=== PATIENT | female | born 1945 | race African-American/Black ===

== ENCOUNTER → 2016-07-17 | Outpatient (CLI) | payer OTHER, MEDICAID ==
[2016-07-13 08:08] VITALS: BP 121/73
[~2016-07-17] MED LIST: ACET500T55 PO; ALBU2.5V5 NEB; AMLO10TA2 PO; AMLO5TAB2 PO; ASPI-482 PO; ASPI81TA9 PO; CIPR250T30 PO; CLON0.1T PO; CLOP75TA PO; DONE10TA7 PO; DOXY100C2 PO; FAMO20TA5 PO; GLIM2TAB2 PO; HYDR-2869 PO; HYDR-971 PO; HYDR12.53 PO; HYDR12.58 PO; HYDR50TA6 PO; INSU100I13 SQ; INSU100I17 SQ; INSU100I27 SQ; LEVO250T25 PO; LINA5TAB PO; LOSA100T6 PO; METF500T4 PO; METO100T11 PO; METO50TA2 PO; POTA20PA PO; PREG50CA PO; PROAIR HFA8.5 GM IH; SPIR25TA PO
--- NOTE | 2016-07-17 08:13 | RAD ---
EXAM: Right lower extremity arterial Doppler with ultrasound ankle brachial index. HISTORY: Bilateral extremity nonhealing wound. COMPARISON: None. FINDINGS: Grayscale and Doppler analysis of the right lower extremity arterial system was performed. Ultrasound ankle brachial indices were also calculated. There are triphasic waveforms through the popliteal artery. They become monophasic within the trifurcation vessels proximally. The anterior tibial, posterior tibial and peroneal arteries are patent proximally. There is monophasic flow within the dorsalis previous and distal posterior tibial artery. There are no elevated peak systolic velocities suggestive of focal stenosis. The right brachial pressure was 154 mmHg. The right posterior tibial and dorsalis previous arteries were noncompressible and ankle brachial indices could not be calculated. IMPRESSION: 1. Findings consistent with severe flow limiting stenosis in the region of the proximal right trifurcation. The dorsalis pedis and distal posterior tibial arteries are patent. 2. The distal posterior tibial and dorsalis previous arteries were noncompressible and ankle brachial indices could not be calculated.
== END | disposition home or self-care (01) ==
LOC: US 06:43
PROVIDERS: ATTEND Preventive Medicine Undersea and Hyperbaric Medicine
DX: L97.919 Non-pressure chronic ulcer of unspecified part of right lower leg with unspecified severity (principal); M79.604 Pain in right leg
CPT/HCPCS: 93922; 93926

== ENCOUNTER 2016-07-21 08:10 | Outpatient (CLI) | payer OTHER, MEDICAID ==
[~2016-07-21] VITALS: Ht 175.3 cm; Wt 95.3 kg
[2016-07-21] VITALS (12 sets, daily range): BP systolic 124–178; BP diastolic 55–77
[2016-07-21 08:53] LABS: HEMATOCRIT 39.7 % (36.0-47.0); HEMOGLOBIN 13.2 g/dL (12.0-15.5); RED BLOOD COUNT 4.39 x10^6/uL (3.50-5.40); RED CELL DISTRIBUTION WIDTH 13.2 % (11.5-14.5); WHITE BLOOD COUNT 8.7 x10^3/uL (4.0-11.0)
[2016-07-21] MEDS ORDERED: IV NORMAL SALINE 1000ML BAG 1,000 ML IV SCH (09:00)
[2016-07-21] MEDS ORDERED: CARV12.52 PO (09:03)
[2016-07-21] MEDS ORDERED: HYDR25TA9 PO (09:03)
[2016-07-21] MEDS ORDERED: ATOR40TA59 PO (09:03)
[2016-07-21] MEDS ORDERED: IPRA3AMP NEB (09:03)
[2016-07-21] MEDS ORDERED: INSU100I13 SQ (09:03)
[2016-07-21] MEDS ORDERED: POTA10TA10 PO (09:03)
[2016-07-21] MEDS ORDERED: DICL100G7 TP (09:03)
[2016-07-21] MEDS ORDERED: SPIR25TA3 PO (09:03)
[2016-07-21] MEDS ORDERED: LIDO700A27 TP (09:03)
[2016-07-21] MEDS ORDERED: GABA-585 PO (09:03)
[2016-07-21] MEDS ORDERED: BUDE10.2 IH (09:03)
[2016-07-21] MEDS ORDERED: FLUT9.9S NS (09:03)
[2016-07-21] MEDS ORDERED: PROVENTIL HFA6.7 GM IH (09:03)
[2016-07-21 09:10] LABS: CALCIUM 10.1 mg/dL (8.5-10.1); CREATININE 1.3 mg/dL (0.6-1.0); GFR 48.7; POTASSIUM 3.6 mmol/L (3.5-5.1)
[2016-07-21 09:15] LABS: INR 1.1 (0.8-1.1); PROTHROMBIN TIME PATIENT 13.5 SEC (11.7-14.0)
[2016-07-21] MEDS ORDERED: IODIXANOL 320 MG/ML 100 ML VIAL. ONE (09:40)
[2016-07-21] MEDS ORDERED: LIDOCAINE 2% 20 ML VIAL. ONE (09:40)
[2016-07-21] MEDS ORDERED: FENTANYL PF 250 MCG/5 ML VIAL. ONE (09:44)
[2016-07-21] MEDS ORDERED: MIDAZOLAM HCL/PF 5 MG/5 ML VIAL ONE (09:44)
[2016-07-21] MEDS ORDERED: IODIXANOL 320 MG/ML 100 ML VIAL. IART ONE (09:45)
[2016-07-21] MEDS ORDERED: LIDOCAINE 2% 20 ML VIAL. IJ ONE (09:45)
[2016-07-21] MEDS ORDERED: MIDAZOLAM HCL/PF 5 MG/5 ML VIAL IV ONE (09:45)
[2016-07-21] MEDS ORDERED: FENTANYL PF 250 MCG/5 ML VIAL. IV ONE (09:45)
--- NOTE | 2016-07-21 10:07 | PDOC ---
MODERATE SEDATION ASSESSMENT RISKS/ALTERNATIVES Risks/Alternatives Risks and alternatives of this type of sedation and procedure discussed with: RISK/ALTERNATIVES: Patient H & P ON CHART H & P H & P on chart and reviewed for co-morbid conditions and appropriate labs. H&P ON CHART: Yes STATUS PREG STATUS ASSESSED: N/A MEDS/ALLERGIES REVIEWED Meds/Allergies Reviewed Medications and Allergies including time and route of recently administered narcotics and sedatives. MEDS/ALLERGIES REVIEWED: Yes ASA RATING ASA RATING: II AIRWAY ASSESSMENT Airway Assessment Airway patency, oral function limitations, presence of caps, crowns, dentures, partials, and ability to extend neck assessed. AIRWAY ASSESSMENT: Yes MALLAMPATI SCORE MALLAMPATI SCORE: II PRE-SEDATION ASSESSMENT PRE-SEDATION ASSESSMENT: Yes MILTON CASTANEDA MD Jul 21, 2016 10:07
[2016-07-21] MEDS ORDERED: IV 1/2 NORMAL SALINE 1,000 ML IV SCH (10:42)
[2016-07-21] MEDS ORDERED: ACETAMINOPHEN 325 MG TABLET. PO PRN (10:45)
--- NOTE | 2016-07-21 11:19 | CARD ---
APPROVED REPORT Patient StatusOUT-PATIENT Syrup Blender: Yelitza Chen RT (R) Procedure(s) performed: Aortogram with bilateral lower extremity runoff INDICATION FOR PROCEDURE The indication(s) include : Peripheral vascular disease, claudication and nonhealing ulcer right lowe r extremity. PROCEDURE NARRATIVE After explaining the risks, benefits and alternative options, informed consent the patient. Patient w as brought to the cardiac [facility] and her left groin was prepped and draped in the usual fashion. 20 mL of 2% lidocaine was infiltrated into the skin and subcutaneous tissues for local anesthesia. Katja rial access was obtained in the left common femoral artery and a 5 Welsh sheath was inserted. 5 Fren ch pigtail catheter was used to perform aortogram with bilateral lower extremity runoff. Following fi ndings were noted. FINDINGS 1. No significant stenosis involving the distal descending aorta, bilateral common and external laura c arteries. 2. No significant stenosis involving bilateral common femoral arteries. 3. 30% stenosis involving the distal segment of the right superficial femoral artery. 30% stenosis i nvolving the mid to distal segment of the left superficial femoral artery. 4. No significant stenosis involving bilateral popliteal arteries. 5. The right anterior tibial artery showed 100% chronic occlusion, posterior tibial artery showed 10 0% chronic total occlusion. The right peroneal artery showed 100% occlusion proximally with reconsti tution in the proximal to mid segment via collaterals. The distal segment of the peroneal arery showe d 100% occlusion with reconstitution of the dorsalis pedis via collaterals. 6. The left anterior tibial artery showed 100% chronic occlusion, posterior tibial artery showed 100 % chronic occlusion. The left peroneal artery showed 100% occlusion proximally with reconstitution o f proximal to mid segment via collaterals. Conclusion Severe below the knee peripheral vascular disease as described above Recommendations Vascular surgery consultation for possible surgical revascularization
== END 2016-07-21 14:30 | disposition home or self-care (01) ==
LOC: CCL 08:10
PROVIDERS: ATTEND Internal Medicine Cardiovascular Disease
DX: I73.9 Peripheral vascular disease, unspecified (principal); I10 Essential (primary) hypertension; M19.90 Unspecified osteoarthritis, unspecified site; E11.9 Type 2 diabetes mellitus without complications; Z90.710 Acquired absence of both cervix and uterus; Z87.39 Personal history of other diseases of the musculoskeletal system and connective tissue; Z86.73 Personal history of transient ischemic attack (TIA), and cerebral infarction without residual deficits; Z79.01 Long term (current) use of anticoagulants
CPT/HCPCS: 36200; 36415; 75630; 80048; 85027; 85610; 85730; C1769; C1771; C1892; J2250; J3010; J7030; Q9967

== ENCOUNTER → 2016-08-03 | Outpatient (CLI) | payer OTHER, MEDICAID ==
[2016-07-21 14:30] VITALS: BP 142/55
[~2016-08-03] MED LIST changes: +ATOR40TA59 PO; +BUDE10.2 IH; +CARV12.52 PO; +CEPH500C PO; +DICL100G7 TP; +FLUT9.9S NS; +GABA-585 PO; +HYDR25TA9 PO; +IPRA3AMP NEB; +LIDO700A27 TP; +POTA10TA10 PO; +PROVENTIL HFA6.7 GM IH; +SPIR25TA3 PO
== END | disposition home or self-care (01) ==
LOC: PMGWOUND 08:20
PROVIDERS: ATTEND Emergency Medicine Undersea and Hyperbaric Medicine
DX: I70.232 Atherosclerosis of native arteries of right leg with ulceration of calf (principal); E11.622 Type 2 diabetes mellitus with other skin ulcer; L97.911 Non-pressure chronic ulcer of unspecified part of right lower leg limited to breakdown of skin; I10 Essential (primary) hypertension; E11.40 Type 2 diabetes mellitus with diabetic neuropathy, unspecified; J42 Unspecified chronic bronchitis; M19.90 Unspecified osteoarthritis, unspecified site; E11.51 Type 2 diabetes mellitus with diabetic peripheral angiopathy without gangrene; Z86.73 Personal history of transient ischemic attack (TIA), and cerebral infarction without residual deficits
CPT/HCPCS: 99214

== ENCOUNTER 2016-08-04 11:06 | Inpatient (IN) | payer OTHER, MEDICAID ==
[~2016-08-04] VITALS: Ht 175.3 cm; Wt 94.8 kg
[~2016-08-04 11:06] MED LIST changes: +BUPIVACAINE 0.25% 50 ML VIAL. ONE; +CEFAZOLIN SODIUM 1 GM in IV NORMAL SALINE 500ML BAG 500 ML IRR ONE; -CEPH500C PO; +FENTANYL PF 100 MCG/2 ML VIAL. IV PRN; +GELATIN SPONGE SIZE 100. ONE; +HEPARIN S0DIUM 5,000 UNIT in IV NORMAL SALINE 500ML BAG 500 ML IRR ONE; +IOHEXOL 300 MG/ML 100ML VIAL. ONE; +IV RINGERS,LACTATED 1000ML 1,000 ML IV SCH; +LIDOCAINE 1% 1 ML SYRINGE. ID PRN; +LIDOCAINE 1% PF 48 ML, SODIUM BICARBONATE VIAL 12 MEQ in TOTAL VOLUME SYRINGE 60 ML ID ONE; +MORPHINE SULFATE 2 MG/ML DISP.SYRIN. IV PRN; +PAPAVERINE 60 MG/2 ML VIAL FOR OR ONLY. ONE; +PROCHLORPERAZINE 10 MG/2 ML VIAL. IV PRN; +SURGICEL FIBRILLAR 1X2 EACH. ONE; +THROMBIN 20,000 UNIT SPRAY.SYRN KIT TP ONE
[2016-08-04] MEDS ORDERED: LIDOCAINE 1% PF 48 ML, SODIUM BICARBONATE VIAL 12 MEQ in TOTAL VOLUME SYRINGE 60 ML ID ONE (11:15)
[2016-08-04] MEDS ORDERED: CEFAZOLIN 2GM PREMIX 50 ML IV ONE (11:15)
[2016-08-04] MEDS ORDERED: CEPH500C PO (11:42)
[2016-08-04 11:53] LABS: BASO # 0.1 x10^3/uL (0.0-0.2); BASO % 1 % (0-3); EOS % 3 % (0-3); HEMOGLOBIN 12.2 g/dL (12.0-15.5); LYMPH % 24 % (24-48); MEAN CORPUSCULAR HEMOGLOBIN 30 pg (25-35); MEAN CORPUSCULAR HGB CONC 32 g/dL (31-37); MEAN CORPUSCULAR VOLUME 93 fL (79-100); MONO % 7 % (0-9); NEUT % 65 % (31-73); PLATELET COUNT 238 x10^3/uL (140-400); RED CELL DISTRIBUTION WIDTH 13.5 % (11.5-14.5); WHITE BLOOD COUNT 8.6 x10^3/uL (4.0-11.0)
[2016-08-04 12:06] LABS: CALCIUM 9.9 mg/dL (8.5-10.1); CREATININE 1.3 mg/dL (0.6-1.0); GFR 48.7; POTASSIUM 3.6 mmol/L (3.5-5.1)
[2016-08-04 12:10] LABS: INR 1.1 (0.8-1.1); PROTHROMBIN TIME PATIENT 13.2 SEC (11.7-14.0)
[2016-08-04] MEDS ORDERED: DEXAMETHASONE SOD PHOS 20 MG/5 ML VIAL. ONE (12:56)
[2016-08-04] MEDS ORDERED: ONDANSETRON PF 4 MG/2 ML VIAL. ONE (12:56)
[2016-08-04] MEDS ORDERED: FENTANYL PF 100 MCG/2 ML VIAL. ONE ×3 (12:56→17:26)
[2016-08-04] MEDS ORDERED: PROPOFOL 20 ML IV ONE (12:56)
[2016-08-04] MEDS ORDERED: LIDOCAINE 2% 100 MG/5 ML DISP.SYRIN. ONE (12:56)
[2016-08-04] MEDS ORDERED: ROCURONIUM 50 MG/5 ML VIAL. ONE (12:56)
[2016-08-04] MEDS: IV NORMAL SALINE 1000ML BAG 1,000 ML IV SCH ×2 (13:54→23:54)
[2016-08-04] MEDS ORDERED: ONDANSETRON PF 4 MG/2 ML VIAL. IV PRN (14:00)
[2016-08-04] MEDS ORDERED: 0.9 % SODIUM CHLORIDE 10 ML DISP.SYRIN. IV PRN (14:00)
[2016-08-04] MEDS ORDERED: DIPHENHYDRAMINE HCL 25 MG CAPSULE PO PRN (14:00)
[2016-08-04] MEDS ORDERED: ZOLPIDEM 5 MG TABLET. PO PRN (14:00)
[2016-08-04] MEDS ORDERED: CALCIUM CARBONATE 500 MG TAB.CHEW PO PRN (14:00)
[2016-08-04] MEDS ORDERED: MAG HYDROX/ALUMINUM HYD/SIMETH 30 ML ORAL.SUSP PO PRN (14:00)
[2016-08-04] MEDS ORDERED: NALOXONE 0.4 MG/ML VIAL. IV PRN (14:00)
[2016-08-04] MEDS ORDERED: MORPHINE SULFATE 2 MG/ML DISP.SYRIN. IV PRN (14:00)
[2016-08-04] MEDS ORDERED: DIPHENHYDRAMINE 50 MG/ML VIAL IV PRN (14:00)
[2016-08-04] MEDS ORDERED: MIDAZOLAM HCL 2 MG/2 ML VIAL. ONE (14:02)
[2016-08-04] MEDS ORDERED: HEPARIN for IV BOLUS 10,000 UNIT/10 ML VIAL. ONE (14:27)
[2016-08-04] MEDS ORDERED: SEVOFLURANE > 120 MINUTES. IH ONE (17:07)
[2016-08-04] MEDS ORDERED: LABETALOL 20 MG/4 ML DISP.SYRIN. ONE (17:23)
[2016-08-04] MEDS ORDERED: hydrALAZINE 20 MG/ML VIAL. ONE (17:28)
--- NOTE | 2016-08-04 17:52 | PDOC ---
VASCULAR BRIEF OPERATIVE NOTE Date: Aug 04, 2016 Pre-Op Diagnosis ischemic ulcer right leg Post-Op Diagnosis same Procedure Performed right popliteal to peroneal artery bypass graft with ipsilateral saphenous vein , right leg debridement(excisional)_ Surgeon Israel Blood Loss 100ml DEISI CLEVELAND MD Aug 04, 2016 17:52
[2016-08-04] MEDS: FENTANYL PF 100 MCG/2 ML VIAL. IV PRN ×3 (18:30→19:56)
[2016-08-04 18:40] VITALS: BP 154/78
[2016-08-04] MEDS: CEFAZOLIN 2GM PREMIX 50 ML IV SCH (19:57)
[2016-08-04 20:00] VITALS: BP 147/78
[2016-08-04] MEDS: HYDROMORPHONE 2 MG/ML VIAL. IV PRN (21:16)
[2016-08-04 23:00] VITALS: BP 132/72
[2016-08-04] MEDS: OXYCODONE IR 5 MG TABLET. PO PRN (23:02)
[2016-08-04] MEDS: BENZOCAINE/MENTHOL LOZENGE. PO PRN (23:02)
[2016-08-05] MEDS: CEFAZOLIN 2GM PREMIX 50 ML IV SCH ×2 (02:09→08:36)
[2016-08-05] MEDS: HYDROCODONE/APAP 5/325MG TABLET. PO PRN ×4 (02:10→21:54)
[2016-08-05] MEDS: HYDROMORPHONE 2 MG/ML VIAL. IV PRN (02:11)
[2016-08-05 03:00] VITALS: BP 137/68
[2016-08-05 04:05] LABS: BASO % 0 % (0-3); EOS % 0 % (0-3); HEMATOCRIT 34.5 % (36.0-47.0); LYMPH % 8 % (24-48); MEAN CORPUSCULAR HEMOGLOBIN 30 pg (25-35); MEAN CORPUSCULAR HGB CONC 32 g/dL (31-37); MEAN CORPUSCULAR VOLUME 93 fL (79-100); MONO % 4 % (0-9); NEUT % 87 % (31-73); PLATELET COUNT 241 x10^3/uL (140-400); RED CELL DISTRIBUTION WIDTH 13.4 % (11.5-14.5); WHITE BLOOD COUNT 12.6 x10^3/uL (4.0-11.0)
[2016-08-05 04:15] LABS: CALCIUM 9.1 mg/dL (8.5-10.1); CREATININE 1.6 mg/dL (0.6-1.0); GFR 38.3
[2016-08-05] MEDS: BENZOCAINE/MENTHOL LOZENGE. PO PRN ×2 (05:47→13:39)
[2016-08-05] MEDS: OXYCODONE IR 5 MG TABLET. PO PRN ×4 (05:47→20:14)
[2016-08-05 07:00] VITALS: BP 159/66
[2016-08-05] MEDS ORDERED: ASPIRIN ENTERIC COATED 325 MG TABLET.DR. PO SCH (08:00)
[2016-08-05] MEDS: ENOXAPARIN 40 MG/0.4 ML SYRINGE. SQ SCH (08:36)
--- NOTE | 2016-08-05 09:27 | RAD ---
Indication postop. Incorrect count. Possible foreign body. AP and lateral views targeted to the right knee were obtained. Surgical clips are noted. Skin bertha are additionally noted. There is air in the soft tissues compatible with recent operative intervention. A definite unexpected radiopaque foreign body is not seen.
[2016-08-05 11:00] VITALS: BP 130/55
[2016-08-05 13:20] LABS: PLT ESTIMATE ADEQUATE (ADEQUATE)
[2016-08-05 14:26] LABS: BASO % 0 % (0-3); EOS % 0 % (0-3); HEMATOCRIT 33.7 % (36.0-47.0); HEMOGLOBIN 10.6 g/dL (12.0-15.5); LYMPH # 2.1 x10^3/uL (1.0-4.8); LYMPH % 15 % (24-48); MEAN CORPUSCULAR HEMOGLOBIN 30 pg (25-35); MEAN CORPUSCULAR HGB CONC 31 g/dL (31-37); MEAN CORPUSCULAR VOLUME 94 fL (79-100); MONO % 10 % (0-9); NEUT % 74 % (31-73); PLATELET COUNT 220 x10^3/uL (140-400); RED BLOOD COUNT 3.58 x10^6/uL (3.50-5.40); RED CELL DISTRIBUTION WIDTH 13.5 % (11.5-14.5); WHITE BLOOD COUNT 13.8 x10^3/uL (4.0-11.0)
[2016-08-05 15:00] VITALS: BP 144/70
[2016-08-05] MEDS ORDERED: INSULIN DETEMIR 300 UNITS/3 ML INSULN.PEN. SQ SCH (17:30)
[2016-08-05] MEDS ORDERED: DEXTROSE 50% 25 GM / 50ML DISP.SYRIN. IV PRN (17:30)
[2016-08-05] MEDS ORDERED: ALBUTEROL SULFATE 2.5 MG/3 ML NEBU. NEB PRN (17:45)
[2016-08-05] MEDS: INSULIN ASPART 300 UNITS/3 ML INSULN.PEN SQ SCH (17:49)
[2016-08-05] MEDS: SPIRONOLACTONE 25 MG TABLET PO SCH (17:54)
[2016-08-05] MEDS: LOSARTAN POTASSIUM 50 MG TABLET. PO SCH (17:55)
[2016-08-05] MEDS: AMLODIPINE BESYLATE 10 MG TABLET PO SCH (17:55)
[2016-08-05] MEDS: HYDROCHLOROTHIAZIDE 25 MG TABLET PO SCH (17:55)
[2016-08-05] MEDS ORDERED: ASPIRIN ENTERIC COATED 81 MG TABLET.DR. PO SCH (18:00)
[2016-08-05 19:00] VITALS: BP 124/55
--- NOTE | 2016-08-05 19:18 | PDOC ---
Provider Note Provider Note POD#1c/ incisional pain Dressing dry foot warm LAB H/H Cr1.6 CHO 282 IMP doing well PLAN can transfer from tele replace MG Increase activity DEISI CLEVELAND MD Aug 05, 2016 19:18
[2016-08-05] MEDS ORDERED: MAGNESIUM SULFATE IV ONE (19:30)
[2016-08-05] MEDS: BUDESONIDE 0.5 MG/2 ML NEBU. NEB SCH (19:30)
[2016-08-05] MEDS ORDERED: SODIUM CHLORIDE 0.9% IV ONE (19:30)
[2016-08-05] MEDS: ALBUTEROL SULFATE 2.5 MG/3 ML NEBU. NEB SCH (19:30)
[2016-08-05] MEDS: GABAPENTIN 100 MG CAPSULE. PO SCH (20:12)
[2016-08-05] MEDS: DONEPEZIL HCL 10 MG TABLET. PO SCH (20:14)
[2016-08-05] MEDS: ATORVASTATIN CALCIUM 40 MG TABLET. PO SCH (20:14)
[2016-08-05 23:00] VITALS: BP 153/58
[2016-08-06 02:56] VITALS: BP 145/64
[2016-08-06] MEDS: OXYCODONE IR 5 MG TABLET. PO PRN ×3 (05:21→18:57)
[2016-08-06 07:00] VITALS: BP 116/50
[2016-08-06] MEDS: ENOXAPARIN 40 MG/0.4 ML SYRINGE. SQ SCH (07:32)
[2016-08-06] MEDS: CARVEDILOL 12.5 MG TABLET PO SCH ×2 (07:33→16:37)
[2016-08-06] MEDS: HYDROCODONE/APAP 5/325MG TABLET. PO PRN ×4 (07:33→23:01)
[2016-08-06] MEDS: ASPIRIN ENTERIC COATED 81 MG TABLET.DR. PO SCH (07:34)
[2016-08-06] MEDS: INSULIN ASPART 300 UNITS/3 ML INSULN.PEN SQ SCH ×3 (07:36→17:54)
[2016-08-06] MEDS ORDERED: POTASSIUM CHLORIDE 10 MEQ TABLET.ER. PO SCH (08:00)
[2016-08-06] MEDS: ALBUTEROL SULFATE 2.5 MG/3 ML NEBU. NEB SCH ×4 (08:20→20:42)
[2016-08-06] MEDS: BUDESONIDE 0.5 MG/2 ML NEBU. NEB SCH ×2 (08:20→20:42)
[2016-08-06] MEDS: GABAPENTIN 100 MG CAPSULE. PO SCH ×3 (09:13→21:15)
[2016-08-06] MEDS: HYDROCHLOROTHIAZIDE 25 MG TABLET PO SCH (09:13)
[2016-08-06] MEDS: SPIRONOLACTONE 25 MG TABLET PO SCH (09:13)
[2016-08-06] MEDS: AMLODIPINE BESYLATE 10 MG TABLET PO SCH (09:15)
--- NOTE | 2016-08-06 10:13 | PDOC ---
Provider Note Provider Note VASCULAR, POD#2 still c/o incisional pain Dressings dry foot warm biphasic Doppler DP right Blood sugars still elevated but improved IMP doing well TAMAR to floor DEISI CLEVELAND MD Aug 06, 2016 10:13
[2016-08-06] MEDS ORDERED: INSULIN DETEMIR 300 UNITS/3 ML INSULN.PEN. SQ ONE (10:30)
--- NOTE | 2016-08-06 10:35 | PDOC ---
Provider Note Provider Note [id number] ANDREY GASCA MD Aug 06, 2016 10:35
[2016-08-06] MEDS: LOSARTAN POTASSIUM 50 MG TABLET. PO SCH (10:50)
[2016-08-06 11:00] VITALS: BP 136/54
[2016-08-06 15:00] VITALS: BP 146/59
--- NOTE | 2016-08-06 18:34 | CONS ---
DATE OF CONSULTATION: 08/06/2016 CHIEF COMPLAINT: Diabetes. HISTORY OF PRESENT ILLNESS: A 71-year-old black female patient of Dr. Mackenzie who underwent a right-sided femoral popliteal bypass per Dr. Wood on 08/04/2016. She is recovering well so far and I was asked to consult regarding diabetes and medical management. Blood sugars have been mildly elevated since the surgery and review of the record shows hemoglobin A1c was 7.9 in mid 03/2016. She has no other specific complaints at this time. PAST MEDICAL HISTORY: Well documented in the old record. HOME MEDICATIONS: Levemir 28 and NovoLog 5 with meals. Multiple medications listed per the chart. ALLERGIES: No allergies. SOCIAL HISTORY: Single, nonsmoker, nondrinker. FAMILY HISTORY: Unremarkable. REVIEW OF SYSTEMS: No other complaints. OBJECTIVE: ENT: All within normal limits. NECK: No masses, nodes or bruits. LUNGS: Clear. CARDIOVASCULAR: Regular rate. No irregular beat, murmur or tachycardia. ABDOMEN: Soft, benign and nontender. EXTREMITIES: Right leg has dressings on the right medial calf consistent with her postoperative care and also wound on the anterior miner, which is covered as well. Distal pulses are present, right greater than left foot. NEUROLOGIC: Physiologic, moves all extremities. Gait not tested. She has a reasonable sensation in both lower extremities. Mental status is intact. LABORATORY STUDY: Showed mild renal insufficiency, mildly elevated potassium of 5.0. ASSESSMENT: 1. Insulin-dependent diabetes with fairly good control for her age. 2. Status post right femoral arterial bypass for peripheral vascular disease. 3. Chronic kidney disease 3, stable. 4. Mild hyperkalemia, likely secondary to meds. 5. History of hypertension. PLAN: We will increase Levemir mildly and resume AC dosing for now. We will hold Aldactone and potassium given her mild hyperkalemia. ANDREY GASCA MD DR: ILIANA/shane JOB#: [id number] / [id number]
[2016-08-06 19:10] VITALS: BP 149/60
[2016-08-06] MEDS: ATORVASTATIN CALCIUM 40 MG TABLET. PO SCH (21:14)
[2016-08-06] MEDS: DONEPEZIL HCL 10 MG TABLET. PO SCH (21:15)
[2016-08-06] MEDS: INSULIN DETEMIR 300 UNITS/3 ML INSULN.PEN. SQ SCH (21:24)
[2016-08-06 23:23] VITALS: BP 179/77
[2016-08-07 03:34] VITALS: BP 153/58
[2016-08-07] MEDS: HYDROCODONE/APAP 5/325MG TABLET. PO PRN ×4 (04:42→21:59)
[2016-08-07 07:00] VITALS: BP 125/65
[2016-08-07] MEDS: GABAPENTIN 100 MG CAPSULE. PO SCH ×3 (08:30→21:18)
[2016-08-07] MEDS: AMLODIPINE BESYLATE 10 MG TABLET PO SCH (08:30)
[2016-08-07] MEDS: ASPIRIN ENTERIC COATED 81 MG TABLET.DR. PO SCH (08:30)
[2016-08-07] MEDS: HYDROCHLOROTHIAZIDE 25 MG TABLET PO SCH (08:31)
[2016-08-07] MEDS: CARVEDILOL 12.5 MG TABLET PO SCH ×2 (08:31→17:07)
[2016-08-07] MEDS: LOSARTAN POTASSIUM 50 MG TABLET. PO SCH (08:32)
[2016-08-07] MEDS: ENOXAPARIN 40 MG/0.4 ML SYRINGE. SQ SCH (08:32)
--- NOTE | 2016-08-07 08:44 | PDOC ---
Provider Note Provider Note vss, no temp, no new sxs- glucose 140, 211, w/ added levemir- will add more novolog prn, rest same ANDREY GASAC MD Aug 07, 2016 08:44
[2016-08-07] MEDS: INSULIN ASPART 300 UNITS/3 ML INSULN.PEN SQ SCH ×3 (08:48→17:11)
[2016-08-07] MEDS: ALBUTEROL SULFATE 2.5 MG/3 ML NEBU. NEB SCH ×4 (09:13→20:07)
[2016-08-07] MEDS: BUDESONIDE 0.5 MG/2 ML NEBU. NEB SCH ×2 (09:13→20:07)
--- NOTE | 2016-08-07 09:27 | PDOC ---
SURGICAL PROGRESS NOTE Subjective pt complains of incisional pain but less so Vital Signs Vital Signs Date Time Temp Pulse Resp B/P Pulse Ox O2 Delivery O2 Flow Rate FiO2 08/07/16 09:10 95 Room Air 08/07/16 08:32 69 125/65 08/07/16 07:00 97.8 16 97.8 08/06/16 07:33 2.0 I&O Intake and Output 08/07/16 07:00 Intake Total 1860 ml Output Total 825 ml Balance 1035 ml Intake Oral 1860 ml Output Urine Total 825 ml # Voids 5 Extremities: Other (dressings right leg dry, wound dressing intact; foot warm) Labs Laboratory Tests Test 08/05/16 14:08 08/05/16 17:04 08/05/16 20:18 08/06/16 07:30 White Blood Count 13.8x10^3/uL (4.0-11.0) Red Blood Count 3.58x10^6/uL (3.50-5.40) Hemoglobin 10.6g/dL (12.0-15.5) Hematocrit 33.7% (36.0-47.0) Mean Corpuscular Volume 94fL (79-100) Mean Corpuscular Hemoglobin 30pg (25-35) Mean Corpuscular Hemoglobin Concent 31g/dL (31-37) Red Cell Distribution Width 13.5% (11.5-14.5) Platelet Count 220x10^3/uL (140-400) Neutrophils (%) (Auto) 74% (31-73) Lymphocytes (%) (Auto) 15% (24-48) Monocytes (%) (Auto) 10% (0-9) Eosinophils (%) (Auto) 0% (0-3) Basophils (%) (Auto) 0% (0-3) Neutrophils # (Auto) 10.2x10^3uL (1.8-7.7) Lymphocytes # (Auto) 2.1x10^3/uL (1.0-4.8) Monocytes # (Auto) 1.4x10^3/uL (0.0-1.1) Eosinophils # (Auto) 0.0x10^3/uL (0.0-0.7) Basophils # (Auto) 0.0x10^3/uL (0.0-0.2) Magnesium Level 1.5mg/dL (1.8-2.4) Glucose (Fingerstick) 282mg/dL (70-99) 301mg/dL (70-99) 190mg/dL (70-99) Test 08/06/16 11:50 08/06/16 17:41 08/06/16 20:48 08/07/16 07:35 Glucose (Fingerstick) 252mg/dL (70-99) 211mg/dL (70-99) 211mg/dL (70-99) 141mg/dL (70-99) Laboratory Tests Test 08/06/16 11:50 08/06/16 17:41 08/06/16 20:48 08/07/16 07:35 Glucose (Fingerstick) 252mg/dL (70-99) 211mg/dL (70-99) 211mg/dL (70-99) 141mg/dL (70-99) Problem List Problems Medical Problems: (1) Non-pressure ulcer of right lower extremity, limited to breakdown of skin Status: Acute Assessment/Plan Imp: patent bypass graft with ant. wound Plan: cont. wound care social group worker to assist with discharge planning. Problems: TRACY ADAMES II, MD Aug 07, 2016 09:27
[2016-08-07 11:00] VITALS: BP 148/54
[2016-08-07 15:00] VITALS: BP 139/56
[2016-08-07 19:30] VITALS: BP 137/59
[2016-08-07] MEDS: DONEPEZIL HCL 10 MG TABLET. PO SCH (21:00)
[2016-08-07] MEDS: ATORVASTATIN CALCIUM 40 MG TABLET. PO SCH (21:18)
[2016-08-07] MEDS: INSULIN DETEMIR 300 UNITS/3 ML INSULN.PEN. SQ SCH (21:21)
[2016-08-07 23:01] VITALS: BP 140/80
[2016-08-08 03:23] VITALS: BP 155/69
[2016-08-08 07:00] VITALS: BP 165/75
[2016-08-08] MEDS: ALBUTEROL SULFATE 2.5 MG/3 ML NEBU. NEB SCH ×4 (07:58→19:35)
[2016-08-08] MEDS: BUDESONIDE 0.5 MG/2 ML NEBU. NEB SCH ×2 (07:58→19:35)
[2016-08-08] MEDS ORDERED: INSULIN DETEMIR 300 UNITS/3 ML INSULN.PEN. SQ ONE (08:15)
--- NOTE | 2016-08-08 08:20 | PDOC ---
Provider Note Provider Note glucose still around 200, will add 6u more levemir for now, rest same ANDREY GASCA MD Aug 08, 2016 08:20
[2016-08-08] MEDS: AMLODIPINE BESYLATE 10 MG TABLET PO SCH (09:47)
[2016-08-08] MEDS: GABAPENTIN 100 MG CAPSULE. PO SCH ×3 (09:47→20:41)
[2016-08-08] MEDS: HYDROCHLOROTHIAZIDE 25 MG TABLET PO SCH (09:47)
[2016-08-08] MEDS: ASPIRIN ENTERIC COATED 81 MG TABLET.DR. PO SCH (09:47)
[2016-08-08] MEDS: ENOXAPARIN 40 MG/0.4 ML SYRINGE. SQ SCH (09:47)
[2016-08-08] MEDS: CARVEDILOL 12.5 MG TABLET PO SCH ×2 (09:48→17:40)
[2016-08-08] MEDS: LOSARTAN POTASSIUM 50 MG TABLET. PO SCH (09:48)
[2016-08-08] MEDS: HYDROCODONE/APAP 5/325MG TABLET. PO PRN ×2 (09:54→20:48)
[2016-08-08] MEDS: INSULIN ASPART 300 UNITS/3 ML INSULN.PEN SQ SCH ×3 (09:58→17:46)
[2016-08-08 10:28] LABS: HEMATOCRIT 35.3 % (36.0-47.0); HEMOGLOBIN 11.6 g/dL (12.0-15.5); RED BLOOD COUNT 3.88 x10^6/uL (3.50-5.40); RED CELL DISTRIBUTION WIDTH 13.2 % (11.5-14.5); WHITE BLOOD COUNT 9.8 x10^3/uL (4.0-11.0)
[2016-08-08 10:43] LABS: CALCIUM 9.7 mg/dL (8.5-10.1); CREATININE 1.3 mg/dL (0.6-1.0); GFR 48.7; MAGNESIUM 1.8 mg/dL (1.8-2.4); POTASSIUM 4.1 mmol/L (3.5-5.1)
[2016-08-08 11:00] VITALS: BP 138/57
--- NOTE | 2016-08-08 11:49 | PDOC ---
PROGRESS NOTES Subjective Subjective "I feel pretty worn out still." Complains of incisional pain. Objective Objective Vascular Surgery - POD#4 Right popliteal to peroneal artery bypass graft with ipsilateral saphenous vein, right leg debridement(excisional) O: Sitting in chair working with PT. CV: RRR. Vital signs stable. Pulm: Anteriorly clear. No dyspnea or SOB Abd: Rounded and soft. Active sounds. +BM yesterday. No nausea. RLE: Incision intact. No drainage. Chronic miner wound base very dry. Needs moisture applied. Doppled bypass graft and DP pulse. Lab: Glucose levels still labile. Renal function normalizing back to her baseline. Assessment/Plan: 1. PAD - POD#4 RLE with patent bypass. Continue antiplatelet therapy on ASA 2. Consult wound care for chronic wound to right miner. 3. Consult social and political studies professor for discharge planning and probable placement upon d /c. Should be ready next 24-48 hours. 4. CKD - back to baseline for patient and potassium level normalized. 5. Appreciate PCP assistance with diabetic mgmt while hospitalized. 6. Continue PT/OT for strengthening. May shower Vital Signs Date Time Temp Pulse Resp B/P Pulse Ox O2 Delivery O2 Flow Rate FiO2 08/08/16 11:19 Room Air 08/08/16 09:48 72 165/75 08/08/16 07:56 95 08/08/16 07:00 98.0 18 98.0 08/07/16 08:00 2.0 Intake and Output 08/08/16 07:00 Intake Total 240 ml Balance 240 ml Intake Oral 240 ml # Voids 5 # Bowel Movements 1 Assessment Assessment Problems Medical Problems: (1) Non-pressure ulcer of right lower extremity, limited to breakdown of skin Status: Acute Comment Review of Relevant I have reviewed the following items joel (where applicable) has been applied. Labs Laboratory Tests Test 08/06/16 11:50 08/06/16 17:41 08/06/16 20:48 08/07/16 07:35 Glucose (Fingerstick) 252mg/dL (70-99) 211mg/dL (70-99) 211mg/dL (70-99) 141mg/dL (70-99) Test 08/07/16 10:55 08/07/16 16:20 08/07/16 21:10 08/08/16 07:42 Glucose (Fingerstick) 190mg/dL (70-99) 216mg/dL (70-99) 239mg/dL (70-99) 150mg/dL (70-99) Test 08/08/16 10:14 White Blood Count 9.8x10^3/uL (4.0-11.0) Red Blood Count 3.88x10^6/uL (3.50-5.40) Hemoglobin 11.6g/dL (12.0-15.5) Hematocrit 35.3% (36.0-47.0) Mean Corpuscular Volume 91fL (79-100) Mean Corpuscular Hemoglobin 30pg (25-35) Mean Corpuscular Hemoglobin Concent 33g/dL (31-37) Red Cell Distribution Width 13.2% (11.5-14.5) Platelet Count 247x10^3/uL (140-400) Sodium Level 142mmol/L (136-145) Potassium Level 4.1mmol/L (3.5-5.1) Chloride Level 104mmol/L (98-107) Carbon Dioxide Level 32mmol/L (21-32) Anion Gap 6 (6-14) Blood Urea Nitrogen 26mg/dL (7-20) Creatinine 1.3mg/dL (0.6-1.0) Estimated GFR (Cockcroft-Gault) 48.7 Glucose Level 229mg/dL (70-99) Calcium Level 9.7mg/dL (8.5-10.1) Magnesium Level 1.8mg/dL (1.8-2.4) Laboratory Tests Test 08/07/16 16:20 08/07/16 21:10 08/08/16 07:42 08/08/16 10:14 Glucose (Fingerstick) 216mg/dL (70-99) 239mg/dL (70-99) 150mg/dL (70-99) White Blood Count 9.8x10^3/uL (4.0-11.0) Red Blood Count 3.88x10^6/uL (3.50-5.40) Hemoglobin 11.6g/dL (12.0-15.5) Hematocrit 35.3% (36.0-47.0) Mean Corpuscular Volume 91fL (79-100) Mean Corpuscular Hemoglobin 30pg (25-35) Mean Corpuscular Hemoglobin Concent 33g/dL (31-37) Red Cell Distribution Width 13.2% (11.5-14.5) Platelet Count 247x10^3/uL (140-400) Sodium Level 142mmol/L (136-145) Potassium Level 4.1mmol/L (3.5-5.1) Chloride Level 104mmol/L (98-107) Carbon Dioxide Level 32mmol/L (21-32) Anion Gap 6 (6-14) Blood Urea Nitrogen 26mg/dL (7-20) Creatinine 1.3mg/dL (0.6-1.0) Estimated GFR (Cockcroft-Gault) 48.7 Glucose Level 229mg/dL (70-99) Calcium Level 9.7mg/dL (8.5-10.1) Magnesium Level 1.8mg/dL (1.8-2.4) Medications Current Medications Heparin Sodium (Porcine) 5000 unit/Sodium Chloride 505 ml @ 505 mls/hr 1X PERIOP ONCE IRR Last administered on 08/04/16 14:29; Start 08/04/16 at 08:00 ; Stop 08/04/16 at 08:59; Status DC Cefazolin Sodium/ Sodium Chloride (Ancef/Iv Sodium Chloride 0.9% 500ml Bag) 500 ml @ 500 mls/hr 1X PERIOP ONCE IRR Last administered on 08/04/16 14:29; Start 08/04/16 at 08:00; Stop 08/04/16 at 08:59; Status DC Fentanyl Citrate (Fentanyl 2ml Vial) 25 mcg PRN Q5MIN PRN IV MILD PAIN; Start 08/04/16 at 07:00; Stop 08/05/16 at 06:59; Status DC Fentanyl Citrate (Fentanyl 2ml Vial) 50 mcg PRN Q5MIN PRN IV MODERATE PAIN Last administered on 08/04/16 19:56; Start 08/04/16 at 07:00; Stop 08/05/16 at 06:59; Status DC Morphine Sulfate 1 mg 1 mg PRN Q10MIN PRN IV SEVERE PAIN; Start 08/04/16 at 07: 00; Stop 08/05/16 at 06:59; Status DC Lactated Ringer's (Iv Lactated Ringers) 1,000 ml @ 30 mls/hr Q24H IV Last administered on 08/04/16 12:16; Start 08/04/16 at 07:00; Stop 08/04/16 at 18:59 ; Status DC Lidocaine HCl 2 ml 1X PRN PRN ID IV START; Start 08/04/16 at 07:00; Stop at 06:59; Status DC Hydromorphone HCl (Dilaudid) 0.5 mg PRN Q10MIN PRN IV SEVERE PAIN, Second choice Last administered on 08/05/16 02:11; Start 08/04/16 at 07:00; Stop 08/05 at 06:59; Status DC Prochlorperazine Edisylate (Compazine) 5 mg PACU PRN PRN IV NAUSEA; Start 08/04 at 07:00; Stop 08/05/16 at 06:59; Status DC Bupivacaine HCl (Marcaine 0.25%) 50 ml STK-MED ONCE .ROUTE ; Start 08/04/16 at 06:49; Stop 08/04/16 at 06:50; Status DC Papaverine HCl 60 mg STK-MED ONCE .ROUTE ; Start 08/04/16 at 06:49; Stop at 06:50; Status DC Iohexol (Omnipaque 300 Mg/ml) 100 ml STK-MED ONCE .ROUTE ; Start 08/04/16 at 06: 50; Stop 08/04/16 at 06:51; Status DC Thrombin 20,000 unit STK-MED ONCE TP ; Start 08/04/16 at 06:50; Stop 08/04/16 at 06:51; Status DC Gelatin (Gelfoam Size 100) 1 each STK-MED ONCE .ROUTE ; Start 08/04/16 at 06:50 ; Stop 08/04/16 at 06:51; Status DC Cellulose 1 each STK-MED ONCE .ROUTE Last administered on 08/04/16 14:29; Start 08/04/16 at 10:53; Stop 08/04/16 at 10:54; Status DC Cellulose 1 each 1 each STK-MED ONCE .ROUTE Last administered on 08/04/16 14: 29; Start 08/04/16 at 10:53; Stop 08/04/16 at 10:54; Status DC Cefazolin Sodium/ Dextrose 50 ml @ 100 mls/hr 1X ONCE IV Last administered on 08/04/16 13:57; Start 08/04/16 at 11:15; Stop 08/04/16 at 11:44; Status DC Lidocaine HCl 48 ml/Sodium Bicarbonate 12 meq/Miscellaneous 60 ml @ 60 mls/hr 1X PERIOP ONCE ID ; Start 08/04/16 at 11:06; Stop 08/04/16 at 12:05; Status DC Lidocaine HCl/ Sodium Bicarbonate/ Miscellaneous 120 ml @ 60 mls/hr 1X PERIOP ONCE ID ; Start 08/04/16 at 11:15; Stop 08/04/16 at 12:14; Status DC Aspirin (Ecotrin) 325 mg DAILYWBKFT PO Last administered on 08/05/16 08:36; Start 08/05/16 at 08:00; Stop 08/05/16 at 17:23; Status DC Oxycodone HCl (Roxicodone) 5 mg PRN Q3HRS PRN PO MODERATE PAIN Last administered on 08/06/16 18:57; Start 08/04/16 at 14:00 Al Hydroxide/Mg Hydroxide (Mylanta Plus Xs) 30 ml PRN Q3HRS PRN PO HEARTBURN / GAS; Start 08/04/16 at 14:00 Calcium Carbonate/ Glycine (Tums) 500 mg PRN Q3HRS PRN PO INDIGESTION; Start at 14:00 Diphenhydramine HCl (Benadryl) 25 mg PRN Q6HRS PRN PO ITCHING; Start 08/04/16 at 14:00 Diphenhydramine HCl (Benadryl) 25 mg PRN Q6HRS PRN IV ITCHING; Start 08/04/16 at 14:00 Zolpidem Tartrate (Ambien) 5 mg PRN QHS PRN PO INSOMNIA; Start 08/04/16 at 14: 00 Naloxone HCl (Narcan) 0.1 mg PRN Q2MIN PRN IV ADMIN; Start 08/04/16 at 14:00 Enoxaparin Sodium (Lovenox 40mg Syringe) 40 mg Q24H SQ Last administered on 09:47; Start 08/05/16 at 08:00 Sodium Chloride 3 ml 3 ml QSHIFT PRN IV AFTER MEDS AND BLOOD DRAWS; Start 08/04 at 14:00 Sodium Chloride (Iv Sodium Chloride 0.9% 1000ml Bag) 1,000 ml @ 100 mls/hr Q10H IV Last administered on 08/04/16 23:54; Start 08/04/16 at 13:54; Stop at 17:32; Status DC Acetaminophen/ Hydrocodone Bitart (Lortab 5/325) 1 tab PRN Q4HRS PRN PO MILD PAIN Last administered on 08/08/16 09:54; Start 08/04/16 at 14:00 Morphine Sulfate 1 mg PRN Q1HR PRN IV PAIN; Start 08/04/16 at 14:00 Ondansetron HCl 4 mg 4 mg PRN Q6HRS PRN IV NAUESA, 1ST CHOICE; Start 08/04/16 at 14:00 Cefazolin Sodium/ Dextrose (Ancef 2gm Premix) 50 ml @ 100 mls/hr Q6H IV Last administered on 08/05/16 08:36; Start 08/04/16 at 20:00; Stop 08/05/16 at 08:29 ; Status DC Throat Lozenges (Cepacol Sore Throat Lozenge) 1 nohelia PRN Q2HRS PRN PO SORE THROAT Last administered on 08/05/16 13:39; Start 08/04/16 at 23:00 Dexamethasone Sodium Phosphate (Decadron) 20 mg STK-MED ONCE .ROUTE ; Start at 12:56; Stop 08/05/16 at 11:55; Status DC Ondansetron HCl 4 mg 4 mg STK-MED ONCE .ROUTE ; Start 08/04/16 at 12:56; Stop at 11:55; Status DC Propofol (Diprivan) 20 ml @ As Directed STK-MED ONCE IV ; Start 08/04/16 at 12: 56; Stop 08/05/16 at 11:55; Status DC Lidocaine HCl 100 mg STK-MED ONCE .ROUTE ; Start 08/04/16 at 12:56; Stop at 11:55; Status DC Rocuronium [place] (Zemuron) 50 mg STK-MED ONCE .ROUTE ; Start 08/04/16 at 12:56 ; Stop 08/05/16 at 11:55; Status DC Fentanyl Citrate (Fentanyl 2ml Vial) 100 mcg STK-MED ONCE .ROUTE ; Start at 12:56; Stop 08/05/16 at 11:55; Status DC Midazolam HCl (Versed) 2 mg STK-MED ONCE .ROUTE ; Start 08/04/16 at 14:02; Stop 08/05/16 at 11:55; Status DC Fentanyl Citrate (Fentanyl 2ml Vial) 100 mcg STK-MED ONCE .ROUTE ; Start at 14:11; Stop 08/05/16 at 11:55; Status DC Heparin Sodium (Porcine) 10,000 unit STK-MED ONCE .ROUTE ; Start 08/04/16 at 14: 27; Stop 08/05/16 at 11:55; Status DC Sevoflurane (Ultane) 90 ml STK-MED ONCE IH ; Start 08/04/16 at 17:07; Stop 08/05 at 11:56; Status DC Labetalol HCl (Normodyne) 20 mg STK-MED ONCE .ROUTE ; Start 08/04/16 at 17:23; Stop 08/05/16 at 11:56; Status DC Fentanyl Citrate (Fentanyl 2ml Vial) 100 mcg STK-MED ONCE .ROUTE ; Start at 17:26; Stop 08/05/16 at 11:56; Status DC Hydralazine HCl (Apresoline) 20 mg STK-MED ONCE .ROUTE ; Start 08/04/16 at 17:28 ; Stop 08/05/16 at 11:56; Status DC Amlodipine Besylate (Norvasc) 10 mg DAILY PO Last administered on 08/08/16 09: 47; Start 08/05/16 at 18:00 Aspirin (Ecotrin) 81 mg DAILY08 PO ; Start 08/05/16 at 18:00; Stop 08/05/16 at 18:00; Status DC Atorvastatin Calcium (Lipitor) 40 mg HS PO Last administered on 08/07/16 21:18 ; Start 08/05/16 at 21:00 Carvedilol (Coreg) 12.5 mg BIDWMEALS PO Last administered on 08/08/16 09:48; Start 08/06/16 at 08:00 Donepezil HCl (Aricept) 10 mg HS PO Last administered on 08/06/16 21:15; Start 08/05/16 at 21:00; Stop 08/07/16 at 13:13; Status DC Gabapentin (Neurontin) 100 mg TID PO Last administered on 08/08/16 09:47; Start 08/05/16 at 21:00 Hydrochlorothiazide (Hydrodiuril) 25 mg DAILY PO Last administered on 09:47; Start 08/05/16 at 18:00 Spironolactone (Aldactone) 12.5 mg DAILY PO Last administered on 08/06/16 09: 13; Start 08/05/16 at 18:00; Stop 08/06/16 at 10:22; Status DC Albuterol Sulfate (Ventolin Neb Soln) 2.5 mg PRN Q4HRS PRN NEB SOA; Start 08/05 at 17:45 Budesonide (Pulmicort) 0.5 mg RTBID NEB Last administered on 08/08/16 07:58; Start 08/05/16 at 20:00 Insulin Detemir (Levemir) 28 units QHS SQ Last administered on 08/05/16 17:53 ; Start 08/05/16 at 17:30; Stop 08/06/16 at 10:31; Status DC Losartan Potassium (Cozaar) 100 mg DAILY PO Last administered on 08/08/16 09: 48; Start 08/05/16 at 18:00 Potassium Chloride (Klor-Con) 10 meq DAILYWBKFT PO Last administered on 07:34; Start 08/06/16 at 08:00; Stop 08/06/16 at 10:22; Status DC Insulin Aspart (Novolog) 0-7 UNITS TIDWMEALS SQ Last administered on 08/06/16 07:36; Start 08/05/16 at 17:30; Stop 08/06/16 at 10:31; Status DC Dextrose 12.5 gm PRN Q15MIN PRN IV SEE COMMENTS; Start 08/05/16 at 17:30 Aspirin (Ecotrin) 81 mg DAILY08 PO Last administered on 08/08/16 09:47; Start 08/06/16 at 08:00 Albuterol Sulfate 2.5 mg 2.5 mg RTQID NEB Last administered on 08/08/16 07:58 ; Start 08/05/16 at 20:00 Magnesium Sulfate/ Sodium Chloride (Iv Normal Saline 150ml) 156 ml @ 35.333 mls / hr 1X ONCE IV Last administered on 08/05/16 20:15; Start 08/05/16 at 19:30 ; Stop 08/05/16 at 23:54; Status DC Insulin Detemir (Levemir) 34 units QHS SQ Last administered on 08/07/16 21:21 ; Start 08/06/16 at 21:00; Stop 08/08/16 at 08:07; Status DC Insulin Detemir (Levemir) 6 units 1X ONCE SQ Last administered on 08/06/16 12 :00; Start 08/06/16 at 10:30; Stop 08/06/16 at 10:35; Status DC Insulin Aspart (Novolog) 5 units TIDAC SQ Last administered on 08/08/16 09:58 ; Start 08/06/16 at 11:30 Donepezil HCl (Aricept) 10 mg HS PO Last administered on 08/07/16 21:00; Start 08/07/16 at 21:00 Insulin Detemir (Levemir) 40 units QHS SQ ; Start 08/08/16 at 21:00 Insulin Detemir (Levemir) 6 units 1X ONCE SQ Last administered on 08/08/16 09 :57; Start 08/08/16 at 08:15; Stop 08/08/16 at 08:16; Status DC Active Scripts Active Novolog Flexpen (Insulin Aspart) 100 Unit/1 Ml Insuln.pen 0 Units SQ TIDWMEALS 30 Days Reported Cephalexin 500 Mg Capsule 1 Cap PO TID Spironolactone 25 Mg Tablet 12.5 Mg PO DAILY Proventil Hfa Inhaler (Albuterol Sulfate) 6.7 Gm Hfa.aer.ad 1 Puff IH PRN Q4HRS PRN Symbicort 160-4.5 Mcg Inhaler (Budesonide/Formoterol Fumarate) 10.2 Gm Hfa.aer.ad 1 Puff IH BID Potassium Chloride 10 Meq Tablet.er 10 Meq PO DAILY Lantus Solostar (Insulin Glargine,Hum.rec.anlog) 100 Unit/1 Ml Insuln.pen 28 Unit SQ QHS Hydrochlorothiazide Tablet (Hydrochlorothiazide) 25 Mg Tablet 25 Mg PO DAILY Gabapentin 100 Mg Capsule 100 Mg PO TID Carvedilol 12.5 Mg Tablet 12.5 Mg PO BIDWMEALS Atorvastatin Calcium 40 Mg Tablet 40 Mg PO HS Aspirin Ec (Aspirin) 81 Mg Tablet.dr 81 Mg PO Amlodipine Besylate 10 Mg Tablet 10 Mg PO DAILY Donepezil Hcl 10 Mg Tablet 10 Mg PO HS Losartan Potassium 100 Mg Tablet 100 Mg PO DAILY Vitals/I & O Vital Sign - Last 24 Hours 08/07/16 08/07/16 08/07/16 08/07/16 12:14 13:31 15:00 15:42 Temp 98.2 98.2 Pulse 65 Resp 16 B/P 139/56 Pulse Ox 97 95 97 O2 Delivery Room Air Room Air Room Air Room Air 08/07/16 08/07/16 08/07/16 08/07/16 17:07 18:11 19:30 20:00 Temp 98.4 98.4 Pulse 65 60 Resp 18 B/P 139/56 137/59 Pulse Ox 94 O2 Delivery Room Air Room Air Room Air 08/07/16 08/07/16 08/08/16 08/08/16 20:08 23:01 03:23 07:00 Temp 98.2 98.1 98.0 98.2 98.1 98.0 Pulse 64 66 72 Resp 18 18 18 B/P 140/80 155/69 165/75 Pulse Ox 96 95 92 O2 Delivery Room Air Room Air Room Air Room Air 08/08/16 08/08/16 08/08/16 08/08/16 07:56 08:59 09:47 09:48 Pulse 72 72 B/P 165/75 165/75 Pulse Ox 95 O2 Delivery Room Air Room Air 08/08/16 08/08/16 08/08/16 09:48 09:54 11:19 Pulse 72 B/P 165/75 O2 Delivery Room Air Room Air Intake and Output 08/07/16 08/07/16 08/08/16 15:00 23:00 07:00 Intake Total 240 ml Balance 240 ml YAN DAVIS APRN Aug 08, 2016 11:48
[2016-08-08 15:00] VITALS: BP 145/72
[2016-08-08 19:00] VITALS: BP 150/76
[2016-08-08] MEDS: ATORVASTATIN CALCIUM 40 MG TABLET. PO SCH (20:41)
[2016-08-08] MEDS: DONEPEZIL HCL 10 MG TABLET. PO SCH (20:42)
[2016-08-08] MEDS: INSULIN DETEMIR 300 UNITS/3 ML INSULN.PEN. SQ SCH (20:54)
[2016-08-08 23:00] VITALS: BP 171/80
[2016-08-09 03:00] VITALS: BP 170/92
[2016-08-09 07:00] VITALS: BP 154/66
[2016-08-09] MEDS: ALBUTEROL SULFATE 2.5 MG/3 ML NEBU. NEB SCH ×4 (07:43→19:08)
[2016-08-09] MEDS: BUDESONIDE 0.5 MG/2 ML NEBU. NEB SCH ×2 (07:43→19:08)
--- NOTE | 2016-08-09 07:55 | PDOC ---
Provider Note Provider Note lucose better w/ more levemir- vss, no new sxs- plans to go to [facility] ANDREY GASCA MD Aug 09, 2016 07:55
[2016-08-09] MEDS: ENOXAPARIN 40 MG/0.4 ML SYRINGE. SQ SCH (09:40)
[2016-08-09] MEDS: ASPIRIN ENTERIC COATED 81 MG TABLET.DR. PO SCH (09:41)
[2016-08-09] MEDS: AMLODIPINE BESYLATE 10 MG TABLET PO SCH (09:41)
[2016-08-09] MEDS: GABAPENTIN 100 MG CAPSULE. PO SCH ×3 (09:41→21:05)
[2016-08-09] MEDS: HYDROCODONE/APAP 5/325MG TABLET. PO PRN ×2 (09:41→18:26)
[2016-08-09] MEDS: HYDROCHLOROTHIAZIDE 25 MG TABLET PO SCH (09:41)
[2016-08-09] MEDS: LOSARTAN POTASSIUM 50 MG TABLET. PO SCH (09:42)
[2016-08-09] MEDS: CARVEDILOL 12.5 MG TABLET PO SCH ×2 (09:42→18:26)
[2016-08-09] MEDS: INSULIN ASPART 300 UNITS/3 ML INSULN.PEN SQ SCH ×3 (09:51→18:32)
[2016-08-09 11:00] VITALS: BP 146/66
--- NOTE | 2016-08-09 11:18 | DISCH ---
DISCHARGE FINAL DIAGNOSIS Problems Medical Problems: (1) Non-pressure ulcer of right lower extremity, limited to breakdown of skin Status: Acute (2) Peripheral arterial occlusive disease Status: Acute CONDITION ON DISCHARGE: Stable SNF STAY <30 DAYS: Yes HOME HEALTH: No PT. HAS FUNCTIONAL LIMITATIONS: Yes FACE TO FACE ENCOUNTER: Yes HOSPICE: No HOSPICE EVAL & TREAT: No ADMIT TO LTAC: No POST DISCHARGE ORDERS ACTIVITY ORDERS: No restrictions WEIGHT BEARING STATUS: No restrictions BATHING ORDERS: Shower-keep dressing dry (May get incision wet. Wash with a CLEAN washcloth, soap and water and pat dry. No dressing needed to incision.), No Tub Bath until see Dr. HURLEY AFTER DISCHARGE: ADA WOUND/INCISION CARE: Keep wound elevated (Right leg while in chair and bed. Do not allow patient to keep her right leg dependent for prolonged periods of time to help reduce swelling.), Change dressing (To right miner daily!!) CHECKS AFTER DISCHARGE CHECKS AFTER DISCHARGE: Check blood sugar, ac/hs FOLLOW-UP PHYSICIAN FOLLOW-UP: Dr. Rolando Wood on TREATMENT/EQUIPMENT ORDERS ADAPTIVE EQUIPMENT NEEDED: Travis Lazo LINDA L APRN Aug 09, 2016 11:18
--- NOTE | 2016-08-09 11:28 | PDOC ---
PROGRESS NOTES Subjective Subjective "I feel better today. I am glad I'm going to a facility instead of home." Objective Objective Vascular Surgery - POD#5 Right popliteal to peroneal artery bypass graft with ipsilateral saphenous vein, right leg debridement(excisional) O: Sitting in chair watching TV. RLE elevated on chair and pillow. CV: RRR Pulm: Posteriorly with scattered courseness and exp. wheezes. Non-productive cough. Abd: Soft. +bowel sounds. RLE: Incision intact and no drainage. Right miner ulcer with clean tissue bed. 2-3+ edema to lower leg and foot. Doppled bypass graft and DP pulse. Foot warm. Assessment/Plan: 1. PAD - POD#5 revascularization to RLE for chronic non-healing wound. Ready for discharge to SNF today. 2. CRI - renal function back to baseline. Will give Lasix x1 dose today for course resp status and wheezing. Already on aerosol tx's. 3. HTN - elevated BP's. Will restart home meds as Aldactone held due to laboratory data after surgery. 4. DM - closely monitored by PCP. Appreciate management and ask for discharge diabetic mgmt to be coordinated. Vital Signs Date Time Temp Pulse Resp B/P Pulse Ox O2 Delivery O2 Flow Rate FiO2 3 09:42 77 154/66 3 09:41 Room Air 08/09/16 07:00 98.4 14 95 98.4 08/07/16 08:00 2.0 Intake and Output 3 07:00 Intake Total 250 ml Balance 250 ml Intake Oral 250 ml # Voids 4 # Bowel Movements 1 Assessment Assessment Problems Medical Problems: (1) Non-pressure ulcer of right lower extremity, limited to breakdown of skin Status: Acute (2) Peripheral arterial occlusive disease Status: Acute Comment Review of Relevant I have reviewed the following items joel (where applicable) has been applied. Labs Laboratory Tests Test 08/07/16 16:20 08/07/16 21:10 08/08/16 07:42 08/08/16 10:14 Glucose (Fingerstick) 216mg/dL (70-99) 239mg/dL (70-99) 150mg/dL (70-99) White Blood Count 9.8x10^3/uL (4.0-11.0) Red Blood Count 3.88x10^6/uL (3.50-5.40) Hemoglobin 11.6g/dL (12.0-15.5) Hematocrit 35.3% (36.0-47.0) Mean Corpuscular Volume 91fL (79-100) Mean Corpuscular Hemoglobin 30pg (25-35) Mean Corpuscular Hemoglobin Concent 33g/dL (31-37) Red Cell Distribution Width 13.2% (11.5-14.5) Platelet Count 247x10^3/uL (140-400) Sodium Level 142mmol/L (136-145) Potassium Level 4.1mmol/L (3.5-5.1) Chloride Level 104mmol/L (98-107) Carbon Dioxide Level 32mmol/L (21-32) Anion Gap 6 (6-14) Blood Urea Nitrogen 26mg/dL (7-20) Creatinine 1.3mg/dL (0.6-1.0) Estimated GFR (Cockcroft-Gault) 48.7 Glucose Level 229mg/dL (70-99) Calcium Level 9.7mg/dL (8.5-10.1) Magnesium Level 1.8mg/dL (1.8-2.4) Test 08/08/16 11:34 08/08/16 17:00 08/08/16 20:27 08/09/16 07:43 Glucose (Fingerstick) 191mg/dL (70-99) 163mg/dL (70-99) 201mg/dL (70-99) 135mg/dL (70-99) Laboratory Tests Test 08/08/16 11:34 08/08/16 17:00 08/08/16 20:27 08/09/16 07:43 Glucose (Fingerstick) 191mg/dL (70-99) 163mg/dL (70-99) 201mg/dL (70-99) 135mg/dL (70-99) Medications Current Medications Heparin Sodium (Porcine) 5000 unit/Sodium Chloride 505 ml @ 505 mls/hr 1X PERIOP ONCE IRR Last administered on 08/04/16t 14:29; Start 08/04/16 at 08:00 ; Stop 08/04/16 at 08:59; Status DC Cefazolin Sodium/ Sodium Chloride (Ancef/Iv Sodium Chloride 0.9% 500ml Bag) 500 ml @ 500 mls/hr 1X PERIOP ONCE IRR Last administered on 08/04/16 14:29; Start 08/04/16 at 08:00; Stop 08/04/16 at 08:59; Status DC Fentanyl Citrate (Fentanyl 2ml Vial) 25 mcg PRN Q5MIN PRN IV MILD PAIN; Start 08/04/16 at 07:00; Stop 08/05/16 at 06:59; Status DC Fentanyl Citrate (Fentanyl 2ml Vial) 50 mcg PRN Q5MIN PRN IV MODERATE PAIN Last administered on 08/04/16 19:56; Start 08/04/16 at 07:00; Stop 08/05/16 at 06:59; Status DC Morphine Sulfate 1 mg 1 mg PRN Q10MIN PRN IV SEVERE PAIN; Start 08/04/16 at 07: 00; Stop 08/05/16 at 06:59; Status DC Lactated Ringer's (Iv Lactated Ringers) 1,000 ml @ 30 mls/hr Q24H IV Last administered on 08/04/16 12:16; Start 08/04/16 at 07:00; Stop 08/04/16 at 18:59 ; Status DC Lidocaine HCl 2 ml 1X PRN PRN ID IV START; Start 08/04/16 at 07:00; Stop at 06:59; Status DC Hydromorphone HCl (Dilaudid) 0.5 mg PRN Q10MIN PRN IV SEVERE PAIN, Second choice Last administered on 08/05/16 02:11; Start 08/04/16 at 07:00; Stop 08/05 at 06:59; Status DC Prochlorperazine Edisylate (Compazine) 5 mg PACU PRN PRN IV NAUSEA; Start 08/04 at 07:00; Stop 08/05/16 at 06:59; Status DC Bupivacaine HCl (Marcaine 0.25%) 50 ml STK-MED ONCE .ROUTE ; Start 08/04/16 at 06:49; Stop 08/04/16 at 06:50; Status DC Papaverine HCl 60 mg STK-MED ONCE .ROUTE ; Start 08/04/16 at 06:49; Stop at 06:50; Status DC Iohexol (Omnipaque 300 Mg/ml) 100 ml STK-MED ONCE .ROUTE ; Start 08/04/16 at 06: 50; Stop 08/04/16 at 06:51; Status DC Thrombin 20,000 unit STK-MED ONCE TP ; Start 08/04/16 at 06:50; Stop 08/04/16 at 06:51; Status DC Gelatin (Gelfoam Size 100) 1 each STK-MED ONCE .ROUTE ; Start 08/04/16 at 06:50 ; Stop 08/04/16 at 06:51; Status DC Cellulose 1 each STK-MED ONCE .ROUTE Last administered on 08/04/16 14:29; Start 08/04/16 at 10:53; Stop 08/04/16 at 10:54; Status DC Cellulose 1 each 1 each STK-MED ONCE .ROUTE Last administered on 08/04/16 14: 29; Start 08/04/16 at 10:53; Stop 08/04/16 at 10:54; Status DC Cefazolin Sodium/ Dextrose 50 ml @ 100 mls/hr 1X ONCE IV Last administered on 08/04/16 13:57; Start 08/04/16 at 11:15; Stop 08/04/16 at 11:44; Status DC Lidocaine HCl 48 ml/Sodium Bicarbonate 12 meq/Miscellaneous 60 ml @ 60 mls/hr 1X PERIOP ONCE ID ; Start 08/04/16 at 11:06; Stop 08/04/16 at 12:05; Status DC Lidocaine HCl/ Sodium Bicarbonate/ Miscellaneous 120 ml @ 60 mls/hr 1X PERIOP ONCE ID ; Start 08/04/16 at 11:15; Stop 08/04/16 at 12:14; Status DC Aspirin (Ecotrin) 325 mg DAILYWBKFT PO Last administered on 08/05/16 08:36; Start 08/05/16 at 08:00; Stop 08/05/16 at 17:23; Status DC Oxycodone HCl (Roxicodone) 5 mg PRN Q3HRS PRN PO MODERATE PAIN Last administered on 08/06/16 18:57; Start 08/04/16 at 14:00 Al Hydroxide/Mg Hydroxide (Mylanta Plus Xs) 30 ml PRN Q3HRS PRN PO HEARTBURN / GAS; Start 08/04/16 at 14:00 Calcium Carbonate/ Glycine (Tums) 500 mg PRN Q3HRS PRN PO INDIGESTION; Start at 14:00 Diphenhydramine HCl (Benadryl) 25 mg PRN Q6HRS PRN PO ITCHING; Start 08/04/16 at 14:00 Diphenhydramine HCl (Benadryl) 25 mg PRN Q6HRS PRN IV ITCHING; Start 08/04/16 at 14:00 Zolpidem Tartrate (Ambien) 5 mg PRN QHS PRN PO INSOMNIA; Start 08/04/16 at 14: 00 Naloxone HCl (Narcan) 0.1 mg PRN Q2MIN PRN IV ADMIN; Start 08/04/16 at 14:00 Enoxaparin Sodium (Lovenox 40mg Syringe) 40 mg Q24H SQ Last administered on 09:40; Start 08/05/16 at 08:00 Sodium Chloride 3 ml 3 ml QSHIFT PRN IV AFTER MEDS AND BLOOD DRAWS; Start 08/04 at 14:00 Sodium Chloride (Iv Sodium Chloride 0.9% 1000ml Bag) 1,000 ml @ 100 mls/hr Q10H IV Last administered on 08/04/16 23:54; Start 08/04/16 at 13:54; Stop at 17:32; Status DC Acetaminophen/ Hydrocodone Bitart (Lortab 5/325) 1 tab PRN Q4HRS PRN PO MILD PAIN Last administered on 08/09/16 09:41; Start 08/04/16 at 14:00 Morphine Sulfate 1 mg PRN Q1HR PRN IV PAIN; Start 08/04/16 at 14:00; Stop 08/08 at 11:36; Status DC Ondansetron HCl 4 mg 4 mg PRN Q6HRS PRN IV NAUESA, 1ST CHOICE; Start 08/04/16 at 14:00 Cefazolin Sodium/ Dextrose (Ancef 2gm Premix) 50 ml @ 100 mls/hr Q6H IV Last administered on 08/05/16 08:36; Start 08/04/16 at 20:00; Stop 08/05/16 at 08:29 ; Status DC Throat Lozenges (Cepacol Sore Throat Lozenge) 1 nohelia PRN Q2HRS PRN PO SORE THROAT Last administered on 08/05/16t 13:39; Start 08/04/16 at 23:00 Dexamethasone Sodium Phosphate (Decadron) 20 mg STK-MED ONCE .ROUTE ; Start at 12:56; Stop 08/05/16 at 11:55; Status DC Ondansetron HCl 4 mg 4 mg STK-MED ONCE .ROUTE ; Start 08/04/16 at 12:56; Stop at 11:55; Status DC Propofol (Diprivan) 20 ml @ As Directed STK-MED ONCE IV ; Start 08/04/16 at 12: 56; Stop 08/05/16 at 11:55; Status DC Lidocaine HCl 100 mg STK-MED ONCE .ROUTE ; Start 08/04/16 at 12:56; Stop at 11:55; Status DC Rocuronium Buckley (Zemuron) 50 mg STK-MED ONCE .ROUTE ; Start 08/04/16 at 12:56 ; Stop 08/05/16 at 11:55; Status DC Fentanyl Citrate (Fentanyl 2ml Vial) 100 mcg STK-MED ONCE .ROUTE ; Start at 12:56; Stop 08/05/16 at 11:55; Status DC Midazolam HCl (Versed) 2 mg STK-MED ONCE .ROUTE ; Start 08/04/16 at 14:02; Stop 08/05/16 at 11:55; Status DC Fentanyl Citrate (Fentanyl 2ml Vial) 100 mcg STK-MED ONCE .ROUTE ; Start at 14:11; Stop 08/05/16 at 11:55; Status DC Heparin Sodium (Porcine) 10,000 unit STK-MED ONCE .ROUTE ; Start 08/04/16 at 14: 27; Stop 08/05/16 at 11:55; Status DC Sevoflurane (Ultane) 90 ml STK-MED ONCE IH ; Start 08/04/16 at 17:07; Stop 08/05 at 11:56; Status DC Labetalol HCl (Normodyne) 20 mg STK-MED ONCE .ROUTE ; Start 08/04/16 at 17:23; Stop 08/05/16 at 11:56; Status DC Fentanyl Citrate (Fentanyl 2ml Vial) 100 mcg STK-MED ONCE .ROUTE ; Start at 17:26; Stop 08/05/16 at 11:56; Status DC Hydralazine HCl (Apresoline) 20 mg STK-MED ONCE .ROUTE ; Start 08/04/16 at 17:28 ; Stop 08/05/16 at 11:56; Status DC Amlodipine Besylate (Norvasc) 10 mg DAILY PO Last administered on 08/09/16 09: 41; Start 08/05/16 at 18:00 Aspirin (Ecotrin) 81 mg DAILY08 PO ; Start 08/05/16 at 18:00; Stop 08/05/16 at 18:00; Status DC Atorvastatin Calcium (Lipitor) 40 mg HS PO Last administered on 08/08/16 20:41 ; Start 08/05/16 at 21:00 Carvedilol (Coreg) 12.5 mg BIDWMEALS PO Last administered on 08/09/16 09:42; Start 08/06/16 at 08:00 Donepezil HCl (Aricept) 10 mg HS PO Last administered on 08/06/16 21:15; Start 08/05/16 at 21:00; Stop 08/07/16 at 13:13; Status DC Gabapentin (Neurontin) 100 mg TID PO Last administered on 08/09/16 09:41; Start 08/05/16 at 21:00 Hydrochlorothiazide (Hydrodiuril) 25 mg DAILY PO Last administered on 09:41; Start 08/05/16 at 18:00 Spironolactone (Aldactone) 12.5 mg DAILY PO Last administered on 08/06/16 09: 13; Start 08/05/16 at 18:00; Stop 08/06/16 at 10:22; Status DC Albuterol Sulfate (Ventolin Neb Soln) 2.5 mg PRN Q4HRS PRN NEB SOA; Start 08/05 at 17:45 Budesonide (Pulmicort) 0.5 mg RTBID NEB Last administered on 08/09/16 07:43; Start 08/05/16 at 20:00 Insulin Detemir (Levemir) 28 units QHS SQ Last administered on 08/05/16 17:53 ; Start 08/05/16 at 17:30; Stop 08/06/16 at 10:31; Status DC Losartan Potassium (Cozaar) 100 mg DAILY PO Last administered on 08/09/16 09: 42; Start 08/05/16 at 18:00 Potassium Chloride (Klor-Con) 10 meq DAILYWBKFT PO Last administered on 07:34; Start 08/06/16 at 08:00; Stop 08/06/16 at 10:22; Status DC Insulin Aspart (Novolog) 0-7 UNITS TIDWMEALS SQ Last administered on 08/06/16 07:36; Start 08/05/16 at 17:30; Stop 08/06/16 at 10:31; Status DC Dextrose 12.5 gm PRN Q15MIN PRN IV SEE COMMENTS; Start 08/05/16 at 17:30 Aspirin (Ecotrin) 81 mg DAILY08 PO Last administered on 08/09/16 09:41; Start 08/06/16 at 08:00 Albuterol Sulfate 2.5 mg 2.5 mg RTQID NEB Last administered on 08/09/16 07:43 ; Start 08/05/16 at 20:00 Magnesium Sulfate/ Sodium Chloride (Iv Normal Saline 150ml) 156 ml @ 35.333 mls / hr 1X ONCE IV Last administered on 08/05/16 20:15; Start 08/05/16 at 19:30 ; Stop 08/05/16 at 23:54; Status DC Insulin Detemir (Levemir) 34 units QHS SQ Last administered on 08/07/16 21:21 ; Start 08/06/16 at 21:00; Stop 08/08/16 at 08:07; Status DC Insulin Detemir (Levemir) 6 units 1X ONCE SQ Last administered on 08/06/16 12 :00; Start 08/06/16 at 10:30; Stop 08/06/16 at 10:35; Status DC Insulin Aspart (Novolog) 5 units TIDAC SQ Last administered on 08/09/16 09:51 ; Start 08/06/16 at 11:30 Donepezil HCl (Aricept) 10 mg HS PO Last administered on 08/08/16 20:42; Start 08/07/16 at 21:00 Insulin Detemir (Levemir) 40 units QHS SQ Last administered on 08/08/16 20:54 ; Start 08/08/16 at 21:00 Insulin Detemir (Levemir) 6 units 1X ONCE SQ Last administered on 08/08/16 09 :57; Start 08/08/16 at 08:15; Stop 08/08/16 at 08:16; Status DC Active Scripts Active Novolog Flexpen (Insulin Aspart) 100 Unit/1 Ml Insuln.pen 0 Units SQ TIDWMEALS 30 Days Reported Cephalexin 500 Mg Capsule 1 Cap PO TID Spironolactone 25 Mg Tablet 12.5 Mg PO DAILY Proventil Hfa Inhaler (Albuterol Sulfate) 6.7 Gm Hfa.aer.ad 1 Puff IH PRN Q4HRS PRN Symbicort 160-4.5 Mcg Inhaler (Budesonide/Formoterol Fumarate) 10.2 Gm Hfa.aer.ad 1 Puff IH BID Potassium Chloride 10 Meq Tablet.er 10 Meq PO DAILY Lantus Solostar (Insulin Glargine,Hum.rec.anlog) 100 Unit/1 Ml Insuln.pen 28 Unit SQ QHS Hydrochlorothiazide Tablet (Hydrochlorothiazide) 25 Mg Tablet 25 Mg PO DAILY Gabapentin 100 Mg Capsule 100 Mg PO TID Carvedilol 12.5 Mg Tablet 12.5 Mg PO BIDWMEALS Atorvastatin Calcium 40 Mg Tablet 40 Mg PO HS Aspirin Ec (Aspirin) 81 Mg Tablet.dr 81 Mg PO Amlodipine Besylate 10 Mg Tablet 10 Mg PO DAILY Donepezil Hcl 10 Mg Tablet 10 Mg PO HS Losartan Potassium 100 Mg Tablet 100 Mg PO DAILY Vitals/I & O Vital Sign - Last 24 Hours 08/08/16 08/08/16 08/08/16 08/08/16 11:36 15:00 17:40 19:00 Temp 98.6 98.6 Pulse 76 76 72 Resp 18 18 B/P 145/72 145/72 150/76 Pulse Ox 95 96 95 O2 Delivery Room Air Room Air Room Air 08/08/16 08/08/16 08/08/16 08/08/16 19:36 20:00 20:48 21:45 Resp 16 16 Pulse Ox 100 O2 Delivery Room Air Room Air Room Air Room Air 08/08/16 08/09/16 08/09/16 08/09/16 23:00 03:00 07:00 07:44 Temp 98.0 98.2 98.4 98.0 98.2 98.4 Pulse 67 73 77 Resp 18 18 14 B/P 171/80 170/92 154/66 Pulse Ox 92 99 95 O2 Delivery Room Air Room Air Room Air Room Air 08/09/16 08/09/16 08/09/16 08/09/16 08:04 09:41 09:41 09:42 Pulse 77 77 B/P 154/66 154/66 O2 Delivery Room Air Room Air 08/09/16 09:42 Pulse 77 B/P 154/66 Intake and Output 08/08/16 08/08/16 08/09/16 15:00 23:00 07:00 Intake Total 250 ml Balance 250 ml YAN DAVIS APRN Aug 09, 2016 11:28
[2016-08-09] MEDS ORDERED: FUROSEMIDE 40 MG TABLET PO ONE (11:30)
[2016-08-09] MEDS ORDERED: HYDR-2666 PO (11:59)
[2016-08-09 15:00] VITALS: BP 156/71
[2016-08-09 19:15] VITALS: BP 149/63
[2016-08-09] MEDS: DONEPEZIL HCL 10 MG TABLET. PO SCH (21:00)
[2016-08-09] MEDS: ATORVASTATIN CALCIUM 40 MG TABLET. PO SCH (21:05)
[2016-08-09] MEDS: INSULIN DETEMIR 300 UNITS/3 ML INSULN.PEN. SQ SCH (21:13)
[2016-08-09 23:29] VITALS: BP 145/68
[2016-08-10 03:29] VITALS: BP 152/66
[2016-08-10] MEDS ORDERED: ASPIRIN ENTERIC COATED 81 MG TABLET.DR. PO SCH (05:04)
[2016-08-10] MEDS ORDERED: ENOXAPARIN 40 MG/0.4 ML SYRINGE. SQ SCH ×2 (05:05→09:00)
[2016-08-10] MEDS ORDERED: ONDANSETRON PF 4 MG/2 ML VIAL. IV PRN (05:06)
[2016-08-10 07:00] VITALS: BP 147/70
[2016-08-10] MEDS: ALBUTEROL SULFATE 2.5 MG/3 ML NEBU. NEB SCH ×2 (07:20→11:17)
[2016-08-10] MEDS: BUDESONIDE 0.5 MG/2 ML NEBU. NEB SCH (07:20)
[2016-08-10] MEDS ORDERED: CARVEDILOL 12.5 MG TABLET. PO SCH (08:00)
[2016-08-10] MEDS ORDERED: AMLODIPINE BESYLATE 10 MG TABLET. ONE (08:32)
[2016-08-10] MEDS: GABAPENTIN 100 MG CAPSULE. PO SCH (08:51)
[2016-08-10] MEDS: AMLODIPINE BESYLATE 10 MG TABLET PO SCH (08:52)
[2016-08-10] MEDS: LOSARTAN POTASSIUM 50 MG TABLET. PO SCH (08:52)
[2016-08-10 08:53] VITALS: BP 152/66
[2016-08-10] MEDS: HYDROCHLOROTHIAZIDE 25 MG TABLET PO SCH (08:53)
[2016-08-10] MEDS: INSULIN ASPART 300 UNITS/3 ML INSULN.PEN SQ SCH (09:01)
[2016-08-10] MEDS ORDERED: ATORVASTATIN CALCIUM 40 MG TABLET. PO SCH (21:00)
--- NOTE | 2016-08-17 21:11 | OP ---
DATE OF SURGERY: 08/04/2016 PREOPERATIVE DIAGNOSIS: Ischemic ulceration, right leg. POSTOPERATIVE DIAGNOSIS: Ischemic ulceration, right leg. PROCEDURE PERFORMED: Right popliteal artery to peroneal artery bypass graft with ipsilateral greater saphenous vein, right leg wound debridement. INDICATIONS: This is a 71-year-old female who presents with a painful ischemic ulceration in the distal right leg. Arteriographic evaluation has been performed. She had minimal disease to her popliteal artery. She then had occlusion of all 3 vessels with reconstitution of her peroneal artery. Recommendation was for popliteal-peroneal bypass graft. Additionally, because of this nonhealing chronic right leg wound, recommendation was for right leg wound debridement and wound VAC application. DESCRIPTION OF PROCEDURE: The patient was given general anesthetic, prepped and draped in sterile fashion. Incision was begun below the right knee and extended in a curvilinear fashion to the above-knee position. The saphenous vein was identified. The vein was then extended up into the above-knee position. Popliteal fossa was entered. The popliteal artery was isolated. Deep dissection in the mid-calf was continued until the peroneal artery could be identified. There was adequate saphenous vein for popliteal-peroneal artery bypass graft. The saphenous vein was harvested with 3-0 silk sutures, ligating the vessel proximally adjacent to the vein and small clips securing the distal branches. The vein was harvested and distended with heparinized saline solution. Retrograde valve lysis was performed with a [place] valvulotome. The patient received 5000 units of intravenous heparin. The proximal popliteal artery was occluded with a Satinsky clamp. Distally, the vessel was occluded with an angled vascular clamp. Longitudinal arteriotomy was made with 11 blade and extended with Brower scissors. The vein was trimmed and spatulated, end-to-side anastomosis was completed with a running suture of 6-0 Prolene. There was excellent pulsatile flow through the vein conduit. The mid-calf peroneal artery was then isolated and doubly surrounded with vessel loops. Vessel loops were secured. Longitudinal arteriotomy was made with 11 blade and extended with Brower scissors. The vein was trimmed and spatulated, end-to-side anastomosis to the peroneal artery was completed with a running suture of 7-0 Prolene. Prior to completion of anastomosis, the distal vessel loops were removed. A 1.5 mm dilator was passed through the distal anastomosis and passed the area where the vessel loops had secured the vessel. This was then removed. Suture line was completed and blood flow was instituted into the right leg. Suture line was hemostatic. Excellent Doppler flow signal was present in the distal peroneal artery, which nearly completely obliterated with proximal vein bypass graft obstruction. Wound was closed in layers with 2-0 Vicryl in deep subcutaneous tissues and bertha approximated the wound margin. Attention was then directed to the right leg where the area of ulceration was sharply excised through fresh skin and including the deep tissues. Sterile dressings were applied. The patient moved to recovery in satisfactory stable condition. We will initiate wound VAC in a.m. The patient did tolerate the procedure well. 100 mL blood loss. No blood replacement required. DEISI CLEVELAND MD DR: SANAZ/shane JOB#: [id number] / [id number]
== END 2016-08-10 11:45 | DRG 253 ==
LOC: SURHIP 11:06 → CVICU 18:51 → 4 NORTH 08-06 13:27
PROC: 0JBN0ZZ Excision of Right Lower Leg Subcutaneous Tissue and Fascia, Open Approach (ICD-10-PCS; 2016-08-04)
PROC: 041 Lower Arteries, Bypass (ICD-10-PCS; principal; 2016-08-04 12:30)
DX: E11.51 Type 2 diabetes mellitus with diabetic peripheral angiopathy without gangrene (principal); L97.911 Non-pressure chronic ulcer of unspecified part of right lower leg limited to breakdown of skin; E11.22 Type 2 diabetes mellitus with diabetic chronic kidney disease; E11.622 Type 2 diabetes mellitus with other skin ulcer; E87.5 Hyperkalemia; I12.9 Hypertensive chronic kidney disease with stage 1 through stage 4 chronic kidney disease, or unspecified chronic kidney disease; N18.3 Chronic kidney disease, stage 3 (moderate); Z79.4 Long term (current) use of insulin; Z90.710 Acquired absence of both cervix and uterus; Z79.82 Long term (current) use of aspirin
CPT/HCPCS: 36415; 73560; 80048; 82947; 83735; 85007; 85027; 85610; 85730; 94250; 94640; 94760; J0360; J0690; J1100; J1170; J1650; J1815; J2250; J2405; J2440; J2704; J3010; J3475; J3490; J7030; J7040; J7120; Q9967; 97110; 97116; 97530

== ENCOUNTER → 2016-08-15 | Outpatient (CLI) | payer OTHER, MEDICAID ==
[2016-08-10 08:53] VITALS: BP 152/66
[~2016-08-15] MED LIST changes: -BUPIVACAINE 0.25% 50 ML VIAL. ONE; -CEFAZOLIN SODIUM 1 GM in IV NORMAL SALINE 500ML BAG 500 ML IRR ONE; +CEPH500C PO; -FENTANYL PF 100 MCG/2 ML VIAL. IV PRN; -GELATIN SPONGE SIZE 100. ONE; -HEPARIN S0DIUM 5,000 UNIT in IV NORMAL SALINE 500ML BAG 500 ML IRR ONE; +HYDR-2666 PO; -IOHEXOL 300 MG/ML 100ML VIAL. ONE; -IV RINGERS,LACTATED 1000ML 1,000 ML IV SCH; -LIDOCAINE 1% 1 ML SYRINGE. ID PRN; -LIDOCAINE 1% PF 48 ML, SODIUM BICARBONATE VIAL 12 MEQ in TOTAL VOLUME SYRINGE 60 ML ID ONE; -MORPHINE SULFATE 2 MG/ML DISP.SYRIN. IV PRN; -PAPAVERINE 60 MG/2 ML VIAL FOR OR ONLY. ONE; -PROCHLORPERAZINE 10 MG/2 ML VIAL. IV PRN; -SURGICEL FIBRILLAR 1X2 EACH. ONE; -THROMBIN 20,000 UNIT SPRAY.SYRN KIT TP ONE
== END | disposition home or self-care (01) ==
LOC: PMGWOUND 09:04
PROVIDERS: ATTEND Emergency Medicine Undersea and Hyperbaric Medicine
DX: I70.232 Atherosclerosis of native arteries of right leg with ulceration of calf (principal); L97.813 Non-pressure chronic ulcer of other part of right lower leg with necrosis of muscle; F03.90 Unspecified dementia, unspecified severity, without behavioral disturbance, psychotic disturbance, mood disturbance, and anxiety; E11.40 Type 2 diabetes mellitus with diabetic neuropathy, unspecified; I10 Essential (primary) hypertension; J42 Unspecified chronic bronchitis; M19.90 Unspecified osteoarthritis, unspecified site; E11.51 Type 2 diabetes mellitus with diabetic peripheral angiopathy without gangrene; Z86.73 Personal history of transient ischemic attack (TIA), and cerebral infarction without residual deficits
CPT/HCPCS: 99213

== ENCOUNTER → 2016-08-22 | Outpatient (CLI) | payer OTHER, MEDICAID ==
[2016-08-10 08:53] VITALS: BP 152/66
== END | disposition home or self-care (01) ==
LOC: PMGWOUND 09:14
PROVIDERS: ATTEND Emergency Medicine Undersea and Hyperbaric Medicine
DX: I70.232 Atherosclerosis of native arteries of right leg with ulceration of calf (principal); E11.622 Type 2 diabetes mellitus with other skin ulcer; L97.811 Non-pressure chronic ulcer of other part of right lower leg limited to breakdown of skin; I73.9 Peripheral vascular disease, unspecified; E11.40 Type 2 diabetes mellitus with diabetic neuropathy, unspecified; I10 Essential (primary) hypertension; M19.90 Unspecified osteoarthritis, unspecified site; E87.6 Hypokalemia; E11.51 Type 2 diabetes mellitus with diabetic peripheral angiopathy without gangrene; Z86.73 Personal history of transient ischemic attack (TIA), and cerebral infarction without residual deficits
CPT/HCPCS: 97597

== ENCOUNTER 2016-08-26 10:43 | Emergency (ER) | payer OTHER, MEDICAID ==
[~2016-08-26] VITALS: Ht 175.3 cm; Wt 96.2 kg
[2016-08-26 10:43] VITALS: BP 146/71
--- NOTE | 2016-08-26 11:37 | PHYS DOC ---
Past Medical History Past Medical History: Dementia, Diabetes-Type I, Hypertension, TIA, Other Additional Past Medical Histor: OSTEOARTHRITIS Past Surgical History: Other Additional Past Surgical Histo: NECK SURGERY, FEM POP Alcohol Use: None Drug Use: None Adult General Chief Complaint Chief Complaint: LOWER EXT PAIN HPI HPI Patient is a 71 year old female sent to the ED from the [facility] with the complaint of right leg swelling, concern for blood clot. Patient about 2-1/ 2 weeks ago had a femoropopliteal bypass here [place]. She was sent to [facility] for rehabilitation. The patient has no complaints. She denies history of blood clot. Nursing staff at [facility] were concerned about the possibility of a "blood clot" in her right leg and sent her in for evaluation. Vascular surgeon Dr. Wood Review of Systems Review of Systems Constitutional: Denies fever or chills [] Eyes: Denies change in visual acuity, redness, or eye pain [] HENT: Denies nasal congestion or sore throat [] Respiratory: Denies cough or shortness of breath [] Cardiovascular: Denies chest pain GI: Denies abdominal pain, nausea, vomiting, bloody stools or diarrhea [] : Denies dysuria or hematuria [] Musculoskeletal: Denies back pain or joint pain [] Integument: Denies rash or skin lesions [] Neurologic: Denies headache, focal weakness or sensory changes [] Allergies Allergies Allergies Coded Allergies Type Severity Reaction Last Updated Verified No Known Drug Allergies 08/04/16 No Physical Exam Physical Exam Constitutional: Well developed, well nourished, no acute distress, non-toxic appearance. Alert, mentating normally. HENT: Normocephalic, atraumatic, bilateral external ears normal, nose normal. [ ] Eyes: conjunctiva normal, no discharge. [] Neck: Normal range of motion, no stridor. [] Skin: Warm, dry, no erythema, no rash. [] Extremities: Right leg has a scar from recent femoropopliteal bypass which is stapled. The incision looks good, no drainage, no erythema, no dehiscence. An area on the superior aspect and another area on the inferior aspect of the incision of mild swelling, ecchymosis, mild warmth, the appearance consistent with hematoma or seroma. It does not appear to be fluctuant, no evidence of cellulitis. The calf is very soft and nontender. There is no swelling of the ankle or foot. There is no clinical indication of DVT. Neurologic: Alert and oriented X 3, normal motor function, normal sensory function, no focal deficits noted. [] Current Patient Data Vital Signs Vital Signs Date Time Temp Pulse Resp B/P Pulse Ox O2 Delivery O2 Flow Rate FiO2 08/26/16 10:43 98.1 74 18 146/71 96 Room Air 98.1 EKG EKG [] Radiology/Procedures Radiology/Procedures [] Course & Med Decision Making Course & Med Decision Making Pertinent Labs and Imaging studies reviewed. (See chart for details) 71-year-old female recently status post femoropopliteal bypass presents from the rehabilitation facility with the concern for possible DVT. I evaluated the patient and she does not have any clinical indication of DVT. I discussed the case with Dr. Crum, on-call for vascular surgery, covering for Dr. Wood. He agrees with my plan to send the patient back to her rehabilitation facility. Discussed with the patient and her sister who are here and they're comfortable with plan for discharge. She can try some heat to the area, advised against ice or any kind of moisture. Have a follow-up appointment scheduled with Dr. Wood, vascular surgeon. Sunday. [] Dragon Disclaimer Dragon Disclaimer This electronic medical record was generated, in whole or in part, using a voice recognition dictation system. Departure Departure Impression: Primary Impression: Postoperative hematoma Disposition: 03 TRANSFER SNF Condition: STABLE Referrals: ДМИТРИЙ RILEY MD (PCP) Patient Instructions: Hematoma, [id number] Additional Instructions: As we discussed, there is no sign of blood clot in the vein of the leg. Evaluation negative for DVT. The areas of swelling are caused by blood and fluid under the skin, which is common after surgery. It will take a few weeks to go away completely. Elevate leg when seated or laying down. No change in rehabilitation or therapy. See Dr. Hinojosa in the office as planned on Sunday. MIL SILVERMAN MD Aug 26, 2016 11:37
== END 2016-08-26 13:47 ==
LOC: ER 10:43
DX: M96.841 Postprocedural hematoma of a musculoskeletal structure following other procedure (principal); E10.9 Type 1 diabetes mellitus without complications; F03.90 Unspecified dementia, unspecified severity, without behavioral disturbance, psychotic disturbance, mood disturbance, and anxiety; I10 Essential (primary) hypertension; Z86.73 Personal history of transient ischemic attack (TIA), and cerebral infarction without residual deficits; M19.90 Unspecified osteoarthritis, unspecified site; Y83.8 Other surgical procedures as the cause of abnormal reaction of the patient, or of later complication, without mention of misadventure at the time of the procedure
CPT/HCPCS: 99283

== ENCOUNTER → 2016-08-29 | Outpatient (CLI) | payer OTHER, MEDICAID ==
[2016-08-26 10:43] VITALS: BP 146/71
== END | disposition home or self-care (01) ==
LOC: PMGWOUND 09:05
PROVIDERS: ATTEND Emergency Medicine Undersea and Hyperbaric Medicine
DX: I70.232 Atherosclerosis of native arteries of right leg with ulceration of calf (principal); E11.622 Type 2 diabetes mellitus with other skin ulcer; L97.813 Non-pressure chronic ulcer of other part of right lower leg with necrosis of muscle; E11.51 Type 2 diabetes mellitus with diabetic peripheral angiopathy without gangrene; E11.40 Type 2 diabetes mellitus with diabetic neuropathy, unspecified; I12.9 Hypertensive chronic kidney disease with stage 1 through stage 4 chronic kidney disease, or unspecified chronic kidney disease; E11.22 Type 2 diabetes mellitus with diabetic chronic kidney disease; N18.3 Chronic kidney disease, stage 3 (moderate); F03.90 Unspecified dementia, unspecified severity, without behavioral disturbance, psychotic disturbance, mood disturbance, and anxiety; M19.90 Unspecified osteoarthritis, unspecified site; J42 Unspecified chronic bronchitis; Z86.73 Personal history of transient ischemic attack (TIA), and cerebral infarction without residual deficits
CPT/HCPCS: 11042

== ENCOUNTER → 2016-09-05 | Outpatient (CLI) | payer OTHER, MEDICAID ==
[2016-08-26 10:43] VITALS: BP 146/71
== END | disposition home or self-care (01) ==
LOC: PMGWOUND 09:31
PROVIDERS: ATTEND Emergency Medicine Undersea and Hyperbaric Medicine
DX: I70.232 Atherosclerosis of native arteries of right leg with ulceration of calf (principal); E11.622 Type 2 diabetes mellitus with other skin ulcer; L97.813 Non-pressure chronic ulcer of other part of right lower leg with necrosis of muscle; F03.90 Unspecified dementia, unspecified severity, without behavioral disturbance, psychotic disturbance, mood disturbance, and anxiety; E11.40 Type 2 diabetes mellitus with diabetic neuropathy, unspecified; I10 Essential (primary) hypertension; M19.90 Unspecified osteoarthritis, unspecified site; E11.51 Type 2 diabetes mellitus with diabetic peripheral angiopathy without gangrene; Z86.73 Personal history of transient ischemic attack (TIA), and cerebral infarction without residual deficits
CPT/HCPCS: 97597

== ENCOUNTER → 2016-09-18 | Outpatient (CLI) | payer OTHER, MEDICAID ==
[2016-08-26 10:43] VITALS: BP 146/71
[~2016-09-18] MED LIST changes: -LINA5TAB PO; +LINA5TAB4 PO; -POTA10TA10 PO; +POTA10TA12 PO
== END | disposition home or self-care (01) ==
LOC: PMGWOUND 10:36
PROVIDERS: ATTEND Emergency Medicine Undersea and Hyperbaric Medicine
DX: I70.232 Atherosclerosis of native arteries of right leg with ulceration of calf (principal); E11.622 Type 2 diabetes mellitus with other skin ulcer; L97.813 Non-pressure chronic ulcer of other part of right lower leg with necrosis of muscle; F03.90 Unspecified dementia, unspecified severity, without behavioral disturbance, psychotic disturbance, mood disturbance, and anxiety; E11.40 Type 2 diabetes mellitus with diabetic neuropathy, unspecified; M19.90 Unspecified osteoarthritis, unspecified site; E11.51 Type 2 diabetes mellitus with diabetic peripheral angiopathy without gangrene; E11.22 Type 2 diabetes mellitus with diabetic chronic kidney disease; I12.9 Hypertensive chronic kidney disease with stage 1 through stage 4 chronic kidney disease, or unspecified chronic kidney disease; N18.3 Chronic kidney disease, stage 3 (moderate); Z86.73 Personal history of transient ischemic attack (TIA), and cerebral infarction without residual deficits; Z90.710 Acquired absence of both cervix and uterus; Z79.4 Long term (current) use of insulin
CPT/HCPCS: 97597

== ENCOUNTER → 2016-10-02 | Outpatient (CLI) | payer OTHER, MEDICAID | END | disposition home or self-care (01) | LOC: PMGWOUND 10:36 | PROVIDERS: ATTEND Emergency Medicine Undersea and Hyperbaric Medicine | DX: T81.31XD Disruption of external operation (surgical) wound, not elsewhere classified, subsequent encounter (principal); I70.232 Atherosclerosis of native arteries of right leg with ulceration of calf; E11.622 Type 2 diabetes mellitus with other skin ulcer; L97.811 Non-pressure chronic ulcer of other part of right lower leg limited to breakdown of skin; E11.51 Type 2 diabetes mellitus with diabetic peripheral angiopathy without gangrene; E11.40 Type 2 diabetes mellitus with diabetic neuropathy, unspecified; I10 Essential (primary) hypertension; E87.6 Hypokalemia; M19.90 Unspecified osteoarthritis, unspecified site; Z86.73 Personal history of transient ischemic attack (TIA), and cerebral infarction without residual deficits; Y83.8 Other surgical procedures as the cause of abnormal reaction of the patient, or of later complication, without mention of misadventure at the time of the procedure | CPT/HCPCS: 97597 ==

== ENCOUNTER → 2016-10-12 | Outpatient (CLI) | payer OTHER, MEDICAID | END | disposition home or self-care (01) | LOC: PMGWOUND 10:42 | PROVIDERS: ATTEND Emergency Medicine Undersea and Hyperbaric Medicine | DX: T81.31XD Disruption of external operation (surgical) wound, not elsewhere classified, subsequent encounter (principal); I70.232 Atherosclerosis of native arteries of right leg with ulceration of calf; E11.22 Type 2 diabetes mellitus with diabetic chronic kidney disease; I12.9 Hypertensive chronic kidney disease with stage 1 through stage 4 chronic kidney disease, or unspecified chronic kidney disease; N18.3 Chronic kidney disease, stage 3 (moderate); E11.40 Type 2 diabetes mellitus with diabetic neuropathy, unspecified; E11.51 Type 2 diabetes mellitus with diabetic peripheral angiopathy without gangrene; M19.90 Unspecified osteoarthritis, unspecified site; Z90.710 Acquired absence of both cervix and uterus; Z86.73 Personal history of transient ischemic attack (TIA), and cerebral infarction without residual deficits; Z79.4 Long term (current) use of insulin; X58.XXXD Exposure to other specified factors, subsequent encounter | CPT/HCPCS: 97597 ==

== ENCOUNTER → 2016-10-30 | Outpatient (CLI) | payer OTHER, MEDICAID ==
[~2016-10-30] MED LIST changes: +ASPI-612 PO; -ASPI81TA9 PO; +DICL100G18 TP; -DICL100G7 TP; -HYDR-2666 PO; +HYDR-2758 PO
== END | disposition home or self-care (01) ==
LOC: PMGWOUND 11:11
PROVIDERS: ATTEND Emergency Medicine Undersea and Hyperbaric Medicine
DX: I70.232 Atherosclerosis of native arteries of right leg with ulceration of calf (principal); L97.813 Non-pressure chronic ulcer of other part of right lower leg with necrosis of muscle; T81.31XD Disruption of external operation (surgical) wound, not elsewhere classified, subsequent encounter; E11.22 Type 2 diabetes mellitus with diabetic chronic kidney disease; I12.9 Hypertensive chronic kidney disease with stage 1 through stage 4 chronic kidney disease, or unspecified chronic kidney disease; N18.3 Chronic kidney disease, stage 3 (moderate); E11.40 Type 2 diabetes mellitus with diabetic neuropathy, unspecified; E11.51 Type 2 diabetes mellitus with diabetic peripheral angiopathy without gangrene; M19.90 Unspecified osteoarthritis, unspecified site; F03.90 Unspecified dementia, unspecified severity, without behavioral disturbance, psychotic disturbance, mood disturbance, and anxiety; Z86.73 Personal history of transient ischemic attack (TIA), and cerebral infarction without residual deficits; Z90.710 Acquired absence of both cervix and uterus; Z79.4 Long term (current) use of insulin; Y83.8 Other surgical procedures as the cause of abnormal reaction of the patient, or of later complication, without mention of misadventure at the time of the procedure
CPT/HCPCS: 97597

== ENCOUNTER → 2016-11-20 | Outpatient (CLI) | payer OTHER, MEDICAID | END | disposition home or self-care (01) | LOC: PMGWOUND 10:56 | PROVIDERS: ATTEND Emergency Medicine Undersea and Hyperbaric Medicine | DX: T81.31XD Disruption of external operation (surgical) wound, not elsewhere classified, subsequent encounter (principal); I70.232 Atherosclerosis of native arteries of right leg with ulceration of calf; E11.622 Type 2 diabetes mellitus with other skin ulcer; L97.813 Non-pressure chronic ulcer of other part of right lower leg with necrosis of muscle; E11.51 Type 2 diabetes mellitus with diabetic peripheral angiopathy without gangrene; E11.40 Type 2 diabetes mellitus with diabetic neuropathy, unspecified; E11.22 Type 2 diabetes mellitus with diabetic chronic kidney disease; I12.9 Hypertensive chronic kidney disease with stage 1 through stage 4 chronic kidney disease, or unspecified chronic kidney disease; N18.3 Chronic kidney disease, stage 3 (moderate); F03.90 Unspecified dementia, unspecified severity, without behavioral disturbance, psychotic disturbance, mood disturbance, and anxiety; M19.90 Unspecified osteoarthritis, unspecified site; Z86.73 Personal history of transient ischemic attack (TIA), and cerebral infarction without residual deficits; Z90.710 Acquired absence of both cervix and uterus; Z79.4 Long term (current) use of insulin; Y83.8 Other surgical procedures as the cause of abnormal reaction of the patient, or of later complication, without mention of misadventure at the time of the procedure | CPT/HCPCS: 97597 ==

== ENCOUNTER → 2016-12-04 | Outpatient (CLI) | payer OTHER, MEDICAID | END | disposition home or self-care (01) | LOC: PMGWOUND 11:07 | PROVIDERS: ATTEND Emergency Medicine Undersea and Hyperbaric Medicine | DX: T81.31XD Disruption of external operation (surgical) wound, not elsewhere classified, subsequent encounter (principal); I70.232 Atherosclerosis of native arteries of right leg with ulceration of calf; L97.813 Non-pressure chronic ulcer of other part of right lower leg with necrosis of muscle; E11.22 Type 2 diabetes mellitus with diabetic chronic kidney disease; I12.9 Hypertensive chronic kidney disease with stage 1 through stage 4 chronic kidney disease, or unspecified chronic kidney disease; N18.3 Chronic kidney disease, stage 3 (moderate); E11.40 Type 2 diabetes mellitus with diabetic neuropathy, unspecified; E11.51 Type 2 diabetes mellitus with diabetic peripheral angiopathy without gangrene; M19.90 Unspecified osteoarthritis, unspecified site; F03.90 Unspecified dementia, unspecified severity, without behavioral disturbance, psychotic disturbance, mood disturbance, and anxiety; Z79.4 Long term (current) use of insulin; Z90.710 Acquired absence of both cervix and uterus; Z86.73 Personal history of transient ischemic attack (TIA), and cerebral infarction without residual deficits; Y83.8 Other surgical procedures as the cause of abnormal reaction of the patient, or of later complication, without mention of misadventure at the time of the procedure | CPT/HCPCS: 99214 ==

== ENCOUNTER → 2016-12-25 | Outpatient (CLI) | payer OTHER, MEDICAID | END | disposition home or self-care (01) | LOC: PMGWOUND 11:28 | PROVIDERS: ATTEND Emergency Medicine Undersea and Hyperbaric Medicine | DX: T81.89XD Other complications of procedures, not elsewhere classified, subsequent encounter (principal); I70.232 Atherosclerosis of native arteries of right leg with ulceration of calf; E11.622 Type 2 diabetes mellitus with other skin ulcer; L97.211 Non-pressure chronic ulcer of right calf limited to breakdown of skin; E11.51 Type 2 diabetes mellitus with diabetic peripheral angiopathy without gangrene; F03.90 Unspecified dementia, unspecified severity, without behavioral disturbance, psychotic disturbance, mood disturbance, and anxiety; E11.40 Type 2 diabetes mellitus with diabetic neuropathy, unspecified; M19.90 Unspecified osteoarthritis, unspecified site; E23.2 Diabetes insipidus; I10 Essential (primary) hypertension; Z86.73 Personal history of transient ischemic attack (TIA), and cerebral infarction without residual deficits; Y83.8 Other surgical procedures as the cause of abnormal reaction of the patient, or of later complication, without mention of misadventure at the time of the procedure | CPT/HCPCS: 99213 ==

== ENCOUNTER → 2017-08-15 | Outpatient (CLI) | payer OTHER ==
[~2017-08-15] MED LIST changes: -ACET500T55 PO; -ALBU2.5V5 NEB; -AMLO10TA2 PO; -AMLO5TAB2 PO; -ASPI-482 PO; -ASPI-612 PO; -ATOR40TA59 PO; -BUDE10.2 IH; -CARV12.52 PO; -CEPH500C PO; -CIPR250T30 PO; -CLON0.1T PO; -CLOP75TA PO; -DICL100G18 TP; -DONE10TA7 PO; -DOXY100C2 PO; -FAMO20TA5 PO; -FLUT9.9S NS; -GABA-585 PO; -GLIM2TAB2 PO; -HYDR-2758 PO; -HYDR-2869 PO; -HYDR-971 PO; -HYDR12.53 PO; -HYDR12.58 PO; -HYDR25TA9 PO; -HYDR50TA6 PO; -INSU100I13 SQ; -INSU100I17 SQ; -INSU100I27 SQ; -IPRA3AMP NEB; -LEVO250T25 PO; -LIDO700A27 TP; -LINA5TAB4 PO; -LOSA100T6 PO; -METF500T4 PO; -METO100T11 PO; -METO50TA2 PO; +OXYMETAZOLINE 0.05% NASAL SPRAY 30ML BOTTLE. NS; -POTA10TA12 PO; -POTA20PA PO; -PREG50CA PO; -PROAIR HFA8.5 GM IH; -PROVENTIL HFA6.7 GM IH; -SPIR25TA PO; -SPIR25TA3 PO
== END | disposition home or self-care (01) ==
LOC: RT 18:58
DX: G47.33 Obstructive sleep apnea (adult) (pediatric) (principal); I13.10 Hypertensive heart and chronic kidney disease without heart failure, with stage 1 through stage 4 chronic kidney disease, or unspecified chronic kidney disease; E11.40 Type 2 diabetes mellitus with diabetic neuropathy, unspecified; N18.3 Chronic kidney disease, stage 3 (moderate)
CPT/HCPCS: 95810

== ENCOUNTER 2018-06-12 07:51 | Inpatient (IN) | payer OTHER ==
[~2018-06-12] VITALS: Ht 175.3 cm; Wt 107.6 kg
[~2018-06-12 07:51] MED LIST changes: +ACET500T55 PO; +ALBU2.5V5 NEB; +ALBU2.5V8 IH; +AMLO10TA8 PO; +AMLO5TAB10 PO; +ASPI-482 PO; +ASPI-612 PO; +ATOR40TA59 PO; +BUDE10.2 IH; +CARV12.511 PO; +CEPH500C PO; +CIPR250T30 PO; +CLON0.1T PO; +CLOP75TA PO; +DICL100G18 TP; +DONE10TA7 PO; +DOXY100C2 PO; +FAMO20TA5 PO; +FLUT9.9S NS; +GABA-585 PO; +GLIM2TAB2 PO; +HYDR-2145 PO; +HYDR-2761 PO; +HYDR-2869 PO; +HYDR-3164 PO; +HYDR12.575 PO; +HYDR12.58 PO; +HYDR50TA6 PO; +INSU100I13 SQ; +INSU100I17 SQ; +INSU100I27 SQ; +IPRA3AMP29 NEB; +LEVO250T25 PO; +LIDO700A27 TP; +LINA5TAB PO; +LOSA100T14 PO; +METF500T16 PO; +METO-247 PO; +METO50TA6 PO; -OXYMETAZOLINE 0.05% NASAL SPRAY 30ML BOTTLE. NS; +POTA10TA12 PO; +POTA20PA30 PO; +PREG50CA PO; +SPIR25TA PO; +SPIR25TA5 PO
[2018-06-12] MEDS ORDERED: ALBUTEROL SULFATE 2.5 MG/3 ML NEBU. ONE (07:59)
[2018-06-12] MEDS ORDERED: IV NORMAL SALINE 1000ML BAG 1,000 ML IV ONE (08:15)
[2018-06-12 08:23] LABS: BASO % 1 % (0-3); EOS # 0.1 x10^3/uL (0.0-0.7); EOS % 1 % (0-3); HEMATOCRIT 35.5 % (36.0-47.0); HEMOGLOBIN 11.7 g/dL (12.0-15.5); LYMPH % 11 % (24-48); MEAN CORPUSCULAR HEMOGLOBIN 31 pg (25-35); MEAN CORPUSCULAR HGB CONC 33 g/dL (31-37); MEAN CORPUSCULAR VOLUME 94 fL (79-100); MONO # 0.7 x10^3/uL (0.0-1.1); MONO % 7 % (0-9); NEUT # 7.6 x10^3uL (1.8-7.7); NEUT % 81 % (31-73); PLATELET COUNT 177 x10^3/uL (140-400); RED BLOOD COUNT 3.78 x10^6/uL (3.50-5.40); RED CELL DISTRIBUTION WIDTH 14.8 % (11.5-14.5); WHITE BLOOD COUNT 9.4 x10^3/uL (4.0-11.0)
[2018-06-12] MEDS ORDERED: ALBUTEROL SULFATE 2.5 MG/3 ML NEBU. CONT NEB ONE (08:30)
--- NOTE | 2018-06-12 08:30 | EKG ---
[facility] [address] [place] [address] Test Date: 2018-06-12 Test Time: 08:09:05 Pat Name: BURT HOWARD Department: Room: Gender: F [employer] Ste[employer] Tender: : 1945 Requested By: BUBBA GROVES Order Number: [id number] Reading MD: Spenser Castro MD Measurements Intervals [place] Rate: 89 P: -31 SC: 170 QRS: 16 QRSD: 92 T: 144 QT: 338 QTc: 417 Interpretive Statements SR pac artifact prior septal infarct Electronically Signed On 06-13-2018 16:02:35 [employer]EL[employer] by Spenser Castro MD
--- NOTE | 2018-06-12 08:32 | RAD ---
AP chest 06/12/2018 Clinical indication: Short of air. COMPARISON: [facility] chest 06/22/2017 FINDINGS: Cardiac and mediastinal silhouettes unremarkable. There are patchy left basilar opacities. No pleural effusion or pneumothorax. Partial visualization of lower cervical spinal hardware. IMPRESSION: Patchy left basilar opacities indeterminate between atelectasis or infiltrate. Electronically signed by: Yao Carr MD (06/12/2018 8:28 AM) [facility]
[2018-06-12 08:34] LABS: CALCIUM 9.9 mg/dL (8.5-10.1); CREATININE 1.2 mg/dL (0.6-1.0); GFR 53.1; POTASSIUM 3.5 mmol/L (3.5-5.1)
[2018-06-12 08:40] LABS: ALBUMIN 3.4 g/dL (3.4-5.0); ALBUMIN/GLOBULIN RATIO 0.8 (1.0-1.7); TOTAL BILIRUBIN 0.6 mg/dL (0.2-1.0); TOTAL PROTEIN 7.5 g/dL (6.4-8.2)
[2018-06-12 08:56] LABS: INFLUENZA A PATIENT NEGATIVE (NEGATIVE); INFLUENZA B PATIENT NEGATIVE (NEGATIVE)
[2018-06-12] MEDS ORDERED: cloNIDine HCL 0.1 MG TABLET PO ONE (09:00)
[2018-06-12] MEDS ORDERED: OXYB5TAB7 PO (09:25)
[2018-06-12] MEDS ORDERED: INSU100I27 SQ (09:25)
[2018-06-12] MEDS ORDERED: SERT50TA PO (09:25)
[2018-06-12] MEDS ORDERED: PIOG30TA62 PO (09:25)
[2018-06-12 09:36] LABS: BASE EXCESS ABG 0 mmol/L (-3-3); HCO3 ABG 28 mmol/L (21-28); PCO2 ABG 59 mmHg (35-46); PO2 ABG 64 mmHg (65-108); SAT O2 ABG 91 % (92-99)
[2018-06-12 09:37] LABS: FIO2 ABG 32
[2018-06-12] MEDS ORDERED: FUROSEMIDE 40 MG/4 ML VIAL. IVP STA (09:42)
[2018-06-12] MEDS ORDERED: cefTRIAXone IV Push 1 GM VIAL. IVP ONE (10:00)
[2018-06-12] MEDS ORDERED: AZITHRMYCN 500MG IVPB FOR OMNI 250 ML IV ONE (10:00)
[2018-06-12] MEDS ORDERED: LABETALOL 20 MG/4 ML DISP.SYRIN. IVP ONE (10:15)
--- NOTE | 2018-06-12 12:19 | PHYS DOC ---
Past Medical History Past Medical History: Dementia, Diabetes-Type I, Hypertension, TIA, Other Additional Past Medical Histor: OSTEOARTHRITIS Past Surgical History: Other Additional Past Surgical Histo: NECK SURGERY, FEM POP Alcohol Use: None Drug Use: None Adult General Chief Complaint Chief Complaint: SHORTNESS OF BREATH HPI HPI Patient is a 73 year old female with history of hypertension, presents with productive cough and progressive shortness of breath over the past several days. Patient states she spell per respiratory tract infection approximately one month ago was never fully recovered. Ports choice weakness fatigue and malaise. On EMS arrival, the patient was noted to be hypoxic 74% on room air. Patient placed on 3 on use of oxygen and transferred to the emergency department. Denies ([] Review of Systems Review of Systems Review symptoms as per history of present illness. All other review symptoms are negative.] All other systems were reviewed and found to be within normal limits, except as documented in this note. Current Medications Current Medications Current Medications Medications (Trade) Dose Ordered Sig/Blue Start Time Stop Time Status Last Admin Dose Admin Albuterol Sulfate (Ventolin Neb Soln) 10 mg 1X ONCE 06/12/18 08:30 06/12/18 08:31 DC 06/12/18 08:28 10 MG Clonidine HCl (Catapres) 0.2 mg 1X ONCE 06/12/18 09:00 06/12/18 09:01 DC 06/12/18 08:57 0.2 MG Sodium Chloride 1,000 ml @ 1,000 mls/hr 1X ONCE 06/12/18 08:15 06/12/18 09:14 DC 06/12/18 09:00 1,000 MLS/HR Allergies Allergies Allergies Coded Allergies Type Severity Reaction Last Updated Verified No Known Drug Allergies 08/04/16 No Physical Exam Physical Exam Constitutional: Generally weak and fatigued appearing. [] HENT: Normocephalic, atraumatic, bilateral external ears normal, oropharynx moist, no oral exudates, nose, rhinorrhea[] Eyes: PERRLA, EOMI, conjunctiva normal, no discharge. [] Neck: Normal range of motion, no tenderness, supple, no stridor. [] Cardiovascular:Heart rate regular rhythm, no murmur on 2+ peripheral edema, negative Homans signs. [] Lungs & Thorax: Tachypnea, coarse diminished breath sounds throughout, no leg pain or swelling.[] Abdomen: Bowel sounds normal, soft, no tenderness. [] Skin: Warm, dry, no erythema. [] Back: No tenderness, no CVA tenderness. [] Extremities: No tenderness, no cyanosis, no clubbing, ROM intact, no edema. [] Neurologic: Alert and oriented X 3, normal motor function, normal sensory function, no focal deficits noted. [] Psychologic: Affect normal, judgement normal, mood normal. [] Current Patient Data Vital Signs Vital Signs Date Time Temp Pulse Resp B/P (MAP) Pulse Ox O2 Delivery O2 Flow Rate FiO2 06/12/18 09:30 76 30 196/87 (123) 96 Nasal Cannula 3.0 06/12/18 07:51 98.4 98.4 Lab Values Laboratory Tests Test 06/12/18 08:05 06/12/18 08:20 06/12/18 09:25 White Blood Count 9.4 x10^3/uL (4.0-11.0) Red Blood Count 3.78 x10^6/uL (3.50-5.40) Hemoglobin 11.7 g/dL (12.0-15.5) L Hematocrit 35.5 % (36.0-47.0) L Mean Corpuscular Volume 94 fL (79-100) Mean Corpuscular Hemoglobin 31 pg (25-35) Mean Corpuscular Hemoglobin Concent 33 g/dL (31-37) Red Cell Distribution Width 14.8 % (11.5-14.5) H Platelet Count 177 x10^3/uL (140-400) Neutrophils (%) (Auto) 81 % (31-73) H Lymphocytes (%) (Auto) 11 % (24-48) L Monocytes (%) (Auto) 7 % (0-9) Eosinophils (%) (Auto) 1 % (0-3) Basophils (%) (Auto) 1 % (0-3) Neutrophils # (Auto) 7.6 x10^3uL (1.8-7.7) Lymphocytes # (Auto) 1.0 x10^3/uL (1.0-4.8) Monocytes # (Auto) 0.7 x10^3/uL (0.0-1.1) Eosinophils # (Auto) 0.1 x10^3/uL (0.0-0.7) Basophils # (Auto) 0.0 x10^3/uL (0.0-0.2) Sodium Level 146 mmol/L (136-145) H Potassium Level 3.5 mmol/L (3.5-5.1) Chloride Level 105 mmol/L (98-107) Carbon Dioxide Level 31 mmol/L (21-32) Anion Gap 10 (6-14) Blood Urea Nitrogen 19 mg/dL (7-20) Creatinine 1.2 mg/dL (0.6-1.0) H Estimated GFR (Cockcroft-Gault) 53.1 BUN/Creatinine Ratio 16 (6-20) Glucose Level 241 mg/dL (70-99) H Lactic Acid Level 0.8 mmol/L (0.4-2.0) Calcium Level 9.9 mg/dL (8.5-10.1) Total Bilirubin 0.6 mg/dL (0.2-1.0) Aspartate Amino Transferase (AST) 19 U/L (15-37) Alanine Aminotransferase (ALT) 24 U/L (14-59) Alkaline Phosphatase 113 U/L (46-116) Troponin I Quantitative 0.042 ng/mL (0.000-0.055) EM-Dso-L-Type Natriuretic Peptide 1016 pg/mL (0-124) H Total Protein 7.5 g/dL (6.4-8.2) Albumin 3.4 g/dL (3.4-5.0) Albumin/Globulin Ratio 0.8 (1.0-1.7) L Influenza Type A Antigen Negative (NEGATIVE) Influenza Type B Antigen Negative (NEGATIVE) O2 Saturation 91 % (92-99) L Arterial Blood pH 7.29 (7.35-7.45) L Arterial Blood pCO2 at Patient Temp 59 mmHg (35-46) H Arterial Blood pO2 at Patient Temp 64 mmHg (65-108) L Arterial Blood HCO3 28 mmol/L (21-28) Arterial Blood Base Excess 0 mmol/L (-3-3) FiO2 32 Laboratory Tests 06/12/18 08:05 Laboratory Tests 06/12/18 08:05 EKG EKG [EKG: Reviewed] Radiology/Procedures Radiology/Procedures [Chest x-ray: Heart no pulsatile congestion with possible left lower lobe infiltrate per radiology report] Course & Med Decision Making Course & Med Decision Making Pertinent Labs and Imaging studies reviewed. (See chart for details) [Respiratory failure with hypoxia and hypercapnia calf, and elevated hypertension possible pneumonia. IV diuretics, breathing treatment. Dr. Leos to admit.] Chely Disclaimer Chely Disclaimer This electronic medical record was generated, in whole or in part, using a voice recognition dictation system. Departure Departure Impression: Primary Impression: Congestive heart failure (CHF) Additional Impressions: Acute respiratory failure with hypoxia Accelerated hypertension Disposition: 09 ADMITTED INPATIENT Condition: GOOD Referrals: TONY VALDES MD (PCP) Problem Qualifiers BUBBA GROVES DO Jun 12, 2018 12:19
[2018-06-12 12:30] VITALS: BP 177/97
[2018-06-12] MEDS: IPRATRPIUM/ALBUTEROL 0.5/2.5MG 3 ML NEBU. NEB SCH ×3 (12:38→19:31)
[2018-06-12] MEDS: INSULIN LISPRO 300 UNITS/3 ML INSULN.PEN. SQ SCH ×2 (13:00→17:24)
[2018-06-12] MEDS ORDERED: CARVEDILOL 12.5 MG TABLET. PO SCH (13:00)
--- NOTE | 2018-06-12 13:29 | PDOC2 ---
CORRIE DUONG DIRECTOR MARKETING [employer]LYTICS 06/12/18 1329: CARDIAC CONSULT DATE OF CONSULT Date of Consult DATE: 06/12/18 TIME: 13:18 REASON FOR CONSULT Reason for Consult: CHF HTN REFERRING PHYSICIAN Referring Physician: Dr. Snider SOURCE Source: Chart review, Patient HISTORY OF PRESENT ILLNESS HISTORY OF PRESENT ILLNESS This is a 73 yo female who presented secondary to shortness of breath. Has been progressive over the last couple days. Went on a [employer] [place] for 7 days last week. Return this past Sunday. Patient reports she has been experience some mild shortness of breath over the trip. Much worse over the last coupe of days. Has had persisted lower extremity edema for the last couple of week. Worse this past week. Family report she was more drowsy and dyspneic while on vacation. Patient reports intermittent cough; non-productive. Had an episode chest pain yesterday. Located in her central chest. Was achy. Worsened with coughing. Patient denies any palpitations, dizziness, diaphoresis, PND, or nausea/vomiting. PAST MEDICAL HISTORY Cardiovascular: HTN, Hyperlipidemia, Other (PVD) Pulmonary: Other (ALEXYS with CPAP) CENTRAL NERVOUS SYSTEM: Periperal neuropathy, TIA GI: No pertinent hx Heme/Onc: No pertinent hx Hepatobiliary: No pertinent hx Psych: Anxiety, Depression Musculoskeletal: Osteoarthritis Rheumatologic: No pertinent hx Infectious disease: No pertinent hx ENT: No pertinent hx Renal/: Chronic renal insuff, UTI, Other (urgency ) Endocrine: Diabetes PAST SURGICAL HISTORY Past Surgical History: Tonsillectomy, Hysterectomy, Other (Right popliteal to peroneal artery bypass graft, right surgery) FAMILY HISTORY Family History: Hypertension SOCIAL HISTORY Smoke: No ALCOHOL: none Drugs: None Lives: with Family CURRENT MEDICATIONS CURRENT MEDICATIONS Current Medications Medications (Trade) Dose Ordered Sig/Blue Route PRN Reason Start Time Stop Time Status Last Admin Dose Admin Sodium Chloride 1,000 ml @ 1,000 mls/hr 1X ONCE IV 06/12/18 08:15 06/12/18 09:14 DC 06/12/18 09:00 Albuterol Sulfate (Ventolin Neb Soln) 10 mg 1X ONCE CONT NEB 06/12/18 08:30 06/12/18 08:31 DC 06/12/18 08:28 Clonidine HCl (Catapres) 0.2 mg 1X ONCE PO 06/12/18 09:00 06/12/18 09:01 DC 06/12/18 08:57 Furosemide (Lasix) 40 mg 1X STAT IVP 06/12/18 09:42 06/12/18 09:43 DC 06/12/18 09:55 Ceftriaxone Sodium (Rocephin) 1 gm 1X ONCE IVP 06/12/18 10:00 06/12/18 10:01 DC 06/12/18 09:58 Azithromycin 250 ml @ 250 mls/hr 1X ONCE IV 06/12/18 10:00 06/12/18 10:59 DC 06/12/18 10:34 Albuterol/ Ipratropium (Duoneb) 3 ml RTQID NEB 06/12/18 12:00 06/13/18 11:59 06/12/18 12:38 ALLERGIES ALLERGIES: Coded Allergies: No Known Drug Allergies (Unverified , 08/04/16) ROS Review of System 14 point ROS conducted with pertinent positives noted above in HPI. PHYSICAL EXAM General: Alert, Cooperative, mild distress HEENT: Atraumatic, Mucous membr. moist/pink Lungs: Other (crackles throughout with fine expiratory wheezes) Heart: Regular rate, Normal S1, Normal S2 Abdomen: Soft, No tenderness Extremities: Normal pulses, Other (2+ bilateral LE edema ) Skin: No breakdown, No significant lesion Neuro: Normal speech, Sensation intact Psych/Mental Status: Mental status NL, Other (drowsy ) MUSCULOSKELETAL: Osteoarthritic changes both hands VITALS VITALS Vital Signs Date Time Temp Pulse Resp B/P (MAP) Pulse Ox O2 Delivery O2 Flow Rate FiO2 06/12/18 12:38 94 Nasal Cannula 2.5 06/12/18 12:30 97.5 68 18 177/97 (123) 97.5 LABS Lab: Laboratory Tests Test 06/12/18 08:05 06/12/18 08:20 06/12/18 09:25 White Blood Count 9.4 x10^3/uL (4.0-11.0) Red Blood Count 3.78 x10^6/uL (3.50-5.40) Hemoglobin 11.7 g/dL (12.0-15.5) Hematocrit 35.5 % (36.0-47.0) Mean Corpuscular Volume 94 fL (79-100) Mean Corpuscular Hemoglobin 31 pg (25-35) Mean Corpuscular Hemoglobin Concent 33 g/dL (31-37) Red Cell Distribution Width 14.8 % (11.5-14.5) Platelet Count 177 x10^3/uL (140-400) Neutrophils (%) (Auto) 81 % (31-73) Lymphocytes (%) (Auto) 11 % (24-48) Monocytes (%) (Auto) 7 % (0-9) Eosinophils (%) (Auto) 1 % (0-3) Basophils (%) (Auto) 1 % (0-3) Neutrophils # (Auto) 7.6 x10^3uL (1.8-7.7) Lymphocytes # (Auto) 1.0 x10^3/uL (1.0-4.8) Monocytes # (Auto) 0.7 x10^3/uL (0.0-1.1) Eosinophils # (Auto) 0.1 x10^3/uL (0.0-0.7) Basophils # (Auto) 0.0 x10^3/uL (0.0-0.2) Sodium Level 146 mmol/L (136-145) Potassium Level 3.5 mmol/L (3.5-5.1) Chloride Level 105 mmol/L (98-107) Carbon Dioxide Level 31 mmol/L (21-32) Anion Gap 10 (6-14) Blood Urea Nitrogen 19 mg/dL (7-20) Creatinine 1.2 mg/dL (0.6-1.0) Estimated GFR (Cockcroft-Gault) 53.1 BUN/Creatinine Ratio 16 (6-20) Glucose Level 241 mg/dL (70-99) Lactic Acid Level 0.8 mmol/L (0.4-2.0) Calcium Level 9.9 mg/dL (8.5-10.1) Total Bilirubin 0.6 mg/dL (0.2-1.0) Aspartate Amino Transf (AST/SGOT) 19 U/L (15-37) Alanine Aminotransferase (ALT/SGPT) 24 U/L (14-59) Alkaline Phosphatase 113 U/L (46-116) Troponin I Quantitative 0.042 ng/mL (0.000-0.055) SI-Xhv-J-Type Natriuretic Peptide 1016 pg/mL (0-124) Total Protein 7.5 g/dL (6.4-8.2) Albumin 3.4 g/dL (3.4-5.0) Albumin/Globulin Ratio 0.8 (1.0-1.7) Influenza Type A Antigen Negative (NEGATIVE) Influenza Type B Antigen Negative (NEGATIVE) O2 Saturation 91 % (92-99) Arterial Blood pH 7.29 (7.35-7.45) Arterial Blood pCO2 at Patient Temp 59 mmHg (35-46) Arterial Blood pO2 at Patient Temp 64 mmHg (65-108) Arterial Blood HCO3 28 mmol/L (21-28) Arterial Blood Base Excess 0 mmol/L (-3-3) FiO2 32 ECHOCARDIOGRAM ECHOCARDIOGRAM <Conclusion> Normal LV systolic function. EF 55% No significant wall motion abnormalities. No significant valvular abnormalities. DATE: 07/05/15 1647 ASSESSMENT/PLAN ASSESSMENT/PLAN 1. Acute hypoxic respiratory failure secondary to acute HF and possible PNA.Pulmonary consulted. 2. Acute probable diastolic HF; LVEF 55% (06/2015). Received IV Lasix in ED 3. Malignant hypertension; remains elevated. Has not taken routine oral BP meds today. 4. Hyperlipidemia; statin 5. DM,II 6. CKD; Cr lower than baseline review 7. ALEXYS with CPAP 8. PVD s/p right popliteal to peroneal artery bypass. No claudication symptoms Recommendations Resume oral antiHTN therapy Hold Coreg for now with wheezes Hydralazine IV PRN Diuresis PRN Check echo to assess LV systolic function Based upon risk factors, consider further ischemic workup on an outpatient basis , unless TTE noted with significant LV dysfunction. Follow pulm recommendations. DALLAS SORIANO MD 06/12/18 1832: CARDIAC CONSULT ASSESSMENT/PLAN ASSESSMENT/PLAN Pt. seen and examined. Agree with above CADASTRAL SURVEYOR note. Probable mild diastolic HF due to uncontrolled HTN. Diuresis as Cr allows. Add hydralazine 50mg bid. Will f/u in a.m. Echo wnl. AD,CORRIE DIRK Jun 12, 2018 13:29 DALLAS SORIANO MD Jun 12, 2018 18:32
--- NOTE | 2018-06-12 13:32 | HP ---
ADMIT DATE: 06/12/2018 CHIEF COMPLAINT: Shortness of breath. HISTORY OF PRESENT ILLNESS: The patient is a pleasant 73-year-old female who presents to the ER with shortness of breath. It has been occurring for several days, rated at 10/10. She describes it as agonizing, worse with moving. We did a chest x-ray showing pneumonia. I discussed the case with ER physician. We are going to admit the patient, give her some IV antibiotics, breathing treatments, oxygen and consult Pulmonary. PAST MEDICAL HISTORY: Previous pneumonia, diabetes, osteoarthritis, hypertension, TIA. PAST SURGICAL HISTORY: Neck surgery, fem-pop surgery. ALLERGIES: None. FAMILY HISTORY: Diabetes. SOCIAL HISTORY: She does not drink, smoke or take drugs. MEDICATIONS: She is on Aricept, atorvastatin, Coreg, amlodipine, losartan, aspirin, hydrocodone, Zoloft, NovoLog, Levemir, and oxybutynin. REVIEW OF SYSTEMS: Unable to obtain. The patient is a little too confused. PHYSICAL EXAMINATION: VITAL SIGNS: Temperature 97, pulse 68, respirations 18, blood pressure 170/94, O2 sat 93% on 3 liters. GENERAL: She is awake. Seems to be depressed, seems to be in mild respiratory distress, does not really talk. HEART: Distant S1, S2 with a soft S3. LUNGS: Coarse. ABDOMEN: Soft. EXTREMITIES: Trace edema. SKIN: No rashes. ENDOCRINE: No thyromegaly. LYMPHATICS: No cervical nodes. HEMATOPOIETIC: No bruising. Chest x-ray shows pneumonia. LABORATORY DATA: White count is 9, hemoglobin 12. Electrolytes are normal other than a sodium of 146 and a glucose of 241. BNP is high at 1016. ASSESSMENT AND PLAN: Pneumonia and I also suspect she has acute on chronic systolic and diastolic heart failure. The patient has been admitted. We will start IV antibiotics, breathing treatments, oxygen. Consult Pulmonary, consult Cardiology. Home meds, frequent labs, PT, OT. PROGNOSIS: Guarded. MARIFER BOLAÑOS DO DR: NGA/shane JOB#: [id number] / [id number]
[2018-06-12] MEDS: ASPIRIN ENTERIC COATED 81 MG TABLET.DR. PO SCH (14:08)
[2018-06-12] MEDS: amLODIPine BESYLATE 10 MG TABLET PO SCH (14:08)
[2018-06-12] MEDS: PIOGLITAZONE 15 MG TABLET. PO SCH (14:08)
[2018-06-12] MEDS: OXYBUTYNIN CHLORIDE 5 MG TABLET PO SCH ×2 (14:08→20:49)
[2018-06-12] MEDS: LOSARTAN POTASSIUM 50 MG TABLET. PO SCH (14:09)
[2018-06-12] MEDS: SERTRALINE 50 MG TABLET. PO SCH (14:09)
[2018-06-12 15:16] VITALS: BP 162/89
--- NOTE | 2018-06-12 16:13 | PDOC ---
PULMONARY PROGRESS NOTES Vitals Vital Signs Date Time Temp Pulse Resp B/P (MAP) Pulse Ox O2 Delivery O2 Flow Rate FiO2 06/12/18 15:16 97.5 71 20 162/89 (113) 94 Nasal Cannula 3.0 97.5 General: Alert, No acute distress Lungs: Other Cardiovascular: S1 Abdomen: Soft Extremities: No Edema Labs Laboratory Tests Test 06/12/18 08:05 06/12/18 08:20 06/12/18 09:25 06/12/18 13:17 White Blood Count 9.4 x10^3/uL (4.0-11.0) Red Blood Count 3.78 x10^6/uL (3.50-5.40) Hemoglobin 11.7 g/dL (12.0-15.5) Hematocrit 35.5 % (36.0-47.0) Mean Corpuscular Volume 94 fL (79-100) Mean Corpuscular Hemoglobin 31 pg (25-35) Mean Corpuscular Hemoglobin Concent 33 g/dL (31-37) Red Cell Distribution Width 14.8 % (11.5-14.5) Platelet Count 177 x10^3/uL (140-400) Neutrophils (%) (Auto) 81 % (31-73) Lymphocytes (%) (Auto) 11 % (24-48) Monocytes (%) (Auto) 7 % (0-9) Eosinophils (%) (Auto) 1 % (0-3) Basophils (%) (Auto) 1 % (0-3) Neutrophils # (Auto) 7.6 x10^3uL (1.8-7.7) Lymphocytes # (Auto) 1.0 x10^3/uL (1.0-4.8) Monocytes # (Auto) 0.7 x10^3/uL (0.0-1.1) Eosinophils # (Auto) 0.1 x10^3/uL (0.0-0.7) Basophils # (Auto) 0.0 x10^3/uL (0.0-0.2) Sodium Level 146 mmol/L (136-145) Potassium Level 3.5 mmol/L (3.5-5.1) Chloride Level 105 mmol/L (98-107) Carbon Dioxide Level 31 mmol/L (21-32) Anion Gap 10 (6-14) Blood Urea Nitrogen 19 mg/dL (7-20) Creatinine 1.2 mg/dL (0.6-1.0) Estimated GFR (Cockcroft-Gault) 53.1 BUN/Creatinine Ratio 16 (6-20) Glucose Level 241 mg/dL (70-99) Lactic Acid Level 0.8 mmol/L (0.4-2.0) Calcium Level 9.9 mg/dL (8.5-10.1) Total Bilirubin 0.6 mg/dL (0.2-1.0) Aspartate Amino Transf (AST/SGOT) 19 U/L (15-37) Alanine Aminotransferase (ALT/SGPT) 24 U/L (14-59) Alkaline Phosphatase 113 U/L (46-116) Troponin I Quantitative 0.042 ng/mL (0.000-0.055) IX-Whz-B-Type Natriuretic Peptide 1016 pg/mL (0-124) Total Protein 7.5 g/dL (6.4-8.2) Albumin 3.4 g/dL (3.4-5.0) Albumin/Globulin Ratio 0.8 (1.0-1.7) Influenza Type A Antigen Negative (NEGATIVE) Influenza Type B Antigen Negative (NEGATIVE) O2 Saturation 91 % (92-99) Arterial Blood pH 7.29 (7.35-7.45) Arterial Blood pCO2 at Patient Temp 59 mmHg (35-46) Arterial Blood pO2 at Patient Temp 64 mmHg (65-108) Arterial Blood HCO3 28 mmol/L (21-28) Arterial Blood Base Excess 0 mmol/L (-3-3) FiO2 32 Glucose (Fingerstick) 191 mg/dL (70-99) Laboratory Tests Test 06/12/18 08:05 06/12/18 08:20 06/12/18 09:25 06/12/18 13:17 White Blood Count 9.4 x10^3/uL (4.0-11.0) Red Blood Count 3.78 x10^6/uL (3.50-5.40) Hemoglobin 11.7 g/dL (12.0-15.5) Hematocrit 35.5 % (36.0-47.0) Mean Corpuscular Volume 94 fL (79-100) Mean Corpuscular Hemoglobin 31 pg (25-35) Mean Corpuscular Hemoglobin Concent 33 g/dL (31-37) Red Cell Distribution Width 14.8 % (11.5-14.5) Platelet Count 177 x10^3/uL (140-400) Neutrophils (%) (Auto) 81 % (31-73) Lymphocytes (%) (Auto) 11 % (24-48) Monocytes (%) (Auto) 7 % (0-9) Eosinophils (%) (Auto) 1 % (0-3) Basophils (%) (Auto) 1 % (0-3) Neutrophils # (Auto) 7.6 x10^3uL (1.8-7.7) Lymphocytes # (Auto) 1.0 x10^3/uL (1.0-4.8) Monocytes # (Auto) 0.7 x10^3/uL (0.0-1.1) Eosinophils # (Auto) 0.1 x10^3/uL (0.0-0.7) Basophils # (Auto) 0.0 x10^3/uL (0.0-0.2) Sodium Level 146 mmol/L (136-145) Potassium Level 3.5 mmol/L (3.5-5.1) Chloride Level 105 mmol/L (98-107) Carbon Dioxide Level 31 mmol/L (21-32) Anion Gap 10 (6-14) Blood Urea Nitrogen 19 mg/dL (7-20) Creatinine 1.2 mg/dL (0.6-1.0) Estimated GFR (Cockcroft-Gault) 53.1 BUN/Creatinine Ratio 16 (6-20) Glucose Level 241 mg/dL (70-99) Lactic Acid Level 0.8 mmol/L (0.4-2.0) Calcium Level 9.9 mg/dL (8.5-10.1) Total Bilirubin 0.6 mg/dL (0.2-1.0) Aspartate Amino Transf (AST/SGOT) 19 U/L (15-37) Alanine Aminotransferase (ALT/SGPT) 24 U/L (14-59) Alkaline Phosphatase 113 U/L (46-116) Troponin I Quantitative 0.042 ng/mL (0.000-0.055) KB-Dzc-S-Type Natriuretic Peptide 1016 pg/mL (0-124) Total Protein 7.5 g/dL (6.4-8.2) Albumin 3.4 g/dL (3.4-5.0) Albumin/Globulin Ratio 0.8 (1.0-1.7) Influenza Type A Antigen Negative (NEGATIVE) Influenza Type B Antigen Negative (NEGATIVE) O2 Saturation 91 % (92-99) Arterial Blood pH 7.29 (7.35-7.45) Arterial Blood pCO2 at Patient Temp 59 mmHg (35-46) Arterial Blood pO2 at Patient Temp 64 mmHg (65-108) Arterial Blood HCO3 28 mmol/L (21-28) Arterial Blood Base Excess 0 mmol/L (-3-3) FiO2 32 Glucose (Fingerstick) 191 mg/dL (70-99) Medications Active Scripts Medications Dose Route/Sig Max Daily Dose Days Date Category Oxybutynin Chloride 5 Mg Tablet 10 Mg PO HS 06/12/18 Reported Levemir Flextouch (Insulin Detemir) 100 Unit/1 Ml Insuln.pen 40 Unit SQ HS 06/12/18 Reported Pioglitazone Hcl 30 Mg Tablet 30 Mg PO DAILY 06/12/18 Reported Zoloft (Sertraline Hcl) 50 Mg Tablet 1 Tab PO DAILY 06/12/18 Reported Hydrocodone-Apap 5-325 (Hydrocodone Bit/Acetaminophen) 1 Each Tablet 1 Tab PO PRN Q4HRS PRN 28 08/09/16 Rx Carvedilol (Carvedilol) 12.5 Mg Tablet 12.5 Mg PO BIDWMEALS 07/21/16 Reported Atorvastatin Calcium 40 Mg Tablet 40 Mg PO HS 07/21/16 Reported Novolog Flexpen (Insulin Aspart) 100 Unit/1 Ml Insuln.pen 0 Units SQ TIDWMEALS 30 03/17/16 Rx Aspirin Ec (Aspirin) 81 Mg Tablet.dr 81 Mg PO 03/14/16 Reported Amlodipine Besylate 10 Mg Tablet 10 Mg PO DAILY 03/14/16 Reported Donepezil Hcl 10 Mg Tablet 10 Mg PO HS 03/14/16 Reported Losartan Potassium 100 Mg Tablet 100 Mg PO DAILY 07/24/13 Reported Impression . note dictated see orders a resp failure sec to pneumonia/phil ALLEN CHEEK MD Jun 12, 2018 16:13
--- NOTE | 2018-06-12 16:16 | CARD ---
MR#: [id number] Date of Study: 06/12/2018 Ordering Physician: CORRIE DUONG, Referring Physician: Cecy CHILDS: Lidya Barajas APPROVED REPORT EXAM: Two-dimensional and M-mode echocardiogram with Doppler and color Doppler. Other Information Quality : AverageHR: 65bpm Rhythm : NSR INDICATION Dyspnea RISK FACTORS Hypertension Diabetes 2D DIMENSIONS RVDd2.9 (2.9-3.5cm)Left Atrium(2D)3.9 (1.6-4.0cm) IVSd1.5 (0.7-1.1cm)Aortic Root(2D)2.9 (2.0-3.7cm) LVDd4.5 (3.9-5.9cm)LVOT Diameter2.2 (1.8-2.4cm) PWd1.3 (0.7-1.1cm)LVDs3.0 (2.5-4.0cm) FS (%) 32.2 %SV54.6 ml LVEF(%)60.5 (>50%) Aortic Valve AoV Peak Ridge.154.5cm/sAoV VTI37.4cm AO Peak GR.9.5mmHgLVOT VTI 24.23cm AO Mean GR.5mmHg Mitral Valve MV E Utzqybev66.0cm/sMV DECEL [id number] MV A Xhfqgqeb01.4cm/sE/A Ratio1.0 TDI Lateral E' P. V7.58cm/sMedial E' P. V12.39cm/s E/Lateral E'11.9E/Medial E'7.3 Tricuspid Valve TR P. Puygkcyb485hh/sRAP [id number] TR Peak Gr.01qpKxMGXX12ymXt Pulmonary Vein S1 Vbtchnuq61.0cm/sS2 Lqbmiktt80.20cm/s D2 Wdlrswqd21.2cm/sPVa [id number] LEFT VENTRICLE The left ventricle is normal size. There is moderate concentric left ventricular hypertrophy. The lef t ventricular systolic function is normal. The Ejection Fraction is 55%. There is normal LV segmental wall motion. The left ventricular diastolic function and filling is normal for age. RIGHT VENTRICLE The right ventricle is normal size. There is normal right ventricular wall thickness. The right ventr icular systolic function is normal. ATRIA The left atrium size is normal. The right atrium size is normal. The interatrial septum is intact wit h no evidence for an atrial septal defect or patent foramen ovale as noted on 2-D or Doppler imaging. AORTIC VALVE The aortic valve is not well visualized. Doppler and Color Flow revealed no significant aortic regurg itation. There is no significant aortic valvular stenosis. MITRAL VALVE The mitral valve is normal in structure and function. There is no evidence of mitral valve prolapse. There is no mitral valve stenosis. Doppler and Color-flow revealed trace mitral regurgitation. TRICUSPID VALVE The tricuspid valve is not well visualized. Doppler and Color Flow revealed trace tricuspid regurgita tion. There is no tricuspid valve stenosis. PULMONIC VALVE The pulmonic valve is not well visualized. Doppler and Color Flow revealed no pulmonic valvular regur gitation. GREAT VESSELS The aortic root is normal in size. The IVC was not visualized. PERICARDIAL EFFUSION There is small left pleural effusion. There is no evidence of significant pericardial effusion. Critical Notification Critical Value: No <Conclusion> The left ventricular systolic function is normal. The Ejection Fraction is 55%. There is normal LV segmental wall motion. Trace mitral regurgitation. Trace tricuspid regurgitation. There is no evidence of significant pericardial effusion. Signed by : Sergio Cast, Electronically Approved : 06/12/2018 16:14:53
[2018-06-12] MEDS ORDERED: NON FORMULARY ITEM (Insulin Aspart (Novolog Flexpen) 0 UNITS) SQ SCH (17:00)
[2018-06-12] MEDS: ACETAMINOPHEN 325 MG TABLET. PO PRN (17:20)
--- NOTE | 2018-06-12 18:02 | RAD ---
Ultrasound venous Doppler INDICATION:Shortness of breath TECHNIQUE: Grayscale, color Doppler and spectral waveform ultrasound images of the bilateral lower extremities deep veins obtained. COMPARISON: None FINDINGS: The interrogated deep veins are compressible and demonstrate evidence of blood flow with normal respiratory variation and response to augmentation. Bilateral calf soft tissue edema. IMPRESSION: No sonographic evidence of acute DVT of the bilateral lower extremity deep veins. Electronically signed by: Tyler Mcfarland DO (06/12/2018 5:58 PM) [facility]
[2018-06-12 19:00] VITALS: BP 139/53
[2018-06-12] MEDS: LACTOBACILLUS RHAMNOSUS GG 1 CAPSULE. PO SCH (20:48)
[2018-06-12] MEDS: ATORVASTATIN CALCIUM 40 MG TABLET. PO SCH (20:48)
[2018-06-12] MEDS: DONEPEZIL HCL 10 MG TABLET. PO SCH (20:49)
[2018-06-12] MEDS: INSULIN GLARGINE 300 UNITS/3 ML INSULN.PEN. SQ SCH (20:56)
[2018-06-12 23:00] VITALS: BP 141/62
--- NOTE | 2018-06-12 23:24 | CONS ---
DATE OF CONSULTATION: 06/12/2018 ATTENDING PHYSICIAN: Darryl Leos DO. REASON FOR CONSULTATION: The patient is seen in Pulmonary consultation at the request of Dr. Leos for abnormal arterial blood gas revealing a pH of 7.29, paCO2 of 59 and pO2 of 64 along with dyspnea. HISTORY OF PRESENT ILLNESS: The patient is a 73-year-old that recently went on a cruise. According to her sister, initially, she was walking, but when she got to the cruise, she was weak to the point where she more or less used a wheelchair. She flew back. She came in because she slid on the floor and fell. She has also been more short of breath. No acute onset of shortness of breath associated with syncope or near syncopal episode. She does have chronic lower extremity edema. There is no prior history of DVT or pulmonary embolism. An arterial blood gas was obtained, revealing the above. Chest x-ray was likewise obtained, which revealed a patchy left basal opacity. Denies fever, chills, nausea or vomiting. PAST MEDICAL HISTORY: Obstructive sleep apnea, uses CPAP at home; diabetes; hypertension; TIA; osteoarthritis; morbid obesity and generalized weakness. PAST SURGICAL HISTORY: She has had previous aortofemoral-popliteal bypass surgery. REVIEW OF SYSTEMS: CONSTITUTIONAL: No fever or chills. EYES: No change in visual acuity. HEENT: No nasal congestion or sore throat. PULMONARY: As indicated above. CARDIOVASCULAR: No chest pain or pressure. She does not see a manager air on a regular basis. There is no history of CHF. GASTROINTESTINAL: No nausea, vomiting or diarrhea. GENITOURINARY: No dysuria or frequency. MUSCULOSKELETAL: No localized muscle aches or joint pains. SKIN: No new skin rashes. NEUROLOGIC: No headaches, diplopia or blurred vision. MEDICATIONS: Medication list from home was reviewed. Current medication list was reviewed. ALLERGIES: No known drug allergies. SOCIAL HISTORY: She does not smoke. PHYSICAL EXAMINATION: GENERAL: On examination, morbidly obese individual with mild respiratory distress on 2.5 liters of oxygen supplementation. HEENT: Eyes, the sclerae were nonicteric. NECK: Jugular venous distention could not be assessed secondary to body habitus. CHEST: Full expansion. LUNGS: Poor airway flow, with no wheezes. CARDIOVASCULAR EXAMINATION: Regular rate and rhythm with S1 and S2. No S3. ABDOMEN: Soft and nontender. EXTREMITIES: No clubbing or cyanosis; 1+ edema. NEUROLOGIC: The patient was weak. She was able to barely sit up in bed. She was able to only slightly lift the legs off the bed, one at a time. LABORATORY DATA: Labs were reviewed. White count was normal. Hemoglobin and hematocrit were noted. Arterial blood gas; pH is 7.29, paCO2 of 59 and pO2 of 64 on 32%. IMPRESSION: 1. Acute hypercapnic hypoxemic respiratory failure. 2. Abnormal x-ray compatible with pneumonia, possibly gram negative. 3. Generalized weakness. 4. Renal insufficiency. 5. Elevated BNP. 6. Obstructive sleep apnea. 7. Suspect secondary pulmonary hypertension. 8. Suspect right-sided heart failure. PLAN: 1. IV antibiotics. 2. Venous Doppler of the lower extremities. 3. Mild diuresis. 4. Continue home meds. 5. The patient will require aggressive physical therapy. I think most of her dyspnea is related to deconditioning. 6. P.r.n. BiPAP. The above was discussed with family members at the bedside and RN. ALLEN CHEEK MD DR: ANN MARIE/shane JOB#: [id number] / [id number]
[2018-06-13 03:00] VITALS: BP 108/75
[2018-06-13 07:15] VITALS: BP 176/71
[2018-06-13] MEDS: IPRATRPIUM/ALBUTEROL 0.5/2.5MG 3 ML NEBU. NEB SCH ×5 (07:30→19:59)
[2018-06-13] MEDS: INSULIN LISPRO 300 UNITS/3 ML INSULN.PEN. SQ SCH ×3 (08:00→17:00)
[2018-06-13] MEDS: SERTRALINE 50 MG TABLET. PO SCH (08:23)
[2018-06-13] MEDS: OXYBUTYNIN CHLORIDE 5 MG TABLET PO SCH ×2 (08:24→21:37)
[2018-06-13] MEDS: PIOGLITAZONE 15 MG TABLET. PO SCH (08:24)
[2018-06-13] MEDS: amLODIPine BESYLATE 10 MG TABLET PO SCH (08:24)
[2018-06-13] MEDS: ASPIRIN ENTERIC COATED 81 MG TABLET.DR. PO SCH (08:24)
[2018-06-13] MEDS: LOSARTAN POTASSIUM 50 MG TABLET. PO SCH (08:25)
[2018-06-13] MEDS: LACTOBACILLUS RHAMNOSUS GG 1 CAPSULE. PO SCH ×2 (08:29→21:38)
[2018-06-13] MEDS: cefTRIAXone IV Push 1 GM VIAL. IVP SCH (08:51)
[2018-06-13] MEDS: AZITHROMYCIN 500 MG in IV NORMAL SALINE 250ML 250 ML IV SCH ×2 (08:52→10:11)
--- NOTE | 2018-06-13 10:09 | PDOC ---
PROGRESS NOTES Chief Complaint Chief Complaint SOA, CHF exacerbation History of Present Illness History of Present Illness Patient was seen and examined at the bedside this morning. She was using her bipap, so communication was limited. She acknowledged that she is feeling a little better, but is still SOA. Vitals Vitals Vital Signs Date Time Temp Pulse Resp B/P (MAP) Pulse Ox O2 Delivery O2 Flow Rate FiO2 06/13/18 08:25 63 176/71 06/13/18 07:31 95 BiPAP/CPAP 06/13/18 07:30 2.5 06/13/18 07:15 98.5 20 98.5 Physical Exam General: Alert, Oriented X3, Cooperative, mild distress Heart: Regular rate, Normal S1, Normal S2 Lungs: Other Abdomen: Soft, No tenderness Extremities: Normal pulses, Other (2+ bilateral LE edema ) Skin: No breakdown, No significant lesion Labs LABS Laboratory Tests Test 06/12/18 13:17 06/12/18 16:41 06/12/18 20:10 06/13/18 04:35 Glucose (Fingerstick) 191 mg/dL (70-99) 202 mg/dL (70-99) 237 mg/dL (70-99) Triglycerides Level 53 mg/dL (0-150) Cholesterol Level 108 mg/dL (0-200) LDL Cholesterol, Calculated 44 mg/dL (0-100) VLDL Cholesterol, Calculated 11 mg/dL (0-40) Non-HDL Cholesterol Calculated 55 mg/dL (0-129) HDL Cholesterol 53 mg/dL (40-60) Cholesterol/HDL Ratio 2.0 Test 06/13/18 07:23 Glucose (Fingerstick) 82 mg/dL (70-99) Review of Systems Review of Systems Heart: denies chest pain Lung: denies soa Integument denies rash Assessment and Plan Assessmemt and Plan Assessment: 1. CHF exacerbation 2. HTN 3. Acute respiratory failure w/ hypoxia Plan: 1. BiPap PRN 2. Antibiotics 3. BP control 4. Diurese 5. Aggressive PT/OT 6. Labs 7. Home meds Comment Review of Relevant I have reviewed the following items joel (where applicable) has been applied. Labs Laboratory Tests Test 06/12/18 08:05 06/12/18 08:20 06/12/18 09:25 06/12/18 13:17 White Blood Count 9.4 x10^3/uL (4.0-11.0) Red Blood Count 3.78 x10^6/uL (3.50-5.40) Hemoglobin 11.7 g/dL (12.0-15.5) Hematocrit 35.5 % (36.0-47.0) Mean Corpuscular Volume 94 fL (79-100) Mean Corpuscular Hemoglobin 31 pg (25-35) Mean Corpuscular Hemoglobin Concent 33 g/dL (31-37) Red Cell Distribution Width 14.8 % (11.5-14.5) Platelet Count 177 x10^3/uL (140-400) Neutrophils (%) (Auto) 81 % (31-73) Lymphocytes (%) (Auto) 11 % (24-48) Monocytes (%) (Auto) 7 % (0-9) Eosinophils (%) (Auto) 1 % (0-3) Basophils (%) (Auto) 1 % (0-3) Neutrophils # (Auto) 7.6 x10^3uL (1.8-7.7) Lymphocytes # (Auto) 1.0 x10^3/uL (1.0-4.8) Monocytes # (Auto) 0.7 x10^3/uL (0.0-1.1) Eosinophils # (Auto) 0.1 x10^3/uL (0.0-0.7) Basophils # (Auto) 0.0 x10^3/uL (0.0-0.2) Sodium Level 146 mmol/L (136-145) Potassium Level 3.5 mmol/L (3.5-5.1) Chloride Level 105 mmol/L (98-107) Carbon Dioxide Level 31 mmol/L (21-32) Anion Gap 10 (6-14) Blood Urea Nitrogen 19 mg/dL (7-20) Creatinine 1.2 mg/dL (0.6-1.0) Estimated GFR (Cockcroft-Gault) 53.1 BUN/Creatinine Ratio 16 (6-20) Glucose Level 241 mg/dL (70-99) Lactic Acid Level 0.8 mmol/L (0.4-2.0) Calcium Level 9.9 mg/dL (8.5-10.1) Total Bilirubin 0.6 mg/dL (0.2-1.0) Aspartate Amino Transf (AST/SGOT) 19 U/L (15-37) Alanine Aminotransferase (ALT/SGPT) 24 U/L (14-59) Alkaline Phosphatase 113 U/L (46-116) Troponin I Quantitative 0.042 ng/mL (0.000-0.055) AW-[id number]-W-Type Natriuretic Peptide 1016 pg/mL (0-124) Total Protein 7.5 g/dL (6.4-8.2) Albumin 3.4 g/dL (3.4-5.0) Albumin/Globulin Ratio 0.8 (1.0-1.7) Influenza Type A Antigen Negative (NEGATIVE) Influenza Type B Antigen Negative (NEGATIVE) O2 Saturation 91 % (92-99) Arterial Blood pH 7.29 (7.35-7.45) Arterial Blood pCO2 at Patient Temp 59 mmHg (35-46) Arterial Blood pO2 at Patient Temp 64 mmHg (65-108) Arterial Blood HCO3 28 mmol/L (21-28) Arterial Blood Base Excess 0 mmol/L (-3-3) FiO2 32 Glucose (Fingerstick) 191 mg/dL (70-99) Test 06/12/18 16:41 06/12/18 20:10 06/13/18 04:35 06/13/18 07:23 Glucose (Fingerstick) 202 mg/dL (70-99) 237 mg/dL (70-99) 82 mg/dL (70-99) Triglycerides Level 53 mg/dL (0-150) Cholesterol Level 108 mg/dL (0-200) LDL Cholesterol, Calculated 44 mg/dL (0-100) VLDL Cholesterol, Calculated 11 mg/dL (0-40) Non-HDL Cholesterol Calculated 55 mg/dL (0-129) HDL Cholesterol 53 mg/dL (40-60) Cholesterol/HDL Ratio 2.0 Laboratory Tests Test 06/12/18 13:17 06/12/18 16:41 06/12/18 20:10 06/13/18 04:35 Glucose (Fingerstick) 191 mg/dL (70-99) 202 mg/dL (70-99) 237 mg/dL (70-99) Triglycerides Level 53 mg/dL (0-150) Cholesterol Level 108 mg/dL (0-200) LDL Cholesterol, Calculated 44 mg/dL (0-100) VLDL Cholesterol, Calculated 11 mg/dL (0-40) Non-HDL Cholesterol Calculated 55 mg/dL (0-129) HDL Cholesterol 53 mg/dL (40-60) Cholesterol/HDL Ratio 2.0 Test 06/13/18 07:23 Glucose (Fingerstick) 82 mg/dL (70-99) Microbiology 06/12/18 Blood Culture - Preliminary, Resulted NO GROWTH AFTER 1 DAY Medications Current Medications Albuterol Sulfate (Ventolin Neb Soln) 2.5 mg STK-MED ONCE .ROUTE ; Start at 07:59; Stop 06/12/18 at 08:01; Status DC Sodium Chloride 1,000 ml @ 1,000 mls/hr 1X ONCE IV Last administered on at 09:00; Start 06/12/18 at 08:15; Stop 06/12/18 at 09:14; Status DC Albuterol Sulfate (Ventolin Neb Soln) 10 mg 1X ONCE CONT NEB Last administered on 06/12/18at 08:28; Start 06/12/18 at 08:30; Stop 06/12/18 at 08:31 ; Status DC Clonidine HCl (Catapres) 0.2 mg 1X ONCE PO Last administered on 06/12/18at 08: 57; Start 06/12/18 at 09:00; Stop 06/12/18 at 09:01; Status DC Furosemide (Lasix) 40 mg 1X STAT IVP Last administered on 06/12/18at 09:55; Start 06/12/18 at 09:42; Stop 06/12/18 at 09:43; Status DC Ceftriaxone Sodium (Rocephin) 1 gm 1X ONCE IVP Last administered on 06/12/18at 09:58; Start 06/12/18 at 10:00; Stop 06/12/18 at 10:01; Status DC Azithromycin 250 ml @ 250 mls/hr 1X ONCE IV Last administered on 06/12/18at 10 :34; Start 06/12/18 at 10:00; Stop 06/12/18 at 10:59; Status DC Albuterol/ Ipratropium (Duoneb) 3 ml RTQID NEB Last administered on 06/13/18at 07:30; Start 06/12/18 at 12:00; Stop 06/13/18 at 11:59 Labetalol HCl (Normodyne Iv Push) 20 mg 1X ONCE IVP ; Start 06/12/18 at 10:15; Stop 06/12/18 at 10:34; Status DC Amlodipine Besylate (Norvasc) 10 mg DAILY PO Last administered on 06/13/18 08: 24; Start 06/12/18 at 13:00 Aspirin (Ecotrin) 81 mg DAILY PO Last administered on 06/13/18 08:24; Start at 13:00 Atorvastatin Calcium (Lipitor) 40 mg HS PO Last administered on 06/12/18 20:48 ; Start 06/12/18 at 21:00 Carvedilol (Coreg) 12.5 mg BIDWMEALS PO Last administered on 06/12/18 14:08; Start 06/12/18 at 13:00; Stop 06/12/18 at 15:57; Status DC Oxybutynin Chloride (Ditropan) 5 mg BID PO Last administered on 06/13/18 08:24 ; Start 06/12/18 at 13:00 Sertraline HCl (Zoloft) 50 mg DAILY PO Last administered on 06/13/18 08:23; Start 06/12/18 at 13:00 Donepezil HCl (Aricept) 10 mg QHS PO Last administered on 06/12/18 20:49; Start 06/12/18 at 21:00 Non-Formulary Medication (Insulin Aspart (Novolog Flexpen)) TIDWMEALS SQ ; Start 06/12/18 at 17:00; Status UNV Insulin Glargine (Lantus) 40 units QHS SQ Last administered on 06/12/18 20:56 ; Start 06/12/18 at 21:00 Losartan Potassium (Cozaar) 100 mg DAILY PO Last administered on 06/13/18 08: 25; Start 06/12/18 at 13:00 Pioglitazone HCl (Actos) 30 mg DAILY PO Last administered on 06/13/18 08:24; Start 06/12/18 at 13:00 Insulin Human Lispro (HumaLOG) 0-7 UNITS TIDWMEALS SQ Last administered on 06/12 17:24; Start 06/12/18 at 13:00 Dextrose (Dextrose 50%-Water Syringe) 12.5 gm PRN Q15MIN PRN IV SEE COMMENTS; Start 06/12/18 at 12:45 Azithromycin 500 mg/Sodium Chloride 250 ml @ 250 mls/hr Q24H IV ; Start at 09:00 Ceftriaxone Sodium (Rocephin) 1 gm Q24H IVP Last administered on 06/13/18at 08: 51; Start 06/13/18 at 09:00 Lactobacillus Rhamnosus (Culturelle) 1 cap BID PO Last administered on at 08:29; Start 06/12/18 at 21:00 Hydralazine HCl (Apresoline Inj) 10 mg PRN Q4HRS PRN IVP ELEVATED BP, SEE COMMENTS; Start 06/12/18 at 16:00 Acetaminophen (Tylenol) 650 mg PRN Q6HRS PRN PO MILD PAIN Last administered on 06/12/18at 17:20; Start 06/12/18 at 16:45 Active Scripts Active Hydrocodone-Apap 5-325 (Hydrocodone Bit/Acetaminophen) 1 Each Tablet 1 Tab PO PRN Q4HRS PRN 28 Days Novolog Flexpen (Insulin Aspart) 100 Unit/1 Ml Insuln.pen 0 Units SQ TIDWMEALS 30 Days Reported Oxybutynin Chloride 5 Mg Tablet 10 Mg PO HS Levemir Flextouch (Insulin Detemir) 100 Unit/1 Ml Insuln.pen 40 Unit SQ HS Pioglitazone Hcl 30 Mg Tablet 30 Mg PO DAILY Zoloft (Sertraline Hcl) 50 Mg Tablet 1 Tab PO DAILY Carvedilol (Carvedilol) 12.5 Mg Tablet 12.5 Mg PO BIDWMEALS Atorvastatin Calcium 40 Mg Tablet 40 Mg PO HS Aspirin Ec (Aspirin) 81 Mg Tablet.dr 81 Mg PO Amlodipine Besylate 10 Mg Tablet 10 Mg PO DAILY Donepezil Hcl 10 Mg Tablet 10 Mg PO HS Losartan Potassium 100 Mg Tablet 100 Mg PO DAILY Vitals/I & O Vital Sign - Last 24 Hours 06/12/18 06/12/18 06/12/18 06/12/18 10:05 10:25 10:34 10:50 Pulse 64 62 62 62 Resp 17 17 16 B/P (MAP) 172/77 (108) 156/68 (97) 156/68 160/73 (102) Pulse Ox 97 98 98 O2 Delivery Nasal Cannula Nasal Cannula Nasal Cannula O2 Flow Rate 3.0 3.0 3.0 06/12/18 06/12/18 06/12/18 06/12/18 11:05 11:35 11:50 12:00 Pulse 70 60 58 Resp 25 16 16 B/P (MAP) 151/68 (95) 166/68 (100) 163/75 (104) Pulse Ox 98 98 O2 Delivery Nasal Cannula Nasal Cannula Nasal Cannula Nasal Cannula O2 Flow Rate 3.0 3.0 3.0 3.0 06/12/18 06/12/18 06/12/18 06/12/18 12:30 12:38 14:08 14:08 Temp 97.5 97.5 Pulse 68 68 68 Resp 18 B/P (MAP) 177/97 (123) 177/97 177/97 Pulse Ox 93 94 O2 Delivery Nasal Cannula Nasal Cannula O2 Flow Rate 3.0 2.5 06/12/18 06/12/18 06/12/18 06/12/18 14:09 15:16 16:48 19:00 Temp 97.5 98.0 97.5 98.0 Pulse 68 71 67 Resp 20 18 B/P (MAP) 177/97 162/89 (113) 139/53 (81) Pulse Ox 94 96 96 O2 Delivery Nasal Cannula BiPAP/CPAP Nasal Cannula O2 Flow Rate 3.0 3.0 06/12/18 06/12/18 06/12/18 06/13/18 19:32 21:40 23:00 01:38 Temp 97.7 97.7 Pulse 70 Resp 18 B/P (MAP) 141/62 (88) Pulse Ox 96 96 O2 Delivery BiPAP/CPAP BiPAP/CPAP Nasal Cannula BiPAP/CPAP O2 Flow Rate 3.0 06/13/18 06/13/18 06/13/18 06/13/18 03:00 07:15 07:30 07:31 Temp 97.9 98.5 97.9 98.5 Pulse 67 63 Resp 18 20 B/P (MAP) 108/75 (86) 176/71 (106) Pulse Ox 98 98 95 95 O2 Delivery Nasal Cannula BiPAP/CPAP Nasal Cannula BiPAP/CPAP O2 Flow Rate 3.0 3.0 2.5 06/13/18 06/13/18 08:24 08:25 Pulse 63 63 B/P (MAP) 176/71 176/71 Intake and Output 06/12/18 06/12/18 06/13/18 15:01 23:01 07:01 Intake Total 1120 ml 240 ml Output Total 4 ml Balance 1120 ml 236 ml MARIFER BOLAÑOS III DO Jun 13, 2018 10:09
--- NOTE | 2018-06-13 10:44 | PDOC ---
CARDIO Progress Notes Date and Time Date of Service 06/13/18 Time of Evaluation 0950 Subjective Subjective: No Chest Pain, No Palpitations, Other (more alert today. Breathing slightly improved.) Vitals Vitals Vital Signs Date Time Temp Pulse Resp B/P (MAP) Pulse Ox O2 Delivery O2 Flow Rate FiO2 06/13/18 08:25 63 176/71 06/13/18 07:31 95 BiPAP/CPAP 06/13/18 07:30 2.5 06/13/18 07:15 98.5 20 98.5 Weight Weight [ ] Input and Output Intake and Output Intake and Output 06/13/18 07:01 Intake Total 1360 ml Output Total 4 ml Balance 1356 ml Intake Oral 360 ml IV Total 1000 ml Output Urine Total 2 ml Stool Total 2 ml # Voids 2 Laboratory Labs Laboratory Tests Test 06/12/18 13:17 06/12/18 16:41 06/12/18 20:10 06/13/18 04:35 Glucose (Fingerstick) 191 mg/dL (70-99) 202 mg/dL (70-99) 237 mg/dL (70-99) Triglycerides Level 53 mg/dL (0-150) Cholesterol Level 108 mg/dL (0-200) LDL Cholesterol, Calculated 44 mg/dL (0-100) VLDL Cholesterol, Calculated 11 mg/dL (0-40) Non-HDL Cholesterol Calculated 55 mg/dL (0-129) HDL Cholesterol 53 mg/dL (40-60) Cholesterol/HDL Ratio 2.0 Test 06/13/18 07:23 Glucose (Fingerstick) 82 mg/dL (70-99) Microbiology Micro Microbiology 06/12/18 Blood Culture - Preliminary, Resulted NO GROWTH AFTER 1 DAY Physical Exam HEENT: Neck Supple W Full Motion Chest: Symmetric LUNGS: Other (crackles, on BiPAP) Heart: S1S2, RRR, murmurs (distant heart tones) Abdomen: Soft N/T Extremities: Other (1-2+ bilateral LE edema ) Neurology: alert, oriented, follow commands Assessment Assessment 1. Acute hypoxic respiratory failure secondary to PNA and mild acute HF. On Bipap 2. Mild acute diastolic HF; LVEF 55% per echo 3. Malignant hypertension; mildly labile 4. Hyperlipidemia 5. DM,II 6. CKD 7. ALEXYS with CPAP 8. PVD s/p right popliteal to peroneal artery bypass. Recommendations BMP Mild diuresis Add oral hydralazine for better BP control Ongoing treatment of PNA Supportive care CORRIE DUONG APRN Jun 13, 2018 10:44
--- NOTE | 2018-06-13 10:44 | PDOC ---
PULMONARY PROGRESS NOTES Subjective PT LESS SOA TODAY Vitals Vital Signs Date Time Temp Pulse Resp B/P (MAP) Pulse Ox O2 Delivery O2 Flow Rate FiO2 06/13/18 08:25 63 176/71 06/13/18 07:31 95 BiPAP/CPAP 06/13/18 07:30 2.5 06/13/18 07:15 98.5 20 98.5 ROS: No Nausea, No Chest Pain, No Abdominal Pain, No Increase Cough General: Alert, No acute distress Lungs: Crackles Cardiovascular: S1, S2 Abdomen: Soft, Non-tender Neuro Exam: Alert Extremities: No Edema Skin: Warm Labs Laboratory Tests Test 06/12/18 08:05 06/12/18 08:20 06/12/18 09:25 06/12/18 13:17 White Blood Count 9.4 x10^3/uL (4.0-11.0) Red Blood Count 3.78 x10^6/uL (3.50-5.40) Hemoglobin 11.7 g/dL (12.0-15.5) Hematocrit 35.5 % (36.0-47.0) Mean Corpuscular Volume 94 fL (79-100) Mean Corpuscular Hemoglobin 31 pg (25-35) Mean Corpuscular Hemoglobin Concent 33 g/dL (31-37) Red Cell Distribution Width 14.8 % (11.5-14.5) Platelet Count 177 x10^3/uL (140-400) Neutrophils (%) (Auto) 81 % (31-73) Lymphocytes (%) (Auto) 11 % (24-48) Monocytes (%) (Auto) 7 % (0-9) Eosinophils (%) (Auto) 1 % (0-3) Basophils (%) (Auto) 1 % (0-3) Neutrophils # (Auto) 7.6 x10^3uL (1.8-7.7) Lymphocytes # (Auto) 1.0 x10^3/uL (1.0-4.8) Monocytes # (Auto) 0.7 x10^3/uL (0.0-1.1) Eosinophils # (Auto) 0.1 x10^3/uL (0.0-0.7) Basophils # (Auto) 0.0 x10^3/uL (0.0-0.2) Sodium Level 146 mmol/L (136-145) Potassium Level 3.5 mmol/L (3.5-5.1) Chloride Level 105 mmol/L (98-107) Carbon Dioxide Level 31 mmol/L (21-32) Anion Gap 10 (6-14) Blood Urea Nitrogen 19 mg/dL (7-20) Creatinine 1.2 mg/dL (0.6-1.0) Estimated GFR (Cockcroft-Gault) 53.1 BUN/Creatinine Ratio 16 (6-20) Glucose Level 241 mg/dL (70-99) Lactic Acid Level 0.8 mmol/L (0.4-2.0) Calcium Level 9.9 mg/dL (8.5-10.1) Total Bilirubin 0.6 mg/dL (0.2-1.0) Aspartate Amino Transf (AST/SGOT) 19 U/L (15-37) Alanine Aminotransferase (ALT/SGPT) 24 U/L (14-59) Alkaline Phosphatase 113 U/L (46-116) Troponin I Quantitative 0.042 ng/mL (0.000-0.055) JK-Wbt-W-Type Natriuretic Peptide 1016 pg/mL (0-124) Total Protein 7.5 g/dL (6.4-8.2) Albumin 3.4 g/dL (3.4-5.0) Albumin/Globulin Ratio 0.8 (1.0-1.7) Influenza Type A Antigen Negative (NEGATIVE) Influenza Type B Antigen Negative (NEGATIVE) O2 Saturation 91 % (92-99) Arterial Blood pH 7.29 (7.35-7.45) Arterial Blood pCO2 at Patient Temp 59 mmHg (35-46) Arterial Blood pO2 at Patient Temp 64 mmHg (65-108) Arterial Blood HCO3 28 mmol/L (21-28) Arterial Blood Base Excess 0 mmol/L (-3-3) FiO2 32 Glucose (Fingerstick) 191 mg/dL (70-99) Test 06/12/18 16:41 06/12/18 20:10 06/13/18 04:35 06/13/18 07:23 Glucose (Fingerstick) 202 mg/dL (70-99) 237 mg/dL (70-99) 82 mg/dL (70-99) Triglycerides Level 53 mg/dL (0-150) Cholesterol Level 108 mg/dL (0-200) LDL Cholesterol, Calculated 44 mg/dL (0-100) VLDL Cholesterol, Calculated 11 mg/dL (0-40) Non-HDL Cholesterol Calculated 55 mg/dL (0-129) HDL Cholesterol 53 mg/dL (40-60) Cholesterol/HDL Ratio 2.0 Laboratory Tests Test 06/12/18 13:17 06/12/18 16:41 06/12/18 20:10 06/13/18 04:35 Glucose (Fingerstick) 191 mg/dL (70-99) 202 mg/dL (70-99) 237 mg/dL (70-99) Triglycerides Level 53 mg/dL (0-150) Cholesterol Level 108 mg/dL (0-200) LDL Cholesterol, Calculated 44 mg/dL (0-100) VLDL Cholesterol, Calculated 11 mg/dL (0-40) Non-HDL Cholesterol Calculated 55 mg/dL (0-129) HDL Cholesterol 53 mg/dL (40-60) Cholesterol/HDL Ratio 2.0 Test 06/13/18 07:23 Glucose (Fingerstick) 82 mg/dL (70-99) Medications Active Scripts Medications Dose Route/Sig Max Daily Dose Days Date Category Oxybutynin Chloride 5 Mg Tablet 10 Mg PO HS 06/12/18 Reported Levemir Flextouch (Insulin Detemir) 100 Unit/1 Ml Insuln.pen 40 Unit SQ HS 06/12/18 Reported Pioglitazone Hcl 30 Mg Tablet 30 Mg PO DAILY 06/12/18 Reported Zoloft (Sertraline Hcl) 50 Mg Tablet 1 Tab PO DAILY 06/12/18 Reported Hydrocodone-Apap 5-325 (Hydrocodone Bit/Acetaminophen) 1 Each Tablet 1 Tab PO PRN Q4HRS PRN 28 08/09/16 Rx Carvedilol (Carvedilol) 12.5 Mg Tablet 12.5 Mg PO BIDWMEALS 07/21/16 Reported Atorvastatin Calcium 40 Mg Tablet 40 Mg PO HS 07/21/16 Reported Novolog Flexpen (Insulin Aspart) 100 Unit/1 Ml Insuln.pen 0 Units SQ TIDWMEALS 30 03/17/16 Rx Aspirin Ec (Aspirin) 81 Mg Tablet.dr 81 Mg PO 03/14/16 Reported Amlodipine Besylate 10 Mg Tablet 10 Mg PO DAILY 03/14/16 Reported Donepezil Hcl 10 Mg Tablet 10 Mg PO HS 03/14/16 Reported Losartan Potassium 100 Mg Tablet 100 Mg PO DAILY 07/24/13 Reported Impression . IMPRESSION: 1. Acute hypercapnic hypoxemic respiratory failure. 2. Abnormal x-ray compatible with pneumonia, possibly gram negative. 3. Generalized weakness. 4. Renal insufficiency. 5. Elevated BNP. 6. Obstructive sleep apnea. 7. Suspect secondary pulmonary hypertension. 8. Suspect right-sided heart failure. 9. NEGATIVE DVT IMPRESSION: No sonographic evidence of acute DVT of the bilateral lower extremity deep veins. Plan . WILL CONTINUE THE SAME WILL NEED REHAB OUT PT SLEEP STUDY D/W SISTER AND PT ALLEN CHEEK MD Jun 13, 2018 10:44
[2018-06-13 11:18] VITALS: BP 165/56
--- NOTE | 2018-06-13 12:19 | NUR ---
SW following pt for anticipated dc needs. Chart reviewed. Pt lives at home with family and is currently on 4L. PT/OT is pending. SW will await for PT/OT recommendation to evaluate skilled needs. SW will continue to follow.
[2018-06-13] MEDS: hydrALAZINE 20 MG/ML VIAL. IVP PRN (12:26)
[2018-06-13 15:01] VITALS: BP 152/57
[2018-06-13] MEDS ORDERED: FUROSEMIDE 20 MG/2 ML VIAL. IVP ONE (15:15)
[2018-06-13 15:54] LABS: CALCIUM 9.2 mg/dL (8.5-10.1); CREATININE 1.4 mg/dL (0.6-1.0); GFR 44.5
[2018-06-13] MEDS ORDERED: POTASSIUM CHLORIDE 20 MEQ TABLET.ER. PO ONE (17:30)
--- NOTE | 2018-06-13 18:16 | NUR ---
Patient was admitted for CHF and pneumonia. She tolerated transfer from bed to chair, on O2 at 3LPM per nasal cannula, O2 sats at 97%. She's awake alert, oriented. No new complaints during the entire shift. The patient is sitting on the chair, call light within reach. We'll continue to monitor.
[2018-06-13 19:00] VITALS: BP 161/57
[2018-06-13] MEDS: DONEPEZIL HCL 10 MG TABLET. PO SCH (21:37)
[2018-06-13] MEDS: ATORVASTATIN CALCIUM 40 MG TABLET. PO SCH (21:37)
[2018-06-13] MEDS: INSULIN GLARGINE 300 UNITS/3 ML INSULN.PEN. SQ SCH (21:43)
[2018-06-13 22:57] VITALS: BP 144/78
[2018-06-14] MEDS: hydrALAZINE 20 MG/ML VIAL. IVP PRN (02:51)
[2018-06-14 02:53] VITALS: BP 164/67
[2018-06-14] MEDS: IPRATRPIUM/ALBUTEROL 0.5/2.5MG 3 ML NEBU. NEB SCH ×4 (05:20→21:50)
[2018-06-14 05:58] LABS: BASO % 0 % (0-3); EOS # 0.2 x10^3/uL (0.0-0.7); EOS % 2 % (0-3); HEMATOCRIT 33.8 % (36.0-47.0); HEMOGLOBIN 10.9 g/dL (12.0-15.5); LYMPH # 1.3 x10^3/uL (1.0-4.8); LYMPH % 13 % (24-48); MEAN CORPUSCULAR HEMOGLOBIN 30 pg (25-35); MEAN CORPUSCULAR HGB CONC 32 g/dL (31-37); MEAN CORPUSCULAR VOLUME 94 fL (79-100); MONO # 0.8 x10^3/uL (0.0-1.1); MONO % 9 % (0-9); NEUT % 76 % (31-73); PLATELET COUNT 176 x10^3/uL (140-400); RED BLOOD COUNT 3.59 x10^6/uL (3.50-5.40); RED CELL DISTRIBUTION WIDTH 14.8 % (11.5-14.5); WHITE BLOOD COUNT 9.3 x10^3/uL (4.0-11.0)
[2018-06-14 06:18] LABS: CALCIUM 9.5 mg/dL (8.5-10.1); CREATININE 1.4 mg/dL (0.6-1.0); GFR 44.5; POTASSIUM 3.1 mmol/L (3.5-5.1)
[2018-06-14 07:00] VITALS: BP 192/70
[2018-06-14] MEDS: INSULIN LISPRO 300 UNITS/3 ML INSULN.PEN. SQ SCH ×3 (08:00→16:30)
[2018-06-14] MEDS: cefTRIAXone IV Push 1 GM VIAL. IVP SCH (08:37)
[2018-06-14] MEDS: amLODIPine BESYLATE 10 MG TABLET PO SCH (08:38)
[2018-06-14] MEDS: SERTRALINE 50 MG TABLET. PO SCH (08:38)
[2018-06-14] MEDS: LOSARTAN POTASSIUM 50 MG TABLET. PO SCH (08:38)
[2018-06-14] MEDS: PIOGLITAZONE 15 MG TABLET. PO SCH (08:38)
[2018-06-14] MEDS: ASPIRIN ENTERIC COATED 81 MG TABLET.DR. PO SCH (08:39)
[2018-06-14] MEDS: OXYBUTYNIN CHLORIDE 5 MG TABLET PO SCH ×2 (08:39→21:03)
[2018-06-14] MEDS: LACTOBACILLUS RHAMNOSUS GG 1 CAPSULE. PO SCH ×2 (08:39→21:03)
[2018-06-14] MEDS: AZITHROMYCIN 500 MG in IV NORMAL SALINE 250ML 250 ML IV SCH (08:39)
--- NOTE | 2018-06-14 09:54 | PDOC ---
PULMONARY PROGRESS NOTES Subjective PT LESS SOA TODAY Vitals Vital Signs Date Time Temp Pulse Resp B/P (MAP) Pulse Ox O2 Delivery O2 Flow Rate FiO2 06/14/18 08:39 78 192/70 06/14/18 07:00 98.2 18 97 Nasal Cannula 3.0 98.2 ROS: No Nausea, No Chest Pain, No Abdominal Pain, No Increase Cough General: Alert, No acute distress Lungs: Crackles Cardiovascular: S1, S2 Abdomen: Soft, Non-tender Neuro Exam: Alert Extremities: No Edema Skin: Warm Labs Laboratory Tests Test 06/12/18 13:17 06/12/18 16:41 06/12/18 20:10 06/13/18 04:35 Glucose (Fingerstick) 191 mg/dL (70-99) 202 mg/dL (70-99) 237 mg/dL (70-99) Sodium Level 144 mmol/L (136-145) Potassium Level 3.0 mmol/L (3.5-5.1) Chloride Level 107 mmol/L (98-107) Carbon Dioxide Level 30 mmol/L (21-32) Anion Gap 7 (6-14) Blood Urea Nitrogen 22 mg/dL (7-20) Creatinine 1.4 mg/dL (0.6-1.0) Estimated GFR (Cockcroft-Gault) 44.5 Glucose Level 108 mg/dL (70-99) Calcium Level 9.2 mg/dL (8.5-10.1) Magnesium Level 1.7 mg/dL (1.8-2.4) Triglycerides Level 53 mg/dL (0-150) Cholesterol Level 108 mg/dL (0-200) LDL Cholesterol, Calculated 44 mg/dL (0-100) VLDL Cholesterol, Calculated 11 mg/dL (0-40) Non-HDL Cholesterol Calculated 55 mg/dL (0-129) HDL Cholesterol 53 mg/dL (40-60) Cholesterol/HDL Ratio 2.0 Test 06/13/18 07:23 06/13/18 11:26 06/13/18 16:50 06/13/18 20:47 Glucose (Fingerstick) 82 mg/dL (70-99) 136 mg/dL (70-99) 148 mg/dL (70-99) 180 mg/dL (70-99) Test 06/14/18 05:20 06/14/18 05:25 06/14/18 07:06 White Blood Count 9.3 x10^3/uL (4.0-11.0) Red Blood Count 3.59 x10^6/uL (3.50-5.40) Hemoglobin 10.9 g/dL (12.0-15.5) Hematocrit 33.8 % (36.0-47.0) Mean Corpuscular Volume 94 fL (79-100) Mean Corpuscular Hemoglobin 30 pg (25-35) Mean Corpuscular Hemoglobin Concent 32 g/dL (31-37) Red Cell Distribution Width 14.8 % (11.5-14.5) Platelet Count 176 x10^3/uL (140-400) Neutrophils (%) (Auto) 76 % (31-73) Lymphocytes (%) (Auto) 13 % (24-48) Monocytes (%) (Auto) 9 % (0-9) Eosinophils (%) (Auto) 2 % (0-3) Basophils (%) (Auto) 0 % (0-3) Neutrophils # (Auto) 7.0 x10^3uL (1.8-7.7) Lymphocytes # (Auto) 1.3 x10^3/uL (1.0-4.8) Monocytes # (Auto) 0.8 x10^3/uL (0.0-1.1) Eosinophils # (Auto) 0.2 x10^3/uL (0.0-0.7) Basophils # (Auto) 0.0 x10^3/uL (0.0-0.2) Sodium Level 143 mmol/L (136-145) Potassium Level 3.1 mmol/L (3.5-5.1) Chloride Level 105 mmol/L (98-107) Carbon Dioxide Level 31 mmol/L (21-32) Anion Gap 7 (6-14) Blood Urea Nitrogen 22 mg/dL (7-20) Creatinine 1.4 mg/dL (0.6-1.0) Estimated GFR (Cockcroft-Gault) 44.5 Glucose Level 88 mg/dL (70-99) Calcium Level 9.5 mg/dL (8.5-10.1) Glucose (Fingerstick) 87 mg/dL (70-99) Laboratory Tests Test 06/13/18 11:26 1/31/19 16:50 06/13/18 20:47 06/14/18 05:20 Glucose (Fingerstick) 136 mg/dL (70-99) 148 mg/dL (70-99) 180 mg/dL (70-99) White Blood Count 9.3 x10^3/uL (4.0-11.0) Red Blood Count 3.59 x10^6/uL (3.50-5.40) Hemoglobin 10.9 g/dL (12.0-15.5) Hematocrit 33.8 % (36.0-47.0) Mean Corpuscular Volume 94 fL (79-100) Mean Corpuscular Hemoglobin 30 pg (25-35) Mean Corpuscular Hemoglobin Concent 32 g/dL (31-37) Red Cell Distribution Width 14.8 % (11.5-14.5) Platelet Count 176 x10^3/uL (140-400) Neutrophils (%) (Auto) 76 % (31-73) Lymphocytes (%) (Auto) 13 % (24-48) Monocytes (%) (Auto) 9 % (0-9) Eosinophils (%) (Auto) 2 % (0-3) Basophils (%) (Auto) 0 % (0-3) Neutrophils # (Auto) 7.0 x10^3uL (1.8-7.7) Lymphocytes # (Auto) 1.3 x10^3/uL (1.0-4.8) Monocytes # (Auto) 0.8 x10^3/uL (0.0-1.1) Eosinophils # (Auto) 0.2 x10^3/uL (0.0-0.7) Basophils # (Auto) 0.0 x10^3/uL (0.0-0.2) Test 06/14/18 05:25 06/14/18 07:06 Sodium Level 143 mmol/L (136-145) Potassium Level 3.1 mmol/L (3.5-5.1) Chloride Level 105 mmol/L (98-107) Carbon Dioxide Level 31 mmol/L (21-32) Anion Gap 7 (6-14) Blood Urea Nitrogen 22 mg/dL (7-20) Creatinine 1.4 mg/dL (0.6-1.0) Estimated GFR (Cockcroft-Gault) 44.5 Glucose Level 88 mg/dL (70-99) Calcium Level 9.5 mg/dL (8.5-10.1) Glucose (Fingerstick) 87 mg/dL (70-99) Medications Active Scripts Medications Dose Route/Sig Max Daily Dose Days Date Category Oxybutynin Chloride 5 Mg Tablet 10 Mg PO HS 06/12/18 Reported Levemir Flextouch (Insulin Detemir) 100 Unit/1 Ml Insuln.pen 40 Unit SQ HS 06/12/18 Reported Pioglitazone Hcl 30 Mg Tablet 30 Mg PO DAILY 06/12/18 Reported Zoloft (Sertraline Hcl) 50 Mg Tablet 1 Tab PO DAILY 06/12/18 Reported Hydrocodone-Apap 5-325 (Hydrocodone Bit/Acetaminophen) 1 Each Tablet 1 Tab PO PRN Q4HRS PRN 28 08/09/16 Rx Carvedilol (Carvedilol) 12.5 Mg Tablet 12.5 Mg PO BIDWMEALS 07/21/16 Reported Atorvastatin Calcium 40 Mg Tablet 40 Mg PO HS 07/21/16 Reported Novolog Flexpen (Insulin Aspart) 100 Unit/1 Ml Insuln.pen 0 Units SQ TIDWMEALS 30 03/17/16 Rx Aspirin Ec (Aspirin) 81 Mg Tablet.dr 81 Mg PO 03/14/16 Reported Amlodipine Besylate 10 Mg Tablet 10 Mg PO DAILY 03/14/16 Reported Donepezil Hcl 10 Mg Tablet 10 Mg PO HS 03/14/16 Reported Losartan Potassium 100 Mg Tablet 100 Mg PO DAILY 07/24/13 Reported Impression . IMPRESSION: 1. Acute hypercapnic hypoxemic respiratory failure. 2. Abnormal x-ray compatible with pneumonia, possibly gram negative. 3. Generalized weakness. 4. Renal insufficiency. 5. Elevated BNP. 6. Obstructive sleep apnea. 7. Suspect secondary pulmonary hypertension. 8. Suspect right-sided heart failure. 9. NEGATIVE DVT IMPRESSION: No sonographic evidence of acute DVT of the bilateral lower extremity deep veins. Plan . D/C SOON [place] WILL NEED REHAB SHE IS VERY WEAK WILL CONTINUE THE SAME WILL NEED REHAB OUT PT SLEEP STUDY D/W SISTER AND PT ALLEN CHEEK MD Jun 14, 2018 09:54
--- NOTE | 2018-06-14 10:48 | PDOC ---
PROGRESS NOTES Chief Complaint Chief Complaint SOA, CHF exacerbation History of Present Illness History of Present Illness Patient was seen and examined this AM. She complains of difficulty sleeping. Sitting comfortably in chair. Vitals Vitals Vital Signs Date Time Temp Pulse Resp B/P (MAP) Pulse Ox O2 Delivery O2 Flow Rate FiO2 06/14/18 08:39 78 192/70 06/14/18 07:00 98.2 18 97 Nasal Cannula 3.0 98.2 Physical Exam General: Alert, Oriented X3, Cooperative, mild distress Heart: Regular rate, Normal S1, Normal S2 Lungs: Wheezing Abdomen: Soft, No tenderness Extremities: Normal pulses, Other (2+ bilateral LE edema ) Skin: No breakdown, No significant lesion Labs LABS Laboratory Tests Test 06/13/18 11:26 06/13/18 16:50 06/13/18 20:47 06/14/18 05:20 Glucose (Fingerstick) 136 mg/dL (70-99) 148 mg/dL (70-99) 180 mg/dL (70-99) White Blood Count 9.3 x10^3/uL (4.0-11.0) Red Blood Count 3.59 x10^6/uL (3.50-5.40) Hemoglobin 10.9 g/dL (12.0-15.5) Hematocrit 33.8 % (36.0-47.0) Mean Corpuscular Volume 94 fL (79-100) Mean Corpuscular Hemoglobin 30 pg (25-35) Mean Corpuscular Hemoglobin Concent 32 g/dL (31-37) Red Cell Distribution Width 14.8 % (11.5-14.5) Platelet Count 176 x10^3/uL (140-400) Neutrophils (%) (Auto) 76 % (31-73) Lymphocytes (%) (Auto) 13 % (24-48) Monocytes (%) (Auto) 9 % (0-9) Eosinophils (%) (Auto) 2 % (0-3) Basophils (%) (Auto) 0 % (0-3) Neutrophils # (Auto) 7.0 x10^3uL (1.8-7.7) Lymphocytes # (Auto) 1.3 x10^3/uL (1.0-4.8) Monocytes # (Auto) 0.8 x10^3/uL (0.0-1.1) Eosinophils # (Auto) 0.2 x10^3/uL (0.0-0.7) Basophils # (Auto) 0.0 x10^3/uL (0.0-0.2) Test 06/14/18 05:25 06/14/18 07:06 Sodium Level 143 mmol/L (136-145) Potassium Level 3.1 mmol/L (3.5-5.1) Chloride Level 105 mmol/L (98-107) Carbon Dioxide Level 31 mmol/L (21-32) Anion Gap 7 (6-14) Blood Urea Nitrogen 22 mg/dL (7-20) Creatinine 1.4 mg/dL (0.6-1.0) Estimated GFR (Cockcroft-Gault) 44.5 Glucose Level 88 mg/dL (70-99) Calcium Level 9.5 mg/dL (8.5-10.1) Glucose (Fingerstick) 87 mg/dL (70-99) Review of Systems Review of Systems Heart: denies chest pain Lungs: denies soa Integument: denies rashes Assessment and Plan Assessmemt and Plan Assessment: 1. CHF exacerbation 2. HTN 3. Acute respiratory failure w/ hypoxia 4. ALEXYS 5. Pneumonia Plan: 1. BiPap PRN 2. Antibiotics 3. BP control 4. Continue to Diurese 5. Aggressive PT/OT 6. Labs 7. Home meds 8. +/- steroids 9. Offered sleeping aid - refused 10. Discharge Disposition Pending Comment Review of Relevant I have reviewed the following items joel (where applicable) has been applied. Labs Laboratory Tests Test 06/12/18 13:17 06/12/18 16:41 06/12/18 20:10 06/13/18 04:35 Glucose (Fingerstick) 191 mg/dL (70-99) 202 mg/dL (70-99) 237 mg/dL (70-99) Sodium Level 144 mmol/L (136-145) Potassium Level 3.0 mmol/L (3.5-5.1) Chloride Level 107 mmol/L (98-107) Carbon Dioxide Level 30 mmol/L (21-32) Anion Gap 7 (6-14) Blood Urea Nitrogen 22 mg/dL (7-20) Creatinine 1.4 mg/dL (0.6-1.0) Estimated GFR (Cockcroft-Gault) 44.5 Glucose Level 108 mg/dL (70-99) Calcium Level 9.2 mg/dL (8.5-10.1) Magnesium Level 1.7 mg/dL (1.8-2.4) Triglycerides Level 53 mg/dL (0-150) Cholesterol Level 108 mg/dL (0-200) LDL Cholesterol, Calculated 44 mg/dL (0-100) VLDL Cholesterol, Calculated 11 mg/dL (0-40) Non-HDL Cholesterol Calculated 55 mg/dL (0-129) HDL Cholesterol 53 mg/dL (40-60) Cholesterol/HDL Ratio 2.0 Test 06/13/18 07:23 06/13/18 11:26 06/13/18 16:50 06/13/18 20:47 Glucose (Fingerstick) 82 mg/dL (70-99) 136 mg/dL (70-99) 148 mg/dL (70-99) 180 mg/dL (70-99) Test 06/14/18 05:20 06/14/18 05:25 06/14/18 07:06 White Blood Count 9.3 x10^3/uL (4.0-11.0) Red Blood Count 3.59 x10^6/uL (3.50-5.40) Hemoglobin 10.9 g/dL (12.0-15.5) Hematocrit 33.8 % (36.0-47.0) Mean Corpuscular Volume 94 fL (79-100) Mean Corpuscular Hemoglobin 30 pg (25-35) Mean Corpuscular Hemoglobin Concent 32 g/dL (31-37) Red Cell Distribution Width 14.8 % (11.5-14.5) Platelet Count 176 x10^3/uL (140-400) Neutrophils (%) (Auto) 76 % (31-73) Lymphocytes (%) (Auto) 13 % (24-48) Monocytes (%) (Auto) 9 % (0-9) Eosinophils (%) (Auto) 2 % (0-3) Basophils (%) (Auto) 0 % (0-3) Neutrophils # (Auto) 7.0 x10^3uL (1.8-7.7) Lymphocytes # (Auto) 1.3 x10^3/uL (1.0-4.8) Monocytes # (Auto) 0.8 x10^3/uL (0.0-1.1) Eosinophils # (Auto) 0.2 x10^3/uL (0.0-0.7) Basophils # (Auto) 0.0 x10^3/uL (0.0-0.2) Sodium Level 143 mmol/L (136-145) Potassium Level 3.1 mmol/L (3.5-5.1) Chloride Level 105 mmol/L (98-107) Carbon Dioxide Level 31 mmol/L (21-32) Anion Gap 7 (6-14) Blood Urea Nitrogen 22 mg/dL (7-20) Creatinine 1.4 mg/dL (0.6-1.0) Estimated GFR (Cockcroft-Gault) 44.5 Glucose Level 88 mg/dL (70-99) Calcium Level 9.5 mg/dL (8.5-10.1) Glucose (Fingerstick) 87 mg/dL (70-99) Laboratory Tests Test 06/13/18 11:26 06/13/18 16:50 06/13/18 20:47 06/14/18 05:20 Glucose (Fingerstick) 136 mg/dL (70-99) 148 mg/dL (70-99) 180 mg/dL (70-99) White Blood Count 9.3 x10^3/uL (4.0-11.0) Red Blood Count 3.59 x10^6/uL (3.50-5.40) Hemoglobin 10.9 g/dL (12.0-15.5) Hematocrit 33.8 % (36.0-47.0) Mean Corpuscular Volume 94 fL (79-100) Mean Corpuscular Hemoglobin 30 pg (25-35) Mean Corpuscular Hemoglobin Concent 32 g/dL (31-37) Red Cell Distribution Width 14.8 % (11.5-14.5) Platelet Count 176 x10^3/uL (140-400) Neutrophils (%) (Auto) 76 % (31-73) Lymphocytes (%) (Auto) 13 % (24-48) Monocytes (%) (Auto) 9 % (0-9) Eosinophils (%) (Auto) 2 % (0-3) Basophils (%) (Auto) 0 % (0-3) Neutrophils # (Auto) 7.0 x10^3uL (1.8-7.7) Lymphocytes # (Auto) 1.3 x10^3/uL (1.0-4.8) Monocytes # (Auto) 0.8 x10^3/uL (0.0-1.1) Eosinophils # (Auto) 0.2 x10^3/uL (0.0-0.7) Basophils # (Auto) 0.0 x10^3/uL (0.0-0.2) Test 06/14/18 05:25 06/14/18 07:06 Sodium Level 143 mmol/L (136-145) Potassium Level 3.1 mmol/L (3.5-5.1) Chloride Level 105 mmol/L (98-107) Carbon Dioxide Level 31 mmol/L (21-32) Anion Gap 7 (6-14) Blood Urea Nitrogen 22 mg/dL (7-20) Creatinine 1.4 mg/dL (0.6-1.0) Estimated GFR (Cockcroft-Gault) 44.5 Glucose Level 88 mg/dL (70-99) Calcium Level 9.5 mg/dL (8.5-10.1) Glucose (Fingerstick) 87 mg/dL (70-99) Microbiology 06/12/18 Blood Culture - Preliminary, Resulted NO GROWTH AFTER 2 DAYS Medications Current Medications Albuterol Sulfate (Ventolin Neb Soln) 2.5 mg STK-MED ONCE .ROUTE ; Start at 07:59; Stop 06/12/18 at 08:01; Status DC Sodium Chloride 1,000 ml @ 1,000 mls/hr 1X ONCE IV Last administered on at 09:00; Start 06/12/18 at 08:15; Stop 06/12/18 at 09:14; Status DC Albuterol Sulfate (Ventolin Neb Soln) 10 mg 1X ONCE CONT NEB Last administered on 06/12/18at 08:28; Start 06/12/18 at 08:30; Stop 06/12/18 at 08:31 ; Status DC Clonidine HCl (Catapres) 0.2 mg 1X ONCE PO Last administered on 06/12/18at 08: 57; Start 06/12/18 at 09:00; Stop 06/12/18 at 09:01; Status DC Furosemide (Lasix) 40 mg 1X STAT IVP Last administered on 06/12/18at 09:55; Start 06/12/18 at 09:42; Stop 06/12/18 at 09:43; Status DC Ceftriaxone Sodium (Rocephin) 1 gm 1X ONCE IVP Last administered on 06/12/18at 09:58; Start 06/12/18 at 10:00; Stop 06/12/18 at 10:01; Status DC Azithromycin 250 ml @ 250 mls/hr 1X ONCE IV Last administered on 06/12/18at 10 :34; Start 06/12/18 at 10:00; Stop 06/12/18 at 10:59; Status DC Albuterol/ Ipratropium (Duoneb) 3 ml RTQID NEB Last administered on 06/13/18at 15:09; Start 06/12/18 at 12:00; Stop 06/13/18 at 11:59; Status DC Labetalol HCl (Normodyne Iv Push) 20 mg 1X ONCE IVP ; Start 06/12/18 at 10:15; Stop 06/12/18 at 10:34; Status DC Amlodipine Besylate (Norvasc) 10 mg DAILY PO Last administered on 06/14/18 08: 38; Start 06/12/18 at 13:00 Aspirin (Ecotrin) 81 mg DAILY PO Last administered on 06/14/18 08:39; Start at 13:00 Atorvastatin Calcium (Lipitor) 40 mg HS PO Last administered on 06/13/18at 21:37 ; Start 06/12/18 at 21:00 Carvedilol (Coreg) 12.5 mg BIDWMEALS PO Last administered on 06/12/18at 14:08; Start 06/12/18 at 13:00; Stop 06/12/18 at 15:57; Status DC Oxybutynin Chloride (Ditropan) 5 mg BID PO Last administered on 06/14/18 08:39 ; Start 06/12/18 at 13:00 Sertraline HCl (Zoloft) 50 mg DAILY PO Last administered on 06/14/18 08:38; Start 06/12/18 at 13:00 Donepezil HCl (Aricept) 10 mg QHS PO Last administered on 06/13/18at 21:37; Start 06/12/18 at 21:00 Non-Formulary Medication (Insulin Aspart (Novolog Flexpen)) TIDWMEALS SQ ; Start 06/12/18 at 17:00; Status UNV Insulin Glargine (Lantus) 40 units QHS SQ Last administered on 06/13/18at 21:43 ; Start 06/12/18 at 21:00 Losartan Potassium (Cozaar) 100 mg DAILY PO Last administered on 06/14/18 08:38 ; Start 06/12/18 at 13:00 Pioglitazone HCl (Actos) 30 mg DAILY PO Last administered on 06/14/18 08:38; Start 06/12/18 at 13:00 Insulin Human Lispro (HumaLOG) 0-7 UNITS TIDWMEALS SQ Last administered on 06/12 17:24; Start 06/12/18 at 13:00 Dextrose (Dextrose 50%-Water Syringe) 12.5 gm PRN Q15MIN PRN IV SEE COMMENTS; Start 06/12/18 at 12:45 Azithromycin 500 mg/Sodium Chloride 250 ml @ 250 mls/hr Q24H IV Last administered on 06/14/18 08:39; Start 06/13/18 at 09:00 Ceftriaxone Sodium (Rocephin) 1 gm Q24H IVP Last administered on 06/14/18 08:37 ; Start 06/13/18 at 09:00 Lactobacillus Rhamnosus (Culturelle) 1 cap BID PO Last administered on 08:39; Start 06/12/18 at 21:00 Hydralazine HCl (Apresoline Inj) 10 mg PRN Q4HRS PRN IVP ELEVATED BP, SEE COMMENTS Last administered on 06/14/18 02:51; Start 06/12/18 at 16:00 Acetaminophen (Tylenol) 650 mg PRN Q6HRS PRN PO MILD PAIN Last administered on 06/12/18 17:20; Start 06/12/18 at 16:45 Furosemide (Lasix) 20 mg 1X ONCE IVP Last administered on 06/13/18 15:23; Start 06/13/18 at 15:15; Stop 06/13/18 at 15:16; Status DC Hydralazine HCl (Apresoline) 50 mg BID PO Last administered on 2/1/19at 08:39; Start 06/13/18 at 21:00 Albuterol/ Ipratropium (Duoneb) 3 ml RTQID NEB Last administered on 06/14/18at 05 :20; Start 06/13/18 at 17:00 Potassium Chloride (Klor-Con) 40 meq 1X ONCE PO Last administered on at 17:26; Start 06/13/18 at 17:30; Stop 06/13/18 at 17:31; Status DC Active Scripts Active Hydrocodone-Apap 5-325 (Hydrocodone Bit/Acetaminophen) 1 Each Tablet 1 Tab PO PRN Q4HRS PRN 28 Days Novolog Flexpen (Insulin Aspart) 100 Unit/1 Ml Insuln.pen 0 Units SQ TIDWMEALS 30 Days Reported Oxybutynin Chloride 5 Mg Tablet 10 Mg PO HS Levemir Flextouch (Insulin Detemir) 100 Unit/1 Ml Insuln.pen 40 Unit SQ HS Pioglitazone Hcl 30 Mg Tablet 30 Mg PO DAILY Zoloft (Sertraline Hcl) 50 Mg Tablet 1 Tab PO DAILY Carvedilol (Carvedilol) 12.5 Mg Tablet 12.5 Mg PO BIDWMEALS Atorvastatin Calcium 40 Mg Tablet 40 Mg PO HS Aspirin Ec (Aspirin) 81 Mg Tablet.dr 81 Mg PO Amlodipine Besylate 10 Mg Tablet 10 Mg PO DAILY Donepezil Hcl 10 Mg Tablet 10 Mg PO HS Losartan Potassium 100 Mg Tablet 100 Mg PO DAILY Vitals/I & O Vital Sign - Last 24 Hours 06/13/18 06/13/18 06/13/18 06/13/18 11:18 11:29 12:26 15:01 Temp 98.9 97.9 98.9 97.9 Pulse 68 68 73 Resp 20 18 B/P (MAP) 165/56 (92) 165/56 152/57 (88) Pulse Ox 96 96 O2 Delivery BiPAP/CPAP BiPAP/CPAP Nasal Cannula O2 Flow Rate 3.0 3.0 06/13/18 06/13/18 06/13/18 06/13/18 15:14 19:00 19:48 20:01 Temp 98.7 98.7 Pulse 72 Resp 18 B/P (MAP) 161/57 (91) Pulse Ox 96 94 O2 Delivery Nasal Cannula Nasal Cannula Bi-pap Nasal Cannula O2 Flow Rate 3.5 3.0 3.0 3.5 06/13/18 06/13/18 06/14/18 06/14/18 21:38 22:57 02:51 02:53 Temp 98.3 98.4 98.3 98.4 Pulse 72 74 74 69 Resp 18 18 B/P (MAP) 161/57 144/78 (100) 164/67 164/67 (99) Pulse Ox 95 96 O2 Delivery Nasal Cannula Nasal Cannula O2 Flow Rate 3.0 3.0 06/14/18 06/14/18 06/14/18 06/14/18 05:20 07:00 08:38 08:38 Temp 98.2 98.2 Pulse 78 78 78 Resp 18 B/P (MAP) 192/70 (110) 192/70 192/70 Pulse Ox 94 97 O2 Delivery Nasal Cannula Nasal Cannula O2 Flow Rate 3.5 3.0 06/14/18 08:39 Pulse 78 B/P (MAP) 192/70 Intake and Output 06/13/18 06/13/18 06/14/18 15:01 23:01 07:01 Intake Total 600 ml 240 ml Output Total 2 ml Balance 598 ml 240 ml MARIFER BOLAÑOS III DO Jun 14, 2018 10:48
[2018-06-14 11:00] VITALS: BP 134/61
[2018-06-14] MEDS ORDERED: FUROSEMIDE 20 MG/2 ML VIAL. IVP ONE (14:15)
--- NOTE | 2018-06-14 14:21 | NUR ---
SW following pt. PT/OT recommends SNU. Discussed with pt and pt's sister, Wing, via phone: [phone]. SW extensively discussed SNU options and insurance coverage. Pt and sister declined HCR and PP. [facility] provided a list of SNU in [facility]. Pt's sister reported she will visit some of the facilities and notify SW with a decision. Pt and sister aware insurance will have to approve SNU before dc. JACE SAMAYOA. [place] will continue to follow.
--- NOTE | 2018-06-14 14:23 | PDOC ---
CARDIO Progress Notes Date and Time Date of Service 06/14/2018 Time of Evaluation 1400 Subjective Subjective: No Chest Pain, No Palpitations, Other (Still has SOA but a little better) Vitals Vitals Vital Signs Date Time Temp Pulse Resp B/P (MAP) Pulse Ox O2 Delivery O2 Flow Rate FiO2 06/14/18 11:06 97 Nasal Cannula 3.5 06/14/18 11:00 98.3 88 18 134/61 (85) 98.3 Weight Weight [ ] Input and Output Intake and Output Intake and Output 06/14/18 07:01 Intake Total 840 ml Output Total 2 ml Balance 838 ml Intake Oral 840 ml Output Urine Total 2 ml # Voids 5 Laboratory Labs Laboratory Tests Test 06/13/18 16:50 06/13/18 20:47 06/14/18 05:20 06/14/18 05:25 Glucose (Fingerstick) 148 mg/dL (70-99) 180 mg/dL (70-99) White Blood Count 9.3 x10^3/uL (4.0-11.0) Red Blood Count 3.59 x10^6/uL (3.50-5.40) Hemoglobin 10.9 g/dL (12.0-15.5) Hematocrit 33.8 % (36.0-47.0) Mean Corpuscular Volume 94 fL (79-100) Mean Corpuscular Hemoglobin 30 pg (25-35) Mean Corpuscular Hemoglobin Concent 32 g/dL (31-37) Red Cell Distribution Width 14.8 % (11.5-14.5) Platelet Count 176 x10^3/uL (140-400) Neutrophils (%) (Auto) 76 % (31-73) Lymphocytes (%) (Auto) 13 % (24-48) Monocytes (%) (Auto) 9 % (0-9) Eosinophils (%) (Auto) 2 % (0-3) Basophils (%) (Auto) 0 % (0-3) Neutrophils # (Auto) 7.0 x10^3uL (1.8-7.7) Lymphocytes # (Auto) 1.3 x10^3/uL (1.0-4.8) Monocytes # (Auto) 0.8 x10^3/uL (0.0-1.1) Eosinophils # (Auto) 0.2 x10^3/uL (0.0-0.7) Basophils # (Auto) 0.0 x10^3/uL (0.0-0.2) Sodium Level 143 mmol/L (136-145) Potassium Level 3.1 mmol/L (3.5-5.1) Chloride Level 105 mmol/L (98-107) Carbon Dioxide Level 31 mmol/L (21-32) Anion Gap 7 (6-14) Blood Urea Nitrogen 22 mg/dL (7-20) Creatinine 1.4 mg/dL (0.6-1.0) Estimated GFR (Cockcroft-Gault) 44.5 Glucose Level 88 mg/dL (70-99) Calcium Level 9.5 mg/dL (8.5-10.1) Test 06/14/18 07:06 06/14/18 11:13 Glucose (Fingerstick) 87 mg/dL (70-99) 134 mg/dL (70-99) Microbiology Micro Microbiology 06/12/18 Blood Culture - Preliminary, Resulted NO GROWTH AFTER 2 DAYS Physical Exam HEENT: Neck Supple W Full Motion Chest: Symmetric LUNGS: Other (basilar crackles with some faint wheeze; nonproductive cough) Heart: S1S2, RRR (SR), murmurs (distant heart tones) Abdomen: Soft N/T, Other (obese) Extremities: Other (2+ bilateral LE pitting edema) Neurology: alert, oriented, follow commands Assessment Assessment 1. Acute hypoxic respiratory failure secondary to PNA and CHF 2. Mild acute diastolic CHF; LVEF 55% per echo 3. Malignant hypertension; improved 4. DM2/HLP 5. CKD3 6. ALEXYS/pulmonary HTN 7. PVD s/p right popliteal to peroneal artery bypass. 8. Brief NSVT: called in by staff. Likely from low K and Mg Recommendations 1. Replace K. Check Mg and replace if low. Low dose lasix IV x1 2. Continue BP regimen. 3. Antibiotic per pulmonary 4. Continue with secondary prevention JACY SYED APRN Jun 14, 2018 14:23
[2018-06-14] MEDS: POTASSIUM CHLORIDE 20 MEQ TABLET.ER. PO SCH ×2 (14:53→17:41)
[2018-06-14 15:00] VITALS: BP 145/55
[2018-06-14] MEDS ORDERED: MAGNESIUM SULFATE 2GM 50 ML IV ONE (15:30)
[2018-06-14 19:00] VITALS: BP 166/64
[2018-06-14] MEDS: DONEPEZIL HCL 10 MG TABLET. PO SCH (21:02)
[2018-06-14] MEDS: ATORVASTATIN CALCIUM 40 MG TABLET. PO SCH (21:03)
[2018-06-14] MEDS: INSULIN GLARGINE 300 UNITS/3 ML INSULN.PEN. SQ SCH (21:11)
[2018-06-14 23:00] VITALS: BP 161/68
[2018-06-15 03:00] VITALS: BP 149/52
[2018-06-15 07:00] VITALS: BP 157/57
[2018-06-15 07:22] LABS: CALCIUM 9.2 mg/dL (8.5-10.1); CREATININE 1.4 mg/dL (0.6-1.0); GFR 44.5; POTASSIUM 3.9 mmol/L (3.5-5.1)
[2018-06-15 07:33] LABS: BASO % 0 % (0-3); EOS # 0.2 x10^3/uL (0.0-0.7); EOS % 3 % (0-3); HEMATOCRIT 30.3 % (36.0-47.0); HEMOGLOBIN 9.9 g/dL (12.0-15.5); LYMPH # 1.1 x10^3/uL (1.0-4.8); LYMPH % 16 % (24-48); MEAN CORPUSCULAR HEMOGLOBIN 30 pg (25-35); MEAN CORPUSCULAR HGB CONC 33 g/dL (31-37); MEAN CORPUSCULAR VOLUME 94 fL (79-100); MONO # 0.7 x10^3/uL (0.0-1.1); MONO % 11 % (0-9); NEUT # 4.8 x10^3uL (1.8-7.7); NEUT % 70 % (31-73); PLATELET COUNT 172 x10^3/uL (140-400); RED BLOOD COUNT 3.24 x10^6/uL (3.50-5.40); RED CELL DISTRIBUTION WIDTH 14.9 % (11.5-14.5); WHITE BLOOD COUNT 6.9 x10^3/uL (4.0-11.0)
[2018-06-15] MEDS: IPRATRPIUM/ALBUTEROL 0.5/2.5MG 3 ML NEBU. NEB SCH ×4 (07:45→19:59)
[2018-06-15] MEDS: INSULIN LISPRO 300 UNITS/3 ML INSULN.PEN. SQ SCH ×3 (08:00→17:08)
[2018-06-15] MEDS: cefTRIAXone IV Push 1 GM VIAL. IVP SCH (09:20)
[2018-06-15] MEDS: AZITHROMYCIN 500 MG in IV NORMAL SALINE 250ML 250 ML IV SCH (09:20)
[2018-06-15] MEDS: PIOGLITAZONE 15 MG TABLET. PO SCH (09:20)
[2018-06-15] MEDS: ASPIRIN ENTERIC COATED 81 MG TABLET.DR. PO SCH (09:21)
[2018-06-15] MEDS: amLODIPine BESYLATE 10 MG TABLET PO SCH (09:21)
[2018-06-15] MEDS: LOSARTAN POTASSIUM 50 MG TABLET. PO SCH (09:21)
[2018-06-15] MEDS: SERTRALINE 50 MG TABLET. PO SCH (09:21)
[2018-06-15] MEDS: OXYBUTYNIN CHLORIDE 5 MG TABLET PO SCH ×2 (09:21→20:54)
[2018-06-15] MEDS: LACTOBACILLUS RHAMNOSUS GG 1 CAPSULE. PO SCH ×2 (09:21→20:54)
[2018-06-15 11:00] VITALS: BP 137/49
--- NOTE | 2018-06-15 11:01 | PDOC ---
PROGRESS NOTES Chief Complaint Chief Complaint IMPRESSION SOA, CHF exacerbation cute hypercapnic, hypoxemic respiratory failure. Acute hypoxic respiratory failure secondary to PNEUMONIA / CHF acute diastolic CHF; LVEF 55% per echo Malignant hypertension DM2/HLP/morbid OBESITY CKD3 ALEXYS/pulmonary HTN History of Present Illness History of Present Illness Patient was seen and examined this AM. She complains of difficulty sleeping. Sitting comfortably in chair. Vitals Vitals Vital Signs Date Time Temp Pulse Resp B/P (MAP) Pulse Ox O2 Delivery O2 Flow Rate FiO2 06/15/18 09:21 64 157/57 06/15/18 07:47 97 Nasal Cannula 3.0 06/15/18 07:00 98.0 18 98.0 Physical Exam General: Alert, Oriented X3, Cooperative, mild distress Heart: Regular rate, Normal S1, Normal S2 Lungs: Wheezing Abdomen: Soft, No tenderness Extremities: Normal pulses, Other (2+ bilateral LE edema ) Skin: No breakdown, No significant lesion Labs LABS DESC: ORDERED: BCULT Procedure Result BLOOD CULTURE Preliminary NO GROWTH AFTER 3 DAYS Laboratory Tests Test 06/14/18 11:13 06/14/18 16:17 06/14/18 20:42 06/15/18 06:37 Glucose (Fingerstick) 134 mg/dL (70-99) 138 mg/dL (70-99) 187 mg/dL (70-99) White Blood Count 6.9 x10^3/uL (4.0-11.0) Red Blood Count 3.24 x10^6/uL (3.50-5.40) Hemoglobin 9.9 g/dL (12.0-15.5) Hematocrit 30.3 % (36.0-47.0) Mean Corpuscular Volume 94 fL (79-100) Mean Corpuscular Hemoglobin 30 pg (25-35) Mean Corpuscular Hemoglobin Concent 33 g/dL (31-37) Red Cell Distribution Width 14.9 % (11.5-14.5) Platelet Count 172 x10^3/uL (140-400) Neutrophils (%) (Auto) 70 % (31-73) Lymphocytes (%) (Auto) 16 % (24-48) Monocytes (%) (Auto) 11 % (0-9) Eosinophils (%) (Auto) 3 % (0-3) Basophils (%) (Auto) 0 % (0-3) Neutrophils # (Auto) 4.8 x10^3uL (1.8-7.7) Lymphocytes # (Auto) 1.1 x10^3/uL (1.0-4.8) Monocytes # (Auto) 0.7 x10^3/uL (0.0-1.1) Eosinophils # (Auto) 0.2 x10^3/uL (0.0-0.7) Basophils # (Auto) 0.0 x10^3/uL (0.0-0.2) Sodium Level 144 mmol/L (136-145) Potassium Level 3.9 mmol/L (3.5-5.1) Chloride Level 106 mmol/L (98-107) Carbon Dioxide Level 31 mmol/L (21-32) Anion Gap 7 (6-14) Blood Urea Nitrogen 24 mg/dL (7-20) Creatinine 1.4 mg/dL (0.6-1.0) Estimated GFR (Cockcroft-Gault) 44.5 Glucose Level 66 mg/dL (70-99) Calcium Level 9.2 mg/dL (8.5-10.1) Test 06/15/18 07:59 Glucose (Fingerstick) 62 mg/dL (70-99) Assessment and Plan Assessmemt and Plan Problems Medical Problems: (1) Congestive heart failure (CHF) Status: Acute Comment Review of Relevant I have reviewed the following items joel (where applicable) has been applied. Labs Laboratory Tests Test 06/13/18 11:26 06/13/18 16:50 06/13/18 20:47 06/14/18 05:20 Glucose (Fingerstick) 136 mg/dL (70-99) 148 mg/dL (70-99) 180 mg/dL (70-99) White Blood Count 9.3 x10^3/uL (4.0-11.0) Red Blood Count 3.59 x10^6/uL (3.50-5.40) Hemoglobin 10.9 g/dL (12.0-15.5) Hematocrit 33.8 % (36.0-47.0) Mean Corpuscular Volume 94 fL (79-100) Mean Corpuscular Hemoglobin 30 pg (25-35) Mean Corpuscular Hemoglobin Concent 32 g/dL (31-37) Red Cell Distribution Width 14.8 % (11.5-14.5) Platelet Count 176 x10^3/uL (140-400) Neutrophils (%) (Auto) 76 % (31-73) Lymphocytes (%) (Auto) 13 % (24-48) Monocytes (%) (Auto) 9 % (0-9) Eosinophils (%) (Auto) 2 % (0-3) Basophils (%) (Auto) 0 % (0-3) Neutrophils # (Auto) 7.0 x10^3uL (1.8-7.7) Lymphocytes # (Auto) 1.3 x10^3/uL (1.0-4.8) Monocytes # (Auto) 0.8 x10^3/uL (0.0-1.1) Eosinophils # (Auto) 0.2 x10^3/uL (0.0-0.7) Basophils # (Auto) 0.0 x10^3/uL (0.0-0.2) Magnesium Level 1.5 mg/dL (1.8-2.4) Test 06/14/18 05:25 06/14/18 07:06 06/14/18 11:13 06/14/18 16:17 Sodium Level 143 mmol/L (136-145) Potassium Level 3.1 mmol/L (3.5-5.1) Chloride Level 105 mmol/L (98-107) Carbon Dioxide Level 31 mmol/L (21-32) Anion Gap 7 (6-14) Blood Urea Nitrogen 22 mg/dL (7-20) Creatinine 1.4 mg/dL (0.6-1.0) Estimated GFR (Cockcroft-Gault) 44.5 Glucose Level 88 mg/dL (70-99) Calcium Level 9.5 mg/dL (8.5-10.1) Glucose (Fingerstick) 87 mg/dL (70-99) 134 mg/dL (70-99) 138 mg/dL (70-99) Test 06/14/18 20:42 06/15/18 06:37 06/15/18 07:59 Glucose (Fingerstick) 187 mg/dL (70-99) 62 mg/dL (70-99) White Blood Count 6.9 x10^3/uL (4.0-11.0) Red Blood Count 3.24 x10^6/uL (3.50-5.40) Hemoglobin 9.9 g/dL (12.0-15.5) Hematocrit 30.3 % (36.0-47.0) Mean Corpuscular Volume 94 fL (79-100) Mean Corpuscular Hemoglobin 30 pg (25-35) Mean Corpuscular Hemoglobin Concent 33 g/dL (31-37) Red Cell Distribution Width 14.9 % (11.5-14.5) Platelet Count 172 x10^3/uL (140-400) Neutrophils (%) (Auto) 70 % (31-73) Lymphocytes (%) (Auto) 16 % (24-48) Monocytes (%) (Auto) 11 % (0-9) Eosinophils (%) (Auto) 3 % (0-3) Basophils (%) (Auto) 0 % (0-3) Neutrophils # (Auto) 4.8 x10^3uL (1.8-7.7) Lymphocytes # (Auto) 1.1 x10^3/uL (1.0-4.8) Monocytes # (Auto) 0.7 x10^3/uL (0.0-1.1) Eosinophils # (Auto) 0.2 x10^3/uL (0.0-0.7) Basophils # (Auto) 0.0 x10^3/uL (0.0-0.2) Sodium Level 144 mmol/L (136-145) Potassium Level 3.9 mmol/L (3.5-5.1) Chloride Level 106 mmol/L (98-107) Carbon Dioxide Level 31 mmol/L (21-32) Anion Gap 7 (6-14) Blood Urea Nitrogen 24 mg/dL (7-20) Creatinine 1.4 mg/dL (0.6-1.0) Estimated GFR (Cockcroft-Gault) 44.5 Glucose Level 66 mg/dL (70-99) Calcium Level 9.2 mg/dL (8.5-10.1) Laboratory Tests Test 06/14/18 11:13 06/14/18 16:17 06/14/18 20:42 06/15/18 06:37 Glucose (Fingerstick) 134 mg/dL (70-99) 138 mg/dL (70-99) 187 mg/dL (70-99) White Blood Count 6.9 x10^3/uL (4.0-11.0) Red Blood Count 3.24 x10^6/uL (3.50-5.40) Hemoglobin 9.9 g/dL (12.0-15.5) Hematocrit 30.3 % (36.0-47.0) Mean Corpuscular Volume 94 fL (79-100) Mean Corpuscular Hemoglobin 30 pg (25-35) Mean Corpuscular Hemoglobin Concent 33 g/dL (31-37) Red Cell Distribution Width 14.9 % (11.5-14.5) Platelet Count 172 x10^3/uL (140-400) Neutrophils (%) (Auto) 70 % (31-73) Lymphocytes (%) (Auto) 16 % (24-48) Monocytes (%) (Auto) 11 % (0-9) Eosinophils (%) (Auto) 3 % (0-3) Basophils (%) (Auto) 0 % (0-3) Neutrophils # (Auto) 4.8 x10^3uL (1.8-7.7) Lymphocytes # (Auto) 1.1 x10^3/uL (1.0-4.8) Monocytes # (Auto) 0.7 x10^3/uL (0.0-1.1) Eosinophils # (Auto) 0.2 x10^3/uL (0.0-0.7) Basophils # (Auto) 0.0 x10^3/uL (0.0-0.2) Sodium Level 144 mmol/L (136-145) Potassium Level 3.9 mmol/L (3.5-5.1) Chloride Level 106 mmol/L (98-107) Carbon Dioxide Level 31 mmol/L (21-32) Anion Gap 7 (6-14) Blood Urea Nitrogen 24 mg/dL (7-20) Creatinine 1.4 mg/dL (0.6-1.0) Estimated GFR (Cockcroft-Gault) 44.5 Glucose Level 66 mg/dL (70-99) Calcium Level 9.2 mg/dL (8.5-10.1) Test 06/15/18 07:59 Glucose (Fingerstick) 62 mg/dL (70-99) Microbiology 06/12/18 Blood Culture - Preliminary, Resulted NO GROWTH AFTER 3 DAYS Medications Current Medications Albuterol Sulfate (Ventolin Neb Soln) 2.5 mg STK-MED ONCE .ROUTE ; Start at 07:59; Stop 06/12/18 at 08:01; Status DC Sodium Chloride 1,000 ml @ 1,000 mls/hr 1X ONCE IV Last administered on at 09:00; Start 06/12/18 at 08:15; Stop 06/12/18 at 09:14; Status DC Albuterol Sulfate (Ventolin Neb Soln) 10 mg 1X ONCE CONT NEB Last administered on 06/12/18at 08:28; Start 06/12/18 at 08:30; Stop 06/12/18 at 08:31 ; Status DC Clonidine HCl (Catapres) 0.2 mg 1X ONCE PO Last administered on 06/12/18at 08: 57; Start 06/12/18 at 09:00; Stop 06/12/18 at 09:01; Status DC Furosemide (Lasix) 40 mg 1X STAT IVP Last administered on 06/12/18 09:55; Start 06/12/18 at 09:42; Stop 06/12/18 at 09:43; Status DC Ceftriaxone Sodium (Rocephin) 1 gm 1X ONCE IVP Last administered on 06/12/18at 09:58; Start 06/12/18 at 10:00; Stop 06/12/18 at 10:01; Status DC Azithromycin 250 ml @ 250 mls/hr 1X ONCE IV Last administered on 06/12/18at 10 :34; Start 06/12/18 at 10:00; Stop 06/12/18 at 10:59; Status DC Albuterol/ Ipratropium (Duoneb) 3 ml RTQID NEB Last administered on 06/13/18at 15:09; Start 06/12/18 at 12:00; Stop 06/13/18 at 11:59; Status DC Labetalol HCl (Normodyne Iv Push) 20 mg 1X ONCE IVP ; Start 06/12/18 at 10:15; Stop 06/12/18 at 10:34; Status DC Amlodipine Besylate (Norvasc) 10 mg DAILY PO Last administered on 06/15/18 09: 21; Start 06/12/18 at 13:00 Aspirin (Ecotrin) 81 mg DAILY PO Last administered on 06/15/18 09:21; Start at 13:00 Atorvastatin Calcium (Lipitor) 40 mg HS PO Last administered on 06/14/18 21:03 ; Start 06/12/18 at 21:00 Carvedilol (Coreg) 12.5 mg BIDWMEALS PO Last administered on 06/12/18at 14:08; Start 06/12/18 at 13:00; Stop 06/12/18 at 15:57; Status DC Oxybutynin Chloride (Ditropan) 5 mg BID PO Last administered on 06/15/18 09:21 ; Start 06/12/18 at 13:00 Sertraline HCl (Zoloft) 50 mg DAILY PO Last administered on 06/15/18 09:21; Start 06/12/18 at 13:00 Donepezil HCl (Aricept) 10 mg QHS PO Last administered on 06/14/18 21:02; Start 06/12/18 at 21:00 Non-Formulary Medication (Insulin Aspart (Novolog Flexpen)) TIDWMEALS SQ ; Start 06/12/18 at 17:00; Status UNV Insulin Glargine (Lantus) 40 units QHS SQ Last administered on 06/14/18 21:11; Start 06/12/18 at 21:00 Losartan Potassium (Cozaar) 100 mg DAILY PO Last administered on 06/15/18 09:21 ; Start 06/12/18 at 13:00 Pioglitazone HCl (Actos) 30 mg DAILY PO Last administered on 06/15/18 09:20; Start 06/12/18 at 13:00 Insulin Human Lispro (HumaLOG) 0-7 UNITS TIDWMEALS SQ Last administered on 06/12 17:24; Start 06/12/18 at 13:00 Dextrose (Dextrose 50%-Water Syringe) 12.5 gm PRN Q15MIN PRN IV SEE COMMENTS; Start 06/12/18 at 12:45 Azithromycin 500 mg/Sodium Chloride 250 ml @ 250 mls/hr Q24H IV Last administered on 06/15/18 09:20; Start 06/13/18 at 09:00 Ceftriaxone Sodium (Rocephin) 1 gm Q24H IVP Last administered on 06/15/18 09:20 ; Start 06/13/18 at 09:00 Lactobacillus Rhamnosus (Culturelle) 1 cap BID PO Last administered on 09:21; Start 06/12/18 at 21:00 Hydralazine HCl (Apresoline Inj) 10 mg PRN Q4HRS PRN IVP ELEVATED BP, SEE COMMENTS Last administered on 06/14/18 02:51; Start 06/12/18 at 16:00 Acetaminophen (Tylenol) 650 mg PRN Q6HRS PRN PO MILD PAIN Last administered on 06/12/18 17:20; Start 06/12/18 at 16:45 Furosemide (Lasix) 20 mg 1X ONCE IVP Last administered on 06/13/18 15:23; Start 06/13/18 at 15:15; Stop 06/13/18 at 15:16; Status DC Hydralazine HCl (Apresoline) 50 mg BID PO Last administered on 06/15/18 09:21; Start 06/13/18 at 21:00 Albuterol/ Ipratropium (Duoneb) 3 ml RTQID NEB Last administered on 06/15/18at 07 :45; Start 06/13/18 at 17:00 Potassium Chloride (Klor-Con) 40 meq 1X ONCE PO Last administered on at 17:26; Start 06/13/18 at 17:30; Stop 06/13/18 at 17:31; Status DC Furosemide (Lasix) 20 mg 1X ONCE IVP Last administered on 06/14/18at 14:53; Start 06/14/18 at 14:15; Stop 06/14/18 at 14:21; Status DC Potassium Chloride (Klor-Con) 40 meq Q4H PO Last administered on 06/14/18at 17:41 ; Start 06/14/18 at 14:15; Stop 06/14/18 at 18:16; Status DC Magnesium Sulfate 50 ml @ 25 mls/hr 1X ONCE IV Last administered on 06/14/18at 15:59; Start 06/14/18 at 15:30; Stop 06/14/18 at 17:29; Status DC Active Scripts Active Hydrocodone-Apap 5-325 (Hydrocodone Bit/Acetaminophen) 1 Each Tablet 1 Tab PO PRN Q4HRS PRN 28 Days Novolog Flexpen (Insulin Aspart) 100 Unit/1 Ml Insuln.pen 0 Units SQ TIDWMEALS 30 Days Reported Oxybutynin Chloride 5 Mg Tablet 10 Mg PO HS Levemir Flextouch (Insulin Detemir) 100 Unit/1 Ml Insuln.pen 40 Unit SQ HS Pioglitazone Hcl 30 Mg Tablet 30 Mg PO DAILY Zoloft (Sertraline Hcl) 50 Mg Tablet 1 Tab PO DAILY Carvedilol (Carvedilol) 12.5 Mg Tablet 12.5 Mg PO BIDWMEALS Atorvastatin Calcium 40 Mg Tablet 40 Mg PO HS Aspirin Ec (Aspirin) 81 Mg Tablet.dr 81 Mg PO Amlodipine Besylate 10 Mg Tablet 10 Mg PO DAILY Donepezil Hcl 10 Mg Tablet 10 Mg PO HS Losartan Potassium 100 Mg Tablet 100 Mg PO DAILY Vitals/I & O Vital Sign - Last 24 Hours 06/14/18 06/14/18 06/14/18 06/14/18 11:00 11:06 15:00 15:19 Temp 98.3 98.3 98.3 98.3 Pulse 88 70 Resp 18 18 B/P (MAP) 134/61 (85) 145/55 (85) Pulse Ox 97 97 97 97 O2 Delivery Nasal Cannula Nasal Cannula Nasal Cannula Nasal Cannula O2 Flow Rate 3.0 3.5 3.0 3.5 06/14/18 06/14/18 06/14/18 06/14/18 19:00 20:00 21:03 21:54 Temp 98.7 98.7 Pulse 70 70 Resp 18 B/P (MAP) 166/64 (98) 166/64 Pulse Ox 98 95 O2 Delivery Nasal Cannula Nasal Cannula Nasal Cannula O2 Flow Rate 3.0 3.0 3.0 06/14/18 06/15/18 06/15/18 06/15/18 23:00 03:00 07:00 07:47 Temp 97.7 98.3 98.0 97.7 98.3 98.0 Pulse 71 70 64 Resp 18 18 18 B/P (MAP) 161/68 (99) 149/52 (84) 157/57 (90) Pulse Ox 96 98 98 97 O2 Delivery BiPAP/CPAP Nasal Cannula Nasal Cannula Nasal Cannula O2 Flow Rate 3.0 3.0 3.0 06/15/18 06/15/18 06/15/18 09:21 09:21 09:21 Pulse 64 64 64 B/P (MAP) 157/57 157/57 157/57 Intake and Output 06/14/18 06/14/18 06/15/18 15:01 23:01 07:01 Intake Total 250 ml 220 ml Balance 250 ml 220 ml TINO FARLEY MD Jun 15, 2018 11:01
--- NOTE | 2018-06-15 14:16 | PDOC ---
PULMONARY PROGRESS NOTES Subjective PT LESS SOA TODAY Vitals Vital Signs Date Time Temp Pulse Resp B/P (MAP) Pulse Ox O2 Delivery O2 Flow Rate FiO2 06/15/18 12:05 Nasal Cannula 3.0 06/15/18 11:00 97.5 70 16 137/49 (78) 98 97.5 ROS: No Nausea, No Chest Pain, No Abdominal Pain, No Increase Cough General: Alert, No acute distress Lungs: Wheezing Cardiovascular: S1, S2 Abdomen: Soft, Non-tender Neuro Exam: Alert Extremities: No Edema Skin: Warm Labs Laboratory Tests Test 06/13/18 16:50 06/13/18 20:47 06/14/18 05:20 06/14/18 05:25 Glucose (Fingerstick) 148 mg/dL (70-99) 180 mg/dL (70-99) White Blood Count 9.3 x10^3/uL (4.0-11.0) Red Blood Count 3.59 x10^6/uL (3.50-5.40) Hemoglobin 10.9 g/dL (12.0-15.5) Hematocrit 33.8 % (36.0-47.0) Mean Corpuscular Volume 94 fL (79-100) Mean Corpuscular Hemoglobin 30 pg (25-35) Mean Corpuscular Hemoglobin Concent 32 g/dL (31-37) Red Cell Distribution Width 14.8 % (11.5-14.5) Platelet Count 176 x10^3/uL (140-400) Neutrophils (%) (Auto) 76 % (31-73) Lymphocytes (%) (Auto) 13 % (24-48) Monocytes (%) (Auto) 9 % (0-9) Eosinophils (%) (Auto) 2 % (0-3) Basophils (%) (Auto) 0 % (0-3) Neutrophils # (Auto) 7.0 x10^3uL (1.8-7.7) Lymphocytes # (Auto) 1.3 x10^3/uL (1.0-4.8) Monocytes # (Auto) 0.8 x10^3/uL (0.0-1.1) Eosinophils # (Auto) 0.2 x10^3/uL (0.0-0.7) Basophils # (Auto) 0.0 x10^3/uL (0.0-0.2) Magnesium Level 1.5 mg/dL (1.8-2.4) Sodium Level 143 mmol/L (136-145) Potassium Level 3.1 mmol/L (3.5-5.1) Chloride Level 105 mmol/L (98-107) Carbon Dioxide Level 31 mmol/L (21-32) Anion Gap 7 (6-14) Blood Urea Nitrogen 22 mg/dL (7-20) Creatinine 1.4 mg/dL (0.6-1.0) Estimated GFR (Cockcroft-Gault) 44.5 Glucose Level 88 mg/dL (70-99) Calcium Level 9.5 mg/dL (8.5-10.1) Test 06/14/18 07:06 06/14/18 11:13 06/14/18 16:17 06/14/18 20:42 Glucose (Fingerstick) 87 mg/dL (70-99) 134 mg/dL (70-99) 138 mg/dL (70-99) 187 mg/dL (70-99) Test 06/15/18 06:37 06/15/18 07:59 06/15/18 11:42 White Blood Count 6.9 x10^3/uL (4.0-11.0) Red Blood Count 3.24 x10^6/uL (3.50-5.40) Hemoglobin 9.9 g/dL (12.0-15.5) Hematocrit 30.3 % (36.0-47.0) Mean Corpuscular Volume 94 fL (79-100) Mean Corpuscular Hemoglobin 30 pg (25-35) Mean Corpuscular Hemoglobin Concent 33 g/dL (31-37) Red Cell Distribution Width 14.9 % (11.5-14.5) Platelet Count 172 x10^3/uL (140-400) Neutrophils (%) (Auto) 70 % (31-73) Lymphocytes (%) (Auto) 16 % (24-48) Monocytes (%) (Auto) 11 % (0-9) Eosinophils (%) (Auto) 3 % (0-3) Basophils (%) (Auto) 0 % (0-3) Neutrophils # (Auto) 4.8 x10^3uL (1.8-7.7) Lymphocytes # (Auto) 1.1 x10^3/uL (1.0-4.8) Monocytes # (Auto) 0.7 x10^3/uL (0.0-1.1) Eosinophils # (Auto) 0.2 x10^3/uL (0.0-0.7) Basophils # (Auto) 0.0 x10^3/uL (0.0-0.2) Sodium Level 144 mmol/L (136-145) Potassium Level 3.9 mmol/L (3.5-5.1) Chloride Level 106 mmol/L (98-107) Carbon Dioxide Level 31 mmol/L (21-32) Anion Gap 7 (6-14) Blood Urea Nitrogen 24 mg/dL (7-20) Creatinine 1.4 mg/dL (0.6-1.0) Estimated GFR (Cockcroft-Gault) 44.5 Glucose Level 66 mg/dL (70-99) Calcium Level 9.2 mg/dL (8.5-10.1) Glucose (Fingerstick) 62 mg/dL (70-99) 112 mg/dL (70-99) Laboratory Tests Test 06/14/18 16:17 06/14/18 20:42 06/15/18 06:37 06/15/18 07:59 Glucose (Fingerstick) 138 mg/dL (70-99) 187 mg/dL (70-99) 62 mg/dL (70-99) White Blood Count 6.9 x10^3/uL (4.0-11.0) Red Blood Count 3.24 x10^6/uL (3.50-5.40) Hemoglobin 9.9 g/dL (12.0-15.5) Hematocrit 30.3 % (36.0-47.0) Mean Corpuscular Volume 94 fL (79-100) Mean Corpuscular Hemoglobin 30 pg (25-35) Mean Corpuscular Hemoglobin Concent 33 g/dL (31-37) Red Cell Distribution Width 14.9 % (11.5-14.5) Platelet Count 172 x10^3/uL (140-400) Neutrophils (%) (Auto) 70 % (31-73) Lymphocytes (%) (Auto) 16 % (24-48) Monocytes (%) (Auto) 11 % (0-9) Eosinophils (%) (Auto) 3 % (0-3) Basophils (%) (Auto) 0 % (0-3) Neutrophils # (Auto) 4.8 x10^3uL (1.8-7.7) Lymphocytes # (Auto) 1.1 x10^3/uL (1.0-4.8) Monocytes # (Auto) 0.7 x10^3/uL (0.0-1.1) Eosinophils # (Auto) 0.2 x10^3/uL (0.0-0.7) Basophils # (Auto) 0.0 x10^3/uL (0.0-0.2) Sodium Level 144 mmol/L (136-145) Potassium Level 3.9 mmol/L (3.5-5.1) Chloride Level 106 mmol/L (98-107) Carbon Dioxide Level 31 mmol/L (21-32) Anion Gap 7 (6-14) Blood Urea Nitrogen 24 mg/dL (7-20) Creatinine 1.4 mg/dL (0.6-1.0) Estimated GFR (Cockcroft-Gault) 44.5 Glucose Level 66 mg/dL (70-99) Calcium Level 9.2 mg/dL (8.5-10.1) Test 06/15/18 11:42 Glucose (Fingerstick) 112 mg/dL (70-99) Medications Active Scripts Medications Dose Route/Sig Max Daily Dose Days Date Category Oxybutynin Chloride 5 Mg Tablet 10 Mg PO HS 06/12/18 Reported Levemir Flextouch (Insulin Detemir) 100 Unit/1 Ml Insuln.pen 40 Unit SQ HS 06/12/18 Reported Pioglitazone Hcl 30 Mg Tablet 30 Mg PO DAILY 06/12/18 Reported Zoloft (Sertraline Hcl) 50 Mg Tablet 1 Tab PO DAILY 06/12/18 Reported Hydrocodone-Apap 5-325 (Hydrocodone Bit/Acetaminophen) 1 Each Tablet 1 Tab PO PRN Q4HRS PRN 28 08/09/16 Rx Carvedilol (Carvedilol) 12.5 Mg Tablet 12.5 Mg PO BIDWMEALS 07/21/16 Reported Atorvastatin Calcium 40 Mg Tablet 40 Mg PO HS 07/21/16 Reported Novolog Flexpen (Insulin Aspart) 100 Unit/1 Ml Insuln.pen 0 Units SQ TIDWMEALS 30 03/17/16 Rx Aspirin Ec (Aspirin) 81 Mg Tablet. 81 Mg PO 03/14/16 Reported Amlodipine Besylate 10 Mg Tablet 10 Mg PO DAILY 03/14/16 Reported Donepezil Hcl 10 Mg Tablet 10 Mg PO HS 03/14/16 Reported Losartan Potassium 100 Mg Tablet 100 Mg PO DAILY 07/24/13 Reported Impression . IMPRESSION: 1. Acute hypercapnic hypoxemic respiratory failure. 2. Abnormal x-ray compatible with pneumonia, possibly gram negative. 3. Generalized weakness. 4. Renal insufficiency. 5. Elevated BNP. 6. Obstructive sleep apnea. 7. Suspect secondary pulmonary hypertension. 8. Suspect right-sided heart failure. 9. NEGATIVE DVT IMPRESSION: No sonographic evidence of acute DVT of the bilateral lower extremity deep veins. Plan . RESP STATUS IS COMPENSATE D/C SOON OK WILL NEED REHAB SHE IS VERY WEAK WILL CONTINUE THE SAME WILL NEED REHAB OUT PT SLEEP STUDY D/W SISTER AND PT ALLEN CHEEK MD Jun 15, 2018 14:16
[2018-06-15 15:00] VITALS: BP 177/64
[2018-06-15] MEDS ORDERED: BENZOCAINE/MENTHOL LOZENGE. PO PRN (16:45)
[2018-06-15] MEDS: BENZONATATE 100 MG CAPSULE. PO SCH ×2 (17:05→20:55)
[2018-06-15 19:00] VITALS: BP 115/70
[2018-06-15] MEDS: ATORVASTATIN CALCIUM 40 MG TABLET. PO SCH (20:54)
[2018-06-15] MEDS: DONEPEZIL HCL 10 MG TABLET. PO SCH (20:54)
[2018-06-15] MEDS: INSULIN GLARGINE 300 UNITS/3 ML INSULN.PEN. SQ SCH (20:55)
[2018-06-15 23:00] VITALS: BP_SYST 115; BP_SYST 120; BP_DIAS 70; BP_DIAS 73
[2018-06-16] VITALS (7 sets, daily range): BP systolic 106–177; BP diastolic 56–75
[2018-06-16 06:57] LABS: BASO % 0 % (0-3); EOS # 0.2 x10^3/uL (0.0-0.7); EOS % 3 % (0-3); HEMATOCRIT 30.7 % (36.0-47.0); HEMOGLOBIN 9.9 g/dL (12.0-15.5); LYMPH % 15 % (24-48); MEAN CORPUSCULAR HEMOGLOBIN 31 pg (25-35); MEAN CORPUSCULAR HGB CONC 32 g/dL (31-37); MEAN CORPUSCULAR VOLUME 95 fL (79-100); MONO # 0.7 x10^3/uL (0.0-1.1); MONO % 11 % (0-9); NEUT # 4.9 x10^3uL (1.8-7.7); NEUT % 71 % (31-73); PLATELET COUNT 165 x10^3/uL (140-400); RED BLOOD COUNT 3.24 x10^6/uL (3.50-5.40); RED CELL DISTRIBUTION WIDTH 14.9 % (11.5-14.5); WHITE BLOOD COUNT 6.8 x10^3/uL (4.0-11.0)
[2018-06-16 07:08] LABS: CALCIUM 9.7 mg/dL (8.5-10.1); CREATININE 1.4 mg/dL (0.6-1.0); GFR 44.5
[2018-06-16] MEDS: INSULIN LISPRO 300 UNITS/3 ML INSULN.PEN. SQ SCH ×3 (07:46→17:00)
[2018-06-16] MEDS: IPRATRPIUM/ALBUTEROL 0.5/2.5MG 3 ML NEBU. NEB SCH ×4 (08:13→20:11)
[2018-06-16] MEDS: amLODIPine BESYLATE 10 MG TABLET PO SCH (08:49)
[2018-06-16] MEDS: SERTRALINE 50 MG TABLET. PO SCH (08:49)
[2018-06-16] MEDS: ASPIRIN ENTERIC COATED 81 MG TABLET.DR. PO SCH (08:49)
[2018-06-16] MEDS: LACTOBACILLUS RHAMNOSUS GG 1 CAPSULE. PO SCH ×2 (08:49→21:24)
[2018-06-16] MEDS: OXYBUTYNIN CHLORIDE 5 MG TABLET PO SCH ×2 (08:49→21:24)
[2018-06-16] MEDS: PIOGLITAZONE 15 MG TABLET. PO SCH (08:49)
[2018-06-16] MEDS: BENZONATATE 100 MG CAPSULE. PO SCH ×3 (08:49→21:23)
[2018-06-16] MEDS: LOSARTAN POTASSIUM 50 MG TABLET. PO SCH (08:49)
[2018-06-16] MEDS: cefTRIAXone IV Push 1 GM VIAL. IVP SCH (08:50)
[2018-06-16] MEDS: AZITHROMYCIN 500 MG in IV NORMAL SALINE 250ML 250 ML IV SCH (08:50)
--- NOTE | 2018-06-16 10:06 | PDOC ---
PROGRESS NOTES Chief Complaint Chief Complaint IMPRESSION SOA, CHF exacerbation acute hypercapnic, hypoxemic respiratory failure. Acute hypoxic respiratory failure secondary to PNEUMONIA / CHF acute diastolic CHF; LVEF 55% per echo Malignant hypertension DM2/HLP/morbid OBESITY CKD3 ALEXYS/pulmonary HTN generalized weakness plan oupt sleep study snf bed rehab d/c planning History of Present Illness History of Present Illness Patient was seen and examined this AM. She complains of difficulty sleeping. Sitting comfortably in chair. Vitals Vitals Vital Signs Date Time Temp Pulse Resp B/P (MAP) Pulse Ox O2 Delivery O2 Flow Rate FiO2 06/16/18 08:49 66 170/64 06/16/18 08:15 98 Nasal Cannula 3.0 06/16/18 07:45 98.4 16 98.4 Physical Exam General: Alert, Oriented X3, Cooperative, mild distress Heart: Regular rate, Normal S1, Normal S2 Lungs: Wheezing Abdomen: Soft, No tenderness Extremities: Normal pulses, Other (2+ bilateral LE edema ) Skin: No breakdown, No significant lesion Labs LABS Laboratory Tests Test 06/15/18 11:42 06/15/18 16:41 06/15/18 20:23 06/16/18 06:15 Glucose (Fingerstick) 112 mg/dL (70-99) 162 mg/dL (70-99) 155 mg/dL (70-99) White Blood Count 6.8 x10^3/uL (4.0-11.0) Red Blood Count 3.24 x10^6/uL (3.50-5.40) Hemoglobin 9.9 g/dL (12.0-15.5) Hematocrit 30.7 % (36.0-47.0) Mean Corpuscular Volume 95 fL (79-100) Mean Corpuscular Hemoglobin 31 pg (25-35) Mean Corpuscular Hemoglobin Concent 32 g/dL (31-37) Red Cell Distribution Width 14.9 % (11.5-14.5) Platelet Count 165 x10^3/uL (140-400) Neutrophils (%) (Auto) 71 % (31-73) Lymphocytes (%) (Auto) 15 % (24-48) Monocytes (%) (Auto) 11 % (0-9) Eosinophils (%) (Auto) 3 % (0-3) Basophils (%) (Auto) 0 % (0-3) Neutrophils # (Auto) 4.9 x10^3uL (1.8-7.7) Lymphocytes # (Auto) 1.0 x10^3/uL (1.0-4.8) Monocytes # (Auto) 0.7 x10^3/uL (0.0-1.1) Eosinophils # (Auto) 0.2 x10^3/uL (0.0-0.7) Basophils # (Auto) 0.0 x10^3/uL (0.0-0.2) Sodium Level 145 mmol/L (136-145) Potassium Level 4.0 mmol/L (3.5-5.1) Chloride Level 107 mmol/L (98-107) Carbon Dioxide Level 34 mmol/L (21-32) Anion Gap 4 (6-14) Blood Urea Nitrogen 24 mg/dL (7-20) Creatinine 1.4 mg/dL (0.6-1.0) Estimated GFR (Cockcroft-Gault) 44.5 Glucose Level 104 mg/dL (70-99) Calcium Level 9.7 mg/dL (8.5-10.1) Test 06/16/18 07:30 Glucose (Fingerstick) 102 mg/dL (70-99) Assessment and Plan Assessmemt and Plan Problems Medical Problems: (1) Congestive heart failure (CHF) Status: Acute * Pt denies further needs Communicated Patient Care With (Name, Title) * YAO Bryant Goal 1 - Bed Mobility Assistance Required * Independent Goal 1 Assessment * Appropriate - Continue Goal 2 - Transfers Assistance Required * Independent Goal 2 - Transfer Type * Sit to Stand Goal 2 Assessment * Appropriate - Continue Goal 3 - Ambulation Assistance Required * Independent Goal 3 - Ambulation Distance * 250' Goal 3 - Ambulation Device * Cane Goal 3 Assessment * Appropriate - Continue Treatment Plan * Therapeutic Exercise * Bed Mobility Training * Transfer training * Gait Training * Dynamic Balance Training Frequency of Treatment Expected * 6 visits/week Duration of Treatment Expected * 2 weeks Discharge Recommendations * Nursing Home Unit Discharge Recommendation - DME * Rolling Walker needed * in order to complete ADLs * and ambulation safely Comment Review of Relevant I have reviewed the following items joel (where applicable) has been applied. Labs Laboratory Tests Test 06/14/18 11:13 06/14/18 16:17 06/14/18 20:42 06/15/18 06:37 Glucose (Fingerstick) 134 mg/dL (70-99) 138 mg/dL (70-99) 187 mg/dL (70-99) White Blood Count 6.9 x10^3/uL (4.0-11.0) Red Blood Count 3.24 x10^6/uL (3.50-5.40) Hemoglobin 9.9 g/dL (12.0-15.5) Hematocrit 30.3 % (36.0-47.0) Mean Corpuscular Volume 94 fL (79-100) Mean Corpuscular Hemoglobin 30 pg (25-35) Mean Corpuscular Hemoglobin Concent 33 g/dL (31-37) Red Cell Distribution Width 14.9 % (11.5-14.5) Platelet Count 172 x10^3/uL (140-400) Neutrophils (%) (Auto) 70 % (31-73) Lymphocytes (%) (Auto) 16 % (24-48) Monocytes (%) (Auto) 11 % (0-9) Eosinophils (%) (Auto) 3 % (0-3) Basophils (%) (Auto) 0 % (0-3) Neutrophils # (Auto) 4.8 x10^3uL (1.8-7.7) Lymphocytes # (Auto) 1.1 x10^3/uL (1.0-4.8) Monocytes # (Auto) 0.7 x10^3/uL (0.0-1.1) Eosinophils # (Auto) 0.2 x10^3/uL (0.0-0.7) Basophils # (Auto) 0.0 x10^3/uL (0.0-0.2) Sodium Level 144 mmol/L (136-145) Potassium Level 3.9 mmol/L (3.5-5.1) Chloride Level 106 mmol/L (98-107) Carbon Dioxide Level 31 mmol/L (21-32) Anion Gap 7 (6-14) Blood Urea Nitrogen 24 mg/dL (7-20) Creatinine 1.4 mg/dL (0.6-1.0) Estimated GFR (Cockcroft-Gault) 44.5 Glucose Level 66 mg/dL (70-99) Calcium Level 9.2 mg/dL (8.5-10.1) Test 06/15/18 07:59 2/2/19 11:42 06/15/18 16:41 06/15/18 20:23 Glucose (Fingerstick) 62 mg/dL (70-99) 112 mg/dL (70-99) 162 mg/dL (70-99) 155 mg/dL (70-99) Test 06/16/18 06:15 06/16/18 07:30 White Blood Count 6.8 x10^3/uL (4.0-11.0) Red Blood Count 3.24 x10^6/uL (3.50-5.40) Hemoglobin 9.9 g/dL (12.0-15.5) Hematocrit 30.7 % (36.0-47.0) Mean Corpuscular Volume 95 fL (79-100) Mean Corpuscular Hemoglobin 31 pg (25-35) Mean Corpuscular Hemoglobin Concent 32 g/dL (31-37) Red Cell Distribution Width 14.9 % (11.5-14.5) Platelet Count 165 x10^3/uL (140-400) Neutrophils (%) (Auto) 71 % (31-73) Lymphocytes (%) (Auto) 15 % (24-48) Monocytes (%) (Auto) 11 % (0-9) Eosinophils (%) (Auto) 3 % (0-3) Basophils (%) (Auto) 0 % (0-3) Neutrophils # (Auto) 4.9 x10^3uL (1.8-7.7) Lymphocytes # (Auto) 1.0 x10^3/uL (1.0-4.8) Monocytes # (Auto) 0.7 x10^3/uL (0.0-1.1) Eosinophils # (Auto) 0.2 x10^3/uL (0.0-0.7) Basophils # (Auto) 0.0 x10^3/uL (0.0-0.2) Sodium Level 145 mmol/L (136-145) Potassium Level 4.0 mmol/L (3.5-5.1) Chloride Level 107 mmol/L (98-107) Carbon Dioxide Level 34 mmol/L (21-32) Anion Gap 4 (6-14) Blood Urea Nitrogen 24 mg/dL (7-20) Creatinine 1.4 mg/dL (0.6-1.0) Estimated GFR (Cockcroft-Gault) 44.5 Glucose Level 104 mg/dL (70-99) Calcium Level 9.7 mg/dL (8.5-10.1) Glucose (Fingerstick) 102 mg/dL (70-99) Laboratory Tests Test 06/15/18 11:42 06/15/18 16:41 06/15/18 20:23 06/16/18 06:15 Glucose (Fingerstick) 112 mg/dL (70-99) 162 mg/dL (70-99) 155 mg/dL (70-99) White Blood Count 6.8 x10^3/uL (4.0-11.0) Red Blood Count 3.24 x10^6/uL (3.50-5.40) Hemoglobin 9.9 g/dL (12.0-15.5) Hematocrit 30.7 % (36.0-47.0) Mean Corpuscular Volume 95 fL (79-100) Mean Corpuscular Hemoglobin 31 pg (25-35) Mean Corpuscular Hemoglobin Concent 32 g/dL (31-37) Red Cell Distribution Width 14.9 % (11.5-14.5) Platelet Count 165 x10^3/uL (140-400) Neutrophils (%) (Auto) 71 % (31-73) Lymphocytes (%) (Auto) 15 % (24-48) Monocytes (%) (Auto) 11 % (0-9) Eosinophils (%) (Auto) 3 % (0-3) Basophils (%) (Auto) 0 % (0-3) Neutrophils # (Auto) 4.9 x10^3uL (1.8-7.7) Lymphocytes # (Auto) 1.0 x10^3/uL (1.0-4.8) Monocytes # (Auto) 0.7 x10^3/uL (0.0-1.1) Eosinophils # (Auto) 0.2 x10^3/uL (0.0-0.7) Basophils # (Auto) 0.0 x10^3/uL (0.0-0.2) Sodium Level 145 mmol/L (136-145) Potassium Level 4.0 mmol/L (3.5-5.1) Chloride Level 107 mmol/L (98-107) Carbon Dioxide Level 34 mmol/L (21-32) Anion Gap 4 (6-14) Blood Urea Nitrogen 24 mg/dL (7-20) Creatinine 1.4 mg/dL (0.6-1.0) Estimated GFR (Cockcroft-Gault) 44.5 Glucose Level 104 mg/dL (70-99) Calcium Level 9.7 mg/dL (8.5-10.1) Test 06/16/18 07:30 Glucose (Fingerstick) 102 mg/dL (70-99) Microbiology 06/12/18 Blood Culture - Preliminary, Resulted NO GROWTH AFTER 4 DAYS Medications Current Medications Albuterol Sulfate (Ventolin Neb Soln) 2.5 mg STK-MED ONCE .ROUTE ; Start at 07:59; Stop 06/12/18 at 08:01; Status DC Sodium Chloride 1,000 ml @ 1,000 mls/hr 1X ONCE IV Last administered on at 09:00; Start 06/12/18 at 08:15; Stop 06/12/18 at 09:14; Status DC Albuterol Sulfate (Ventolin Neb Soln) 10 mg 1X ONCE CONT NEB Last administered on 06/12/18at 08:28; Start 06/12/18 at 08:30; Stop 06/12/18 at 08:31 ; Status DC Clonidine HCl (Catapres) 0.2 mg 1X ONCE PO Last administered on 06/12/18at 08: 57; Start 06/12/18 at 09:00; Stop 06/12/18 at 09:01; Status DC Furosemide (Lasix) 40 mg 1X STAT IVP Last administered on 06/12/18at 09:55; Start 06/12/18 at 09:42; Stop 06/12/18 at 09:43; Status DC Ceftriaxone Sodium (Rocephin) 1 gm 1X ONCE IVP Last administered on 06/12/18at 09:58; Start 06/12/18 at 10:00; Stop 06/12/18 at 10:01; Status DC Azithromycin 250 ml @ 250 mls/hr 1X ONCE IV Last administered on 06/12/18at 10 :34; Start 06/12/18 at 10:00; Stop 06/12/18 at 10:59; Status DC Albuterol/ Ipratropium (Duoneb) 3 ml RTQID NEB Last administered on 06/13/18 15:09; Start 06/12/18 at 12:00; Stop 06/13/18 at 11:59; Status DC Labetalol HCl (Normodyne Iv Push) 20 mg 1X ONCE IVP ; Start 06/12/18 at 10:15; Stop 06/12/18 at 10:34; Status DC Amlodipine Besylate (Norvasc) 10 mg DAILY PO Last administered on 06/16/18 08: 49; Start 06/12/18 at 13:00 Aspirin (Ecotrin) 81 mg DAILY PO Last administered on 06/16/18 08:49; Start at 13:00 Atorvastatin Calcium (Lipitor) 40 mg HS PO Last administered on 06/15/18 20:54 ; Start 06/12/18 at 21:00 Carvedilol (Coreg) 12.5 mg BIDWMEALS PO Last administered on 06/12/18 14:08; Start 06/12/18 at 13:00; Stop 06/12/18 at 15:57; Status DC Oxybutynin Chloride (Ditropan) 5 mg BID PO Last administered on 06/16/18 08:49 ; Start 06/12/18 at 13:00 Sertraline HCl (Zoloft) 50 mg DAILY PO Last administered on 06/16/18 08:49; Start 06/12/18 at 13:00 Donepezil HCl (Aricept) 10 mg QHS PO Last administered on 06/15/18 20:54; Start 06/12/18 at 21:00 Non-Formulary Medication (Insulin Aspart (Novolog Flexpen)) TIDWMEALS SQ ; Start 06/12/18 at 17:00; Status UNV Insulin Glargine (Lantus) 40 units QHS SQ Last administered on 06/14/18 21:11; Start 06/12/18 at 21:00 Losartan Potassium (Cozaar) 100 mg DAILY PO Last administered on 06/16/18 08:49 ; Start 06/12/18 at 13:00 Pioglitazone HCl (Actos) 30 mg DAILY PO Last administered on 06/16/18 08:49; Start 06/12/18 at 13:00 Insulin Human Lispro (HumaLOG) 0-7 UNITS TIDWMEALS SQ Last administered on 17:08; Start 06/12/18 at 13:00 Dextrose (Dextrose 50%-Water Syringe) 12.5 gm PRN Q15MIN PRN IV SEE COMMENTS; Start 06/12/18 at 12:45 Azithromycin 500 mg/Sodium Chloride 250 ml @ 250 mls/hr Q24H IV Last administered on 06/16/18 08:50; Start 06/13/18 at 09:00 Ceftriaxone Sodium (Rocephin) 1 gm Q24H IVP Last administered on 06/16/18 08:50 ; Start 06/13/18 at 09:00 Lactobacillus Rhamnosus (Culturelle) 1 cap BID PO Last administered on 08:49; Start 06/12/18 at 21:00 Hydralazine HCl (Apresoline Inj) 10 mg PRN Q4HRS PRN IVP ELEVATED BP, SEE COMMENTS Last administered on 06/14/18 02:51; Start 06/12/18 at 16:00 Acetaminophen (Tylenol) 650 mg PRN Q6HRS PRN PO MILD PAIN Last administered on 06/12/18 17:20; Start 06/12/18 at 16:45 Furosemide (Lasix) 20 mg 1X ONCE IVP Last administered on 06/13/18 15:23; Start 06/13/18 at 15:15; Stop 06/13/18 at 15:16; Status DC Hydralazine HCl (Apresoline) 50 mg BID PO Last administered on 06/16/18 08:49; Start 06/13/18 at 21:00 Albuterol/ Ipratropium (Duoneb) 3 ml RTQID NEB Last administered on 06/16/18 08 :13; Start 06/13/18 at 17:00 Potassium Chloride (Klor-Con) 40 meq 1X ONCE PO Last administered on 17:26; Start 06/13/18 at 17:30; Stop 06/13/18 at 17:31; Status DC Furosemide (Lasix) 20 mg 1X ONCE IVP Last administered on 06/14/18 14:53; Start 06/14/18 at 14:15; Stop 06/14/18 at 14:21; Status DC Potassium Chloride (Klor-Con) 40 meq Q4H PO Last administered on 06/14/18at 17:41 ; Start 06/14/18 at 14:15; Stop 06/14/18 at 18:16; Status DC Magnesium Sulfate 50 ml @ 25 mls/hr 1X ONCE IV Last administered on 06/14/18at 15:59; Start 06/14/18 at 15:30; Stop 06/14/18 at 17:29; Status DC Throat Lozenges (Cepacol Sore Throat Lozenge) 1 nohelia PRN Q2HRS PRN PO SORE THROAT Last administered on 06/15/18at 17:05; Start 06/15/18 at 16:45 Benzonatate (Tessalon Perle) 100 mg [id number] PO Last administered on 06/16/18at 08: 49; Start 06/15/18 at 17:00 Active Scripts Active Hydrocodone-Apap 5-325 (Hydrocodone Bit/Acetaminophen) 1 Each Tablet 1 Tab PO PRN Q4HRS PRN 28 Days Novolog Flexpen (Insulin Aspart) 100 Unit/1 Ml Insuln.pen 0 Units SQ TIDWMEALS 30 Days Reported Oxybutynin Chloride 5 Mg Tablet 10 Mg PO HS Levemir Flextouch (Insulin Detemir) 100 Unit/1 Ml Insuln.pen 40 Unit SQ HS Pioglitazone Hcl 30 Mg Tablet 30 Mg PO DAILY Zoloft (Sertraline Hcl) 50 Mg Tablet 1 Tab PO DAILY Carvedilol (Carvedilol) 12.5 Mg Tablet 12.5 Mg PO BIDWMEALS Atorvastatin Calcium 40 Mg Tablet 40 Mg PO HS Aspirin Ec (Aspirin) 81 Mg Tablet.dr 81 Mg PO Amlodipine Besylate 10 Mg Tablet 10 Mg PO DAILY Donepezil Hcl 10 Mg Tablet 10 Mg PO HS Losartan Potassium 100 Mg Tablet 100 Mg PO DAILY Vitals/I & O Vital Sign - Last 24 Hours 06/15/18 06/15/18 06/15/18 06/15/18 11:00 12:05 15:00 15:57 Temp 97.5 98.2 97.5 98.2 Pulse 70 70 Resp 16 16 B/P (MAP) 137/49 (78) 177/64 (101) Pulse Ox 98 98 98 O2 Delivery Nasal Cannula Nasal Cannula Nasal Cannula Nasal Cannula O2 Flow Rate 3.0 3.0 3.0 3.0 06/15/18 06/15/18 06/15/18 06/15/18 19:00 20:03 20:10 20:54 Temp 98.4 98.4 Pulse 83 83 Resp 16 B/P (MAP) 115/70 (85) 115/70 Pulse Ox 98 98 O2 Delivery Nasal Cannula Nasal Cannula Nasal Cannula O2 Flow Rate 3.0 3.0 3.0 06/15/18 06/15/18 06/16/18 06/16/18 21:40 23:00 00:07 02:35 Temp 98.4 98.4 Pulse 83 Resp 17 B/P (MAP) 120/73 (89) Pulse Ox 96 96 O2 Delivery BiPAP/CPAP Nasal Cannula BiPAP/CPAP BiPAP/CPAP O2 Flow Rate 3.0 06/16/18 06/16/18 06/16/18 06/16/18 03:00 04:58 07:45 08:00 Temp 98.2 98.4 98.2 98.4 Pulse 82 66 Resp 16 16 B/P (MAP) 117/75 (89) 170/64 (99) Pulse Ox 99 98 O2 Delivery Nasal Cannula BiPAP/CPAP Nasal Cannula Nasal Cannula O2 Flow Rate 3.0 3.0 3.0 06/16/18 06/16/18 06/16/18 06/16/18 08:15 08:49 08:49 08:49 Pulse 66 66 66 B/P (MAP) 170/64 170/64 170/64 Pulse Ox 98 O2 Delivery Nasal Cannula O2 Flow Rate 3.0 Intake and Output 06/15/18 06/15/18 06/16/18 15:01 23:01 07:01 Intake Total 480 ml 180 ml Balance 480 ml 180 ml TINO FARLEY MD Jun 16, 2018 10:06
--- NOTE | 2018-06-16 12:21 | PDOC ---
PULMONARY PROGRESS NOTES Subjective PT LESS SOA TODAY Vitals Vital Signs Date Time Temp Pulse Resp B/P (MAP) Pulse Ox O2 Delivery O2 Flow Rate FiO2 06/16/18 11:56 98 Nasal Cannula 3.0 06/16/18 11:45 98.5 74 16 106/58 (74) 98.5 ROS: No Nausea, No Chest Pain, No Abdominal Pain, No Increase Cough General: Alert, No acute distress Lungs: Wheezing Cardiovascular: S1, S2 Abdomen: Soft, Non-tender Neuro Exam: Alert Extremities: No Edema Skin: Warm Labs Laboratory Tests Test 06/14/18 16:17 06/14/18 20:42 06/15/18 06:37 06/15/18 07:59 Glucose (Fingerstick) 138 mg/dL (70-99) 187 mg/dL (70-99) 62 mg/dL (70-99) White Blood Count 6.9 x10^3/uL (4.0-11.0) Red Blood Count 3.24 x10^6/uL (3.50-5.40) Hemoglobin 9.9 g/dL (12.0-15.5) Hematocrit 30.3 % (36.0-47.0) Mean Corpuscular Volume 94 fL (79-100) Mean Corpuscular Hemoglobin 30 pg (25-35) Mean Corpuscular Hemoglobin Concent 33 g/dL (31-37) Red Cell Distribution Width 14.9 % (11.5-14.5) Platelet Count 172 x10^3/uL (140-400) Neutrophils (%) (Auto) 70 % (31-73) Lymphocytes (%) (Auto) 16 % (24-48) Monocytes (%) (Auto) 11 % (0-9) Eosinophils (%) (Auto) 3 % (0-3) Basophils (%) (Auto) 0 % (0-3) Neutrophils # (Auto) 4.8 x10^3uL (1.8-7.7) Lymphocytes # (Auto) 1.1 x10^3/uL (1.0-4.8) Monocytes # (Auto) 0.7 x10^3/uL (0.0-1.1) Eosinophils # (Auto) 0.2 x10^3/uL (0.0-0.7) Basophils # (Auto) 0.0 x10^3/uL (0.0-0.2) Sodium Level 144 mmol/L (136-145) Potassium Level 3.9 mmol/L (3.5-5.1) Chloride Level 106 mmol/L (98-107) Carbon Dioxide Level 31 mmol/L (21-32) Anion Gap 7 (6-14) Blood Urea Nitrogen 24 mg/dL (7-20) Creatinine 1.4 mg/dL (0.6-1.0) Estimated GFR (Cockcroft-Gault) 44.5 Glucose Level 66 mg/dL (70-99) Calcium Level 9.2 mg/dL (8.5-10.1) Test 06/15/18 11:42 06/15/18 16:41 06/15/18 20:23 06/16/18 06:15 Glucose (Fingerstick) 112 mg/dL (70-99) 162 mg/dL (70-99) 155 mg/dL (70-99) White Blood Count 6.8 x10^3/uL (4.0-11.0) Red Blood Count 3.24 x10^6/uL (3.50-5.40) Hemoglobin 9.9 g/dL (12.0-15.5) Hematocrit 30.7 % (36.0-47.0) Mean Corpuscular Volume 95 fL (79-100) Mean Corpuscular Hemoglobin 31 pg (25-35) Mean Corpuscular Hemoglobin Concent 32 g/dL (31-37) Red Cell Distribution Width 14.9 % (11.5-14.5) Platelet Count 165 x10^3/uL (140-400) Neutrophils (%) (Auto) 71 % (31-73) Lymphocytes (%) (Auto) 15 % (24-48) Monocytes (%) (Auto) 11 % (0-9) Eosinophils (%) (Auto) 3 % (0-3) Basophils (%) (Auto) 0 % (0-3) Neutrophils # (Auto) 4.9 x10^3uL (1.8-7.7) Lymphocytes # (Auto) 1.0 x10^3/uL (1.0-4.8) Monocytes # (Auto) 0.7 x10^3/uL (0.0-1.1) Eosinophils # (Auto) 0.2 x10^3/uL (0.0-0.7) Basophils # (Auto) 0.0 x10^3/uL (0.0-0.2) Sodium Level 145 mmol/L (136-145) Potassium Level 4.0 mmol/L (3.5-5.1) Chloride Level 107 mmol/L (98-107) Carbon Dioxide Level 34 mmol/L (21-32) Anion Gap 4 (6-14) Blood Urea Nitrogen 24 mg/dL (7-20) Creatinine 1.4 mg/dL (0.6-1.0) Estimated GFR (Cockcroft-Gault) 44.5 Glucose Level 104 mg/dL (70-99) Calcium Level 9.7 mg/dL (8.5-10.1) Magnesium Level 2.0 mg/dL (1.8-2.4) Test 06/16/18 07:30 06/16/18 11:49 Glucose (Fingerstick) 102 mg/dL (70-99) 214 mg/dL (70-99) Laboratory Tests Test 06/15/18 16:41 06/15/18 20:23 06/16/18 06:15 06/16/18 07:30 Glucose (Fingerstick) 162 mg/dL (70-99) 155 mg/dL (70-99) 102 mg/dL (70-99) White Blood Count 6.8 x10^3/uL (4.0-11.0) Red Blood Count 3.24 x10^6/uL (3.50-5.40) Hemoglobin 9.9 g/dL (12.0-15.5) Hematocrit 30.7 % (36.0-47.0) Mean Corpuscular Volume 95 fL (79-100) Mean Corpuscular Hemoglobin 31 pg (25-35) Mean Corpuscular Hemoglobin Concent 32 g/dL (31-37) Red Cell Distribution Width 14.9 % (11.5-14.5) Platelet Count 165 x10^3/uL (140-400) Neutrophils (%) (Auto) 71 % (31-73) Lymphocytes (%) (Auto) 15 % (24-48) Monocytes (%) (Auto) 11 % (0-9) Eosinophils (%) (Auto) 3 % (0-3) Basophils (%) (Auto) 0 % (0-3) Neutrophils # (Auto) 4.9 x10^3uL (1.8-7.7) Lymphocytes # (Auto) 1.0 x10^3/uL (1.0-4.8) Monocytes # (Auto) 0.7 x10^3/uL (0.0-1.1) Eosinophils # (Auto) 0.2 x10^3/uL (0.0-0.7) Basophils # (Auto) 0.0 x10^3/uL (0.0-0.2) Sodium Level 145 mmol/L (136-145) Potassium Level 4.0 mmol/L (3.5-5.1) Chloride Level 107 mmol/L (98-107) Carbon Dioxide Level 34 mmol/L (21-32) Anion Gap 4 (6-14) Blood Urea Nitrogen 24 mg/dL (7-20) Creatinine 1.4 mg/dL (0.6-1.0) Estimated GFR (Cockcroft-Gault) 44.5 Glucose Level 104 mg/dL (70-99) Calcium Level 9.7 mg/dL (8.5-10.1) Magnesium Level 2.0 mg/dL (1.8-2.4) Test 06/16/18 11:49 Glucose (Fingerstick) 214 mg/dL (70-99) Medications Active Scripts Medications Dose Route/Sig Max Daily Dose Days Date Category Oxybutynin Chloride 5 Mg Tablet 10 Mg PO HS 06/12/18 Reported Levemir Flextouch (Insulin Detemir) 100 Unit/1 Ml Insuln.pen 40 Unit SQ HS 06/12/18 Reported Pioglitazone Hcl 30 Mg Tablet 30 Mg PO DAILY 06/12/18 Reported Zoloft (Sertraline Hcl) 50 Mg Tablet 1 Tab PO DAILY 06/12/18 Reported Hydrocodone-Apap 5-325 (Hydrocodone Bit/Acetaminophen) 1 Each Tablet 1 Tab PO PRN Q4HRS PRN 28 08/09/16 Rx Carvedilol (Carvedilol) 12.5 Mg Tablet 12.5 Mg PO BIDWMEALS 07/21/16 Reported Atorvastatin Calcium 40 Mg Tablet 40 Mg PO HS 07/21/16 Reported Novolog Flexpen (Insulin Aspart) 100 Unit/1 Ml Insuln.pen 0 Units SQ TIDWMEALS 30 03/17/16 Rx Aspirin Ec (Aspirin) 81 Mg Tablet. 81 Mg PO 03/14/16 Reported Amlodipine Besylate 10 Mg Tablet 10 Mg PO DAILY 03/14/16 Reported Donepezil Hcl 10 Mg Tablet 10 Mg PO HS 03/14/16 Reported Losartan Potassium 100 Mg Tablet 100 Mg PO DAILY 07/24/13 Reported Impression . IMPRESSION: 1. Acute hypercapnic hypoxemic respiratory failure. 2. Abnormal x-ray compatible with pneumonia, possibly gram negative. 3. Generalized weakness. 4. Renal insufficiency. 5. Elevated BNP. 6. Obstructive sleep apnea. 7. Suspect secondary pulmonary hypertension. 8. Suspect right-sided heart failure. 9. NEGATIVE DVT IMPRESSION: No sonographic evidence of acute DVT of the bilateral lower extremity deep veins. Plan . RESP STATUS IS COMPENSATE SPOKE WITH DR FARLEY D/C SOON OK WILL NEED REHAB SHE IS VERY WEAK WILL CONTINUE THE SAME WILL NEED REHAB OUT PT SLEEP STUDY ALLEN CHEEK MD Jun 16, 2018 12:21
[2018-06-16] MEDS: ATORVASTATIN CALCIUM 40 MG TABLET. PO SCH (21:28)
[2018-06-16] MEDS: DONEPEZIL HCL 10 MG TABLET. PO SCH (21:29)
[2018-06-16] MEDS: INSULIN GLARGINE 300 UNITS/3 ML INSULN.PEN. SQ SCH (21:32)
[2018-06-17 03:00] VITALS: BP 150/63
[2018-06-17 06:18] LABS: BASO % 0 % (0-3); EOS # 0.2 x10^3/uL (0.0-0.7); EOS % 3 % (0-3); HEMATOCRIT 29.9 % (36.0-47.0); HEMOGLOBIN 9.6 g/dL (12.0-15.5); LYMPH # 1.2 x10^3/uL (1.0-4.8); LYMPH % 18 % (24-48); MEAN CORPUSCULAR HEMOGLOBIN 31 pg (25-35); MEAN CORPUSCULAR HGB CONC 32 g/dL (31-37); MEAN CORPUSCULAR VOLUME 95 fL (79-100); MONO # 0.7 x10^3/uL (0.0-1.1); MONO % 10 % (0-9); NEUT # 4.6 x10^3uL (1.8-7.7); NEUT % 69 % (31-73); PLATELET COUNT 156 x10^3/uL (140-400); RED BLOOD COUNT 3.15 x10^6/uL (3.50-5.40); WHITE BLOOD COUNT 6.6 x10^3/uL (4.0-11.0)
[2018-06-17 06:36] LABS: ALBUMIN 2.7 g/dL (3.4-5.0); ALBUMIN/GLOBULIN RATIO 0.8 (1.0-1.7); CALCIUM 9.2 mg/dL (8.5-10.1); CREATININE 1.3 mg/dL (0.6-1.0); GFR 48.4; POTASSIUM 3.7 mmol/L (3.5-5.1); TOTAL BILIRUBIN 0.4 mg/dL (0.2-1.0); TOTAL PROTEIN 6.1 g/dL (6.4-8.2)
[2018-06-17 07:00] VITALS: BP 152/59
[2018-06-17] MEDS: IPRATRPIUM/ALBUTEROL 0.5/2.5MG 3 ML NEBU. NEB SCH ×4 (07:29→20:00)
[2018-06-17] MEDS: INSULIN LISPRO 300 UNITS/3 ML INSULN.PEN. SQ SCH ×3 (08:00→16:29)
[2018-06-17] MEDS: ASPIRIN ENTERIC COATED 81 MG TABLET.DR. PO SCH (08:14)
[2018-06-17] MEDS: AZITHROMYCIN 250 MG TABLET. PO SCH (08:14)
[2018-06-17] MEDS: OXYBUTYNIN CHLORIDE 5 MG TABLET PO SCH ×2 (08:15→20:48)
[2018-06-17] MEDS: BENZONATATE 100 MG CAPSULE. PO SCH ×3 (08:15→20:48)
[2018-06-17] MEDS: LOSARTAN POTASSIUM 50 MG TABLET. PO SCH (08:15)
[2018-06-17] MEDS: LACTOBACILLUS RHAMNOSUS GG 1 CAPSULE. PO SCH ×2 (08:16→20:48)
[2018-06-17] MEDS: PIOGLITAZONE 15 MG TABLET. PO SCH (08:16)
[2018-06-17] MEDS: SERTRALINE 50 MG TABLET. PO SCH (08:16)
[2018-06-17] MEDS: amLODIPine BESYLATE 10 MG TABLET PO SCH (08:16)
[2018-06-17] MEDS: cefTRIAXone IV Push 1 GM VIAL. IVP SCH (08:17)
[2018-06-17] MEDS: DEXTROSE 50% 25 GM / 50ML DISP.SYRIN. IV PRN (08:18)
--- NOTE | 2018-06-17 09:48 | PDOC ---
PULMONARY PROGRESS NOTES Subjective PT LESS SOA TODAY Vitals Vital Signs Date Time Temp Pulse Resp B/P (MAP) Pulse Ox O2 Delivery O2 Flow Rate FiO2 06/17/18 08:16 69 152/59 06/17/18 07:29 96 Nasal Cannula 3.0 06/17/18 07:00 98.6 18 98.6 ROS: No Nausea, No Chest Pain, No Abdominal Pain, No Increase Cough General: Alert, No acute distress Lungs: Wheezing Cardiovascular: S1, S2 Abdomen: Soft, Non-tender Neuro Exam: Alert Extremities: No Edema Skin: Warm Labs Laboratory Tests Test 06/15/18 11:42 06/15/18 16:41 06/15/18 20:23 06/16/18 06:15 Glucose (Fingerstick) 112 mg/dL (70-99) 162 mg/dL (70-99) 155 mg/dL (70-99) White Blood Count 6.8 x10^3/uL (4.0-11.0) Red Blood Count 3.24 x10^6/uL (3.50-5.40) Hemoglobin 9.9 g/dL (12.0-15.5) Hematocrit 30.7 % (36.0-47.0) Mean Corpuscular Volume 95 fL (79-100) Mean Corpuscular Hemoglobin 31 pg (25-35) Mean Corpuscular Hemoglobin Concent 32 g/dL (31-37) Red Cell Distribution Width 14.9 % (11.5-14.5) Platelet Count 165 x10^3/uL (140-400) Neutrophils (%) (Auto) 71 % (31-73) Lymphocytes (%) (Auto) 15 % (24-48) Monocytes (%) (Auto) 11 % (0-9) Eosinophils (%) (Auto) 3 % (0-3) Basophils (%) (Auto) 0 % (0-3) Neutrophils # (Auto) 4.9 x10^3uL (1.8-7.7) Lymphocytes # (Auto) 1.0 x10^3/uL (1.0-4.8) Monocytes # (Auto) 0.7 x10^3/uL (0.0-1.1) Eosinophils # (Auto) 0.2 x10^3/uL (0.0-0.7) Basophils # (Auto) 0.0 x10^3/uL (0.0-0.2) Sodium Level 145 mmol/L (136-145) Potassium Level 4.0 mmol/L (3.5-5.1) Chloride Level 107 mmol/L (98-107) Carbon Dioxide Level 34 mmol/L (21-32) Anion Gap 4 (6-14) Blood Urea Nitrogen 24 mg/dL (7-20) Creatinine 1.4 mg/dL (0.6-1.0) Estimated GFR (Cockcroft-Gault) 44.5 Glucose Level 104 mg/dL (70-99) Calcium Level 9.7 mg/dL (8.5-10.1) Magnesium Level 2.0 mg/dL (1.8-2.4) Test 06/16/18 07:30 06/16/18 11:49 06/16/18 16:58 06/16/18 20:40 Glucose (Fingerstick) 102 mg/dL (70-99) 214 mg/dL (70-99) 123 mg/dL (70-99) 155 mg/dL (70-99) Test 06/17/18 05:30 06/17/18 08:06 06/17/18 08:39 White Blood Count 6.6 x10^3/uL (4.0-11.0) Red Blood Count 3.15 x10^6/uL (3.50-5.40) Hemoglobin 9.6 g/dL (12.0-15.5) Hematocrit 29.9 % (36.0-47.0) Mean Corpuscular Volume 95 fL (79-100) Mean Corpuscular Hemoglobin 31 pg (25-35) Mean Corpuscular Hemoglobin Concent 32 g/dL (31-37) Red Cell Distribution Width 15.0 % (11.5-14.5) Platelet Count 156 x10^3/uL (140-400) Neutrophils (%) (Auto) 69 % (31-73) Lymphocytes (%) (Auto) 18 % (24-48) Monocytes (%) (Auto) 10 % (0-9) Eosinophils (%) (Auto) 3 % (0-3) Basophils (%) (Auto) 0 % (0-3) Neutrophils # (Auto) 4.6 x10^3uL (1.8-7.7) Lymphocytes # (Auto) 1.2 x10^3/uL (1.0-4.8) Monocytes # (Auto) 0.7 x10^3/uL (0.0-1.1) Eosinophils # (Auto) 0.2 x10^3/uL (0.0-0.7) Basophils # (Auto) 0.0 x10^3/uL (0.0-0.2) Sodium Level 146 mmol/L (136-145) Potassium Level 3.7 mmol/L (3.5-5.1) Chloride Level 107 mmol/L (98-107) Carbon Dioxide Level 31 mmol/L (21-32) Anion Gap 8 (6-14) Blood Urea Nitrogen 21 mg/dL (7-20) Creatinine 1.3 mg/dL (0.6-1.0) Estimated GFR (Cockcroft-Gault) 48.4 BUN/Creatinine Ratio 16 (6-20) Glucose Level 80 mg/dL (70-99) Calcium Level 9.2 mg/dL (8.5-10.1) Total Bilirubin 0.4 mg/dL (0.2-1.0) Aspartate Amino Transf (AST/SGOT) 13 U/L (15-37) Alanine Aminotransferase (ALT/SGPT) 15 U/L (14-59) Alkaline Phosphatase 92 U/L (46-116) Total Protein 6.1 g/dL (6.4-8.2) Albumin 2.7 g/dL (3.4-5.0) Albumin/Globulin Ratio 0.8 (1.0-1.7) Glucose (Fingerstick) 62 mg/dL (70-99) 86 mg/dL (70-99) Laboratory Tests Test 06/16/18 11:49 06/16/18 16:58 06/16/18 20:40 06/17/18 05:30 Glucose (Fingerstick) 214 mg/dL (70-99) 123 mg/dL (70-99) 155 mg/dL (70-99) White Blood Count 6.6 x10^3/uL (4.0-11.0) Red Blood Count 3.15 x10^6/uL (3.50-5.40) Hemoglobin 9.6 g/dL (12.0-15.5) Hematocrit 29.9 % (36.0-47.0) Mean Corpuscular Volume 95 fL (79-100) Mean Corpuscular Hemoglobin 31 pg (25-35) Mean Corpuscular Hemoglobin Concent 32 g/dL (31-37) Red Cell Distribution Width 15.0 % (11.5-14.5) Platelet Count 156 x10^3/uL (140-400) Neutrophils (%) (Auto) 69 % (31-73) Lymphocytes (%) (Auto) 18 % (24-48) Monocytes (%) (Auto) 10 % (0-9) Eosinophils (%) (Auto) 3 % (0-3) Basophils (%) (Auto) 0 % (0-3) Neutrophils # (Auto) 4.6 x10^3uL (1.8-7.7) Lymphocytes # (Auto) 1.2 x10^3/uL (1.0-4.8) Monocytes # (Auto) 0.7 x10^3/uL (0.0-1.1) Eosinophils # (Auto) 0.2 x10^3/uL (0.0-0.7) Basophils # (Auto) 0.0 x10^3/uL (0.0-0.2) Sodium Level 146 mmol/L (136-145) Potassium Level 3.7 mmol/L (3.5-5.1) Chloride Level 107 mmol/L (98-107) Carbon Dioxide Level 31 mmol/L (21-32) Anion Gap 8 (6-14) Blood Urea Nitrogen 21 mg/dL (7-20) Creatinine 1.3 mg/dL (0.6-1.0) Estimated GFR (Cockcroft-Gault) 48.4 BUN/Creatinine Ratio 16 (6-20) Glucose Level 80 mg/dL (70-99) Calcium Level 9.2 mg/dL (8.5-10.1) Total Bilirubin 0.4 mg/dL (0.2-1.0) Aspartate Amino Transf (AST/SGOT) 13 U/L (15-37) Alanine Aminotransferase (ALT/SGPT) 15 U/L (14-59) Alkaline Phosphatase 92 U/L (46-116) Total Protein 6.1 g/dL (6.4-8.2) Albumin 2.7 g/dL (3.4-5.0) Albumin/Globulin Ratio 0.8 (1.0-1.7) Test 06/17/18 08:06 06/17/18 08:39 Glucose (Fingerstick) 62 mg/dL (70-99) 86 mg/dL (70-99) Medications Active Scripts Medications Dose Route/Sig Max Daily Dose Days Date Category Oxybutynin Chloride 5 Mg Tablet 10 Mg PO HS 06/12/18 Reported Levemir Flextouch (Insulin Detemir) 100 Unit/1 Ml Insuln.pen 40 Unit SQ HS 06/12/18 Reported Pioglitazone Hcl 30 Mg Tablet 30 Mg PO DAILY 06/12/18 Reported Zoloft (Sertraline Hcl) 50 Mg Tablet 1 Tab PO DAILY 06/12/18 Reported Hydrocodone-Apap 5-325 (Hydrocodone Bit/Acetaminophen) 1 Each Tablet 1 Tab PO PRN Q4HRS PRN 28 08/09/16 Rx Carvedilol (Carvedilol) 12.5 Mg Tablet 12.5 Mg PO BIDWMEALS 07/21/16 Reported Atorvastatin Calcium 40 Mg Tablet 40 Mg PO HS 07/21/16 Reported Novolog Flexpen (Insulin Aspart) 100 Unit/1 Ml Insuln.pen 0 Units SQ TIDWMEALS 30 03/17/16 Rx Aspirin Ec (Aspirin) 81 Mg Tablet.dr 81 Mg PO 03/14/16 Reported Amlodipine Besylate 10 Mg Tablet 10 Mg PO DAILY 03/14/16 Reported Donepezil Hcl 10 Mg Tablet 10 Mg PO HS 03/14/16 Reported Losartan Potassium 100 Mg Tablet 100 Mg PO DAILY 07/24/13 Reported Impression . IMPRESSION: 1. Acute hypercapnic hypoxemic respiratory failure. 2. Abnormal x-ray compatible with pneumonia, possibly gram negative. 3. Generalized weakness. 4. Renal insufficiency. 5. Elevated BNP. 6. Obstructive sleep apnea. 7. Suspect secondary pulmonary hypertension. 8. Suspect right-sided heart failure. 9. NEGATIVE DVT IMPRESSION: No sonographic evidence of acute DVT of the bilateral lower extremity deep veins. Plan . RESP STATUS IS COMPENSATE DISPOSITION IN PLAY D/C SOON OK WILL NEED REHAB SHE IS VERY WEAK WILL CONTINUE THE SAME WILL NEED REHAB OUT PT SLEEP STUDY ALLEN CHEEK MD Jun 17, 2018 09:48
--- NOTE | 2018-06-17 10:30 | NUR ---
SW following pt. Spoke with Pt's daughter, Wing via phone regarding decision on SNU. Wing reported she had visited [facility] but she actually visited inpatient rehab as they are located on 2nd floor and [facility] is on 3rd, 4th floor of the same building. SW extensively discussed the difference between SNU vs Rehab and insurance coverage. SW also discussed pt appears to be doing better with PT and the possibility of pt going home with home health if insurance declines SNU. Pt's sister verbalized understanding and reported she will visit [facility] and [facility] today. SW discussed medicare ratings for [facility] using Medicare.gov. Wing is agreeable referral being sent to [facility] and [facility]. SW phoned and faxed referral. Pt admission and acceptance pending. SW will continue to follow.
--- NOTE | 2018-06-17 10:31 | PDOC ---
PROGRESS NOTES Chief Complaint Chief Complaint IMPRESSION SOA, CHF exacerbation acute hypercapnic, hypoxemic respiratory failure. Acute hypoxic respiratory failure secondary to PNEUMONIA / CHF acute diastolic CHF; LVEF 55% per echo Malignant hypertension DM2/HLP/morbid OBESITY CKD3 ALEXYS/pulmonary HTN generalized weakness plan oupt sleep study snf bed rehab d/c planning PENDING History of Present Illness History of Present Illness Patient was seen and examined this AM. She complains of difficulty sleeping. Sitting comfortably in chair. Vitals Vitals Vital Signs Date Time Temp Pulse Resp B/P (MAP) Pulse Ox O2 Delivery O2 Flow Rate FiO2 06/17/18 08:16 69 152/59 06/17/18 07:29 96 Nasal Cannula 3.0 06/17/18 07:00 98.6 18 98.6 Physical Exam General: Alert, Oriented X3, Cooperative, mild distress Heart: Regular rate, Normal S1, Normal S2 Lungs: Wheezing Abdomen: Normal bowel sounds, Soft, No tenderness Extremities: Normal pulses, Other (2+ bilateral LE edema ) Skin: No breakdown, No significant lesion Labs LABS Laboratory Tests Test 06/16/18 11:49 06/16/18 16:58 06/16/18 20:40 06/17/18 05:30 Glucose (Fingerstick) 214 mg/dL (70-99) 123 mg/dL (70-99) 155 mg/dL (70-99) White Blood Count 6.6 x10^3/uL (4.0-11.0) Red Blood Count 3.15 x10^6/uL (3.50-5.40) Hemoglobin 9.6 g/dL (12.0-15.5) Hematocrit 29.9 % (36.0-47.0) Mean Corpuscular Volume 95 fL (79-100) Mean Corpuscular Hemoglobin 31 pg (25-35) Mean Corpuscular Hemoglobin Concent 32 g/dL (31-37) Red Cell Distribution Width 15.0 % (11.5-14.5) Platelet Count 156 x10^3/uL (140-400) Neutrophils (%) (Auto) 69 % (31-73) Lymphocytes (%) (Auto) 18 % (24-48) Monocytes (%) (Auto) 10 % (0-9) Eosinophils (%) (Auto) 3 % (0-3) Basophils (%) (Auto) 0 % (0-3) Neutrophils # (Auto) 4.6 x10^3uL (1.8-7.7) Lymphocytes # (Auto) 1.2 x10^3/uL (1.0-4.8) Monocytes # (Auto) 0.7 x10^3/uL (0.0-1.1) Eosinophils # (Auto) 0.2 x10^3/uL (0.0-0.7) Basophils # (Auto) 0.0 x10^3/uL (0.0-0.2) Sodium Level 146 mmol/L (136-145) Potassium Level 3.7 mmol/L (3.5-5.1) Chloride Level 107 mmol/L (98-107) Carbon Dioxide Level 31 mmol/L (21-32) Anion Gap 8 (6-14) Blood Urea Nitrogen 21 mg/dL (7-20) Creatinine 1.3 mg/dL (0.6-1.0) Estimated GFR (Cockcroft-Gault) 48.4 BUN/Creatinine Ratio 16 (6-20) Glucose Level 80 mg/dL (70-99) Calcium Level 9.2 mg/dL (8.5-10.1) Total Bilirubin 0.4 mg/dL (0.2-1.0) Aspartate Amino Transf (AST/SGOT) 13 U/L (15-37) Alanine Aminotransferase (ALT/SGPT) 15 U/L (14-59) Alkaline Phosphatase 92 U/L (46-116) Total Protein 6.1 g/dL (6.4-8.2) Albumin 2.7 g/dL (3.4-5.0) Albumin/Globulin Ratio 0.8 (1.0-1.7) Test 06/17/18 08:06 06/17/18 08:39 Glucose (Fingerstick) 62 mg/dL (70-99) 86 mg/dL (70-99) Assessment and Plan Assessmemt and Plan Problems Medical Problems: (1) Congestive heart failure (CHF) Status: Acute SW extensively discussed the difference between SNU vs Rehab and insurance coverage. SW also discussed pt appears to be doing better with PT and the possibility of pt going home with home health if insurance declines SNU. Pt's sister verbalized understanding and reported she will visit [facility] and [facility] 06/17 Comment Review of Relevant I have reviewed the following items joel (where applicable) has been applied. Labs Laboratory Tests Test 06/15/18 11:42 06/15/18 16:41 06/15/18 20:23 06/16/18 06:15 Glucose (Fingerstick) 112 mg/dL (70-99) 162 mg/dL (70-99) 155 mg/dL (70-99) White Blood Count 6.8 x10^3/uL (4.0-11.0) Red Blood Count 3.24 x10^6/uL (3.50-5.40) Hemoglobin 9.9 g/dL (12.0-15.5) Hematocrit 30.7 % (36.0-47.0) Mean Corpuscular Volume 95 fL (79-100) Mean Corpuscular Hemoglobin 31 pg (25-35) Mean Corpuscular Hemoglobin Concent 32 g/dL (31-37) Red Cell Distribution Width 14.9 % (11.5-14.5) Platelet Count 165 x10^3/uL (140-400) Neutrophils (%) (Auto) 71 % (31-73) Lymphocytes (%) (Auto) 15 % (24-48) Monocytes (%) (Auto) 11 % (0-9) Eosinophils (%) (Auto) 3 % (0-3) Basophils (%) (Auto) 0 % (0-3) Neutrophils # (Auto) 4.9 x10^3uL (1.8-7.7) Lymphocytes # (Auto) 1.0 x10^3/uL (1.0-4.8) Monocytes # (Auto) 0.7 x10^3/uL (0.0-1.1) Eosinophils # (Auto) 0.2 x10^3/uL (0.0-0.7) Basophils # (Auto) 0.0 x10^3/uL (0.0-0.2) Sodium Level 145 mmol/L (136-145) Potassium Level 4.0 mmol/L (3.5-5.1) Chloride Level 107 mmol/L (98-107) Carbon Dioxide Level 34 mmol/L (21-32) Anion Gap 4 (6-14) Blood Urea Nitrogen 24 mg/dL (7-20) Creatinine 1.4 mg/dL (0.6-1.0) Estimated GFR (Cockcroft-Gault) 44.5 Glucose Level 104 mg/dL (70-99) Calcium Level 9.7 mg/dL (8.5-10.1) Magnesium Level 2.0 mg/dL (1.8-2.4) Test 06/16/18 07:30 06/16/18 11:49 06/16/18 16:58 06/16/18 20:40 Glucose (Fingerstick) 102 mg/dL (70-99) 214 mg/dL (70-99) 123 mg/dL (70-99) 155 mg/dL (70-99) Test 06/17/18 05:30 06/17/18 08:06 06/17/18 08:39 White Blood Count 6.6 x10^3/uL (4.0-11.0) Red Blood Count 3.15 x10^6/uL (3.50-5.40) Hemoglobin 9.6 g/dL (12.0-15.5) Hematocrit 29.9 % (36.0-47.0) Mean Corpuscular Volume 95 fL (79-100) Mean Corpuscular Hemoglobin 31 pg (25-35) Mean Corpuscular Hemoglobin Concent 32 g/dL (31-37) Red Cell Distribution Width 15.0 % (11.5-14.5) Platelet Count 156 x10^3/uL (140-400) Neutrophils (%) (Auto) 69 % (31-73) Lymphocytes (%) (Auto) 18 % (24-48) Monocytes (%) (Auto) 10 % (0-9) Eosinophils (%) (Auto) 3 % (0-3) Basophils (%) (Auto) 0 % (0-3) Neutrophils # (Auto) 4.6 x10^3uL (1.8-7.7) Lymphocytes # (Auto) 1.2 x10^3/uL (1.0-4.8) Monocytes # (Auto) 0.7 x10^3/uL (0.0-1.1) Eosinophils # (Auto) 0.2 x10^3/uL (0.0-0.7) Basophils # (Auto) 0.0 x10^3/uL (0.0-0.2) Sodium Level 146 mmol/L (136-145) Potassium Level 3.7 mmol/L (3.5-5.1) Chloride Level 107 mmol/L (98-107) Carbon Dioxide Level 31 mmol/L (21-32) Anion Gap 8 (6-14) Blood Urea Nitrogen 21 mg/dL (7-20) Creatinine 1.3 mg/dL (0.6-1.0) Estimated GFR (Cockcroft-Gault) 48.4 BUN/Creatinine Ratio 16 (6-20) Glucose Level 80 mg/dL (70-99) Calcium Level 9.2 mg/dL (8.5-10.1) Total Bilirubin 0.4 mg/dL (0.2-1.0) Aspartate Amino Transf (AST/SGOT) 13 U/L (15-37) Alanine Aminotransferase (ALT/SGPT) 15 U/L (14-59) Alkaline Phosphatase 92 U/L (46-116) Total Protein 6.1 g/dL (6.4-8.2) Albumin 2.7 g/dL (3.4-5.0) Albumin/Globulin Ratio 0.8 (1.0-1.7) Glucose (Fingerstick) 62 mg/dL (70-99) 86 mg/dL (70-99) Laboratory Tests Test 06/16/18 11:49 06/16/18 16:58 06/16/18 20:40 06/17/18 05:30 Glucose (Fingerstick) 214 mg/dL (70-99) 123 mg/dL (70-99) 155 mg/dL (70-99) White Blood Count 6.6 x10^3/uL (4.0-11.0) Red Blood Count 3.15 x10^6/uL (3.50-5.40) Hemoglobin 9.6 g/dL (12.0-15.5) Hematocrit 29.9 % (36.0-47.0) Mean Corpuscular Volume 95 fL (79-100) Mean Corpuscular Hemoglobin 31 pg (25-35) Mean Corpuscular Hemoglobin Concent 32 g/dL (31-37) Red Cell Distribution Width 15.0 % (11.5-14.5) Platelet Count 156 x10^3/uL (140-400) Neutrophils (%) (Auto) 69 % (31-73) Lymphocytes (%) (Auto) 18 % (24-48) Monocytes (%) (Auto) 10 % (0-9) Eosinophils (%) (Auto) 3 % (0-3) Basophils (%) (Auto) 0 % (0-3) Neutrophils # (Auto) 4.6 x10^3uL (1.8-7.7) Lymphocytes # (Auto) 1.2 x10^3/uL (1.0-4.8) Monocytes # (Auto) 0.7 x10^3/uL (0.0-1.1) Eosinophils # (Auto) 0.2 x10^3/uL (0.0-0.7) Basophils # (Auto) 0.0 x10^3/uL (0.0-0.2) Sodium Level 146 mmol/L (136-145) Potassium Level 3.7 mmol/L (3.5-5.1) Chloride Level 107 mmol/L (98-107) Carbon Dioxide Level 31 mmol/L (21-32) Anion Gap 8 (6-14) Blood Urea Nitrogen 21 mg/dL (7-20) Creatinine 1.3 mg/dL (0.6-1.0) Estimated GFR (Cockcroft-Gault) 48.4 BUN/Creatinine Ratio 16 (6-20) Glucose Level 80 mg/dL (70-99) Calcium Level 9.2 mg/dL (8.5-10.1) Total Bilirubin 0.4 mg/dL (0.2-1.0) Aspartate Amino Transf (AST/SGOT) 13 U/L (15-37) Alanine Aminotransferase (ALT/SGPT) 15 U/L (14-59) Alkaline Phosphatase 92 U/L (46-116) Total Protein 6.1 g/dL (6.4-8.2) Albumin 2.7 g/dL (3.4-5.0) Albumin/Globulin Ratio 0.8 (1.0-1.7) Test 06/17/18 08:06 06/17/18 08:39 Glucose (Fingerstick) 62 mg/dL (70-99) 86 mg/dL (70-99) Microbiology 06/12/18 Blood Culture - Final, Complete NO GROWTH AFTER 5 DAYS Medications Current Medications Albuterol Sulfate (Ventolin Neb Soln) 2.5 mg STK-MED ONCE .ROUTE ; Start 1/30/ 19 at 07:59; Stop 06/12/18 at 08:01; Status DC Sodium Chloride 1,000 ml @ 1,000 mls/hr 1X ONCE IV Last administered on at 09:00; Start 06/12/18 at 08:15; Stop 06/12/18 at 09:14; Status DC Albuterol Sulfate (Ventolin Neb Soln) 10 mg 1X ONCE CONT NEB Last administered on 06/12/18at 08:28; Start 06/12/18 at 08:30; Stop 06/12/18 at 08:31 ; Status DC Clonidine HCl (Catapres) 0.2 mg 1X ONCE PO Last administered on 06/12/18at 08: 57; Start 06/12/18 at 09:00; Stop 06/12/18 at 09:01; Status DC Furosemide (Lasix) 40 mg 1X STAT IVP Last administered on 06/12/18at 09:55; Start 06/12/18 at 09:42; Stop 06/12/18 at 09:43; Status DC Ceftriaxone Sodium (Rocephin) 1 gm 1X ONCE IVP Last administered on 06/12/18at 09:58; Start 06/12/18 at 10:00; Stop 06/12/18 at 10:01; Status DC Azithromycin 250 ml @ 250 mls/hr 1X ONCE IV Last administered on 06/12/18at 10 :34; Start 06/12/18 at 10:00; Stop 06/12/18 at 10:59; Status DC Albuterol/ Ipratropium (Duoneb) 3 ml RTQID NEB Last administered on 06/13/18at 15:09; Start 06/12/18 at 12:00; Stop 06/13/18 at 11:59; Status DC Labetalol HCl (Normodyne Iv Push) 20 mg 1X ONCE IVP ; Start 06/12/18 at 10:15; Stop 06/12/18 at 10:34; Status DC Amlodipine Besylate (Norvasc) 10 mg DAILY PO Last administered on 06/17/18at 08: 16; Start 06/12/18 at 13:00 Aspirin (Ecotrin) 81 mg DAILY PO Last administered on 06/17/18at 08:14; Start at 13:00 Atorvastatin Calcium (Lipitor) 40 mg HS PO Last administered on 06/16/18 21:28 ; Start 06/12/18 at 21:00 Carvedilol (Coreg) 12.5 mg BIDWMEALS PO Last administered on 06/12/18 14:08; Start 06/12/18 at 13:00; Stop 06/12/18 at 15:57; Status DC Oxybutynin Chloride (Ditropan) 5 mg BID PO Last administered on 06/17/18 08:15 ; Start 06/12/18 at 13:00 Sertraline HCl (Zoloft) 50 mg DAILY PO Last administered on 06/17/18 08:16; Start 06/12/18 at 13:00 Donepezil HCl (Aricept) 10 mg QHS PO Last administered on 06/16/18 21:29; Start 06/12/18 at 21:00 Non-Formulary Medication (Insulin Aspart (Novolog Flexpen)) TIDWMEALS SQ ; Start 06/12/18 at 17:00; Status UNV Insulin Glargine (Lantus) 40 units QHS SQ Last administered on 06/16/18 21:32; Start 06/12/18 at 21:00 Losartan Potassium (Cozaar) 100 mg DAILY PO Last administered on 06/17/18 08:15 ; Start 06/12/18 at 13:00 Pioglitazone HCl (Actos) 30 mg DAILY PO Last administered on 06/17/18 08:16; Start 06/12/18 at 13:00 Insulin Human Lispro (HumaLOG) 0-7 UNITS TIDWMEALS SQ Last administered on 12:13; Start 06/12/18 at 13:00 Dextrose (Dextrose 50%-Water Syringe) 12.5 gm PRN Q15MIN PRN IV SEE COMMENTS Last administered on 06/17/18 08:18; Start 06/12/18 at 12:45 Azithromycin 500 mg/Sodium Chloride 250 ml @ 250 mls/hr Q24H IV Last administered on 06/16/18 08:50; Start 06/13/18 at 09:00; Stop 06/17/18 at 04:22; Status DC Ceftriaxone Sodium (Rocephin) 1 gm Q24H IVP Last administered on 06/17/18 08:17 ; Start 06/13/18 at 09:00 Lactobacillus Rhamnosus (Culturelle) 1 cap BID PO Last administered on 08:16; Start 06/12/18 at 21:00 Hydralazine HCl (Apresoline Inj) 10 mg PRN Q4HRS PRN IVP ELEVATED BP, SEE COMMENTS Last administered on 06/14/18 02:51; Start 06/12/18 at 16:00 Acetaminophen (Tylenol) 650 mg PRN Q6HRS PRN PO MILD PAIN Last administered on 06/12/18 17:20; Start 06/12/18 at 16:45 Furosemide (Lasix) 20 mg 1X ONCE IVP Last administered on 06/13/18 15:23; Start 06/13/18 at 15:15; Stop 06/13/18 at 15:16; Status DC Hydralazine HCl (Apresoline) 50 mg BID PO Last administered on 06/17/18 08:16; Start 06/13/18 at 21:00 Albuterol/ Ipratropium (Duoneb) 3 ml RTQID NEB Last administered on 06/17/18 07 :29; Start 06/13/18 at 17:00 Potassium Chloride (Klor-Con) 40 meq 1X ONCE PO Last administered on 17:26; Start 06/13/18 at 17:30; Stop 06/13/18 at 17:31; Status DC Furosemide (Lasix) 20 mg 1X ONCE IVP Last administered on 06/14/18 14:53; Start 06/14/18 at 14:15; Stop 06/14/18 at 14:21; Status DC Potassium Chloride (Klor-Con) 40 meq Q4H PO Last administered on 06/14/18 17:41 ; Start 06/14/18 at 14:15; Stop 06/14/18 at 18:16; Status DC Magnesium Sulfate 50 ml @ 25 mls/hr 1X ONCE IV Last administered on 06/14/18 15:59; Start 06/14/18 at 15:30; Stop 06/14/18 at 17:29; Status DC Throat Lozenges (Cepacol Sore Throat Lozenge) 1 nohelia PRN Q2HRS PRN PO SORE THROAT Last administered on 06/15/18at 17:05; Start 06/15/18 at 16:45 Benzonatate (Tessalon Perle) 100 mg [id number] PO Last administered on 06/17/18at 08: 15; Start 06/15/18 at 17:00 Azithromycin (Zithromax) 500 mg DAILY PO Last administered on 06/17/18at 08:14; Start 06/17/18 at 09:00 Active Scripts Active Hydrocodone-Apap 5-325 (Hydrocodone Bit/Acetaminophen) 1 Each Tablet 1 Tab PO PRN Q4HRS PRN 28 Days Novolog Flexpen (Insulin Aspart) 100 Unit/1 Ml Insuln.pen 0 Units SQ TIDWMEALS 30 Days Reported Oxybutynin Chloride 5 Mg Tablet 10 Mg PO HS Levemir Flextouch (Insulin Detemir) 100 Unit/1 Ml Insuln.pen 40 Unit SQ HS Pioglitazone Hcl 30 Mg Tablet 30 Mg PO DAILY Zoloft (Sertraline Hcl) 50 Mg Tablet 1 Tab PO DAILY Carvedilol (Carvedilol) 12.5 Mg Tablet 12.5 Mg PO BIDWMEALS Atorvastatin Calcium 40 Mg Tablet 40 Mg PO HS Aspirin Ec (Aspirin) 81 Mg Tablet.dr 81 Mg PO Amlodipine Besylate 10 Mg Tablet 10 Mg PO DAILY Donepezil Hcl 10 Mg Tablet 10 Mg PO HS Losartan Potassium 100 Mg Tablet 100 Mg PO DAILY Vitals/I & O Vital Sign - Last 24 Hours 06/16/18 06/16/18 06/16/18 06/16/18 11:45 11:56 15:30 16:05 Temp 98.5 98.2 98.5 98.2 Pulse 74 75 Resp 16 18 B/P (MAP) 106/58 (74) 162/66 (98) Pulse Ox 97 98 96 98 O2 Delivery Nasal Cannula Nasal Cannula Nasal Cannula Nasal Cannula O2 Flow Rate 3.0 3.0 3.0 3.0 06/16/18 06/16/18 06/16/18 06/16/18 19:00 20:00 20:14 21:09 Temp 98.0 98.7 98.0 98.7 Pulse 73 70 Resp 18 20 B/P (MAP) 147/69 (95) 165/56 (92) Pulse Ox 98 93 100 O2 Delivery Nasal Cannula Nasal Cannula Nasal Cannula Nasal Cannula O2 Flow Rate 3.0 2.5 3.0 2.5 06/16/18 06/16/18 06/16/18 06/16/18 21:27 23:00 23:00 23:30 Temp 98.7 98.7 98.7 98.7 Pulse 70 79 70 Resp 20 20 B/P (MAP) 165/56 177/60 (99) 165/56 (92) Pulse Ox 98 O2 Delivery Nasal Cannula Room Air BiPAP/CPAP O2 Flow Rate 2.5 06/17/18 06/17/18 06/17/18 06/17/18 01:05 03:00 07:00 07:29 Temp 98.7 98.6 98.7 98.6 Pulse 72 69 Resp 20 18 B/P (MAP) 150/63 (92) 152/59 (90) Pulse Ox 99 100 96 O2 Delivery BiPAP/CPAP Nasal Cannula Nasal Cannula Nasal Cannula O2 Flow Rate 2.5 2.5 3.0 06/17/18 06/17/18 06/17/18 08:15 08:16 08:16 Pulse 69 69 69 B/P (MAP) 152/59 152/59 152/59 Intake and Output 06/16/18 06/16/18 06/17/18 15:01 23:01 07:01 Intake Total 880 ml 150 ml 100 ml Balance 880 ml 150 ml 100 ml TINO FARLEY MD Jun 17, 2018 10:31
[2018-06-17 11:00] VITALS: BP 161/53
[2018-06-17 15:00] VITALS: BP 164/66
--- NOTE | 2018-06-17 15:10 | NUR ---
[facility] reported they no longer take [facility]. Amilcar Meneses still reviewing clinicals and pt's sister had visited facility. Pt's sister was not interested in other facilities this morning. Pt aware of [facility] evaluation. SW will continue to follow. JACE SAMAYOA.
--- NOTE | 2018-06-17 15:27 | RAD ---
Examination: CHEST AP ONLY History: PNEUMONITIS Comparison/Correlation: 06/12/2018 AP view of the chest Findings: Portable upright frontal view of the chest was obtained. Spinal rods are partially visualized. Heart size is borderline. Pulmonary vasculature is within upper limits of normal. Small bilateral pleural effusions are present. No focal consolidation. Retrocardiac opacity probably represents atelectasis or other consolidation noted. Impression: Bilateral pleural effusions and pulmonary vasculature congestion. Retrocardiac atelectasis or other consolidation. Findings are more evident since the prior exam. Electronically signed by: Jaguar Leblanc MD (06/17/2018 3:22 PM) [facility]
[2018-06-17 19:00] VITALS: BP 147/62
[2018-06-17] MEDS: DONEPEZIL HCL 10 MG TABLET. PO SCH (20:48)
[2018-06-17] MEDS: ATORVASTATIN CALCIUM 40 MG TABLET. PO SCH (20:48)
[2018-06-17] MEDS: INSULIN GLARGINE 300 UNITS/3 ML INSULN.PEN. SQ SCH (20:53)
[2018-06-17 23:00] VITALS: BP 163/72
[2018-06-18 03:00] VITALS: BP 157/68
[2018-06-18 05:13] LABS: BASO % 1 % (0-3); EOS # 0.2 x10^3/uL (0.0-0.7); EOS % 3 % (0-3); HEMATOCRIT 28.5 % (36.0-47.0); HEMOGLOBIN 9.2 g/dL (12.0-15.5); LYMPH # 1.1 x10^3/uL (1.0-4.8); LYMPH % 18 % (24-48); MEAN CORPUSCULAR HEMOGLOBIN 31 pg (25-35); MEAN CORPUSCULAR HGB CONC 32 g/dL (31-37); MEAN CORPUSCULAR VOLUME 95 fL (79-100); MONO # 0.7 x10^3/uL (0.0-1.1); MONO % 11 % (0-9); NEUT # 4.3 x10^3uL (1.8-7.7); NEUT % 68 % (31-73); PLATELET COUNT 157 x10^3/uL (140-400); RED BLOOD COUNT 3.02 x10^6/uL (3.50-5.40); RED CELL DISTRIBUTION WIDTH 14.8 % (11.5-14.5); WHITE BLOOD COUNT 6.3 x10^3/uL (4.0-11.0)
[2018-06-18 05:43] LABS: CALCIUM 9.6 mg/dL (8.5-10.1); CREATININE 1.2 mg/dL (0.6-1.0); GFR 53.1; POTASSIUM 3.6 mmol/L (3.5-5.1)
[2018-06-18 07:00] VITALS: BP 154/56
[2018-06-18] MEDS: INSULIN LISPRO 300 UNITS/3 ML INSULN.PEN. SQ SCH ×3 (07:16→16:38)
[2018-06-18] MEDS: IPRATRPIUM/ALBUTEROL 0.5/2.5MG 3 ML NEBU. NEB SCH ×4 (07:54→20:13)
--- NOTE | 2018-06-18 08:49 | NUR ---
[facility] following pt. Pt has been accepted at [facility] pending insurance approval. Insurance auth request was submitted yesterday and is currently pending. [facility] faxed updated clinicals and Bipap setting to [facility]. [facility] will continue to follow. JACE SAMAYOA. Addendum: 06/18/18 at 1156 by REGGIE PORTER Spoke with Torrie at [facility] and she reported pt is next on her list to review. Discussed with pt's sister, Wing. [facility] will continue to follow.
[2018-06-18] MEDS: PIOGLITAZONE 15 MG TABLET. PO SCH (09:42)
[2018-06-18] MEDS: AZITHROMYCIN 250 MG TABLET. PO SCH (09:43)
[2018-06-18] MEDS: SERTRALINE 50 MG TABLET. PO SCH (09:43)
[2018-06-18] MEDS: amLODIPine BESYLATE 10 MG TABLET PO SCH (09:43)
[2018-06-18] MEDS: BENZONATATE 100 MG CAPSULE. PO SCH ×3 (09:43→21:18)
[2018-06-18] MEDS: OXYBUTYNIN CHLORIDE 5 MG TABLET PO SCH ×2 (09:44→21:17)
[2018-06-18] MEDS: ASPIRIN ENTERIC COATED 81 MG TABLET.DR. PO SCH (09:44)
[2018-06-18] MEDS: LACTOBACILLUS RHAMNOSUS GG 1 CAPSULE. PO SCH ×2 (09:44→21:18)
[2018-06-18] MEDS: LOSARTAN POTASSIUM 50 MG TABLET. PO SCH (09:46)
[2018-06-18] MEDS: cefTRIAXone IV Push 1 GM VIAL. IVP SCH (09:47)
[2018-06-18] MEDS: DEXTROSE 50% 25 GM / 50ML DISP.SYRIN. IV PRN (09:47)
--- NOTE | 2018-06-18 10:55 | PDOC ---
PULMONARY PROGRESS NOTES Subjective PT LESS SOA TODAY Vitals Vital Signs Date Time Temp Pulse Resp B/P (MAP) Pulse Ox O2 Delivery O2 Flow Rate FiO2 06/18/18 09:46 77 154/56 06/18/18 07:55 99 Nasal Cannula 3.0 06/18/18 07:00 98.4 20 98.4 ROS: No Nausea, No Chest Pain, No Abdominal Pain, No Increase Cough General: Alert, No acute distress Lungs: Clear Cardiovascular: S1, S2 Abdomen: Soft, Non-tender Neuro Exam: Alert Extremities: Other (2+edema) Skin: Warm Labs Laboratory Tests Test 06/16/18 11:49 06/16/18 16:58 06/16/18 20:40 06/17/18 05:30 Glucose (Fingerstick) 214 mg/dL (70-99) 123 mg/dL (70-99) 155 mg/dL (70-99) White Blood Count 6.6 x10^3/uL (4.0-11.0) Red Blood Count 3.15 x10^6/uL (3.50-5.40) Hemoglobin 9.6 g/dL (12.0-15.5) Hematocrit 29.9 % (36.0-47.0) Mean Corpuscular Volume 95 fL (79-100) Mean Corpuscular Hemoglobin 31 pg (25-35) Mean Corpuscular Hemoglobin Concent 32 g/dL (31-37) Red Cell Distribution Width 15.0 % (11.5-14.5) Platelet Count 156 x10^3/uL (140-400) Neutrophils (%) (Auto) 69 % (31-73) Lymphocytes (%) (Auto) 18 % (24-48) Monocytes (%) (Auto) 10 % (0-9) Eosinophils (%) (Auto) 3 % (0-3) Basophils (%) (Auto) 0 % (0-3) Neutrophils # (Auto) 4.6 x10^3uL (1.8-7.7) Lymphocytes # (Auto) 1.2 x10^3/uL (1.0-4.8) Monocytes # (Auto) 0.7 x10^3/uL (0.0-1.1) Eosinophils # (Auto) 0.2 x10^3/uL (0.0-0.7) Basophils # (Auto) 0.0 x10^3/uL (0.0-0.2) Sodium Level 146 mmol/L (136-145) Potassium Level 3.7 mmol/L (3.5-5.1) Chloride Level 107 mmol/L (98-107) Carbon Dioxide Level 31 mmol/L (21-32) Anion Gap 8 (6-14) Blood Urea Nitrogen 21 mg/dL (7-20) Creatinine 1.3 mg/dL (0.6-1.0) Estimated GFR (Cockcroft-Gault) 48.4 BUN/Creatinine Ratio 16 (6-20) Glucose Level 80 mg/dL (70-99) Calcium Level 9.2 mg/dL (8.5-10.1) Total Bilirubin 0.4 mg/dL (0.2-1.0) Aspartate Amino Transf (AST/SGOT) 13 U/L (15-37) Alanine Aminotransferase (ALT/SGPT) 15 U/L (14-59) Alkaline Phosphatase 92 U/L (46-116) Total Protein 6.1 g/dL (6.4-8.2) Albumin 2.7 g/dL (3.4-5.0) Albumin/Globulin Ratio 0.8 (1.0-1.7) Test 06/17/18 08:06 06/17/18 08:39 06/17/18 11:30 06/17/18 16:23 Glucose (Fingerstick) 62 mg/dL (70-99) 86 mg/dL (70-99) 96 mg/dL (70-99) 119 mg/dL (70-99) Test 06/17/18 20:43 06/18/18 04:30 06/18/18 07:00 06/18/18 07:21 Glucose (Fingerstick) 212 mg/dL (70-99) 47 mg/dL (70-99) 52 mg/dL (70-99) White Blood Count 6.3 x10^3/uL (4.0-11.0) Red Blood Count 3.02 x10^6/uL (3.50-5.40) Hemoglobin 9.2 g/dL (12.0-15.5) Hematocrit 28.5 % (36.0-47.0) Mean Corpuscular Volume 95 fL (79-100) Mean Corpuscular Hemoglobin 31 pg (25-35) Mean Corpuscular Hemoglobin Concent 32 g/dL (31-37) Red Cell Distribution Width 14.8 % (11.5-14.5) Platelet Count 157 x10^3/uL (140-400) Neutrophils (%) (Auto) 68 % (31-73) Lymphocytes (%) (Auto) 18 % (24-48) Monocytes (%) (Auto) 11 % (0-9) Eosinophils (%) (Auto) 3 % (0-3) Basophils (%) (Auto) 1 % (0-3) Neutrophils # (Auto) 4.3 x10^3uL (1.8-7.7) Lymphocytes # (Auto) 1.1 x10^3/uL (1.0-4.8) Monocytes # (Auto) 0.7 x10^3/uL (0.0-1.1) Eosinophils # (Auto) 0.2 x10^3/uL (0.0-0.7) Basophils # (Auto) 0.0 x10^3/uL (0.0-0.2) Sodium Level 144 mmol/L (136-145) Potassium Level 3.6 mmol/L (3.5-5.1) Chloride Level 108 mmol/L (98-107) Carbon Dioxide Level 33 mmol/L (21-32) Anion Gap 3 (6-14) Blood Urea Nitrogen 21 mg/dL (7-20) Creatinine 1.2 mg/dL (0.6-1.0) Estimated GFR (Cockcroft-Gault) 53.1 Glucose Level 57 mg/dL (70-99) Calcium Level 9.6 mg/dL (8.5-10.1) Test 06/18/18 07:38 Glucose (Fingerstick) 114 mg/dL (70-99) Laboratory Tests Test 06/17/18 11:30 06/17/18 16:23 06/17/18 20:43 06/18/18 04:30 Glucose (Fingerstick) 96 mg/dL (70-99) 119 mg/dL (70-99) 212 mg/dL (70-99) White Blood Count 6.3 x10^3/uL (4.0-11.0) Red Blood Count 3.02 x10^6/uL (3.50-5.40) Hemoglobin 9.2 g/dL (12.0-15.5) Hematocrit 28.5 % (36.0-47.0) Mean Corpuscular Volume 95 fL (79-100) Mean Corpuscular Hemoglobin 31 pg (25-35) Mean Corpuscular Hemoglobin Concent 32 g/dL (31-37) Red Cell Distribution Width 14.8 % (11.5-14.5) Platelet Count 157 x10^3/uL (140-400) Neutrophils (%) (Auto) 68 % (31-73) Lymphocytes (%) (Auto) 18 % (24-48) Monocytes (%) (Auto) 11 % (0-9) Eosinophils (%) (Auto) 3 % (0-3) Basophils (%) (Auto) 1 % (0-3) Neutrophils # (Auto) 4.3 x10^3uL (1.8-7.7) Lymphocytes # (Auto) 1.1 x10^3/uL (1.0-4.8) Monocytes # (Auto) 0.7 x10^3/uL (0.0-1.1) Eosinophils # (Auto) 0.2 x10^3/uL (0.0-0.7) Basophils # (Auto) 0.0 x10^3/uL (0.0-0.2) Sodium Level 144 mmol/L (136-145) Potassium Level 3.6 mmol/L (3.5-5.1) Chloride Level 108 mmol/L (98-107) Carbon Dioxide Level 33 mmol/L (21-32) Anion Gap 3 (6-14) Blood Urea Nitrogen 21 mg/dL (7-20) Creatinine 1.2 mg/dL (0.6-1.0) Estimated GFR (Cockcroft-Gault) 53.1 Glucose Level 57 mg/dL (70-99) Calcium Level 9.6 mg/dL (8.5-10.1) Test 06/18/18 07:00 06/18/18 07:21 06/18/18 07:38 Glucose (Fingerstick) 47 mg/dL (70-99) 52 mg/dL (70-99) 114 mg/dL (70-99) Medications Active Scripts Medications Dose Route/Sig Max Daily Dose Days Date Category Oxybutynin Chloride 5 Mg Tablet 10 Mg PO HS 06/12/18 Reported Levemir Flextouch (Insulin Detemir) 100 Unit/1 Ml Insuln.pen 40 Unit SQ HS 06/12/18 Reported Pioglitazone Hcl 30 Mg Tablet 30 Mg PO DAILY 06/12/18 Reported Zoloft (Sertraline Hcl) 50 Mg Tablet 1 Tab PO DAILY 06/12/18 Reported Hydrocodone-Apap 5-325 (Hydrocodone Bit/Acetaminophen) 1 Each Tablet 1 Tab PO PRN Q4HRS PRN 28 08/09/16 Rx Carvedilol (Carvedilol) 12.5 Mg Tablet 12.5 Mg PO BIDWMEALS 07/21/16 Reported Atorvastatin Calcium 40 Mg Tablet 40 Mg PO HS 07/21/16 Reported Novolog Flexpen (Insulin Aspart) 100 Unit/1 Ml Insuln.pen 0 Units SQ TIDWMEALS 30 03/17/16 Rx Aspirin Ec (Aspirin) 81 Mg Tablet.dr 81 Mg PO 03/14/16 Reported Amlodipine Besylate 10 Mg Tablet 10 Mg PO DAILY 03/14/16 Reported Donepezil Hcl 10 Mg Tablet 10 Mg PO HS 03/14/16 Reported Losartan Potassium 100 Mg Tablet 100 Mg PO DAILY 07/24/13 Reported Impression . IMPRESSION: 1. Acute hypercapnic hypoxemic respiratory failure, LIKELY RIGHT HEART FAILURE 2. Abnormal x-ray compatible CHF/ ? pneumonia 3. Generalized weakness. 4. Renal insufficiency. 5. Elevated BNP. 6. Obstructive sleep apnea./ on home CPAP 7. Suspect secondary pulmonary hypertension. 8. Suspect right-sided heart failure. 9. NEGATIVE DVT IMPRESSION: No sonographic evidence of acute DVT of the bilateral lower extremity deep veins. Plan . RESP STATUS IS COMPENSATED CONTINUE ABX MILD DIURESIS TODAY CHECK PRO-CALCITONIN LEVEL TODAY WILL NEED REHAB /SHE IS VERY WEAK WILL CONTINUE THE SAME BARBARA JOHNSON MD Jun 18, 2018 10:55
[2018-06-18 11:00] VITALS: BP 195/68
[2018-06-18] MEDS ORDERED: FUROSEMIDE 20 MG/2 ML VIAL. IVP ONE (11:00)
[2018-06-18] MEDS: hydrALAZINE 20 MG/ML VIAL. IVP PRN (12:00)
--- NOTE | 2018-06-18 14:27 | DISCH ---
DISCHARGE DISCHARGE INFORMATION: DISCHARGE DATE: Jun 18, 2018 FINAL DIAGNOSIS Problems Medical Problems: (1) Congestive heart failure (CHF) Status: Acute CONDITION ON DISCHARGE: Stable CODE STATUS: Code Status: Full RETIREMENT: SNF STAY <30 DAYS: Yes POST DISCHARGE ORDERS: ACTIVITY ORDERS: Activity as tolerated WEIGHT BEARING STATUS: Full weight bearing BATHING ORDERS: Shower-keep dressing dry, No Tub Bath until see DIET AFTER DISCHARGE: ADA WOUND/INCISION CARE: Other, see below CHECKS AFTER DISCHARGE: CHECKS AFTER DISCHARGE: Check blood sugar, ac/hs TREATMENT/EQUIPMENT ORDERS: ADAPTIVE EQUIPMENT NEEDED: Bath Bench, Walker Physical Therapy For: Evalulation/Treatment DISCHARGE MEDICATIONS: Home Meds Active Scripts Hydrocodone Bit/Acetaminophen (HYDROCODONE-APAP 5-325 ) 1 Each Tablet, 1 TAB PO PRN Q4HRS PRN for MILD PAIN for 28 Days, CAP 0 Refills Prov:YAN DAVIS APRN 08/09/16 Insulin Aspart (NOVOLOG FLEXPEN) 100 Unit/1 Ml Insuln.pen, 0 UNITS SQ TIDWMEALS for 30 Days, LIQUID 5 Refills Prov:ДМИТРИЙ RILYE MD 03/17/16 Reported Medications Oxybutynin Chloride (OXYBUTYNIN CHLORIDE) 5 Mg Tablet, 10 MG PO HS, TAB 06/12/18 Insulin Detemir (Levemir Flextouch) 100 Unit/1 Ml Insuln.pen, 40 UNIT SQ HS, SYR 06/12/18 Pioglitazone Hcl (PIOGLITAZONE HCL) 30 Mg Tablet, 30 MG PO DAILY, TAB 06/12/18 Sertraline Hcl (ZOLOFT) 50 Mg Tablet, 1 TAB PO DAILY, #30 TAB 2 Refills 06/12/18 Carvedilol (CARVEDILOL ) 12.5 Mg Tablet, 12.5 MG PO BIDWMEALS, TAB 07/21/16 Atorvastatin Calcium (ATORVASTATIN CALCIUM) 40 Mg Tablet, 40 MG PO HS for FOR CHOLESTEROL, #30 TAB 0 Refills 07/21/16 Aspirin (ASPIRIN EC) 81 Mg Tablet.dr, 81 MG PO 03/14/16 Amlodipine Besylate (AMLODIPINE BESYLATE) 10 Mg Tablet, 10 MG PO DAILY, TAB 03/14/16 Donepezil Hcl (DONEPEZIL HCL) 10 Mg Tablet, 10 MG PO HS, TAB 03/14/16 Losartan Potassium (LOSARTAN POTASSIUM) 100 Mg Tablet, 100 MG PO DAILY 07/24/13 ZAY MONTEMAYOR MD Jun 18, 2018 14:27
--- NOTE | 2018-06-18 14:36 | PDOC3 ---
Discharge Summary Visit Information Date of Admission: Jun 12, 2018 Date of Discharge: Jun 18, 2018 Final Diagnosis Problems Medical Problems: (1) Congestive heart failure (CHF) Status: Acute Brief Hospital Course Allergies Allergies Coded Allergies Type Severity Reaction Last Updated Verified No Known Drug Allergies 08/04/16 No Vital Signs Vital Signs Date Time Temp Pulse Resp B/P (MAP) Pulse Ox O2 Delivery O2 Flow Rate FiO2 06/18/18 12:00 72 195/68 06/18/18 11:00 98.0 22 99 98.0 06/18/18 08:00 Nasal Cannula 3.0 Lab Results Laboratory Tests Test 06/16/18 16:58 06/16/18 20:40 06/17/18 05:30 06/17/18 08:06 Glucose (Fingerstick) 123 mg/dL (70-99) 155 mg/dL (70-99) 62 mg/dL (70-99) White Blood Count 6.6 x10^3/uL (4.0-11.0) Red Blood Count 3.15 x10^6/uL (3.50-5.40) Hemoglobin 9.6 g/dL (12.0-15.5) Hematocrit 29.9 % (36.0-47.0) Mean Corpuscular Volume 95 fL (79-100) Mean Corpuscular Hemoglobin 31 pg (25-35) Mean Corpuscular Hemoglobin Concent 32 g/dL (31-37) Red Cell Distribution Width 15.0 % (11.5-14.5) Platelet Count 156 x10^3/uL (140-400) Neutrophils (%) (Auto) 69 % (31-73) Lymphocytes (%) (Auto) 18 % (24-48) Monocytes (%) (Auto) 10 % (0-9) Eosinophils (%) (Auto) 3 % (0-3) Basophils (%) (Auto) 0 % (0-3) Neutrophils # (Auto) 4.6 x10^3uL (1.8-7.7) Lymphocytes # (Auto) 1.2 x10^3/uL (1.0-4.8) Monocytes # (Auto) 0.7 x10^3/uL (0.0-1.1) Eosinophils # (Auto) 0.2 x10^3/uL (0.0-0.7) Basophils # (Auto) 0.0 x10^3/uL (0.0-0.2) Sodium Level 146 mmol/L (136-145) Potassium Level 3.7 mmol/L (3.5-5.1) Chloride Level 107 mmol/L (98-107) Carbon Dioxide Level 31 mmol/L (21-32) Anion Gap 8 (6-14) Blood Urea Nitrogen 21 mg/dL (7-20) Creatinine 1.3 mg/dL (0.6-1.0) Estimated GFR (Cockcroft-Gault) 48.4 BUN/Creatinine Ratio 16 (6-20) Glucose Level 80 mg/dL (70-99) Calcium Level 9.2 mg/dL (8.5-10.1) Total Bilirubin 0.4 mg/dL (0.2-1.0) Aspartate Amino Transf (AST/SGOT) 13 U/L (15-37) Alanine Aminotransferase (ALT/SGPT) 15 U/L (14-59) Alkaline Phosphatase 92 U/L (46-116) Total Protein 6.1 g/dL (6.4-8.2) Albumin 2.7 g/dL (3.4-5.0) Albumin/Globulin Ratio 0.8 (1.0-1.7) Test 06/17/18 08:39 06/17/18 11:30 06/17/18 16:23 06/17/18 20:43 Glucose (Fingerstick) 86 mg/dL (70-99) 96 mg/dL (70-99) 119 mg/dL (70-99) 212 mg/dL (70-99) Test 06/18/18 04:30 06/18/18 07:00 06/18/18 07:21 06/18/18 07:38 White Blood Count 6.3 x10^3/uL (4.0-11.0) Red Blood Count 3.02 x10^6/uL (3.50-5.40) Hemoglobin 9.2 g/dL (12.0-15.5) Hematocrit 28.5 % (36.0-47.0) Mean Corpuscular Volume 95 fL (79-100) Mean Corpuscular Hemoglobin 31 pg (25-35) Mean Corpuscular Hemoglobin Concent 32 g/dL (31-37) Red Cell Distribution Width 14.8 % (11.5-14.5) Platelet Count 157 x10^3/uL (140-400) Neutrophils (%) (Auto) 68 % (31-73) Lymphocytes (%) (Auto) 18 % (24-48) Monocytes (%) (Auto) 11 % (0-9) Eosinophils (%) (Auto) 3 % (0-3) Basophils (%) (Auto) 1 % (0-3) Neutrophils # (Auto) 4.3 x10^3uL (1.8-7.7) Lymphocytes # (Auto) 1.1 x10^3/uL (1.0-4.8) Monocytes # (Auto) 0.7 x10^3/uL (0.0-1.1) Eosinophils # (Auto) 0.2 x10^3/uL (0.0-0.7) Basophils # (Auto) 0.0 x10^3/uL (0.0-0.2) Sodium Level 144 mmol/L (136-145) Potassium Level 3.6 mmol/L (3.5-5.1) Chloride Level 108 mmol/L (98-107) Carbon Dioxide Level 33 mmol/L (21-32) Anion Gap 3 (6-14) Blood Urea Nitrogen 21 mg/dL (7-20) Creatinine 1.2 mg/dL (0.6-1.0) Estimated GFR (Cockcroft-Gault) 53.1 Glucose Level 57 mg/dL (70-99) Calcium Level 9.6 mg/dL (8.5-10.1) Procalcitonin < 0.10 ng/mL (0.00-0.10) Glucose (Fingerstick) 47 mg/dL (70-99) 52 mg/dL (70-99) 114 mg/dL (70-99) Test 06/18/18 11:42 Glucose (Fingerstick) 98 mg/dL (70-99) Laboratory Tests Test 06/17/18 16:23 06/17/18 20:43 06/18/18 04:30 06/18/18 07:00 Glucose (Fingerstick) 119 mg/dL (70-99) 212 mg/dL (70-99) 47 mg/dL (70-99) White Blood Count 6.3 x10^3/uL (4.0-11.0) Red Blood Count 3.02 x10^6/uL (3.50-5.40) Hemoglobin 9.2 g/dL (12.0-15.5) Hematocrit 28.5 % (36.0-47.0) Mean Corpuscular Volume 95 fL (79-100) Mean Corpuscular Hemoglobin 31 pg (25-35) Mean Corpuscular Hemoglobin Concent 32 g/dL (31-37) Red Cell Distribution Width 14.8 % (11.5-14.5) Platelet Count 157 x10^3/uL (140-400) Neutrophils (%) (Auto) 68 % (31-73) Lymphocytes (%) (Auto) 18 % (24-48) Monocytes (%) (Auto) 11 % (0-9) Eosinophils (%) (Auto) 3 % (0-3) Basophils (%) (Auto) 1 % (0-3) Neutrophils # (Auto) 4.3 x10^3uL (1.8-7.7) Lymphocytes # (Auto) 1.1 x10^3/uL (1.0-4.8) Monocytes # (Auto) 0.7 x10^3/uL (0.0-1.1) Eosinophils # (Auto) 0.2 x10^3/uL (0.0-0.7) Basophils # (Auto) 0.0 x10^3/uL (0.0-0.2) Sodium Level 144 mmol/L (136-145) Potassium Level 3.6 mmol/L (3.5-5.1) Chloride Level 108 mmol/L (98-107) Carbon Dioxide Level 33 mmol/L (21-32) Anion Gap 3 (6-14) Blood Urea Nitrogen 21 mg/dL (7-20) Creatinine 1.2 mg/dL (0.6-1.0) Estimated GFR (Cockcroft-Gault) 53.1 Glucose Level 57 mg/dL (70-99) Calcium Level 9.6 mg/dL (8.5-10.1) Procalcitonin < 0.10 ng/mL (0.00-0.10) Test 06/18/18 07:21 06/18/18 07:38 06/18/18 11:42 Glucose (Fingerstick) 52 mg/dL (70-99) 114 mg/dL (70-99) 98 mg/dL (70-99) Brief Hospital Course Ms. Rdz is a 73 old female who ecently went on a cruise. According to her sister, initially, she was walking, but when she got to the cruise, she was weak to the point where she more or less used awheelchair. She flew back. She came in because she slid on the floor and fell. No acute onset of shortness of breath associated with syncope or near syncopal episode. She does have chronic lower extremity edema. There is no prior history of DVT or pulmonary embolism. Chest x-ray was likewise obtained, which revealed a patchy left basal opacity. Denies fever, chills nausea or vomiting on admission. she was admitted for Acute hypoxic respiratory failure secondary to PNA and CHF. echo obtained and showed Ef 55%. she was diuresed mildly. cards was consulted. BP also elevated but improved with meds . patient had Brief NSVT: called in by staff. Likely from low K and Mg. she remained on 2-3 liters and home cpap. patient was treated for PNA with rocephin and azithro for 5 days. she was diuresed with lasix and improved. US checked and negative for DVT. patient has CKD stage 3 which remained stable. patient very weak and will need rehab, insurance improved today. patient creatine 1.2-1.4. has normal EF. recommend spot dose lasix as an outpatient. patient stable for discharge to SNF today. Discharge Information Condition at Discharge: Stable Follow Up: Weeks Disposition/Orders: D/C to Another Facility Scheduled Amlodipine Besylate (Amlodipine Besylate) 10 Mg Tablet, 10 MG PO DAILY, ( Reported) Entered as Reported by: NISHI FINLEY on 03/14/16 1430 Last Action: Continued on 06/12/18 1220 by JUN GONZALEZ RN Atorvastatin Calcium (Atorvastatin Calcium) 40 Mg Tablet, 40 MG PO HS for FOR CHOLESTEROL, #30 Ref 0 (Reported) Entered as Reported by: ERICH DELGADO on 07/21/16 0903 Last Action: Continued on 06/12/18 1220 by JUN GONZALEZ RN Carvedilol (Carvedilol ) 12.5 Mg Tablet, 12.5 MG PO BIDWMEALS, (Reported) Entered as Reported by: ERICH DELGADO on 07/21/16 0903 Last Action: Continued on 06/12/181219 by JUN GONZALEZ RN Donepezil Hcl (Donepezil Hcl) 10 Mg Tablet, 10 MG PO HS, (Reported) Entered as Reported by: NISHI FINLEY on 03/14/16 1430 Last Action: Converted on 06/12/181219 by JUN GONZALEZ RN Insulin Aspart (Novolog Flexpen) 100 Unit/1 Ml Insuln.pen, 0 UNITS SQ TIDWMEALS for 30 Days, Ref 5 Prescribed by: ДМИТРИЙ RILEY on 03/17/16 0857 Last Action: Converted on 06/12/181219 by JUN GONZALEZ RN Insulin Detemir (Levemir Flextouch) 100 Unit/1 Ml Insuln.pen, 40 UNIT SQ HS, ( Reported) Entered as Reported by: MIGUEL NATHAN on 06/12/18924 Last Action: Converted on 06/12/181219 by JUN GONZALEZ RN Losartan Potassium (Losartan Potassium) 100 Mg Tablet, 100 MG PO DAILY, ( Reported) Entered as Reported by: SOREN BRUCE on 07/24/13 0840 Last Action: Converted on 06/12/181219 by JUN GONZALEZ RN Oxybutynin Chloride (Oxybutynin Chloride) 5 Mg Tablet, 10 MG PO HS, (Reported) Entered as Reported by: MIGUEL NATHAN on 06/12/18924 Last Action: Continued on 06/12/181219 by JUN GONZALEZ RN Pioglitazone Hcl (Pioglitazone Hcl) 30 Mg Tablet, 30 MG PO DAILY, (Reported) Entered as Reported by: MIGUEL NATHAN on 06/12/18924 Last Action: Converted on 06/12/181219 by JUN GONZALEZ RN Sertraline Hcl (Zoloft) 50 Mg Tablet, 1 TAB PO DAILY, #30 Ref 2 (Reported) Entered as Reported by: MIGUEL NATHAN on 06/12/18924 Last Action: Continued on 06/12/181219 by JUN GONZALEZ RN Scheduled PRN Hydrocodone Bit/Acetaminophen (Hydrocodone-Apap 5-325 ) 1 Each Tablet, 1 TAB PO PRN Q4HRS PRN for MILD PAIN for 28 Days, Ref 0 Prescribed by: DEISI CLEVELAND on 08/10/16 1525 Miscellaneous Medications Aspirin (Aspirin Ec) 81 Mg Tablet., 81 MG PO, (Reported) Entered as Reported by: NISHI FINLEY on 03/14/16 1430 Last Action: Continued on 06/12/18 1220 by YAO DODGE MANEESH MD Jun 18, 2018 14:36
[2018-06-18] MEDS ORDERED: HYDR-2761 PO (14:45)
--- NOTE | 2018-06-18 14:52 | NUR ---
[facility] following. Insurance has approved SNU. Elena at [facility] reported they did not get Bipap setting even if they had confirmed receiving it in prior conversation with [facility] an hour ago. [facility] unable to take pt until tomorrow. Orders already faxed to facility and Physician notified pt is unable to dc today. SW notified pt and pt's sister regarding dc plan. [facility] will continue to follow. Addendum: 06/18/18 at 1459 by REGGIE PORTER [facility] refaxed Bipap setting to [facility].
[2018-06-18 15:00] VITALS: BP 146/50
--- NOTE | 2018-06-18 15:03 | PDOC ---
PROGRESS NOTES Chief Complaint Chief Complaint IMPRESSION SOA, CHF exacerbation acute hypercapnic, hypoxemic respiratory failure. Acute hypoxic respiratory failure secondary to PNEUMONIA / CHF acute diastolic CHF; LVEF 55% per echo Malignant hypertension DM2/HLP/morbid OBESITY CKD3 ALEXYS/pulmonary HTN generalized weakness plan dc pending SNF bed. continue IV abx for now. likely dc in AM dose of lasix today History of Present Illness History of Present Illness sitting in chair. sob improved. no complaints Vitals Vitals Vital Signs Date Time Temp Pulse Resp B/P (MAP) Pulse Ox O2 Delivery O2 Flow Rate FiO2 06/18/18 14:49 Nasal Cannula 2.0 06/18/18 12:00 72 195/68 06/18/18 11:00 98.0 22 99 98.0 Physical Exam General: Alert, Oriented X3, Cooperative, mild distress Heart: Regular rate, Normal S1, Normal S2 Lungs: Clear Abdomen: Normal bowel sounds, Soft, No tenderness Extremities: Normal pulses, Other (2+ bilateral LE edema ) Skin: No breakdown, No significant lesion Labs LABS Laboratory Tests Test 06/17/18 16:23 06/17/18 20:43 06/18/18 04:30 06/18/18 07:00 Glucose (Fingerstick) 119 mg/dL (70-99) 212 mg/dL (70-99) 47 mg/dL (70-99) White Blood Count 6.3 x10^3/uL (4.0-11.0) Red Blood Count 3.02 x10^6/uL (3.50-5.40) Hemoglobin 9.2 g/dL (12.0-15.5) Hematocrit 28.5 % (36.0-47.0) Mean Corpuscular Volume 95 fL (79-100) Mean Corpuscular Hemoglobin 31 pg (25-35) Mean Corpuscular Hemoglobin Concent 32 g/dL (31-37) Red Cell Distribution Width 14.8 % (11.5-14.5) Platelet Count 157 x10^3/uL (140-400) Neutrophils (%) (Auto) 68 % (31-73) Lymphocytes (%) (Auto) 18 % (24-48) Monocytes (%) (Auto) 11 % (0-9) Eosinophils (%) (Auto) 3 % (0-3) Basophils (%) (Auto) 1 % (0-3) Neutrophils # (Auto) 4.3 x10^3uL (1.8-7.7) Lymphocytes # (Auto) 1.1 x10^3/uL (1.0-4.8) Monocytes # (Auto) 0.7 x10^3/uL (0.0-1.1) Eosinophils # (Auto) 0.2 x10^3/uL (0.0-0.7) Basophils # (Auto) 0.0 x10^3/uL (0.0-0.2) Sodium Level 144 mmol/L (136-145) Potassium Level 3.6 mmol/L (3.5-5.1) Chloride Level 108 mmol/L (98-107) Carbon Dioxide Level 33 mmol/L (21-32) Anion Gap 3 (6-14) Blood Urea Nitrogen 21 mg/dL (7-20) Creatinine 1.2 mg/dL (0.6-1.0) Estimated GFR (Cockcroft-Gault) 53.1 Glucose Level 57 mg/dL (70-99) Calcium Level 9.6 mg/dL (8.5-10.1) Procalcitonin < 0.10 ng/mL (0.00-0.10) Test 06/18/18 07:21 06/18/18 07:38 06/18/18 11:42 Glucose (Fingerstick) 52 mg/dL (70-99) 114 mg/dL (70-99) 98 mg/dL (70-99) Assessment and Plan Assessmemt and Plan Problems Medical Problems: (1) Congestive heart failure (CHF) Status: Acute Comment Review of Relevant I have reviewed the following items joel (where applicable) has been applied. Labs Laboratory Tests Test 06/16/18 16:58 06/16/18 20:40 06/17/18 05:30 06/17/18 08:06 Glucose (Fingerstick) 123 mg/dL (70-99) 155 mg/dL (70-99) 62 mg/dL (70-99) White Blood Count 6.6 x10^3/uL (4.0-11.0) Red Blood Count 3.15 x10^6/uL (3.50-5.40) Hemoglobin 9.6 g/dL (12.0-15.5) Hematocrit 29.9 % (36.0-47.0) Mean Corpuscular Volume 95 fL (79-100) Mean Corpuscular Hemoglobin 31 pg (25-35) Mean Corpuscular Hemoglobin Concent 32 g/dL (31-37) Red Cell Distribution Width 15.0 % (11.5-14.5) Platelet Count 156 x10^3/uL (140-400) Neutrophils (%) (Auto) 69 % (31-73) Lymphocytes (%) (Auto) 18 % (24-48) Monocytes (%) (Auto) 10 % (0-9) Eosinophils (%) (Auto) 3 % (0-3) Basophils (%) (Auto) 0 % (0-3) Neutrophils # (Auto) 4.6 x10^3uL (1.8-7.7) Lymphocytes # (Auto) 1.2 x10^3/uL (1.0-4.8) Monocytes # (Auto) 0.7 x10^3/uL (0.0-1.1) Eosinophils # (Auto) 0.2 x10^3/uL (0.0-0.7) Basophils # (Auto) 0.0 x10^3/uL (0.0-0.2) Sodium Level 146 mmol/L (136-145) Potassium Level 3.7 mmol/L (3.5-5.1) Chloride Level 107 mmol/L (98-107) Carbon Dioxide Level 31 mmol/L (21-32) Anion Gap 8 (6-14) Blood Urea Nitrogen 21 mg/dL (7-20) Creatinine 1.3 mg/dL (0.6-1.0) Estimated GFR (Cockcroft-Gault) 48.4 BUN/Creatinine Ratio 16 (6-20) Glucose Level 80 mg/dL (70-99) Calcium Level 9.2 mg/dL (8.5-10.1) Total Bilirubin 0.4 mg/dL (0.2-1.0) Aspartate Amino Transf (AST/SGOT) 13 U/L (15-37) Alanine Aminotransferase (ALT/SGPT) 15 U/L (14-59) Alkaline Phosphatase 92 U/L (46-116) Total Protein 6.1 g/dL (6.4-8.2) Albumin 2.7 g/dL (3.4-5.0) Albumin/Globulin Ratio 0.8 (1.0-1.7) Test 06/17/18 08:39 06/17/18 11:30 06/17/18 16:23 06/17/18 20:43 Glucose (Fingerstick) 86 mg/dL (70-99) 96 mg/dL (70-99) 119 mg/dL (70-99) 212 mg/dL (70-99) Test 06/18/18 04:30 06/18/18 07:00 06/18/18 07:21 06/18/18 07:38 White Blood Count 6.3 x10^3/uL (4.0-11.0) Red Blood Count 3.02 x10^6/uL (3.50-5.40) Hemoglobin 9.2 g/dL (12.0-15.5) Hematocrit 28.5 % (36.0-47.0) Mean Corpuscular Volume 95 fL (79-100) Mean Corpuscular Hemoglobin 31 pg (25-35) Mean Corpuscular Hemoglobin Concent 32 g/dL (31-37) Red Cell Distribution Width 14.8 % (11.5-14.5) Platelet Count 157 x10^3/uL (140-400) Neutrophils (%) (Auto) 68 % (31-73) Lymphocytes (%) (Auto) 18 % (24-48) Monocytes (%) (Auto) 11 % (0-9) Eosinophils (%) (Auto) 3 % (0-3) Basophils (%) (Auto) 1 % (0-3) Neutrophils # (Auto) 4.3 x10^3uL (1.8-7.7) Lymphocytes # (Auto) 1.1 x10^3/uL (1.0-4.8) Monocytes # (Auto) 0.7 x10^3/uL (0.0-1.1) Eosinophils # (Auto) 0.2 x10^3/uL (0.0-0.7) Basophils # (Auto) 0.0 x10^3/uL (0.0-0.2) Sodium Level 144 mmol/L (136-145) Potassium Level 3.6 mmol/L (3.5-5.1) Chloride Level 108 mmol/L (98-107) Carbon Dioxide Level 33 mmol/L (21-32) Anion Gap 3 (6-14) Blood Urea Nitrogen 21 mg/dL (7-20) Creatinine 1.2 mg/dL (0.6-1.0) Estimated GFR (Cockcroft-Gault) 53.1 Glucose Level 57 mg/dL (70-99) Calcium Level 9.6 mg/dL (8.5-10.1) Procalcitonin < 0.10 ng/mL (0.00-0.10) Glucose (Fingerstick) 47 mg/dL (70-99) 52 mg/dL (70-99) 114 mg/dL (70-99) Test 06/18/18 11:42 Glucose (Fingerstick) 98 mg/dL (70-99) Laboratory Tests Test 06/17/18 16:23 06/17/18 20:43 06/18/18 04:30 06/18/18 07:00 Glucose (Fingerstick) 119 mg/dL (70-99) 212 mg/dL (70-99) 47 mg/dL (70-99) White Blood Count 6.3 x10^3/uL (4.0-11.0) Red Blood Count 3.02 x10^6/uL (3.50-5.40) Hemoglobin 9.2 g/dL (12.0-15.5) Hematocrit 28.5 % (36.0-47.0) Mean Corpuscular Volume 95 fL (79-100) Mean Corpuscular Hemoglobin 31 pg (25-35) Mean Corpuscular Hemoglobin Concent 32 g/dL (31-37) Red Cell Distribution Width 14.8 % (11.5-14.5) Platelet Count 157 x10^3/uL (140-400) Neutrophils (%) (Auto) 68 % (31-73) Lymphocytes (%) (Auto) 18 % (24-48) Monocytes (%) (Auto) 11 % (0-9) Eosinophils (%) (Auto) 3 % (0-3) Basophils (%) (Auto) 1 % (0-3) Neutrophils # (Auto) 4.3 x10^3uL (1.8-7.7) Lymphocytes # (Auto) 1.1 x10^3/uL (1.0-4.8) Monocytes # (Auto) 0.7 x10^3/uL (0.0-1.1) Eosinophils # (Auto) 0.2 x10^3/uL (0.0-0.7) Basophils # (Auto) 0.0 x10^3/uL (0.0-0.2) Sodium Level 144 mmol/L (136-145) Potassium Level 3.6 mmol/L (3.5-5.1) Chloride Level 108 mmol/L (98-107) Carbon Dioxide Level 33 mmol/L (21-32) Anion Gap 3 (6-14) Blood Urea Nitrogen 21 mg/dL (7-20) Creatinine 1.2 mg/dL (0.6-1.0) Estimated GFR (Cockcroft-Gault) 53.1 Glucose Level 57 mg/dL (70-99) Calcium Level 9.6 mg/dL (8.5-10.1) Procalcitonin < 0.10 ng/mL (0.00-0.10) Test 06/18/18 07:21 06/18/18 07:38 06/18/18 11:42 Glucose (Fingerstick) 52 mg/dL (70-99) 114 mg/dL (70-99) 98 mg/dL (70-99) Microbiology 06/12/18 Blood Culture - Final, Complete NO GROWTH AFTER 5 DAYS Medications Current Medications Albuterol Sulfate (Ventolin Neb Soln) 2.5 mg STK-MED ONCE .ROUTE ; Start at 07:59; Stop 06/12/18 at 08:01; Status DC Sodium Chloride 1,000 ml @ 1,000 mls/hr 1X ONCE IV Last administered on at 09:00; Start 06/12/18 at 08:15; Stop 06/12/18 at 09:14; Status DC Albuterol Sulfate (Ventolin Neb Soln) 10 mg 1X ONCE CONT NEB Last administered on 06/12/18at 08:28; Start 06/12/18 at 08:30; Stop 06/12/18 at 08:31 ; Status DC Clonidine HCl (Catapres) 0.2 mg 1X ONCE PO Last administered on 06/12/18at 08: 57; Start 06/12/18 at 09:00; Stop 06/12/18 at 09:01; Status DC Furosemide (Lasix) 40 mg 1X STAT IVP Last administered on 06/12/18 09:55; Start 06/12/18 at 09:42; Stop 06/12/18 at 09:43; Status DC Ceftriaxone Sodium (Rocephin) 1 gm 1X ONCE IVP Last administered on 06/12/18at 09:58; Start 06/12/18 at 10:00; Stop 06/12/18 at 10:01; Status DC Azithromycin 250 ml @ 250 mls/hr 1X ONCE IV Last administered on 06/12/18at 10 :34; Start 06/12/18 at 10:00; Stop 06/12/18 at 10:59; Status DC Albuterol/ Ipratropium (Duoneb) 3 ml RTQID NEB Last administered on 06/13/18at 15:09; Start 06/12/18 at 12:00; Stop 06/13/18 at 11:59; Status DC Labetalol HCl (Normodyne Iv Push) 20 mg 1X ONCE IVP ; Start 06/12/18 at 10:15; Stop 06/12/18 at 10:34; Status DC Amlodipine Besylate (Norvasc) 10 mg DAILY PO Last administered on 06/18/18 09: 43; Start 06/12/18 at 13:00 Aspirin (Ecotrin) 81 mg DAILY PO Last administered on 06/18/18 09:44; Start at 13:00 Atorvastatin Calcium (Lipitor) 40 mg HS PO Last administered on 06/17/18 20:48 ; Start 06/12/18 at 21:00 Carvedilol (Coreg) 12.5 mg BIDWMEALS PO Last administered on 06/12/18 14:08; Start 06/12/18 at 13:00; Stop 06/12/18 at 15:57; Status DC Oxybutynin Chloride (Ditropan) 5 mg BID PO Last administered on 06/18/18 09:44 ; Start 06/12/18 at 13:00 Sertraline HCl (Zoloft) 50 mg DAILY PO Last administered on 06/18/18 09:43; Start 06/12/18 at 13:00 Donepezil HCl (Aricept) 10 mg QHS PO Last administered on 06/17/18 20:48; Start 06/12/18 at 21:00 Non-Formulary Medication (Insulin Aspart (Novolog Flexpen)) TIDWMEALS SQ ; Start 06/12/18 at 17:00; Status UNV Insulin Glargine (Lantus) 40 units QHS SQ Last administered on 06/17/18 20:53; Start 06/12/18 at 21:00 Losartan Potassium (Cozaar) 100 mg DAILY PO Last administered on 06/18/18 09:46 ; Start 06/12/18 at 13:00 Pioglitazone HCl (Actos) 30 mg DAILY PO Last administered on 06/18/18 09:42; Start 06/12/18 at 13:00 Insulin Human Lispro (HumaLOG) 0-7 UNITS TIDWMEALS SQ Last administered on 12:13; Start 06/12/18 at 13:00 Dextrose (Dextrose 50%-Water Syringe) 12.5 gm PRN Q15MIN PRN IV SEE COMMENTS Last administered on 06/18/18 09:47; Start 06/12/18 at 12:45 Azithromycin 500 mg/Sodium Chloride 250 ml @ 250 mls/hr Q24H IV Last administered on 06/16/18 08:50; Start 06/13/18 at 09:00; Stop 06/17/18 at 04:22; Status DC Ceftriaxone Sodium (Rocephin) 1 gm Q24H IVP Last administered on 06/18/18 09:47 ; Start 06/13/18 at 09:00 Lactobacillus Rhamnosus (Culturelle) 1 cap BID PO Last administered on 09:44; Start 06/12/18 at 21:00 Hydralazine HCl (Apresoline Inj) 10 mg PRN Q4HRS PRN IVP ELEVATED BP, SEE COMMENTS Last administered on 06/18/18 12:00; Start 06/12/18 at 16:00 Acetaminophen (Tylenol) 650 mg PRN Q6HRS PRN PO MILD PAIN Last administered on 06/12/18 17:20; Start 06/12/18 at 16:45 Furosemide (Lasix) 20 mg 1X ONCE IVP Last administered on 06/13/18 15:23; Start 06/13/18 at 15:15; Stop 06/13/18 at 15:16; Status DC Hydralazine HCl (Apresoline) 50 mg BID PO Last administered on 06/18/18 09:43; Start 06/13/18 at 21:00 Albuterol/ Ipratropium (Duoneb) 3 ml RTQID NEB Last administered on 06/18/18 14 :47; Start 06/13/18 at 17:00 Potassium Chloride (Klor-Con) 40 meq 1X ONCE PO Last administered on 17:26; Start 06/13/18 at 17:30; Stop 06/13/18 at 17:31; Status DC Furosemide (Lasix) 20 mg 1X ONCE IVP Last administered on 06/14/18 14:53; Start 06/14/18 at 14:15; Stop 06/14/18 at 14:21; Status DC Potassium Chloride (Klor-Con) 40 meq Q4H PO Last administered on 06/14/18 17:41 ; Start 06/14/18 at 14:15; Stop 06/14/18 at 18:16; Status DC Magnesium Sulfate 50 ml @ 25 mls/hr 1X ONCE IV Last administered on 06/14/18 15:59; Start 06/14/18 at 15:30; Stop 06/14/18 at 17:29; Status DC Throat Lozenges (Cepacol Sore Throat Lozenge) 1 nohelia PRN Q2HRS PRN PO SORE THROAT Last administered on 06/15/18 17:05; Start 06/15/18 at 16:45 Benzonatate (Tessalon Perle) 100 mg [id number] PO Last administered on 06/18/18 14: 28; Start 06/15/18 at 17:00 Azithromycin (Zithromax) 500 mg DAILY PO Last administered on 06/18/18 09:43; Start 06/17/18 at 09:00 Furosemide (Lasix) 20 mg 1X ONCE IVP Last administered on 06/18/18 11:59; Start 06/18/18 at 11:00; Stop 06/18/18 at 11:01; Status DC Active Scripts Active Hydrocodone-Apap 5-325 (Hydrocodone Bit/Acetaminophen) 1 Each Tablet 1 Tab PO PRN Q4HRS PRN 7 Days Novolog Flexpen (Insulin Aspart) 100 Unit/1 Ml Insuln.pen 0 Units SQ TIDWMEALS 30 Days Reported Oxybutynin Chloride 5 Mg Tablet 10 Mg PO HS Levemir Flextouch (Insulin Detemir) 100 Unit/1 Ml Insuln.pen 40 Unit SQ HS Pioglitazone Hcl 30 Mg Tablet 30 Mg PO DAILY Zoloft (Sertraline Hcl) 50 Mg Tablet 1 Tab PO DAILY Carvedilol (Carvedilol) 12.5 Mg Tablet 12.5 Mg PO BIDWMEALS Atorvastatin Calcium 40 Mg Tablet 40 Mg PO HS Aspirin Ec (Aspirin) 81 Mg Tablet.dr 81 Mg PO Amlodipine Besylate 10 Mg Tablet 10 Mg PO DAILY Donepezil Hcl 10 Mg Tablet 10 Mg PO HS Losartan Potassium 100 Mg Tablet 100 Mg PO DAILY Vitals/I & O Vital Sign - Last 24 Hours 06/17/18 06/17/18 06/17/18 06/17/18 15:00 16:03 19:00 19:15 Temp 98.6 98.4 98.6 98.4 Pulse 71 85 Resp 18 18 B/P (MAP) 164/66 (98) 147/62 (90) Pulse Ox 96 98 99 O2 Delivery Nasal Cannula Nasal Cannula Nasal Cannula O2 Flow Rate 2.5 1.5 2.0 06/17/18 06/17/18 06/18/18 06/18/18 20:49 23:00 03:00 07:00 Temp 98.1 98.0 98.4 98.1 98.0 98.4 Pulse 85 83 71 77 Resp 20 18 20 B/P (MAP) 147/62 163/72 (102) 157/68 (97) 154/56 (88) Pulse Ox 94 96 97 06/18/18 06/18/18 06/18/18 06/18/18 07:55 08:00 09:43 09:43 Pulse 77 77 B/P (MAP) 154/56 154/56 Pulse Ox 99 O2 Delivery Nasal Cannula Nasal Cannula O2 Flow Rate 3.0 3.0 06/18/18 06/18/18 06/18/18 06/18/18 09:46 11:00 12:00 14:49 Temp 98.0 98.0 Pulse 77 72 72 Resp 22 B/P (MAP) 154/56 195/68 (110) 195/68 Pulse Ox 99 O2 Delivery Nasal Cannula O2 Flow Rate 2.0 Intake and Output 06/17/18 06/17/18 06/18/18 15:01 23:01 07:01 Intake Total 500 ml 660 ml 100 ml Balance 500 ml 660 ml 100 ml ZAY MONTEMAYOR MD Jun 18, 2018 15:03
[2018-06-18] MEDS ORDERED: FUROSEMIDE 40 MG/4 ML VIAL. IVP ONE (15:30)
[2018-06-18 19:00] VITALS: BP 173/59
[2018-06-18] MEDS: INSULIN GLARGINE 300 UNITS/3 ML INSULN.PEN. SQ SCH (21:00)
[2018-06-18] MEDS: ATORVASTATIN CALCIUM 40 MG TABLET. PO SCH (21:18)
[2018-06-18] MEDS: ACETAMINOPHEN 325 MG TABLET. PO PRN (21:19)
[2018-06-18] MEDS: DONEPEZIL HCL 10 MG TABLET. PO SCH (21:19)
[2018-06-18 22:53] VITALS: BP 162/62
[2018-06-19 02:58] VITALS: BP 155/60
[2018-06-19 06:49] LABS: BASO % 1 % (0-3); EOS # 0.2 x10^3/uL (0.0-0.7); EOS % 3 % (0-3); HEMATOCRIT 29.4 % (36.0-47.0); HEMOGLOBIN 9.4 g/dL (12.0-15.5); LYMPH # 1.2 x10^3/uL (1.0-4.8); LYMPH % 19 % (24-48); MEAN CORPUSCULAR HEMOGLOBIN 30 pg (25-35); MEAN CORPUSCULAR HGB CONC 32 g/dL (31-37); MEAN CORPUSCULAR VOLUME 94 fL (79-100); MONO # 0.8 x10^3/uL (0.0-1.1); MONO % 12 % (0-9); NEUT # 4.2 x10^3uL (1.8-7.7); NEUT % 66 % (31-73); PLATELET COUNT 167 x10^3/uL (140-400); RED BLOOD COUNT 3.11 x10^6/uL (3.50-5.40); WHITE BLOOD COUNT 6.3 x10^3/uL (4.0-11.0)
[2018-06-19 07:00] VITALS: BP 194/72
[2018-06-19 07:00] LABS: CALCIUM 9.6 mg/dL (8.5-10.1); CREATININE 1.5 mg/dL (0.6-1.0); GFR 41.1; POTASSIUM 3.3 mmol/L (3.5-5.1)
[2018-06-19] MEDS: IPRATRPIUM/ALBUTEROL 0.5/2.5MG 3 ML NEBU. NEB SCH ×2 (07:10→10:53)
[2018-06-19] MEDS: INSULIN LISPRO 300 UNITS/3 ML INSULN.PEN. SQ SCH ×2 (08:00→12:00)
[2018-06-19] MEDS: cefTRIAXone IV Push 1 GM VIAL. IVP SCH (08:42)
[2018-06-19] MEDS: LACTOBACILLUS RHAMNOSUS GG 1 CAPSULE. PO SCH (08:43)
[2018-06-19] MEDS: SERTRALINE 50 MG TABLET. PO SCH (08:43)
[2018-06-19] MEDS: amLODIPine BESYLATE 10 MG TABLET PO SCH (08:43)
[2018-06-19] MEDS: LOSARTAN POTASSIUM 50 MG TABLET. PO SCH (08:43)
[2018-06-19] MEDS: BENZONATATE 100 MG CAPSULE. PO SCH (08:43)
[2018-06-19] MEDS: PIOGLITAZONE 15 MG TABLET. PO SCH (08:43)
[2018-06-19] MEDS: OXYBUTYNIN CHLORIDE 5 MG TABLET PO SCH (08:43)
[2018-06-19] MEDS: ASPIRIN ENTERIC COATED 81 MG TABLET.DR. PO SCH (08:44)
[2018-06-19] MEDS: AZITHROMYCIN 250 MG TABLET. PO SCH (08:44)
--- NOTE | 2018-06-19 09:30 | NUR ---
CHARLOTTE following pt. Spoke with Elena at [place] regarding Bipap machine. Elena reported she will check on status and notify SW. Will continue to follow. JACE SAMAYOA.
[2018-06-19 11:00] VITALS: BP 146/62
--- NOTE | 2018-06-19 11:51 | PDOC ---
PULMONARY PROGRESS NOTES Subjective PT LESS SOA TODAY Vitals Vital Signs Date Time Temp Pulse Resp B/P (MAP) Pulse Ox O2 Delivery O2 Flow Rate FiO2 06/19/18 10:56 100 Nasal Cannula 2.0 06/19/18 08:44 79 194/72 06/19/18 07:00 98.4 20 98.4 ROS: No Nausea, No Chest Pain, No Abdominal Pain, No Increase Cough General: Alert, No acute distress Lungs: Clear Cardiovascular: S1, S2 Abdomen: Soft, Non-tender Neuro Exam: Alert Extremities: Other (2+edema) Skin: Warm Labs Laboratory Tests Test 06/17/18 16:23 06/17/18 20:43 06/18/18 04:30 06/18/18 07:00 Glucose (Fingerstick) 119 mg/dL (70-99) 212 mg/dL (70-99) 47 mg/dL (70-99) White Blood Count 6.3 x10^3/uL (4.0-11.0) Red Blood Count 3.02 x10^6/uL (3.50-5.40) Hemoglobin 9.2 g/dL (12.0-15.5) Hematocrit 28.5 % (36.0-47.0) Mean Corpuscular Volume 95 fL (79-100) Mean Corpuscular Hemoglobin 31 pg (25-35) Mean Corpuscular Hemoglobin Concent 32 g/dL (31-37) Red Cell Distribution Width 14.8 % (11.5-14.5) Platelet Count 157 x10^3/uL (140-400) Neutrophils (%) (Auto) 68 % (31-73) Lymphocytes (%) (Auto) 18 % (24-48) Monocytes (%) (Auto) 11 % (0-9) Eosinophils (%) (Auto) 3 % (0-3) Basophils (%) (Auto) 1 % (0-3) Neutrophils # (Auto) 4.3 x10^3uL (1.8-7.7) Lymphocytes # (Auto) 1.1 x10^3/uL (1.0-4.8) Monocytes # (Auto) 0.7 x10^3/uL (0.0-1.1) Eosinophils # (Auto) 0.2 x10^3/uL (0.0-0.7) Basophils # (Auto) 0.0 x10^3/uL (0.0-0.2) Sodium Level 144 mmol/L (136-145) Potassium Level 3.6 mmol/L (3.5-5.1) Chloride Level 108 mmol/L (98-107) Carbon Dioxide Level 33 mmol/L (21-32) Anion Gap 3 (6-14) Blood Urea Nitrogen 21 mg/dL (7-20) Creatinine 1.2 mg/dL (0.6-1.0) Estimated GFR (Cockcroft-Gault) 53.1 Glucose Level 57 mg/dL (70-99) Calcium Level 9.6 mg/dL (8.5-10.1) Procalcitonin < 0.10 ng/mL (0.00-0.10) Test 06/18/18 07:21 06/18/18 07:38 06/18/18 11:42 06/18/18 16:05 Glucose (Fingerstick) 52 mg/dL (70-99) 114 mg/dL (70-99) 98 mg/dL (70-99) 102 mg/dL (70-99) Test 06/18/18 20:49 06/19/18 04:30 06/19/18 07:40 Glucose (Fingerstick) 150 mg/dL (70-99) 82 mg/dL (70-99) White Blood Count 6.3 x10^3/uL (4.0-11.0) Red Blood Count 3.11 x10^6/uL (3.50-5.40) Hemoglobin 9.4 g/dL (12.0-15.5) Hematocrit 29.4 % (36.0-47.0) Mean Corpuscular Volume 94 fL (79-100) Mean Corpuscular Hemoglobin 30 pg (25-35) Mean Corpuscular Hemoglobin Concent 32 g/dL (31-37) Red Cell Distribution Width 15.0 % (11.5-14.5) Platelet Count 167 x10^3/uL (140-400) Neutrophils (%) (Auto) 66 % (31-73) Lymphocytes (%) (Auto) 19 % (24-48) Monocytes (%) (Auto) 12 % (0-9) Eosinophils (%) (Auto) 3 % (0-3) Basophils (%) (Auto) 1 % (0-3) Neutrophils # (Auto) 4.2 x10^3uL (1.8-7.7) Lymphocytes # (Auto) 1.2 x10^3/uL (1.0-4.8) Monocytes # (Auto) 0.8 x10^3/uL (0.0-1.1) Eosinophils # (Auto) 0.2 x10^3/uL (0.0-0.7) Basophils # (Auto) 0.0 x10^3/uL (0.0-0.2) Sodium Level 144 mmol/L (136-145) Potassium Level 3.3 mmol/L (3.5-5.1) Chloride Level 107 mmol/L (98-107) Carbon Dioxide Level 32 mmol/L (21-32) Anion Gap 5 (6-14) Blood Urea Nitrogen 21 mg/dL (7-20) Creatinine 1.5 mg/dL (0.6-1.0) Estimated GFR (Cockcroft-Gault) 41.1 Glucose Level 89 mg/dL (70-99) Calcium Level 9.6 mg/dL (8.5-10.1) Laboratory Tests Test 06/18/18 16:05 06/18/18 20:49 06/19/18 04:30 06/19/18 07:40 Glucose (Fingerstick) 102 mg/dL (70-99) 150 mg/dL (70-99) 82 mg/dL (70-99) White Blood Count 6.3 x10^3/uL (4.0-11.0) Red Blood Count 3.11 x10^6/uL (3.50-5.40) Hemoglobin 9.4 g/dL (12.0-15.5) Hematocrit 29.4 % (36.0-47.0) Mean Corpuscular Volume 94 fL (79-100) Mean Corpuscular Hemoglobin 30 pg (25-35) Mean Corpuscular Hemoglobin Concent 32 g/dL (31-37) Red Cell Distribution Width 15.0 % (11.5-14.5) Platelet Count 167 x10^3/uL (140-400) Neutrophils (%) (Auto) 66 % (31-73) Lymphocytes (%) (Auto) 19 % (24-48) Monocytes (%) (Auto) 12 % (0-9) Eosinophils (%) (Auto) 3 % (0-3) Basophils (%) (Auto) 1 % (0-3) Neutrophils # (Auto) 4.2 x10^3uL (1.8-7.7) Lymphocytes # (Auto) 1.2 x10^3/uL (1.0-4.8) Monocytes # (Auto) 0.8 x10^3/uL (0.0-1.1) Eosinophils # (Auto) 0.2 x10^3/uL (0.0-0.7) Basophils # (Auto) 0.0 x10^3/uL (0.0-0.2) Sodium Level 144 mmol/L (136-145) Potassium Level 3.3 mmol/L (3.5-5.1) Chloride Level 107 mmol/L (98-107) Carbon Dioxide Level 32 mmol/L (21-32) Anion Gap 5 (6-14) Blood Urea Nitrogen 21 mg/dL (7-20) Creatinine 1.5 mg/dL (0.6-1.0) Estimated GFR (Cockcroft-Gault) 41.1 Glucose Level 89 mg/dL (70-99) Calcium Level 9.6 mg/dL (8.5-10.1) Medications Active Scripts Medications Dose Route/Sig Max Daily Dose Days Date Category Oxybutynin Chloride 5 Mg Tablet 10 Mg PO HS 06/12/18 Reported Levemir Flextouch (Insulin Detemir) 100 Unit/1 Ml Insuln.pen 40 Unit SQ HS 06/12/18 Reported Pioglitazone Hcl 30 Mg Tablet 30 Mg PO DAILY 06/12/18 Reported Zoloft (Sertraline Hcl) 50 Mg Tablet 1 Tab PO DAILY 06/12/18 Reported Hydrocodone-Apap 5-325 (Hydrocodone Bit/Acetaminophen) 1 Each Tablet 1 Tab PO PRN Q4HRS PRN 28 08/09/16 Rx Carvedilol (Carvedilol) 12.5 Mg Tablet 12.5 Mg PO BIDWMEALS 07/21/16 Reported Atorvastatin Calcium 40 Mg Tablet 40 Mg PO HS 07/21/16 Reported Novolog Flexpen (Insulin Aspart) 100 Unit/1 Ml Insuln.pen 0 Units SQ TIDWMEALS 30 03/17/16 Rx Aspirin Ec (Aspirin) 81 Mg Tablet. 81 Mg PO 03/14/16 Reported Amlodipine Besylate 10 Mg Tablet 10 Mg PO DAILY 03/14/16 Reported Donepezil Hcl 10 Mg Tablet 10 Mg PO HS 03/14/16 Reported Losartan Potassium 100 Mg Tablet 100 Mg PO DAILY 07/24/13 Reported Impression . IMPRESSION: 1. Acute hypercapnic hypoxemic respiratory failure, LIKELY RIGHT HEART FAILURE / ? pneumonia 2. Abnormal x-ray compatible CHF/ ? pneumonia 3. Generalized weakness. 4. Renal insufficiency. 5. Elevated BNP. 6. Obstructive sleep apnea./ on home CPAP 7. Suspect secondary pulmonary hypertension. 8. Suspect right-sided heart failure. 9. NEGATIVE DVT IMPRESSION: No sonographic evidence of acute DVT of the bilateral lower extremity deep veins. Plan . RESP STATUS IS COMPENSATED DC ROCEPHIN. NORMAL PRO-CALCITONIN PRN DIURESIS WILL NEED REHAB / OK WITH SKILL WILL CONTINUE THE SAME PT HAS HER OWN CPAP BARBARA JOHNSON MD Jun 19, 2018 11:50
--- NOTE | 2018-06-19 12:03 | NUR ---
SW following pt. CHARLOTTE re-faxed orders to [facility]. Pt will transport via facility w/c van at 1400. Pt's choice and rights forms verbally consented by pt and copies placed on chart. Spoke with pt's sister Wing who will be bringing pt's CPAP machine. Packet on chart. JACE RN and Physician.
--- NOTE | 2018-06-19 13:50 | NUR ---
Discharge Note: [facility] [place] Discharge instructions and discharge home medications reviewed with Patient and a copy given. All questions have been answered and understanding verbalized. The following instructions and handouts were given: Heart Failure, Lortab. Discontinued lines and drains: 20G Right AC removed. Catheter intact Patient discharged to SNF via transportation. Sister with pt. at time of DC instructions.
--- NOTE | 2018-06-19 14:10 | NUR ---
This nurse called report to receiving RN at [facility]. This nurse gave unit phone number for nurse to call if they have any questions.
[2018-06-28] MEDS ORDERED: METO-239 PO ×2 (13:45→15:58)
[2018-06-28] MEDS ORDERED: FURO-68 PO ×4 (13:45→15:58)
== END 2018-06-19 14:30 | DRG 177 ==
LOC: ER 07:51 → 5 NORTH 09:30
PROVIDERS: ADMIT Internal Medicine; ATTEND Internal Medicine
PROC: 5A09357 Assistance with Respiratory Ventilation, Less than 24 Consecutive Hours, Continuous Positive Airway Pressure (ICD-10-PCS; principal; 2018-06-12)
PROC: 5A09357 Assistance with Respiratory Ventilation, Less than 24 Consecutive Hours, Continuous Positive Airway Pressure (ICD-10-PCS; 2018-06-13)
PROC: 5A09357 Assistance with Respiratory Ventilation, Less than 24 Consecutive Hours, Continuous Positive Airway Pressure (ICD-10-PCS; 2018-06-14)
PROC: 5A09357 Assistance with Respiratory Ventilation, Less than 24 Consecutive Hours, Continuous Positive Airway Pressure (ICD-10-PCS; 2018-06-17)
PROC: 5A09357 Assistance with Respiratory Ventilation, Less than 24 Consecutive Hours, Continuous Positive Airway Pressure (ICD-10-PCS; 2018-06-18)
DX: J15.6 Pneumonia due to other Gram-negative bacteria (principal); I50.31 Acute diastolic (congestive) heart failure; J96.01 Acute respiratory failure with hypoxia; J96.02 Acute respiratory failure with hypercapnia; I13.0 Hypertensive heart and chronic kidney disease with heart failure and stage 1 through stage 4 chronic kidney disease, or unspecified chronic kidney disease; I47.2 Ventricular tachycardia; E87.2 Acidosis; G47.33 Obstructive sleep apnea (adult) (pediatric); N18.3 Chronic kidney disease, stage 3 (moderate); I27.20 Pulmonary hypertension, unspecified; E11.22 Type 2 diabetes mellitus with diabetic chronic kidney disease; E11.51 Type 2 diabetes mellitus with diabetic peripheral angiopathy without gangrene; E66.01 Morbid (severe) obesity due to excess calories; E78.5 Hyperlipidemia, unspecified; F03.90 Unspecified dementia, unspecified severity, without behavioral disturbance, psychotic disturbance, mood disturbance, and anxiety; I27.29 Other secondary pulmonary hypertension; M19.90 Unspecified osteoarthritis, unspecified site; E11.42 Type 2 diabetes mellitus with diabetic polyneuropathy; F32.9 Major depressive disorder, single episode, unspecified; I50.82 Biventricular heart failure; F41.9 Anxiety disorder, unspecified; Z87.440 Personal history of urinary (tract) infections; Z79.4 Long term (current) use of insulin; Z82.49 Family history of ischemic heart disease and other diseases of the circulatory system; Z86.73 Personal history of transient ischemic attack (TIA), and cerebral infarction without residual deficits; Z90.710 Acquired absence of both cervix and uterus; Z87.01 Personal history of pneumonia (recurrent); Z83.3 Family history of diabetes mellitus; Z68.35 Body mass index [BMI] 35.0-35.9, adult; Z90.49 Acquired absence of other specified parts of digestive tract
CPT/HCPCS: 36415; 36600; 71045; 80048; 80053; 80061; 82805; 82962; 83605; 83735; 83880; 84145; 84484; 85025; 87040; 87804; 93005; 93306; 93970; 94640; 94644; 94660; 94760; 96361; 96365; 96375; J0360; J0456; J0696; J1815; J1940; J3475; J7030; J7042; J7050; J7613; J7620; Q0144; 97110; 97116; 97530; 97535; 99285-25; G0378

== ENCOUNTER 2018-06-25 05:30 | Inpatient (IN) | payer OTHER ==
[~2018-06-25] VITALS: Ht 175.3 cm; Wt 142.1 kg
[~2018-06-25 05:30] MED LIST changes: +OXYB5TAB7 PO; +PIOG30TA62 PO; +SERT50TA PO
--- NOTE | 2018-06-25 05:59 | PHYS DOC ---
Past Medical History Past Medical History: Dementia, Diabetes-Type I, Hypertension, TIA, Other Additional Past Medical Histor: OSTEOARTHRITIS (BONNIE HDZ DO) Past Surgical History: Other Additional Past Surgical Histo: NECK SURGERY, FEM POP (BONNIE HDZ DO) Alcohol Use: None Drug Use: None (BONNIE HDZ DO) Adult General Chief Complaint Chief Complaint: SHORTNESS OF BREATH HPI HPI Patient is a 73 year old female who presents with difficulty breathing. Patient is normally on CPAP at bedtime. Her CPAP broke last night and unable to get it repaired until later today. She was on supplemental oxygen for most of the night however early this morning started to desaturate so was sent from the [facility] care facility where she resides to the emergency department for further evaluation and treatment. History is limited from the patient due to her past history of dementia. Patient is currently on heparin following recent admission around June 12, 2018. She was noted on records review to have no evidence of a DVT. The assisted reports that she was has to have a repeat ultrasound today or tomorrow to confirm there is no DVT. Patient is currently on heparin.[] (BONNIE HDZ DO) Review of Systems Review of Systems Constitutional: Denies fever or chills [] Eyes: Denies change in visual acuity, redness, or eye pain [] HENT: Denies nasal congestion or sore throat [] Respiratory: Denies cough, see history of present illness [] Cardiovascular: No chest pain or palpitations[] GI: Denies abdominal pain, nausea, vomiting, bloody stools or diarrhea [] : Denies dysuria or hematuria [] Musculoskeletal: Denies back pain or joint pain [] Integument: Denies rash or skin lesions [] Neurologic: Denies headache, focal weakness or sensory changes [] Endocrine: Denies polyuria or polydipsia [] All other systems were reviewed and found to be within normal limits, except as documented in this note. (BONNIE HDZ DO) Current Medications Current Medications Current Medications Medications (Trade) Dose Ordered Sig/Blue Start Time Stop Time Status Last Admin Dose Admin Albuterol/ Ipratropium (Duoneb) 3 ml 1X ONCE 06/25/18 06:00 06/25/18 06:01 DC 06/25/18 05:57 3 ML Amlodipine Besylate (Norvasc) 10 mg 1X ONCE 06/25/18 06:15 06/25/18 06:16 DC 06/25/18 06:25 10 MG Carvedilol (Coreg) 12.5 mg 1X ONCE 06/25/18 06:15 06/25/18 06:16 DC 06/25/18 06:25 12.5 MG Furosemide (Lasix) 40 mg STK-MED ONCE 06/25/18 06:14 06/25/18 06:15 DC Hydralazine HCl (Apresoline Inj) 10 mg 1X ONCE 06/25/18 07:15 06/25/18 07:16 DC 06/25/18 07:46 10 MG Losartan Potassium (Cozaar) 100 mg 1X ONCE 06/25/18 06:15 06/25/18 06:16 DC 06/25/18 06:25 100 MG (URSZULA POST DO) Allergies Allergies Allergies Coded Allergies Type Severity Reaction Last Updated Verified No Known Drug Allergies 08/04/16 No (GRETEL POSTINA T DO) Physical Exam Physical Exam Constitutional: Well developed, well nourished, no acute distress, non-toxic appearance. [] HENT: Normocephalic, atraumatic, bilateral external ears normal, oropharynx moist, no oral exudates, nose normal. [] Eyes: PERRLA, EOMI, conjunctiva normal, no discharge. [] Neck: Normal range of motion, no tenderness, supple, no stridor. [] Cardiovascular:Heart rate regular rhythm, no murmur [] Lungs & Thorax: Bilateral breath sounds wet auscultation[] Abdomen: Bowel sounds normal, soft, no tenderness, no masses, no pulsatile masses. [] Skin: Warm, dry, no erythema, no rash. [] Back: No tenderness, no CVA tenderness. [] Extremities: No tenderness, no cyanosis, no clubbing, ROM intact, no edema. [] Neurologic: Alert. [] Psychologic: Affect normal, judgement normal, mood normal. [] (BONNIE HDZ DO) Current Patient Data Vital Signs Vital Signs Date Time Temp Pulse Resp B/P (MAP) Pulse Ox O2 Delivery O2 Flow Rate FiO2 06/25/18 07:56 94 BiPAP/CPAP 06/25/18 07:46 69 194/83 06/25/18 05:30 97.5 24 97.5 (URSZULA POST Chato ) Lab Values Laboratory Tests Test 06/25/18 05:46 06/25/18 06:17 06/25/18 06:27 White Blood Count 9.9 x10^3/uL (4.0-11.0) Red Blood Count 3.35 x10^6/uL (3.50-5.40) L Hemoglobin 10.2 g/dL (12.0-15.5) L Hematocrit 32.2 % (36.0-47.0) L Mean Corpuscular Volume 96 fL (79-100) Mean Corpuscular Hemoglobin 31 pg (25-35) Mean Corpuscular Hemoglobin Concent 32 g/dL (31-37) Red Cell Distribution Width 14.8 % (11.5-14.5) H Platelet Count 228 x10^3/uL (140-400) Neutrophils (%) (Auto) 75 % (31-73) H Lymphocytes (%) (Auto) 15 % (24-48) L Monocytes (%) (Auto) 8 % (0-9) Eosinophils (%) (Auto) 1 % (0-3) Basophils (%) (Auto) 0 % (0-3) Neutrophils # (Auto) 7.4 x10^3uL (1.8-7.7) Lymphocytes # (Auto) 1.5 x10^3/uL (1.0-4.8) Monocytes # (Auto) 0.8 x10^3/uL (0.0-1.1) Eosinophils # (Auto) 0.1 x10^3/uL (0.0-0.7) Basophils # (Auto) 0.0 x10^3/uL (0.0-0.2) Prothrombin Time 14.9 SEC (11.7-14.0) H Prothrombin Time INR 1.2 (0.8-1.1) H PTT 33 SEC (24-38) Sodium Level 144 mmol/L (136-145) Potassium Level 4.1 mmol/L (3.5-5.1) Chloride Level 105 mmol/L (98-107) Carbon Dioxide Level 35 mmol/L (21-32) H Anion Gap 4 (6-14) L Blood Urea Nitrogen 23 mg/dL (7-20) H Creatinine 1.2 mg/dL (0.6-1.0) H Estimated GFR (Cockcroft-Gault) 53.1 BUN/Creatinine Ratio 19 (6-20) Glucose Level 156 mg/dL (70-99) H Calcium Level 9.4 mg/dL (8.5-10.1) Total Bilirubin 0.5 mg/dL (0.2-1.0) Aspartate Amino Transferase (AST) 18 U/L (15-37) Alanine Aminotransferase (ALT) 20 U/L (14-59) Alkaline Phosphatase 108 U/L (46-116) Troponin I Quantitative 0.029 ng/mL (0.000-0.055) ZF-Afr-X-Type Natriuretic Peptide 578 pg/mL (0-124) H Total Protein 7.0 g/dL (6.4-8.2) Albumin 3.1 g/dL (3.4-5.0) L Albumin/Globulin Ratio 0.8 (1.0-1.7) L O2 Saturation 89 % (92-99) L Arterial Blood pH 7.26 (7.35-7.45) L Arterial Blood pCO2 at Patient Temp 64 mmHg (35-46) *H Arterial Blood pO2 at Patient Temp 63 mmHg (65-108) L Arterial Blood HCO3 28 mmol/L (21-28) Arterial Blood Base Excess 0 mmol/L (-3-3) FiO2 32 Laboratory Tests 06/25/18 05:46 Laboratory Tests 06/25/18 06:17 (URSZULA POST DO) EKG EKG [] (BONNIE HDZ DO) EKG NSR, HR 69, no significant ST segment changes. (URSZULA POST DO) Radiology/Procedures Radiology/Procedures [] (BONNIE HDZ DO) Radiology/Procedures CXR IMPRESSION: Worsening pulmonary infiltrates and pleural effusions, right greater than left, most likely due to congestive heart failure. A component of pneumonia cannot be excluded. Electronically signed by: Mason Lebron MD (06/25/2018 7:42 AM) [facility] (URSZULA POST DO) Course & Med Decision Making Course & Med Decision Making Pertinent Labs and Imaging studies reviewed. (See chart for details) ED course: Patient arrived, was placed in bed, in tolerated exam well. She was transferred from EMS is CPAP which maintained her oxygen saturation the upper 90s, she was placed on supplemental nasal cannula oxygen which she promptly desatted on. She was then placed on BiPAP which improved her oxygen saturation again. Patient care endorsed to the daytime physician at 6 AM with laboratory and imaging studies pending.[] (BONNIE HDZ DO) Course & Med Decision Making 0612 (Shonda): SAVANA from Dr. Hdz. Patient comfortable on BiPAP. She appears fluid overload on her chest x-ray. Patient also has been hypertensive with systolic blood pressures into 220s. Patient is a somewhat poor historian and unable to state home medications she last took them. Review facility documentation shows that patient is on carvedilol, amlodipine, losartan and daily Lasix. We'll give oral hypertension medications and a dose of IV Lasix. Patient does have +1 pitting edema to bilateral LE. Pending labs. 0711: Improved significantly. Needs to get up to the restroom. Will trial off of BiPAP. Remains HTN with BP systolic 215. Will give IV hydralazine as there may be a component of HTN emergency with flash pulmonary edema. 0753: ABG, approx 30mins after BiPAP with pH of 7.25 and PCO2 of 63. Will place back on BiPAP. BP improved a little to 190 systolic but just given. Will continue to monitor. 0806: Remains critically ill. Will go to [facility] for cute decompensated heart failure requiring BiPAP. Discussed with Dr. Jerry who is agreeable to admission. BP remains high. Will redose hydralazine. (URSZULA POST DO) Dragon Disclaimer Dragon Disclaimer This electronic medical record was generated, in whole or in part, using a voice recognition dictation system. (BONNIE HDZ DO) Departure Departure Impression: Primary Impression: Acute respiratory failure with hypoxia Additional Impressions: Accelerated hypertension Elevated troponin Disposition: ADMITTED INPATIENT Admitting Physician: Mandi Jerry (URSZULA POST DO) Condition: CRITICAL Referrals: TONY VALDES MD (PCP) Critical Care Time Critical care time was 34[] minutes exclusive of procedures. Time was spent in management patient's acute respiratory failure. Patient required aggressive management including BiPAP. Time was also spent in chart review, lab review, imaging review, documentation and discussion with other physician (s). (URSZULA POST DO) Problem Qualifiers BONNIE HDZ DO Jun 25, 2018 05:58 URSZULA POST DO Jun 25, 2018 06:11
[2018-06-25] MEDS ORDERED: IPRATRPIUM/ALBUTEROL 0.5/2.5MG 3 ML NEBU. NEB ONE (06:00)
[2018-06-25 06:11] LABS: BASO % 0 % (0-3); EOS # 0.1 x10^3/uL (0.0-0.7); EOS % 1 % (0-3); HEMATOCRIT 32.2 % (36.0-47.0); HEMOGLOBIN 10.2 g/dL (12.0-15.5); LYMPH # 1.5 x10^3/uL (1.0-4.8); LYMPH % 15 % (24-48); MEAN CORPUSCULAR HEMOGLOBIN 31 pg (25-35); MEAN CORPUSCULAR HGB CONC 32 g/dL (31-37); MEAN CORPUSCULAR VOLUME 96 fL (79-100); MONO # 0.8 x10^3/uL (0.0-1.1); MONO % 8 % (0-9); NEUT # 7.4 x10^3uL (1.8-7.7); NEUT % 75 % (31-73); PLATELET COUNT 228 x10^3/uL (140-400); RED BLOOD COUNT 3.35 x10^6/uL (3.50-5.40); RED CELL DISTRIBUTION WIDTH 14.8 % (11.5-14.5); WHITE BLOOD COUNT 9.9 x10^3/uL (4.0-11.0)
[2018-06-25] MEDS ORDERED: FUROSEMIDE 40 MG/4 ML VIAL. ONE (06:14)
[2018-06-25] MEDS ORDERED: CARVEDILOL 12.5 MG TABLET. PO ONE (06:15)
[2018-06-25] MEDS ORDERED: LOSARTAN POTASSIUM 50 MG TABLET. PO ONE (06:15)
[2018-06-25] MEDS ORDERED: amLODIPine BESYLATE 5 MG TABLET PO ONE (06:15)
[2018-06-25] MEDS ORDERED: FUROSEMIDE 40 MG/4 ML VIAL. IVP ONE (06:15)
[2018-06-25 06:27] LABS: PROTHROMBIN TIME PATIENT 14.9 SEC (11.7-14.0)
[2018-06-25 06:36] LABS: CALCIUM 9.4 mg/dL (8.5-10.1); CREATININE 1.2 mg/dL (0.6-1.0); GFR 53.1; POTASSIUM 4.1 mmol/L (3.5-5.1)
[2018-06-25 06:42] LABS: ALBUMIN 3.1 g/dL (3.4-5.0); ALBUMIN/GLOBULIN RATIO 0.8 (1.0-1.7); TOTAL BILIRUBIN 0.5 mg/dL (0.2-1.0)
[2018-06-25] MEDS ORDERED: hydrALAZINE 20 MG/ML VIAL. IVP ONE ×2 (07:15→08:15)
--- NOTE | 2018-06-25 07:45 | RAD ---
Portable chest, 06/25/2018: HISTORY: Shortness of breath Comparison is made to a study from 06/17/2018. The heart is enlarged. The pulmonary vascularity is prominent with loss of vascular margination. There are infiltrates in the lower chest with blunting of the costophrenic angles compatible with associated pleural fluid. These findings have worsened since the previous study, more so on the right. IMPRESSION: Worsening pulmonary infiltrates and pleural effusions, right greater than left, most likely due to congestive heart failure. A component of pneumonia cannot be excluded. Electronically signed by: Mason Lebron MD (06/25/2018 7:42 AM) [facility]
[2018-06-25 07:47] LABS: BASE EXCESS ABG 0 mmol/L (-3-3); HCO3 ABG 28 mmol/L (21-28); PCO2 ABG 64 mmHg (35-46); PO2 ABG 63 mmHg (65-108); SAT O2 ABG 89 % (92-99)
[2018-06-25 07:48] LABS: FIO2 ABG 32
[2018-06-25] MEDS ORDERED: AMLO10TA8 PO (08:16)
[2018-06-25] MEDS ORDERED: GABA-585 PO (08:16)
[2018-06-25] MEDS ORDERED: METO2.5T PO (08:16)
[2018-06-25] MEDS ORDERED: FURO-68 PO (08:16)
[2018-06-25] MEDS ORDERED: HEPA100D36 SQ (08:45)
--- NOTE | 2018-06-25 09:05 | PDOC1 ---
History and Physical Date of Admission Date of Admission DATE: 06/25/18 TIME: 09:05 Identification/Chief Complaint Chief Complaint SOA in rehab Source Source: Caregiver, Chart review, Patient History of Present Illness History of Present Illness 73-year-old female who was just here a week ago for CHF exacerbation, appropriately discharged to rehabilitation, has ALEXYS supposed to be on CPAP but for some reason she was not wearing the CPAP or BiPAP at rehab - and came in the ER in full respiratory distress needing BiPAP. Off BiPAP she would desat tachypneic and be in respiratory distress again. ABG off BiPAP showed a pH of 7.25 with high CO2 hence maintained now on the BiPAP and admitted to [facility] floor. The dose of Lasix at ER. Known to cardiology and pulmonary, EF of 56% preserved fcn, taken recently, CKD 3, ALEXYS on CPAP, obese with a BMI 35. History of PVD with recent right leg intervention. Patient is hungry and requests me to eat. Better on the BiPAP. I did educate her at seen at the ER to keep BiPAP on because of respiratory distress and hypercapnia. Past Medical History Cardiovascular: HTN, Hyperlipidemia, Other Pulmonary: Other CENTRAL NERVOUS SYSTEM: Periperal neuropathy, TIA GI: No pertinent hx Heme/Onc: No pertinent hx Hepatobiliary: No pertinent hx Psych: Anxiety, Depression Musculoskeletal: Osteoarthritis Rheumatologic: No pertinent hx Infectious disease: No pertinent hx Renal/: Chronic renal insuff, UTI, Other Endocrine: Diabetes Past Surgical History Past Surgical History: Tonsillectomy, Hysterectomy, Other Family History Family History: Hypertension Social History Smoke: No ALCOHOL: none Drugs: None Current Problem List Problem List Problems Medical Problems: (1) Elevated troponin Status: Acute Current Medications Current Medications Current Medications Albuterol/ Ipratropium (Duoneb) 3 ml 1X ONCE NEB Last administered on at 05:57; Start 06/25/18 at 06:00; Stop 06/25/18 at 06:01; Status DC Carvedilol (Coreg) 12.5 mg 1X ONCE PO Last administered on 06/25/18at 06:25; Start 06/25/18 at 06:15; Stop 06/25/18 at 06:16; Status DC Amlodipine Besylate (Norvasc) 10 mg 1X ONCE PO Last administered on 06/25/18at 06:25; Start 06/25/18 at 06:15; Stop 06/25/18 at 06:16; Status DC Losartan Potassium (Cozaar) 100 mg 1X ONCE PO Last administered on 06/25/18at 06:25; Start 06/25/18 at 06:15; Stop 06/25/18 at 06:16; Status DC Furosemide (Lasix) 40 mg 1X ONCE IVP Last administered on 06/25/18at 06:15; Start 06/25/18 at 06:15; Stop 06/25/18 at 06:16; Status DC Furosemide (Lasix) 40 mg STK-MED ONCE .ROUTE ; Start 06/25/18 at 06:14; Stop 05/01 at 06:15; Status DC Hydralazine HCl (Apresoline Inj) 10 mg 1X ONCE IVP Last administered on at 07:46; Start 06/25/18 at 07:15; Stop 06/25/18 at 07:16; Status DC Hydralazine HCl (Apresoline Inj) 20 mg 1X ONCE IVP Last administered on at 08:16; Start 06/25/18 at 08:15; Stop 06/25/18 at 08:16; Status DC Active Scripts Active Hydrocodone-Apap 5-325 (Hydrocodone Bit/Acetaminophen) 1 Each Tablet 1 Tab PO PRN Q4HRS PRN 7 Days Novolog Flexpen (Insulin Aspart) 100 Unit/1 Ml Insuln.pen 0 Units SQ TIDWMEALS 30 Days Reported Heparin 1,000 Unit/10 (100/ml) (Heparin Sodium,Porcine/Pf) 1,000 Unit/10 Ml Syringe 5,000 Unit SQ TID Gabapentin (Gabapentin) 100 Mg Capsule 100 Mg PO BID Metolazone 2.5 Mg Tablet 2.5 Mg PO DAILY Lasix (Furosemide) 40 Mg Tablet 40 Mg PO DAILY Oxybutynin Chloride 5 Mg Tablet 10 Mg PO HS Levemir Flextouch (Insulin Detemir) 100 Unit/1 Ml Insuln.pen 40 Unit SQ HS Pioglitazone Hcl 30 Mg Tablet 30 Mg PO DAILY Zoloft (Sertraline Hcl) 50 Mg Tablet 1 Tab PO DAILY Carvedilol (Carvedilol) 12.5 Mg Tablet 12.5 Mg PO BIDWMEALS Atorvastatin Calcium 40 Mg Tablet 40 Mg PO HS Aspirin Ec (Aspirin) 81 Mg Tablet. 81 Mg PO Amlodipine Besylate 10 Mg Tablet 10 Mg PO DAILY Donepezil Hcl 10 Mg Tablet 10 Mg PO HS Losartan Potassium 100 Mg Tablet 100 Mg PO DAILY Allergies Allergies: Coded Allergies: No Known Drug Allergies (Unverified , 08/04/16) ROS Review of System S OA, no chest pain, the rest of ROS negative Physical Exam General: moderate distress HEENT: Atraumatic, PERRLA, EOMI, Mucous membr. moist/pink Lungs: Normal air movement, Other (symmetrical chest expansion, decreased breath sounds, diminished in the bases but no wheezing appreciable) Heart: S1S2, RRR, no thrills, no rubs Breasts: Normal, Rt breast nml w/o mass, Lt breast nml w/o mass, Nipples normal Abdomen: Soft, No tenderness, Other (obese, normoactive bowel sounds, nontender ) Rectal Exam: not examined PELVIC: Nml ext genitalia Extremities: No clubbing, No cyanosis, No edema, Normal pulses, No tenderness/ swelling Skin: No rashes, No breakdown, No significant lesion Neuro: Normal gait, Normal speech, Strength at 5/5 X4 ext, Normal tone, Sensation intact, Cranial nerves 3-12 NL, Reflexes 2+ Psych/Mental Status: Mental status NL, Mood NL Vitals Vitals Vital Signs Date Time Temp Pulse Resp B/P (MAP) Pulse Ox O2 Delivery O2 Flow Rate FiO2 06/25/18 08:16 69 200/87 06/25/18 07:56 94 BiPAP/CPAP 06/25/18 07:43 3.0 06/25/18 05:30 97.5 24 97.5 Labs Labs Laboratory Tests Test 06/25/18 05:46 06/25/18 06:17 06/25/18 06:27 White Blood Count 9.9 x10^3/uL (4.0-11.0) Red Blood Count 3.35 x10^6/uL (3.50-5.40) Hemoglobin 10.2 g/dL (12.0-15.5) Hematocrit 32.2 % (36.0-47.0) Mean Corpuscular Volume 96 fL (79-100) Mean Corpuscular Hemoglobin 31 pg (25-35) Mean Corpuscular Hemoglobin Concent 32 g/dL (31-37) Red Cell Distribution Width 14.8 % (11.5-14.5) Platelet Count 228 x10^3/uL (140-400) Neutrophils (%) (Auto) 75 % (31-73) Lymphocytes (%) (Auto) 15 % (24-48) Monocytes (%) (Auto) 8 % (0-9) Eosinophils (%) (Auto) 1 % (0-3) Basophils (%) (Auto) 0 % (0-3) Neutrophils # (Auto) 7.4 x10^3uL (1.8-7.7) Lymphocytes # (Auto) 1.5 x10^3/uL (1.0-4.8) Monocytes # (Auto) 0.8 x10^3/uL (0.0-1.1) Eosinophils # (Auto) 0.1 x10^3/uL (0.0-0.7) Basophils # (Auto) 0.0 x10^3/uL (0.0-0.2) Prothrombin Time 14.9 SEC (11.7-14.0) Prothromb Time International Ratio 1.2 (0.8-1.1) Activated Partial Thromboplast Time 33 SEC (24-38) Sodium Level 144 mmol/L (136-145) Potassium Level 4.1 mmol/L (3.5-5.1) Chloride Level 105 mmol/L (98-107) Carbon Dioxide Level 35 mmol/L (21-32) Anion Gap 4 (6-14) Blood Urea Nitrogen 23 mg/dL (7-20) Creatinine 1.2 mg/dL (0.6-1.0) Estimated GFR (Cockcroft-Gault) 53.1 BUN/Creatinine Ratio 19 (6-20) Glucose Level 156 mg/dL (70-99) Calcium Level 9.4 mg/dL (8.5-10.1) Total Bilirubin 0.5 mg/dL (0.2-1.0) Aspartate Amino Transf (AST/SGOT) 18 U/L (15-37) Alanine Aminotransferase (ALT/SGPT) 20 U/L (14-59) Alkaline Phosphatase 108 U/L (46-116) Troponin I Quantitative 0.029 ng/mL (0.000-0.055) PA-Fli-F-Type Natriuretic Peptide 578 pg/mL (0-124) Total Protein 7.0 g/dL (6.4-8.2) Albumin 3.1 g/dL (3.4-5.0) Albumin/Globulin Ratio 0.8 (1.0-1.7) O2 Saturation 89 % (92-99) Arterial Blood pH 7.26 (7.35-7.45) Arterial Blood pCO2 at Patient Temp 64 mmHg (35-46) Arterial Blood pO2 at Patient Temp 63 mmHg (65-108) Arterial Blood HCO3 28 mmol/L (21-28) Arterial Blood Base Excess 0 mmol/L (-3-3) FiO2 32 Laboratory Tests Test 06/25/18 05:46 06/25/18 06:17 06/25/18 06:27 White Blood Count 9.9 x10^3/uL (4.0-11.0) Red Blood Count 3.35 x10^6/uL (3.50-5.40) Hemoglobin 10.2 g/dL (12.0-15.5) Hematocrit 32.2 % (36.0-47.0) Mean Corpuscular Volume 96 fL (79-100) Mean Corpuscular Hemoglobin 31 pg (25-35) Mean Corpuscular Hemoglobin Concent 32 g/dL (31-37) Red Cell Distribution Width 14.8 % (11.5-14.5) Platelet Count 228 x10^3/uL (140-400) Neutrophils (%) (Auto) 75 % (31-73) Lymphocytes (%) (Auto) 15 % (24-48) Monocytes (%) (Auto) 8 % (0-9) Eosinophils (%) (Auto) 1 % (0-3) Basophils (%) (Auto) 0 % (0-3) Neutrophils # (Auto) 7.4 x10^3uL (1.8-7.7) Lymphocytes # (Auto) 1.5 x10^3/uL (1.0-4.8) Monocytes # (Auto) 0.8 x10^3/uL (0.0-1.1) Eosinophils # (Auto) 0.1 x10^3/uL (0.0-0.7) Basophils # (Auto) 0.0 x10^3/uL (0.0-0.2) Prothrombin Time 14.9 SEC (11.7-14.0) Prothromb Time International Ratio 1.2 (0.8-1.1) Activated Partial Thromboplast Time 33 SEC (24-38) Sodium Level 144 mmol/L (136-145) Potassium Level 4.1 mmol/L (3.5-5.1) Chloride Level 105 mmol/L (98-107) Carbon Dioxide Level 35 mmol/L (21-32) Anion Gap 4 (6-14) Blood Urea Nitrogen 23 mg/dL (7-20) Creatinine 1.2 mg/dL (0.6-1.0) Estimated GFR (Cockcroft-Gault) 53.1 BUN/Creatinine Ratio 19 (6-20) Glucose Level 156 mg/dL (70-99) Calcium Level 9.4 mg/dL (8.5-10.1) Total Bilirubin 0.5 mg/dL (0.2-1.0) Aspartate Amino Transf (AST/SGOT) 18 U/L (15-37) Alanine Aminotransferase (ALT/SGPT) 20 U/L (14-59) Alkaline Phosphatase 108 U/L (46-116) Troponin I Quantitative 0.029 ng/mL (0.000-0.055) LI-Vsv-B-Type Natriuretic Peptide 578 pg/mL (0-124) Total Protein 7.0 g/dL (6.4-8.2) Albumin 3.1 g/dL (3.4-5.0) Albumin/Globulin Ratio 0.8 (1.0-1.7) O2 Saturation 89 % (92-99) Arterial Blood pH 7.26 (7.35-7.45) Arterial Blood pCO2 at Patient Temp 64 mmHg (35-46) Arterial Blood pO2 at Patient Temp 63 mmHg (65-108) Arterial Blood HCO3 28 mmol/L (21-28) Arterial Blood Base Excess 0 mmol/L (-3-3) FiO2 32 VTE Prophylaxis Ordered VTE Prophylaxis Devices: Yes VTE Pharmacological Prophylaxi: Yes Assessment/Plan Assessment/Plan Acute hypercapnic respiratory failure-pickwickian syndrome - pH 7.25 ALEXYS on CPAP-Missed. CPAP last night Obesity, BMI 35 Preserved EF, 56%-recent echo CK D stage 3 Dyslipidemia Hypertension, controlled Diabetes type 2 on insulin PVD s/p right popliteal to peroneal artery bypass. PLAN: Admit 2 midnights, [facility] floor Back to rehabilitation on discharge Taking Lasix 40 once a day at residential-I did put Lasix 40 IV daily Cards consult BiPAP for now Cardiac diet when off BiPAP Consult pulmonary for the BiPAP PT OT AVoid Nephrotoxins if possible seen at ER CHYNA JEWELL MD Jun 25, 2018 09:05
[2018-06-25] MEDS ORDERED: ACETAMINOPHEN 500 MG TABLET PO PRN (09:30)
[2018-06-25] MEDS ORDERED: HYDROcodone/APAP 5/325MG 1 TAB TABLET PO PRN (09:30)
[2018-06-25] MEDS ORDERED: DEXTROSE 50% 25 GM / 50ML DISP.SYRIN. IV PRN (09:30)
[2018-06-25] MEDS ORDERED: ACETAMINOPHEN/CODEINE 300/30MG TABLET. PO PRN (09:30)
--- NOTE | 2018-06-25 09:34 | EKG ---
[facility] [address] [place] [address] Test Date: 2018-06-25 Test Time: 05:50:13 Pat Name: BURT HOWARD Department: Room: 208 1 Gender: F Pilot Manager: : 1945 Requested By: BONNIE GOMEZ Order Number: [id number] Reading MD: Spenser Castro MD Measurements Intervals [place] Rate: 69 P: MO: QRS: 60 QRSD: 90 T: 130 QT: 366 QTc: 394 Interpretive Statements SR NON-SPECIFIC ST/T CHANGES Electronically Signed On 06-27-2018 13:54:20 SKIMMER by Spenser Castro MD
[2018-06-25] MEDS ORDERED: FUROSEMIDE 40 MG/4 ML VIAL. IVP SCH (10:00)
[2018-06-25] MEDS: PIOGLITAZONE 15 MG TABLET. PO SCH (10:00)
[2018-06-25] MEDS: CARVEDILOL 12.5 MG TABLET. PO SCH ×2 (10:00→17:41)
[2018-06-25] MEDS: LOSARTAN POTASSIUM 50 MG TABLET. PO SCH (10:00)
[2018-06-25] MEDS: amLODIPine BESYLATE 10 MG TABLET PO SCH (10:00)
[2018-06-25 10:10] VITALS: BP 183/75
[2018-06-25] MEDS: INSULIN LISPRO 300 UNITS/3 ML INSULN.PEN. SQ SCH ×2 (12:00→17:42)
[2018-06-25] MEDS: IPRATRPIUM/ALBUTEROL 0.5/2.5MG 3 ML NEBU. NEB SCH ×3 (12:00→20:02)
[2018-06-25] MEDS ORDERED: NON FORMULARY ITEM (Insulin Aspart (Novolog Flexpen) 0 UNITS) SQ SCH (12:00)
[2018-06-25] MEDS: metOLazone 2.5 MG TABLET PO SCH (12:54)
[2018-06-25] MEDS: SERTRALINE 50 MG TABLET. PO SCH (12:55)
[2018-06-25] MEDS: GABAPENTIN 100 MG CAPSULE. PO SCH ×2 (12:55→21:18)
[2018-06-25] MEDS: ASPIRIN ENTERIC COATED 81 MG TABLET.DR. PO SCH (12:55)
[2018-06-25 14:00] VITALS: BP 172/72
[2018-06-25] MEDS ORDERED: hydrALAZINE 20 MG/ML VIAL. IVP PRN (14:00)
--- NOTE | 2018-06-25 14:05 | PDOC2 ---
CARDIAC CONSULT DATE OF CONSULT Date of Consult DATE: 06/25/18 TIME: 13:38 REASON FOR CONSULT Reason for Consult: CHF REFERRING PHYSICIAN Referring Physician: Rosalino SOURCE Source: Caregiver (sister), Chart review, Patient HISTORY OF PRESENT ILLNESS HISTORY OF PRESENT ILLNESS This is a 73 yo female admitted for complains of SOA. Reports that she has been more SOA in the 24 hours and worse after her CPAP broke. She has leg swelling, orthopnea. She came from [facility] and according to her family member , she has been eating well, but weak, and noticed no chest pain but generalized body edema. Denies any palpitations and no fall. she has been using her walker at the facility. She was recently seen few weeks ago with pneumonia and CHF. Upon admission her HTN was uncontrolled and was hypoxic and hypercapnic. Presently drowsy and unable to provide me with details so her family member provided with some information. PAST MEDICAL HISTORY Past Medical History Cardiovascular: HTN, Hyperlipidemia, Other (PVD) Pulmonary: Other (ALEXYS with CPAP) CENTRAL NERVOUS SYSTEM: Periperal neuropathy, TIA GI: No pertinent hx Heme/Onc: No pertinent hx Hepatobiliary: No pertinent hx Psych: Anxiety, Depression Musculoskeletal: Osteoarthritis Rheumatologic: No pertinent hx Infectious disease: No pertinent hx ENT: No pertinent hx Renal/: Chronic renal insuff, UTI, Other (urgency ) Endocrine: Diabetes PAST SURGICAL HISTORY Past Surgical History Tonsillectomy, Hysterectomy, Other (Right popliteal to peroneal artery bypass graft, right surgery) FAMILY HISTORY Family History: Hypertension SOCIAL HISTORY Smoke: No ALCOHOL: none Drugs: None Lives: with Family CURRENT MEDICATIONS CURRENT MEDICATIONS Current Medications Medications (Trade) Dose Ordered Sig/Blue Route PRN Reason Start Time Stop Time Status Last Admin Dose Admin Albuterol/ Ipratropium (Duoneb) 3 ml 1X ONCE NEB 06/25/18 06:00 06/25/18 06:01 DC 06/25/18 05:57 Carvedilol (Coreg) 12.5 mg 1X ONCE PO 06/25/18 06:15 06/25/18 06:16 DC 06/25/18 06:25 Amlodipine Besylate (Norvasc) 10 mg 1X ONCE PO 06/25/18 06:15 06/25/18 06:16 DC 06/25/18 06:25 Losartan Potassium (Cozaar) 100 mg 1X ONCE PO 06/25/18 06:15 06/25/18 06:16 DC 06/25/18 06:25 Furosemide (Lasix) 40 mg 1X ONCE IVP 06/25/18 06:15 06/25/18 06:16 DC 06/25/18 06:15 Hydralazine HCl (Apresoline Inj) 10 mg 1X ONCE IVP 06/25/18 07:15 06/25/18 07:16 DC 06/25/18 07:46 Hydralazine HCl (Apresoline Inj) 20 mg 1X ONCE IVP 06/25/18 08:15 06/25/18 08:16 DC 06/25/18 08:16 Albuterol/ Ipratropium (Duoneb) 3 ml RTQID NEB 06/25/18 12:00 06/25/18 12:00 Aspirin (Ecotrin) 81 mg DAILY PO 06/25/18 10:00 06/25/18 12:55 Gabapentin (Neurontin) 100 mg BID PO 06/25/18 10:00 06/25/18 12:55 Sertraline HCl (Zoloft) 50 mg DAILY PO 06/25/18 10:00 06/25/18 12:55 Metolazone (Zaroxolyn) 2.5 mg DAILY PO 06/25/18 10:00 06/25/18 12:54 Furosemide (Lasix) 40 mg DAILY IVP 06/25/18 10:00 06/25/18 12:54 Acetaminophen (Tylenol) 500 mg PRN Q6HRS PRN PO MILD PAIN / TEMP 06/25/18 09:30 06/25/18 12:56 ALLERGIES ALLERGIES: Coded Allergies: No Known Drug Allergies (Unverified , 08/04/16) ROS Review of System limited, pt is drowsy PHYSICAL EXAM General: Cooperative, No acute distress, Other (drowsy) HEENT: Atraumatic, Mucous membr. moist/pink Lungs: Other (basilar crackles) Heart: Regular rate (SR), Other (distant heart sounds) Extremities: No cyanosis, Other (3+ bilateral LE pitting edema) Skin: No breakdown, No significant lesion Neuro: Other (bipap in place) MUSCULOSKELETAL: Osteoarthritic changes both hands VITALS VITALS Vital Signs Date Time Temp Pulse Resp B/P (MAP) Pulse Ox O2 Delivery O2 Flow Rate FiO2 06/25/18 12:00 99 BiPAP/CPAP 06/25/18 10:10 97.5 66 27 183/75 (111) 97.5 06/25/18 07:43 3.0 LABS Lab: Laboratory Tests Test 06/25/18 05:46 06/25/18 06:17 06/25/18 06:27 06/25/18 11:15 White Blood Count 9.9 x10^3/uL (4.0-11.0) Red Blood Count 3.35 x10^6/uL (3.50-5.40) Hemoglobin 10.2 g/dL (12.0-15.5) Hematocrit 32.2 % (36.0-47.0) Mean Corpuscular Volume 96 fL (79-100) Mean Corpuscular Hemoglobin 31 pg (25-35) Mean Corpuscular Hemoglobin Concent 32 g/dL (31-37) Red Cell Distribution Width 14.8 % (11.5-14.5) Platelet Count 228 x10^3/uL (140-400) Neutrophils (%) (Auto) 75 % (31-73) Lymphocytes (%) (Auto) 15 % (24-48) Monocytes (%) (Auto) 8 % (0-9) Eosinophils (%) (Auto) 1 % (0-3) Basophils (%) (Auto) 0 % (0-3) Neutrophils # (Auto) 7.4 x10^3uL (1.8-7.7) Lymphocytes # (Auto) 1.5 x10^3/uL (1.0-4.8) Monocytes # (Auto) 0.8 x10^3/uL (0.0-1.1) Eosinophils # (Auto) 0.1 x10^3/uL (0.0-0.7) Basophils # (Auto) 0.0 x10^3/uL (0.0-0.2) Prothrombin Time 14.9 SEC (11.7-14.0) Prothromb Time International Ratio 1.2 (0.8-1.1) Activated Partial Thromboplast Time 33 SEC (24-38) Sodium Level 144 mmol/L (136-145) Potassium Level 4.1 mmol/L (3.5-5.1) Chloride Level 105 mmol/L (98-107) Carbon Dioxide Level 35 mmol/L (21-32) Anion Gap 4 (6-14) Blood Urea Nitrogen 23 mg/dL (7-20) Creatinine 1.2 mg/dL (0.6-1.0) Estimated GFR (Cockcroft-Gault) 53.1 BUN/Creatinine Ratio 19 (6-20) Glucose Level 156 mg/dL (70-99) Calcium Level 9.4 mg/dL (8.5-10.1) Total Bilirubin 0.5 mg/dL (0.2-1.0) Aspartate Amino Transf (AST/SGOT) 18 U/L (15-37) Alanine Aminotransferase (ALT/SGPT) 20 U/L (14-59) Alkaline Phosphatase 108 U/L (46-116) Troponin I Quantitative 0.029 ng/mL (0.000-0.055) 0.030 ng/mL (0.000-0.055) PD-Yfj-Z-Type Natriuretic Peptide 578 pg/mL (0-124) Total Protein 7.0 g/dL (6.4-8.2) Albumin 3.1 g/dL (3.4-5.0) Albumin/Globulin Ratio 0.8 (1.0-1.7) O2 Saturation 89 % (92-99) Arterial Blood pH 7.26 (7.35-7.45) Arterial Blood pCO2 at Patient Temp 64 mmHg (35-46) Arterial Blood pO2 at Patient Temp 63 mmHg (65-108) Arterial Blood HCO3 28 mmol/L (21-28) Arterial Blood Base Excess 0 mmol/L (-3-3) FiO2 32 Test 06/25/18 13:11 Glucose (Fingerstick) 136 mg/dL (70-99) ECHOCARDIOGRAM ECHOCARDIOGRAM <Conclusion> The left ventricular systolic function is normal. The Ejection Fraction is 55%. There is normal LV segmental wall motion. Trace mitral regurgitation. Trace tricuspid regurgitation. There is no evidence of significant pericardial effusion. DATE: 06/12/18 1306 ASSESSMENT/PLAN ASSESSMENT/PLAN 1. Acute on chronic hypoxic respiratory failure/pleural effusion: +ALEXYS with recent PNA and CHF 2. Acute on chronic diastolic CHF: recent EF at 55%, multifactorial 3. Malignant hypertension; 229/98 4. DM2/HLP 5. CKD3 6. ALEXYS/pulmonary HTN: CPAP broken 7. PVD s/p right popliteal to peroneal artery bypass. 8. Dementia Recommendations 1. Lasix therapy 2. Continue BP regimen. Optimize. Add hydralazine. 3. Bipap. pulmonary consult pending. 4. Continue with secondary prevention JACY SYED APRN Jun 25, 2018 14:05
[2018-06-25] MEDS: HEPARIN for SUB-Q USE 5,000 UNIT/ML VIAL. SQ SCH ×2 (14:31→21:29)
--- NOTE | 2018-06-25 14:40 | PDOC ---
PULMONARY PROGRESS NOTES Vitals Vital Signs Date Time Temp Pulse Resp B/P (MAP) Pulse Ox O2 Delivery O2 Flow Rate FiO2 06/25/18 14:31 66 183/75 06/25/18 12:00 99 BiPAP/CPAP 06/25/18 10:10 97.5 27 97.5 06/25/18 07:43 3.0 General: Alert, No acute distress Lungs: Clear Cardiovascular: S1, S2 Abdomen: Soft, Non-tender Extremities: Other Labs Laboratory Tests Test 06/25/18 05:46 06/25/18 06:17 06/25/18 06:27 06/25/18 11:15 White Blood Count 9.9 x10^3/uL (4.0-11.0) Red Blood Count 3.35 x10^6/uL (3.50-5.40) Hemoglobin 10.2 g/dL (12.0-15.5) Hematocrit 32.2 % (36.0-47.0) Mean Corpuscular Volume 96 fL (79-100) Mean Corpuscular Hemoglobin 31 pg (25-35) Mean Corpuscular Hemoglobin Concent 32 g/dL (31-37) Red Cell Distribution Width 14.8 % (11.5-14.5) Platelet Count 228 x10^3/uL (140-400) Neutrophils (%) (Auto) 75 % (31-73) Lymphocytes (%) (Auto) 15 % (24-48) Monocytes (%) (Auto) 8 % (0-9) Eosinophils (%) (Auto) 1 % (0-3) Basophils (%) (Auto) 0 % (0-3) Neutrophils # (Auto) 7.4 x10^3uL (1.8-7.7) Lymphocytes # (Auto) 1.5 x10^3/uL (1.0-4.8) Monocytes # (Auto) 0.8 x10^3/uL (0.0-1.1) Eosinophils # (Auto) 0.1 x10^3/uL (0.0-0.7) Basophils # (Auto) 0.0 x10^3/uL (0.0-0.2) Prothrombin Time 14.9 SEC (11.7-14.0) Prothromb Time International Ratio 1.2 (0.8-1.1) Activated Partial Thromboplast Time 33 SEC (24-38) Sodium Level 144 mmol/L (136-145) Potassium Level 4.1 mmol/L (3.5-5.1) Chloride Level 105 mmol/L (98-107) Carbon Dioxide Level 35 mmol/L (21-32) Anion Gap 4 (6-14) Blood Urea Nitrogen 23 mg/dL (7-20) Creatinine 1.2 mg/dL (0.6-1.0) Estimated GFR (Cockcroft-Gault) 53.1 BUN/Creatinine Ratio 19 (6-20) Glucose Level 156 mg/dL (70-99) Calcium Level 9.4 mg/dL (8.5-10.1) Total Bilirubin 0.5 mg/dL (0.2-1.0) Aspartate Amino Transf (AST/SGOT) 18 U/L (15-37) Alanine Aminotransferase (ALT/SGPT) 20 U/L (14-59) Alkaline Phosphatase 108 U/L (46-116) Troponin I Quantitative 0.029 ng/mL (0.000-0.055) 0.030 ng/mL (0.000-0.055) NJ-Tby-Y-Type Natriuretic Peptide 578 pg/mL (0-124) Total Protein 7.0 g/dL (6.4-8.2) Albumin 3.1 g/dL (3.4-5.0) Albumin/Globulin Ratio 0.8 (1.0-1.7) O2 Saturation 89 % (92-99) Arterial Blood pH 7.26 (7.35-7.45) Arterial Blood pCO2 at Patient Temp 64 mmHg (35-46) Arterial Blood pO2 at Patient Temp 63 mmHg (65-108) Arterial Blood HCO3 28 mmol/L (21-28) Arterial Blood Base Excess 0 mmol/L (-3-3) FiO2 32 Test 06/25/18 13:11 Glucose (Fingerstick) 136 mg/dL (70-99) Laboratory Tests Test 06/25/18 05:46 06/25/18 06:17 06/25/18 06:27 06/25/18 11:15 White Blood Count 9.9 x10^3/uL (4.0-11.0) Red Blood Count 3.35 x10^6/uL (3.50-5.40) Hemoglobin 10.2 g/dL (12.0-15.5) Hematocrit 32.2 % (36.0-47.0) Mean Corpuscular Volume 96 fL (79-100) Mean Corpuscular Hemoglobin 31 pg (25-35) Mean Corpuscular Hemoglobin Concent 32 g/dL (31-37) Red Cell Distribution Width 14.8 % (11.5-14.5) Platelet Count 228 x10^3/uL (140-400) Neutrophils (%) (Auto) 75 % (31-73) Lymphocytes (%) (Auto) 15 % (24-48) Monocytes (%) (Auto) 8 % (0-9) Eosinophils (%) (Auto) 1 % (0-3) Basophils (%) (Auto) 0 % (0-3) Neutrophils # (Auto) 7.4 x10^3uL (1.8-7.7) Lymphocytes # (Auto) 1.5 x10^3/uL (1.0-4.8) Monocytes # (Auto) 0.8 x10^3/uL (0.0-1.1) Eosinophils # (Auto) 0.1 x10^3/uL (0.0-0.7) Basophils # (Auto) 0.0 x10^3/uL (0.0-0.2) Prothrombin Time 14.9 SEC (11.7-14.0) Prothromb Time International Ratio 1.2 (0.8-1.1) Activated Partial Thromboplast Time 33 SEC (24-38) Sodium Level 144 mmol/L (136-145) Potassium Level 4.1 mmol/L (3.5-5.1) Chloride Level 105 mmol/L (98-107) Carbon Dioxide Level 35 mmol/L (21-32) Anion Gap 4 (6-14) Blood Urea Nitrogen 23 mg/dL (7-20) Creatinine 1.2 mg/dL (0.6-1.0) Estimated GFR (Cockcroft-Gault) 53.1 BUN/Creatinine Ratio 19 (6-20) Glucose Level 156 mg/dL (70-99) Calcium Level 9.4 mg/dL (8.5-10.1) Total Bilirubin 0.5 mg/dL (0.2-1.0) Aspartate Amino Transf (AST/SGOT) 18 U/L (15-37) Alanine Aminotransferase (ALT/SGPT) 20 U/L (14-59) Alkaline Phosphatase 108 U/L (46-116) Troponin I Quantitative 0.029 ng/mL (0.000-0.055) 0.030 ng/mL (0.000-0.055) YQ-Prm-V-Type Natriuretic Peptide 578 pg/mL (0-124) Total Protein 7.0 g/dL (6.4-8.2) Albumin 3.1 g/dL (3.4-5.0) Albumin/Globulin Ratio 0.8 (1.0-1.7) O2 Saturation 89 % (92-99) Arterial Blood pH 7.26 (7.35-7.45) Arterial Blood pCO2 at Patient Temp 64 mmHg (35-46) Arterial Blood pO2 at Patient Temp 63 mmHg (65-108) Arterial Blood HCO3 28 mmol/L (21-28) Arterial Blood Base Excess 0 mmol/L (-3-3) FiO2 32 Test 06/25/18 13:11 Glucose (Fingerstick) 136 mg/dL (70-99) Medications Active Scripts Medications Dose Route/Sig Max Daily Dose Days Date Category Heparin 1,000 Unit/10 (100/ml) (Heparin Sodium,Porcine/Pf) 1,000 Unit/10 Ml Syringe 5,000 Unit SQ TID 06/25/18 Reported Gabapentin (Gabapentin) 100 Mg Capsule 100 Mg PO BID 06/25/18 Reported Metolazone 2.5 Mg Tablet 2.5 Mg PO DAILY 06/25/18 Reported Lasix (Furosemide) 40 Mg Tablet 40 Mg PO DAILY 06/25/18 Reported Hydrocodone-Apap 5-325 (Hydrocodone Bit/Acetaminophen) 1 Each Tablet 1 Tab PO PRN Q4HRS PRN 7 06/18/18 Rx Oxybutynin Chloride 5 Mg Tablet 10 Mg PO HS 06/12/18 Reported Levemir Flextouch (Insulin Detemir) 100 Unit/1 Ml Insuln.pen 40 Unit SQ HS 06/12/18 Reported Pioglitazone Hcl 30 Mg Tablet 30 Mg PO DAILY 06/12/18 Reported Zoloft (Sertraline Hcl) 50 Mg Tablet 1 Tab PO DAILY 06/12/18 Reported Carvedilol (Carvedilol) 12.5 Mg Tablet 12.5 Mg PO BIDWMEALS 07/21/16 Reported Atorvastatin Calcium 40 Mg Tablet 40 Mg PO HS 07/21/16 Reported Novolog Flexpen (Insulin Aspart) 100 Unit/1 Ml Insuln.pen 0 Units SQ TIDWMEALS 30 03/17/16 Rx Aspirin Ec (Aspirin) 81 Mg Tablet.dr 81 Mg PO 03/14/16 Reported Amlodipine Besylate 10 Mg Tablet 10 Mg PO DAILY 03/14/16 Reported Donepezil Hcl 10 Mg Tablet 10 Mg PO HS 03/14/16 Reported Losartan Potassium 100 Mg Tablet 100 Mg PO DAILY 07/24/13 Reported Impression . FULL NOTE DICTATED SEE ORDERS MOSTLY CHF NO PNEUMONIA WILL REPEAT TATI D/W RN AND FAMILY ALLEN CHEEK MD Jun 25, 2018 14:40
[2018-06-25 15:00] VITALS: BP 186/78
[2018-06-25 16:00] VITALS: BP 175/92
[2018-06-25 17:08] LABS: BASE EXCESS ABG 6 mmol/L (-3-3); HCO3 ABG 32 mmol/L (21-28); PCO2 ABG 57 mmHg (35-46); PO2 ABG 63 mmHg (65-108); SAT O2 ABG 91 % (92-99)
[2018-06-25 17:11] LABS: FIO2 ABG 28
[2018-06-25] MEDS: FUROSEMIDE 40 MG/4 ML VIAL. IVP SCH (18:00)
[2018-06-25 19:38] VITALS: BP 141/62
[2018-06-25] MEDS: ATORVASTATIN CALCIUM 40 MG TABLET. PO SCH (21:18)
[2018-06-25] MEDS: DONEPEZIL HCL 10 MG TABLET. PO SCH (21:18)
[2018-06-25] MEDS: OXYBUTYNIN CHLORIDE 5 MG TABLET PO SCH (21:18)
--- NOTE | 2018-06-25 21:29 | CONS ---
DATE OF CONSULTATION: 06/25/2018 ATTENDING PHYSICIAN: Dr. Jerry. REASON FOR CONSULTATION: The patient is seen in Pulmonary consultation at the request of Dr. Jerry for acute respiratory failure, requiring noninvasive ventilation. HISTORY OF PRESENT ILLNESS: The patient is a 73-year-old -[place] female who was at [facility] at [place]. She became more short of breath. They noticed O2 saturation was low. She was transferred to the Emergency Department. Initial arterial blood gas revealed a pH of 7.26, paCO2 of 64 and pO2 of 63. She is currently on BiPAP at 18/6 with a rate of 20% to 35% FiO2. She is awake, alert and following commands. I removed the BiPAP. She states that she has been more short of breath, but she does not have a productive cough. No fever or chills. No nausea, vomiting or diarrhea. I reviewed her x-ray, which revealed bilateral pulmonary infiltrates, compatible with acute CHF. Her medication list from out of the hospital was reviewed. According to the medication list, she is on Lasix at 40 mg daily. I specifically asked the patient if she is monitoring her salt intake. She states that she is, as a consequence of [facility]. PAST MEDICAL HISTORY: 1. Obstructive sleep apnea, normally uses CPAP. Apparently, the CPAP machine is nonfunctional. 2. Diabetes. 3. Morbid obesity. 4. Hypertension. 5. Generalized weakness. PAST SURGICAL HISTORY: Status post previous aortofemoral popliteal bypass. REVIEW OF SYSTEMS: CONSTITUTIONAL: No fever or chills. EYES: No change in visual acuity. HENT: No nasal congestion or sore throat. PULMONARY: As indicated above. CARDIOVASCULAR: No chest pain or pressure. GASTROINTESTINAL: No nausea, vomiting or diarrhea. GENITOURINARY: No dysuria or frequency. MUSCULOSKELETAL: No localized muscle aches or joint pains. SKIN: No new skin rashes. NEUROLOGIC: No headaches, diplopia or blurred vision. MEDICATIONS: Current medication list was reviewed. ALLERGIES: No known drug allergies. PHYSICAL EXAMINATION: GENERAL: On examination, she is currently on BiPAP, as indicated above. O2 saturation was greater than 92%. HEENT: Eyes, the sclerae were nonicteric. NECK: Jugular venous distention was not elevated. No lymphadenopathy. CHEST: Full expansion. LUNGS: Anteriorly were clear. No wheezes. CARDIOVASCULAR EXAMINATION: Regular rate and rhythm with S1, S2. No S3. ABDOMEN: Soft, nontender and nondistended. EXTREMITIES: No clubbing, cyanosis or edema. NEUROLOGIC: The patient was awake, alert and following commands. A detailed neuro exam was not performed. LABORATORY DATA: As indicated above. White count was noted. Electrolytes were noted. BUN and creatinine were noted. BNP was elevated. Albumin was low. Chest x-ray, as indicated above. IMPRESSION: 1. Acute hypercapnic hypoxemic respiratory failure. 2. Qkall-md-dyxktqu diastolic, suspect systolic heart failure. 3. Morbid obesity. 4. Obstructive sleep apnea. 5. Abnormal x-ray, compatible with congestive heart failure. 6. Generalized weakness. 7. Suspect pulmonary hypertension. PLAN: 1. Recommend to diurese. 2. No need for antibiotics. 3. BiPAP. 4. PT, OT evaluation and treat. 5. Follow labs. 6. Follow Cardiology input. The above was discussed with multiple family members at the bedside, including her primary caregiver. Total cumulative critical care time of 40 minutes. ALLEN CHEEK MD DR: ANN MARIE/shane JOB#: [id number] / [id number]
[2018-06-25] MEDS: INSULIN GLARGINE 300 UNITS/3 ML INSULN.PEN. SQ SCH (21:35)
[2018-06-25 23:10] VITALS: BP 130/52
[2018-06-26 03:33] VITALS: BP 142/58
[2018-06-26] MEDS: FUROSEMIDE 40 MG/4 ML VIAL. IVP SCH (06:08)
[2018-06-26] MEDS: HEPARIN for SUB-Q USE 5,000 UNIT/ML VIAL. SQ SCH ×3 (06:09→22:20)
[2018-06-26 07:00] VITALS: BP 142/62
[2018-06-26] MEDS: INSULIN LISPRO 300 UNITS/3 ML INSULN.PEN. SQ SCH ×3 (08:00→17:00)
--- NOTE | 2018-06-26 08:56 | PDOC ---
PULMONARY PROGRESS NOTES Subjective PT BETTER LESS SOA MORE AWAKE Vitals Vital Signs Date Time Temp Pulse Resp B/P (MAP) Pulse Ox O2 Delivery O2 Flow Rate FiO2 06/26/18 07:00 98.4 65 22 142/62 (88) 98 BiPAP/CPAP 98.4 06/25/18 20:03 2.0 ROS: No Nausea, No Chest Pain, No Abdominal Pain, No Increase Cough General: Alert, No acute distress Lungs: Clear Cardiovascular: S1, S2 Abdomen: Soft, Non-tender Neuro Exam: Alert Extremities: No Edema, Other Skin: Warm Labs Laboratory Tests Test 06/25/18 05:46 06/25/18 06:17 06/25/18 06:27 06/25/18 11:15 White Blood Count 9.9 x10^3/uL (4.0-11.0) Red Blood Count 3.35 x10^6/uL (3.50-5.40) Hemoglobin 10.2 g/dL (12.0-15.5) Hematocrit 32.2 % (36.0-47.0) Mean Corpuscular Volume 96 fL (79-100) Mean Corpuscular Hemoglobin 31 pg (25-35) Mean Corpuscular Hemoglobin Concent 32 g/dL (31-37) Red Cell Distribution Width 14.8 % (11.5-14.5) Platelet Count 228 x10^3/uL (140-400) Neutrophils (%) (Auto) 75 % (31-73) Lymphocytes (%) (Auto) 15 % (24-48) Monocytes (%) (Auto) 8 % (0-9) Eosinophils (%) (Auto) 1 % (0-3) Basophils (%) (Auto) 0 % (0-3) Neutrophils # (Auto) 7.4 x10^3uL (1.8-7.7) Lymphocytes # (Auto) 1.5 x10^3/uL (1.0-4.8) Monocytes # (Auto) 0.8 x10^3/uL (0.0-1.1) Eosinophils # (Auto) 0.1 x10^3/uL (0.0-0.7) Basophils # (Auto) 0.0 x10^3/uL (0.0-0.2) Prothrombin Time 14.9 SEC (11.7-14.0) Prothromb Time International Ratio 1.2 (0.8-1.1) Activated Partial Thromboplast Time 33 SEC (24-38) Sodium Level 144 mmol/L (136-145) Potassium Level 4.1 mmol/L (3.5-5.1) Chloride Level 105 mmol/L (98-107) Carbon Dioxide Level 35 mmol/L (21-32) Anion Gap 4 (6-14) Blood Urea Nitrogen 23 mg/dL (7-20) Creatinine 1.2 mg/dL (0.6-1.0) Estimated GFR (Cockcroft-Gault) 53.1 BUN/Creatinine Ratio 19 (6-20) Glucose Level 156 mg/dL (70-99) Calcium Level 9.4 mg/dL (8.5-10.1) Total Bilirubin 0.5 mg/dL (0.2-1.0) Aspartate Amino Transf (AST/SGOT) 18 U/L (15-37) Alanine Aminotransferase (ALT/SGPT) 20 U/L (14-59) Alkaline Phosphatase 108 U/L (46-116) Troponin I Quantitative 0.029 ng/mL (0.000-0.055) 0.030 ng/mL (0.000-0.055) XK-Pvs-Y-Type Natriuretic Peptide 578 pg/mL (0-124) Total Protein 7.0 g/dL (6.4-8.2) Albumin 3.1 g/dL (3.4-5.0) Albumin/Globulin Ratio 0.8 (1.0-1.7) O2 Saturation 89 % (92-99) Arterial Blood pH 7.26 (7.35-7.45) Arterial Blood pCO2 at Patient Temp 64 mmHg (35-46) Arterial Blood pO2 at Patient Temp 63 mmHg (65-108) Arterial Blood HCO3 28 mmol/L (21-28) Arterial Blood Base Excess 0 mmol/L (-3-3) FiO2 32 Test 06/25/18 13:11 06/25/18 17:00 06/25/18 17:17 06/25/18 21:20 Glucose (Fingerstick) 136 mg/dL (70-99) 190 mg/dL (70-99) 176 mg/dL (70-99) O2 Saturation 91 % (92-99) Arterial Blood pH 7.37 (7.35-7.45) Arterial Blood pCO2 at Patient Temp 57 mmHg (35-46) Arterial Blood pO2 at Patient Temp 63 mmHg (65-108) Arterial Blood HCO3 32 mmol/L (21-28) Arterial Blood Base Excess 6 mmol/L (-3-3) FiO2 28 Test 06/26/18 07:37 Glucose (Fingerstick) 122 mg/dL (70-99) Laboratory Tests Test 06/25/18 11:15 06/25/18 13:11 06/25/18 17:00 06/25/18 17:17 Troponin I Quantitative 0.030 ng/mL (0.000-0.055) Glucose (Fingerstick) 136 mg/dL (70-99) 190 mg/dL (70-99) O2 Saturation 91 % (92-99) Arterial Blood pH 7.37 (7.35-7.45) Arterial Blood pCO2 at Patient Temp 57 mmHg (35-46) Arterial Blood pO2 at Patient Temp 63 mmHg (65-108) Arterial Blood HCO3 32 mmol/L (21-28) Arterial Blood Base Excess 6 mmol/L (-3-3) FiO2 28 Test 06/25/18 21:20 06/26/18 07:37 Glucose (Fingerstick) 176 mg/dL (70-99) 122 mg/dL (70-99) Medications Active Scripts Medications Dose Route/Sig Max Daily Dose Days Date Category Heparin 1,000 Unit/10 (100/ml) (Heparin Sodium,Porcine/Pf) 1,000 Unit/10 Ml Syringe 5,000 Unit SQ TID 06/25/18 Reported Gabapentin (Gabapentin) 100 Mg Capsule 100 Mg PO BID 06/25/18 Reported Metolazone 2.5 Mg Tablet 2.5 Mg PO DAILY 06/25/18 Reported Lasix (Furosemide) 40 Mg Tablet 40 Mg PO DAILY 06/25/18 Reported Hydrocodone-Apap 5-325 (Hydrocodone Bit/Acetaminophen) 1 Each Tablet 1 Tab PO PRN Q4HRS PRN 7 06/18/18 Rx Oxybutynin Chloride 5 Mg Tablet 10 Mg PO HS 06/12/18 Reported Levemir Flextouch (Insulin Detemir) 100 Unit/1 Ml Insuln.pen 40 Unit SQ HS 06/12/18 Reported Pioglitazone Hcl 30 Mg Tablet 30 Mg PO DAILY 06/12/18 Reported Zoloft (Sertraline Hcl) 50 Mg Tablet 1 Tab PO DAILY 06/12/18 Reported Carvedilol (Carvedilol) 12.5 Mg Tablet 12.5 Mg PO BIDWMEALS 07/21/16 Reported Atorvastatin Calcium 40 Mg Tablet 40 Mg PO HS 07/21/16 Reported Novolog Flexpen (Insulin Aspart) 100 Unit/1 Ml Insuln.pen 0 Units SQ TIDWMEALS 30 03/17/16 Rx Aspirin Ec (Aspirin) 81 Mg Tablet.dr 81 Mg PO 03/14/16 Reported Amlodipine Besylate 10 Mg Tablet 10 Mg PO DAILY 03/14/16 Reported Donepezil Hcl 10 Mg Tablet 10 Mg PO HS 03/14/16 Reported Losartan Potassium 100 Mg Tablet 100 Mg PO DAILY 07/24/13 Reported Impression . IMPRESSION: 1. Acute hypercapnic hypoxemic respiratory failure. 2. Xnyek-gf-pevnqic diastolic, suspect systolic heart failure. 3. Morbid obesity. 4. Obstructive sleep apnea. 5. Abnormal x-ray, compatible with congestive heart failure. 6. Generalized weakness. 7. Suspect pulmonary hypertension. 8. GENERALIZED WEAKNESS Plan . ABG NOTED REPEAT SPOKE WITH RT [facility] BIPAP CONSULT DR PAGE PEPE UP TO CHAIR PT/OT ALLEN CHEEK MD Jun 26, 2018 08:56
[2018-06-26] MEDS: ASPIRIN ENTERIC COATED 81 MG TABLET.DR. PO SCH (08:58)
[2018-06-26] MEDS: metOLazone 2.5 MG TABLET PO SCH (08:58)
[2018-06-26] MEDS: GABAPENTIN 100 MG CAPSULE. PO SCH ×2 (08:58→22:18)
[2018-06-26] MEDS: PIOGLITAZONE 15 MG TABLET. PO SCH (08:59)
[2018-06-26] MEDS: ISOSORBIDE MONONITRATE ER 30 MG TAB.ER.24H PO SCH (08:59)
[2018-06-26] MEDS: SERTRALINE 50 MG TABLET. PO SCH (08:59)
[2018-06-26] MEDS: CARVEDILOL 12.5 MG TABLET. PO SCH ×2 (08:59→18:18)
[2018-06-26] MEDS: amLODIPine BESYLATE 10 MG TABLET PO SCH (08:59)
[2018-06-26] MEDS: LOSARTAN POTASSIUM 50 MG TABLET. PO SCH (09:00)
[2018-06-26] MEDS: IPRATRPIUM/ALBUTEROL 0.5/2.5MG 3 ML NEBU. NEB SCH ×4 (09:43→19:55)
--- NOTE | 2018-06-26 10:01 | NUR ---
SS following for discharge planning. SS received notification that pt was from [facility], ; fax [phone]. SS contacted [facility] and verified that pt is a [facility] and [facility] pt from there facility and was able to return when medically stable for discharge pending authorization from [place]. PT/OT ordered. SS will await PT/OT evaluations and will submit referral.
[2018-06-26 10:30] LABS: BASE EXCESS ABG 8 mmol/L (-3-3); HCO3 ABG 35 mmol/L (21-28); PCO2 ABG 58 mmHg (35-46); PO2 ABG 63 mmHg (65-108); SAT O2 ABG 92 % (92-99)
[2018-06-26 10:35] LABS: FIO2 ABG 28
[2018-06-26 11:00] VITALS: BP 159/66
--- NOTE | 2018-06-26 11:30 | RAD ---
Portable chest, 06/26/2018: HISTORY: Congestive heart failure Comparison is made to yesterday's study. The heart is enlarged. There are ongoing pulmonary infiltrates with obscuration of left hemidiaphragm. There is probably pleural fluid contributing to the basilar opacities. Similar findings were present on yesterday's study. No new abnormality is detected. IMPRESSION: Ongoing congestive heart failure, similar to that seen on yesterday's exam. Electronically signed by: Mason Lebron MD (06/26/2018 11:27 AM) [facility]
--- NOTE | 2018-06-26 13:58 | PDOC ---
PROGRESS NOTES Chief Complaint Chief Complaint Shortness of Breath during Rehab History of Present Illness History of Present Illness Pt seen and examined in her room. She was sitting upright in the chair. Alert, oriented, and cooperative. Tolerating oral intake well. Denies chest pain, shortness of breath. Musa to BSD. Reviewed labs. Currently on IV diuresis. Cardiology and Pulmonology are following. Vitals Vitals Vital Signs Date Time Temp Pulse Resp B/P (MAP) Pulse Ox O2 Delivery O2 Flow Rate FiO2 06/26/18 11:57 99 Nasal Cannula 2.0 06/26/18 11:00 98.6 76 22 159/66 (97) 98.6 Physical Exam General: Cooperative, No acute distress, Other (drowsy) Heart: Regular rate (SR), Other (distant heart sounds) Lungs: Clear Abdomen: Soft, No tenderness, Other (obese, normoactive bowel sounds, nontender ) Extremities: No cyanosis, Other (3+ bilateral LE pitting edema) Skin: No breakdown, No significant lesion Labs LABS Laboratory Tests Test 06/25/18 17:00 06/25/18 17:17 06/25/18 21:20 06/26/18 07:37 O2 Saturation 91 % (92-99) Arterial Blood pH 7.37 (7.35-7.45) Arterial Blood pCO2 at Patient Temp 57 mmHg (35-46) Arterial Blood pO2 at Patient Temp 63 mmHg (65-108) Arterial Blood HCO3 32 mmol/L (21-28) Arterial Blood Base Excess 6 mmol/L (-3-3) FiO2 28 Glucose (Fingerstick) 190 mg/dL (70-99) 176 mg/dL (70-99) 122 mg/dL (70-99) Test 06/26/18 10:13 06/26/18 11:02 O2 Saturation 92 % (92-99) Arterial Blood pH 7.39 (7.35-7.45) Arterial Blood pCO2 at Patient Temp 58 mmHg (35-46) Arterial Blood pO2 at Patient Temp 63 mmHg (65-108) Arterial Blood HCO3 35 mmol/L (21-28) Arterial Blood Base Excess 8 mmol/L (-3-3) FiO2 28 Glucose (Fingerstick) 92 mg/dL (70-99) Review of Systems Review of Systems GENERAL: no fever, fatigue, or chills. CARDIAC: no murmur, arrhythmia, palpitations, or chest pain. RESPIRATORY: no shortness of breath, wheezing, or rhonchi/rales/crackles. EXTREMITIES: no edema Assessment and Plan Assessmemt and Plan Assessment 1. Hypertensive Emergency 2. Congestive Heart Failure, Preserved EF (56% - last echo). 3. Acute Respiratory Failure 4. Elevated BNP 5. T2DM - on insulin. 6. Obesity (BMI 46.1) 7. ALEXYS - on CPAP. 8. CKD, stage 3. 9. Dyslipidemia. 10. PVD s/p right popliteral to peroneal artery bypass. Plan 1. IV Lasix 2. cardiac monitoring 3. serial enzymes 4. cardiology following 5. antihypertensive therapy 6. O2, BiPaP as needed 7. PT/OT 8. monitor labs 9. home meds Comment Review of Relevant I have reviewed the following items joel (where applicable) has been applied. Labs Laboratory Tests Test 06/25/18 05:46 06/25/18 06:17 06/25/18 06:27 06/25/18 11:15 White Blood Count 9.9 x10^3/uL (4.0-11.0) Red Blood Count 3.35 x10^6/uL (3.50-5.40) Hemoglobin 10.2 g/dL (12.0-15.5) Hematocrit 32.2 % (36.0-47.0) Mean Corpuscular Volume 96 fL (79-100) Mean Corpuscular Hemoglobin 31 pg (25-35) Mean Corpuscular Hemoglobin Concent 32 g/dL (31-37) Red Cell Distribution Width 14.8 % (11.5-14.5) Platelet Count 228 x10^3/uL (140-400) Neutrophils (%) (Auto) 75 % (31-73) Lymphocytes (%) (Auto) 15 % (24-48) Monocytes (%) (Auto) 8 % (0-9) Eosinophils (%) (Auto) 1 % (0-3) Basophils (%) (Auto) 0 % (0-3) Neutrophils # (Auto) 7.4 x10^3uL (1.8-7.7) Lymphocytes # (Auto) 1.5 x10^3/uL (1.0-4.8) Monocytes # (Auto) 0.8 x10^3/uL (0.0-1.1) Eosinophils # (Auto) 0.1 x10^3/uL (0.0-0.7) Basophils # (Auto) 0.0 x10^3/uL (0.0-0.2) Prothrombin Time 14.9 SEC (11.7-14.0) Prothromb Time International Ratio 1.2 (0.8-1.1) Activated Partial Thromboplast Time 33 SEC (24-38) Sodium Level 144 mmol/L (136-145) Potassium Level 4.1 mmol/L (3.5-5.1) Chloride Level 105 mmol/L (98-107) Carbon Dioxide Level 35 mmol/L (21-32) Anion Gap 4 (6-14) Blood Urea Nitrogen 23 mg/dL (7-20) Creatinine 1.2 mg/dL (0.6-1.0) Estimated GFR (Cockcroft-Gault) 53.1 BUN/Creatinine Ratio 19 (6-20) Glucose Level 156 mg/dL (70-99) Calcium Level 9.4 mg/dL (8.5-10.1) Total Bilirubin 0.5 mg/dL (0.2-1.0) Aspartate Amino Transf (AST/SGOT) 18 U/L (15-37) Alanine Aminotransferase (ALT/SGPT) 20 U/L (14-59) Alkaline Phosphatase 108 U/L (46-116) Troponin I Quantitative 0.029 ng/mL (0.000-0.055) 0.030 ng/mL (0.000-0.055) IW-Wmi-B-Type Natriuretic Peptide 578 pg/mL (0-124) Total Protein 7.0 g/dL (6.4-8.2) Albumin 3.1 g/dL (3.4-5.0) Albumin/Globulin Ratio 0.8 (1.0-1.7) O2 Saturation 89 % (92-99) Arterial Blood pH 7.26 (7.35-7.45) Arterial Blood pCO2 at Patient Temp 64 mmHg (35-46) Arterial Blood pO2 at Patient Temp 63 mmHg (65-108) Arterial Blood HCO3 28 mmol/L (21-28) Arterial Blood Base Excess 0 mmol/L (-3-3) FiO2 32 Test 06/25/18 13:11 06/25/18 17:00 2/12/19 17:17 06/25/18 21:20 Glucose (Fingerstick) 136 mg/dL (70-99) 190 mg/dL (70-99) 176 mg/dL (70-99) O2 Saturation 91 % (92-99) Arterial Blood pH 7.37 (7.35-7.45) Arterial Blood pCO2 at Patient Temp 57 mmHg (35-46) Arterial Blood pO2 at Patient Temp 63 mmHg (65-108) Arterial Blood HCO3 32 mmol/L (21-28) Arterial Blood Base Excess 6 mmol/L (-3-3) FiO2 28 Test 06/26/18 07:37 06/26/18 10:13 06/26/18 11:02 Glucose (Fingerstick) 122 mg/dL (70-99) 92 mg/dL (70-99) O2 Saturation 92 % (92-99) Arterial Blood pH 7.39 (7.35-7.45) Arterial Blood pCO2 at Patient Temp 58 mmHg (35-46) Arterial Blood pO2 at Patient Temp 63 mmHg (65-108) Arterial Blood HCO3 35 mmol/L (21-28) Arterial Blood Base Excess 8 mmol/L (-3-3) FiO2 28 Laboratory Tests Test 06/25/18 17:00 06/25/18 17:17 06/25/18 21:20 06/26/18 07:37 O2 Saturation 91 % (92-99) Arterial Blood pH 7.37 (7.35-7.45) Arterial Blood pCO2 at Patient Temp 57 mmHg (35-46) Arterial Blood pO2 at Patient Temp 63 mmHg (65-108) Arterial Blood HCO3 32 mmol/L (21-28) Arterial Blood Base Excess 6 mmol/L (-3-3) FiO2 28 Glucose (Fingerstick) 190 mg/dL (70-99) 176 mg/dL (70-99) 122 mg/dL (70-99) Test 06/26/18 10:13 06/26/18 11:02 O2 Saturation 92 % (92-99) Arterial Blood pH 7.39 (7.35-7.45) Arterial Blood pCO2 at Patient Temp 58 mmHg (35-46) Arterial Blood pO2 at Patient Temp 63 mmHg (65-108) Arterial Blood HCO3 35 mmol/L (21-28) Arterial Blood Base Excess 8 mmol/L (-3-3) FiO2 28 Glucose (Fingerstick) 92 mg/dL (70-99) Medications Current Medications Albuterol/ Ipratropium (Duoneb) 3 ml 1X ONCE NEB Last administered on at 05:57; Start 06/25/18 at 06:00; Stop 06/25/18 at 06:01; Status DC Carvedilol (Coreg) 12.5 mg 1X ONCE PO Last administered on 06/25/18at 06:25; Start 06/25/18 at 06:15; Stop 06/25/18 at 06:16; Status DC Amlodipine Besylate (Norvasc) 10 mg 1X ONCE PO Last administered on 06/25/18at 06:25; Start 06/25/18 at 06:15; Stop 06/25/18 at 06:16; Status DC Losartan Potassium (Cozaar) 100 mg 1X ONCE PO Last administered on 06/25/18at 06:25; Start 06/25/18 at 06:15; Stop 06/25/18 at 06:16; Status DC Furosemide (Lasix) 40 mg 1X ONCE IVP Last administered on 06/25/18at 06:15; Start 06/25/18 at 06:15; Stop 06/25/18 at 06:16; Status DC Furosemide (Lasix) 40 mg STK-MED ONCE .ROUTE ; Start 06/25/18 at 06:14; Stop 05/01 at 06:15; Status DC Hydralazine HCl (Apresoline Inj) 10 mg 1X ONCE IVP Last administered on at 07:46; Start 06/25/18 at 07:15; Stop 06/25/18 at 07:16; Status DC Hydralazine HCl (Apresoline Inj) 20 mg 1X ONCE IVP Last administered on at 08:16; Start 06/25/18 at 08:15; Stop 06/25/18 at 08:16; Status DC Albuterol/ Ipratropium (Duoneb) 3 ml RTQID NEB Last administered on 06/26/18at 11:55; Start 06/25/18 at 12:00 Amlodipine Besylate (Norvasc) 10 mg DAILY PO Last administered on 06/26/18at 08: 59; Start 06/25/18 at 10:00 Aspirin (Ecotrin) 81 mg DAILY PO Last administered on 06/26/18 08:58; Start at 10:00 Atorvastatin Calcium (Lipitor) 40 mg HS PO Last administered on 06/25/18 21:18 ; Start 06/25/18 at 21:00 Carvedilol (Coreg) 12.5 mg BIDWMEALS PO Last administered on 06/26/18 08:59; Start 06/25/18 at 10:00 Gabapentin (Neurontin) 100 mg BID PO Last administered on 06/26/18 08:58; Start 06/25/18 at 10:00 Acetaminophen/ Hydrocodone Bitart (Lortab 5/325) 1 tab PRN Q4HRS PRN PO SEVERE PAIN; Start 06/25/18 at 09:30 Oxybutynin Chloride (Ditropan) 10 mg HS PO Last administered on 06/25/18 21:18 ; Start 06/25/18 at 21:00 Sertraline HCl (Zoloft) 50 mg DAILY PO Last administered on 06/26/18 08:59; Start 06/25/18 at 10:00 Donepezil HCl (Aricept) 10 mg QHS PO Last administered on 06/25/18 21:18; Start 06/25/18 at 21:00 Heparin Sodium (Porcine) (Heparin Sodium) 5,000 unit Q8HRS SQ Last administered on 06/26/18 06:09; Start 06/25/18 at 14:00 Non-Formulary Medication (Insulin Aspart (Novolog Flexpen)) TIDWMEALS SQ ; Start 06/25/18 at 12:00; Status UNV Insulin Glargine (Lantus) 40 units QHS SQ Last administered on 06/25/18 21:35 ; Start 06/25/18 at 21:00 Losartan Potassium (Cozaar) 100 mg DAILY PO Last administered on 06/26/18 09: 00; Start 06/25/18 at 10:00 Metolazone (Zaroxolyn) 2.5 mg DAILY PO Last administered on 06/26/18 08:58; Start 06/25/18 at 10:00 Pioglitazone HCl (Actos) 15 mg DAILY PO Last administered on 2/13/19at 08:59; Start 06/25/18 at 10:00 Furosemide (Lasix) 40 mg DAILY IVP Last administered on 06/25/18at 12:54; Start 06/25/18 at 10:00; Stop 06/25/18 at 14:00; Status DC Insulin Human Lispro (HumaLOG) 0-9 UNITS TIDWMEALS SQ Last administered on 06/25at 17:42; Start 06/25/18 at 12:00 Dextrose (Dextrose 50%-Water Syringe) 12.5 gm PRN Q15MIN PRN IV SEE COMMENTS; Start 06/25/18 at 09:30 Acetaminophen (Tylenol) 500 mg PRN Q6HRS PRN PO MILD PAIN / TEMP Last administered on 06/25/18at 12:56; Start 06/25/18 at 09:30 Acetaminophen/ Codeine Phosphate (Tylenol #3) 1 tab PRN Q6HRS PRN PO MODERATE PAIN; Start 06/25/18 at 09:30 Furosemide (Lasix) 40 mg [id number] IVP Last administered on 06/26/18at 06:08; Start 06/25/18 at 18:00 Hydralazine HCl (Apresoline) 50 mg BID PO Last administered on 06/26/18at 08:58 ; Start 06/25/18 at 14:00 Hydralazine HCl (Apresoline Inj) 10 mg PRN Q4HRS PRN IVP ELEVATED BP, SEE COMMENTS; Start 06/25/18 at 14:00 Isosorbide Mononitrate (Imdur) 30 mg DAILY PO Last administered on 06/26/18at 08 :59; Start 06/26/18 at 09:00 Active Scripts Active Hydrocodone-Apap 5-325 (Hydrocodone Bit/Acetaminophen) 1 Each Tablet 1 Tab PO PRN Q4HRS PRN 7 Days Novolog Flexpen (Insulin Aspart) 100 Unit/1 Ml Insuln.pen 0 Units SQ TIDWMEALS 30 Days Reported Heparin 1,000 Unit/10 (100/ml) (Heparin Sodium,Porcine/Pf) 1,000 Unit/10 Ml Syringe 5,000 Unit SQ TID Gabapentin (Gabapentin) 100 Mg Capsule 100 Mg PO BID Metolazone 2.5 Mg Tablet 2.5 Mg PO DAILY Lasix (Furosemide) 40 Mg Tablet 40 Mg PO DAILY Oxybutynin Chloride 5 Mg Tablet 10 Mg PO HS Levemir Flextouch (Insulin Detemir) 100 Unit/1 Ml Insuln.pen 40 Unit SQ HS Pioglitazone Hcl 30 Mg Tablet 30 Mg PO DAILY Zoloft (Sertraline Hcl) 50 Mg Tablet 1 Tab PO DAILY Carvedilol (Carvedilol) 12.5 Mg Tablet 12.5 Mg PO BIDWMEALS Atorvastatin Calcium 40 Mg Tablet 40 Mg PO HS Aspirin Ec (Aspirin) 81 Mg Tablet.dr 81 Mg PO Amlodipine Besylate 10 Mg Tablet 10 Mg PO DAILY Donepezil Hcl 10 Mg Tablet 10 Mg PO HS Losartan Potassium 100 Mg Tablet 100 Mg PO DAILY Vitals/I & O Vital Sign - Last 24 Hours 06/25/18 06/25/18 06/25/18 06/25/18 14:00 14:31 15:00 16:00 Temp 97.8 97.8 Pulse 66 84 Resp 27 B/P (MAP) 172/72 (105) 183/75 186/78 (114) 175/92 (119) Pulse Ox 96 O2 Delivery BiPAP/CPAP 06/25/18 06/25/18 06/25/18 06/25/18 16:16 17:41 19:38 20:00 Temp 98.4 98.4 Pulse 82 73 Resp 16 B/P (MAP) 175/92 141/62 (88) Pulse Ox 97 O2 Delivery Nasal Cannula Nasal Cannula Bi-pap O2 Flow Rate 2.0 2.0 06/25/18 06/25/18 06/25/18 06/25/18 20:03 21:17 23:10 23:26 Temp 98.3 98.3 Pulse 73 74 Resp 24 B/P (MAP) 141/62 130/52 (78) Pulse Ox 98 99 96 O2 Delivery Nasal Cannula BiPAP/CPAP BiPAP/CPAP O2 Flow Rate 2.0 06/26/18 06/26/18 06/26/18 06/26/18 01:31 03:33 03:49 07:00 Temp 98.3 98.4 98.3 98.4 Pulse 63 65 Resp 22 22 B/P (MAP) 142/58 (86) 142/62 (88) Pulse Ox 99 97 99 98 O2 Delivery BiPAP/CPAP BiPAP/CPAP BiPAP/CPAP BiPAP/CPAP 2/13/06/26/18 06/26/18 06/26/18 07:35 08:58 08:59 08:59 Pulse 68 80 80 O2 Delivery Bi-pap 06/26/18 06/26/18 06/26/18 06/26/18 08:59 09:00 09:05 11:00 Temp 98.6 98.6 Pulse 80 80 76 Resp 22 B/P (MAP) 159/66 (97) Pulse Ox 98 97 O2 Delivery Nasal Cannula Nasal Cannula O2 Flow Rate 2.0 2.0 06/26/18 11:57 Pulse Ox 99 O2 Delivery Nasal Cannula O2 Flow Rate 2.0 Intake and Output 06/25/18 06/25/18 06/26/18 14:59 22:59 06:59 Intake Total 100 ml Output Total 350 ml 450 ml 500 ml Balance -350 ml -450 ml -400 ml MARIFER BOLAÑOS III DO Jun 26, 2018 13:58
[2018-06-26 15:00] VITALS: BP 146/59
--- NOTE | 2018-06-26 15:30 | PDOC ---
JACY SYED SWATCH MAKER 06/26/18 1530: CARDIO Progress Notes Date and Time Date of Service 06/26/2018 Time of Evaluation 1500 Subjective Subjective: No Chest Pain, No shortness of breath, No Palpitations, Other ( sitting up feels better) Vitals Vitals Vital Signs Date Time Temp Pulse Resp B/P (MAP) Pulse Ox O2 Delivery O2 Flow Rate FiO2 06/26/18 11:57 99 Nasal Cannula 2.0 06/26/18 11:00 98.6 76 22 159/66 (97) 98.6 Weight Weight [ ] Input and Output Intake and Output Intake and Output 06/26/18 07:00 Intake Total 100 ml Output Total 1300 ml Balance -1200 ml Intake Oral 100 ml Output Urine Total 1300 ml # Voids 3 Laboratory Labs Laboratory Tests Test 06/25/18 17:00 06/25/18 17:17 06/25/18 21:20 06/26/18 07:37 O2 Saturation 91 % (92-99) Arterial Blood pH 7.37 (7.35-7.45) Arterial Blood pCO2 at Patient Temp 57 mmHg (35-46) Arterial Blood pO2 at Patient Temp 63 mmHg (65-108) Arterial Blood HCO3 32 mmol/L (21-28) Arterial Blood Base Excess 6 mmol/L (-3-3) FiO2 28 Glucose (Fingerstick) 190 mg/dL (70-99) 176 mg/dL (70-99) 122 mg/dL (70-99) Test 06/26/18 10:13 06/26/18 11:02 O2 Saturation 92 % (92-99) Arterial Blood pH 7.39 (7.35-7.45) Arterial Blood pCO2 at Patient Temp 58 mmHg (35-46) Arterial Blood pO2 at Patient Temp 63 mmHg (65-108) Arterial Blood HCO3 35 mmol/L (21-28) Arterial Blood Base Excess 8 mmol/L (-3-3) FiO2 28 Glucose (Fingerstick) 92 mg/dL (70-99) Physical Exam HEENT: Neck Supple W Full Motion Chest: Symmetric LUNGS: Other (faint basilar wheeze, diminished) Heart: S1S2, RRR (SR) Abdomen: Soft N/T, Other (obese) Extremities: Other (2-3+ bilateral LE pitting edema) Neurology: alert, oriented, follow commands Assessment Assessment 1. Acute on chronic hypoxic respiratory failure/pleural effusion: +ALEXYS and CHF 2. Acute on chronic diastolic CHF: recent EF at 55%, multifactorial. Much better today. 3. Malignant hypertension; much better. 4. DM2/HLP 5. CKD3 6. ALEXYS/pulmonary HTN: CPAP was broken and has been fixed per sister. 7. PVD s/p right popliteal to peroneal artery bypass. 8. Dementia Recommendations 1. Continue with lasix therapy. Good UOP. BMP and Mg now. Anticipate Dc tomorrow to SNU in 1-2 days 2. Continue BP regimen. Optimize. Continue with hydralazine/imdur 3. Continue Bipap/CPAP hs 4. Continue with secondary prevention MILTON CASTANEDA MD 06/26/18 1737: CARDIO Progress Notes Assessment Assessment Patient seen and examined. Agree with FLOOR COVERINGS INSTALLER's assessment and plan. Acute on chronic diastolic heart failure better compensated BUN/creatinine elevated. Change Lasix to by mouth. Replace magnesium. Blood pressure much better controlled since admission. Continue current medical regimen. JACY SYED APRN Jun 26, 2018 15:30 MILTON CASTANEDA MD Jun 26, 2018 17:37
[2018-06-26 16:35] LABS: CALCIUM 9.3 mg/dL (8.5-10.1); CREATININE 1.8 mg/dL (0.6-1.0); GFR 33.3; MAGNESIUM 1.7 mg/dL (1.8-2.4); POTASSIUM 3.6 mmol/L (3.5-5.1)
[2018-06-26] MEDS ORDERED: MAGNESIUM SULFATE 2GM 50 ML IV ONE (17:30)
[2018-06-26 19:35] VITALS: BP 130/47
[2018-06-26] MEDS: DICLOFENAC SODIUM 1% TOPICAL GEL 100GM TUBE. TP SCH (22:19)
[2018-06-26] MEDS: ATORVASTATIN CALCIUM 40 MG TABLET. PO SCH (22:19)
[2018-06-26] MEDS: OXYBUTYNIN CHLORIDE 5 MG TABLET PO SCH (22:19)
[2018-06-26] MEDS: DONEPEZIL HCL 10 MG TABLET. PO SCH (22:19)
[2018-06-26] MEDS: INSULIN GLARGINE 300 UNITS/3 ML INSULN.PEN. SQ SCH (22:20)
[2018-06-26 22:37] VITALS: BP 120/61
[2018-06-27 02:05] VITALS: BP 118/49
[2018-06-27 04:21] LABS: BASO % 0 % (0-3); EOS # 0.2 x10^3/uL (0.0-0.7); EOS % 3 % (0-3); HEMATOCRIT 27.8 % (36.0-47.0); HEMOGLOBIN 8.8 g/dL (12.0-15.5); LYMPH # 1.1 x10^3/uL (1.0-4.8); LYMPH % 18 % (24-48); MEAN CORPUSCULAR HEMOGLOBIN 30 pg (25-35); MEAN CORPUSCULAR HGB CONC 32 g/dL (31-37); MEAN CORPUSCULAR VOLUME 94 fL (79-100); MONO # 0.8 x10^3/uL (0.0-1.1); MONO % 13 % (0-9); NEUT # 3.9 x10^3uL (1.8-7.7); NEUT % 66 % (31-73); PLATELET COUNT 160 x10^3/uL (140-400); RED BLOOD COUNT 2.96 x10^6/uL (3.50-5.40); RED CELL DISTRIBUTION WIDTH 15.3 % (11.5-14.5)
[2018-06-27 04:42] LABS: ALBUMIN 2.5 g/dL (3.4-5.0); ALBUMIN/GLOBULIN RATIO 0.7 (1.0-1.7); CALCIUM 9.1 mg/dL (8.5-10.1); CREATININE 1.8 mg/dL (0.6-1.0); GFR 33.3; POTASSIUM 3.4 mmol/L (3.5-5.1); TOTAL BILIRUBIN 0.3 mg/dL (0.2-1.0); TOTAL PROTEIN 6.1 g/dL (6.4-8.2)
--- NOTE | 2018-06-27 06:06 | CONS ---
DATE OF CONSULTATION: LOCATION: She is in room 208. ATTENDING PHYSICIAN: Dr. Jerry. The patient was seen at the request of Dr. Samuels for rehab evaluation. HISTORY OF PRESENT ILLNESS: This is a 73-year-old right-handed female admitted about a week ago at this medical center for treatment of exacerbation of congestive heart failure, was discharged to [facility]. She also had obstructive sleep apnea, supposed to be on CPAP, but for some reason, she is not wearing CPAP or BiPAP while at long term care unit and admitted through the Emergency Room on 06/25/2018 with respiratory distress needing BiPAP. Off BiPAP, she would desaturate, tachypneic and in respiratory distress again. Arterial blood gases off BIPAP showed pH of 7.25 with high CO2. The patient was admitted for further evaluation and treatment. The patient was recently found with a cardiac ejection fraction of 56%. She was also found with chronic kidney disease stage 3, obesity with a BMI of 35, peripheral vascular disease, status post right lower extremity arterial bypass surgery in the past. The patient also admits some stiffness and pain in her knees, left side more than right side. PAST MEDICAL HISTORY: Also includes hypertension, hyperlipidemia, peripheral neuropathy, transient ischemic attack, anxiety, depression, osteoarthritis, previous urinary tract infection, diabetes mellitus, status post tonsillectomy and hysterectomy. ALLERGIES: Not known allergic to any medication. FAMILY HISTORY: Hypertension. The patient was also noted with elevated troponin at the time of admission. The patient since admission is being treated for congestive heart failure requiring IV Lasix several times a day. The patient admits to tiredness and weakness. She had some trouble with her stool incontinence and she had an indwelling Musa catheter in place right now. The patient prior to the present hospitalization has been getting around and uses a cane on an as needed basis and she had stairs 5 of them with railing to enter the house. There is a lift inside the house for stairs. She lives with her sister. PHYSICAL EXAMINATION: The patient on physical examination today revealed an elderly female. She is alert, oriented to time, place, person and circumstance and follows commands appropriately, moves all 4 extremities voluntarily where she had 4+/5 grade muscle strength. Deep tendon reflexes are decreased overall with absent ankle jerks. She had equal perception of touch and pinprick sensation bilaterally. She had a crepitus on range of motion of both knee joints. She had significant edema all over her body more so of her lower extremities. The patient is using oxygen by nasal cannula and she had an indwelling Musa catheter in place. She had pain free range of motion of both hip joints. She had equal perception of touch and pinprick sensation bilaterally. She requires maximum assistance in coming to a standing position from sitting position. Once up, she walks at bedside using a roller walker with wide-based gait, takes long time to advance her feet and she required help with transfers and bed mobility. ASSESSMENT: An elderly female with recent hospitalization for exacerbation of congestive heart failure with associated acute hypercapnic respiratory failure, Pickwickian syndrome, obstructive sleep apnea on CPAP, morbid obesity with a BMI of 35, chronic kidney disease stage 3, dyslipidemia, hypertension, diabetes mellitus with peripheral neuropathy, degenerative joint disease of both knees with pain left knee, peripheral vascular disease, status post right lower extremity vascular bypass surgery. RECOMMENDATIONS: Agree with the plan for physical therapy and occupational therapy. She needs to be considered for transfer to acute rehab unit or long-term acute care unit for continued care when medically stable before she can return home. Dr. Samuels appreciate asking me to participate in the care of this interesting patient. I will be glad to follow her with you as needed for her rehabilitation. REBA ABEL MD DR: MARK/shane JOB#: [id number] / [id number]
[2018-06-27] MEDS: HEPARIN for SUB-Q USE 5,000 UNIT/ML VIAL. SQ SCH ×3 (06:19→21:29)
[2018-06-27 07:00] VITALS: BP 170/67
[2018-06-27] MEDS: IPRATRPIUM/ALBUTEROL 0.5/2.5MG 3 ML NEBU. NEB SCH ×4 (07:42→20:18)
[2018-06-27] MEDS: INSULIN LISPRO 300 UNITS/3 ML INSULN.PEN. SQ SCH ×3 (08:00→17:00)
[2018-06-27] MEDS: ASPIRIN ENTERIC COATED 81 MG TABLET.DR. PO SCH (08:59)
[2018-06-27] MEDS: ISOSORBIDE MONONITRATE ER 30 MG TAB.ER.24H PO SCH (09:00)
[2018-06-27] MEDS: LOSARTAN POTASSIUM 50 MG TABLET. PO SCH (09:00)
[2018-06-27] MEDS: SERTRALINE 50 MG TABLET. PO SCH (09:00)
[2018-06-27] MEDS: CARVEDILOL 12.5 MG TABLET. PO SCH (09:00)
[2018-06-27] MEDS: PIOGLITAZONE 15 MG TABLET. PO SCH (09:00)
[2018-06-27] MEDS: metOLazone 2.5 MG TABLET PO SCH (09:00)
[2018-06-27] MEDS: amLODIPine BESYLATE 10 MG TABLET PO SCH (09:01)
[2018-06-27] MEDS: FUROSEMIDE 40 MG TABLET. PO SCH ×2 (09:01→14:16)
[2018-06-27] MEDS: DICLOFENAC SODIUM 1% TOPICAL GEL 100GM TUBE. TP SCH ×2 (09:01→21:22)
[2018-06-27] MEDS: GABAPENTIN 100 MG CAPSULE. PO SCH ×2 (09:01→21:21)
--- NOTE | 2018-06-27 09:19 | PDOC ---
PULMONARY PROGRESS NOTES Subjective patient with no increase in SOA Vitals Vital Signs Date Time Temp Pulse Resp B/P (MAP) Pulse Ox O2 Delivery O2 Flow Rate FiO2 06/27/18 09:01 75 06/27/18 08:00 Nasal Cannula 2.0 06/27/18 07:44 97 06/27/18 07:00 98.9 18 170/67 (101) 98.9 ROS: No Nausea, No Chest Pain, No Abdominal Pain, No Increase Cough General: Alert, No acute distress Lungs: Clear Cardiovascular: S1, S2 Abdomen: Soft, Non-tender Neuro Exam: Alert Extremities: No Edema, Other Skin: Warm Labs Laboratory Tests Test 06/25/18 11:15 06/25/18 13:11 06/25/18 17:00 06/25/18 17:17 Troponin I Quantitative 0.030 ng/mL (0.000-0.055) Glucose (Fingerstick) 136 mg/dL (70-99) 190 mg/dL (70-99) O2 Saturation 91 % (92-99) Arterial Blood pH 7.37 (7.35-7.45) Arterial Blood pCO2 at Patient Temp 57 mmHg (35-46) Arterial Blood pO2 at Patient Temp 63 mmHg (65-108) Arterial Blood HCO3 32 mmol/L (21-28) Arterial Blood Base Excess 6 mmol/L (-3-3) FiO2 28 Test 06/25/18 21:20 06/26/18 07:37 06/26/18 10:13 06/26/18 11:02 Glucose (Fingerstick) 176 mg/dL (70-99) 122 mg/dL (70-99) 92 mg/dL (70-99) O2 Saturation 92 % (92-99) Arterial Blood pH 7.39 (7.35-7.45) Arterial Blood pCO2 at Patient Temp 58 mmHg (35-46) Arterial Blood pO2 at Patient Temp 63 mmHg (65-108) Arterial Blood HCO3 35 mmol/L (21-28) Arterial Blood Base Excess 8 mmol/L (-3-3) FiO2 28 Test 06/26/18 13:45 06/26/18 17:32 06/26/18 21:17 06/27/18 03:33 Sodium Level 144 mmol/L (136-145) 144 mmol/L (136-145) Potassium Level 3.6 mmol/L (3.5-5.1) 3.4 mmol/L (3.5-5.1) Chloride Level 103 mmol/L (98-107) 104 mmol/L (98-107) Carbon Dioxide Level 36 mmol/L (21-32) 36 mmol/L (21-32) Anion Gap 5 (6-14) 4 (6-14) Blood Urea Nitrogen 31 mg/dL (7-20) 32 mg/dL (7-20) Creatinine 1.8 mg/dL (0.6-1.0) 1.8 mg/dL (0.6-1.0) Estimated GFR (Cockcroft-Gault) 33.3 33.3 Glucose Level 149 mg/dL (70-99) 101 mg/dL (70-99) Calcium Level 9.3 mg/dL (8.5-10.1) 9.1 mg/dL (8.5-10.1) Magnesium Level 1.7 mg/dL (1.8-2.4) Glucose (Fingerstick) 136 mg/dL (70-99) 146 mg/dL (70-99) White Blood Count 6.0 x10^3/uL (4.0-11.0) Red Blood Count 2.96 x10^6/uL (3.50-5.40) Hemoglobin 8.8 g/dL (12.0-15.5) Hematocrit 27.8 % (36.0-47.0) Mean Corpuscular Volume 94 fL (79-100) Mean Corpuscular Hemoglobin 30 pg (25-35) Mean Corpuscular Hemoglobin Concent 32 g/dL (31-37) Red Cell Distribution Width 15.3 % (11.5-14.5) Platelet Count 160 x10^3/uL (140-400) Neutrophils (%) (Auto) 66 % (31-73) Lymphocytes (%) (Auto) 18 % (24-48) Monocytes (%) (Auto) 13 % (0-9) Eosinophils (%) (Auto) 3 % (0-3) Basophils (%) (Auto) 0 % (0-3) Neutrophils # (Auto) 3.9 x10^3uL (1.8-7.7) Lymphocytes # (Auto) 1.1 x10^3/uL (1.0-4.8) Monocytes # (Auto) 0.8 x10^3/uL (0.0-1.1) Eosinophils # (Auto) 0.2 x10^3/uL (0.0-0.7) Basophils # (Auto) 0.0 x10^3/uL (0.0-0.2) BUN/Creatinine Ratio 18 (6-20) Total Bilirubin 0.3 mg/dL (0.2-1.0) Aspartate Amino Transf (AST/SGOT) 18 U/L (15-37) Alanine Aminotransferase (ALT/SGPT) 13 U/L (14-59) Alkaline Phosphatase 79 U/L (46-116) Total Protein 6.1 g/dL (6.4-8.2) Albumin 2.5 g/dL (3.4-5.0) Albumin/Globulin Ratio 0.7 (1.0-1.7) Test 06/27/18 07:37 Glucose (Fingerstick) 83 mg/dL (70-99) Laboratory Tests Test 06/26/18 10:13 06/26/18 11:02 06/26/18 13:45 06/26/18 17:32 O2 Saturation 92 % (92-99) Arterial Blood pH 7.39 (7.35-7.45) Arterial Blood pCO2 at Patient Temp 58 mmHg (35-46) Arterial Blood pO2 at Patient Temp 63 mmHg (65-108) Arterial Blood HCO3 35 mmol/L (21-28) Arterial Blood Base Excess 8 mmol/L (-3-3) FiO2 28 Glucose (Fingerstick) 92 mg/dL (70-99) 136 mg/dL (70-99) Sodium Level 144 mmol/L (136-145) Potassium Level 3.6 mmol/L (3.5-5.1) Chloride Level 103 mmol/L (98-107) Carbon Dioxide Level 36 mmol/L (21-32) Anion Gap 5 (6-14) Blood Urea Nitrogen 31 mg/dL (7-20) Creatinine 1.8 mg/dL (0.6-1.0) Estimated GFR (Cockcroft-Gault) 33.3 Glucose Level 149 mg/dL (70-99) Calcium Level 9.3 mg/dL (8.5-10.1) Magnesium Level 1.7 mg/dL (1.8-2.4) Test 06/26/18 21:17 06/27/18 03:33 06/27/18 07:37 Glucose (Fingerstick) 146 mg/dL (70-99) 83 mg/dL (70-99) White Blood Count 6.0 x10^3/uL (4.0-11.0) Red Blood Count 2.96 x10^6/uL (3.50-5.40) Hemoglobin 8.8 g/dL (12.0-15.5) Hematocrit 27.8 % (36.0-47.0) Mean Corpuscular Volume 94 fL (79-100) Mean Corpuscular Hemoglobin 30 pg (25-35) Mean Corpuscular Hemoglobin Concent 32 g/dL (31-37) Red Cell Distribution Width 15.3 % (11.5-14.5) Platelet Count 160 x10^3/uL (140-400) Neutrophils (%) (Auto) 66 % (31-73) Lymphocytes (%) (Auto) 18 % (24-48) Monocytes (%) (Auto) 13 % (0-9) Eosinophils (%) (Auto) 3 % (0-3) Basophils (%) (Auto) 0 % (0-3) Neutrophils # (Auto) 3.9 x10^3uL (1.8-7.7) Lymphocytes # (Auto) 1.1 x10^3/uL (1.0-4.8) Monocytes # (Auto) 0.8 x10^3/uL (0.0-1.1) Eosinophils # (Auto) 0.2 x10^3/uL (0.0-0.7) Basophils # (Auto) 0.0 x10^3/uL (0.0-0.2) Sodium Level 144 mmol/L (136-145) Potassium Level 3.4 mmol/L (3.5-5.1) Chloride Level 104 mmol/L (98-107) Carbon Dioxide Level 36 mmol/L (21-32) Anion Gap 4 (6-14) Blood Urea Nitrogen 32 mg/dL (7-20) Creatinine 1.8 mg/dL (0.6-1.0) Estimated GFR (Cockcroft-Gault) 33.3 BUN/Creatinine Ratio 18 (6-20) Glucose Level 101 mg/dL (70-99) Calcium Level 9.1 mg/dL (8.5-10.1) Total Bilirubin 0.3 mg/dL (0.2-1.0) Aspartate Amino Transf (AST/SGOT) 18 U/L (15-37) Alanine Aminotransferase (ALT/SGPT) 13 U/L (14-59) Alkaline Phosphatase 79 U/L (46-116) Total Protein 6.1 g/dL (6.4-8.2) Albumin 2.5 g/dL (3.4-5.0) Albumin/Globulin Ratio 0.7 (1.0-1.7) Medications Active Scripts Medications Dose Route/Sig Max Daily Dose Days Date Category Heparin 1,000 Unit/10 (100/ml) (Heparin Sodium,Porcine/Pf) 1,000 Unit/10 Ml Syringe 5,000 Unit SQ TID 06/25/18 Reported Gabapentin (Gabapentin) 100 Mg Capsule 100 Mg PO BID 06/25/18 Reported Metolazone 2.5 Mg Tablet 2.5 Mg PO DAILY 06/25/18 Reported Lasix (Furosemide) 40 Mg Tablet 40 Mg PO DAILY 06/25/18 Reported Hydrocodone-Apap 5-325 (Hydrocodone Bit/Acetaminophen) 1 Each Tablet 1 Tab PO PRN Q4HRS PRN 7 06/18/18 Rx Oxybutynin Chloride 5 Mg Tablet 10 Mg PO HS 06/12/18 Reported Levemir Flextouch (Insulin Detemir) 100 Unit/1 Ml Insuln.pen 40 Unit SQ HS 06/12/18 Reported Pioglitazone Hcl 30 Mg Tablet 30 Mg PO DAILY 06/12/18 Reported Zoloft (Sertraline Hcl) 50 Mg Tablet 1 Tab PO DAILY 06/12/18 Reported Carvedilol (Carvedilol) 12.5 Mg Tablet 12.5 Mg PO BIDWMEALS 07/21/16 Reported Atorvastatin Calcium 40 Mg Tablet 40 Mg PO HS 07/21/16 Reported Novolog Flexpen (Insulin Aspart) 100 Unit/1 Ml Insuln.pen 0 Units SQ TIDWMEALS 30 03/17/16 Rx Aspirin Ec (Aspirin) 81 Mg Tablet.dr 81 Mg PO 03/14/16 Reported Amlodipine Besylate 10 Mg Tablet 10 Mg PO DAILY 03/14/16 Reported Donepezil Hcl 10 Mg Tablet 10 Mg PO HS 03/14/16 Reported Losartan Potassium 100 Mg Tablet 100 Mg PO DAILY 07/24/13 Reported Impression . IMPRESSION: 1. Acute hypercapnic hypoxemic respiratory failure. 2. Akbag-vo-eptqlpo diastolic, suspect systolic heart failure. 3. Morbid obesity. 4. Obstructive sleep apnea. 5. Abnormal x-ray, compatible with congestive heart failure. 6. Generalized weakness. 7. Suspect pulmonary hypertension. 8. GENERALIZED WEAKNESS Plan . continue PRN Bipap, QHS Possible LTAC evaluation and transfer [facility] PT/OT discussed with ALLEN Lane MD Jun 27, 2018 09:19
[2018-06-27 10:29] LABS: BILIRUBIN,URINE NEGATIVE (NEG); CLARITY,URINE CLEAR; COLOR,URINE YELLOW; NITRITE,URINE NEGATIVE (NEG); PH,URINE 5.5; PROTEIN,URINE NEGATIVE (NEG-TRACE); UROBILINOGEN,URINE 0.2 mg/dL (0.2 mg/dL)
[2018-06-27 10:39] LABS: HYALINE CASTS, URINE OCCASIONAL /HPF; SQUAMOUS EPITHELIAL CELL,UR FEW /LPF
[2018-06-27 10:41] LABS: BACTERIA,URINE 0 /HPF (0-FEW)
--- NOTE | 2018-06-27 10:54 | NUR ---
SS following up with discharge planning. SS phoned and faxed clinical updates to [facility], ; fax [phone]. SS awaiting insurance authorization for pt's return to [facility] and will proceed accordingly with discharge planning.
[2018-06-27 11:00] VITALS: BP 123/53
--- NOTE | 2018-06-27 11:50 | PDOC ---
PROGRESS NOTES Chief Complaint Chief Complaint Shortness of Breath during Rehab History of Present Illness History of Present Illness Pt seen and examined in her room. Today she was laying in her bed. Alert, oriented, and in NAD. She complains of a cough. I discussed the pt with her RN. The pt was not using her BiPAP at [place], which is most likely what lead to her admit to the hospital. The BiPAP machine is now fixed. We are planning on D/ C tomorrow back to [place] if okay by subspecialist Vitals Vitals Vital Signs Date Time Temp Pulse Resp B/P (MAP) Pulse Ox O2 Delivery O2 Flow Rate FiO2 06/27/18 11:29 97 Nasal Cannula 2.0 06/27/18 09:01 75 06/27/18 07:00 98.9 18 170/67 (101) 98.9 Physical Exam General: Cooperative, No acute distress, Other (drowsy) Heart: Regular rate (SR), Other (distant heart sounds) Lungs: Clear Abdomen: Soft, No tenderness, Other (obese, normoactive bowel sounds, nontender ) Extremities: No cyanosis, Other (3+ bilateral LE pitting edema) Skin: No breakdown, No significant lesion Labs LABS Laboratory Tests Test 06/26/18 13:45 06/26/18 17:32 06/26/18 21:17 06/27/18 03:33 Sodium Level 144 mmol/L (136-145) 144 mmol/L (136-145) Potassium Level 3.6 mmol/L (3.5-5.1) 3.4 mmol/L (3.5-5.1) Chloride Level 103 mmol/L (98-107) 104 mmol/L (98-107) Carbon Dioxide Level 36 mmol/L (21-32) 36 mmol/L (21-32) Anion Gap 5 (6-14) 4 (6-14) Blood Urea Nitrogen 31 mg/dL (7-20) 32 mg/dL (7-20) Creatinine 1.8 mg/dL (0.6-1.0) 1.8 mg/dL (0.6-1.0) Estimated GFR (Cockcroft-Gault) 33.3 33.3 Glucose Level 149 mg/dL (70-99) 101 mg/dL (70-99) Calcium Level 9.3 mg/dL (8.5-10.1) 9.1 mg/dL (8.5-10.1) Magnesium Level 1.7 mg/dL (1.8-2.4) Glucose (Fingerstick) 136 mg/dL (70-99) 146 mg/dL (70-99) White Blood Count 6.0 x10^3/uL (4.0-11.0) Red Blood Count 2.96 x10^6/uL (3.50-5.40) Hemoglobin 8.8 g/dL (12.0-15.5) Hematocrit 27.8 % (36.0-47.0) Mean Corpuscular Volume 94 fL (79-100) Mean Corpuscular Hemoglobin 30 pg (25-35) Mean Corpuscular Hemoglobin Concent 32 g/dL (31-37) Red Cell Distribution Width 15.3 % (11.5-14.5) Platelet Count 160 x10^3/uL (140-400) Neutrophils (%) (Auto) 66 % (31-73) Lymphocytes (%) (Auto) 18 % (24-48) Monocytes (%) (Auto) 13 % (0-9) Eosinophils (%) (Auto) 3 % (0-3) Basophils (%) (Auto) 0 % (0-3) Neutrophils # (Auto) 3.9 x10^3uL (1.8-7.7) Lymphocytes # (Auto) 1.1 x10^3/uL (1.0-4.8) Monocytes # (Auto) 0.8 x10^3/uL (0.0-1.1) Eosinophils # (Auto) 0.2 x10^3/uL (0.0-0.7) Basophils # (Auto) 0.0 x10^3/uL (0.0-0.2) BUN/Creatinine Ratio 18 (6-20) Total Bilirubin 0.3 mg/dL (0.2-1.0) Aspartate Amino Transf (AST/SGOT) 18 U/L (15-37) Alanine Aminotransferase (ALT/SGPT) 13 U/L (14-59) Alkaline Phosphatase 79 U/L (46-116) Total Protein 6.1 g/dL (6.4-8.2) Albumin 2.5 g/dL (3.4-5.0) Albumin/Globulin Ratio 0.7 (1.0-1.7) Test 06/27/18 07:37 06/27/18 09:55 Glucose (Fingerstick) 83 mg/dL (70-99) Urine Collection Type Unknown Urine Color Yellow Urine Clarity Clear Urine pH 5.5 Urine Specific [place] 1.010 Urine Protein Negative mg/dL (NEG-TRACE) Urine Glucose (UA) Negative mg/dL (NEG) Urine Ketones (Stick) Negative mg/dL (NEG) Urine Blood Negative (NEG) Urine Nitrite Negative (NEG) Urine Bilirubin Negative (NEG) Urine Urobilinogen Dipstick 0.2 mg/dL (0.2 mg/dL) Urine Leukocyte Esterase Small (NEG) Urine RBC 6-10 /HPF (0-2) Urine WBC 11-20 /HPF (0-4) Urine Squamous Epithelial Cells Few /LPF Urine Bacteria 0 /HPF (0-FEW) Urine Hyaline Casts Occasional /HPF Review of Systems Review of Systems GENERAL: no fever, fatigue, or chills. CARDIAC: no palpitations, or chest pain. RESPIRATORY: no shortness of breath, complains of cough EXTREMITIES: no edema Assessment and Plan Assessmemt and Plan Assessment 1. Hypertensive Emergency 2. Congestive Heart Failure, Preserved EF (56% - last echo). 3. Acute Respiratory Failure 4. Elevated BNP 5. T2DM - on insulin. 6. Obesity (BMI 46.1) 7. ALEXYS - on CPAP. 8. CKD, stage 3. 9. Dyslipidemia. 10. PVD s/p right popliteral to peroneal artery bypass. Plan 1. IV Lasix 2. cardiac monitoring 3. serial enzymes 4. cardiology following 5. antihypertensive therapy 6. O2, BiPaP as needed 7. PT/OT 8. monitor labs 9. home meds 10. appreciate subspecialist input Probable D/C tomorrow back to [place] Comment Review of Relevant I have reviewed the following items joel (where applicable) has been applied. Labs Laboratory Tests Test 06/25/18 13:11 06/25/18 17:00 06/25/18 17:17 06/25/18 21:20 Glucose (Fingerstick) 136 mg/dL (70-99) 190 mg/dL (70-99) 176 mg/dL (70-99) O2 Saturation 91 % (92-99) Arterial Blood pH 7.37 (7.35-7.45) Arterial Blood pCO2 at Patient Temp 57 mmHg (35-46) Arterial Blood pO2 at Patient Temp 63 mmHg (65-108) Arterial Blood HCO3 32 mmol/L (21-28) Arterial Blood Base Excess 6 mmol/L (-3-3) FiO2 28 Test 06/26/18 07:37 06/26/18 10:13 06/26/18 11:02 06/26/18 13:45 Glucose (Fingerstick) 122 mg/dL (70-99) 92 mg/dL (70-99) O2 Saturation 92 % (92-99) Arterial Blood pH 7.39 (7.35-7.45) Arterial Blood pCO2 at Patient Temp 58 mmHg (35-46) Arterial Blood pO2 at Patient Temp 63 mmHg (65-108) Arterial Blood HCO3 35 mmol/L (21-28) Arterial Blood Base Excess 8 mmol/L (-3-3) FiO2 28 Sodium Level 144 mmol/L (136-145) Potassium Level 3.6 mmol/L (3.5-5.1) Chloride Level 103 mmol/L (98-107) Carbon Dioxide Level 36 mmol/L (21-32) Anion Gap 5 (6-14) Blood Urea Nitrogen 31 mg/dL (7-20) Creatinine 1.8 mg/dL (0.6-1.0) Estimated GFR (Cockcroft-Gault) 33.3 Glucose Level 149 mg/dL (70-99) Calcium Level 9.3 mg/dL (8.5-10.1) Magnesium Level 1.7 mg/dL (1.8-2.4) Test 06/26/18 17:32 06/26/18 21:17 06/27/18 03:33 06/27/18 07:37 Glucose (Fingerstick) 136 mg/dL (70-99) 146 mg/dL (70-99) 83 mg/dL (70-99) White Blood Count 6.0 x10^3/uL (4.0-11.0) Red Blood Count 2.96 x10^6/uL (3.50-5.40) Hemoglobin 8.8 g/dL (12.0-15.5) Hematocrit 27.8 % (36.0-47.0) Mean Corpuscular Volume 94 fL (79-100) Mean Corpuscular Hemoglobin 30 pg (25-35) Mean Corpuscular Hemoglobin Concent 32 g/dL (31-37) Red Cell Distribution Width 15.3 % (11.5-14.5) Platelet Count 160 x10^3/uL (140-400) Neutrophils (%) (Auto) 66 % (31-73) Lymphocytes (%) (Auto) 18 % (24-48) Monocytes (%) (Auto) 13 % (0-9) Eosinophils (%) (Auto) 3 % (0-3) Basophils (%) (Auto) 0 % (0-3) Neutrophils # (Auto) 3.9 x10^3uL (1.8-7.7) Lymphocytes # (Auto) 1.1 x10^3/uL (1.0-4.8) Monocytes # (Auto) 0.8 x10^3/uL (0.0-1.1) Eosinophils # (Auto) 0.2 x10^3/uL (0.0-0.7) Basophils # (Auto) 0.0 x10^3/uL (0.0-0.2) Sodium Level 144 mmol/L (136-145) Potassium Level 3.4 mmol/L (3.5-5.1) Chloride Level 104 mmol/L (98-107) Carbon Dioxide Level 36 mmol/L (21-32) Anion Gap 4 (6-14) Blood Urea Nitrogen 32 mg/dL (7-20) Creatinine 1.8 mg/dL (0.6-1.0) Estimated GFR (Cockcroft-Gault) 33.3 BUN/Creatinine Ratio 18 (6-20) Glucose Level 101 mg/dL (70-99) Calcium Level 9.1 mg/dL (8.5-10.1) Total Bilirubin 0.3 mg/dL (0.2-1.0) Aspartate Amino Transf (AST/SGOT) 18 U/L (15-37) Alanine Aminotransferase (ALT/SGPT) 13 U/L (14-59) Alkaline Phosphatase 79 U/L (46-116) Total Protein 6.1 g/dL (6.4-8.2) Albumin 2.5 g/dL (3.4-5.0) Albumin/Globulin Ratio 0.7 (1.0-1.7) Test 06/27/18 09:55 Urine Collection Type Unknown Urine Color Yellow Urine Clarity Clear Urine pH 5.5 Urine Specific [place] 1.010 Urine Protein Negative mg/dL (NEG-TRACE) Urine Glucose (UA) Negative mg/dL (NEG) Urine Ketones (Stick) Negative mg/dL (NEG) Urine Blood Negative (NEG) Urine Nitrite Negative (NEG) Urine Bilirubin Negative (NEG) Urine Urobilinogen Dipstick 0.2 mg/dL (0.2 mg/dL) Urine Leukocyte Esterase Small (NEG) Urine RBC 6-10 /HPF (0-2) Urine WBC 11-20 /HPF (0-4) Urine Squamous Epithelial Cells Few /LPF Urine Bacteria 0 /HPF (0-FEW) Urine Hyaline Casts Occasional /HPF Laboratory Tests Test 06/26/18 13:45 06/26/18 17:32 06/26/18 21:17 06/27/18 03:33 Sodium Level 144 mmol/L (136-145) 144 mmol/L (136-145) Potassium Level 3.6 mmol/L (3.5-5.1) 3.4 mmol/L (3.5-5.1) Chloride Level 103 mmol/L (98-107) 104 mmol/L (98-107) Carbon Dioxide Level 36 mmol/L (21-32) 36 mmol/L (21-32) Anion Gap 5 (6-14) 4 (6-14) Blood Urea Nitrogen 31 mg/dL (7-20) 32 mg/dL (7-20) Creatinine 1.8 mg/dL (0.6-1.0) 1.8 mg/dL (0.6-1.0) Estimated GFR (Cockcroft-Gault) 33.3 33.3 Glucose Level 149 mg/dL (70-99) 101 mg/dL (70-99) Calcium Level 9.3 mg/dL (8.5-10.1) 9.1 mg/dL (8.5-10.1) Magnesium Level 1.7 mg/dL (1.8-2.4) Glucose (Fingerstick) 136 mg/dL (70-99) 146 mg/dL (70-99) White Blood Count 6.0 x10^3/uL (4.0-11.0) Red Blood Count 2.96 x10^6/uL (3.50-5.40) Hemoglobin 8.8 g/dL (12.0-15.5) Hematocrit 27.8 % (36.0-47.0) Mean Corpuscular Volume 94 fL (79-100) Mean Corpuscular Hemoglobin 30 pg (25-35) Mean Corpuscular Hemoglobin Concent 32 g/dL (31-37) Red Cell Distribution Width 15.3 % (11.5-14.5) Platelet Count 160 x10^3/uL (140-400) Neutrophils (%) (Auto) 66 % (31-73) Lymphocytes (%) (Auto) 18 % (24-48) Monocytes (%) (Auto) 13 % (0-9) Eosinophils (%) (Auto) 3 % (0-3) Basophils (%) (Auto) 0 % (0-3) Neutrophils # (Auto) 3.9 x10^3uL (1.8-7.7) Lymphocytes # (Auto) 1.1 x10^3/uL (1.0-4.8) Monocytes # (Auto) 0.8 x10^3/uL (0.0-1.1) Eosinophils # (Auto) 0.2 x10^3/uL (0.0-0.7) Basophils # (Auto) 0.0 x10^3/uL (0.0-0.2) BUN/Creatinine Ratio 18 (6-20) Total Bilirubin 0.3 mg/dL (0.2-1.0) Aspartate Amino Transf (AST/SGOT) 18 U/L (15-37) Alanine Aminotransferase (ALT/SGPT) 13 U/L (14-59) Alkaline Phosphatase 79 U/L (46-116) Total Protein 6.1 g/dL (6.4-8.2) Albumin 2.5 g/dL (3.4-5.0) Albumin/Globulin Ratio 0.7 (1.0-1.7) Test 06/27/18 07:37 06/27/18 09:55 Glucose (Fingerstick) 83 mg/dL (70-99) Urine Collection Type Unknown Urine Color Yellow Urine Clarity Clear Urine pH 5.5 Urine Specific [place] 1.010 Urine Protein Negative mg/dL (NEG-TRACE) Urine Glucose (UA) Negative mg/dL (NEG) Urine Ketones (Stick) Negative mg/dL (NEG) Urine Blood Negative (NEG) Urine Nitrite Negative (NEG) Urine Bilirubin Negative (NEG) Urine Urobilinogen Dipstick 0.2 mg/dL (0.2 mg/dL) Urine Leukocyte Esterase Small (NEG) Urine RBC 6-10 /HPF (0-2) Urine WBC 11-20 /HPF (0-4) Urine Squamous Epithelial Cells Few /LPF Urine Bacteria 0 /HPF (0-FEW) Urine Hyaline Casts Occasional /HPF Medications Current Medications Albuterol/ Ipratropium (Duoneb) 3 ml 1X ONCE NEB Last administered on at 05:57; Start 06/25/18 at 06:00; Stop 06/25/18 at 06:01; Status DC Carvedilol (Coreg) 12.5 mg 1X ONCE PO Last administered on 06/25/18at 06:25; Start 06/25/18 at 06:15; Stop 06/25/18 at 06:16; Status DC Amlodipine Besylate (Norvasc) 10 mg 1X ONCE PO Last administered on 06/25/18at 06:25; Start 06/25/18 at 06:15; Stop 06/25/18 at 06:16; Status DC Losartan Potassium (Cozaar) 100 mg 1X ONCE PO Last administered on 06/25/18at 06:25; Start 06/25/18 at 06:15; Stop 06/25/18 at 06:16; Status DC Furosemide (Lasix) 40 mg 1X ONCE IVP Last administered on 06/25/18at 06:15; Start 06/25/18 at 06:15; Stop 06/25/18 at 06:16; Status DC Furosemide (Lasix) 40 mg STK-MED ONCE .ROUTE ; Start 06/25/18 at 06:14; Stop 05/01 at 06:15; Status DC Hydralazine HCl (Apresoline Inj) 10 mg 1X ONCE IVP Last administered on at 07:46; Start 06/25/18 at 07:15; Stop 06/25/18 at 07:16; Status DC Hydralazine HCl (Apresoline Inj) 20 mg 1X ONCE IVP Last administered on at 08:16; Start 06/25/18 at 08:15; Stop 06/25/18 at 08:16; Status DC Albuterol/ Ipratropium (Duoneb) 3 ml RTQID NEB Last administered on 06/27/18 11:28; Start 06/25/18 at 12:00 Amlodipine Besylate (Norvasc) 10 mg DAILY PO Last administered on 06/27/18 09: 01; Start 06/25/18 at 10:00 Aspirin (Ecotrin) 81 mg DAILY PO Last administered on 06/27/18 08:59; Start at 10:00 Atorvastatin Calcium (Lipitor) 40 mg HS PO Last administered on 06/26/18 22:19 ; Start 06/25/18 at 21:00 Carvedilol (Coreg) 12.5 mg BIDWMEALS PO Last administered on 06/27/18 09:00; Start 06/25/18 at 10:00 Gabapentin (Neurontin) 100 mg BID PO Last administered on 06/27/18 09:01; Start 06/25/18 at 10:00 Acetaminophen/ Hydrocodone Bitart (Lortab 5/325) 1 tab PRN Q4HRS PRN PO SEVERE PAIN; Start 06/25/18 at 09:30 Oxybutynin Chloride (Ditropan) 10 mg HS PO Last administered on 06/26/18 22:19 ; Start 06/25/18 at 21:00 Sertraline HCl (Zoloft) 50 mg DAILY PO Last administered on 06/27/18 09:00; Start 06/25/18 at 10:00 Donepezil HCl (Aricept) 10 mg QHS PO Last administered on 06/26/18 22:19; Start 06/25/18 at 21:00 Heparin Sodium (Porcine) (Heparin Sodium) 5,000 unit Q8HRS SQ Last administered on 06/27/18 06:19; Start 06/25/18 at 14:00 Non-Formulary Medication (Insulin Aspart (Novolog Flexpen)) TIDWMEALS SQ ; Start 06/25/18 at 12:00; Status UNV Insulin Glargine (Lantus) 40 units QHS SQ Last administered on 06/26/18 22:20 ; Start 06/25/18 at 21:00 Losartan Potassium (Cozaar) 100 mg DAILY PO Last administered on 06/27/18 09: 00; Start 06/25/18 at 10:00 Metolazone (Zaroxolyn) 2.5 mg DAILY PO Last administered on 06/27/18 09:00; Start 06/25/18 at 10:00 Pioglitazone HCl (Actos) 15 mg DAILY PO Last administered on 06/27/18 09:00; Start 06/25/18 at 10:00 Furosemide (Lasix) 40 mg DAILY IVP Last administered on 06/25/18at 12:54; Start 06/25/18 at 10:00; Stop 06/25/18 at 14:00; Status DC Insulin Human Lispro (HumaLOG) 0-9 UNITS TIDWMEALS SQ Last administered on 06/25 17:42; Start 06/25/18 at 12:00 Dextrose (Dextrose 50%-Water Syringe) 12.5 gm PRN Q15MIN PRN IV SEE COMMENTS; Start 06/25/18 at 09:30 Acetaminophen (Tylenol) 500 mg PRN Q6HRS PRN PO MILD PAIN / TEMP Last administered on 06/25/18at 12:56; Start 06/25/18 at 09:30 Acetaminophen/ Codeine Phosphate (Tylenol #3) 1 tab PRN Q6HRS PRN PO MODERATE PAIN; Start 06/25/18 at 09:30 Furosemide (Lasix) 40 mg [id number] IVP Last administered on 06/26/18at 06:08; Start 06/25/18 at 18:00; Stop 06/26/18 at 17:38; Status DC Hydralazine HCl (Apresoline) 50 mg BID PO Last administered on 06/27/18at 09:01 ; Start 06/25/18 at 14:00 Hydralazine HCl (Apresoline Inj) 10 mg PRN Q4HRS PRN IVP ELEVATED BP, SEE COMMENTS; Start 06/25/18 at 14:00 Isosorbide Mononitrate (Imdur) 30 mg DAILY PO Last administered on 06/27/18at 09 :00; Start 06/26/18 at 09:00 Magnesium Sulfate 50 ml @ 25 mls/hr 1X ONCE IV Last administered on 06/26/18 18:20; Start 06/26/18 at 17:30; Stop 06/26/18 at 19:29; Status DC Furosemide (Lasix) 40 mg [id number] PO Last administered on 06/27/18at 09:01; Start 06/27/18 at 09:00 Diclofenac Sodium (Voltaren) 1 yudy BID TP Last administered on 06/27/18at 09:01 ; Start 06/26/18 at 21:00 Active Scripts Active Hydrocodone-Apap 5-325 (Hydrocodone Bit/Acetaminophen) 1 Each Tablet 1 Tab PO PRN Q4HRS PRN 7 Days Novolog Flexpen (Insulin Aspart) 100 Unit/1 Ml Insuln.pen 0 Units SQ TIDWMEALS 30 Days Reported Heparin 1,000 Unit/10 (100/ml) (Heparin Sodium,Porcine/Pf) 1,000 Unit/10 Ml Syringe 5,000 Unit SQ TID Gabapentin (Gabapentin) 100 Mg Capsule 100 Mg PO BID Metolazone 2.5 Mg Tablet 2.5 Mg PO DAILY Lasix (Furosemide) 40 Mg Tablet 40 Mg PO DAILY Oxybutynin Chloride 5 Mg Tablet 10 Mg PO HS Levemir Flextouch (Insulin Detemir) 100 Unit/1 Ml Insuln.pen 40 Unit SQ HS Pioglitazone Hcl 30 Mg Tablet 30 Mg PO DAILY Zoloft (Sertraline Hcl) 50 Mg Tablet 1 Tab PO DAILY Carvedilol (Carvedilol) 12.5 Mg Tablet 12.5 Mg PO BIDWMEALS Atorvastatin Calcium 40 Mg Tablet 40 Mg PO HS Aspirin Ec (Aspirin) 81 Mg Tablet.dr 81 Mg PO Amlodipine Besylate 10 Mg Tablet 10 Mg PO DAILY Donepezil Hcl 10 Mg Tablet 10 Mg PO HS Losartan Potassium 100 Mg Tablet 100 Mg PO DAILY Vitals/I & O Vital Sign - Last 24 Hours 06/26/18 06/26/18 06/26/18 06/26/18 11:57 15:00 15:35 18:18 Temp 98.2 98.2 Pulse 74 85 Resp 18 B/P (MAP) 146/59 (88) Pulse Ox 99 96 98 O2 Delivery Nasal Cannula Nasal Cannula Nasal Cannula O2 Flow Rate 2.0 2.0 2.0 06/26/18 06/26/18 06/26/18 06/26/18 19:35 19:53 19:55 22:18 Temp 99.5 99.5 Pulse 73 73 Resp 16 B/P (MAP) 130/47 (74) 130/47 Pulse Ox 95 98 O2 Delivery Nasal Cannula Nasal Cannula Nasal Cannula O2 Flow Rate 2.0 2.0 2.0 06/26/18 06/27/18 06/27/18 06/27/18 22:37 02:05 07:00 07:44 Temp 98.6 100.6 98.9 98.6 100.6 98.9 Pulse 75 74 69 Resp 18 16 18 B/P (MAP) 120/61 (80) 118/49 (72) 170/67 (101) Pulse Ox 95 96 96 97 O2 Delivery Nasal Cannula Nasal Cannula Nasal Cannula Nasal Cannula O2 Flow Rate 2.0 2.0 2.0 2.0 06/27/18 06/27/18 06/27/18 06/27/18 08:00 09:00 09:00 09:00 Pulse 70 75 75 O2 Delivery Nasal Cannula O2 Flow Rate 2.0 06/27/18 06/27/18 06/27/18 09:01 09:01 11:29 Pulse 75 75 Pulse Ox 97 O2 Delivery Nasal Cannula O2 Flow Rate 2.0 Intake and Output 06/26/18 06/26/18 06/27/18 15:00 23:00 07:00 Intake Total 100 ml 200 ml Output Total 1250 ml 600 ml Balance -1150 ml -400 ml MARIFER BOLAÑOS III DO Jun 27, 2018 11:50
[2018-06-27] MEDS ORDERED: methylPREDNISolone ACETATE 40 MG/ML VIAL. IM ONE (13:45)
[2018-06-27] MEDS ORDERED: BUPIVACAINE MPF 0.25% 10 ML VIAL. IJ ONE (13:45)
--- NOTE | 2018-06-27 13:51 | PDOC ---
PROGRESS NOTES Subjective Subjective She does not feel good and she had difficulty to get up this AM and admits pain left knee joint. Objective Objective Vital Signs Date Time Temp Pulse Resp B/P (MAP) Pulse Ox O2 Delivery O2 Flow Rate FiO2 06/27/18 11:29 97 Nasal Cannula 2.0 06/27/18 11:00 98.6 64 18 123/53 (76) 98.6 Intake and Output 06/27/18 07:00 Intake Total 300 ml Output Total 1850 ml Balance -1550 ml Intake Oral 300 ml Output Urine Total 1850 ml Physical Exam Physical Exam She is sitting up in bed with head end of bed propped up and she continues with generalized edema and weakness and mobility and self care limitations. I spoke to nursing cardiology and and social service. Assessment Assessment Problems Medical Problems: (1) Elevated troponin Status: Acute Plan Plan of Care To proceed with injecting painful left knee joint and she is not stable medically to be transferred to SNF,especially where she came after a few days stay with respiratory failure.To ask for transfer to LTAC unit or acute rehab unit when medically stable. Comment Review of Relevant I have reviewed the following items joel (where applicable) has been applied. Labs Laboratory Tests Test 06/25/18 17:00 06/25/18 17:17 06/25/18 21:20 06/26/18 07:37 O2 Saturation 91 % (92-99) Arterial Blood pH 7.37 (7.35-7.45) Arterial Blood pCO2 at Patient Temp 57 mmHg (35-46) Arterial Blood pO2 at Patient Temp 63 mmHg (65-108) Arterial Blood HCO3 32 mmol/L (21-28) Arterial Blood Base Excess 6 mmol/L (-3-3) FiO2 28 Glucose (Fingerstick) 190 mg/dL (70-99) 176 mg/dL (70-99) 122 mg/dL (70-99) Test 06/26/18 10:13 06/26/18 11:02 06/26/18 13:45 06/26/18 17:32 O2 Saturation 92 % (92-99) Arterial Blood pH 7.39 (7.35-7.45) Arterial Blood pCO2 at Patient Temp 58 mmHg (35-46) Arterial Blood pO2 at Patient Temp 63 mmHg (65-108) Arterial Blood HCO3 35 mmol/L (21-28) Arterial Blood Base Excess 8 mmol/L (-3-3) FiO2 28 Glucose (Fingerstick) 92 mg/dL (70-99) 136 mg/dL (70-99) Sodium Level 144 mmol/L (136-145) Potassium Level 3.6 mmol/L (3.5-5.1) Chloride Level 103 mmol/L (98-107) Carbon Dioxide Level 36 mmol/L (21-32) Anion Gap 5 (6-14) Blood Urea Nitrogen 31 mg/dL (7-20) Creatinine 1.8 mg/dL (0.6-1.0) Estimated GFR (Cockcroft-Gault) 33.3 Glucose Level 149 mg/dL (70-99) Calcium Level 9.3 mg/dL (8.5-10.1) Magnesium Level 1.7 mg/dL (1.8-2.4) Test 06/26/18 21:17 06/27/18 03:33 06/27/18 07:37 06/27/18 09:55 Glucose (Fingerstick) 146 mg/dL (70-99) 83 mg/dL (70-99) White Blood Count 6.0 x10^3/uL (4.0-11.0) Red Blood Count 2.96 x10^6/uL (3.50-5.40) Hemoglobin 8.8 g/dL (12.0-15.5) Hematocrit 27.8 % (36.0-47.0) Mean Corpuscular Volume 94 fL (79-100) Mean Corpuscular Hemoglobin 30 pg (25-35) Mean Corpuscular Hemoglobin Concent 32 g/dL (31-37) Red Cell Distribution Width 15.3 % (11.5-14.5) Platelet Count 160 x10^3/uL (140-400) Neutrophils (%) (Auto) 66 % (31-73) Lymphocytes (%) (Auto) 18 % (24-48) Monocytes (%) (Auto) 13 % (0-9) Eosinophils (%) (Auto) 3 % (0-3) Basophils (%) (Auto) 0 % (0-3) Neutrophils # (Auto) 3.9 x10^3uL (1.8-7.7) Lymphocytes # (Auto) 1.1 x10^3/uL (1.0-4.8) Monocytes # (Auto) 0.8 x10^3/uL (0.0-1.1) Eosinophils # (Auto) 0.2 x10^3/uL (0.0-0.7) Basophils # (Auto) 0.0 x10^3/uL (0.0-0.2) Sodium Level 144 mmol/L (136-145) Potassium Level 3.4 mmol/L (3.5-5.1) Chloride Level 104 mmol/L (98-107) Carbon Dioxide Level 36 mmol/L (21-32) Anion Gap 4 (6-14) Blood Urea Nitrogen 32 mg/dL (7-20) Creatinine 1.8 mg/dL (0.6-1.0) Estimated GFR (Cockcroft-Gault) 33.3 BUN/Creatinine Ratio 18 (6-20) Glucose Level 101 mg/dL (70-99) Calcium Level 9.1 mg/dL (8.5-10.1) Total Bilirubin 0.3 mg/dL (0.2-1.0) Aspartate Amino Transf (AST/SGOT) 18 U/L (15-37) Alanine Aminotransferase (ALT/SGPT) 13 U/L (14-59) Alkaline Phosphatase 79 U/L (46-116) Total Protein 6.1 g/dL (6.4-8.2) Albumin 2.5 g/dL (3.4-5.0) Albumin/Globulin Ratio 0.7 (1.0-1.7) Urine Collection Type Unknown Urine Color Yellow Urine Clarity Clear Urine pH 5.5 Urine Specific [place] 1.010 Urine Protein Negative mg/dL (NEG-TRACE) Urine Glucose (UA) Negative mg/dL (NEG) Urine Ketones (Stick) Negative mg/dL (NEG) Urine Blood Negative (NEG) Urine Nitrite Negative (NEG) Urine Bilirubin Negative (NEG) Urine Urobilinogen Dipstick 0.2 mg/dL (0.2 mg/dL) Urine Leukocyte Esterase Small (NEG) Urine RBC 6-10 /HPF (0-2) Urine WBC 11-20 /HPF (0-4) Urine Squamous Epithelial Cells Few /LPF Urine Bacteria 0 /HPF (0-FEW) Urine Hyaline Casts Occasional /HPF Test 06/27/18 11:19 Glucose (Fingerstick) 101 mg/dL (70-99) Laboratory Tests Test 06/26/18 13:45 06/26/18 17:32 06/26/18 21:17 06/27/18 03:33 Sodium Level 144 mmol/L (136-145) 144 mmol/L (136-145) Potassium Level 3.6 mmol/L (3.5-5.1) 3.4 mmol/L (3.5-5.1) Chloride Level 103 mmol/L (98-107) 104 mmol/L (98-107) Carbon Dioxide Level 36 mmol/L (21-32) 36 mmol/L (21-32) Anion Gap 5 (6-14) 4 (6-14) Blood Urea Nitrogen 31 mg/dL (7-20) 32 mg/dL (7-20) Creatinine 1.8 mg/dL (0.6-1.0) 1.8 mg/dL (0.6-1.0) Estimated GFR (Cockcroft-Gault) 33.3 33.3 Glucose Level 149 mg/dL (70-99) 101 mg/dL (70-99) Calcium Level 9.3 mg/dL (8.5-10.1) 9.1 mg/dL (8.5-10.1) Magnesium Level 1.7 mg/dL (1.8-2.4) Glucose (Fingerstick) 136 mg/dL (70-99) 146 mg/dL (70-99) White Blood Count 6.0 x10^3/uL (4.0-11.0) Red Blood Count 2.96 x10^6/uL (3.50-5.40) Hemoglobin 8.8 g/dL (12.0-15.5) Hematocrit 27.8 % (36.0-47.0) Mean Corpuscular Volume 94 fL (79-100) Mean Corpuscular Hemoglobin 30 pg (25-35) Mean Corpuscular Hemoglobin Concent 32 g/dL (31-37) Red Cell Distribution Width 15.3 % (11.5-14.5) Platelet Count 160 x10^3/uL (140-400) Neutrophils (%) (Auto) 66 % (31-73) Lymphocytes (%) (Auto) 18 % (24-48) Monocytes (%) (Auto) 13 % (0-9) Eosinophils (%) (Auto) 3 % (0-3) Basophils (%) (Auto) 0 % (0-3) Neutrophils # (Auto) 3.9 x10^3uL (1.8-7.7) Lymphocytes # (Auto) 1.1 x10^3/uL (1.0-4.8) Monocytes # (Auto) 0.8 x10^3/uL (0.0-1.1) Eosinophils # (Auto) 0.2 x10^3/uL (0.0-0.7) Basophils # (Auto) 0.0 x10^3/uL (0.0-0.2) BUN/Creatinine Ratio 18 (6-20) Total Bilirubin 0.3 mg/dL (0.2-1.0) Aspartate Amino Transf (AST/SGOT) 18 U/L (15-37) Alanine Aminotransferase (ALT/SGPT) 13 U/L (14-59) Alkaline Phosphatase 79 U/L (46-116) Total Protein 6.1 g/dL (6.4-8.2) Albumin 2.5 g/dL (3.4-5.0) Albumin/Globulin Ratio 0.7 (1.0-1.7) Test 06/27/18 07:37 06/27/18 09:55 06/27/18 11:19 Glucose (Fingerstick) 83 mg/dL (70-99) 101 mg/dL (70-99) Urine Collection Type Unknown Urine Color Yellow Urine Clarity Clear Urine pH 5.5 Urine Specific [place] 1.010 Urine Protein Negative mg/dL (NEG-TRACE) Urine Glucose (UA) Negative mg/dL (NEG) Urine Ketones (Stick) Negative mg/dL (NEG) Urine Blood Negative (NEG) Urine Nitrite Negative (NEG) Urine Bilirubin Negative (NEG) Urine Urobilinogen Dipstick 0.2 mg/dL (0.2 mg/dL) Urine Leukocyte Esterase Small (NEG) Urine RBC 6-10 /HPF (0-2) Urine WBC 11-20 /HPF (0-4) Urine Squamous Epithelial Cells Few /LPF Urine Bacteria 0 /HPF (0-FEW) Urine Hyaline Casts Occasional /HPF Medications Current Medications Albuterol/ Ipratropium (Duoneb) 3 ml 1X ONCE NEB Last administered on at 05:57; Start 06/25/18 at 06:00; Stop 06/25/18 at 06:01; Status DC Carvedilol (Coreg) 12.5 mg 1X ONCE PO Last administered on 06/25/18at 06:25; Start 06/25/18 at 06:15; Stop 06/25/18 at 06:16; Status DC Amlodipine Besylate (Norvasc) 10 mg 1X ONCE PO Last administered on 06/25/18at 06:25; Start 06/25/18 at 06:15; Stop 06/25/18 at 06:16; Status DC Losartan Potassium (Cozaar) 100 mg 1X ONCE PO Last administered on 06/25/18at 06:25; Start 06/25/18 at 06:15; Stop 06/25/18 at 06:16; Status DC Furosemide (Lasix) 40 mg 1X ONCE IVP Last administered on 06/25/18at 06:15; Start 06/25/18 at 06:15; Stop 06/25/18 at 06:16; Status DC Furosemide (Lasix) 40 mg STK-MED ONCE .ROUTE ; Start 06/25/18 at 06:14; Stop 05/01 at 06:15; Status DC Hydralazine HCl (Apresoline Inj) 10 mg 1X ONCE IVP Last administered on at 07:46; Start 06/25/18 at 07:15; Stop 06/25/18 at 07:16; Status DC Hydralazine HCl (Apresoline Inj) 20 mg 1X ONCE IVP Last administered on at 08:16; Start 06/25/18 at 08:15; Stop 06/25/18 at 08:16; Status DC Albuterol/ Ipratropium (Duoneb) 3 ml RTQID NEB Last administered on 06/27/18at 11:28; Start 06/25/18 at 12:00 Amlodipine Besylate (Norvasc) 10 mg DAILY PO Last administered on 06/27/18at 09: 01; Start 06/25/18 at 10:00 Aspirin (Ecotrin) 81 mg DAILY PO Last administered on 06/27/18at 08:59; Start at 10:00 Atorvastatin Calcium (Lipitor) 40 mg HS PO Last administered on 06/26/18at 22:19 ; Start 06/25/18 at 21:00 Carvedilol (Coreg) 12.5 mg BIDWMEALS PO Last administered on 06/27/18 09:00; Start 06/25/18 at 10:00 Gabapentin (Neurontin) 100 mg BID PO Last administered on 06/27/18 09:01; Start 06/25/18 at 10:00 Acetaminophen/ Hydrocodone Bitart (Lortab 5/325) 1 tab PRN Q4HRS PRN PO SEVERE PAIN; Start 06/25/18 at 09:30 Oxybutynin Chloride (Ditropan) 10 mg HS PO Last administered on 06/26/18 22:19 ; Start 06/25/18 at 21:00 Sertraline HCl (Zoloft) 50 mg DAILY PO Last administered on 06/27/18 09:00; Start 06/25/18 at 10:00 Donepezil HCl (Aricept) 10 mg QHS PO Last administered on 06/26/18 22:19; Start 06/25/18 at 21:00 Heparin Sodium (Porcine) (Heparin Sodium) 5,000 unit Q8HRS SQ Last administered on 06/27/18 06:19; Start 06/25/18 at 14:00 Non-Formulary Medication (Insulin Aspart (Novolog Flexpen)) TIDWMEALS SQ ; Start 06/25/18 at 12:00; Status UNV Insulin Glargine (Lantus) 40 units QHS SQ Last administered on 06/26/18 22:20 ; Start 06/25/18 at 21:00 Losartan Potassium (Cozaar) 100 mg DAILY PO Last administered on 06/27/18 09: 00; Start 06/25/18 at 10:00 Metolazone (Zaroxolyn) 2.5 mg DAILY PO Last administered on 06/27/18 09:00; Start 06/25/18 at 10:00 Pioglitazone HCl (Actos) 15 mg DAILY PO Last administered on 06/27/18 09:00; Start 06/25/18 at 10:00 Furosemide (Lasix) 40 mg DAILY IVP Last administered on 06/25/18at 12:54; Start 06/25/18 at 10:00; Stop 06/25/18 at 14:00; Status DC Insulin Human Lispro (HumaLOG) 0-9 UNITS TIDWMEALS SQ Last administered on 06/25at 17:42; Start 06/25/18 at 12:00 Dextrose (Dextrose 50%-Water Syringe) 12.5 gm PRN Q15MIN PRN IV SEE COMMENTS; Start 06/25/18 at 09:30 Acetaminophen (Tylenol) 500 mg PRN Q6HRS PRN PO MILD PAIN / TEMP Last administered on 06/25/18at 12:56; Start 06/25/18 at 09:30 Acetaminophen/ Codeine Phosphate (Tylenol #3) 1 tab PRN Q6HRS PRN PO MODERATE PAIN; Start 06/25/18 at 09:30 Furosemide (Lasix) 40 mg [id number] IVP Last administered on 06/26/18at 06:08; Start 06/25/18 at 18:00; Stop 06/26/18 at 17:38; Status DC Hydralazine HCl (Apresoline) 50 mg BID PO Last administered on 06/27/18 09:01 ; Start 06/25/18 at 14:00 Hydralazine HCl (Apresoline Inj) 10 mg PRN Q4HRS PRN IVP ELEVATED BP, SEE COMMENTS; Start 06/25/18 at 14:00 Isosorbide Mononitrate (Imdur) 30 mg DAILY PO Last administered on 06/27/18 09 :00; Start 06/26/18 at 09:00 Magnesium Sulfate 50 ml @ 25 mls/hr 1X ONCE IV Last administered on 06/26/18 18:20; Start 06/26/18 at 17:30; Stop 06/26/18 at 19:29; Status DC Furosemide (Lasix) 40 mg [id number] PO Last administered on 06/27/18 09:01; Start 06/27/18 at 09:00 Diclofenac Sodium (Voltaren) 1 yudy BID TP Last administered on 06/27/18 09:01 ; Start 06/26/18 at 21:00 Active Scripts Active Hydrocodone-Apap 5-325 (Hydrocodone Bit/Acetaminophen) 1 Each Tablet 1 Tab PO PRN Q4HRS PRN 7 Days Novolog Flexpen (Insulin Aspart) 100 Unit/1 Ml Insuln.pen 0 Units SQ TIDWMEALS 30 Days Reported Heparin 1,000 Unit/10 (100/ml) (Heparin Sodium,Porcine/Pf) 1,000 Unit/10 Ml Syringe 5,000 Unit SQ TID Gabapentin (Gabapentin) 100 Mg Capsule 100 Mg PO BID Metolazone 2.5 Mg Tablet 2.5 Mg PO DAILY Lasix (Furosemide) 40 Mg Tablet 40 Mg PO DAILY Oxybutynin Chloride 5 Mg Tablet 10 Mg PO HS Levemir Flextouch (Insulin Detemir) 100 Unit/1 Ml Insuln.pen 40 Unit SQ HS Pioglitazone Hcl 30 Mg Tablet 30 Mg PO DAILY Zoloft (Sertraline Hcl) 50 Mg Tablet 1 Tab PO DAILY Carvedilol (Carvedilol) 12.5 Mg Tablet 12.5 Mg PO BIDWMEALS Atorvastatin Calcium 40 Mg Tablet 40 Mg PO HS Aspirin Ec (Aspirin) 81 Mg Tablet.dr 81 Mg PO Amlodipine Besylate 10 Mg Tablet 10 Mg PO DAILY Donepezil Hcl 10 Mg Tablet 10 Mg PO HS Losartan Potassium 100 Mg Tablet 100 Mg PO DAILY Vitals/I & O Vital Sign - Last 24 Hours 06/26/18 06/26/18 06/26/18 06/26/18 15:00 15:35 18:18 19:35 Temp 98.2 99.5 98.2 99.5 Pulse 74 85 73 Resp 18 16 B/P (MAP) 146/59 (88) 130/47 (74) Pulse Ox 96 98 95 O2 Delivery Nasal Cannula Nasal Cannula Nasal Cannula O2 Flow Rate 2.0 2.0 2.0 06/26/18 06/26/18 06/26/18 06/26/18 19:53 19:55 22:18 22:37 Temp 98.6 98.6 Pulse 73 75 Resp 18 B/P (MAP) 130/47 120/61 (80) Pulse Ox 98 95 O2 Delivery Nasal Cannula Nasal Cannula Nasal Cannula O2 Flow Rate 2.0 2.0 2.0 06/27/18 06/27/18 06/27/18 06/27/18 02:05 07:00 07:44 08:00 Temp 100.6 98.9 100.6 98.9 Pulse 74 69 Resp 16 18 B/P (MAP) 118/49 (72) 170/67 (101) Pulse Ox 96 96 97 O2 Delivery Nasal Cannula Nasal Cannula Nasal Cannula Nasal Cannula O2 Flow Rate 2.0 2.0 2.0 2.0 06/27/18 06/27/18 06/27/18 06/27/18 09:00 09:00 09:00 09:01 Pulse 70 75 75 75 06/27/18 06/27/18 06/27/18 09:01 11:00 11:29 Temp 98.6 98.6 Pulse 75 64 Resp 18 B/P (MAP) 123/53 (76) Pulse Ox 98 97 O2 Delivery Nasal Cannula Nasal Cannula O2 Flow Rate 2.0 2.0 Intake and Output 06/26/18 06/26/18 06/27/18 15:00 23:00 07:00 Intake Total 100 ml 200 ml Output Total 1250 ml 600 ml Balance -1150 ml -400 ml REBA ABEL MD Jun 27, 2018 13:50
--- NOTE | 2018-06-27 14:08 | PDOC4 ---
PROCEDURE Procedure At her request,after informed consent, under aseptic skin technique,I have injected her left knee joint with 2 ml of 2% marcaine solution (0.25%) and 1 ml of depo medrol 40 mg/1 ml solution and she tolerated the procedure satisfactorily without any side effects. REBA ABEL MD Jun 27, 2018 14:08
--- NOTE | 2018-06-27 14:28 | NUR ---
Left knee injection done by Dr. Watts
--- NOTE | 2018-06-27 14:35 | PDOC ---
CARDIO Progress Notes Date and Time Date of Service 06/27/2018 Time of Evaluation 1340 Subjective Subjective: No Chest Pain, No shortness of breath, No Palpitations, Other ( feels weak today) Vitals Vitals Vital Signs Date Time Temp Pulse Resp B/P (MAP) Pulse Ox O2 Delivery O2 Flow Rate FiO2 06/27/18 11:29 97 Nasal Cannula 2.0 06/27/18 11:00 98.6 64 18 123/53 (76) 98.6 Weight Weight [ ] Input and Output Intake and Output Intake and Output 06/27/18 07:00 Intake Total 300 ml Output Total 1850 ml Balance -1550 ml Intake Oral 300 ml Output Urine Total 1850 ml Laboratory Labs Laboratory Tests Test 06/26/18 17:32 06/26/18 21:17 06/27/18 03:33 06/27/18 07:37 Glucose (Fingerstick) 136 mg/dL (70-99) 146 mg/dL (70-99) 83 mg/dL (70-99) White Blood Count 6.0 x10^3/uL (4.0-11.0) Red Blood Count 2.96 x10^6/uL (3.50-5.40) Hemoglobin 8.8 g/dL (12.0-15.5) Hematocrit 27.8 % (36.0-47.0) Mean Corpuscular Volume 94 fL (79-100) Mean Corpuscular Hemoglobin 30 pg (25-35) Mean Corpuscular Hemoglobin Concent 32 g/dL (31-37) Red Cell Distribution Width 15.3 % (11.5-14.5) Platelet Count 160 x10^3/uL (140-400) Neutrophils (%) (Auto) 66 % (31-73) Lymphocytes (%) (Auto) 18 % (24-48) Monocytes (%) (Auto) 13 % (0-9) Eosinophils (%) (Auto) 3 % (0-3) Basophils (%) (Auto) 0 % (0-3) Neutrophils # (Auto) 3.9 x10^3uL (1.8-7.7) Lymphocytes # (Auto) 1.1 x10^3/uL (1.0-4.8) Monocytes # (Auto) 0.8 x10^3/uL (0.0-1.1) Eosinophils # (Auto) 0.2 x10^3/uL (0.0-0.7) Basophils # (Auto) 0.0 x10^3/uL (0.0-0.2) Sodium Level 144 mmol/L (136-145) Potassium Level 3.4 mmol/L (3.5-5.1) Chloride Level 104 mmol/L (98-107) Carbon Dioxide Level 36 mmol/L (21-32) Anion Gap 4 (6-14) Blood Urea Nitrogen 32 mg/dL (7-20) Creatinine 1.8 mg/dL (0.6-1.0) Estimated GFR (Cockcroft-Gault) 33.3 BUN/Creatinine Ratio 18 (6-20) Glucose Level 101 mg/dL (70-99) Calcium Level 9.1 mg/dL (8.5-10.1) Total Bilirubin 0.3 mg/dL (0.2-1.0) Aspartate Amino Transf (AST/SGOT) 18 U/L (15-37) Alanine Aminotransferase (ALT/SGPT) 13 U/L (14-59) Alkaline Phosphatase 79 U/L (46-116) Total Protein 6.1 g/dL (6.4-8.2) Albumin 2.5 g/dL (3.4-5.0) Albumin/Globulin Ratio 0.7 (1.0-1.7) Test 06/27/18 09:55 06/27/18 11:19 Urine Collection Type Unknown Urine Color Yellow Urine Clarity Clear Urine pH 5.5 Urine Specific [place] 1.010 Urine Protein Negative mg/dL (NEG-TRACE) Urine Glucose (UA) Negative mg/dL (NEG) Urine Ketones (Stick) Negative mg/dL (NEG) Urine Blood Negative (NEG) Urine Nitrite Negative (NEG) Urine Bilirubin Negative (NEG) Urine Urobilinogen Dipstick 0.2 mg/dL (0.2 mg/dL) Urine Leukocyte Esterase Small (NEG) Urine RBC 6-10 /HPF (0-2) Urine WBC 11-20 /HPF (0-4) Urine Squamous Epithelial Cells Few /LPF Urine Bacteria 0 /HPF (0-FEW) Urine Hyaline Casts Occasional /HPF Glucose (Fingerstick) 101 mg/dL (70-99) Physical Exam HEENT: Neck Supple W Full Motion Chest: Symmetric LUNGS: Other (diminished bases, basilar crackles) Heart: S1S2, RRR (SR) Abdomen: Soft N/T, Other (obese) Extremities: Other (2+ bilateral LE pitting edema) Neurology: alert, oriented, follow commands Assessment Assessment 1. Acute on chronic hypoxic respiratory failure/pleural effusion: +ALEXYS and CHF 2. Acute on chronic diastolic CHF: recent EF at 55%, multifactorial. appears compensated 3. Malignant hypertension; controlled 4. DM2/HLP 5. CKD3: Cr at 1.8 6. ALEXYS/pulmonary HTN: CPAP was broken and has been fixed per sister. 7. PVD s/p right popliteal to peroneal artery bypass. stable 8. Dementia 9. Fever: T max 100.6 with possible UTI defer to PCP 10. PAFIB: new onset. burst episodes, Recommendations 1. Continue with lasix therapy. Good UOP. Consider removal or substitute for ACTOS 2. Continue BP regimen. Optimize. Continue with hydralazine/imdur. Stop coreg and will start on 100 mg toprol for her PAFIB. Continue ASA. 3. Continue Bipap/CPAP hs 4. Continue with secondary prevention 5. Follow up in 4 weeks. JACY SYED APRN Jun 27, 2018 14:35
[2018-06-27 15:00] VITALS: BP 149/59
[2018-06-27] MEDS: METOPROLOL SUCC 24HR ER 100 MG TAB.ER.24H. PO SCH (17:54)
[2018-06-27 19:00] VITALS: BP 149/70
[2018-06-27] MEDS: DONEPEZIL HCL 10 MG TABLET. PO SCH (21:21)
[2018-06-27] MEDS: ATORVASTATIN CALCIUM 40 MG TABLET. PO SCH (21:21)
[2018-06-27] MEDS: OXYBUTYNIN CHLORIDE 5 MG TABLET PO SCH (21:22)
[2018-06-27] MEDS: IRON POLYSACCHARIDE COMPLEX 150 MG CAPSULE PO SCH (21:22)
[2018-06-27] MEDS: INSULIN GLARGINE 300 UNITS/3 ML INSULN.PEN. SQ SCH (21:28)
[2018-06-27 23:00] VITALS: BP 143/60
[2018-06-28 02:55] VITALS: BP 134/52
[2018-06-28 04:16] LABS: BASO % 0 % (0-3); EOS % 0 % (0-3); HEMATOCRIT 27.6 % (36.0-47.0); HEMOGLOBIN 8.8 g/dL (12.0-15.5); LYMPH # 0.4 x10^3/uL (1.0-4.8); LYMPH % 10 % (24-48); MEAN CORPUSCULAR HEMOGLOBIN 30 pg (25-35); MEAN CORPUSCULAR HGB CONC 32 g/dL (31-37); MEAN CORPUSCULAR VOLUME 95 fL (79-100); MONO # 0.1 x10^3/uL (0.0-1.1); MONO % 2 % (0-9); NEUT # 3.9 x10^3uL (1.8-7.7); NEUT % 88 % (31-73); PLATELET COUNT 165 x10^3/uL (140-400); RED BLOOD COUNT 2.92 x10^6/uL (3.50-5.40); RED CELL DISTRIBUTION WIDTH 14.5 % (11.5-14.5); WHITE BLOOD COUNT 4.5 x10^3/uL (4.0-11.0)
[2018-06-28 05:25] LABS: ALBUMIN 2.4 g/dL (3.4-5.0); ALBUMIN/GLOBULIN RATIO 0.6 (1.0-1.7); CREATININE 1.9 mg/dL (0.6-1.0); GFR 31.3; POTASSIUM 3.5 mmol/L (3.5-5.1); TOTAL BILIRUBIN 0.3 mg/dL (0.2-1.0); TOTAL PROTEIN 6.2 g/dL (6.4-8.2)
[2018-06-28] MEDS: HEPARIN for SUB-Q USE 5,000 UNIT/ML VIAL. SQ SCH ×2 (05:50→13:06)
[2018-06-28 07:16] VITALS: BP 147/60
[2018-06-28 07:49] LABS: % BANDS 1 % (0-9); % LYMPHS 5 % (24-48); % SEGS 94 % (35-66); PLT ESTIMATE ADEQUATE (ADEQUATE)
[2018-06-28] MEDS: INSULIN LISPRO 300 UNITS/3 ML INSULN.PEN. SQ SCH ×2 (08:00→13:10)
[2018-06-28] MEDS: IPRATRPIUM/ALBUTEROL 0.5/2.5MG 3 ML NEBU. NEB SCH ×3 (08:10→15:45)
--- NOTE | 2018-06-28 08:42 | PDOC ---
PULMONARY PROGRESS NOTES Subjective patient with no increase in SOA Vitals Vital Signs Date Time Temp Pulse Resp B/P (MAP) Pulse Ox O2 Delivery O2 Flow Rate FiO2 06/28/18 07:16 97.9 56 20 147/60 (89) 97 BiPAP/CPAP 97.9 06/27/18 20:20 2.0 ROS: No Nausea, No Chest Pain, No Abdominal Pain, No Increase Cough General: Alert, No acute distress Lungs: Clear Cardiovascular: S1, S2 Abdomen: Soft, Non-tender Neuro Exam: Alert Extremities: No Edema, Other Skin: Warm Labs Laboratory Tests Test 06/26/18 10:13 06/26/18 11:02 06/26/18 13:45 06/26/18 17:32 O2 Saturation 92 % (92-99) Arterial Blood pH 7.39 (7.35-7.45) Arterial Blood pCO2 at Patient Temp 58 mmHg (35-46) Arterial Blood pO2 at Patient Temp 63 mmHg (65-108) Arterial Blood HCO3 35 mmol/L (21-28) Arterial Blood Base Excess 8 mmol/L (-3-3) FiO2 28 Glucose (Fingerstick) 92 mg/dL (70-99) 136 mg/dL (70-99) Sodium Level 144 mmol/L (136-145) Potassium Level 3.6 mmol/L (3.5-5.1) Chloride Level 103 mmol/L (98-107) Carbon Dioxide Level 36 mmol/L (21-32) Anion Gap 5 (6-14) Blood Urea Nitrogen 31 mg/dL (7-20) Creatinine 1.8 mg/dL (0.6-1.0) Estimated GFR (Cockcroft-Gault) 33.3 Glucose Level 149 mg/dL (70-99) Calcium Level 9.3 mg/dL (8.5-10.1) Magnesium Level 1.7 mg/dL (1.8-2.4) Test 06/26/18 21:17 06/27/18 03:33 06/27/18 07:37 06/27/18 09:55 Glucose (Fingerstick) 146 mg/dL (70-99) 83 mg/dL (70-99) White Blood Count 6.0 x10^3/uL (4.0-11.0) Red Blood Count 2.96 x10^6/uL (3.50-5.40) Hemoglobin 8.8 g/dL (12.0-15.5) Hematocrit 27.8 % (36.0-47.0) Mean Corpuscular Volume 94 fL (79-100) Mean Corpuscular Hemoglobin 30 pg (25-35) Mean Corpuscular Hemoglobin Concent 32 g/dL (31-37) Red Cell Distribution Width 15.3 % (11.5-14.5) Platelet Count 160 x10^3/uL (140-400) Neutrophils (%) (Auto) 66 % (31-73) Lymphocytes (%) (Auto) 18 % (24-48) Monocytes (%) (Auto) 13 % (0-9) Eosinophils (%) (Auto) 3 % (0-3) Basophils (%) (Auto) 0 % (0-3) Neutrophils # (Auto) 3.9 x10^3uL (1.8-7.7) Lymphocytes # (Auto) 1.1 x10^3/uL (1.0-4.8) Monocytes # (Auto) 0.8 x10^3/uL (0.0-1.1) Eosinophils # (Auto) 0.2 x10^3/uL (0.0-0.7) Basophils # (Auto) 0.0 x10^3/uL (0.0-0.2) Sodium Level 144 mmol/L (136-145) Potassium Level 3.4 mmol/L (3.5-5.1) Chloride Level 104 mmol/L (98-107) Carbon Dioxide Level 36 mmol/L (21-32) Anion Gap 4 (6-14) Blood Urea Nitrogen 32 mg/dL (7-20) Creatinine 1.8 mg/dL (0.6-1.0) Estimated GFR (Cockcroft-Gault) 33.3 BUN/Creatinine Ratio 18 (6-20) Glucose Level 101 mg/dL (70-99) Calcium Level 9.1 mg/dL (8.5-10.1) Total Bilirubin 0.3 mg/dL (0.2-1.0) Aspartate Amino Transf (AST/SGOT) 18 U/L (15-37) Alanine Aminotransferase (ALT/SGPT) 13 U/L (14-59) Alkaline Phosphatase 79 U/L (46-116) Total Protein 6.1 g/dL (6.4-8.2) Albumin 2.5 g/dL (3.4-5.0) Albumin/Globulin Ratio 0.7 (1.0-1.7) Urine Collection Type Unknown Urine Color Yellow Urine Clarity Clear Urine pH 5.5 Urine Specific [place] 1.010 Urine Protein Negative mg/dL (NEG-TRACE) Urine Glucose (UA) Negative mg/dL (NEG) Urine Ketones (Stick) Negative mg/dL (NEG) Urine Blood Negative (NEG) Urine Nitrite Negative (NEG) Urine Bilirubin Negative (NEG) Urine Urobilinogen Dipstick 0.2 mg/dL (0.2 mg/dL) Urine Leukocyte Esterase Small (NEG) Urine RBC 6-10 /HPF (0-2) Urine WBC 11-20 /HPF (0-4) Urine Squamous Epithelial Cells Few /LPF Urine Bacteria 0 /HPF (0-FEW) Urine Hyaline Casts Occasional /HPF Test 06/27/18 11:19 06/27/18 17:14 06/27/18 21:00 06/28/18 04:00 Glucose (Fingerstick) 101 mg/dL (70-99) 125 mg/dL (70-99) 206 mg/dL (70-99) White Blood Count 4.5 x10^3/uL (4.0-11.0) Red Blood Count 2.92 x10^6/uL (3.50-5.40) Hemoglobin 8.8 g/dL (12.0-15.5) Hematocrit 27.6 % (36.0-47.0) Mean Corpuscular Volume 95 fL (79-100) Mean Corpuscular Hemoglobin 30 pg (25-35) Mean Corpuscular Hemoglobin Concent 32 g/dL (31-37) Red Cell Distribution Width 14.5 % (11.5-14.5) Platelet Count 165 x10^3/uL (140-400) Neutrophils (%) (Auto) 88 % (31-73) Lymphocytes (%) (Auto) 10 % (24-48) Monocytes (%) (Auto) 2 % (0-9) Eosinophils (%) (Auto) 0 % (0-3) Basophils (%) (Auto) 0 % (0-3) Neutrophils # (Auto) 3.9 x10^3uL (1.8-7.7) Lymphocytes # (Auto) 0.4 x10^3/uL (1.0-4.8) Monocytes # (Auto) 0.1 x10^3/uL (0.0-1.1) Eosinophils # (Auto) 0.0 x10^3/uL (0.0-0.7) Basophils # (Auto) 0.0 x10^3/uL (0.0-0.2) Segmented Neutrophils % 94 % (35-66) Band Neutrophils % 1 % (0-9) Lymphocytes % 5 % (24-48) Platelet Estimate Adequate (ADEQUATE) Test 06/28/18 04:30 06/28/18 07:04 Sodium Level 144 mmol/L (136-145) Potassium Level 3.5 mmol/L (3.5-5.1) Chloride Level 102 mmol/L (98-107) Carbon Dioxide Level 36 mmol/L (21-32) Anion Gap 6 (6-14) Blood Urea Nitrogen 34 mg/dL (7-20) Creatinine 1.9 mg/dL (0.6-1.0) Estimated GFR (Cockcroft-Gault) 31.3 BUN/Creatinine Ratio 18 (6-20) Glucose Level 147 mg/dL (70-99) Calcium Level 9.0 mg/dL (8.5-10.1) Magnesium Level 1.9 mg/dL (1.8-2.4) Total Bilirubin 0.3 mg/dL (0.2-1.0) Aspartate Amino Transf (AST/SGOT) 22 U/L (15-37) Alanine Aminotransferase (ALT/SGPT) 18 U/L (14-59) Alkaline Phosphatase 73 U/L (46-116) Total Protein 6.2 g/dL (6.4-8.2) Albumin 2.4 g/dL (3.4-5.0) Albumin/Globulin Ratio 0.6 (1.0-1.7) Glucose (Fingerstick) 127 mg/dL (70-99) Laboratory Tests Test 06/27/18 09:55 06/27/18 11:19 06/27/18 17:14 06/27/18 21:00 Urine Collection Type Unknown Urine Color Yellow Urine Clarity Clear Urine pH 5.5 Urine Specific [place] 1.010 Urine Protein Negative mg/dL (NEG-TRACE) Urine Glucose (UA) Negative mg/dL (NEG) Urine Ketones (Stick) Negative mg/dL (NEG) Urine Blood Negative (NEG) Urine Nitrite Negative (NEG) Urine Bilirubin Negative (NEG) Urine Urobilinogen Dipstick 0.2 mg/dL (0.2 mg/dL) Urine Leukocyte Esterase Small (NEG) Urine RBC 6-10 /HPF (0-2) Urine WBC 11-20 /HPF (0-4) Urine Squamous Epithelial Cells Few /LPF Urine Bacteria 0 /HPF (0-FEW) Urine Hyaline Casts Occasional /HPF Glucose (Fingerstick) 101 mg/dL (70-99) 125 mg/dL (70-99) 206 mg/dL (70-99) Test 06/28/18 04:00 06/28/18 04:30 06/28/18 07:04 White Blood Count 4.5 x10^3/uL (4.0-11.0) Red Blood Count 2.92 x10^6/uL (3.50-5.40) Hemoglobin 8.8 g/dL (12.0-15.5) Hematocrit 27.6 % (36.0-47.0) Mean Corpuscular Volume 95 fL (79-100) Mean Corpuscular Hemoglobin 30 pg (25-35) Mean Corpuscular Hemoglobin Concent 32 g/dL (31-37) Red Cell Distribution Width 14.5 % (11.5-14.5) Platelet Count 165 x10^3/uL (140-400) Neutrophils (%) (Auto) 88 % (31-73) Lymphocytes (%) (Auto) 10 % (24-48) Monocytes (%) (Auto) 2 % (0-9) Eosinophils (%) (Auto) 0 % (0-3) Basophils (%) (Auto) 0 % (0-3) Neutrophils # (Auto) 3.9 x10^3uL (1.8-7.7) Lymphocytes # (Auto) 0.4 x10^3/uL (1.0-4.8) Monocytes # (Auto) 0.1 x10^3/uL (0.0-1.1) Eosinophils # (Auto) 0.0 x10^3/uL (0.0-0.7) Basophils # (Auto) 0.0 x10^3/uL (0.0-0.2) Segmented Neutrophils % 94 % (35-66) Band Neutrophils % 1 % (0-9) Lymphocytes % 5 % (24-48) Platelet Estimate Adequate (ADEQUATE) Sodium Level 144 mmol/L (136-145) Potassium Level 3.5 mmol/L (3.5-5.1) Chloride Level 102 mmol/L (98-107) Carbon Dioxide Level 36 mmol/L (21-32) Anion Gap 6 (6-14) Blood Urea Nitrogen 34 mg/dL (7-20) Creatinine 1.9 mg/dL (0.6-1.0) Estimated GFR (Cockcroft-Gault) 31.3 BUN/Creatinine Ratio 18 (6-20) Glucose Level 147 mg/dL (70-99) Calcium Level 9.0 mg/dL (8.5-10.1) Magnesium Level 1.9 mg/dL (1.8-2.4) Total Bilirubin 0.3 mg/dL (0.2-1.0) Aspartate Amino Transf (AST/SGOT) 22 U/L (15-37) Alanine Aminotransferase (ALT/SGPT) 18 U/L (14-59) Alkaline Phosphatase 73 U/L (46-116) Total Protein 6.2 g/dL (6.4-8.2) Albumin 2.4 g/dL (3.4-5.0) Albumin/Globulin Ratio 0.6 (1.0-1.7) Glucose (Fingerstick) 127 mg/dL (70-99) Medications Active Scripts Medications Dose Route/Sig Max Daily Dose Days Date Category Heparin 1,000 Unit/10 (100/ml) (Heparin Sodium,Porcine/Pf) 1,000 Unit/10 Ml Syringe 5,000 Unit SQ TID 06/25/18 Reported Gabapentin (Gabapentin) 100 Mg Capsule 100 Mg PO BID 06/25/18 Reported Metolazone 2.5 Mg Tablet 2.5 Mg PO DAILY 06/25/18 Reported Lasix (Furosemide) 40 Mg Tablet 40 Mg PO DAILY 06/25/18 Reported Hydrocodone-Apap 5-325 (Hydrocodone Bit/Acetaminophen) 1 Each Tablet 1 Tab PO PRN Q4HRS PRN 7 06/18/18 Rx Oxybutynin Chloride 5 Mg Tablet 10 Mg PO HS 06/12/18 Reported Levemir Flextouch (Insulin Detemir) 100 Unit/1 Ml Insuln.pen 40 Unit SQ HS 06/12/18 Reported Pioglitazone Hcl 30 Mg Tablet 30 Mg PO DAILY 06/12/18 Reported Zoloft (Sertraline Hcl) 50 Mg Tablet 1 Tab PO DAILY 06/12/18 Reported Carvedilol (Carvedilol) 12.5 Mg Tablet 12.5 Mg PO BIDWMEALS 07/21/16 Reported Atorvastatin Calcium 40 Mg Tablet 40 Mg PO HS 07/21/16 Reported Novolog Flexpen (Insulin Aspart) 100 Unit/1 Ml Insuln.pen 0 Units SQ TIDWMEALS 30 03/17/16 Rx Aspirin Ec (Aspirin) 81 Mg Tablet.dr 81 Mg PO 03/14/16 Reported Amlodipine Besylate 10 Mg Tablet 10 Mg PO DAILY 03/14/16 Reported Donepezil Hcl 10 Mg Tablet 10 Mg PO HS 03/14/16 Reported Losartan Potassium 100 Mg Tablet 100 Mg PO DAILY 07/24/13 Reported Impression . IMPRESSION: 1. Acute hypercapnic hypoxemic respiratory failure. 2. [id number] diastolic, suspect systolic heart failure. 3. Morbid obesity. 4. Obstructive sleep apnea. 5. Abnormal x-ray, compatible with congestive heart failure. 6. Generalized weakness. 7. Suspect pulmonary hypertension. 8. GENERALIZED WEAKNESS Plan . OK TO TRANSFER FOLLOW UP IN OFFICE NEEDS OUT PT SLEEP STUDY D/W ALLEN CHANEY MD Jun 28, 2018 08:42
[2018-06-28] MEDS: DICLOFENAC SODIUM 1% TOPICAL GEL 100GM TUBE. TP SCH ×2 (09:00→09:28)
[2018-06-28] MEDS: METOPROLOL SUCC 24HR ER 100 MG TAB.ER.24H. PO SCH (09:00)
--- NOTE | 2018-06-28 09:08 | PDOC ---
PROGRESS NOTES Subjective Subjective She feels better. Objective Objective Vital Signs Date Time Temp Pulse Resp B/P (MAP) Pulse Ox O2 Delivery O2 Flow Rate FiO2 06/28/18 07:16 97.9 56 20 147/60 (89) 97 BiPAP/CPAP 97.9 06/27/18 20:20 2.0 Intake and Output 06/28/18 07:00 Intake Total 100 ml Output Total 2000 ml Balance -1900 ml Intake Oral 100 ml Output Urine Total 2000 ml Physical Exam Physical Exam She is upine in bed and seems to be more comfortable and moving left lower extremity with less pain but I have not seen her weight bearing on it since I have injected her left knee.Yesterday she required 2 person maximal assistance for mobility in bed and with transfers,before injection to her knee. Assessment Assessment Problems Medical Problems: (1) Elevated troponin Status: Acute Plan Plan of Care To continue present physical and occupational therapy follow up and to rehab unit or LTAC unit or to SNF when medically stable. Comment Review of Relevant I have reviewed the following items joel (where applicable) has been applied. Labs Laboratory Tests Test 06/26/18 10:13 06/26/18 11:02 06/26/18 13:45 06/26/18 17:32 O2 Saturation 92 % (92-99) Arterial Blood pH 7.39 (7.35-7.45) Arterial Blood pCO2 at Patient Temp 58 mmHg (35-46) Arterial Blood pO2 at Patient Temp 63 mmHg (65-108) Arterial Blood HCO3 35 mmol/L (21-28) Arterial Blood Base Excess 8 mmol/L (-3-3) FiO2 28 Glucose (Fingerstick) 92 mg/dL (70-99) 136 mg/dL (70-99) Sodium Level 144 mmol/L (136-145) Potassium Level 3.6 mmol/L (3.5-5.1) Chloride Level 103 mmol/L (98-107) Carbon Dioxide Level 36 mmol/L (21-32) Anion Gap 5 (6-14) Blood Urea Nitrogen 31 mg/dL (7-20) Creatinine 1.8 mg/dL (0.6-1.0) Estimated GFR (Cockcroft-Gault) 33.3 Glucose Level 149 mg/dL (70-99) Calcium Level 9.3 mg/dL (8.5-10.1) Magnesium Level 1.7 mg/dL (1.8-2.4) Test 06/26/18 21:17 06/27/18 03:33 06/27/18 07:37 06/27/18 09:55 Glucose (Fingerstick) 146 mg/dL (70-99) 83 mg/dL (70-99) White Blood Count 6.0 x10^3/uL (4.0-11.0) Red Blood Count 2.96 x10^6/uL (3.50-5.40) Hemoglobin 8.8 g/dL (12.0-15.5) Hematocrit 27.8 % (36.0-47.0) Mean Corpuscular Volume 94 fL (79-100) Mean Corpuscular Hemoglobin 30 pg (25-35) Mean Corpuscular Hemoglobin Concent 32 g/dL (31-37) Red Cell Distribution Width 15.3 % (11.5-14.5) Platelet Count 160 x10^3/uL (140-400) Neutrophils (%) (Auto) 66 % (31-73) Lymphocytes (%) (Auto) 18 % (24-48) Monocytes (%) (Auto) 13 % (0-9) Eosinophils (%) (Auto) 3 % (0-3) Basophils (%) (Auto) 0 % (0-3) Neutrophils # (Auto) 3.9 x10^3uL (1.8-7.7) Lymphocytes # (Auto) 1.1 x10^3/uL (1.0-4.8) Monocytes # (Auto) 0.8 x10^3/uL (0.0-1.1) Eosinophils # (Auto) 0.2 x10^3/uL (0.0-0.7) Basophils # (Auto) 0.0 x10^3/uL (0.0-0.2) Sodium Level 144 mmol/L (136-145) Potassium Level 3.4 mmol/L (3.5-5.1) Chloride Level 104 mmol/L (98-107) Carbon Dioxide Level 36 mmol/L (21-32) Anion Gap 4 (6-14) Blood Urea Nitrogen 32 mg/dL (7-20) Creatinine 1.8 mg/dL (0.6-1.0) Estimated GFR (Cockcroft-Gault) 33.3 BUN/Creatinine Ratio 18 (6-20) Glucose Level 101 mg/dL (70-99) Calcium Level 9.1 mg/dL (8.5-10.1) Total Bilirubin 0.3 mg/dL (0.2-1.0) Aspartate Amino Transf (AST/SGOT) 18 U/L (15-37) Alanine Aminotransferase (ALT/SGPT) 13 U/L (14-59) Alkaline Phosphatase 79 U/L (46-116) Total Protein 6.1 g/dL (6.4-8.2) Albumin 2.5 g/dL (3.4-5.0) Albumin/Globulin Ratio 0.7 (1.0-1.7) Urine Collection Type Unknown Urine Color Yellow Urine Clarity Clear Urine pH 5.5 Urine Specific [place] 1.010 Urine Protein Negative mg/dL (NEG-TRACE) Urine Glucose (UA) Negative mg/dL (NEG) Urine Ketones (Stick) Negative mg/dL (NEG) Urine Blood Negative (NEG) Urine Nitrite Negative (NEG) Urine Bilirubin Negative (NEG) Urine Urobilinogen Dipstick 0.2 mg/dL (0.2 mg/dL) Urine Leukocyte Esterase Small (NEG) Urine RBC 6-10 /HPF (0-2) Urine WBC 11-20 /HPF (0-4) Urine Squamous Epithelial Cells Few /LPF Urine Bacteria 0 /HPF (0-FEW) Urine Hyaline Casts Occasional /HPF Test 06/27/18 11:19 06/27/18 17:14 06/27/18 21:00 06/28/18 04:00 Glucose (Fingerstick) 101 mg/dL (70-99) 125 mg/dL (70-99) 206 mg/dL (70-99) White Blood Count 4.5 x10^3/uL (4.0-11.0) Red Blood Count 2.92 x10^6/uL (3.50-5.40) Hemoglobin 8.8 g/dL (12.0-15.5) Hematocrit 27.6 % (36.0-47.0) Mean Corpuscular Volume 95 fL (79-100) Mean Corpuscular Hemoglobin 30 pg (25-35) Mean Corpuscular Hemoglobin Concent 32 g/dL (31-37) Red Cell Distribution Width 14.5 % (11.5-14.5) Platelet Count 165 x10^3/uL (140-400) Neutrophils (%) (Auto) 88 % (31-73) Lymphocytes (%) (Auto) 10 % (24-48) Monocytes (%) (Auto) 2 % (0-9) Eosinophils (%) (Auto) 0 % (0-3) Basophils (%) (Auto) 0 % (0-3) Neutrophils # (Auto) 3.9 x10^3uL (1.8-7.7) Lymphocytes # (Auto) 0.4 x10^3/uL (1.0-4.8) Monocytes # (Auto) 0.1 x10^3/uL (0.0-1.1) Eosinophils # (Auto) 0.0 x10^3/uL (0.0-0.7) Basophils # (Auto) 0.0 x10^3/uL (0.0-0.2) Segmented Neutrophils % 94 % (35-66) Band Neutrophils % 1 % (0-9) Lymphocytes % 5 % (24-48) Platelet Estimate Adequate (ADEQUATE) Test 06/28/18 04:30 06/28/18 07:04 Sodium Level 144 mmol/L (136-145) Potassium Level 3.5 mmol/L (3.5-5.1) Chloride Level 102 mmol/L (98-107) Carbon Dioxide Level 36 mmol/L (21-32) Anion Gap 6 (6-14) Blood Urea Nitrogen 34 mg/dL (7-20) Creatinine 1.9 mg/dL (0.6-1.0) Estimated GFR (Cockcroft-Gault) 31.3 BUN/Creatinine Ratio 18 (6-20) Glucose Level 147 mg/dL (70-99) Calcium Level 9.0 mg/dL (8.5-10.1) Magnesium Level 1.9 mg/dL (1.8-2.4) Total Bilirubin 0.3 mg/dL (0.2-1.0) Aspartate Amino Transf (AST/SGOT) 22 U/L (15-37) Alanine Aminotransferase (ALT/SGPT) 18 U/L (14-59) Alkaline Phosphatase 73 U/L (46-116) Total Protein 6.2 g/dL (6.4-8.2) Albumin 2.4 g/dL (3.4-5.0) Albumin/Globulin Ratio 0.6 (1.0-1.7) Glucose (Fingerstick) 127 mg/dL (70-99) Laboratory Tests Test 06/27/18 09:55 06/27/18 11:19 06/27/18 17:14 06/27/18 21:00 Urine Collection Type Unknown Urine Color Yellow Urine Clarity Clear Urine pH 5.5 Urine Specific [place] 1.010 Urine Protein Negative mg/dL (NEG-TRACE) Urine Glucose (UA) Negative mg/dL (NEG) Urine Ketones (Stick) Negative mg/dL (NEG) Urine Blood Negative (NEG) Urine Nitrite Negative (NEG) Urine Bilirubin Negative (NEG) Urine Urobilinogen Dipstick 0.2 mg/dL (0.2 mg/dL) Urine Leukocyte Esterase Small (NEG) Urine RBC 6-10 /HPF (0-2) Urine WBC 11-20 /HPF (0-4) Urine Squamous Epithelial Cells Few /LPF Urine Bacteria 0 /HPF (0-FEW) Urine Hyaline Casts Occasional /HPF Glucose (Fingerstick) 101 mg/dL (70-99) 125 mg/dL (70-99) 206 mg/dL (70-99) Test 06/28/18 04:00 06/28/18 04:30 06/28/18 07:04 White Blood Count 4.5 x10^3/uL (4.0-11.0) Red Blood Count 2.92 x10^6/uL (3.50-5.40) Hemoglobin 8.8 g/dL (12.0-15.5) Hematocrit 27.6 % (36.0-47.0) Mean Corpuscular Volume 95 fL (79-100) Mean Corpuscular Hemoglobin 30 pg (25-35) Mean Corpuscular Hemoglobin Concent 32 g/dL (31-37) Red Cell Distribution Width 14.5 % (11.5-14.5) Platelet Count 165 x10^3/uL (140-400) Neutrophils (%) (Auto) 88 % (31-73) Lymphocytes (%) (Auto) 10 % (24-48) Monocytes (%) (Auto) 2 % (0-9) Eosinophils (%) (Auto) 0 % (0-3) Basophils (%) (Auto) 0 % (0-3) Neutrophils # (Auto) 3.9 x10^3uL (1.8-7.7) Lymphocytes # (Auto) 0.4 x10^3/uL (1.0-4.8) Monocytes # (Auto) 0.1 x10^3/uL (0.0-1.1) Eosinophils # (Auto) 0.0 x10^3/uL (0.0-0.7) Basophils # (Auto) 0.0 x10^3/uL (0.0-0.2) Segmented Neutrophils % 94 % (35-66) Band Neutrophils % 1 % (0-9) Lymphocytes % 5 % (24-48) Platelet Estimate Adequate (ADEQUATE) Sodium Level 144 mmol/L (136-145) Potassium Level 3.5 mmol/L (3.5-5.1) Chloride Level 102 mmol/L (98-107) Carbon Dioxide Level 36 mmol/L (21-32) Anion Gap 6 (6-14) Blood Urea Nitrogen 34 mg/dL (7-20) Creatinine 1.9 mg/dL (0.6-1.0) Estimated GFR (Cockcroft-Gault) 31.3 BUN/Creatinine Ratio 18 (6-20) Glucose Level 147 mg/dL (70-99) Calcium Level 9.0 mg/dL (8.5-10.1) Magnesium Level 1.9 mg/dL (1.8-2.4) Total Bilirubin 0.3 mg/dL (0.2-1.0) Aspartate Amino Transf (AST/SGOT) 22 U/L (15-37) Alanine Aminotransferase (ALT/SGPT) 18 U/L (14-59) Alkaline Phosphatase 73 U/L (46-116) Total Protein 6.2 g/dL (6.4-8.2) Albumin 2.4 g/dL (3.4-5.0) Albumin/Globulin Ratio 0.6 (1.0-1.7) Glucose (Fingerstick) 127 mg/dL (70-99) Medications Current Medications Albuterol/ Ipratropium (Duoneb) 3 ml 1X ONCE NEB Last administered on at 05:57; Start 06/25/18 at 06:00; Stop 06/25/18 at 06:01; Status DC Carvedilol (Coreg) 12.5 mg 1X ONCE PO Last administered on 06/25/18 06:25; Start 06/25/18 at 06:15; Stop 06/25/18 at 06:16; Status DC Amlodipine Besylate (Norvasc) 10 mg 1X ONCE PO Last administered on 06/25/18 06:25; Start 06/25/18 at 06:15; Stop 06/25/18 at 06:16; Status DC Losartan Potassium (Cozaar) 100 mg 1X ONCE PO Last administered on 06/25/18 06:25; Start 06/25/18 at 06:15; Stop 06/25/18 at 06:16; Status DC Furosemide (Lasix) 40 mg 1X ONCE IVP Last administered on 06/25/18 06:15; Start 06/25/18 at 06:15; Stop 06/25/18 at 06:16; Status DC Furosemide (Lasix) 40 mg STK-MED ONCE .ROUTE ; Start 06/25/18 at 06:14; Stop 05/01 at 06:15; Status DC Hydralazine HCl (Apresoline Inj) 10 mg 1X ONCE IVP Last administered on at 07:46; Start 06/25/18 at 07:15; Stop 06/25/18 at 07:16; Status DC Hydralazine HCl (Apresoline Inj) 20 mg 1X ONCE IVP Last administered on at 08:16; Start 06/25/18 at 08:15; Stop 06/25/18 at 08:16; Status DC Albuterol/ Ipratropium (Duoneb) 3 ml RTQID NEB Last administered on 06/27/18at 20:18; Start 06/25/18 at 12:00 Amlodipine Besylate (Norvasc) 10 mg DAILY PO Last administered on 06/27/18 09: 01; Start 06/25/18 at 10:00 Aspirin (Ecotrin) 81 mg DAILY PO Last administered on 06/27/18at 08:59; Start at 10:00 Atorvastatin Calcium (Lipitor) 40 mg HS PO Last administered on 06/27/18 21:21 ; Start 06/25/18 at 21:00 Carvedilol (Coreg) 12.5 mg BIDWMEALS PO Last administered on 06/27/18 09:00; Start 06/25/18 at 10:00; Stop 06/27/18 at 15:55; Status DC Gabapentin (Neurontin) 100 mg BID PO Last administered on 06/27/18 21:21; Start 06/25/18 at 10:00 Acetaminophen/ Hydrocodone Bitart (Lortab 5/325) 1 tab PRN Q4HRS PRN PO SEVERE PAIN; Start 06/25/18 at 09:30 Oxybutynin Chloride (Ditropan) 10 mg HS PO Last administered on 06/27/18 21:22 ; Start 06/25/18 at 21:00 Sertraline HCl (Zoloft) 50 mg DAILY PO Last administered on 06/27/18 09:00; Start 06/25/18 at 10:00 Donepezil HCl (Aricept) 10 mg QHS PO Last administered on 06/27/18 21:21; Start 06/25/18 at 21:00 Heparin Sodium (Porcine) (Heparin Sodium) 5,000 unit Q8HRS SQ Last administered on 06/28/18 05:50; Start 06/25/18 at 14:00 Non-Formulary Medication (Insulin Aspart (Novolog Flexpen)) TIDWMEALS SQ ; Start 06/25/18 at 12:00; Status UNV Insulin Glargine (Lantus) 40 units QHS SQ Last administered on 06/27/18 21:28 ; Start 06/25/18 at 21:00 Losartan Potassium (Cozaar) 100 mg DAILY PO Last administered on 06/27/18 09: 00; Start 06/25/18 at 10:00; Stop 06/28/18 at 08:30; Status DC Metolazone (Zaroxolyn) 2.5 mg DAILY PO Last administered on 06/27/18 09:00; Start 06/25/18 at 10:00 Pioglitazone HCl (Actos) 15 mg DAILY PO Last administered on 06/27/18 09:00; Start 06/25/18 at 10:00 Furosemide (Lasix) 40 mg DAILY IVP Last administered on 06/25/18at 12:54; Start 06/25/18 at 10:00; Stop 06/25/18 at 14:00; Status DC Insulin Human Lispro (HumaLOG) 0-9 UNITS TIDWMEALS SQ Last administered on 06/25at 17:42; Start 06/25/18 at 12:00 Dextrose (Dextrose 50%-Water Syringe) 12.5 gm PRN Q15MIN PRN IV SEE COMMENTS; Start 06/25/18 at 09:30 Acetaminophen (Tylenol) 500 mg PRN Q6HRS PRN PO MILD PAIN / TEMP Last administered on 06/25/18at 12:56; Start 06/25/18 at 09:30 Acetaminophen/ Codeine Phosphate (Tylenol #3) 1 tab PRN Q6HRS PRN PO MODERATE PAIN; Start 06/25/18 at 09:30 Furosemide (Lasix) 40 mg [id number] IVP Last administered on 06/26/18at 06:08; Start 06/25/18 at 18:00; Stop 06/26/18 at 17:38; Status DC Hydralazine HCl (Apresoline) 50 mg BID PO Last administered on 06/27/18 21:22 ; Start 06/25/18 at 14:00 Hydralazine HCl (Apresoline Inj) 10 mg PRN Q4HRS PRN IVP ELEVATED BP, SEE COMMENTS; Start 06/25/18 at 14:00 Isosorbide Mononitrate (Imdur) 30 mg DAILY PO Last administered on 06/27/18at 09 :00; Start 06/26/18 at 09:00 Magnesium Sulfate 50 ml @ 25 mls/hr 1X ONCE IV Last administered on 06/26/18at 18:20; Start 06/26/18 at 17:30; Stop 06/26/18 at 19:29; Status DC Furosemide (Lasix) 40 mg [id number] PO Last administered on 06/27/18 14:16; Start 06/27/18 at 09:00 Diclofenac Sodium (Voltaren) 1 yudy BID TP Last administered on 06/27/18 21:22 ; Start 06/26/18 at 21:00 Methylprednisolone Acetate (DEPO-Medrol 40MG VIAL) 40 mg 1X ONCE IM Last administered on 06/27/18at 13:45; Start 06/27/18 at 13:45; Stop 06/27/18 at 13:48 ; Status DC Bupivacaine HCl (Sensorcaine-Mpf 0.25%) 10 ml 1X ONCE IJ Last administered on 06/27/18at 13:45; Start 06/27/18 at 13:45; Stop 06/27/18 at 13:48; Status DC Polysaccharide Iron Complex (Niferex 150) 150 mg BID PO Last administered on at 21:22; Start 06/27/18 at 21:00 Metoprolol Succinate (Toprol Xl) 100 mg DAILY PO Last administered on at 17:54; Start 06/27/18 at 17:00 Active Scripts Active Hydrocodone-Apap 5-325 (Hydrocodone Bit/Acetaminophen) 1 Each Tablet 1 Tab PO PRN Q4HRS PRN 7 Days Novolog Flexpen (Insulin Aspart) 100 Unit/1 Ml Insuln.pen 0 Units SQ TIDWMEALS 30 Days Reported Heparin 1,000 Unit/10 (100/ml) (Heparin Sodium,Porcine/Pf) 1,000 Unit/10 Ml Syringe 5,000 Unit SQ TID Gabapentin (Gabapentin) 100 Mg Capsule 100 Mg PO BID Metolazone 2.5 Mg Tablet 2.5 Mg PO DAILY Lasix (Furosemide) 40 Mg Tablet 40 Mg PO DAILY Oxybutynin Chloride 5 Mg Tablet 10 Mg PO HS Levemir Flextouch (Insulin Detemir) 100 Unit/1 Ml Insuln.pen 40 Unit SQ HS Pioglitazone Hcl 30 Mg Tablet 30 Mg PO DAILY Zoloft (Sertraline Hcl) 50 Mg Tablet 1 Tab PO DAILY Carvedilol (Carvedilol) 12.5 Mg Tablet 12.5 Mg PO BIDWMEALS Atorvastatin Calcium 40 Mg Tablet 40 Mg PO HS Aspirin Ec (Aspirin) 81 Mg Tablet.dr 81 Mg PO Amlodipine Besylate 10 Mg Tablet 10 Mg PO DAILY Donepezil Hcl 10 Mg Tablet 10 Mg PO HS Losartan Potassium 100 Mg Tablet 100 Mg PO DAILY Vitals/I & O Vital Sign - Last 24 Hours 06/27/18 06/27/18 06/27/18 06/27/18 11:00 11:29 15:00 15:31 Temp 98.6 98.5 98.6 98.5 Pulse 64 65 Resp 18 18 B/P (MAP) 123/53 (76) 149/59 (89) Pulse Ox 98 97 93 93 O2 Delivery Nasal Cannula Nasal Cannula Nasal Cannula Nasal Cannula O2 Flow Rate 2.0 2.0 2.0 2.0 06/27/18 06/27/18 06/27/18 06/27/18 17:54 19:00 19:20 20:20 Temp 98.7 98.7 Pulse 60 68 Resp 18 B/P (MAP) 149/70 (96) Pulse Ox 97 92 O2 Delivery Nasal Cannula Nasal Cannula Nasal Cannula O2 Flow Rate 2.0 2.0 2.0 06/27/18 06/27/18 06/28/18 06/28/18 21:22 23:00 00:06 01:31 Temp 98.4 98.4 Pulse 74 61 Resp 20 B/P (MAP) 149/70 143/60 (87) Pulse Ox 100 99 97 O2 Delivery BiPAP/CPAP BiPAP/CPAP BiPAP/CPAP 06/28/18 06/28/18 06/28/18 02:55 03:58 07:16 Temp 98.3 97.9 98.3 97.9 Pulse 55 56 Resp 20 20 B/P (MAP) 134/52 (79) 147/60 (89) Pulse Ox 99 97 97 O2 Delivery BiPAP/CPAP BiPAP/CPAP BiPAP/CPAP Intake and Output 06/27/18 06/27/18 06/28/18 15:00 23:00 07:00 Intake Total 100 ml 0 ml Output Total 1250 ml 750 ml Balance -1150 ml -750 ml REBA ABEL MD Jun 28, 2018 09:08
[2018-06-28] MEDS: ASPIRIN ENTERIC COATED 81 MG TABLET.DR. PO SCH (09:26)
[2018-06-28] MEDS: GABAPENTIN 100 MG CAPSULE. PO SCH (09:26)
[2018-06-28] MEDS: metOLazone 2.5 MG TABLET PO SCH (09:26)
[2018-06-28] MEDS: SERTRALINE 50 MG TABLET. PO SCH (09:27)
[2018-06-28] MEDS: ISOSORBIDE MONONITRATE ER 30 MG TAB.ER.24H PO SCH (09:27)
[2018-06-28] MEDS: IRON POLYSACCHARIDE COMPLEX 150 MG CAPSULE PO SCH (09:27)
[2018-06-28] MEDS: PIOGLITAZONE 15 MG TABLET. PO SCH (09:27)
[2018-06-28] MEDS: amLODIPine BESYLATE 10 MG TABLET PO SCH (09:28)
[2018-06-28] MEDS: FUROSEMIDE 40 MG TABLET. PO SCH ×2 (09:28→13:08)
--- NOTE | 2018-06-28 10:11 | DISCH ---
DISCHARGE DISCHARGE INFORMATION: FINAL DIAGNOSIS Problems Medical Problems: (1) Elevated troponin Status: Acute CONDITION ON DISCHARGE: Stable CODE STATUS: Code Status: Full LONG TERM: SNF STAY <30 DAYS: Yes HOSPICE: HOSPICE: No HOSPICE EVAL & TREAT: No LTAC: ADMIT TO LTAC: No POST DISCHARGE ORDERS: ACTIVITY ORDERS: Activity as tolerated, Bedrest today WEIGHT BEARING STATUS: As tolerated BATHING ORDERS: Shower-keep dressing dry, No Tub Bath until see DIET AFTER DISCHARGE: Cardiac WOUND/INCISION CARE: Other, see below CHECKS AFTER DISCHARGE: CHECKS AFTER DISCHARGE: Check blood press - daily, Check blood sugar, ac/hs TREATMENT/EQUIPMENT ORDERS: ADAPTIVE EQUIPMENT NEEDED: Four wheeled walker RESPIRATORY EQUIPMENT NEEDED: BiPAP Physical Therapy For: Evalulation/Treatment Occupational Therapy For: Evaluation/Treatment DISCHARGE MEDICATIONS: Home Meds Active Scripts Hydrocodone Bit/Acetaminophen (HYDROCODONE-APAP 5-325 ) 1 Each Tablet, 1 TAB PO PRN Q4HRS PRN for MILD PAIN for 7 Days, #42 CAP 0 Refills Prov:ZAY MONTEMAYOR MD 06/18/18 Insulin Aspart (NOVOLOG FLEXPEN) 100 Unit/1 Ml Insuln.pen, 0 UNITS SQ TIDWMEALS for 30 Days, LIQUID 5 Refills Prov:ДМИТРИЙ RILEY MD 03/17/16 Reported Medications Heparin Sodium,Porcine/Pf (Heparin 1,000 Unit/10 (100/ml)) 1,000 Unit/10 Ml Syringe, 5000 UNIT SQ TID, SYR 06/25/18 Gabapentin (GABAPENTIN ) 100 Mg Capsule, 100 MG PO BID for NEUROGENIC PAIN, CAP 06/25/18 Metolazone (METOLAZONE) 2.5 Mg Tablet, 2.5 MG PO DAILY, #30 TAB 0 Refills 06/25/18 Furosemide (LASIX) 40 Mg Tablet, 40 MG PO DAILY, TAB 06/25/18 Oxybutynin Chloride (OXYBUTYNIN CHLORIDE) 5 Mg Tablet, 10 MG PO HS, TAB 06/12/18 Insulin Detemir (Levemir Flextouch) 100 Unit/1 Ml Insuln.pen, 40 UNIT SQ HS, SYR 06/12/18 Pioglitazone Hcl (PIOGLITAZONE HCL) 30 Mg Tablet, 30 MG PO DAILY, TAB 06/12/18 Sertraline Hcl (ZOLOFT) 50 Mg Tablet, 1 TAB PO DAILY, #30 TAB 2 Refills 06/12/18 Carvedilol (CARVEDILOL ) 12.5 Mg Tablet, 12.5 MG PO BIDWMEALS, TAB 07/21/16 Atorvastatin Calcium (ATORVASTATIN CALCIUM) 40 Mg Tablet, 40 MG PO HS for FOR CHOLESTEROL, #30 TAB 0 Refills 07/21/16 Aspirin (ASPIRIN EC) 81 Mg Tablet.dr, 81 MG PO 03/14/16 Amlodipine Besylate (AMLODIPINE BESYLATE) 10 Mg Tablet, 10 MG PO DAILY, TAB 03/14/16 Donepezil Hcl (DONEPEZIL HCL) 10 Mg Tablet, 10 MG PO HS, TAB 03/14/16 Losartan Potassium (LOSARTAN POTASSIUM) 100 Mg Tablet, 100 MG PO DAILY 07/24/13 MARIFER BOLAÑOS III DO Jun 28, 2018 10:11
--- NOTE | 2018-06-28 10:33 | NUR ---
SS following up with discharge planning. SS phoned and faxed discharge orders to [facility], ; fax [phone]. [facility] contacted and reported that pt will be transported at 1100 for return to [facility]. Pt, pt's RN, and pt's sister notified.
--- NOTE | 2018-06-28 10:40 | NUR ---
SS following up with discharge planning. SS received phone contact from [facility] stating they needed to cancel the 1100 transport time and would need to schedule transport for a later time due to need for insurance auth from [place]. [facility] reported they would contact SS once authorization received. SS will await insurance authorization and will proceed accordingly with transport time.
--- NOTE | 2018-06-28 10:44 | RAD ---
Portable chest, 06/28/2018: HISTORY: Congestive heart failure Comparison is made to a study from 06/26/2018. The heart is enlarged. Perihilar opacities have largely cleared with better definition of the underlying vasculature. There is a residual left basilar opacity obscuring the hemidiaphragm compatible with pleural fluid and infiltrate. No new abnormality is detected. IMPRESSION: Resolving congestive heart failure. Electronically signed by: Msaon Lebron MD (06/28/2018 10:41 AM) [facility]
--- NOTE | 2018-06-28 11:42 | PDOC ---
PROGRESS NOTES Chief Complaint Chief Complaint Shortness of Breath during Rehab History of Present Illness History of Present Illness Pt seen and examined in her room. Today she was laying in her bed. Alert, oriented, and in NAD. She complains of a cough. Discharge today to [facility]. Vitals Vitals Vital Signs Date Time Temp Pulse Resp B/P (MAP) Pulse Ox O2 Delivery O2 Flow Rate FiO2 06/28/18 09:28 56 147/60 06/28/18 09:21 100 BiPAP/CPAP 06/28/18 08:00 2.0 06/28/18 07:16 97.9 20 97.9 Physical Exam General: Cooperative, No acute distress, Other (drowsy) Heart: Regular rate (SR), Other (distant heart sounds) Lungs: Clear Abdomen: Soft, No tenderness, Other (obese, normoactive bowel sounds, nontender ) Extremities: No cyanosis, Other (3+ bilateral LE pitting edema) Skin: No breakdown, No significant lesion Labs LABS Laboratory Tests Test 06/27/18 17:14 06/27/18 21:00 06/28/18 04:00 06/28/18 04:30 Glucose (Fingerstick) 125 mg/dL (70-99) 206 mg/dL (70-99) White Blood Count 4.5 x10^3/uL (4.0-11.0) Red Blood Count 2.92 x10^6/uL (3.50-5.40) Hemoglobin 8.8 g/dL (12.0-15.5) Hematocrit 27.6 % (36.0-47.0) Mean Corpuscular Volume 95 fL (79-100) Mean Corpuscular Hemoglobin 30 pg (25-35) Mean Corpuscular Hemoglobin Concent 32 g/dL (31-37) Red Cell Distribution Width 14.5 % (11.5-14.5) Platelet Count 165 x10^3/uL (140-400) Neutrophils (%) (Auto) 88 % (31-73) Lymphocytes (%) (Auto) 10 % (24-48) Monocytes (%) (Auto) 2 % (0-9) Eosinophils (%) (Auto) 0 % (0-3) Basophils (%) (Auto) 0 % (0-3) Neutrophils # (Auto) 3.9 x10^3uL (1.8-7.7) Lymphocytes # (Auto) 0.4 x10^3/uL (1.0-4.8) Monocytes # (Auto) 0.1 x10^3/uL (0.0-1.1) Eosinophils # (Auto) 0.0 x10^3/uL (0.0-0.7) Basophils # (Auto) 0.0 x10^3/uL (0.0-0.2) Segmented Neutrophils % 94 % (35-66) Band Neutrophils % 1 % (0-9) Lymphocytes % 5 % (24-48) Platelet Estimate Adequate (ADEQUATE) Sodium Level 144 mmol/L (136-145) Potassium Level 3.5 mmol/L (3.5-5.1) Chloride Level 102 mmol/L (98-107) Carbon Dioxide Level 36 mmol/L (21-32) Anion Gap 6 (6-14) Blood Urea Nitrogen 34 mg/dL (7-20) Creatinine 1.9 mg/dL (0.6-1.0) Estimated GFR (Cockcroft-Gault) 31.3 BUN/Creatinine Ratio 18 (6-20) Glucose Level 147 mg/dL (70-99) Calcium Level 9.0 mg/dL (8.5-10.1) Magnesium Level 1.9 mg/dL (1.8-2.4) Total Bilirubin 0.3 mg/dL (0.2-1.0) Aspartate Amino Transf (AST/SGOT) 22 U/L (15-37) Alanine Aminotransferase (ALT/SGPT) 18 U/L (14-59) Alkaline Phosphatase 73 U/L (46-116) Total Protein 6.2 g/dL (6.4-8.2) Albumin 2.4 g/dL (3.4-5.0) Albumin/Globulin Ratio 0.6 (1.0-1.7) Test 06/28/18 07:04 06/28/18 11:07 Glucose (Fingerstick) 127 mg/dL (70-99) 181 mg/dL (70-99) Review of Systems Review of Systems general: no acute distress, no fever, no chills cardiac: no arrhythmia, no murmur, no palpitations, no chest pain respiratory: +cough, no difficulty breathing, no shortness of air. Assessment and Plan Assessmemt and Plan Assessment 1. Hypertensive Emergency 2. Congestive Heart Failure, Preserved EF (56% - last echo) 3. Acute Respiratory Failure 4. Elevated BNP 5. T2DM - on Insulin 6. Obesity (BMI 46.1) 7. ALEXYS - on CPAP 8. CKD, stage 3 9. Dyslipidemia. 10. PVD s/p right popliteral to peroneal artery bypass. Plan 1. IV Lasix 2. cardiac monitoring 3. serial enzymes 4. cardiology following 5. antihypertensive therapy 6. O2, BiPaP as needed 7. PT/OT 8. monitor labs 9. home meds D/C today to [facility]. Comment Review of Relevant I have reviewed the following items joel (where applicable) has been applied. Labs Laboratory Tests Test 06/26/18 13:45 06/26/18 17:32 06/26/18 21:17 06/27/18 03:33 Sodium Level 144 mmol/L (136-145) 144 mmol/L (136-145) Potassium Level 3.6 mmol/L (3.5-5.1) 3.4 mmol/L (3.5-5.1) Chloride Level 103 mmol/L (98-107) 104 mmol/L (98-107) Carbon Dioxide Level 36 mmol/L (21-32) 36 mmol/L (21-32) Anion Gap 5 (6-14) 4 (6-14) Blood Urea Nitrogen 31 mg/dL (7-20) 32 mg/dL (7-20) Creatinine 1.8 mg/dL (0.6-1.0) 1.8 mg/dL (0.6-1.0) Estimated GFR (Cockcroft-Gault) 33.3 33.3 Glucose Level 149 mg/dL (70-99) 101 mg/dL (70-99) Calcium Level 9.3 mg/dL (8.5-10.1) 9.1 mg/dL (8.5-10.1) Magnesium Level 1.7 mg/dL (1.8-2.4) Glucose (Fingerstick) 136 mg/dL (70-99) 146 mg/dL (70-99) White Blood Count 6.0 x10^3/uL (4.0-11.0) Red Blood Count 2.96 x10^6/uL (3.50-5.40) Hemoglobin 8.8 g/dL (12.0-15.5) Hematocrit 27.8 % (36.0-47.0) Mean Corpuscular Volume 94 fL (79-100) Mean Corpuscular Hemoglobin 30 pg (25-35) Mean Corpuscular Hemoglobin Concent 32 g/dL (31-37) Red Cell Distribution Width 15.3 % (11.5-14.5) Platelet Count 160 x10^3/uL (140-400) Neutrophils (%) (Auto) 66 % (31-73) Lymphocytes (%) (Auto) 18 % (24-48) Monocytes (%) (Auto) 13 % (0-9) Eosinophils (%) (Auto) 3 % (0-3) Basophils (%) (Auto) 0 % (0-3) Neutrophils # (Auto) 3.9 x10^3uL (1.8-7.7) Lymphocytes # (Auto) 1.1 x10^3/uL (1.0-4.8) Monocytes # (Auto) 0.8 x10^3/uL (0.0-1.1) Eosinophils # (Auto) 0.2 x10^3/uL (0.0-0.7) Basophils # (Auto) 0.0 x10^3/uL (0.0-0.2) BUN/Creatinine Ratio 18 (6-20) Total Bilirubin 0.3 mg/dL (0.2-1.0) Aspartate Amino Transf (AST/SGOT) 18 U/L (15-37) Alanine Aminotransferase (ALT/SGPT) 13 U/L (14-59) Alkaline Phosphatase 79 U/L (46-116) Total Protein 6.1 g/dL (6.4-8.2) Albumin 2.5 g/dL (3.4-5.0) Albumin/Globulin Ratio 0.7 (1.0-1.7) Test 06/27/18 07:37 06/27/18 09:55 06/27/18 11:19 06/27/18 17:14 Glucose (Fingerstick) 83 mg/dL (70-99) 101 mg/dL (70-99) 125 mg/dL (70-99) Urine Collection Type Unknown Urine Color Yellow Urine Clarity Clear Urine pH 5.5 Urine Specific [place] 1.010 Urine Protein Negative mg/dL (NEG-TRACE) Urine Glucose (UA) Negative mg/dL (NEG) Urine Ketones (Stick) Negative mg/dL (NEG) Urine Blood Negative (NEG) Urine Nitrite Negative (NEG) Urine Bilirubin Negative (NEG) Urine Urobilinogen Dipstick 0.2 mg/dL (0.2 mg/dL) Urine Leukocyte Esterase Small (NEG) Urine RBC 6-10 /HPF (0-2) Urine WBC 11-20 /HPF (0-4) Urine Squamous Epithelial Cells Few /LPF Urine Bacteria 0 /HPF (0-FEW) Urine Hyaline Casts Occasional /HPF Test 06/27/18 21:00 06/28/18 04:00 06/28/18 04:30 06/28/18 07:04 Glucose (Fingerstick) 206 mg/dL (70-99) 127 mg/dL (70-99) White Blood Count 4.5 x10^3/uL (4.0-11.0) Red Blood Count 2.92 x10^6/uL (3.50-5.40) Hemoglobin 8.8 g/dL (12.0-15.5) Hematocrit 27.6 % (36.0-47.0) Mean Corpuscular Volume 95 fL (79-100) Mean Corpuscular Hemoglobin 30 pg (25-35) Mean Corpuscular Hemoglobin Concent 32 g/dL (31-37) Red Cell Distribution Width 14.5 % (11.5-14.5) Platelet Count 165 x10^3/uL (140-400) Neutrophils (%) (Auto) 88 % (31-73) Lymphocytes (%) (Auto) 10 % (24-48) Monocytes (%) (Auto) 2 % (0-9) Eosinophils (%) (Auto) 0 % (0-3) Basophils (%) (Auto) 0 % (0-3) Neutrophils # (Auto) 3.9 x10^3uL (1.8-7.7) Lymphocytes # (Auto) 0.4 x10^3/uL (1.0-4.8) Monocytes # (Auto) 0.1 x10^3/uL (0.0-1.1) Eosinophils # (Auto) 0.0 x10^3/uL (0.0-0.7) Basophils # (Auto) 0.0 x10^3/uL (0.0-0.2) Segmented Neutrophils % 94 % (35-66) Band Neutrophils % 1 % (0-9) Lymphocytes % 5 % (24-48) Platelet Estimate Adequate (ADEQUATE) Sodium Level 144 mmol/L (136-145) Potassium Level 3.5 mmol/L (3.5-5.1) Chloride Level 102 mmol/L (98-107) Carbon Dioxide Level 36 mmol/L (21-32) Anion Gap 6 (6-14) Blood Urea Nitrogen 34 mg/dL (7-20) Creatinine 1.9 mg/dL (0.6-1.0) Estimated GFR (Cockcroft-Gault) 31.3 BUN/Creatinine Ratio 18 (6-20) Glucose Level 147 mg/dL (70-99) Calcium Level 9.0 mg/dL (8.5-10.1) Magnesium Level 1.9 mg/dL (1.8-2.4) Total Bilirubin 0.3 mg/dL (0.2-1.0) Aspartate Amino Transf (AST/SGOT) 22 U/L (15-37) Alanine Aminotransferase (ALT/SGPT) 18 U/L (14-59) Alkaline Phosphatase 73 U/L (46-116) Total Protein 6.2 g/dL (6.4-8.2) Albumin 2.4 g/dL (3.4-5.0) Albumin/Globulin Ratio 0.6 (1.0-1.7) Test 06/28/18 11:07 Glucose (Fingerstick) 181 mg/dL (70-99) Laboratory Tests Test 06/27/18 17:14 06/27/18 21:00 06/28/18 04:00 06/28/18 04:30 Glucose (Fingerstick) 125 mg/dL (70-99) 206 mg/dL (70-99) White Blood Count 4.5 x10^3/uL (4.0-11.0) Red Blood Count 2.92 x10^6/uL (3.50-5.40) Hemoglobin 8.8 g/dL (12.0-15.5) Hematocrit 27.6 % (36.0-47.0) Mean Corpuscular Volume 95 fL (79-100) Mean Corpuscular Hemoglobin 30 pg (25-35) Mean Corpuscular Hemoglobin Concent 32 g/dL (31-37) Red Cell Distribution Width 14.5 % (11.5-14.5) Platelet Count 165 x10^3/uL (140-400) Neutrophils (%) (Auto) 88 % (31-73) Lymphocytes (%) (Auto) 10 % (24-48) Monocytes (%) (Auto) 2 % (0-9) Eosinophils (%) (Auto) 0 % (0-3) Basophils (%) (Auto) 0 % (0-3) Neutrophils # (Auto) 3.9 x10^3uL (1.8-7.7) Lymphocytes # (Auto) 0.4 x10^3/uL (1.0-4.8) Monocytes # (Auto) 0.1 x10^3/uL (0.0-1.1) Eosinophils # (Auto) 0.0 x10^3/uL (0.0-0.7) Basophils # (Auto) 0.0 x10^3/uL (0.0-0.2) Segmented Neutrophils % 94 % (35-66) Band Neutrophils % 1 % (0-9) Lymphocytes % 5 % (24-48) Platelet Estimate Adequate (ADEQUATE) Sodium Level 144 mmol/L (136-145) Potassium Level 3.5 mmol/L (3.5-5.1) Chloride Level 102 mmol/L (98-107) Carbon Dioxide Level 36 mmol/L (21-32) Anion Gap 6 (6-14) Blood Urea Nitrogen 34 mg/dL (7-20) Creatinine 1.9 mg/dL (0.6-1.0) Estimated GFR (Cockcroft-Gault) 31.3 BUN/Creatinine Ratio 18 (6-20) Glucose Level 147 mg/dL (70-99) Calcium Level 9.0 mg/dL (8.5-10.1) Magnesium Level 1.9 mg/dL (1.8-2.4) Total Bilirubin 0.3 mg/dL (0.2-1.0) Aspartate Amino Transf (AST/SGOT) 22 U/L (15-37) Alanine Aminotransferase (ALT/SGPT) 18 U/L (14-59) Alkaline Phosphatase 73 U/L (46-116) Total Protein 6.2 g/dL (6.4-8.2) Albumin 2.4 g/dL (3.4-5.0) Albumin/Globulin Ratio 0.6 (1.0-1.7) Test 06/28/18 07:04 06/28/18 11:07 Glucose (Fingerstick) 127 mg/dL (70-99) 181 mg/dL (70-99) Medications Current Medications Albuterol/ Ipratropium (Duoneb) 3 ml 1X ONCE NEB Last administered on at 05:57; Start 06/25/18 at 06:00; Stop 06/25/18 at 06:01; Status DC Carvedilol (Coreg) 12.5 mg 1X ONCE PO Last administered on 06/25/18at 06:25; Start 06/25/18 at 06:15; Stop 06/25/18 at 06:16; Status DC Amlodipine Besylate (Norvasc) 10 mg 1X ONCE PO Last administered on 06/25/18at 06:25; Start 06/25/18 at 06:15; Stop 06/25/18 at 06:16; Status DC Losartan Potassium (Cozaar) 100 mg 1X ONCE PO Last administered on 06/25/18at 06:25; Start 06/25/18 at 06:15; Stop 06/25/18 at 06:16; Status DC Furosemide (Lasix) 40 mg 1X ONCE IVP Last administered on 06/25/18at 06:15; Start 06/25/18 at 06:15; Stop 06/25/18 at 06:16; Status DC Furosemide (Lasix) 40 mg STK-MED ONCE .ROUTE ; Start 06/25/18 at 06:14; Stop 05/01 at 06:15; Status DC Hydralazine HCl (Apresoline Inj) 10 mg 1X ONCE IVP Last administered on at 07:46; Start 06/25/18 at 07:15; Stop 06/25/18 at 07:16; Status DC Hydralazine HCl (Apresoline Inj) 20 mg 1X ONCE IVP Last administered on at 08:16; Start 06/25/18 at 08:15; Stop 06/25/18 at 08:16; Status DC Albuterol/ Ipratropium (Duoneb) 3 ml RTQID NEB Last administered on 06/28/18 08:10; Start 06/25/18 at 12:00 Amlodipine Besylate (Norvasc) 10 mg DAILY PO Last administered on 06/28/18 09: 28; Start 06/25/18 at 10:00 Aspirin (Ecotrin) 81 mg DAILY PO Last administered on 06/28/18 09:26; Start at 10:00 Atorvastatin Calcium (Lipitor) 40 mg HS PO Last administered on 06/27/18 21:21 ; Start 06/25/18 at 21:00 Carvedilol (Coreg) 12.5 mg BIDWMEALS PO Last administered on 06/27/18 09:00; Start 06/25/18 at 10:00; Stop 06/27/18 at 15:55; Status DC Gabapentin (Neurontin) 100 mg BID PO Last administered on 06/28/18 09:26; Start 06/25/18 at 10:00 Acetaminophen/ Hydrocodone Bitart (Lortab 5/325) 1 tab PRN Q4HRS PRN PO SEVERE PAIN; Start 06/25/18 at 09:30 Oxybutynin Chloride (Ditropan) 10 mg HS PO Last administered on 06/27/18 21:22 ; Start 06/25/18 at 21:00 Sertraline HCl (Zoloft) 50 mg DAILY PO Last administered on 06/28/18 09:27; Start 06/25/18 at 10:00 Donepezil HCl (Aricept) 10 mg QHS PO Last administered on 06/27/18 21:21; Start 06/25/18 at 21:00 Heparin Sodium (Porcine) (Heparin Sodium) 5,000 unit Q8HRS SQ Last administered on 06/28/18 05:50; Start 06/25/18 at 14:00 Non-Formulary Medication (Insulin Aspart (Novolog Flexpen)) TIDWMEALS SQ ; Start 06/25/18 at 12:00; Status UNV Insulin Glargine (Lantus) 40 units QHS SQ Last administered on 06/27/18 21:28 ; Start 06/25/18 at 21:00 Losartan Potassium (Cozaar) 100 mg DAILY PO Last administered on 06/27/18 09: 00; Start 06/25/18 at 10:00; Stop 06/28/18 at 08:30; Status DC Metolazone (Zaroxolyn) 2.5 mg DAILY PO Last administered on 06/28/18 09:26; Start 06/25/18 at 10:00 Pioglitazone HCl (Actos) 15 mg DAILY PO Last administered on 06/28/18 09:27; Start 06/25/18 at 10:00 Furosemide (Lasix) 40 mg DAILY IVP Last administered on 06/25/18at 12:54; Start 06/25/18 at 10:00; Stop 06/25/18 at 14:00; Status DC Insulin Human Lispro (HumaLOG) 0-9 UNITS TIDWMEALS SQ Last administered on 06/25at 17:42; Start 06/25/18 at 12:00 Dextrose (Dextrose 50%-Water Syringe) 12.5 gm PRN Q15MIN PRN IV SEE COMMENTS; Start 06/25/18 at 09:30 Acetaminophen (Tylenol) 500 mg PRN Q6HRS PRN PO MILD PAIN / TEMP Last administered on 06/25/18at 12:56; Start 06/25/18 at 09:30 Acetaminophen/ Codeine Phosphate (Tylenol #3) 1 tab PRN Q6HRS PRN PO MODERATE PAIN; Start 06/25/18 at 09:30 Furosemide (Lasix) 40 mg [id number] IVP Last administered on 06/26/18at 06:08; Start 06/25/18 at 18:00; Stop 06/26/18 at 17:38; Status DC Hydralazine HCl (Apresoline) 50 mg BID PO Last administered on 06/28/18 09:27 ; Start 06/25/18 at 14:00 Hydralazine HCl (Apresoline Inj) 10 mg PRN Q4HRS PRN IVP ELEVATED BP, SEE COMMENTS; Start 06/25/18 at 14:00 Isosorbide Mononitrate (Imdur) 30 mg DAILY PO Last administered on 06/28/18at 09 :27; Start 06/26/18 at 09:00 Magnesium Sulfate 50 ml @ 25 mls/hr 1X ONCE IV Last administered on 06/26/18at 18:20; Start 06/26/18 at 17:30; Stop 06/26/18 at 19:29; Status DC Furosemide (Lasix) 40 mg [id number] PO Last administered on 06/28/18 09:28; Start 06/27/18 at 09:00 Diclofenac Sodium (Voltaren) 1 yudy BID TP Last administered on 06/27/18 21:22 ; Start 06/26/18 at 21:00 Methylprednisolone Acetate (DEPO-Medrol 40MG VIAL) 40 mg 1X ONCE IM Last administered on 06/27/18 13:45; Start 06/27/18 at 13:45; Stop 06/27/18 at 13:48 ; Status DC Bupivacaine HCl (Sensorcaine-Mpf 0.25%) 10 ml 1X ONCE IJ Last administered on 06/27/18 13:45; Start 06/27/18 at 13:45; Stop 06/27/18 at 13:48; Status DC Polysaccharide Iron Complex (Niferex 150) 150 mg BID PO Last administered on 09:27; Start 06/27/18 at 21:00 Metoprolol Succinate (Toprol Xl) 100 mg DAILY PO Last administered on at 17:54; Start 06/27/18 at 17:00 Active Scripts Active Hydrocodone-Apap 5-325 (Hydrocodone Bit/Acetaminophen) 1 Each Tablet 1 Tab PO PRN Q4HRS PRN 7 Days Novolog Flexpen (Insulin Aspart) 100 Unit/1 Ml Insuln.pen 0 Units SQ TIDWMEALS 30 Days Reported Heparin 1,000 Unit/10 (100/ml) (Heparin Sodium,Porcine/Pf) 1,000 Unit/10 Ml Syringe 5,000 Unit SQ TID Gabapentin (Gabapentin) 100 Mg Capsule 100 Mg PO BID Metolazone 2.5 Mg Tablet 2.5 Mg PO DAILY Lasix (Furosemide) 40 Mg Tablet 40 Mg PO DAILY Oxybutynin Chloride 5 Mg Tablet 10 Mg PO HS Levemir Flextouch (Insulin Detemir) 100 Unit/1 Ml Insuln.pen 40 Unit SQ HS Pioglitazone Hcl 30 Mg Tablet 30 Mg PO DAILY Zoloft (Sertraline Hcl) 50 Mg Tablet 1 Tab PO DAILY Carvedilol (Carvedilol) 12.5 Mg Tablet 12.5 Mg PO BIDWMEALS Atorvastatin Calcium 40 Mg Tablet 40 Mg PO HS Aspirin Ec (Aspirin) 81 Mg Tablet.dr 81 Mg PO Amlodipine Besylate 10 Mg Tablet 10 Mg PO DAILY Donepezil Hcl 10 Mg Tablet 10 Mg PO HS Losartan Potassium 100 Mg Tablet 100 Mg PO DAILY Vitals/I & O Vital Sign - Last 24 Hours 06/27/18 06/27/18 06/27/18 06/27/18 15:00 15:31 17:54 19:00 Temp 98.5 98.7 98.5 98.7 Pulse 65 60 68 Resp 18 18 B/P (MAP) 149/59 (89) 149/70 (96) Pulse Ox 93 93 97 O2 Delivery Nasal Cannula Nasal Cannula Nasal Cannula O2 Flow Rate 2.0 2.0 2.0 06/27/18 06/27/18 06/27/18 06/27/18 19:20 20:20 21:22 23:00 Temp 98.4 98.4 Pulse 74 61 Resp 20 B/P (MAP) 149/70 143/60 (87) Pulse Ox 92 100 O2 Delivery Nasal Cannula Nasal Cannula BiPAP/CPAP O2 Flow Rate 2.0 2.0 06/28/18 06/28/18 06/28/18 06/28/18 00:06 01:31 02:55 03:58 Temp 98.3 98.3 Pulse 55 Resp 20 B/P (MAP) 134/52 (79) Pulse Ox 99 97 99 97 O2 Delivery BiPAP/CPAP BiPAP/CPAP BiPAP/CPAP BiPAP/CPAP 06/28/18 06/28/18 06/28/18 06/28/18 07:16 08:00 09:00 09:21 Temp 97.9 97.9 Pulse 56 54 Resp 20 B/P (MAP) 147/60 (89) Pulse Ox 97 100 O2 Delivery BiPAP/CPAP Nasal Cannula BiPAP/CPAP O2 Flow Rate 2.0 06/28/18 06/28/18 06/28/18 09:27 09:27 09:28 Pulse 56 56 56 B/P (MAP) 147/60 147/60 147/60 Intake and Output 06/27/18 06/27/18 06/28/18 14:59 22:59 06:59 Intake Total 100 ml 0 ml Output Total 1250 ml 750 ml Balance -1150 ml -750 ml MARIFER BOLAÑOS K III DO Jun 28, 2018 11:42
--- NOTE | 2018-06-28 12:12 | DS ---
DATE OF DISCHARGE: 06/28/2018 ADMISSION DIAGNOSES: 1. Congestive heart failure, [id number] systolic and diastolic. 2. Hypertensive emergency. 3. Acute respiratory failure. DISCHARGE DIAGNOSES: 1. Resolving respiratory failure. 2. Resolving hypertensive urgency. 3. Diabetes. 4. Obesity. 5. Obstructive sleep apnea. 6. Chronic kidney disease. 7. Hyperlipidemia. 8. Peripheral vascular disease. HOSPITAL COURSE: The patient is a pleasant elderly female who presented with [id number] systolic and diastolic heart failure. She was admitted. We consulted Cardiology. We diuresed her. We also had Dr. Watts see her and Dr. Samuels. Over the past few days, she has returned to her baseline, but is weak. We plan to discharge to group home today. The patient was seen and examined this morning. DISPOSITION: Skilled. ACTIVITY: As tolerated. DIET: Low sodium. MEDICATIONS: Please see the MRAD. TOTAL TIME: 34 minutes. MARIFER BOLAÑOS DO DR: NGA/shane JOB#: [id number] / [id number]
--- NOTE | 2018-06-28 12:36 | PDOC ---
CARDIO Progress Notes Date and Time Date of Service 06/28/2018 Time of Evaluation 1210 Subjective Subjective: No Chest Pain, No shortness of breath, No Palpitations Vitals Vitals Vital Signs Date Time Temp Pulse Resp B/P (MAP) Pulse Ox O2 Delivery O2 Flow Rate FiO2 06/28/18 11:56 Nasal Cannula 2.0 06/28/18 09:28 56 147/60 06/28/18 09:21 100 06/28/18 07:16 97.9 20 97.9 Weight Weight [ ] Input and Output Intake and Output Intake and Output 06/28/18 07:00 Intake Total 100 ml Output Total 2000 ml Balance -1900 ml Intake Oral 100 ml Output Urine Total 2000 ml Laboratory Labs Laboratory Tests Test 06/27/18 17:14 06/27/18 21:00 06/28/18 04:00 06/28/18 04:30 Glucose (Fingerstick) 125 mg/dL (70-99) 206 mg/dL (70-99) White Blood Count 4.5 x10^3/uL (4.0-11.0) Red Blood Count 2.92 x10^6/uL (3.50-5.40) Hemoglobin 8.8 g/dL (12.0-15.5) Hematocrit 27.6 % (36.0-47.0) Mean Corpuscular Volume 95 fL (79-100) Mean Corpuscular Hemoglobin 30 pg (25-35) Mean Corpuscular Hemoglobin Concent 32 g/dL (31-37) Red Cell Distribution Width 14.5 % (11.5-14.5) Platelet Count 165 x10^3/uL (140-400) Neutrophils (%) (Auto) 88 % (31-73) Lymphocytes (%) (Auto) 10 % (24-48) Monocytes (%) (Auto) 2 % (0-9) Eosinophils (%) (Auto) 0 % (0-3) Basophils (%) (Auto) 0 % (0-3) Neutrophils # (Auto) 3.9 x10^3uL (1.8-7.7) Lymphocytes # (Auto) 0.4 x10^3/uL (1.0-4.8) Monocytes # (Auto) 0.1 x10^3/uL (0.0-1.1) Eosinophils # (Auto) 0.0 x10^3/uL (0.0-0.7) Basophils # (Auto) 0.0 x10^3/uL (0.0-0.2) Segmented Neutrophils % 94 % (35-66) Band Neutrophils % 1 % (0-9) Lymphocytes % 5 % (24-48) Platelet Estimate Adequate (ADEQUATE) Sodium Level 144 mmol/L (136-145) Potassium Level 3.5 mmol/L (3.5-5.1) Chloride Level 102 mmol/L (98-107) Carbon Dioxide Level 36 mmol/L (21-32) Anion Gap 6 (6-14) Blood Urea Nitrogen 34 mg/dL (7-20) Creatinine 1.9 mg/dL (0.6-1.0) Estimated GFR (Cockcroft-Gault) 31.3 BUN/Creatinine Ratio 18 (6-20) Glucose Level 147 mg/dL (70-99) Calcium Level 9.0 mg/dL (8.5-10.1) Magnesium Level 1.9 mg/dL (1.8-2.4) Total Bilirubin 0.3 mg/dL (0.2-1.0) Aspartate Amino Transf (AST/SGOT) 22 U/L (15-37) Alanine Aminotransferase (ALT/SGPT) 18 U/L (14-59) Alkaline Phosphatase 73 U/L (46-116) Total Protein 6.2 g/dL (6.4-8.2) Albumin 2.4 g/dL (3.4-5.0) Albumin/Globulin Ratio 0.6 (1.0-1.7) Test 06/28/18 07:04 06/28/18 11:07 Glucose (Fingerstick) 127 mg/dL (70-99) 181 mg/dL (70-99) Physical Exam HEENT: Neck Supple W Full Motion Chest: Symmetric LUNGS: Other (diminished bases, basilar crackles) Heart: S1S2, RRR (SR) Abdomen: Soft N/T, Other (obese) Extremities: Other (2+ bilateral LE pitting edema) Neurology: alert, oriented, follow commands Assessment Assessment 1. Acute on chronic hypoxic respiratory failure/pleural effusion: +ALEXYS and CHF 2. Acute on chronic diastolic CHF: recent EF at 55%, multifactorial. appears compensated 3. Malignant hypertension; controlled 4. DM2/HLP 5. CKD3: Cr at 1.8 6. ALEXYS/pulmonary HTN: CPAP was broken and has been fixed per sister. 7. PVD s/p right popliteal to peroneal artery bypass. stable 8. Dementia 9. Fever: T max 100.6 with possible UTI defer to PCP 10. PAFIB: new onset. burst episodes, none further with toprol Recommendations 1. Continue with lasix therapy possibly bid dosing for 2 more doses then daily with zaroxylyn. Consider removal or substitute for ACTOS 2. Continue BP regimen. Toprol at 75 mg daily. Decrease losartan. Continue with hydralazine/imdur. Continue ASA for stroke prevention. 3. Will need outpt event monitor once DC'd from [facility] to note AFIB burden and assess further need of anticoagulation but likely poor candidate with risk for falls and dementia. 4. Continue Bipap/CPAP hs 5. Continue with secondary prevention. FR 2L. daily wt. 6. Follow up in 4 weeks. OK to DC to [facility] APRN Jun 28, 2018 12:36
[2018-06-28 13:00] VITALS: BP 147/60
[2018-06-28] MEDS ORDERED: LOSARTAN POTASSIUM 50 MG TABLET. PO SCH (13:00)
[2018-06-28] MEDS ORDERED: LOSA-73 PO (13:44)
[2018-06-28] MEDS ORDERED: FURO-68 PO ×4 (13:45→15:58)
[2018-06-28] MEDS ORDERED: METO-239 PO ×2 (13:45→15:58)
--- NOTE | 2018-06-28 13:53 | NUR ---
SS following up with discharge planning. Authorization received for [facility]. Pt will discharge today and go to [facility], ; fax [phone], between 1530 and 1600. [facility] to provide transportations. Pt's RN, pt, and pt's sister notified.
[2018-06-28] MEDS ORDERED: FURO40TA4 PO (14:05)
--- NOTE | 2018-06-28 15:59 | DISCH ---
DISCHARGE DISCHARGE INFORMATION: FINAL DIAGNOSIS Problems Medical Problems: (1) Elevated troponin Status: Acute CONDITION ON DISCHARGE: Stable CODE STATUS: Code Status: Full JAIL: SNF STAY <30 DAYS: Yes HOSPICE: HOSPICE: No HOSPICE EVAL & TREAT: No LTAC: ADMIT TO LTAC: No POST DISCHARGE ORDERS: ACTIVITY ORDERS: Activity as tolerated WEIGHT BEARING STATUS: As tolerated BATHING ORDERS: Shower-keep dressing dry, No Tub Bath until see DIET AFTER DISCHARGE: Cardiac WOUND/INCISION CARE: Other, see below CHECKS AFTER DISCHARGE: CHECKS AFTER DISCHARGE: Check blood press - daily, Check blood sugar, ac/hs TREATMENT/EQUIPMENT ORDERS: ADAPTIVE EQUIPMENT NEEDED: Four wheeled walker RESPIRATORY EQUIPMENT NEEDED: Oxygen Physical Therapy For: Evalulation/Treatment Occupational Therapy For: Evaluation/Treatment DISCHARGE MEDICATIONS: Home Meds Active Scripts Furosemide (LASIX) 40 Mg Tablet, 1 TAB PO BID for diuretic, #90 TAB 1 Refill Prov:CASTKRUPANIAL K III DO 06/28/18 Metoprolol Succinate (METOPROLOL SUCCINATE ( XL )) 25 Mg Tab.er.24h, 75 TAB PO DAILY for . MDD 100, #30 TAB 5 Refills Prov:MIKYNIAL K III DO 06/28/18 Hydrocodone Bit/Acetaminophen (HYDROCODONE-APAP 5-325 ) 1 Each Tablet, 1 TAB PO PRN Q4HRS PRN for MILD PAIN for 7 Days, #42 CAP 0 Refills Prov:ZAY MONTEMAYOR MD 06/18/18 Insulin Aspart (NOVOLOG FLEXPEN) 100 Unit/1 Ml Insuln.pen, 0 UNITS SQ TIDWMEALS for 30 Days, LIQUID 5 Refills Prov:ДМИТРИЙ RILEY MD 03/17/16 Reported Medications Furosemide (LASIX) 40 Mg Tablet, 1 TAB PO PRN DAILY PRN for CHF exacerbation, # 90 TAB 1 Refill Give 40 mg PO Lasix PRN if pt gains 2 lbs in 1 day or 5 lbs in 1 week; if pt also shows signs of CHF exacerbation 06/28/18 Furosemide (FUROSEMIDE) 40 Mg Tablet, 1 TAB PO BID for diuretic for 2 Days, #4 TAB 5 Refills 06/28/18 Losartan Potassium (LOSARTAN POTASSIUM) 50 Mg Tablet, 50 MG PO DAILY for HYPERTENSION, TAB 06/28/18 Gabapentin (GABAPENTIN ) 100 Mg Capsule, 100 MG PO BID for NEUROGENIC PAIN, CAP 06/25/18 Metolazone (METOLAZONE) 2.5 Mg Tablet, 2.5 MG PO DAILY, #30 TAB 0 Refills 06/25/18 Oxybutynin Chloride (OXYBUTYNIN CHLORIDE) 5 Mg Tablet, 10 MG PO HS, TAB 06/12/18 Insulin Detemir (Levemir Flextouch) 100 Unit/1 Ml Insuln.pen, 40 UNIT SQ HS, SYR 06/12/18 Pioglitazone Hcl (PIOGLITAZONE HCL) 30 Mg Tablet, 30 MG PO DAILY, TAB 06/12/18 Sertraline Hcl (ZOLOFT) 50 Mg Tablet, 1 TAB PO DAILY, #30 TAB 2 Refills 06/12/18 Atorvastatin Calcium (ATORVASTATIN CALCIUM) 40 Mg Tablet, 40 MG PO HS for FOR CHOLESTEROL, #30 TAB 0 Refills 07/21/16 Aspirin (ASPIRIN EC) 81 Mg Tablet.dr, 81 MG PO 03/14/16 Amlodipine Besylate (AMLODIPINE BESYLATE) 10 Mg Tablet, 10 MG PO DAILY, TAB 03/14/16 Donepezil Hcl (DONEPEZIL HCL) 10 Mg Tablet, 10 MG PO HS, TAB 03/14/16 MARIFER BOLAÑOS III DO Jun 28, 2018 15:59
--- NOTE | 2018-06-28 16:01 | DISCH ---
DISCHARGE DISCHARGE INFORMATION: FINAL DIAGNOSIS Problems Medical Problems: (1) Elevated troponin Status: Acute CONDITION ON DISCHARGE: Stable CODE STATUS: Code Status: Full SENIOR LIVING: SNF STAY <30 DAYS: Yes HOSPICE: HOSPICE: No HOSPICE EVAL & TREAT: No LTAC: ADMIT TO LTAC: No POST DISCHARGE ORDERS: ACTIVITY ORDERS: Activity as tolerated WEIGHT BEARING STATUS: As tolerated BATHING ORDERS: Shower-keep dressing dry, No Tub Bath until see DIET AFTER DISCHARGE: Cardiac WOUND/INCISION CARE: Other, see below CHECKS AFTER DISCHARGE: CHECKS AFTER DISCHARGE: Check blood press - daily, Check blood sugar, ac/hs FOLLOW-UP: PHYSICIAN FOLLOW-UP: . TREATMENT/EQUIPMENT ORDERS: ADAPTIVE EQUIPMENT NEEDED: Four wheeled walker RESPIRATORY EQUIPMENT NEEDED: Oxygen Physical Therapy For: Evalulation/Treatment Occupational Therapy For: Evaluation/Treatment DISCHARGE MEDICATIONS: Home Meds Active Scripts Furosemide (LASIX) 40 Mg Tablet, 1 TAB PO BID for diuretic, #90 TAB 1 Refill Prov:CASTLE,NIAL K III DO 06/28/18 Metoprolol Succinate (METOPROLOL SUCCINATE ( XL )) 25 Mg Tab.er.24h, 75 TAB PO DAILY for . MDD 100, #30 TAB 5 Refills Prov:CASTKRUPANIAL K III DO 06/28/18 Hydrocodone Bit/Acetaminophen (HYDROCODONE-APAP 5-325 ) 1 Each Tablet, 1 TAB PO PRN Q4HRS PRN for MILD PAIN for 7 Days, #42 CAP 0 Refills Prov:ZAY MONTEMAYOR MD 06/18/18 Insulin Aspart (NOVOLOG FLEXPEN) 100 Unit/1 Ml Insuln.pen, 0 UNITS SQ TIDWMEALS for 30 Days, LIQUID 5 Refills Prov:ДМИТРИЙ RILEY MD 03/17/16 Reported Medications Furosemide (LASIX) 40 Mg Tablet, 1 TAB PO PRN DAILY PRN for CHF exacerbation, # 90 TAB 1 Refill Give 40 mg PO Lasix PRN if pt gains 2 lbs in 1 day or 5 lbs in 1 week; if pt also shows signs of CHF exacerbation 06/28/18 Furosemide (FUROSEMIDE) 40 Mg Tablet, 1 TAB PO BID for diuretic for 2 Days, #4 TAB 5 Refills 06/28/18 Losartan Potassium (LOSARTAN POTASSIUM) 50 Mg Tablet, 50 MG PO DAILY for HYPERTENSION, TAB 06/28/18 Gabapentin (GABAPENTIN ) 100 Mg Capsule, 100 MG PO BID for NEUROGENIC PAIN, CAP 06/25/18 Metolazone (METOLAZONE) 2.5 Mg Tablet, 2.5 MG PO DAILY, #30 TAB 0 Refills 06/25/18 Oxybutynin Chloride (OXYBUTYNIN CHLORIDE) 5 Mg Tablet, 10 MG PO HS, TAB 06/12/18 Insulin Detemir (Levemir Flextouch) 100 Unit/1 Ml Insuln.pen, 40 UNIT SQ HS, SYR 06/12/18 Pioglitazone Hcl (PIOGLITAZONE HCL) 30 Mg Tablet, 30 MG PO DAILY, TAB 06/12/18 Sertraline Hcl (ZOLOFT) 50 Mg Tablet, 1 TAB PO DAILY, #30 TAB 2 Refills 06/12/18 Atorvastatin Calcium (ATORVASTATIN CALCIUM) 40 Mg Tablet, 40 MG PO HS for FOR CHOLESTEROL, #30 TAB 0 Refills 07/21/16 Aspirin (ASPIRIN EC) 81 Mg Tablet.dr, 81 MG PO 03/14/16 Amlodipine Besylate (AMLODIPINE BESYLATE) 10 Mg Tablet, 10 MG PO DAILY, TAB 03/14/16 Donepezil Hcl (DONEPEZIL HCL) 10 Mg Tablet, 10 MG PO HS, TAB 03/14/16 MARIFER BOLAÑOS III DO Jun 28, 2018 16:01
--- NOTE | 2018-06-28 17:06 | NUR ---
Discharge Note: BURT HOWARD [address] Discharge instructions and discharge home medications reviewed with Alea from [facility] and a copy given. All questions have been answered and understanding verbalized. The following instructions and handouts were given: CPAP and pneumonia Discontinued lines and drains: pineda catheter and IV acccess Patient discharged to [facility] with transportation via
[2018-06-29] MEDS ORDERED: METOPROLOL SUCC 24HR ER 25 MG TAB.ER.24H. PO SCH (09:00)
== END 2018-06-28 17:08 | DRG 291 ==
LOC: ER 05:30 → 2 NORTH 08:05
PROVIDERS: ADMIT Internal Medicine; ATTEND Internal Medicine
PROC: 5A09357 Assistance with Respiratory Ventilation, Less than 24 Consecutive Hours, Continuous Positive Airway Pressure (ICD-10-PCS; principal; 2018-06-25)
PROC: 5A09357 Assistance with Respiratory Ventilation, Less than 24 Consecutive Hours, Continuous Positive Airway Pressure (ICD-10-PCS; 2018-06-26)
PROC: 5A09357 Assistance with Respiratory Ventilation, Less than 24 Consecutive Hours, Continuous Positive Airway Pressure (ICD-10-PCS; 2018-06-27)
PROC: 3E0U33Z Introduction of Anti-inflammatory into Joints, Percutaneous Approach (ICD-10-PCS; 2018-06-27)
PROC: 3E0U3BZ Introduction of Anesthetic Agent into Joints, Percutaneous Approach (ICD-10-PCS; 2018-06-27)
PROC: 5A09357 Assistance with Respiratory Ventilation, Less than 24 Consecutive Hours, Continuous Positive Airway Pressure (ICD-10-PCS; 2018-06-28)
DX: I13.0 Hypertensive heart and chronic kidney disease with heart failure and stage 1 through stage 4 chronic kidney disease, or unspecified chronic kidney disease (principal); N17.0 Acute kidney failure with tubular necrosis; J96.21 Acute and chronic respiratory failure with hypoxia; I50.43 Acute on chronic combined systolic (congestive) and diastolic (congestive) heart failure; J96.22 Acute and chronic respiratory failure with hypercapnia; E66.2 Morbid (severe) obesity with alveolar hypoventilation; I16.1 Hypertensive emergency; Z68.42 Body mass index [BMI] 45.0-49.9, adult; E10.22 Type 1 diabetes mellitus with diabetic chronic kidney disease; E10.42 Type 1 diabetes mellitus with diabetic polyneuropathy; E10.51 Type 1 diabetes mellitus with diabetic peripheral angiopathy without gangrene; E78.5 Hyperlipidemia, unspecified; F03.90 Unspecified dementia, unspecified severity, without behavioral disturbance, psychotic disturbance, mood disturbance, and anxiety; I27.20 Pulmonary hypertension, unspecified; F32.9 Major depressive disorder, single episode, unspecified; F41.9 Anxiety disorder, unspecified; M19.90 Unspecified osteoarthritis, unspecified site; M17.0 Bilateral primary osteoarthritis of knee; N18.3 Chronic kidney disease, stage 3 (moderate); Z79.4 Long term (current) use of insulin; Z82.49 Family history of ischemic heart disease and other diseases of the circulatory system; Z86.73 Personal history of transient ischemic attack (TIA), and cerebral infarction without residual deficits; Z87.440 Personal history of urinary (tract) infections; Z90.710 Acquired absence of both cervix and uterus
CPT/HCPCS: 36415; 36600; 71045; 80048; 80053; 81001; 82805; 82962; 83735; 83880; 84484; 85007; 85025; 85610; 85730; 93005; 94640; 94660; 94760; 96374; 96375; 99291; J0360; J1030; J1644; J1815; J1940; J3475; J3490; J7620; 92610; 97110; 97530

== ENCOUNTER 2018-09-06 16:14 | Inpatient (IN) | payer OTHER ==
[~2018-09-06] VITALS: Ht 175.3 cm; Wt 98.0 kg
[~2018-09-06 16:14] MED LIST changes: +FURO-68 PO; +FURO40TA4 PO; +HEPA100D36 SQ; +LOSA-73 PO; +METO-239 PO; +METO2.5T PO
--- NOTE | 2018-09-06 16:28 | PHYS DOC ---
Past Medical History Past Medical History: Anxiety, CHF, Dementia, Depression, Diabetes-Type II, High Cholesterol, Hypertension, Renal Disease, TIA, Other Additional Past Medical Histor: OSTEOARTHRITIS, OBSTRUCTIVE SLEEP APNEA Past Surgical History: Other Additional Past Surgical Histo: NECK SURGERY, FEM POP Alcohol Use: None Drug Use: None Adult General HPI HPI Patient is a 73 year old F who was eating at [employer] with her sister and she was sitting up on a tall stool and fell backwards off the stool. She hit her buttocks and then the back of her head. She denies LOC and denies being on a blood thinner. She is brought in by EMS who state she was still on the floor when they arrived. She was awake and alert. She is complaining of pain in her head, upper back and "tailbone". Review of Systems Review of Systems Constitutional: Denies fever or chills Head: Head pain and swelling. Respiratory: Denies cough or shortness of breath Cardiovascular: Denies chest pain GI: Denies abdominal pain, nausea, vomiting, bloody stools or diarrhea Musculoskeletal: Denies back pain. Reports buttock pain. Integument: bruising Neurologic: Focal weakness or sensory changes. Reports headache. All other systems were reviewed and found to be within normal limits, except as documented in this note. Current Medications Current Medications Current Medications Medications (Trade) Dose Ordered Sig/Blue Start Time Stop Time Status Last Admin Dose Admin Acetaminophen/ Hydrocodone Bitart (Lortab 7.5/325) 1 tab 1X ONCE 09/06/18 16:30 09/06/18 16:31 DC 09/06/18 16:37 1 TAB Fentanyl Citrate (Fentanyl 2ml Vial) 25 mcg 1X ONCE 09/06/18 18:15 09/06/18 18:16 DC 09/06/18 18:31 25 MCG Insulin Human Lispro (HumaLOG VIAL) 5 unit 1X ONCE 09/06/18 16:45 09/06/18 16:46 UNV Insulin Human Regular (HumuLIN R VIAL) 5 unit 1X ONCE 09/06/18 16:45 09/06/18 16:48 DC 09/06/18 17:17 5 UNIT Ondansetron HCl (Zofran Odt) 4 mg 1X ONCE 09/06/18 16:30 09/06/18 16:31 DC 09/06/18 16:37 4 MG Sodium Chloride 1,000 ml @ 1,000 mls/hr 1X ONCE 09/06/18 19:00 09/06/18 19:59 DC 09/06/18 19:29 1,000 MLS/HR Allergies Allergies Allergies Coded Allergies Type Severity Reaction Last Updated Verified No Known Drug Allergies 08/04/16 No Physical Exam Physical Exam Constitutional: Well developed, well nourished, no acute distress, non-toxic appearance. HENT: Normocephalic, atraumatic. Large posterior scalp hematoma. Eyes: PERRLA, EOMI, conjunctiva normal, no discharge. Neck: Normal range of motion, no tenderness, supple, no stridor. Cardiovascular:Heart rate regular rhythm, no murmur Lungs & Thorax: Bilateral breath sounds clear to auscultation Abdomen: Bowel sounds normal, soft, no tenderness, no masses, no pulsatile masses. Skin: Warm, dry. Contusion scalp Back: Tender to palpation in upper back and coccyx region. Extremities: No tenderness, no cyanosis, no clubbing, ROM intact, no edema Neurologic: Alert and oriented X 3, normal motor function, normal sensory function, no focal deficits noted. Psychologic: Affect normal, judgement normal, mood normal. Current Patient Data Vital Signs Vital Signs Date Time Temp Pulse Resp B/P (MAP) Pulse Ox O2 Delivery O2 Flow Rate FiO2 09/06/18 19:01 16 94 Nasal Cannula 3.0 09/06/18 18:59 58 09/06/18 16:14 97.7 189/80 (116) 97.7 Lab Values Laboratory Tests Test 09/06/18 16:24 09/06/18 18:44 Glucose (Fingerstick) 374 mg/dL (70-99) H 305 mg/dL (70-99) H EKG EKG [] Radiology/Procedures Radiology/Procedures CT head: no intracranial hemorrhage but large subgaleal hematoma. CT neck, tspine and pelvis: neg for fractures. Course & Med Decision Making Course & Med Decision Making Pertinent Labs and Imaging studies reviewed. (See chart for details) Pt's accucheck showed glucose over 300mg/dL. Pt was actually seen at her PCP office today and had routine labs and tests done and then went to [facility] to eat and that is when accident occurred. She did not get to eat prior to this accident. Insulin given SC initially. Pt's images are reassuring but difficult time getting pain under control. Gave her a PO Delta 7.5 and she reports little improvement in pain, so then gave IM Fentanyl 25mcg. She had some improvement but states her head hurts with any mov ement and when we stood her at bedside she was very wobbly and uncomfortable in buttock and head. Decision was made to admit for pain control and close observation for head injury. Sister in room very happy with this plan. Pt's blood work then done and showed very low potassium. PO potassium given in ER and blood sugar also coming down. Admitted pt to Dr. Richard. I did not consult ortho since imaging did not show any fractures. Dragon Disclaimer Dragon Disclaimer This electronic medical record was generated, in whole or in part, using a voice recognition dictation system. Departure Departure Impression: Primary Impression: Hematoma of scalp Additional Impressions: Coccyx pain Hyperglycemia Disposition: 09 ADMITTED INPATIENT Admitting Physician: Barb Richard Condition: IMPROVED Referrals: TONY VALDES MD (PCP) Problem Qualifiers QUINTIN CARVALHO Sep 06, 2018 16:28
[2018-09-06] MEDS ORDERED: ONDANSETRON ODT 4 MG TAB.RAPDIS. PO ONE (16:30)
[2018-09-06] MEDS ORDERED: HYDROcodone/APAP 7.5/325MG 1 TAB TABLET PO ONE (16:30)
[2018-09-06] MEDS ORDERED: INSULIN LISPRO 100 UNIT/ML 3ML VIAL. SQ ONE (16:45)
[2018-09-06] MEDS ORDERED: INSULIN REGULAR 100 UNIT/ML 3ML VIAL. SQ ONE (16:45)
[2018-09-06] MEDS ORDERED: INSULIN REGULAR 100 UNIT/ML 3ML VIAL. IV ONE (16:45)
--- NOTE | 2018-09-06 17:13 | RAD ---
Examination: CT HEAD AND CERVICAL SPINE WO, CT THORACIC SPINE WO CONTRAST History: fell off stool hitting buttock then head PREV SENT Comparison/Correlation: 03/14/2016 CT head and cervical spine Findings: Axial images of the head, cervical spine, and thoracic spine were obtained. Sagittal and coronal reformatted images of the cervical and thoracic spine were provided. Advanced atrophy and chronic ischemic changes white matter is noted. Large subgaleal hematoma is present at the posterior vertex. It is of greater extent at the right posterior vertex. It measures 8.4 cm transverse by 3.3 cm anteroposterior no intracranial hemorrhage, midline shift, or mass effect. No depressed skull fracture. Bilateral maxillary defects at C3, C4, C5 noted. Rods are present bilaterally involving the cervical spine with associated screws involving the posterior facets from C3 to C6 on the right and left. Bony density along the posterior aspect of the vertebral bodies from the tip of the dens to C4 for is noted. Correlate with bone graft placement history. Spurring is notable involving the anterior aspect of the mid to lower cervical spine. Enlarged left thyroid lobe which is heterogeneous in appearance identified. Alignment of the cervical and thoracic spine is unremarkable. Significant spurring along the posterior margin of T3 vertebral body is evident with spinal canal stenosis of up to 50 percent. Spurring along the T4-5 disc space level also is present with mild spinal canal stenosis. No acute fracture or bony destruction. Vertebral body heights are adequate. Visualized soft tissues are unremarkable. Impression: No intracranial hemorrhage. Large subgaleal hematoma at the vertex. No acute fracture or malalignment. PQRS Compliance Statement: One or more of the following individualized dose reduction techniques were utilized for this examination: 1. Automated exposure control 2. Adjustment of the mA and/or kV according to patient size 3. Use of iterative reconstruction technique Electronically signed by: Jaguar Leblanc MD (09/06/2018 5:10 PM) [facility]
[2018-09-06] MEDS ORDERED: fentaNYL PF VIAL 100 MCG/2 ML VIAL IM ONE (18:15)
[2018-09-06] MEDS ORDERED: IV NORMAL SALINE 1000ML BAG 1,000 ML IV ONE (19:00)
[2018-09-06 19:54] LABS: BASO # 0.1 x10^3/uL (0.0-0.2); BASO % 1 % (0-3); EOS # 0.1 x10^3/uL (0.0-0.7); EOS % 1 % (0-3); HEMATOCRIT 37.7 % (36.0-47.0); HEMOGLOBIN 12.3 g/dL (12.0-15.5); LYMPH # 1.8 x10^3/uL (1.0-4.8); LYMPH % 16 % (24-48); MEAN CORPUSCULAR HEMOGLOBIN 29 pg (25-35); MEAN CORPUSCULAR HGB CONC 33 g/dL (31-37); MEAN CORPUSCULAR VOLUME 90 fL (79-100); MONO # 0.7 x10^3/uL (0.0-1.1); MONO % 6 % (0-9); NEUT % 78 % (31-73); PLATELET COUNT 226 x10^3/uL (140-400); RED CELL DISTRIBUTION WIDTH 13.8 % (11.5-14.5); WHITE BLOOD COUNT 11.6 x10^3/uL (4.0-11.0)
[2018-09-06] MEDS ORDERED: MORPHINE SULFATE 2 MG/ML VIAL. IV PRN (20:00)
[2018-09-06] MEDS ORDERED: ONDANSETRON PF 4 MG/2 ML VIAL. IV PRN (20:00)
[2018-09-06 20:04] LABS: PROTHROMBIN TIME PATIENT 14.2 SEC (11.7-14.0)
[2018-09-06 20:29] LABS: ALBUMIN 3.3 g/dL (3.4-5.0); ALBUMIN/GLOBULIN RATIO 0.8 (1.0-1.7); CALCIUM 9.8 mg/dL (8.5-10.1); CREATININE 1.9 mg/dL (0.6-1.0); GFR 31.3; TOTAL BILIRUBIN 0.3 mg/dL (0.2-1.0); TOTAL PROTEIN 7.4 g/dL (6.4-8.2)
[2018-09-06 20:31] LABS: POTASSIUM 2.8 mmol/L (3.5-5.1)
[2018-09-06] MEDS ORDERED: POTASSIUM CHLORIDE 20 MEQ TABLET.ER. PO ONE ×2 (20:45→22:00)
[2018-09-06] MEDS ORDERED: DEXTROSE 50% 25 GM / 50ML DISP.SYRIN. IV PRN ×2 (20:45→21:45)
[2018-09-06 20:46] VITALS: BP 187/67
--- NOTE | 2018-09-06 20:54 | RAD ---
CT pelvis without contrast HISTORY: Fall stool pain in coccyx and buttocks Axial helical images obtained of the pelvis without contrast and axial coronal and sagittal reconstruction was performed. There is old fractures of the inferior pubic rami bilaterally. The remaining visualized osseous structures appear intact. The urinary bladder is mildly distended. There is no free fluid in the pelvis. IMPRESSION: No acute findings. PQRS Compliance Statement: One or more of the following individualized dose reduction techniques were utilized for this examination: 1. Automated exposure control 2. Adjustment of the mA and/or kV according to patient size 3. Use of iterative reconstruction technique Electronically signed by: Milton Shafer III, MD (09/06/2018 8:51 PM) [facility]
--- NOTE | 2018-09-06 21:43 | PDOC1 ---
History and Physical Date of Admission Date of Admission DATE: 09/06/18 TIME: 21:34 Source Source: Chart review, Patient History of Present Illness History of Present Illness Ms. Rdz, is a 73 year old F admit for head pain and back pain. She was waiting for her food at [employer] and fell off one of the high stools, she had no prodrome, had felt well, and she feels like she was just not situated well on the chair and was trying to get settled and fell. She She fell backwards off the stool, hit her buttocks and then the back of her head. no LOC reported by patient or her sister, EMS arrive, pt was still on the floor when they arrived. she is tearful and complains of pain but is oriented pain / Past Medical History Cardiovascular: HTN, Hyperlipidemia, Other Pulmonary: Other CENTRAL NERVOUS SYSTEM: Periperal neuropathy, TIA GI: No pertinent hx Heme/Onc: No pertinent hx Hepatobiliary: No pertinent hx Psych: Anxiety, Depression Musculoskeletal: Osteoarthritis Rheumatologic: No pertinent hx Infectious disease: No pertinent hx Renal/: Chronic renal insuff, UTI, Other Endocrine: Diabetes Past Surgical History Past Surgical History: Tonsillectomy, Hysterectomy, Other Family History Family History: Hypertension Social History Smoke: No ALCOHOL: none Drugs: None Current Problem List Problem List Problems Medical Problems: (1) Coccyx pain Status: Acute (2) Hematoma of scalp Status: Acute (3) Hyperglycemia Status: Acute Current Medications Current Medications Current Medications Ondansetron HCl (Zofran Odt) 4 mg 1X ONCE PO Last administered on 09/06/18at 16:37; Start 09/06/18 at 16:30; Stop 09/06/18 at 16:31; Status DC Acetaminophen/ Hydrocodone Bitart (Lortab 7.5/325) 1 tab 1X ONCE PO Last administered on 09/06/18at 16:37; Start 09/06/18 at 16:30; Stop 09/06/18 at 16:31; Status DC Insulin Human Lispro (HumaLOG VIAL) 5 unit 1X ONCE SQ ; Start 09/06/18 at 16:45; Stop 09/06/18 at 16:46; Status UNV Insulin Human Regular (HumuLIN R VIAL) 5 unit 1X ONCE IV ; Start 09/06/18 at 16:45; Stop 09/06/18 at 16:46; Status DC Insulin Human Regular (HumuLIN R VIAL) 5 unit 1X ONCE SQ Last administered on 09/06/18at 17:17; Start 09/06/18 at 16:45; Stop 09/06/18 at 16:48; Status DC Fentanyl Citrate (Fentanyl 2ml Vial) 25 mcg 1X ONCE IM Last administered on 09/06/18at 18:31; Start 09/06/18 at 18:15; Stop 09/06/18 at 18:16; Status DC Sodium Chloride 1,000 ml @ 1,000 mls/hr 1X ONCE IV Last administered on 09/06/18at 19:29; Start 09/06/18 at 19:00; Stop 09/06/18 at 19:59; Status DC Ondansetron HCl (Zofran) 4 mg PRN Q8HRS PRN IV NAUSEA/VOMITING; Start 09/06/18 at 20:00; Stop 09/07/18 at 19:59 Morphine Sulfate (Morphine Sulfate) 2 mg PRN Q2HR PRN IV PAIN; Start 09/06/18 at 20:00; Stop 09/07/18 at 19:59 Potassium Chloride (Klor-Con) 20 meq 1X ONCE PO Last administered on 09/06/18at 20:42; Start 09/06/18 at 20:45; Stop 09/06/18 at 20:46; Status DC Insulin Human Lispro (HumaLOG) 0-5 UNITS TIDWMEALS SQ ; Start 09/07/18 at 08:00 Dextrose (Dextrose 50%-Water Syringe) 12.5 gm PRN Q15MIN PRN IV SEE COMMENTS; Start 09/06/18 at 20:45 Active Scripts Active Lasix (Furosemide) 40 Mg Tablet 1 Tab PO BID Metoprolol Succinate ( Xl ) (Metoprolol Succinate) 25 Mg Tab.er.24h 75 Tab PO DAILY MDD 100 Hydrocodone-Apap 5-325 (Hydrocodone Bit/Acetaminophen) 1 Each Tablet 1 Tab PO PRN Q4HRS PRN 7 Days Novolog Flexpen (Insulin Aspart) 100 Unit/1 Ml Insuln.pen 0 Units SQ TIDWMEALS 30 Days Reported Lasix (Furosemide) 40 Mg Tablet 1 Tab PO PRN DAILY PRN Give 40 mg PO Lasix PRN if pt gains 2 lbs in 1 day or 5 lbs in 1 week; if pt also shows signs of CHF exacerbation Furosemide 40 Mg Tablet 1 Tab PO BID 2 Days Losartan Potassium 50 Mg Tablet 50 Mg PO DAILY Gabapentin (Gabapentin) 100 Mg Capsule 100 Mg PO BID Metolazone 2.5 Mg Tablet 2.5 Mg PO DAILY Oxybutynin Chloride 5 Mg Tablet 10 Mg PO HS Levemir Flextouch (Insulin Detemir) 100 Unit/1 Ml Insuln.pen 40 Unit SQ HS Pioglitazone Hcl 30 Mg Tablet 30 Mg PO DAILY Zoloft (Sertraline Hcl) 50 Mg Tablet 1 Tab PO DAILY Atorvastatin Calcium 40 Mg Tablet 40 Mg PO HS Aspirin Ec (Aspirin) 81 Mg Tablet.dr 81 Mg PO Amlodipine Besylate 10 Mg Tablet 10 Mg PO DAILY Donepezil Hcl 10 Mg Tablet 10 Mg PO HS Allergies Allergies: Coded Allergies: No Known Drug Allergies (Unverified , 08/04/16) ROS General: No: Chills, Night Sweats, Fatigue, Malaise, Appetite, Other PSYCHOLOGICAL ROS: No: Anxiety, Behavioral Disorder, Concentration difficultie, Decreased libido, Depression, Disorientation, Hallucinations, Hostility, Irritablity, Memory difficulties, Mood Swings, Obsessive thoughts, Physical abuse, Sexual abuse, Sleep disturbances, Suicidal ideation, Other Eyes: No Blurry vision, No Decreased vision, No Double vision, No Dry eyes, No Excessive tearing, No Eye Pain, No Itchy Eyes, No Loss of vision, No Photophobia, No Scotomata, No Uses contacts, No Uses glasses, No Other HEENT: YES: Heacaches (only now); No: Visual Changes, Hearing change, Nasal congestion, Nasal discharge, Oral lesions, Sinus pain, Sore Throat, Epistaxis, Sneezing, Snoring, Tinnitus, Vertigo, Vocal changes, Other Respiratory: No: Cough, Hemoptysis, Orthopnea, Pleuritic Pain, Shortness of breath, SOB with excertion, Sputum Changes, Stridor, Tachypnea, Wheezing, Other Cardiovascular: No Chest Pain, No Palpitations, No Orthopnea, No Paroxysmal Noc. Dyspnea, No Edema, No Lt Headedness, No Other Gastrointestinal: No Nausea, No Vomiting, No Abdominal Pain, No Diarrhea, No C onstipation, No Melena, No Hematochezia, No Other Genitourinary: No Dysuria, No Frequency, No Incontinence, No Hematuria, No Retention, No Discharge, No Urgency, No Pain, No Flank Pain, No Other, No , No , No , No , No , No , No Musculoskeletal: Yes Joint Pain, Yes Joint Stiffness; No Gait Disturbance, No Joint Swelling, No Muscle Pain, No Muscular Weakness, No Pain In:, No Swelling In:, No Other Neurological: No Behavorial Changes, No Bowel/Bladder ControlChng, No Confusion, No Dizziness, No Gait Disturbance, No Headaches, No Impaired Coord/balance, No Memory Loss, No Numbness/Tingling, No Seizures, No Speech Problems, No Tremors, No Visual Changes, No Weakness, No Other Skin: Yes Dry Skin; No Eczema, No Hair Changes, No Lumps, No Mole Changes, No Mottling, No Nail Changes, No Pruritus, No Rash, No Skin Lesion Changes, No Other, No Acne Physical Exam General: Alert, Oriented X3, mild distress, moderate distress HEENT: Atraumatic, Mucous membr. moist/pink Lungs: Normal air movement Heart: S1S2, no gallops, no murmurs Abdomen: Normal bowel sounds, Soft (obese), No tenderness Rectal Exam: not examined Extremities: No clubbing, No edema Skin: No rashes, No breakdown Neuro: Normal gait, Normal tone, Sensation intact, Cranial nerves 3-12 NL Psych/Mental Status: Mental status NL, Mood NL Vitals Vitals Vital Signs Date Time Temp Pulse Resp B/P (MAP) Pulse Ox O2 Delivery O2 Flow Rate FiO2 09/06/18 20:27 64 17 97 09/06/18 19:01 Nasal Cannula 3.0 09/06/18 16:14 97.7 189/80 (116) 97.7 Labs Labs Laboratory Tests Test 09/06/18 16:24 09/06/18 18:44 09/06/18 19:40 09/06/18 20:57 Glucose (Fingerstick) 374 mg/dL (70-99) 305 mg/dL (70-99) 228 mg/dL (70-99) White Blood Count 11.6 x10^3/uL (4.0-11.0) Red Blood Count 4.20 x10^6/uL (3.50-5.40) Hemoglobin 12.3 g/dL (12.0-15.5) Hematocrit 37.7 % (36.0-47.0) Mean Corpuscular Volume 90 fL (79-100) Mean Corpuscular Hemoglobin 29 pg (25-35) Mean Corpuscular Hemoglobin Concent 33 g/dL (31-37) Red Cell Distribution Width 13.8 % (11.5-14.5) Platelet Count 226 x10^3/uL (140-400) Neutrophils (%) (Auto) 78 % (31-73) Lymphocytes (%) (Auto) 16 % (24-48) Monocytes (%) (Auto) 6 % (0-9) Eosinophils (%) (Auto) 1 % (0-3) Basophils (%) (Auto) 1 % (0-3) Neutrophils # (Auto) 9.0 x10^3uL (1.8-7.7) Lymphocytes # (Auto) 1.8 x10^3/uL (1.0-4.8) Monocytes # (Auto) 0.7 x10^3/uL (0.0-1.1) Eosinophils # (Auto) 0.1 x10^3/uL (0.0-0.7) Basophils # (Auto) 0.1 x10^3/uL (0.0-0.2) Prothrombin Time 14.2 SEC (11.7-14.0) Prothromb Time International Ratio 1.1 (0.8-1.1) Activated Partial Thromboplast Time 26 SEC (24-38) Sodium Level 141 mmol/L (136-145) Potassium Level 2.8 mmol/L (3.5-5.1) Chloride Level 99 mmol/L (98-107) Carbon Dioxide Level 35 mmol/L (21-32) Anion Gap 7 (6-14) Blood Urea Nitrogen 39 mg/dL (7-20) Creatinine 1.9 mg/dL (0.6-1.0) Estimated GFR (Cockcroft-Gault) 31.3 BUN/Creatinine Ratio 21 (6-20) Glucose Level 283 mg/dL (70-99) Calcium Level 9.8 mg/dL (8.5-10.1) Total Bilirubin 0.3 mg/dL (0.2-1.0) Aspartate Amino Transf (AST/SGOT) 14 U/L (15-37) Alanine Aminotransferase (ALT/SGPT) 13 U/L (14-59) Alkaline Phosphatase 121 U/L (46-116) Total Protein 7.4 g/dL (6.4-8.2) Albumin 3.3 g/dL (3.4-5.0) Albumin/Globulin Ratio 0.8 (1.0-1.7) Laboratory Tests Test 09/06/18 16:24 09/06/18 18:44 09/06/18 19:40 09/06/18 20:57 Glucose (Fingerstick) 374 mg/dL (70-99) 305 mg/dL (70-99) 228 mg/dL (70-99) White Blood Count 11.6 x10^3/uL (4.0-11.0) Red Blood Count 4.20 x10^6/uL (3.50-5.40) Hemoglobin 12.3 g/dL (12.0-15.5) Hematocrit 37.7 % (36.0-47.0) Mean Corpuscular Volume 90 fL (79-100) Mean Corpuscular Hemoglobin 29 pg (25-35) Mean Corpuscular Hemoglobin Concent 33 g/dL (31-37) Red Cell Distribution Width 13.8 % (11.5-14.5) Platelet Count 226 x10^3/uL (140-400) Neutrophils (%) (Auto) 78 % (31-73) Lymphocytes (%) (Auto) 16 % (24-48) Monocytes (%) (Auto) 6 % (0-9) Eosinophils (%) (Auto) 1 % (0-3) Basophils (%) (Auto) 1 % (0-3) Neutrophils # (Auto) 9.0 x10^3uL (1.8-7.7) Lymphocytes # (Auto) 1.8 x10^3/uL (1.0-4.8) Monocytes # (Auto) 0.7 x10^3/uL (0.0-1.1) Eosinophils # (Auto) 0.1 x10^3/uL (0.0-0.7) Basophils # (Auto) 0.1 x10^3/uL (0.0-0.2) Prothrombin Time 14.2 SEC (11.7-14.0) Prothromb Time International Ratio 1.1 (0.8-1.1) Activated Partial Thromboplast Time 26 SEC (24-38) Sodium Level 141 mmol/L (136-145) Potassium Level 2.8 mmol/L (3.5-5.1) Chloride Level 99 mmol/L (98-107) Carbon Dioxide Level 35 mmol/L (21-32) Anion Gap 7 (6-14) Blood Urea Nitrogen 39 mg/dL (7-20) Creatinine 1.9 mg/dL (0.6-1.0) Estimated GFR (Cockcroft-Gault) 31.3 BUN/Creatinine Ratio 21 (6-20) Glucose Level 283 mg/dL (70-99) Calcium Level 9.8 mg/dL (8.5-10.1) Total Bilirubin 0.3 mg/dL (0.2-1.0) Aspartate Amino Transf (AST/SGOT) 14 U/L (15-37) Alanine Aminotransferase (ALT/SGPT) 13 U/L (14-59) Alkaline Phosphatase 121 U/L (46-116) Total Protein 7.4 g/dL (6.4-8.2) Albumin 3.3 g/dL (3.4-5.0) Albumin/Globulin Ratio 0.8 (1.0-1.7) VTE Prophylaxis Ordered VTE Prophylaxis Devices: Yes VTE Pharmacological Prophylaxi: Yes Assessment/Plan Assessment/Plan fall, no prodrome, she did not report syncope or LOC concussion, post concussive syndrome, head contusion pelvic pain, coccyx bruise CHF, acute hypokalemia, check mag CKd3, obesity, BMI 37 cognitive decline, on aricept ALFREDO BUCHANAN MD Sep 06, 2018 21:43
[2018-09-06] MEDS ORDERED: METO-239 PO (21:50)
[2018-09-06] MEDS ORDERED: GABAPENTIN 100 MG CAPSULE. PO SCH (22:00)
[2018-09-06] MEDS ORDERED: GABA300C18 PO ×2 (22:21→22:26)
[2018-09-06] MEDS: OXYBUTYNIN CHLORIDE 5 MG TABLET PO SCH (22:39)
[2018-09-06] MEDS: DONEPEZIL HCL 10 MG TABLET. PO SCH (22:39)
[2018-09-06] MEDS: GABAPENTIN 300 MG CAPSULE. PO SCH (22:41)
[2018-09-06] MEDS: ENOXAPARIN 40 MG/0.4 ML SYRINGE. SQ SCH (22:41)
[2018-09-06] MEDS: INSULIN GLARGINE 300 UNITS/3 ML INSULN.PEN. SQ SCH (22:51)
[2018-09-06 23:00] VITALS: BP 151/76
[2018-09-06] MEDS ORDERED: MAGNESIUM SULFATE 2GM 50 ML IV ONE (23:00)
--- NOTE | 2018-09-07 02:43 | NUR ---
The patient, BURT HOWARD I, 73 y/o, F admitted by ALFREDO BUCHANAN MD, was given written information regarding hospital policies, unit procedures and contact persons. Pt. is afebrile, VSS, and c/o aching pain on the back of her head. Pt.'s sister was present on admission. Home medications verified w/ pt. and sister. Will continue to monitor.
[2018-09-07 03:00] VITALS: BP 149/95
[2018-09-07 06:05] LABS: BASO # 0.1 x10^3/uL (0.0-0.2); BASO % 1 % (0-3); EOS # 0.1 x10^3/uL (0.0-0.7); EOS % 1 % (0-3); HEMATOCRIT 36.4 % (36.0-47.0); HEMOGLOBIN 11.9 g/dL (12.0-15.5); LYMPH # 2.2 x10^3/uL (1.0-4.8); LYMPH % 21 % (24-48); MEAN CORPUSCULAR HEMOGLOBIN 30 pg (25-35); MEAN CORPUSCULAR HGB CONC 33 g/dL (31-37); MEAN CORPUSCULAR VOLUME 90 fL (79-100); MONO # 0.8 x10^3/uL (0.0-1.1); MONO % 8 % (0-9); NEUT # 7.1 x10^3uL (1.8-7.7); NEUT % 69 % (31-73); PLATELET COUNT 218 x10^3/uL (140-400); RED BLOOD COUNT 4.03 x10^6/uL (3.50-5.40); RED CELL DISTRIBUTION WIDTH 13.8 % (11.5-14.5); WHITE BLOOD COUNT 10.3 x10^3/uL (4.0-11.0)
[2018-09-07 06:16] LABS: ALBUMIN/GLOBULIN RATIO 0.8 (1.0-1.7); CALCIUM 9.5 mg/dL (8.5-10.1); CREATININE 1.8 mg/dL (0.6-1.0); GFR 33.3; POTASSIUM 3.4 mmol/L (3.5-5.1); TOTAL BILIRUBIN 0.3 mg/dL (0.2-1.0); TOTAL PROTEIN 6.9 g/dL (6.4-8.2)
[2018-09-07 07:00] VITALS: BP 133/54
[2018-09-07] MEDS ORDERED: NON FORMULARY ITEM (Insulin Aspart (Novolog Flexpen) 0 UNITS) SQ SCH (08:00)
[2018-09-07] MEDS ORDERED: INSULIN LISPRO 300 UNITS/3 ML INSULN.PEN. SQ SCH (08:00)
--- NOTE | 2018-09-07 08:09 | RAD ---
SACRUM COCCYX 3V History: Fall off of stool, hit head and buttock Comparison: March 15, 2016 pelvis radiograph Findings: 3 views sacrum and coccyx are submitted. There is again some deformity of the inferior pubic rami bilaterally. No acute fracture is identified by radiographs. There is inferior lumbar facet degenerative change and mild spondylosis. Impression: 1. No acute fracture is identified by radiographs. Electronically signed by: Nato Lyman MD (09/07/2018 8:06 AM) [facility]
[2018-09-07] MEDS: IPRATRPIUM/ALBUTEROL 0.5/2.5MG 3 ML NEBU. NEB SCH ×4 (08:30→19:56)
[2018-09-07] MEDS ORDERED: METOPROLOL SUCC 24HR ER 25 MG TAB.ER.24H. PO SCH (09:00)
[2018-09-07] MEDS: PIOGLITAZONE 15 MG TABLET. PO SCH (09:38)
[2018-09-07] MEDS: amLODIPine BESYLATE 10 MG TABLET PO SCH (09:39)
[2018-09-07] MEDS: METOPROLOL SUCC 24HR ER 25 MG TAB.ER.24H. PO SCH (09:39)
[2018-09-07] MEDS: POTASSIUM CHLORIDE 20 MEQ TABLET.ER. PO SCH (09:40)
[2018-09-07] MEDS: SERTRALINE 50 MG TABLET. PO SCH (09:40)
[2018-09-07] MEDS: GABAPENTIN 300 MG CAPSULE. PO SCH ×2 (09:40→20:35)
[2018-09-07] MEDS: metOLazone 2.5 MG TABLET PO SCH (09:40)
[2018-09-07] MEDS: ASPIRIN ENTERIC COATED 81 MG TABLET.DR. PO SCH (09:41)
[2018-09-07] MEDS: INSULIN LISPRO 300 UNITS/3 ML INSULN.PEN. SQ SCH ×3 (09:52→17:30)
[2018-09-07 11:00] VITALS: BP 111/50
--- NOTE | 2018-09-07 11:14 | PDOC2 ---
CONSULT Date of Consult Date of Consult DATE: 09/07/18 TIME: 11:14 Reason for Consult Reason for Consult: Congestive heart failure Referring Physician Referring Physician: Dr. Richard Identification/Chief Complaint Chief Complaint Back pain Source Source: Chart review, Patient History of Present Illness Reason for Visit: 73-year-old female apparently was [facility] and fell off a high stool and hurt her head and back. She denied any loss of consciousness. She also denied any chest pain, orthopnea/PND or palpitations. Past Medical History Cardiovascular: HTN, Hyperlipidemia, Other Pulmonary: Other CENTRAL NERVOUS SYSTEM: Periperal neuropathy, TIA GI: No pertinent hx Heme/Onc: No pertinent hx Hepatobiliary: No pertinent hx Psych: Anxiety, Depression Musculoskeletal: Osteoarthritis Rheumatologic: No pertinent hx Infectious disease: No pertinent hx Renal/: Chronic renal insuff, UTI, Other Endocrine: Diabetes Past Surgical History Past Surgical History: Tonsillectomy, Hysterectomy, Other Family History Family History: Hypertension Social History No ALCOHOL: none Drugs: None Lives: with Family Current Problem List Problem List Problems Medical Problems: (1) Coccyx pain Status: Acute (2) Hematoma of scalp Status: Acute (3) Hyperglycemia Status: Acute Current Medications Current Medications Current Medications Ondansetron HCl (Zofran Odt) 4 mg 1X ONCE PO Last administered on 09/06/18at 16:37; Start 09/06/18 at 16:30; Stop 09/06/18 at 16:31; Status DC Acetaminophen/ Hydrocodone Bitart (Lortab 7.5/325) 1 tab 1X ONCE PO Last administered on 09/06/18at 16:37; Start 09/06/18 at 16:30; Stop 09/06/18 at 16:31; Status DC Insulin Human Lispro (HumaLOG VIAL) 5 unit 1X ONCE SQ ; Start 09/06/18 at 16:45; Stop 09/06/18 at 16:46; Status UNV Insulin Human Regular (HumuLIN R VIAL) 5 unit 1X ONCE IV ; Start 09/06/18 at 16:45; Stop 09/06/18 at 16:46; Status DC Insulin Human Regular (HumuLIN R VIAL) 5 unit 1X ONCE SQ Last administered on 09/06/18at 17:17; Start 09/06/18 at 16:45; Stop 09/06/18 at 16:48; Status DC Fentanyl Citrate (Fentanyl 2ml Vial) 25 mcg 1X ONCE IM Last administered on 09/06/18at 18:31; Start 09/06/18 at 18:15; Stop 09/06/18 at 18:16; Status DC Sodium Chloride 1,000 ml @ 1,000 mls/hr 1X ONCE IV Last administered on 09/06/18at 19:29; Start 09/06/18 at 19:00; Stop 09/06/18 at 19:59; Status DC Ondansetron HCl (Zofran) 4 mg PRN Q8HRS PRN IV NAUSEA/VOMITING; Start 09/06/18 at 20:00; Stop 09/07/18 at 19:59 Morphine Sulfate (Morphine Sulfate) 2 mg PRN Q2HR PRN IV PAIN Last administered on 09/06/18at 23:48; Start 09/06/18 at 20:00; Stop 09/07/18 at 19:59 Potassium Chloride (Klor-Con) 20 meq 1X ONCE PO Last administered on 09/06/18at 20:42; Start 09/06/18 at 20:45; Stop 09/06/18 at 20:46; Status DC Insulin Human Lispro (HumaLOG) 0-5 UNITS TIDWMEALS SQ ; Start 09/07/18 at 08:00; Stop 09/07/18 at 08:00; Status DC Dextrose (Dextrose 50%-Water Syringe) 12.5 gm PRN Q15MIN PRN IV SEE COMMENTS; Start 09/06/18 at 20:45; Status Cancel Acetaminophen/ Hydrocodone Bitart (Lortab 5/325) 1 tab PRN Q4HRS PRN PO MODERATE PAIN; Start 09/06/18 at 21:45 Potassium Chloride (Klor-Con) 40 meq 1X ONCE PO Last administered on 09/06/18at 22:40; Start 09/06/18 at 22:00; Stop 09/06/18 at 22:01; Status DC Potassium Chloride (Klor-Con) 20 meq DAILYWBKFT PO Last administered on 09/07/18at 09:40; Start 09/07/18 at 08:00 Amlodipine Besylate (Norvasc) 10 mg DAILY PO Last administered on 09/07/18at 0 9:39; Start 09/07/18 at 09:00 Aspirin (Ecotrin) 81 mg DAILY PO Last administered on 09/07/18 09:41; Start 09/07/18 at 09:00 Atorvastatin Calcium (Lipitor) 40 mg HS PO ; Start 09/07/18 at 21:00 Gabapentin (Neurontin) 100 mg BID PO ; Start 09/06/18 at 22:00; Status Cancel Metoprolol Succinate (Toprol Xl) 1,875 mg DAILY PO ; Start 09/07/18 at 09:00; Status UNV Oxybutynin Chloride (Ditropan) 10 mg HS PO Last administered on 09/06/18at 22:39; Start 09/06/18 at 22:00 Sertraline HCl (Zoloft) 50 mg DAILY PO Last administered on 09/07/18 09:40; Start 09/07/18 at 09:00 Donepezil HCl (Aricept) 10 mg QHS PO Last administered on 09/06/18at 22:39; Start 09/06/18 at 22:00 Non-Formulary Medication (Insulin Aspart (Novolog Flexpen)) TIDWMEALS SQ ; Start 09/07/18 at 08:00; Status UNV Insulin Glargine (Lantus) 40 units QHS SQ Last administered on 09/06/18at 22:51; Start 09/06/18 at 22:00 Metolazone (Zaroxolyn) 2.5 mg DAILY PO Last administered on 09/07/18 09:40; Start 09/07/18 at 09:00 Pioglitazone HCl (Actos) 30 mg DAILY PO Last administered on 09/07/18at 09:38; Start 09/07/18 at 09:00 Insulin Human Lispro (HumaLOG) 0-9 UNITS TIDWMEALS SQ Last administered on 09/07/18 09:52; Start 09/07/18 at 08:00 Dextrose (Dextrose 50%-Water Syringe) 12.5 gm PRN Q15MIN PRN IV SEE COMMENTS; Start 09/06/18 at 21:45 Albuterol/ Ipratropium (Duoneb) 3 ml RTQID NEB Last administered on 09/07/18at 08:30; Start 09/07/18 at 08:00 Enoxaparin Sodium (Lovenox Per Pharmacy Prophylaxis Dosing) 1 each PRN DAILY PRN MC SEE COMMENTS; Start 09/06/18 at 21:45 Magnesium Sulfate 50 ml @ 25 mls/hr 1X ONCE IV Last administered on 09/06/18at 22:51; Start 09/06/18 at 23:00; Stop 09/07/18 at 00:59; Status DC Enoxaparin Sodium (Lovenox 40mg Syringe) 40 mg Q24H SQ Last administered on 09/06/18at 22:41; Start 09/06/18 at 22:00 Metoprolol Succinate (Toprol Xl) 75 mg DAILY PO Last administered on 09/07/18at 09:39; Start 09/07/18 at 09:00 Gabapentin (Neurontin) 300 mg BID PO Last administered on 09/07/18at 09:40; Start 09/06/18 at 23:00 Diclofenac Sodium (Voltaren) 1 yudy BID TP ; Start 09/07/18 at 10:00 Active Scripts Active Lasix (Furosemide) 40 Mg Tablet 1 Tab PO BID Hydrocodone-Apap 5-325 (Hydrocodone Bit/Acetaminophen) 1 Each Tablet 1 Tab PO PRN Q4HRS PRN 7 Days Novolog Flexpen (Insulin Aspart) 100 Unit/1 Ml Insuln.pen 0 Units SQ TIDWMEALS 30 Days Reported Gabapentin (Gabapentin) 300 Mg Capsule 300 Mg PO BID Gabapentin (Gabapentin) 300 Mg Capsule 300 Mg PO BID Metoprolol Succinate ( Xl ) (Metoprolol Succinate) 25 Mg Tab.er.24h 3 Tab PO DAILY Lasix (Furosemide) 40 Mg Tablet 1 Tab PO PRN DAILY PRN Give 40 mg PO Lasix PRN if pt gains 2 lbs in 1 day or 5 lbs in 1 week; if pt also shows signs of CHF exacerbation Furosemide 40 Mg Tablet 1 Tab PO BID 2 Days Losartan Potassium 50 Mg Tablet 50 Mg PO DAILY Metolazone 2.5 Mg Tablet 2.5 Mg PO DAILY Oxybutynin Chloride 5 Mg Tablet 10 Mg PO HS Levemir Flextouch (Insulin Detemir) 100 Unit/1 Ml Insuln.pen 40 Unit SQ HS Pioglitazone Hcl 30 Mg Tablet 30 Mg PO DAILY Zoloft (Sertraline Hcl) 50 Mg Tablet 1 Tab PO DAILY Atorvastatin Calcium 40 Mg Tablet 40 Mg PO HS Aspirin Ec (Aspirin) 81 Mg Tablet.dr 81 Mg PO Amlodipine Besylate 10 Mg Tablet 10 Mg PO DAILY Donepezil Hcl 10 Mg Tablet 10 Mg PO HS Allergies Allergies: Coded Allergies: No Known Drug Allergies (Unverified , 08/04/16) ROS PSYCHOLOGICAL ROS: No: Hallucinations Eyes: No Loss of vision HEENT: No: Epistaxis Respiratory: No: Hemoptysis, Shortness of breath Cardiovascular: No Chest Pain Gastrointestinal: No Nausea, No Vomiting Genitourinary: No Hematuria Neurological: No Seizures Skin: No Rash Physical Exam General: No acute distress HEENT: PERRLA Lungs: Clear to auscultation Heart: Regular rate Abdomen: Soft Extremities: No edema Psych/Mental Status: Mood NL Vitals VITALS Vital Signs Date Time Temp Pulse Resp B/P (MAP) Pulse Ox O2 Delivery O2 Flow Rate FiO2 09/07/18 09:39 65 133/54 09/07/18 08:33 99 Nasal Cannula 2.0 09/07/18 07:00 98.1 16 98.1 Labs Labs Laboratory Tests Test 09/06/18 16:24 09/06/18 18:44 09/06/18 19:40 09/06/18 20:57 Glucose (Fingerstick) 374 mg/dL (70-99) 305 mg/dL (70-99) 228 mg/dL (70-99) White Blood Count 11.6 x10^3/uL (4.0-11.0) Red Blood Count 4.20 x10^6/uL (3.50-5.40) Hemoglobin 12.3 g/dL (12.0-15.5) Hematocrit 37.7 % (36.0-47.0) Mean Corpuscular Volume 90 fL (79-100) Mean Corpuscular Hemoglobin 29 pg (25-35) Mean Corpuscular Hemoglobin Concent 33 g/dL (31-37) Red Cell Distribution Width 13.8 % (11.5-14.5) Platelet Count 226 x10^3/uL (140-400) Neutrophils (%) (Auto) 78 % (31-73) Lymphocytes (%) (Auto) 16 % (24-48) Monocytes (%) (Auto) 6 % (0-9) Eosinophils (%) (Auto) 1 % (0-3) Basophils (%) (Auto) 1 % (0-3) Neutrophils # (Auto) 9.0 x10^3uL (1.8-7.7) Lymphocytes # (Auto) 1.8 x10^3/uL (1.0-4.8) Monocytes # (Auto) 0.7 x10^3/uL (0.0-1.1) Eosinophils # (Auto) 0.1 x10^3/uL (0.0-0.7) Basophils # (Auto) 0.1 x10^3/uL (0.0-0.2) Prothrombin Time 14.2 SEC (11.7-14.0) Prothromb Time International Ratio 1.1 (0.8-1.1) Activated Partial Thromboplast Time 26 SEC (24-38) Sodium Level 141 mmol/L (136-145) Potassium Level 2.8 mmol/L (3.5-5.1) Chloride Level 99 mmol/L (98-107) Carbon Dioxide Level 35 mmol/L (21-32) Anion Gap 7 (6-14) Blood Urea Nitrogen 39 mg/dL (7-20) Creatinine 1.9 mg/dL (0.6-1.0) Estimated GFR (Cockcroft-Gault) 31.3 BUN/Creatinine Ratio 21 (6-20) Glucose Level 283 mg/dL (70-99) Calcium Level 9.8 mg/dL (8.5-10.1) Total Bilirubin 0.3 mg/dL (0.2-1.0) Aspartate Amino Transf (AST/SGOT) 14 U/L (15-37) Alanine Aminotransferase (ALT/SGPT) 13 U/L (14-59) Alkaline Phosphatase 121 U/L (46-116) Total Protein 7.4 g/dL (6.4-8.2) Albumin 3.3 g/dL (3.4-5.0) Albumin/Globulin Ratio 0.8 (1.0-1.7) Test 09/07/18 00:01 09/07/18 04:30 09/07/18 07:40 Magnesium Level 1.3 mg/dL (1.8-2.4) White Blood Count 10.3 x10^3/uL (4.0-11.0) Red Blood Count 4.03 x10^6/uL (3.50-5.40) Hemoglobin 11.9 g/dL (12.0-15.5) Hematocrit 36.4 % (36.0-47.0) Mean Corpuscular Volume 90 fL (79-100) Mean Corpuscular Hemoglobin 30 pg (25-35) Mean Corpuscular Hemoglobin Concent 33 g/dL (31-37) Red Cell Distribution Width 13.8 % (11.5-14.5) Platelet Count 218 x10^3/uL (140-400) Neutrophils (%) (Auto) 69 % (31-73) Lymphocytes (%) (Auto) 21 % (24-48) Monocytes (%) (Auto) 8 % (0-9) Eosinophils (%) (Auto) 1 % (0-3) Basophils (%) (Auto) 1 % (0-3) Neutrophils # (Auto) 7.1 x10^3uL (1.8-7.7) Lymphocytes # (Auto) 2.2 x10^3/uL (1.0-4.8) Monocytes # (Auto) 0.8 x10^3/uL (0.0-1.1) Eosinophils # (Auto) 0.1 x10^3/uL (0.0-0.7) Basophils # (Auto) 0.1 x10^3/uL (0.0-0.2) Sodium Level 142 mmol/L (136-145) Potassium Level 3.4 mmol/L (3.5-5.1) Chloride Level 101 mmol/L (98-107) Carbon Dioxide Level 34 mmol/L (21-32) Anion Gap 7 (6-14) Blood Urea Nitrogen 34 mg/dL (7-20) Creatinine 1.8 mg/dL (0.6-1.0) Estimated GFR (Cockcroft-Gault) 33.3 BUN/Creatinine Ratio 19 (6-20) Glucose Level 207 mg/dL (70-99) Calcium Level 9.5 mg/dL (8.5-10.1) Total Bilirubin 0.3 mg/dL (0.2-1.0) Aspartate Amino Transf (AST/SGOT) 14 U/L (15-37) Alanine Aminotransferase (ALT/SGPT) 10 U/L (14-59) Alkaline Phosphatase 104 U/L (46-116) Total Protein 6.9 g/dL (6.4-8.2) Albumin 3.0 g/dL (3.4-5.0) Albumin/Globulin Ratio 0.8 (1.0-1.7) Glucose (Fingerstick) 187 mg/dL (70-99) Laboratory Tests Test 09/06/18 16:24 09/06/18 18:44 09/06/18 19:40 09/06/18 20:57 Glucose (Fingerstick) 374 mg/dL (70-99) 305 mg/dL (70-99) 228 mg/dL (70-99) White Blood Count 11.6 x10^3/uL (4.0-11.0) Red Blood Count 4.20 x10^6/uL (3.50-5.40) Hemoglobin 12.3 g/dL (12.0-15.5) Hematocrit 37.7 % (36.0-47.0) Mean Corpuscular Volume 90 fL (79-100) Mean Corpuscular Hemoglobin 29 pg (25-35) Mean Corpuscular Hemoglobin Concent 33 g/dL (31-37) Red Cell Distribution Width 13.8 % (11.5-14.5) Platelet Count 226 x10^3/uL (140-400) Neutrophils (%) (Auto) 78 % (31-73) Lymphocytes (%) (Auto) 16 % (24-48) Monocytes (%) (Auto) 6 % (0-9) Eosinophils (%) (Auto) 1 % (0-3) Basophils (%) (Auto) 1 % (0-3) Neutrophils # (Auto) 9.0 x10^3uL (1.8-7.7) Lymphocytes # (Auto) 1.8 x10^3/uL (1.0-4.8) Monocytes # (Auto) 0.7 x10^3/uL (0.0-1.1) Eosinophils # (Auto) 0.1 x10^3/uL (0.0-0.7) Basophils # (Auto) 0.1 x10^3/uL (0.0-0.2) Prothrombin Time 14.2 SEC (11.7-14.0) Prothromb Time International Ratio 1.1 (0.8-1.1) Activated Partial Thromboplast Time 26 SEC (24-38) Sodium Level 141 mmol/L (136-145) Potassium Level 2.8 mmol/L (3.5-5.1) Chloride Level 99 mmol/L (98-107) Carbon Dioxide Level 35 mmol/L (21-32) Anion Gap 7 (6-14) Blood Urea Nitrogen 39 mg/dL (7-20) Creatinine 1.9 mg/dL (0.6-1.0) Estimated GFR (Cockcroft-Gault) 31.3 BUN/Creatinine Ratio 21 (6-20) Glucose Level 283 mg/dL (70-99) Calcium Level 9.8 mg/dL (8.5-10.1) Total Bilirubin 0.3 mg/dL (0.2-1.0) Aspartate Amino Transf (AST/SGOT) 14 U/L (15-37) Alanine Aminotransferase (ALT/SGPT) 13 U/L (14-59) Alkaline Phosphatase 121 U/L (46-116) Total Protein 7.4 g/dL (6.4-8.2) Albumin 3.3 g/dL (3.4-5.0) Albumin/Globulin Ratio 0.8 (1.0-1.7) Test 09/07/18 00:01 09/07/18 04:30 09/07/18 07:40 Magnesium Level 1.3 mg/dL (1.8-2.4) White Blood Count 10.3 x10^3/uL (4.0-11.0) Red Blood Count 4.03 x10^6/uL (3.50-5.40) Hemoglobin 11.9 g/dL (12.0-15.5) Hematocrit 36.4 % (36.0-47.0) Mean Corpuscular Volume 90 fL (79-100) Mean Corpuscular Hemoglobin 30 pg (25-35) Mean Corpuscular Hemoglobin Concent 33 g/dL (31-37) Red Cell Distribution Width 13.8 % (11.5-14.5) Platelet Count 218 x10^3/uL (140-400) Neutrophils (%) (Auto) 69 % (31-73) Lymphocytes (%) (Auto) 21 % (24-48) Monocytes (%) (Auto) 8 % (0-9) Eosinophils (%) (Auto) 1 % (0-3) Basophils (%) (Auto) 1 % (0-3) Neutrophils # (Auto) 7.1 x10^3uL (1.8-7.7) Lymphocytes # (Auto) 2.2 x10^3/uL (1.0-4.8) Monocytes # (Auto) 0.8 x10^3/uL (0.0-1.1) Eosinophils # (Auto) 0.1 x10^3/uL (0.0-0.7) Basophils # (Auto) 0.1 x10^3/uL (0.0-0.2) Sodium Level 142 mmol/L (136-145) Potassium Level 3.4 mmol/L (3.5-5.1) Chloride Level 101 mmol/L (98-107) Carbon Dioxide Level 34 mmol/L (21-32) Anion Gap 7 (6-14) Blood Urea Nitrogen 34 mg/dL (7-20) Creatinine 1.8 mg/dL (0.6-1.0) Estimated GFR (Cockcroft-Gault) 33.3 BUN/Creatinine Ratio 19 (6-20) Glucose Level 207 mg/dL (70-99) Calcium Level 9.5 mg/dL (8.5-10.1) Total Bilirubin 0.3 mg/dL (0.2-1.0) Aspartate Amino Transf (AST/SGOT) 14 U/L (15-37) Alanine Aminotransferase (ALT/SGPT) 10 U/L (14-59) Alkaline Phosphatase 104 U/L (46-116) Total Protein 6.9 g/dL (6.4-8.2) Albumin 3.0 g/dL (3.4-5.0) Albumin/Globulin Ratio 0.8 (1.0-1.7) Glucose (Fingerstick) 187 mg/dL (70-99) Assessment/Plan Assessment/Plan 1. s/p mechanical fall without any loss of consciousness. CT head showed subgaleal hematoma without any acute intracranial process. Continue supportive care per IM. 2. Chronic diastolic heart failure: 2-D echo in May 2018 showed EF 55% with diastolic dysfunction. She is clinically well compensated. Continue current medical regimen. 3. Acute on chronic renal insufficiency: Probably secondary to dehydration. Nephrology team following. 4. Hypertension: Controlled 5. Hyperlipidemia: Continue statins 6. Diabetes mellitus type 2: Treat per IM 7. Paroxysmal atrial fibrillation: Presently in sinus rhythm. She is a poor candidate for long-term anticoagulation due to fall risk. 8. PAD s/p pop-peroneal bypass surgery in the past, clinically stable 9. Dementia with cognitive decline Thank you for your consultation MILTON CASTANEDA MD Sep 07, 2018 11:14
--- NOTE | 2018-09-07 11:50 | PDOC ---
PROGRESS NOTES Chief Complaint Chief Complaint Head trauma, subgaleal hematoma History of Present Illness History of Present Illness Patient was sitting up in a chair today. She states she still has some minor head tenderness. Discussed case with Dr. Watts Vitals Vitals Vital Signs Date Time Temp Pulse Resp B/P (MAP) Pulse Ox O2 Delivery O2 Flow Rate FiO2 09/07/18 09:39 65 133/54 09/07/18 08:33 99 Nasal Cannula 2.0 09/07/18 07:00 98.1 16 98.1 Physical Exam General: Alert, Oriented X3, mild distress Heart: Regular rate, Normal S1, Normal S2, No murmurs Lungs: Clear (No wheezes, rales, or rhonchi) Abdomen: Soft, No tenderness, No masses Extremities: No edema, Normal pulses, No tenderness/swelling Skin: No rashes, No breakdown, No significant lesion Labs LABS Laboratory Tests Test 09/06/18 16:24 09/06/18 18:44 09/06/18 19:40 09/06/18 20:57 Glucose (Fingerstick) 374 mg/dL (70-99) 305 mg/dL (70-99) 228 mg/dL (70-99) White Blood Count 11.6 x10^3/uL (4.0-11.0) Red Blood Count 4.20 x10^6/uL (3.50-5.40) Hemoglobin 12.3 g/dL (12.0-15.5) Hematocrit 37.7 % (36.0-47.0) Mean Corpuscular Volume 90 fL (79-100) Mean Corpuscular Hemoglobin 29 pg (25-35) Mean Corpuscular Hemoglobin Concent 33 g/dL (31-37) Red Cell Distribution Width 13.8 % (11.5-14.5) Platelet Count 226 x10^3/uL (140-400) Neutrophils (%) (Auto) 78 % (31-73) Lymphocytes (%) (Auto) 16 % (24-48) Monocytes (%) (Auto) 6 % (0-9) Eosinophils (%) (Auto) 1 % (0-3) Basophils (%) (Auto) 1 % (0-3) Neutrophils # (Auto) 9.0 x10^3uL (1.8-7.7) Lymphocytes # (Auto) 1.8 x10^3/uL (1.0-4.8) Monocytes # (Auto) 0.7 x10^3/uL (0.0-1.1) Eosinophils # (Auto) 0.1 x10^3/uL (0.0-0.7) Basophils # (Auto) 0.1 x10^3/uL (0.0-0.2) Prothrombin Time 14.2 SEC (11.7-14.0) Prothromb Time International Ratio 1.1 (0.8-1.1) Activated Partial Thromboplast Time 26 SEC (24-38) Sodium Level 141 mmol/L (136-145) Potassium Level 2.8 mmol/L (3.5-5.1) Chloride Level 99 mmol/L (98-107) Carbon Dioxide Level 35 mmol/L (21-32) Anion Gap 7 (6-14) Blood Urea Nitrogen 39 mg/dL (7-20) Creatinine 1.9 mg/dL (0.6-1.0) Estimated GFR (Cockcroft-Gault) 31.3 BUN/Creatinine Ratio 21 (6-20) Glucose Level 283 mg/dL (70-99) Calcium Level 9.8 mg/dL (8.5-10.1) Total Bilirubin 0.3 mg/dL (0.2-1.0) Aspartate Amino Transf (AST/SGOT) 14 U/L (15-37) Alanine Aminotransferase (ALT/SGPT) 13 U/L (14-59) Alkaline Phosphatase 121 U/L (46-116) Total Protein 7.4 g/dL (6.4-8.2) Albumin 3.3 g/dL (3.4-5.0) Albumin/Globulin Ratio 0.8 (1.0-1.7) Test 09/07/18 00:01 09/07/18 04:30 09/07/18 07:40 Magnesium Level 1.3 mg/dL (1.8-2.4) White Blood Count 10.3 x10^3/uL (4.0-11.0) Red Blood Count 4.03 x10^6/uL (3.50-5.40) Hemoglobin 11.9 g/dL (12.0-15.5) Hematocrit 36.4 % (36.0-47.0) Mean Corpuscular Volume 90 fL (79-100) Mean Corpuscular Hemoglobin 30 pg (25-35) Mean Corpuscular Hemoglobin Concent 33 g/dL (31-37) Red Cell Distribution Width 13.8 % (11.5-14.5) Platelet Count 218 x10^3/uL (140-400) Neutrophils (%) (Auto) 69 % (31-73) Lymphocytes (%) (Auto) 21 % (24-48) Monocytes (%) (Auto) 8 % (0-9) Eosinophils (%) (Auto) 1 % (0-3) Basophils (%) (Auto) 1 % (0-3) Neutrophils # (Auto) 7.1 x10^3uL (1.8-7.7) Lymphocytes # (Auto) 2.2 x10^3/uL (1.0-4.8) Monocytes # (Auto) 0.8 x10^3/uL (0.0-1.1) Eosinophils # (Auto) 0.1 x10^3/uL (0.0-0.7) Basophils # (Auto) 0.1 x10^3/uL (0.0-0.2) Sodium Level 142 mmol/L (136-145) Potassium Level 3.4 mmol/L (3.5-5.1) Chloride Level 101 mmol/L (98-107) Carbon Dioxide Level 34 mmol/L (21-32) Anion Gap 7 (6-14) Blood Urea Nitrogen 34 mg/dL (7-20) Creatinine 1.8 mg/dL (0.6-1.0) Estimated GFR (Cockcroft-Gault) 33.3 BUN/Creatinine Ratio 19 (6-20) Glucose Level 207 mg/dL (70-99) Calcium Level 9.5 mg/dL (8.5-10.1) Total Bilirubin 0.3 mg/dL (0.2-1.0) Aspartate Amino Transf (AST/SGOT) 14 U/L (15-37) Alanine Aminotransferase (ALT/SGPT) 10 U/L (14-59) Alkaline Phosphatase 104 U/L (46-116) Total Protein 6.9 g/dL (6.4-8.2) Albumin 3.0 g/dL (3.4-5.0) Albumin/Globulin Ratio 0.8 (1.0-1.7) Glucose (Fingerstick) 187 mg/dL (70-99) Review of Systems Review of Systems Patient has minor head tenderness She denies fevers, chills, N/V, CP, SOB, diarrhea. Assessment and Plan Assessmemt and Plan Problems Medical Problems: (1) Coccyx pain Status: Acute (2) Hematoma of scalp Status: Acute (3) Hyperglycemia Status: Acute Assessment: Head trauma, no LOC Subgaleal hematoma Hypokalemia- 3.4 HTN HLD CHF Chronic renal failure- Cr 1.8 DM Peripheral neuropathy TIA Anxiety and depression OA Plan: Head CT 09/06- large subgaleal hematoma at vertex 20 mg KCL Po Q day Monitor K level On nasal canula Discussed with Dr. Watts Cardiology consult Nephrology consult Pain management PT/OT F/u labs Home meds DVt prophylaxis SNU eval Comment Review of Relevant I have reviewed the following items joel (where applicable) has been applied. Labs Laboratory Tests Test 09/06/18 16:24 09/06/18 18:44 09/06/18 19:40 09/06/18 20:57 Glucose (Fingerstick) 374 mg/dL (70-99) 305 mg/dL (70-99) 228 mg/dL (70-99) White Blood Count 11.6 x10^3/uL (4.0-11.0) Red Blood Count 4.20 x10^6/uL (3.50-5.40) Hemoglobin 12.3 g/dL (12.0-15.5) Hematocrit 37.7 % (36.0-47.0) Mean Corpuscular Volume 90 fL (79-100) Mean Corpuscular Hemoglobin 29 pg (25-35) Mean Corpuscular Hemoglobin Concent 33 g/dL (31-37) Red Cell Distribution Width 13.8 % (11.5-14.5) Platelet Count 226 x10^3/uL (140-400) Neutrophils (%) (Auto) 78 % (31-73) Lymphocytes (%) (Auto) 16 % (24-48) Monocytes (%) (Auto) 6 % (0-9) Eosinophils (%) (Auto) 1 % (0-3) Basophils (%) (Auto) 1 % (0-3) Neutrophils # (Auto) 9.0 x10^3uL (1.8-7.7) Lymphocytes # (Auto) 1.8 x10^3/uL (1.0-4.8) Monocytes # (Auto) 0.7 x10^3/uL (0.0-1.1) Eosinophils # (Auto) 0.1 x10^3/uL (0.0-0.7) Basophils # (Auto) 0.1 x10^3/uL (0.0-0.2) Prothrombin Time 14.2 SEC (11.7-14.0) Prothromb Time International Ratio 1.1 (0.8-1.1) Activated Partial Thromboplast Time 26 SEC (24-38) Sodium Level 141 mmol/L (136-145) Potassium Level 2.8 mmol/L (3.5-5.1) Chloride Level 99 mmol/L (98-107) Carbon Dioxide Level 35 mmol/L (21-32) Anion Gap 7 (6-14) Blood Urea Nitrogen 39 mg/dL (7-20) Creatinine 1.9 mg/dL (0.6-1.0) Estimated GFR (Cockcroft-Gault) 31.3 BUN/Creatinine Ratio 21 (6-20) Glucose Level 283 mg/dL (70-99) Calcium Level 9.8 mg/dL (8.5-10.1) Total Bilirubin 0.3 mg/dL (0.2-1.0) Aspartate Amino Transf (AST/SGOT) 14 U/L (15-37) Alanine Aminotransferase (ALT/SGPT) 13 U/L (14-59) Alkaline Phosphatase 121 U/L (46-116) Total Protein 7.4 g/dL (6.4-8.2) Albumin 3.3 g/dL (3.4-5.0) Albumin/Globulin Ratio 0.8 (1.0-1.7) Test 09/07/18 00:01 09/07/18 04:30 09/07/18 07:40 Magnesium Level 1.3 mg/dL (1.8-2.4) White Blood Count 10.3 x10^3/uL (4.0-11.0) Red Blood Count 4.03 x10^6/uL (3.50-5.40) Hemoglobin 11.9 g/dL (12.0-15.5) Hematocrit 36.4 % (36.0-47.0) Mean Corpuscular Volume 90 fL (79-100) Mean Corpuscular Hemoglobin 30 pg (25-35) Mean Corpuscular Hemoglobin Concent 33 g/dL (31-37) Red Cell Distribution Width 13.8 % (11.5-14.5) Platelet Count 218 x10^3/uL (140-400) Neutrophils (%) (Auto) 69 % (31-73) Lymphocytes (%) (Auto) 21 % (24-48) Monocytes (%) (Auto) 8 % (0-9) Eosinophils (%) (Auto) 1 % (0-3) Basophils (%) (Auto) 1 % (0-3) Neutrophils # (Auto) 7.1 x10^3uL (1.8-7.7) Lymphocytes # (Auto) 2.2 x10^3/uL (1.0-4.8) Monocytes # (Auto) 0.8 x10^3/uL (0.0-1.1) Eosinophils # (Auto) 0.1 x10^3/uL (0.0-0.7) Basophils # (Auto) 0.1 x10^3/uL (0.0-0.2) Sodium Level 142 mmol/L (136-145) Potassium Level 3.4 mmol/L (3.5-5.1) Chloride Level 101 mmol/L (98-107) Carbon Dioxide Level 34 mmol/L (21-32) Anion Gap 7 (6-14) Blood Urea Nitrogen 34 mg/dL (7-20) Creatinine 1.8 mg/dL (0.6-1.0) Estimated GFR (Cockcroft-Gault) 33.3 BUN/Creatinine Ratio 19 (6-20) Glucose Level 207 mg/dL (70-99) Calcium Level 9.5 mg/dL (8.5-10.1) Total Bilirubin 0.3 mg/dL (0.2-1.0) Aspartate Amino Transf (AST/SGOT) 14 U/L (15-37) Alanine Aminotransferase (ALT/SGPT) 10 U/L (14-59) Alkaline Phosphatase 104 U/L (46-116) Total Protein 6.9 g/dL (6.4-8.2) Albumin 3.0 g/dL (3.4-5.0) Albumin/Globulin Ratio 0.8 (1.0-1.7) Glucose (Fingerstick) 187 mg/dL (70-99) Laboratory Tests Test 09/06/18 16:24 09/06/18 18:44 09/06/18 19:40 09/06/18 20:57 Glucose (Fingerstick) 374 mg/dL (70-99) 305 mg/dL (70-99) 228 mg/dL (70-99) White Blood Count 11.6 x10^3/uL (4.0-11.0) Red Blood Count 4.20 x10^6/uL (3.50-5.40) Hemoglobin 12.3 g/dL (12.0-15.5) Hematocrit 37.7 % (36.0-47.0) Mean Corpuscular Volume 90 fL (79-100) Mean Corpuscular Hemoglobin 29 pg (25-35) Mean Corpuscular Hemoglobin Concent 33 g/dL (31-37) Red Cell Distribution Width 13.8 % (11.5-14.5) Platelet Count 226 x10^3/uL (140-400) Neutrophils (%) (Auto) 78 % (31-73) Lymphocytes (%) (Auto) 16 % (24-48) Monocytes (%) (Auto) 6 % (0-9) Eosinophils (%) (Auto) 1 % (0-3) Basophils (%) (Auto) 1 % (0-3) Neutrophils # (Auto) 9.0 x10^3uL (1.8-7.7) Lymphocytes # (Auto) 1.8 x10^3/uL (1.0-4.8) Monocytes # (Auto) 0.7 x10^3/uL (0.0-1.1) Eosinophils # (Auto) 0.1 x10^3/uL (0.0-0.7) Basophils # (Auto) 0.1 x10^3/uL (0.0-0.2) Prothrombin Time 14.2 SEC (11.7-14.0) Prothromb Time International Ratio 1.1 (0.8-1.1) Activated Partial Thromboplast Time 26 SEC (24-38) Sodium Level 141 mmol/L (136-145) Potassium Level 2.8 mmol/L (3.5-5.1) Chloride Level 99 mmol/L (98-107) Carbon Dioxide Level 35 mmol/L (21-32) Anion Gap 7 (6-14) Blood Urea Nitrogen 39 mg/dL (7-20) Creatinine 1.9 mg/dL (0.6-1.0) Estimated GFR (Cockcroft-Gault) 31.3 BUN/Creatinine Ratio 21 (6-20) Glucose Level 283 mg/dL (70-99) Calcium Level 9.8 mg/dL (8.5-10.1) Total Bilirubin 0.3 mg/dL (0.2-1.0) Aspartate Amino Transf (AST/SGOT) 14 U/L (15-37) Alanine Aminotransferase (ALT/SGPT) 13 U/L (14-59) Alkaline Phosphatase 121 U/L (46-116) Total Protein 7.4 g/dL (6.4-8.2) Albumin 3.3 g/dL (3.4-5.0) Albumin/Globulin Ratio 0.8 (1.0-1.7) Test 09/07/18 00:01 09/07/18 04:30 09/07/18 07:40 Magnesium Level 1.3 mg/dL (1.8-2.4) White Blood Count 10.3 x10^3/uL (4.0-11.0) Red Blood Count 4.03 x10^6/uL (3.50-5.40) Hemoglobin 11.9 g/dL (12.0-15.5) Hematocrit 36.4 % (36.0-47.0) Mean Corpuscular Volume 90 fL (79-100) Mean Corpuscular Hemoglobin 30 pg (25-35) Mean Corpuscular Hemoglobin Concent 33 g/dL (31-37) Red Cell Distribution Width 13.8 % (11.5-14.5) Platelet Count 218 x10^3/uL (140-400) Neutrophils (%) (Auto) 69 % (31-73) Lymphocytes (%) (Auto) 21 % (24-48) Monocytes (%) (Auto) 8 % (0-9) Eosinophils (%) (Auto) 1 % (0-3) Basophils (%) (Auto) 1 % (0-3) Neutrophils # (Auto) 7.1 x10^3uL (1.8-7.7) Lymphocytes # (Auto) 2.2 x10^3/uL (1.0-4.8) Monocytes # (Auto) 0.8 x10^3/uL (0.0-1.1) Eosinophils # (Auto) 0.1 x10^3/uL (0.0-0.7) Basophils # (Auto) 0.1 x10^3/uL (0.0-0.2) Sodium Level 142 mmol/L (136-145) Potassium Level 3.4 mmol/L (3.5-5.1) Chloride Level 101 mmol/L (98-107) Carbon Dioxide Level 34 mmol/L (21-32) Anion Gap 7 (6-14) Blood Urea Nitrogen 34 mg/dL (7-20) Creatinine 1.8 mg/dL (0.6-1.0) Estimated GFR (Cockcroft-Gault) 33.3 BUN/Creatinine Ratio 19 (6-20) Glucose Level 207 mg/dL (70-99) Calcium Level 9.5 mg/dL (8.5-10.1) Total Bilirubin 0.3 mg/dL (0.2-1.0) Aspartate Amino Transf (AST/SGOT) 14 U/L (15-37) Alanine Aminotransferase (ALT/SGPT) 10 U/L (14-59) Alkaline Phosphatase 104 U/L (46-116) Total Protein 6.9 g/dL (6.4-8.2) Albumin 3.0 g/dL (3.4-5.0) Albumin/Globulin Ratio 0.8 (1.0-1.7) Glucose (Fingerstick) 187 mg/dL (70-99) Medications Current Medications Ondansetron HCl (Zofran Odt) 4 mg 1X ONCE PO Last administered on 09/06/18at 16:37; Start 09/06/18 at 16:30; Stop 09/06/18 at 16:31; Status DC Acetaminophen/ Hydrocodone Bitart (Lortab 7.5/325) 1 tab 1X ONCE PO Last administered on 09/06/18at 16:37; Start 09/06/18 at 16:30; Stop 09/06/18 at 16:31; Status DC Insulin Human Lispro (HumaLOG VIAL) 5 unit 1X ONCE SQ ; Start 09/06/18 at 16:45; Stop 09/06/18 at 16:46; Status UNV Insulin Human Regular (HumuLIN R VIAL) 5 unit 1X ONCE IV ; Start 09/06/18 at 16:45; Stop 09/06/18 at 16:46; Status DC Insulin Human Regular (HumuLIN R VIAL) 5 unit 1X ONCE SQ Last administered on 09/06/18at 17:17; Start 09/06/18 at 16:45; Stop 09/06/18 at 16:48; Status DC Fentanyl Citrate (Fentanyl 2ml Vial) 25 mcg 1X ONCE IM Last administered on 09/06/18at 18:31; Start 09/06/18 at 18:15; Stop 09/06/18 at 18:16; Status DC Sodium Chloride 1,000 ml @ 1,000 mls/hr 1X ONCE IV Last administered on 09/06/18at 19:29; Start 09/06/18 at 19:00; Stop 09/06/18 at 19:59; Status DC Ondansetron HCl (Zofran) 4 mg PRN Q8HRS PRN IV NAUSEA/VOMITING; Start 09/06/18 at 20:00; Stop 09/07/18 at 19:59 Morphine Sulfate (Morphine Sulfate) 2 mg PRN Q2HR PRN IV PAIN Last administered on 09/06/18at 23:48; Start 09/06/18 at 20:00; Stop 09/07/18 at 19:59 Potassium Chloride (Klor-Con) 20 meq 1X ONCE PO Last administered on 09/06/18at 20:42; Start 09/06/18 at 20:45; Stop 09/06/18 at 20:46; Status DC Insulin Human Lispro (HumaLOG) 0-5 UNITS TIDWMEALS SQ ; Start 09/07/18 at 08:00; Stop 09/07/18 at 08:00; Status DC Dextrose (Dextrose 50%-Water Syringe) 12.5 gm PRN Q15MIN PRN IV SEE COMMENTS; Start 09/06/18 at 20:45; Status Cancel Acetaminophen/ Hydrocodone Bitart (Lortab 5/325) 1 tab PRN Q4HRS PRN PO MODERATE PAIN; Start 09/06/18 at 21:45 Potassium Chloride (Klor-Con) 40 meq 1X ONCE PO Last administered on 09/06/18 22:40; Start 09/06/18 at 22:00; Stop 09/06/18 at 22:01; Status DC Potassium Chloride (Klor-Con) 20 meq DAILYWBKFT PO Last administered on 09/07/18 09:40; Start 09/07/18 at 08:00 Amlodipine Besylate (Norvasc) 10 mg DAILY PO Last administered on 09/07/18 09:39; Start 09/07/18 at 09:00 Aspirin (Ecotrin) 81 mg DAILY PO Last administered on 09/07/18 09:41; Start 09/07/18 at 09:00 Atorvastatin Calcium (Lipitor) 40 mg HS PO ; Start 09/07/18 at 21:00 Gabapentin (Neurontin) 100 mg BID PO ; Start 09/06/18 at 22:00; Status Cancel Metoprolol Succinate (Toprol Xl) 1,875 mg DAILY PO ; Start 09/07/18 at 09:00; Status UNV Oxybutynin Chloride (Ditropan) 10 mg HS PO Last administered on 09/06/18 22:39; Start 09/06/18 at 22:00 Sertraline HCl (Zoloft) 50 mg DAILY PO Last administered on 09/07/18 09:40; Start 09/07/18 at 09:00 Donepezil HCl (Aricept) 10 mg QHS PO Last administered on 09/06/18 22:39; Start 09/06/18 at 22:00 Non-Formulary Medication (Insulin Aspart (Novolog Flexpen)) TIDWMEALS SQ ; Start 09/07/18 at 08:00; Status UNV Insulin Glargine (Lantus) 40 units QHS SQ Last administered on 09/06/18 22:51; Start 09/06/18 at 22:00 Metolazone (Zaroxolyn) 2.5 mg DAILY PO Last administered on 09/07/18 09:40; Start 09/07/18 at 09:00 Pioglitazone HCl (Actos) 30 mg DAILY PO Last administered on 09/07/18 09:38; Start 09/07/18 at 09:00 Insulin Human Lispro (HumaLOG) 0-9 UNITS TIDWMEALS SQ Last administered on 4/27/19at 09:52; Start 09/07/18 at 08:00 Dextrose (Dextrose 50%-Water Syringe) 12.5 gm PRN Q15MIN PRN IV SEE COMMENTS; Start 09/06/18 at 21:45 Albuterol/ Ipratropium (Duoneb) 3 ml RTQID NEB Last administered on 09/07/18at 08:30; Start 09/07/18 at 08:00 Enoxaparin Sodium (Lovenox Per Pharmacy Prophylaxis Dosing) 1 each PRN DAILY PRN MC SEE COMMENTS; Start 09/06/18 at 21:45 Magnesium Sulfate 50 ml @ 25 mls/hr 1X ONCE IV Last administered on 09/06/18at 22:51; Start 09/06/18 at 23:00; Stop 09/07/18 at 00:59; Status DC Enoxaparin Sodium (Lovenox 40mg Syringe) 40 mg Q24H SQ Last administered on 09/06/18at 22:41; Start 09/06/18 at 22:00 Metoprolol Succinate (Toprol Xl) 75 mg DAILY PO Last administered on 09/07/18at 09:39; Start 09/07/18 at 09:00 Gabapentin (Neurontin) 300 mg BID PO Last administered on 09/07/18at 09:40; Start 09/06/18 at 23:00 Diclofenac Sodium (Voltaren) 1 yudy BID TP ; Start 09/07/18 at 10:00 Active Scripts Active Lasix (Furosemide) 40 Mg Tablet 1 Tab PO BID Hydrocodone-Apap 5-325 (Hydrocodone Bit/Acetaminophen) 1 Each Tablet 1 Tab PO PRN Q4HRS PRN 7 Days Novolog Flexpen (Insulin Aspart) 100 Unit/1 Ml Insuln.pen 0 Units SQ TIDWMEALS 30 Days Reported Gabapentin (Gabapentin) 300 Mg Capsule 300 Mg PO BID Gabapentin (Gabapentin) 300 Mg Capsule 300 Mg PO BID Metoprolol Succinate ( Xl ) (Metoprolol Succinate) 25 Mg Tab.er.24h 3 Tab PO DAILY Lasix (Furosemide) 40 Mg Tablet 1 Tab PO PRN DAILY PRN Give 40 mg PO Lasix PRN if pt gains 2 lbs in 1 day or 5 lbs in 1 week; if pt also shows signs of CHF exacerbation Furosemide 40 Mg Tablet 1 Tab PO BID 2 Days Losartan Potassium 50 Mg Tablet 50 Mg PO DAILY Metolazone 2.5 Mg Tablet 2.5 Mg PO DAILY Oxybutynin Chloride 5 Mg Tablet 10 Mg PO HS Levemir Flextouch (Insulin Detemir) 100 Unit/1 Ml Insuln.pen 40 Unit SQ HS Pioglitazone Hcl 30 Mg Tablet 30 Mg PO DAILY Zoloft (Sertraline Hcl) 50 Mg Tablet 1 Tab PO DAILY Atorvastatin Calcium 40 Mg Tablet 40 Mg PO HS Aspirin Ec (Aspirin) 81 Mg Tablet.dr 81 Mg PO Amlodipine Besylate 10 Mg Tablet 10 Mg PO DAILY Donepezil Hcl 10 Mg Tablet 10 Mg PO HS Vitals/I & O Vital Sign - Last 24 Hours 09/06/18 09/06/18 09/06/18 09/06/18 16:14 16:37 17:37 18:31 Temp 97.7 97.7 Pulse 58 Resp 20 17 18 B/P (MAP) 189/80 (116) Pulse Ox 97 96 95 94 O2 Delivery Room Air Room Air Room Air Room Air 09/06/18 09/06/18 09/06/18 09/06/18 18:31 18:57 18:59 19:01 Pulse 58 58 Resp 16 Pulse Ox 87 91 94 O2 Delivery Nasal Cannula O2 Flow Rate 3.0 09/06/18 09/06/18 09/06/18 09/06/18 19:22 19:29 20:00 20:27 Pulse 60 60 64 Resp 17 Pulse Ox 99 99 97 O2 Delivery Nasal Cannula O2 Flow Rate 2.0 09/06/18 09/06/18 09/06/18 09/07/18 20:46 23:00 23:48 00:18 Temp 97.6 97.7 97.6 97.7 Pulse 66 68 Resp 18 18 18 16 B/P (MAP) 187/67 (107) 151/76 (101) Pulse Ox 92 96 O2 Delivery Nasal Cannula Nasal Cannula Room Air Room Air O2 Flow Rate 2.0 2.0 09/07/18 09/07/18 09/07/18 09/07/18 03:00 07:00 08:33 09:39 Temp 97.7 98.1 97.7 98.1 Pulse 68 65 65 Resp 18 16 B/P (MAP) 149/95 (113) 133/54 (80) 133/54 Pulse Ox 97 98 99 O2 Delivery Nasal Cannula Room Air Nasal Cannula O2 Flow Rate 2.0 2.0 09/07/18 09:39 Pulse 65 B/P (MAP) 133/54 Intake and Output 09/06/18 09/06/18 09/07/18 14:59 22:59 06:59 Intake Total 300 ml Balance 300 ml MARIFER BOLAÑOS III DO Sep 07, 2018 11:50
[2018-09-07] MEDS: DICLOFENAC SODIUM 1% TOPICAL GEL 100GM TUBE. TP SCH ×2 (13:04→20:40)
[2018-09-07] MEDS: HYDROcodone/APAP 5/325MG 1 TAB TABLET PO PRN ×2 (13:09→22:52)
--- NOTE | 2018-09-07 13:14 | PDOC2 ---
CONSULT Date of Consult Date of Consult DATE: 09/07/18 TIME: 13:07 Reason for Consult Reason for Consult: Acute on chronic renal insufficiency Referring Physician Referring Physician: Dr. Leos Identification/Chief Complaint Chief Complaint Fell off a barstool at [facility], pain Source Source: Chart review, Patient History of Present Illness Reason for Visit: Patient is a pleasant 73-year-old Afro-[place] female who is known to have chronic kidney disease and is followed by Dr. Brock in our practice. She seems to run a creatinine of 1.4 at baseline until earlier this year where she's been running approximately 1.8-1.9 Per our records. Outpatient labs are not accessible at this time. He was at [facility] waiting for food and I to sit up on a barstool. She claims she does not know what happened she and the barstool both fell and she hit her head. She was brought to the ER by EMS because she was found down when they arrived. She is reportedly conscious. She denies orthostasis like symptoms. She denies ongoing vision problems at this time. We are asked to see her since her creatinine was 1.8 from what appears to be a baseline of 1.2-1.4 earlier this year. She denies fevers chills nausea vomiting diarrhea dysuria urgency frequency of this time. Past Medical History Cardiovascular: HTN, Hyperlipidemia, Other Pulmonary: Other CENTRAL NERVOUS SYSTEM: Periperal neuropathy, TIA GI: No pertinent hx Heme/Onc: No pertinent hx Hepatobiliary: No pertinent hx Psych: Anxiety, Depression Musculoskeletal: Osteoarthritis Rheumatologic: No pertinent hx Infectious disease: No pertinent hx Renal/: Chronic renal insuff, UTI, Other Endocrine: Diabetes Past Surgical History Past Surgical History: Tonsillectomy, Hysterectomy, Other Family History Family History: Hypertension Social History No ALCOHOL: none Drugs: None Lives: with Family Current Problem List Problem List Problems Medical Problems: (1) Coccyx pain Status: Acute (2) Hematoma of scalp Status: Acute (3) Hyperglycemia Status: Acute Current Medications Current Medications Current Medications Ondansetron HCl (Zofran Odt) 4 mg 1X ONCE PO Last administered on 09/06/18at 16:37; Start 09/06/18 at 16:30; Stop 09/06/18 at 16:31; Status DC Acetaminophen/ Hydrocodone Bitart (Lortab 7.5/325) 1 tab 1X ONCE PO Last administered on 09/06/18at 16:37; Start 09/06/18 at 16:30; Stop 09/06/18 at 16:31; Status DC Insulin Human Lispro (HumaLOG VIAL) 5 unit 1X ONCE SQ ; Start 09/06/18 at 16:45; Stop 09/06/18 at 16:46; Status UNV Insulin Human Regular (HumuLIN R VIAL) 5 unit 1X ONCE IV ; Start 09/06/18 at 16:45; Stop 09/06/18 at 16:46; Status DC Insulin Human Regular (HumuLIN R VIAL) 5 unit 1X ONCE SQ Last administered on 09/06/18at 17:17; Start 09/06/18 at 16:45; Stop 09/06/18 at 16:48; Status DC Fentanyl Citrate (Fentanyl 2ml Vial) 25 mcg 1X ONCE IM Last administered on 09/06/18at 18:31; Start 09/06/18 at 18:15; Stop 09/06/18 at 18:16; Status DC Sodium Chloride 1,000 ml @ 1,000 mls/hr 1X ONCE IV Last administered on 09/06/18at 19:29; Start 09/06/18 at 19:00; Stop 09/06/18 at 19:59; Status DC Ondansetron HCl (Zofran) 4 mg PRN Q8HRS PRN IV NAUSEA/VOMITING; Start 09/06/18 at 20:00; Stop 09/07/18 at 19:59 Morphine Sulfate (Morphine Sulfate) 2 mg PRN Q2HR PRN IV PAIN Last administered on 09/06/18at 23:48; Start 09/06/18 at 20:00; Stop 09/07/18 at 19:59 Potassium Chloride (Klor-Con) 20 meq 1X ONCE PO Last administered on 09/06/18at 20:42; Start 09/06/18 at 20:45; Stop 09/06/18 at 20:46; Status DC Insulin Human Lispro (HumaLOG) 0-5 UNITS TIDWMEALS SQ ; Start 09/07/18 at 08:00; Stop 09/07/18 at 08:00; Status DC Dextrose (Dextrose 50%-Water Syringe) 12.5 gm PRN Q15MIN PRN IV SEE COMMENTS; Start 09/06/18 at 20:45; Status Cancel Acetaminophen/ Hydrocodone Bitart (Lortab 5/325) 1 tab PRN Q4HRS PRN PO MODERATE PAIN; Start 09/06/18 at 21:45 Potassium Chloride (Klor-Con) 40 meq 1X ONCE PO Last administered on 09/06/18at 22:40; Start 09/06/18 at 22:00; Stop 09/06/18 at 22:01; Status DC Potassium Chloride (Klor-Con) 20 meq DAILYWBKFT PO Last administered on 09/07/18at 09:40; Start 09/07/18 at 08:00 Amlodipine Besylate (Norvasc) 10 mg DAILY PO Last administered on 09/07/18 09:39; Start 09/07/18 at 09:00 Aspirin (Ecotrin) 81 mg DAILY PO Last administered on 09/07/18 09:41; Start 09/07/18 at 09:00 Atorvastatin Calcium (Lipitor) 40 mg HS PO ; Start 09/07/18 at 21:00 Gabapentin (Neurontin) 100 mg BID PO ; Start 09/06/18 at 22:00; Status Cancel Metoprolol Succinate (Toprol Xl) 1,875 mg DAILY PO ; Start 09/07/18 at 09:00; Status UNV Oxybutynin Chloride (Ditropan) 10 mg HS PO Last administered on 09/06/18 22:39; Start 09/06/18 at 22:00 Sertraline HCl (Zoloft) 50 mg DAILY PO Last administered on 09/07/18 09:40; Start 09/07/18 at 09:00 Donepezil HCl (Aricept) 10 mg QHS PO Last administered on 09/06/18at 22:39; Start 09/06/18 at 22:00 Non-Formulary Medication (Insulin Aspart (Novolog Flexpen)) TIDWMEALS SQ ; Start 09/07/18 at 08:00; Status UNV Insulin Glargine (Lantus) 40 units QHS SQ Last administered on 09/06/18at 22:51; Start 09/06/18 at 22:00 Metolazone (Zaroxolyn) 2.5 mg DAILY PO Last administered on 09/07/18at 09:40; Start 09/07/18 at 09:00 Pioglitazone HCl (Actos) 30 mg DAILY PO Last administered on 09/07/18at 09:38; Start 09/07/18 at 09:00 Insulin Human Lispro (HumaLOG) 0-9 UNITS TIDWMEALS SQ Last administered on 09/07/18at 09:52; Start 09/07/18 at 08:00 Dextrose (Dextrose 50%-Water Syringe) 12.5 gm PRN Q15MIN PRN IV SEE COMMENTS; Start 09/06/18 at 21:45 Albuterol/ Ipratropium (Duoneb) 3 ml RTQID NEB Last administered on 09/07/18at 12:45; Start 09/07/18 at 08:00 Enoxaparin Sodium (Lovenox Per Pharmacy Prophylaxis Dosing) 1 each PRN DAILY PRN MC SEE COMMENTS; Start 09/06/18 at 21:45 Magnesium Sulfate 50 ml @ 25 mls/hr 1X ONCE IV Last administered on 09/06/18at 22:51; Start 09/06/18 at 23:00; Stop 09/07/18 at 00:59; Status DC Enoxaparin Sodium (Lovenox 40mg Syringe) 40 mg Q24H SQ Last administered on 09/06/18at 22:41; Start 09/06/18 at 22:00 Metoprolol Succinate (Toprol Xl) 75 mg DAILY PO Last administered on 09/07/18at 09:39; Start 09/07/18 at 09:00 Gabapentin (Neurontin) 300 mg BID PO Last administered on 09/07/18at 09:40; Start 09/06/18 at 23:00 Diclofenac Sodium (Voltaren) 1 yudy BID TP ; Start 09/07/18 at 10:00 Active Scripts Active Lasix (Furosemide) 40 Mg Tablet 1 Tab PO BID Hydrocodone-Apap 5-325 (Hydrocodone Bit/Acetaminophen) 1 Each Tablet 1 Tab PO PRN Q4HRS PRN 7 Days Novolog Flexpen (Insulin Aspart) 100 Unit/1 Ml Insuln.pen 0 Units SQ TIDWMEALS 30 Days Reported Gabapentin (Gabapentin) 300 Mg Capsule 300 Mg PO BID Gabapentin (Gabapentin) 300 Mg Capsule 300 Mg PO BID Metoprolol Succinate ( Xl ) (Metoprolol Succinate) 25 Mg Tab.er.24h 3 Tab PO DAILY Lasix (Furosemide) 40 Mg Tablet 1 Tab PO PRN DAILY PRN Give 40 mg PO Lasix PRN if pt gains 2 lbs in 1 day or 5 lbs in 1 week; if pt also shows signs of CHF exacerbation Furosemide 40 Mg Tablet 1 Tab PO BID 2 Days Losartan Potassium 50 Mg Tablet 50 Mg PO DAILY Metolazone 2.5 Mg Tablet 2.5 Mg PO DAILY Oxybutynin Chloride 5 Mg Tablet 10 Mg PO HS Levemir Flextouch (Insulin Detemir) 100 Unit/1 Ml Insuln.pen 40 Unit SQ HS Pioglitazone Hcl 30 Mg Tablet 30 Mg PO DAILY Zoloft (Sertraline Hcl) 50 Mg Tablet 1 Tab PO DAILY Atorvastatin Calcium 40 Mg Tablet 40 Mg PO HS Aspirin Ec (Aspirin) 81 Mg Tablet.dr 81 Mg PO Amlodipine Besylate 10 Mg Tablet 10 Mg PO DAILY Donepezil Hcl 10 Mg Tablet 10 Mg PO HS Allergies Allergies: Coded Allergies: No Known Drug Allergies (Unverified , 08/04/16) ROS Review of System Negative other than as reviewed in history of present illness Physical Exam Physical Exam General Appearance: Awake Alert Oriented x 3 In no visible Distress Eyes: VIsion Unchanged Conjunctiva Normal, somewhat exopthalmos cannot be ruled out EN: No EN Drainage Mucous Memb. moist Neck: no JVD min JVP Supple no Thyromegaly CVS: S1 S2 soft Murmur No Gallop No Rub none Edema Resp: no Rales no Rhonchi no Acc. Muscle use GI: BAS +ve NO Bruit Non Tender Non Distended : no CVA tenderness; no Suprapubic Tenderness SKIN: no Rashes Breast Exam deferred Mu.Sk: Adequate ROM no Muscle Atrophy Heme: Unable to palpate Obvious LAD no Splenomegaly NEURO: Good Strength and Tone Cranial Nerves II - XII grossly intact Psych: not Depressed no Active hallucination Vital Signs Vital Signs Date Time Temp Pulse Resp B/P (MAP) Pulse Ox O2 Delivery O2 Flow Rate FiO2 09/07/18 12:48 98 Nasal Cannula 2.0 09/07/18 11:00 97.9 59 16 111/50 (70) 97.9 Assessment & Plan ? ARF: Cannot rule out an element of volume depletion. In point it may be her new baseline. Current FLuid and E-lyte status does not necessitate emergent need for Dialysis. Chronic kidney disease stage III: Presumably diabetic hypertensive nephroscle rosis with other foci of atherosclerotic vascular disease. At current levels. This may be her new baseline in a fluid optimized state. She will need follow-up with Dr. Brock as an outpatient. hypomagnesemia: When necessary magnesium as ordered Hypokalemia as above: Replace as needed Possible intravascular volume depletion associated with diuretic use cannot be ruled out. Gentle IV fluids as ordered Discussed Plan of Care and prognosis etc. at length with family. Labs Labs Laboratory Tests Test 09/06/18 16:24 09/06/18 18:44 09/06/18 19:40 09/06/18 20:57 Glucose (Fingerstick) 374 mg/dL (70-99) 305 mg/dL (70-99) 228 mg/dL (70-99) White Blood Count 11.6 x10^3/uL (4.0-11.0) Red Blood Count 4.20 x10^6/uL (3.50-5.40) Hemoglobin 12.3 g/dL (12.0-15.5) Hematocrit 37.7 % (36.0-47.0) Mean Corpuscular Volume 90 fL (79-100) Mean Corpuscular Hemoglobin 29 pg (25-35) Mean Corpuscular Hemoglobin Concent 33 g/dL (31-37) Red Cell Distribution Width 13.8 % (11.5-14.5) Platelet Count 226 x10^3/uL (140-400) Neutrophils (%) (Auto) 78 % (31-73) Lymphocytes (%) (Auto) 16 % (24-48) Monocytes (%) (Auto) 6 % (0-9) Eosinophils (%) (Auto) 1 % (0-3) Basophils (%) (Auto) 1 % (0-3) Neutrophils # (Auto) 9.0 x10^3uL (1.8-7.7) Lymphocytes # (Auto) 1.8 x10^3/uL (1.0-4.8) Monocytes # (Auto) 0.7 x10^3/uL (0.0-1.1) Eosinophils # (Auto) 0.1 x10^3/uL (0.0-0.7) Basophils # (Auto) 0.1 x10^3/uL (0.0-0.2) Prothrombin Time 14.2 SEC (11.7-14.0) Prothromb Time International Ratio 1.1 (0.8-1.1) Activated Partial Thromboplast Time 26 SEC (24-38) Sodium Level 141 mmol/L (136-145) Potassium Level 2.8 mmol/L (3.5-5.1) Chloride Level 99 mmol/L (98-107) Carbon Dioxide Level 35 mmol/L (21-32) Anion Gap 7 (6-14) Blood Urea Nitrogen 39 mg/dL (7-20) Creatinine 1.9 mg/dL (0.6-1.0) Estimated GFR (Cockcroft-Gault) 31.3 BUN/Creatinine Ratio 21 (6-20) Glucose Level 283 mg/dL (70-99) Calcium Level 9.8 mg/dL (8.5-10.1) Total Bilirubin 0.3 mg/dL (0.2-1.0) Aspartate Amino Transf (AST/SGOT) 14 U/L (15-37) Alanine Aminotransferase (ALT/SGPT) 13 U/L (14-59) Alkaline Phosphatase 121 U/L (46-116) Total Protein 7.4 g/dL (6.4-8.2) Albumin 3.3 g/dL (3.4-5.0) Albumin/Globulin Ratio 0.8 (1.0-1.7) Test 09/07/18 00:01 09/07/18 04:30 09/07/18 07:40 09/07/18 11:36 Magnesium Level 1.3 mg/dL (1.8-2.4) White Blood Count 10.3 x10^3/uL (4.0-11.0) Red Blood Count 4.03 x10^6/uL (3.50-5.40) Hemoglobin 11.9 g/dL (12.0-15.5) Hematocrit 36.4 % (36.0-47.0) Mean Corpuscular Volume 90 fL (79-100) Mean Corpuscular Hemoglobin 30 pg (25-35) Mean Corpuscular Hemoglobin Concent 33 g/dL (31-37) Red Cell Distribution Width 13.8 % (11.5-14.5) Platelet Count 218 x10^3/uL (140-400) Neutrophils (%) (Auto) 69 % (31-73) Lymphocytes (%) (Auto) 21 % (24-48) Monocytes (%) (Auto) 8 % (0-9) Eosinophils (%) (Auto) 1 % (0-3) Basophils (%) (Auto) 1 % (0-3) Neutrophils # (Auto) 7.1 x10^3uL (1.8-7.7) Lymphocytes # (Auto) 2.2 x10^3/uL (1.0-4.8) Monocytes # (Auto) 0.8 x10^3/uL (0.0-1.1) Eosinophils # (Auto) 0.1 x10^3/uL (0.0-0.7) Basophils # (Auto) 0.1 x10^3/uL (0.0-0.2) Sodium Level 142 mmol/L (136-145) Potassium Level 3.4 mmol/L (3.5-5.1) Chloride Level 101 mmol/L (98-107) Carbon Dioxide Level 34 mmol/L (21-32) Anion Gap 7 (6-14) Blood Urea Nitrogen 34 mg/dL (7-20) Creatinine 1.8 mg/dL (0.6-1.0) Estimated GFR (Cockcroft-Gault) 33.3 BUN/Creatinine Ratio 19 (6-20) Glucose Level 207 mg/dL (70-99) Calcium Level 9.5 mg/dL (8.5-10.1) Total Bilirubin 0.3 mg/dL (0.2-1.0) Aspartate Amino Transf (AST/SGOT) 14 U/L (15-37) Alanine Aminotransferase (ALT/SGPT) 10 U/L (14-59) Alkaline Phosphatase 104 U/L (46-116) Total Protein 6.9 g/dL (6.4-8.2) Albumin 3.0 g/dL (3.4-5.0) Albumin/Globulin Ratio 0.8 (1.0-1.7) Glucose (Fingerstick) 187 mg/dL (70-99) 274 mg/dL (70-99) Laboratory Tests Test 09/06/18 16:24 09/06/18 18:44 09/06/18 19:40 09/06/18 20:57 Glucose (Fingerstick) 374 mg/dL (70-99) 305 mg/dL (70-99) 228 mg/dL (70-99) White Blood Count 11.6 x10^3/uL (4.0-11.0) Red Blood Count 4.20 x10^6/uL (3.50-5.40) Hemoglobin 12.3 g/dL (12.0-15.5) Hematocrit 37.7 % (36.0-47.0) Mean Corpuscular Volume 90 fL (79-100) Mean Corpuscular Hemoglobin 29 pg (25-35) Mean Corpuscular Hemoglobin Concent 33 g/dL (31-37) Red Cell Distribution Width 13.8 % (11.5-14.5) Platelet Count 226 x10^3/uL (140-400) Neutrophils (%) (Auto) 78 % (31-73) Lymphocytes (%) (Auto) 16 % (24-48) Monocytes (%) (Auto) 6 % (0-9) Eosinophils (%) (Auto) 1 % (0-3) Basophils (%) (Auto) 1 % (0-3) Neutrophils # (Auto) 9.0 x10^3uL (1.8-7.7) Lymphocytes # (Auto) 1.8 x10^3/uL (1.0-4.8) Monocytes # (Auto) 0.7 x10^3/uL (0.0-1.1) Eosinophils # (Auto) 0.1 x10^3/uL (0.0-0.7) Basophils # (Auto) 0.1 x10^3/uL (0.0-0.2) Prothrombin Time 14.2 SEC (11.7-14.0) Prothromb Time International Ratio 1.1 (0.8-1.1) Activated Partial Thromboplast Time 26 SEC (24-38) Sodium Level 141 mmol/L (136-145) Potassium Level 2.8 mmol/L (3.5-5.1) Chloride Level 99 mmol/L (98-107) Carbon Dioxide Level 35 mmol/L (21-32) Anion Gap 7 (6-14) Blood Urea Nitrogen 39 mg/dL (7-20) Creatinine 1.9 mg/dL (0.6-1.0) Estimated GFR (Cockcroft-Gault) 31.3 BUN/Creatinine Ratio 21 (6-20) Glucose Level 283 mg/dL (70-99) Calcium Level 9.8 mg/dL (8.5-10.1) Total Bilirubin 0.3 mg/dL (0.2-1.0) Aspartate Amino Transf (AST/SGOT) 14 U/L (15-37) Alanine Aminotransferase (ALT/SGPT) 13 U/L (14-59) Alkaline Phosphatase 121 U/L (46-116) Total Protein 7.4 g/dL (6.4-8.2) Albumin 3.3 g/dL (3.4-5.0) Albumin/Globulin Ratio 0.8 (1.0-1.7) Test 09/07/18 00:01 09/07/18 04:30 09/07/18 07:40 09/07/18 11:36 Magnesium Level 1.3 mg/dL (1.8-2.4) White Blood Count 10.3 x10^3/uL (4.0-11.0) Red Blood Count 4.03 x10^6/uL (3.50-5.40) Hemoglobin 11.9 g/dL (12.0-15.5) Hematocrit 36.4 % (36.0-47.0) Mean Corpuscular Volume 90 fL (79-100) Mean Corpuscular Hemoglobin 30 pg (25-35) Mean Corpuscular Hemoglobin Concent 33 g/dL (31-37) Red Cell Distribution Width 13.8 % (11.5-14.5) Platelet Count 218 x10^3/uL (140-400) Neutrophils (%) (Auto) 69 % (31-73) Lymphocytes (%) (Auto) 21 % (24-48) Monocytes (%) (Auto) 8 % (0-9) Eosinophils (%) (Auto) 1 % (0-3) Basophils (%) (Auto) 1 % (0-3) Neutrophils # (Auto) 7.1 x10^3uL (1.8-7.7) Lymphocytes # (Auto) 2.2 x10^3/uL (1.0-4.8) Monocytes # (Auto) 0.8 x10^3/uL (0.0-1.1) Eosinophils # (Auto) 0.1 x10^3/uL (0.0-0.7) Basophils # (Auto) 0.1 x10^3/uL (0.0-0.2) Sodium Level 142 mmol/L (136-145) Potassium Level 3.4 mmol/L (3.5-5.1) Chloride Level 101 mmol/L (98-107) Carbon Dioxide Level 34 mmol/L (21-32) Anion Gap 7 (6-14) Blood Urea Nitrogen 34 mg/dL (7-20) Creatinine 1.8 mg/dL (0.6-1.0) Estimated GFR (Cockcroft-Gault) 33.3 BUN/Creatinine Ratio 19 (6-20) Glucose Level 207 mg/dL (70-99) Calcium Level 9.5 mg/dL (8.5-10.1) Total Bilirubin 0.3 mg/dL (0.2-1.0) Aspartate Amino Transf (AST/SGOT) 14 U/L (15-37) Alanine Aminotransferase (ALT/SGPT) 10 U/L (14-59) Alkaline Phosphatase 104 U/L (46-116) Total Protein 6.9 g/dL (6.4-8.2) Albumin 3.0 g/dL (3.4-5.0) Albumin/Globulin Ratio 0.8 (1.0-1.7) Glucose (Fingerstick) 187 mg/dL (70-99) 274 mg/dL (70-99) Review All relevant outside records, renal labs, imaging studies, telemetry/EKG's were reviewed. GIOVANA GRAHAM MD Sep 07, 2018 13:14
[2018-09-07] MEDS ORDERED: MAGNESIUM SULFATE 2GM 50 ML IV PRN (13:15)
[2018-09-07 15:00] VITALS: BP 141/60
[2018-09-07 19:00] VITALS: BP 121/64
[2018-09-07] MEDS: DONEPEZIL HCL 10 MG TABLET. PO SCH (20:35)
[2018-09-07] MEDS: OXYBUTYNIN CHLORIDE 5 MG TABLET PO SCH (20:35)
[2018-09-07] MEDS: ATORVASTATIN CALCIUM 40 MG TABLET. PO SCH (20:35)
[2018-09-07] MEDS ORDERED: INSULIN LISPRO 300 UNITS/3 ML INSULN.PEN. SQ ONE (22:30)
[2018-09-07] MEDS: ENOXAPARIN 40 MG/0.4 ML SYRINGE. SQ SCH (22:52)
[2018-09-07] MEDS: INSULIN GLARGINE 300 UNITS/3 ML INSULN.PEN. SQ SCH (22:58)
[2018-09-07 23:00] VITALS: BP 146/58
[2018-09-07 23:06] LABS: HEMOGLOBIN A1C 7.7 % (4.8-5.6)
--- NOTE | 2018-09-08 02:25 | CONS ---
DATE OF CONSULTATION: 09/07/2018 LOCATION: Room 412. I saw her at the request of Dr. Richard for rehab evaluation. 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 The patient with known hypertension, hyperlipidemia, diabetes mellitus, peripheral neuropathy, previous transient ischemic episode, anxiety, depression, osteoarthritis, chronic renal insufficiency, frequent urinary tract infections, status post tonsillectomy, hysterectomy, cervical spine surgery. Family history of hypertension. She is not known allergic to any medication. The patient lives with her sister, had stairs with railing in place. She usually walks using a cane. She is having some difficulty with stiffness and difficulty to get up early in the morning for a while. The patient was in the hospital recently with congestive heart failure, was discharged to [facility] from which she was discharged to home this week and she apparently had a fall after trying to sit at [employer] on the day of admission, that is on 09/06/2018 and she fell backwards and bumped her head and back. She complains of pain. She had radiological studies including CT scan of the brain, cervical and thoracic spine and pelvis, which failed to reveal any acute abnormality except hematoma on the back of her skull and also degenerative changes in cervical and thoracic vertebrae and old healed fracture of the pubic rami. The patient denies any trouble with her bowel or bladder control or swallowing or speech or memory. PHYSICAL EXAMINATION: Today revealed an elderly female. She is alert, oriented to place and person, follows commands appropriately, moves all 4 extremities voluntarily where she had 4/5 to 4+/5 grade muscle strength with relatively increased weakness in hand intrinsic muscles. Deep tendon reflexes are decreased to absent overall. She had decreased touch and pinprick sensation over a sock and glove distribution. She had tenderness to palpation over right upper trapezius muscle and over left lumbar paraspinal muscles. Straight leg raising test is negative bilaterally. She had crepitus on range of motion on both knee joints with mild knee joint effusion. She also had some stiffness of her ankles. The patient had no obvious visual field cut or facial asymmetry or communication problems. She required supervision with bed mobility and transfers. Once up, she can walk using a roller walker. Her oxygen saturation dropped to 72% when she is walking without oxygen. She did not use oxygen in the past. ASSESSMENT: An elderly female with recent fall and sprain of her neck and back and also hematoma scars. The patient with diabetes mellitus with peripheral neuropathy, chronic renal insufficiency, hypertension, hyperlipidemia, degenerative joints of both knees, anxiety, depression and recent hospitalization for congestive heart failure, treated. She presents with oxygen decompensation while she is walking without oxygen. RECOMMENDATION: To ask Physical Therapy and Occupational Therapy to see her, to work on her safety with mobility and self-care skills, hopefully to [facility] care unit or home with home health followup when she is medically stable, especially from oxygen desaturation point. She may need home oxygen. To consider injecting painful knee joints when her blood sugar is under better control. Dr. Richard, I appreciate asking me to participate in the care of this interesting patient. I will be glad to follow her with you as needed for her rehabilitation. REBA ABEL MD DR: MARK/shane JOB#: [id number] / [id number] JERRY Fried
[2018-09-08 03:00] VITALS: BP 135/64
[2018-09-08] MEDS: IPRATRPIUM/ALBUTEROL 0.5/2.5MG 3 ML NEBU. NEB SCH ×4 (06:16→20:32)
[2018-09-08] MEDS: HYDROcodone/APAP 5/325MG 1 TAB TABLET PO PRN ×3 (06:16→22:37)
[2018-09-08 07:00] VITALS: BP 141/78
[2018-09-08] MEDS: INSULIN LISPRO 300 UNITS/3 ML INSULN.PEN. SQ SCH ×3 (08:00→17:20)
[2018-09-08 08:19] LABS: BASO % 0 % (0-3); EOS # 0.2 x10^3/uL (0.0-0.7); EOS % 2 % (0-3); HEMATOCRIT 36.4 % (36.0-47.0); HEMOGLOBIN 11.7 g/dL (12.0-15.5); LYMPH % 23 % (24-48); MEAN CORPUSCULAR HEMOGLOBIN 29 pg (25-35); MEAN CORPUSCULAR HGB CONC 32 g/dL (31-37); MEAN CORPUSCULAR VOLUME 91 fL (79-100); MONO # 0.6 x10^3/uL (0.0-1.1); MONO % 7 % (0-9); NEUT # 5.8 x10^3uL (1.8-7.7); NEUT % 67 % (31-73); PLATELET COUNT 230 x10^3/uL (140-400); RED CELL DISTRIBUTION WIDTH 14.1 % (11.5-14.5); WHITE BLOOD COUNT 8.6 x10^3/uL (4.0-11.0)
[2018-09-08 08:24] LABS: CALCIUM 9.6 mg/dL (8.5-10.1); CREATININE 1.7 mg/dL (0.6-1.0); GFR 35.5; POTASSIUM 3.4 mmol/L (3.5-5.1)
[2018-09-08] MEDS: PIOGLITAZONE 15 MG TABLET. PO SCH (10:41)
[2018-09-08] MEDS: GABAPENTIN 300 MG CAPSULE. PO SCH ×2 (10:41→22:37)
[2018-09-08] MEDS: METOPROLOL SUCC 24HR ER 25 MG TAB.ER.24H. PO SCH (10:42)
[2018-09-08] MEDS: ASPIRIN ENTERIC COATED 81 MG TABLET.DR. PO SCH (10:42)
[2018-09-08] MEDS: metOLazone 2.5 MG TABLET PO SCH (10:42)
[2018-09-08] MEDS: POTASSIUM CHLORIDE 20 MEQ TABLET.ER. PO SCH (10:42)
[2018-09-08] MEDS: SERTRALINE 50 MG TABLET. PO SCH (10:43)
[2018-09-08] MEDS: amLODIPine BESYLATE 10 MG TABLET PO SCH (10:43)
[2018-09-08] MEDS: DICLOFENAC SODIUM 1% TOPICAL GEL 100GM TUBE. TP SCH ×2 (10:50→22:38)
[2018-09-08 11:00] VITALS: BP 139/64
--- NOTE | 2018-09-08 12:34 | PDOC ---
PROGRESS NOTES Chief Complaint Chief Complaint Head trauma, subgaleal hematoma History of Present Illness History of Present Illness Patient was seen and examined Patient was sitting up in a chair today. She states she still has some minor head tenderness. Vitals Vitals Vital Signs Date Time Temp Pulse Resp B/P (MAP) Pulse Ox O2 Delivery O2 Flow Rate FiO2 09/08/18 11:37 Nasal Cannula 2.0 09/08/18 10:43 66 141/78 09/08/18 07:16 20 09/08/18 07:00 97.7 93 97.7 Physical Exam General: No acute distress Heart: Regular rate Lungs: Clear (No wheezes, rales, or rhonchi) Abdomen: Soft Extremities: No edema Skin: No rashes, No breakdown, No significant lesion Labs LABS Laboratory Tests Test 09/07/18 17:02 09/07/18 20:49 09/08/18 07:00 09/08/18 07:44 Glucose (Fingerstick) 337 mg/dL (70-99) 307 mg/dL (70-99) 120 mg/dL (70-99) White Blood Count 8.6 x10^3/uL (4.0-11.0) Red Blood Count 4.00 x10^6/uL (3.50-5.40) Hemoglobin 11.7 g/dL (12.0-15.5) Hematocrit 36.4 % (36.0-47.0) Mean Corpuscular Volume 91 fL (79-100) Mean Corpuscular Hemoglobin 29 pg (25-35) Mean Corpuscular Hemoglobin Concent 32 g/dL (31-37) Red Cell Distribution Width 14.1 % (11.5-14.5) Platelet Count 230 x10^3/uL (140-400) Neutrophils (%) (Auto) 67 % (31-73) Lymphocytes (%) (Auto) 23 % (24-48) Monocytes (%) (Auto) 7 % (0-9) Eosinophils (%) (Auto) 2 % (0-3) Basophils (%) (Auto) 0 % (0-3) Neutrophils # (Auto) 5.8 x10^3uL (1.8-7.7) Lymphocytes # (Auto) 2.0 x10^3/uL (1.0-4.8) Monocytes # (Auto) 0.6 x10^3/uL (0.0-1.1) Eosinophils # (Auto) 0.2 x10^3/uL (0.0-0.7) Basophils # (Auto) 0.0 x10^3/uL (0.0-0.2) Sodium Level 142 mmol/L (136-145) Potassium Level 3.4 mmol/L (3.5-5.1) Chloride Level 99 mmol/L (98-107) Carbon Dioxide Level 35 mmol/L (21-32) Anion Gap 8 (6-14) Blood Urea Nitrogen 37 mg/dL (7-20) Creatinine 1.7 mg/dL (0.6-1.0) Estimated GFR (Cockcroft-Gault) 35.5 Glucose Level 114 mg/dL (70-99) Calcium Level 9.6 mg/dL (8.5-10.1) Magnesium Level 2.4 mg/dL (1.8-2.4) Test 09/08/18 12:11 Glucose (Fingerstick) 218 mg/dL (70-99) Review of Systems Review of Systems Complains of pain and weakness Assessment and Plan Assessmemt and Plan Problems Medical Problems: (1) Coccyx pain Status: Acute (2) Hematoma of scalp Status: Acute (3) Hyperglycemia Status: Acute Assessment: Head trauma, no LOC Subgaleal hematoma Recent hospitalization for heart failure and then went to group home briefly did not do well at home ( fell after 2 days) Hypokalemia- 3.4 HTN HLD CHF Chronic renal failure- Cr 1.8 DM Peripheral neuropathy TIA Anxiety and depression OA Plan: Head CT 09/06- large subgaleal hematoma at vertex 20 mg KCL Po Q day Monitor K level On nasal canula Cardiology consult Nephrology consult Pain management PT/OT F/u labs Home meds DVt prophylaxis SNU russ Comment Review of Relevant I have reviewed the following items joel (where applicable) has been applied. Labs Laboratory Tests Test 09/06/18 16:24 09/06/18 18:44 09/06/18 19:40 09/06/18 20:57 Glucose (Fingerstick) 374 mg/dL (70-99) 305 mg/dL (70-99) 228 mg/dL (70-99) White Blood Count 11.6 x10^3/uL (4.0-11.0) Red Blood Count 4.20 x10^6/uL (3.50-5.40) Hemoglobin 12.3 g/dL (12.0-15.5) Hematocrit 37.7 % (36.0-47.0) Mean Corpuscular Volume 90 fL (79-100) Mean Corpuscular Hemoglobin 29 pg (25-35) Mean Corpuscular Hemoglobin Concent 33 g/dL (31-37) Red Cell Distribution Width 13.8 % (11.5-14.5) Platelet Count 226 x10^3/uL (140-400) Neutrophils (%) (Auto) 78 % (31-73) Lymphocytes (%) (Auto) 16 % (24-48) Monocytes (%) (Auto) 6 % (0-9) Eosinophils (%) (Auto) 1 % (0-3) Basophils (%) (Auto) 1 % (0-3) Neutrophils # (Auto) 9.0 x10^3uL (1.8-7.7) Lymphocytes # (Auto) 1.8 x10^3/uL (1.0-4.8) Monocytes # (Auto) 0.7 x10^3/uL (0.0-1.1) Eosinophils # (Auto) 0.1 x10^3/uL (0.0-0.7) Basophils # (Auto) 0.1 x10^3/uL (0.0-0.2) Prothrombin Time 14.2 SEC (11.7-14.0) Prothromb Time International Ratio 1.1 (0.8-1.1) Activated Partial Thromboplast Time 26 SEC (24-38) Sodium Level 141 mmol/L (136-145) Potassium Level 2.8 mmol/L (3.5-5.1) Chloride Level 99 mmol/L (98-107) Carbon Dioxide Level 35 mmol/L (21-32) Anion Gap 7 (6-14) Blood Urea Nitrogen 39 mg/dL (7-20) Creatinine 1.9 mg/dL (0.6-1.0) Estimated GFR (Cockcroft-Gault) 31.3 BUN/Creatinine Ratio 21 (6-20) Glucose Level 283 mg/dL (70-99) Calcium Level 9.8 mg/dL (8.5-10.1) Total Bilirubin 0.3 mg/dL (0.2-1.0) Aspartate Amino Transf (AST/SGOT) 14 U/L (15-37) Alanine Aminotransferase (ALT/SGPT) 13 U/L (14-59) Alkaline Phosphatase 121 U/L (46-116) Total Protein 7.4 g/dL (6.4-8.2) Albumin 3.3 g/dL (3.4-5.0) Albumin/Globulin Ratio 0.8 (1.0-1.7) Test 09/07/18 00:01 09/07/18 04:30 09/07/18 07:40 09/07/18 11:36 Magnesium Level 1.3 mg/dL (1.8-2.4) White Blood Count 10.3 x10^3/uL (4.0-11.0) Red Blood Count 4.03 x10^6/uL (3.50-5.40) Hemoglobin 11.9 g/dL (12.0-15.5) Hematocrit 36.4 % (36.0-47.0) Mean Corpuscular Volume 90 fL (79-100) Mean Corpuscular Hemoglobin 30 pg (25-35) Mean Corpuscular Hemoglobin Concent 33 g/dL (31-37) Red Cell Distribution Width 13.8 % (11.5-14.5) Platelet Count 218 x10^3/uL (140-400) Neutrophils (%) (Auto) 69 % (31-73) Lymphocytes (%) (Auto) 21 % (24-48) Monocytes (%) (Auto) 8 % (0-9) Eosinophils (%) (Auto) 1 % (0-3) Basophils (%) (Auto) 1 % (0-3) Neutrophils # (Auto) 7.1 x10^3uL (1.8-7.7) Lymphocytes # (Auto) 2.2 x10^3/uL (1.0-4.8) Monocytes # (Auto) 0.8 x10^3/uL (0.0-1.1) Eosinophils # (Auto) 0.1 x10^3/uL (0.0-0.7) Basophils # (Auto) 0.1 x10^3/uL (0.0-0.2) Sodium Level 142 mmol/L (136-145) Potassium Level 3.4 mmol/L (3.5-5.1) Chloride Level 101 mmol/L (98-107) Carbon Dioxide Level 34 mmol/L (21-32) Anion Gap 7 (6-14) Blood Urea Nitrogen 34 mg/dL (7-20) Creatinine 1.8 mg/dL (0.6-1.0) Estimated GFR (Cockcroft-Gault) 33.3 BUN/Creatinine Ratio 19 (6-20) Glucose Level 207 mg/dL (70-99) Hemoglobin A1c 7.7 % (4.8-5.6) Calcium Level 9.5 mg/dL (8.5-10.1) Total Bilirubin 0.3 mg/dL (0.2-1.0) Aspartate Amino Transf (AST/SGOT) 14 U/L (15-37) Alanine Aminotransferase (ALT/SGPT) 10 U/L (14-59) Alkaline Phosphatase 104 U/L (46-116) Total Protein 6.9 g/dL (6.4-8.2) Albumin 3.0 g/dL (3.4-5.0) Albumin/Globulin Ratio 0.8 (1.0-1.7) Glucose (Fingerstick) 187 mg/dL (70-99) 274 mg/dL (70-99) Test 09/07/18 17:02 09/07/18 20:49 09/08/18 07:00 09/08/18 07:44 Glucose (Fingerstick) 337 mg/dL (70-99) 307 mg/dL (70-99) 120 mg/dL (70-99) White Blood Count 8.6 x10^3/uL (4.0-11.0) Red Blood Count 4.00 x10^6/uL (3.50-5.40) Hemoglobin 11.7 g/dL (12.0-15.5) Hematocrit 36.4 % (36.0-47.0) Mean Corpuscular Volume 91 fL (79-100) Mean Corpuscular Hemoglobin 29 pg (25-35) Mean Corpuscular Hemoglobin Concent 32 g/dL (31-37) Red Cell Distribution Width 14.1 % (11.5-14.5) Platelet Count 230 x10^3/uL (140-400) Neutrophils (%) (Auto) 67 % (31-73) Lymphocytes (%) (Auto) 23 % (24-48) Monocytes (%) (Auto) 7 % (0-9) Eosinophils (%) (Auto) 2 % (0-3) Basophils (%) (Auto) 0 % (0-3) Neutrophils # (Auto) 5.8 x10^3uL (1.8-7.7) Lymphocytes # (Auto) 2.0 x10^3/uL (1.0-4.8) Monocytes # (Auto) 0.6 x10^3/uL (0.0-1.1) Eosinophils # (Auto) 0.2 x10^3/uL (0.0-0.7) Basophils # (Auto) 0.0 x10^3/uL (0.0-0.2) Sodium Level 142 mmol/L (136-145) Potassium Level 3.4 mmol/L (3.5-5.1) Chloride Level 99 mmol/L (98-107) Carbon Dioxide Level 35 mmol/L (21-32) Anion Gap 8 (6-14) Blood Urea Nitrogen 37 mg/dL (7-20) Creatinine 1.7 mg/dL (0.6-1.0) Estimated GFR (Cockcroft-Gault) 35.5 Glucose Level 114 mg/dL (70-99) Calcium Level 9.6 mg/dL (8.5-10.1) Magnesium Level 2.4 mg/dL (1.8-2.4) Test 09/08/18 12:11 Glucose (Fingerstick) 218 mg/dL (70-99) Laboratory Tests Test 09/07/18 17:02 09/07/18 20:49 09/08/18 07:00 09/08/18 07:44 Glucose (Fingerstick) 337 mg/dL (70-99) 307 mg/dL (70-99) 120 mg/dL (70-99) White Blood Count 8.6 x10^3/uL (4.0-11.0) Red Blood Count 4.00 x10^6/uL (3.50-5.40) Hemoglobin 11.7 g/dL (12.0-15.5) Hematocrit 36.4 % (36.0-47.0) Mean Corpuscular Volume 91 fL (79-100) Mean Corpuscular Hemoglobin 29 pg (25-35) Mean Corpuscular Hemoglobin Concent 32 g/dL (31-37) Red Cell Distribution Width 14.1 % (11.5-14.5) Platelet Count 230 x10^3/uL (140-400) Neutrophils (%) (Auto) 67 % (31-73) Lymphocytes (%) (Auto) 23 % (24-48) Monocytes (%) (Auto) 7 % (0-9) Eosinophils (%) (Auto) 2 % (0-3) Basophils (%) (Auto) 0 % (0-3) Neutrophils # (Auto) 5.8 x10^3uL (1.8-7.7) Lymphocytes # (Auto) 2.0 x10^3/uL (1.0-4.8) Monocytes # (Auto) 0.6 x10^3/uL (0.0-1.1) Eosinophils # (Auto) 0.2 x10^3/uL (0.0-0.7) Basophils # (Auto) 0.0 x10^3/uL (0.0-0.2) Sodium Level 142 mmol/L (136-145) Potassium Level 3.4 mmol/L (3.5-5.1) Chloride Level 99 mmol/L (98-107) Carbon Dioxide Level 35 mmol/L (21-32) Anion Gap 8 (6-14) Blood Urea Nitrogen 37 mg/dL (7-20) Creatinine 1.7 mg/dL (0.6-1.0) Estimated GFR (Cockcroft-Gault) 35.5 Glucose Level 114 mg/dL (70-99) Calcium Level 9.6 mg/dL (8.5-10.1) Magnesium Level 2.4 mg/dL (1.8-2.4) Test 09/08/18 12:11 Glucose (Fingerstick) 218 mg/dL (70-99) Medications Current Medications Ondansetron HCl (Zofran Odt) 4 mg 1X ONCE PO Last administered on 09/06/18at 16:37; Start 09/06/18 at 16:30; Stop 09/06/18 at 16:31; Status DC Acetaminophen/ Hydrocodone Bitart (Lortab 7.5/325) 1 tab 1X ONCE PO Last administered on 09/06/18at 16:37; Start 09/06/18 at 16:30; Stop 09/06/18 at 16:31; Status DC Insulin Human Lispro (HumaLOG VIAL) 5 unit 1X ONCE SQ ; Start 09/06/18 at 16:45; Stop 09/06/18 at 16:46; Status UNV Insulin Human Regular (HumuLIN R VIAL) 5 unit 1X ONCE IV ; Start 09/06/18 at 16:45; Stop 09/06/18 at 16:46; Status DC Insulin Human Regular (HumuLIN R VIAL) 5 unit 1X ONCE SQ Last administered on 09/06/18at 17:17; Start 09/06/18 at 16:45; Stop 09/06/18 at 16:48; Status DC Fentanyl Citrate (Fentanyl 2ml Vial) 25 mcg 1X ONCE IM Last administered on 09/06/18at 18:31; Start 09/06/18 at 18:15; Stop 09/06/18 at 18:16; Status DC Sodium Chloride 1,000 ml @ 1,000 mls/hr 1X ONCE IV Last administered on 09/06/18at 19:29; Start 09/06/18 at 19:00; Stop 09/06/18 at 19:59; Status DC Ondansetron HCl (Zofran) 4 mg PRN Q8HRS PRN IV NAUSEA/VOMITING Last administere d on 09/07/18at 13:08; Start 09/06/18 at 20:00; Stop 09/07/18 at 19:59; Status DC Morphine Sulfate (Morphine Sulfate) 2 mg PRN Q2HR PRN IV PAIN Last administered on 09/06/18at 23:48; Start 09/06/18 at 20:00; Stop 09/07/18 at 19:59; Status DC Potassium Chloride (Klor-Con) 20 meq 1X ONCE PO Last administered on 09/06/18at 20:42; Start 09/06/18 at 20:45; Stop 09/06/18 at 20:46; Status DC Insulin Human Lispro (HumaLOG) 0-5 UNITS TIDWMEALS SQ ; Start 09/07/18 at 08:00; Stop 09/07/18 at 08:00; Status DC Dextrose (Dextrose 50%-Water Syringe) 12.5 gm PRN Q15MIN PRN IV SEE COMMENTS; Start 09/06/18 at 20:45; Status Cancel Acetaminophen/ Hydrocodone Bitart (Lortab 5/325) 1 tab PRN Q4HRS PRN PO PAIN Last administered on 09/08/18 06:16; Start 09/06/18 at 21:45 Potassium Chloride (Klor-Con) 40 meq 1X ONCE PO Last administered on 09/06/18 22:40; Start 09/06/18 at 22:00; Stop 09/06/18 at 22:01; Status DC Potassium Chloride (Klor-Con) 20 meq DAILYWBKFT PO Last administered on 09/08/18 10:42; Start 09/07/18 at 08:00 Amlodipine Besylate (Norvasc) 10 mg DAILY PO Last administered on 09/08/18 10:43; Start 09/07/18 at 09:00 Aspirin (Ecotrin) 81 mg DAILY PO Last administered on 09/08/18 10:42; Start 09/07/18 at 09:00 Atorvastatin Calcium (Lipitor) 40 mg HS PO Last administered on 09/07/18 20:35; Start 09/07/18 at 21:00 Gabapentin (Neurontin) 100 mg BID PO ; Start 09/06/18 at 22:00; Status Cancel Metoprolol Succinate (Toprol Xl) 1,875 mg DAILY PO ; Start 09/07/18 at 09:00; Status UNV Oxybutynin Chloride (Ditropan) 10 mg HS PO Last administered on 09/07/18 20:35; Start 09/06/18 at 22:00 Sertraline HCl (Zoloft) 50 mg DAILY PO Last administered on 09/08/18 10:43; Start 09/07/18 at 09:00 Donepezil HCl (Aricept) 10 mg QHS PO Last administered on 09/07/18 20:35; Start 09/06/18 at 22:00 Non-Formulary Medication (Insulin Aspart (Novolog Flexpen)) TIDWMEALS SQ ; Start 09/07/18 at 08:00; Status UNV Insulin Glargine (Lantus) 40 units QHS SQ Last administered on 09/07/18 22:58; Start 09/06/18 at 22:00 Metolazone (Zaroxolyn) 2.5 mg DAILY PO Last administered on 09/08/18 10:42; Start 09/07/18 at 09:00 Pioglitazone HCl (Actos) 30 mg DAILY PO Last administered on 09/08/18 10:41; Start 09/07/18 at 09:00 Insulin Human Lispro (HumaLOG) 0-9 UNITS TIDWMEALS SQ Last administered on 09/07/18 17:30; Start 09/07/18 at 08:00 Dextrose (Dextrose 50%-Water Syringe) 12.5 gm PRN Q15MIN PRN IV SEE COMMENTS; Start 09/06/18 at 21:45 Albuterol/ Ipratropium (Duoneb) 3 ml RTQID NEB Last administered on 09/08/18 11:36; Start 09/07/18 at 08:00 Enoxaparin Sodium (Lovenox Per Pharmacy Prophylaxis Dosing) 1 each PRN DAILY PRN MC SEE COMMENTS; Start 09/06/18 at 21:45 Magnesium Sulfate 50 ml @ 25 mls/hr 1X ONCE IV Last administered on 09/06/18at 22:51; Start 09/06/18 at 23:00; Stop 09/07/18 at 00:59; Status DC Enoxaparin Sodium (Lovenox 40mg Syringe) 40 mg Q24H SQ Last administered on 09/07/18 22:52; Start 09/06/18 at 22:00 Metoprolol Succinate (Toprol Xl) 75 mg DAILY PO Last administered on 09/08/18 10:42; Start 09/07/18 at 09:00 Gabapentin (Neurontin) 300 mg BID PO Last administered on 09/08/18 10:41; Start 09/06/18 at 23:00 Diclofenac Sodium (Voltaren) 1 yudy BID TP Last administered on 09/08/18 10:50; Start 09/07/18 at 10:00 Magnesium Sulfate 50 ml @ 25 mls/hr PRN DAILY PRN IV for Mag < 1.7 on am labs Last administered on 09/07/18at 17:22; Start 09/07/18 at 13:15 Insulin Human Lispro (HumaLOG) 5 units 1X ONCE SQ Last administered on 09/07/18 23:01; Start 09/07/18 at 22:30; Stop 09/07/18 at 22:31; Status DC Active Scripts Active Lasix (Furosemide) 40 Mg Tablet 1 Tab PO BID Hydrocodone-Apap 5-325 (Hydrocodone Bit/Acetaminophen) 1 Each Tablet 1 Tab PO PRN Q4HRS PRN 7 Days Novolog Flexpen (Insulin Aspart) 100 Unit/1 Ml Insuln.pen 0 Units SQ TIDWMEALS 30 Days Reported Gabapentin (Gabapentin) 300 Mg Capsule 300 Mg PO BID Gabapentin (Gabapentin) 300 Mg Capsule 300 Mg PO BID Metoprolol Succinate ( Xl ) (Metoprolol Succinate) 25 Mg Tab.er.24h 3 Tab PO DAILY Lasix (Furosemide) 40 Mg Tablet 1 Tab PO PRN DAILY PRN Give 40 mg PO Lasix PRN if pt gains 2 lbs in 1 day or 5 lbs in 1 week; if pt also shows signs of CHF exacerbation Furosemide 40 Mg Tablet 1 Tab PO BID 2 Days Losartan Potassium 50 Mg Tablet 50 Mg PO DAILY Metolazone 2.5 Mg Tablet 2.5 Mg PO DAILY Oxybutynin Chloride 5 Mg Tablet 10 Mg PO HS Levemir Flextouch (Insulin Detemir) 100 Unit/1 Ml Insuln.pen 40 Unit SQ HS Pioglitazone Hcl 30 Mg Tablet 30 Mg PO DAILY Zoloft (Sertraline Hcl) 50 Mg Tablet 1 Tab PO DAILY Atorvastatin Calcium 40 Mg Tablet 40 Mg PO HS Aspirin Ec (Aspirin) 81 Mg Tablet.dr 81 Mg PO Amlodipine Besylate 10 Mg Tablet 10 Mg PO DAILY Donepezil Hcl 10 Mg Tablet 10 Mg PO HS Vitals/I & O Vital Sign - Last 24 Hours 09/07/18 09/07/18 09/07/18 09/07/18 12:48 13:09 15:00 15:59 Temp 98.5 98.5 Pulse 68 Resp 20 16 B/P (MAP) 141/60 (87) Pulse Ox 98 95 98 O2 Delivery Nasal Cannula Nasal Cannula Room Air Nasal Cannula O2 Flow Rate 2.0 2.0 2.0 09/07/18 09/07/18 09/07/18 09/07/18 19:00 19:57 20:00 23:00 Temp 97.9 98.1 97.9 98.1 Pulse 51 66 Resp 16 16 B/P (MAP) 121/64 (83) 146/58 (87) Pulse Ox 100 98 92 O2 Delivery Room Air Nasal Cannula Nasal Cannula Room Air O2 Flow Rate 2.0 2.0 09/08/18 09/08/18 09/08/18 09/08/18 03:00 06:16 07:00 07:16 Temp 98.3 97.7 98.3 97.7 Pulse 69 66 Resp 16 16 20 B/P (MAP) 135/64 (87) 141/78 (99) Pulse Ox 92 98 93 O2 Delivery Room Air Nasal Cannula Nasal Cannula Nasal Cannula O2 Flow Rate 2.0 2.0 2.0 09/08/18 09/08/18 09/08/18 10:42 10:43 11:37 Pulse 66 66 B/P (MAP) 141/78 141/78 O2 Delivery Nasal Cannula O2 Flow Rate 2.0 Intake and Output 09/07/18 09/07/18 09/08/18 14:59 22:59 06:59 Intake Total 200 ml Balance 200 ml MARIFER BOLAÑOS III DO Sep 08, 2018 12:34
[2018-09-08 15:00] VITALS: BP 129/53
[2018-09-08 19:00] VITALS: BP 138/57
[2018-09-08] MEDS: OXYBUTYNIN CHLORIDE 5 MG TABLET PO SCH (21:00)
[2018-09-08] MEDS: DONEPEZIL HCL 10 MG TABLET. PO SCH (22:37)
[2018-09-08] MEDS: ATORVASTATIN CALCIUM 40 MG TABLET. PO SCH (22:37)
[2018-09-08] MEDS: ENOXAPARIN 40 MG/0.4 ML SYRINGE. SQ SCH (22:38)
[2018-09-08] MEDS: INSULIN GLARGINE 300 UNITS/3 ML INSULN.PEN. SQ SCH (22:46)
[2018-09-08 23:00] VITALS: BP 166/68
[2018-09-09 03:00] VITALS: BP 131/54
[2018-09-09 07:00] VITALS: BP 114/46
[2018-09-09] MEDS: IPRATRPIUM/ALBUTEROL 0.5/2.5MG 3 ML NEBU. NEB SCH ×4 (07:25→20:31)
[2018-09-09 07:54] LABS: BASO % 0 % (0-3); EOS # 0.3 x10^3/uL (0.0-0.7); EOS % 4 % (0-3); HEMATOCRIT 34.3 % (36.0-47.0); HEMOGLOBIN 11.3 g/dL (12.0-15.5); LYMPH # 1.5 x10^3/uL (1.0-4.8); LYMPH % 19 % (24-48); MEAN CORPUSCULAR HEMOGLOBIN 30 pg (25-35); MEAN CORPUSCULAR HGB CONC 33 g/dL (31-37); MEAN CORPUSCULAR VOLUME 91 fL (79-100); MONO # 0.6 x10^3/uL (0.0-1.1); MONO % 7 % (0-9); NEUT # 5.6 x10^3uL (1.8-7.7); NEUT % 70 % (31-73); PLATELET COUNT 210 x10^3/uL (140-400); RED BLOOD COUNT 3.77 x10^6/uL (3.50-5.40); RED CELL DISTRIBUTION WIDTH 13.9 % (11.5-14.5)
[2018-09-09] MEDS: INSULIN LISPRO 300 UNITS/3 ML INSULN.PEN. SQ SCH ×3 (08:00→17:29)
[2018-09-09 08:07] LABS: CALCIUM 9.7 mg/dL (8.5-10.1); CREATININE 1.8 mg/dL (0.6-1.0); GFR 33.3; MAGNESIUM 2.3 mg/dL (1.8-2.4); POTASSIUM 3.6 mmol/L (3.5-5.1)
[2018-09-09] MEDS: PIOGLITAZONE 15 MG TABLET. PO SCH (08:28)
[2018-09-09] MEDS: SERTRALINE 50 MG TABLET. PO SCH (08:29)
[2018-09-09] MEDS: POTASSIUM CHLORIDE 20 MEQ TABLET.ER. PO SCH (08:29)
[2018-09-09] MEDS: GABAPENTIN 300 MG CAPSULE. PO SCH ×2 (08:29→21:11)
[2018-09-09] MEDS: ASPIRIN ENTERIC COATED 81 MG TABLET.DR. PO SCH (08:30)
[2018-09-09] MEDS: metOLazone 2.5 MG TABLET PO SCH (08:30)
[2018-09-09] MEDS: DICLOFENAC SODIUM 1% TOPICAL GEL 100GM TUBE. TP SCH ×2 (08:31→21:12)
[2018-09-09] MEDS: METOPROLOL SUCC 24HR ER 25 MG TAB.ER.24H. PO SCH (09:00)
[2018-09-09] MEDS: amLODIPine BESYLATE 10 MG TABLET PO SCH (09:00)
[2018-09-09] MEDS ORDERED: BUPIVACAINE MPF 0.25% 10 ML VIAL. IJ ONE (09:15)
[2018-09-09] MEDS ORDERED: methylPREDNISolone ACETATE 40 MG/ML VIAL. IM ONE (09:15)
--- NOTE | 2018-09-09 09:21 | PDOC ---
PROGRESS NOTES Subjective Subjective She admits pain in her back of head,neck,buttock and knees. Objective Objective Vital Signs Date Time Temp Pulse Resp B/P (MAP) Pulse Ox O2 Delivery O2 Flow Rate FiO2 09/09/18 08:00 Nasal Cannula 2.0 09/09/18 07:26 98 09/09/18 03:00 98.2 70 16 131/54 (79) 98.2 Intake and Output 09/09/18 06:59 Intake Total 0 ml Output Total 0 ml Balance 0 ml Intake Oral 0 ml Output Urine Total 0 ml # Voids 5 Physical Exam Physical Exam She is alert and in no acute distress an she is sitting in bed with head end propped up and using oxygen by nasal canula. She continues with diffuse tenderness to palpation over scalp hematoma,cervical and lumbar paraspinal muscles and crepitus on ROM of her knees.She got up and walked with physical therapy yesterday. Assessment Assessment Problems Medical Problems: (1) Coccyx pain Status: Acute (2) Hematoma of scalp Status: Acute (3) Hyperglycemia Status: Acute Plan Plan of Care At her request,I have injected her left knee joint under aseptic skin technique with 2 ml of 0.25% bupivacaine solution mixed with 1 ml of methylprednisone, 40 mg/1 ml solution and she tolerated the procedure satisfactorily without any side effects. Comment Review of Relevant I have reviewed the following items joel (where applicable) has been applied. Labs Laboratory Tests Test 09/07/18 11:36 09/07/18 17:02 09/07/18 20:49 09/08/18 07:00 Glucose (Fingerstick) 274 mg/dL (70-99) 337 mg/dL (70-99) 307 mg/dL (70-99) White Blood Count 8.6 x10^3/uL (4.0-11.0) Red Blood Count 4.00 x10^6/uL (3.50-5.40) Hemoglobin 11.7 g/dL (12.0-15.5) Hematocrit 36.4 % (36.0-47.0) Mean Corpuscular Volume 91 fL (79-100) Mean Corpuscular Hemoglobin 29 pg (25-35) Mean Corpuscular Hemoglobin Concent 32 g/dL (31-37) Red Cell Distribution Width 14.1 % (11.5-14.5) Platelet Count 230 x10^3/uL (140-400) Neutrophils (%) (Auto) 67 % (31-73) Lymphocytes (%) (Auto) 23 % (24-48) Monocytes (%) (Auto) 7 % (0-9) Eosinophils (%) (Auto) 2 % (0-3) Basophils (%) (Auto) 0 % (0-3) Neutrophils # (Auto) 5.8 x10^3uL (1.8-7.7) Lymphocytes # (Auto) 2.0 x10^3/uL (1.0-4.8) Monocytes # (Auto) 0.6 x10^3/uL (0.0-1.1) Eosinophils # (Auto) 0.2 x10^3/uL (0.0-0.7) Basophils # (Auto) 0.0 x10^3/uL (0.0-0.2) Sodium Level 142 mmol/L (136-145) Potassium Level 3.4 mmol/L (3.5-5.1) Chloride Level 99 mmol/L (98-107) Carbon Dioxide Level 35 mmol/L (21-32) Anion Gap 8 (6-14) Blood Urea Nitrogen 37 mg/dL (7-20) Creatinine 1.7 mg/dL (0.6-1.0) Estimated GFR (Cockcroft-Gault) 35.5 Glucose Level 114 mg/dL (70-99) Calcium Level 9.6 mg/dL (8.5-10.1) Magnesium Level 2.4 mg/dL (1.8-2.4) Test 09/08/18 07:44 09/08/18 12:11 09/08/18 16:58 09/08/18 21:27 Glucose (Fingerstick) 120 mg/dL (70-99) 218 mg/dL (70-99) 177 mg/dL (70-99) 198 mg/dL (70-99) Test 09/09/18 06:50 09/09/18 06:55 09/09/18 08:14 White Blood Count 8.0 x10^3/uL (4.0-11.0) Red Blood Count 3.77 x10^6/uL (3.50-5.40) Hemoglobin 11.3 g/dL (12.0-15.5) Hematocrit 34.3 % (36.0-47.0) Mean Corpuscular Volume 91 fL (79-100) Mean Corpuscular Hemoglobin 30 pg (25-35) Mean Corpuscular Hemoglobin Concent 33 g/dL (31-37) Red Cell Distribution Width 13.9 % (11.5-14.5) Platelet Count 210 x10^3/uL (140-400) Neutrophils (%) (Auto) 70 % (31-73) Lymphocytes (%) (Auto) 19 % (24-48) Monocytes (%) (Auto) 7 % (0-9) Eosinophils (%) (Auto) 4 % (0-3) Basophils (%) (Auto) 0 % (0-3) Neutrophils # (Auto) 5.6 x10^3uL (1.8-7.7) Lymphocytes # (Auto) 1.5 x10^3/uL (1.0-4.8) Monocytes # (Auto) 0.6 x10^3/uL (0.0-1.1) Eosinophils # (Auto) 0.3 x10^3/uL (0.0-0.7) Basophils # (Auto) 0.0 x10^3/uL (0.0-0.2) Sodium Level 143 mmol/L (136-145) Potassium Level 3.6 mmol/L (3.5-5.1) Chloride Level 103 mmol/L (98-107) Carbon Dioxide Level 34 mmol/L (21-32) Anion Gap 6 (6-14) Blood Urea Nitrogen 38 mg/dL (7-20) Creatinine 1.8 mg/dL (0.6-1.0) Estimated GFR (Cockcroft-Gault) 33.3 Glucose Level 69 mg/dL (70-99) Calcium Level 9.7 mg/dL (8.5-10.1) Magnesium Level 2.3 mg/dL (1.8-2.4) Glucose (Fingerstick) 62 mg/dL (70-99) Laboratory Tests Test 09/08/18 12:11 09/08/18 16:58 09/08/18 21:27 09/09/18 06:50 Glucose (Fingerstick) 218 mg/dL (70-99) 177 mg/dL (70-99) 198 mg/dL (70-99) White Blood Count 8.0 x10^3/uL (4.0-11.0) Red Blood Count 3.77 x10^6/uL (3.50-5.40) Hemoglobin 11.3 g/dL (12.0-15.5) Hematocrit 34.3 % (36.0-47.0) Mean Corpuscular Volume 91 fL (79-100) Mean Corpuscular Hemoglobin 30 pg (25-35) Mean Corpuscular Hemoglobin Concent 33 g/dL (31-37) Red Cell Distribution Width 13.9 % (11.5-14.5) Platelet Count 210 x10^3/uL (140-400) Neutrophils (%) (Auto) 70 % (31-73) Lymphocytes (%) (Auto) 19 % (24-48) Monocytes (%) (Auto) 7 % (0-9) Eosinophils (%) (Auto) 4 % (0-3) Basophils (%) (Auto) 0 % (0-3) Neutrophils # (Auto) 5.6 x10^3uL (1.8-7.7) Lymphocytes # (Auto) 1.5 x10^3/uL (1.0-4.8) Monocytes # (Auto) 0.6 x10^3/uL (0.0-1.1) Eosinophils # (Auto) 0.3 x10^3/uL (0.0-0.7) Basophils # (Auto) 0.0 x10^3/uL (0.0-0.2) Test 09/09/18 06:55 09/09/18 08:14 Sodium Level 143 mmol/L (136-145) Potassium Level 3.6 mmol/L (3.5-5.1) Chloride Level 103 mmol/L (98-107) Carbon Dioxide Level 34 mmol/L (21-32) Anion Gap 6 (6-14) Blood Urea Nitrogen 38 mg/dL (7-20) Creatinine 1.8 mg/dL (0.6-1.0) Estimated GFR (Cockcroft-Gault) 33.3 Glucose Level 69 mg/dL (70-99) Calcium Level 9.7 mg/dL (8.5-10.1) Magnesium Level 2.3 mg/dL (1.8-2.4) Glucose (Fingerstick) 62 mg/dL (70-99) Medications Current Medications Ondansetron HCl (Zofran Odt) 4 mg 1X ONCE PO Last administered on 09/06/18 16:37; Start 09/06/18 at 16:30; Stop 09/06/18 at 16:31; Status DC Acetaminophen/ Hydrocodone Bitart (Lortab 7.5/325) 1 tab 1X ONCE PO Last administered on 09/06/18 16:37; Start 09/06/18 at 16:30; Stop 09/06/18 at 16:31; Status DC Insulin Human Lispro (HumaLOG VIAL) 5 unit 1X ONCE SQ ; Start 09/06/18 at 16:45; Stop 09/06/18 at 16:46; Status UNV Insulin Human Regular (HumuLIN R VIAL) 5 unit 1X ONCE IV ; Start 09/06/18 at 16:45; Stop 09/06/18 at 16:46; Status DC Insulin Human Regular (HumuLIN R VIAL) 5 unit 1X ONCE SQ Last administered on 09/06/18at 17:17; Start 09/06/18 at 16:45; Stop 09/06/18 at 16:48; Status DC Fentanyl Citrate (Fentanyl 2ml Vial) 25 mcg 1X ONCE IM Last administered on 09/06/18at 18:31; Start 09/06/18 at 18:15; Stop 09/06/18 at 18:16; Status DC Sodium Chloride 1,000 ml @ 1,000 mls/hr 1X ONCE IV Last administered on 09/06/18at 19:29; Start 09/06/18 at 19:00; Stop 09/06/18 at 19:59; Status DC Ondansetron HCl (Zofran) 4 mg PRN Q8HRS PRN IV NAUSEA/VOMITING Last administered on 09/07/18 13:08; Start 09/06/18 at 20:00; Stop 09/07/18 at 19:59; Status DC Morphine Sulfate (Morphine Sulfate) 2 mg PRN Q2HR PRN IV PAIN Last administered on 09/06/18at 23:48; Start 09/06/18 at 20:00; Stop 09/07/18 at 19:59; Status DC Potassium Chloride (Klor-Con) 20 meq 1X ONCE PO Last administered on 09/06/18at 20:42; Start 09/06/18 at 20:45; Stop 09/06/18 at 20:46; Status DC Insulin Human Lispro (HumaLOG) 0-5 UNITS TIDWMEALS SQ ; Start 09/07/18 at 08:00; Stop 09/07/18 at 08:00; Status DC Dextrose (Dextrose 50%-Water Syringe) 12.5 gm PRN Q15MIN PRN IV SEE COMMENTS; Start 09/06/18 at 20:45; Status Cancel Acetaminophen/ Hydrocodone Bitart (Lortab 5/325) 1 tab PRN Q4HRS PRN PO PAIN Last administered on 09/08/18at 22:37; Start 09/06/18 at 21:45 Potassium Chloride (Klor-Con) 40 meq 1X ONCE PO Last administered on 09/06/18at 22:40; Start 09/06/18 at 22:00; Stop 09/06/18 at 22:01; Status DC Potassium Chloride (Klor-Con) 20 meq DAILYWBKFT PO Last administered on 09/09/18at 08:29; Start 09/07/18 at 08:00 Amlodipine Besylate (Norvasc) 10 mg DAILY PO Last administered on 09/08/18at 10:43; Start 09/07/18 at 09:00 Aspirin (Ecotrin) 81 mg DAILY PO Last administered on 09/09/18 08:30; Start 09/07/18 at 09:00 Atorvastatin Calcium (Lipitor) 40 mg HS PO Last administered on 09/08/18 22:37; Start 09/07/18 at 21:00 Gabapentin (Neurontin) 100 mg BID PO ; Start 09/06/18 at 22:00; Status Cancel Metoprolol Succinate (Toprol Xl) 1,875 mg DAILY PO ; Start 09/07/18 at 09:00; Status UNV Oxybutynin Chloride (Ditropan) 10 mg HS PO Last administered on 09/08/18at 21:00; Start 09/06/18 at 22:00 Sertraline HCl (Zoloft) 50 mg DAILY PO Last administered on 09/09/18 08:29; Start 09/07/18 at 09:00 Donepezil HCl (Aricept) 10 mg QHS PO Last administered on 09/08/18at 22:37; Start 09/06/18 at 22:00 Non-Formulary Medication (Insulin Aspart (Novolog Flexpen)) TIDWMEALS SQ ; Start 09/07/18 at 08:00; Status UNV Insulin Glargine (Lantus) 40 units QHS SQ Last administered on 09/08/18at 22:46; Start 09/06/18 at 22:00 Metolazone (Zaroxolyn) 2.5 mg DAILY PO Last administered on 09/09/18 08:30; Start 09/07/18 at 09:00 Pioglitazone HCl (Actos) 30 mg DAILY PO Last administered on 09/09/18 08:28; Start 09/07/18 at 09:00 Insulin Human Lispro (HumaLOG) 0-9 UNITS TIDWMEALS SQ Last administered on 09/08/18 17:20; Start 09/07/18 at 08:00 Dextrose (Dextrose 50%-Water Syringe) 12.5 gm PRN Q15MIN PRN IV SEE COMMENTS; Start 09/06/18 at 21:45 Albuterol/ Ipratropium (Duoneb) 3 ml RTQID NEB Last administered on 09/09/18 07:25; Start 09/07/18 at 08:00 Enoxaparin Sodium (Lovenox Per Pharmacy Prophylaxis Dosing) 1 each PRN DAILY PRN MC SEE COMMENTS; Start 09/06/18 at 21:45 Magnesium Sulfate 50 ml @ 25 mls/hr 1X ONCE IV Last administered on 09/06/18at 22:51; Start 09/06/18 at 23:00; Stop 09/07/18 at 00:59; Status DC Enoxaparin Sodium (Lovenox 40mg Syringe) 40 mg Q24H SQ Last administered on 09/08/18 22:38; Start 09/06/18 at 22:00 Metoprolol Succinate (Toprol Xl) 75 mg DAILY PO Last administered on 09/08/18at 10:42; Start 09/07/18 at 09:00 Gabapentin (Neurontin) 300 mg BID PO Last administered on 09/09/18 08:29; Start 09/06/18 at 23:00 Diclofenac Sodium (Voltaren) 1 yudy BID TP Last administered on 09/09/18 08:31; Start 09/07/18 at 10:00 Magnesium Sulfate 50 ml @ 25 mls/hr PRN DAILY PRN IV for Mag < 1.7 on am labs Last administered on 09/07/18at 17:22; Start 09/07/18 at 13:15 Insulin Human Lispro (HumaLOG) 5 units 1X ONCE SQ Last administered on 09/07/18at 23:01; Start 09/07/18 at 22:30; Stop 09/07/18 at 22:31; Status DC Methylprednisolone Acetate (DEPO-Medrol 40MG VIAL) 40 mg 1X ONCE IM ; Start 09/09/18 at 09:15; Stop 09/09/18 at 09:16 Bupivacaine HCl (Sensorcaine-Mpf 0.25%) 10 ml 1X ONCE IJ ; Start 09/09/18 at 09:15; Stop 09/09/18 at 09:16 Active Scripts Active Lasix (Furosemide) 40 Mg Tablet 1 Tab PO BID Hydrocodone-Apap 5-325 (Hydrocodone Bit/Acetaminophen) 1 Each Tablet 1 Tab PO PRN Q4HRS PRN 7 Days Novolog Flexpen (Insulin Aspart) 100 Unit/1 Ml Insuln.pen 0 Units SQ TIDWMEALS 30 Days Reported Gabapentin (Gabapentin) 300 Mg Capsule 300 Mg PO BID Gabapentin (Gabapentin) 300 Mg Capsule 300 Mg PO BID Metoprolol Succinate ( Xl ) (Metoprolol Succinate) 25 Mg Tab.er.24h 3 Tab PO DAILY Lasix (Furosemide) 40 Mg Tablet 1 Tab PO PRN DAILY PRN Give 40 mg PO Lasix PRN if pt gains 2 lbs in 1 day or 5 lbs in 1 week; if pt also shows signs of CHF exacerbation Furosemide 40 Mg Tablet 1 Tab PO BID 2 Days Losartan Potassium 50 Mg Tablet 50 Mg PO DAILY Metolazone 2.5 Mg Tablet 2.5 Mg PO DAILY Oxybutynin Chloride 5 Mg Tablet 10 Mg PO HS Levemir Flextouch (Insulin Detemir) 100 Unit/1 Ml Insuln.pen 40 Unit SQ HS Pioglitazone Hcl 30 Mg Tablet 30 Mg PO DAILY Zoloft (Sertraline Hcl) 50 Mg Tablet 1 Tab PO DAILY Atorvastatin Calcium 40 Mg Tablet 40 Mg PO HS Aspirin Ec (Aspirin) 81 Mg Tablet.dr 81 Mg PO Amlodipine Besylate 10 Mg Tablet 10 Mg PO DAILY Donepezil Hcl 10 Mg Tablet 10 Mg PO HS Vitals/I & O Vital Sign - Last 24 Hours 09/08/18 09/08/18 09/08/18 09/08/18 10:42 10:43 11:00 11:37 Temp 97.8 97.8 Pulse 66 66 65 Resp 16 B/P (MAP) 141/78 141/78 139/64 (89) Pulse Ox 93 O2 Delivery Nasal Cannula Nasal Cannula O2 Flow Rate 2.0 2.0 09/08/18 09/08/18 09/08/18 09/08/18 13:20 14:20 15:00 15:48 Temp 98.1 98.1 Pulse 58 Resp 20 20 16 B/P (MAP) 129/53 (78) Pulse Ox 96 O2 Delivery Nasal Cannula Nasal Cannula Nasal Cannula Nasal Cannula O2 Flow Rate 2.0 3.0 2.0 2.0 09/08/18 09/08/18 09/08/18 09/08/18 19:00 20:00 20:35 23:00 Temp 97.4 98.0 97.4 98.0 Pulse 55 57 Resp 16 16 B/P (MAP) 138/57 (84) 166/68 (100) Pulse Ox 96 96 O2 Delivery Nasal Cannula Nasal Cannula Nasal Cannula Nasal Cannula O2 Flow Rate 2.0 2.0 2.0 2.0 09/09/18 09/09/18 09/09/18 03:00 07:26 08:00 Temp 98.2 98.2 Pulse 70 Resp 16 B/P (MAP) 131/54 (79) Pulse Ox 99 98 O2 Delivery Nasal Cannula Nasal Cannula Nasal Cannula O2 Flow Rate 2.0 2.0 2.0 Intake and Output 09/08/18 09/08/18 09/09/18 14:59 22:59 06:59 Intake Total 0 ml Output Total 0 ml Balance 0 ml 0 ml REBA ABEL MD Sep 09, 2018 09:21
--- NOTE | 2018-09-09 10:21 | PDOC ---
PROGRESS NOTES Chief Complaint Chief Complaint Head trauma, subgaleal hematoma History of Present Illness History of Present Illness Patient was seen and examined Patient was sitting up in a chair today. She states she still has some head tenderness. No intracranial hemorrhage. Large subgaleal hematoma at the vertex. No acute fracture or malalignment. hypertensive urgency.improving Diabetes. Obesity.morbid Obstructive sleep apnea. 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 Peripheral vascular disease. Vitals Vitals Vital Signs Date Time Temp Pulse Resp B/P (MAP) Pulse Ox O2 Delivery O2 Flow Rate FiO2 09/09/18 08:00 Nasal Cannula 2.0 09/09/18 07:26 98 09/09/18 03:00 98.2 70 16 131/54 (79) 98.2 Physical Exam General: Alert, Oriented X3, Cooperative, No acute distress, mild distress Heart: Regular rate Lungs: Clear (No wheezes, rales, or rhonchi) Abdomen: Normal bowel sounds, Soft Extremities: No edema Skin: No rashes, No breakdown, No significant lesion Labs LABS PATIENT: BURT HOWARD I ACCOUNT: [id number] : 1945 LOCATION: ER AGE: 73 SEX: F EXAM STATUS: PRE ER ORD. PHYSICIAN: QUINTIN CARVALHO REASON: fell backwards off a stool, hit back of head PROCEDURE: CT HEAD AND CERVICAL SPINE WO Examination: CT HEAD AND CERVICAL SPINE WO, CT THORACIC SPINE WO CONTRAST History: fell off stool hitting buttock then head PREV SENT Comparison/Correlation: 03/14/2016 CT head and cervical spine Findings: Axial images of the head, cervical spine, and thoracic spine were obtained. Sagittal and coronal reformatted images of the cervical and thoracic spine were provided. Advanced atrophy and chronic ischemic changes white matter is noted. Large subgaleal hematoma is present at the posterior vertex. It is of greater extent at the right posterior vertex. It measures 8.4 cm transverse by 3.3 cm anteroposterior no intracranial hemorrhage, midline shift, or mass effect. No depressed skull fracture. Bilateral maxillary defects at C3, C4, C5 noted. Rods are present bilaterally involving the cervical spine with associated screws involving the posterior facets from C3 to C6 on the right and left. Bony density along the posterior aspect of the vertebral bodies from the tip of the dens to C4 for is noted. Correlate with bone graft placement history. Spurring is notable involving the anterior aspect of the mid to lower cervical spine. Enlarged left thyroid lobe which is heterogeneous in appearance identified. Alignment of the cervical and thoracic spine is unremarkable. Significant spurring along the posterior margin of T3 vertebral body is evident with spinal canal stenosis of up to 50 percent. Spurring along the T4-5 disc space level also is present with mild spinal canal stenosis. No acute fracture or bony destruction. Vertebral body heights are adequate. Visualized soft tissues are unremarkable. Impression: No intracranial hemorrhage. Large subgaleal hematoma at the vertex. No acute fracture or malalignment. Laboratory Tests Test 09/08/18 12:11 09/08/18 16:58 09/08/18 21:27 09/09/18 06:50 Glucose (Fingerstick) 218 mg/dL (70-99) 177 mg/dL (70-99) 198 mg/dL (70-99) White Blood Count 8.0 x10^3/uL (4.0-11.0) Red Blood Count 3.77 x10^6/uL (3.50-5.40) Hemoglobin 11.3 g/dL (12.0-15.5) Hematocrit 34.3 % (36.0-47.0) Mean Corpuscular Volume 91 fL (79-100) Mean Corpuscular Hemoglobin 30 pg (25-35) Mean Corpuscular Hemoglobin Concent 33 g/dL (31-37) Red Cell Distribution Width 13.9 % (11.5-14.5) Platelet Count 210 x10^3/uL (140-400) Neutrophils (%) (Auto) 70 % (31-73) Lymphocytes (%) (Auto) 19 % (24-48) Monocytes (%) (Auto) 7 % (0-9) Eosinophils (%) (Auto) 4 % (0-3) Basophils (%) (Auto) 0 % (0-3) Neutrophils # (Auto) 5.6 x10^3uL (1.8-7.7) Lymphocytes # (Auto) 1.5 x10^3/uL (1.0-4.8) Monocytes # (Auto) 0.6 x10^3/uL (0.0-1.1) Eosinophils # (Auto) 0.3 x10^3/uL (0.0-0.7) Basophils # (Auto) 0.0 x10^3/uL (0.0-0.2) Test 09/09/18 06:55 09/09/18 08:14 Sodium Level 143 mmol/L (136-145) Potassium Level 3.6 mmol/L (3.5-5.1) Chloride Level 103 mmol/L (98-107) Carbon Dioxide Level 34 mmol/L (21-32) Anion Gap 6 (6-14) Blood Urea Nitrogen 38 mg/dL (7-20) Creatinine 1.8 mg/dL (0.6-1.0) Estimated GFR (Cockcroft-Gault) 33.3 Glucose Level 69 mg/dL (70-99) Calcium Level 9.7 mg/dL (8.5-10.1) Magnesium Level 2.3 mg/dL (1.8-2.4) Glucose (Fingerstick) 62 mg/dL (70-99) Assessment and Plan Assessmemt and Plan Problems Medical Problems: (1) Coccyx pain Status: Acute (2) Hematoma of scalp Status: Acute (3) Hyperglycemia Status: Acute Comment Review of Relevant I have reviewed the following items joel (where applicable) has been applied. Labs Laboratory Tests Test 09/07/18 11:36 09/07/18 17:02 09/07/18 20:49 09/08/18 07:00 Glucose (Fingerstick) 274 mg/dL (70-99) 337 mg/dL (70-99) 307 mg/dL (70-99) White Blood Count 8.6 x10^3/uL (4.0-11.0) Red Blood Count 4.00 x10^6/uL (3.50-5.40) Hemoglobin 11.7 g/dL (12.0-15.5) Hematocrit 36.4 % (36.0-47.0) Mean Corpuscular Volume 91 fL (79-100) Mean Corpuscular Hemoglobin 29 pg (25-35) Mean Corpuscular Hemoglobin Concent 32 g/dL (31-37) Red Cell Distribution Width 14.1 % (11.5-14.5) Platelet Count 230 x10^3/uL (140-400) Neutrophils (%) (Auto) 67 % (31-73) Lymphocytes (%) (Auto) 23 % (24-48) Monocytes (%) (Auto) 7 % (0-9) Eosinophils (%) (Auto) 2 % (0-3) Basophils (%) (Auto) 0 % (0-3) Neutrophils # (Auto) 5.8 x10^3uL (1.8-7.7) Lymphocytes # (Auto) 2.0 x10^3/uL (1.0-4.8) Monocytes # (Auto) 0.6 x10^3/uL (0.0-1.1) Eosinophils # (Auto) 0.2 x10^3/uL (0.0-0.7) Basophils # (Auto) 0.0 x10^3/uL (0.0-0.2) Sodium Level 142 mmol/L (136-145) Potassium Level 3.4 mmol/L (3.5-5.1) Chloride Level 99 mmol/L (98-107) Carbon Dioxide Level 35 mmol/L (21-32) Anion Gap 8 (6-14) Blood Urea Nitrogen 37 mg/dL (7-20) Creatinine 1.7 mg/dL (0.6-1.0) Estimated GFR (Cockcroft-Gault) 35.5 Glucose Level 114 mg/dL (70-99) Calcium Level 9.6 mg/dL (8.5-10.1) Magnesium Level 2.4 mg/dL (1.8-2.4) Test 09/08/18 07:44 09/08/18 12:11 09/08/18 16:58 09/08/18 21:27 Glucose (Fingerstick) 120 mg/dL (70-99) 218 mg/dL (70-99) 177 mg/dL (70-99) 198 mg/dL (70-99) Test 09/09/18 06:50 09/09/18 06:55 09/09/18 08:14 White Blood Count 8.0 x10^3/uL (4.0-11.0) Red Blood Count 3.77 x10^6/uL (3.50-5.40) Hemoglobin 11.3 g/dL (12.0-15.5) Hematocrit 34.3 % (36.0-47.0) Mean Corpuscular Volume 91 fL (79-100) Mean Corpuscular Hemoglobin 30 pg (25-35) Mean Corpuscular Hemoglobin Concent 33 g/dL (31-37) Red Cell Distribution Width 13.9 % (11.5-14.5) Platelet Count 210 x10^3/uL (140-400) Neutrophils (%) (Auto) 70 % (31-73) Lymphocytes (%) (Auto) 19 % (24-48) Monocytes (%) (Auto) 7 % (0-9) Eosinophils (%) (Auto) 4 % (0-3) Basophils (%) (Auto) 0 % (0-3) Neutrophils # (Auto) 5.6 x10^3uL (1.8-7.7) Lymphocytes # (Auto) 1.5 x10^3/uL (1.0-4.8) Monocytes # (Auto) 0.6 x10^3/uL (0.0-1.1) Eosinophils # (Auto) 0.3 x10^3/uL (0.0-0.7) Basophils # (Auto) 0.0 x10^3/uL (0.0-0.2) Sodium Level 143 mmol/L (136-145) Potassium Level 3.6 mmol/L (3.5-5.1) Chloride Level 103 mmol/L (98-107) Carbon Dioxide Level 34 mmol/L (21-32) Anion Gap 6 (6-14) Blood Urea Nitrogen 38 mg/dL (7-20) Creatinine 1.8 mg/dL (0.6-1.0) Estimated GFR (Cockcroft-Gault) 33.3 Glucose Level 69 mg/dL (70-99) Calcium Level 9.7 mg/dL (8.5-10.1) Magnesium Level 2.3 mg/dL (1.8-2.4) Glucose (Fingerstick) 62 mg/dL (70-99) Laboratory Tests Test 09/08/18 12:11 09/08/18 16:58 09/08/18 21:27 09/09/18 06:50 Glucose (Fingerstick) 218 mg/dL (70-99) 177 mg/dL (70-99) 198 mg/dL (70-99) White Blood Count 8.0 x10^3/uL (4.0-11.0) Red Blood Count 3.77 x10^6/uL (3.50-5.40) Hemoglobin 11.3 g/dL (12.0-15.5) Hematocrit 34.3 % (36.0-47.0) Mean Corpuscular Volume 91 fL (79-100) Mean Corpuscular Hemoglobin 30 pg (25-35) Mean Corpuscular Hemoglobin Concent 33 g/dL (31-37) Red Cell Distribution Width 13.9 % (11.5-14.5) Platelet Count 210 x10^3/uL (140-400) Neutrophils (%) (Auto) 70 % (31-73) Lymphocytes (%) (Auto) 19 % (24-48) Monocytes (%) (Auto) 7 % (0-9) Eosinophils (%) (Auto) 4 % (0-3) Basophils (%) (Auto) 0 % (0-3) Neutrophils # (Auto) 5.6 x10^3uL (1.8-7.7) Lymphocytes # (Auto) 1.5 x10^3/uL (1.0-4.8) Monocytes # (Auto) 0.6 x10^3/uL (0.0-1.1) Eosinophils # (Auto) 0.3 x10^3/uL (0.0-0.7) Basophils # (Auto) 0.0 x10^3/uL (0.0-0.2) Test 09/09/18 06:55 09/09/18 08:14 Sodium Level 143 mmol/L (136-145) Potassium Level 3.6 mmol/L (3.5-5.1) Chloride Level 103 mmol/L (98-107) Carbon Dioxide Level 34 mmol/L (21-32) Anion Gap 6 (6-14) Blood Urea Nitrogen 38 mg/dL (7-20) Creatinine 1.8 mg/dL (0.6-1.0) Estimated GFR (Cockcroft-Gault) 33.3 Glucose Level 69 mg/dL (70-99) Calcium Level 9.7 mg/dL (8.5-10.1) Magnesium Level 2.3 mg/dL (1.8-2.4) Glucose (Fingerstick) 62 mg/dL (70-99) Medications Current Medications Ondansetron HCl (Zofran Odt) 4 mg 1X ONCE PO Last administered on 09/06/18at 16:37; Start 09/06/18 at 16:30; Stop 09/06/18 at 16:31; Status DC Acetaminophen/ Hydrocodone Bitart (Lortab 7.5/325) 1 tab 1X ONCE PO Last administered on 09/06/18at 16:37; Start 09/06/18 at 16:30; Stop 09/06/18 at 16:31; Status DC Insulin Human Lispro (HumaLOG VIAL) 5 unit 1X ONCE SQ ; Start 09/06/18 at 16:45; Stop 09/06/18 at 16:46; Status UNV Insulin Human Regular (HumuLIN R VIAL) 5 unit 1X ONCE IV ; Start 09/06/18 at 16:45; Stop 09/06/18 at 16:46; Status DC Insulin Human Regular (HumuLIN R VIAL) 5 unit 1X ONCE SQ Last administered on 09/06/18at 17:17; Start 09/06/18 at 16:45; Stop 09/06/18 at 16:48; Status DC Fentanyl Citrate (Fentanyl 2ml Vial) 25 mcg 1X ONCE IM Last administered on 09/06/18 18:31; Start 09/06/18 at 18:15; Stop 09/06/18 at 18:16; Status DC Sodium Chloride 1,000 ml @ 1,000 mls/hr 1X ONCE IV Last administered on 09/06/18at 19:29; Start 09/06/18 at 19:00; Stop 09/06/18 at 19:59; Status DC Ondansetron HCl (Zofran) 4 mg PRN Q8HRS PRN IV NAUSEA/VOMITING Last administered on 09/07/18at 13:08; Start 09/06/18 at 20:00; Stop 09/07/18 at 19:59; Status DC Morphine Sulfate (Morphine Sulfate) 2 mg PRN Q2HR PRN IV PAIN Last administered on 09/06/18at 23:48; Start 09/06/18 at 20:00; Stop 09/07/18 at 19:59; Status DC Potassium Chloride (Klor-Con) 20 meq 1X ONCE PO Last administered on 09/06/18at 20:42; Start 09/06/18 at 20:45; Stop 09/06/18 at 20:46; Status DC Insulin Human Lispro (HumaLOG) 0-5 UNITS TIDWMEALS SQ ; Start 09/07/18 at 08:00; Stop 09/07/18 at 08:00; Status DC Dextrose (Dextrose 50%-Water Syringe) 12.5 gm PRN Q15MIN PRN IV SEE COMMENTS; Start 09/06/18 at 20:45; Status Cancel Acetaminophen/ Hydrocodone Bitart (Lortab 5/325) 1 tab PRN Q4HRS PRN PO PAIN Last administered on 09/08/18at 22:37; Start 09/06/18 at 21:45 Potassium Chloride (Klor-Con) 40 meq 1X ONCE PO Last administered on 09/06/18at 22:40; Start 09/06/18 at 22:00; Stop 09/06/18 at 22:01; Status DC Potassium Chloride (Klor-Con) 20 meq DAILYWBKFT PO Last administered on 09/09/18 08:29; Start 09/07/18 at 08:00 Amlodipine Besylate (Norvasc) 10 mg DAILY PO Last administered on 09/08/18at 10:43; Start 09/07/18 at 09:00 Aspirin (Ecotrin) 81 mg DAILY PO Last administered on 09/09/18 08:30; Start 09/07/18 at 09:00 Atorvastatin Calcium (Lipitor) 40 mg HS PO Last administered on 09/08/18 22:37; Start 09/07/18 at 21:00 Gabapentin (Neurontin) 100 mg BID PO ; Start 09/06/18 at 22:00; Status Cancel Metoprolol Succinate (Toprol Xl) 1,875 mg DAILY PO ; Start 09/07/18 at 09:00; Status UNV Oxybutynin Chloride (Ditropan) 10 mg HS PO Last administered on 09/08/18at 21:00; Start 09/06/18 at 22:00 Sertraline HCl (Zoloft) 50 mg DAILY PO Last administered on 09/09/18 08:29; Start 09/07/18 at 09:00 Donepezil HCl (Aricept) 10 mg QHS PO Last administered on 09/08/18 22:37; Start 09/06/18 at 22:00 Non-Formulary Medication (Insulin Aspart (Novolog Flexpen)) TIDWMEALS SQ ; Start 09/07/18 at 08:00; Status UNV Insulin Glargine (Lantus) 40 units QHS SQ Last administered on 09/08/18 22:46; Start 09/06/18 at 22:00 Metolazone (Zaroxolyn) 2.5 mg DAILY PO Last administered on 09/09/18 08:30; Start 09/07/18 at 09:00 Pioglitazone HCl (Actos) 30 mg DAILY PO Last administered on 09/09/18 08:28; Start 09/07/18 at 09:00 Insulin Human Lispro (HumaLOG) 0-9 UNITS TIDWMEALS SQ Last administered on 09/08/18 17:20; Start 09/07/18 at 08:00 Dextrose (Dextrose 50%-Water Syringe) 12.5 gm PRN Q15MIN PRN IV SEE COMMENTS; Start 09/06/18 at 21:45 Albuterol/ Ipratropium (Duoneb) 3 ml RTQID NEB Last administered on 09/09/18 07:25; Start 09/07/18 at 08:00 Enoxaparin Sodium (Lovenox Per Pharmacy Prophylaxis Dosing) 1 each PRN DAILY PRN MC SEE COMMENTS; Start 09/06/18 at 21:45 Magnesium Sulfate 50 ml @ 25 mls/hr 1X ONCE IV Last administered on 09/06/18 22:51; Start 09/06/18 at 23:00; Stop 09/07/18 at 00:59; Status DC Enoxaparin Sodium (Lovenox 40mg Syringe) 40 mg Q24H SQ Last administered on 09/08/18 22:38; Start 09/06/18 at 22:00 Metoprolol Succinate (Toprol Xl) 75 mg DAILY PO Last administered on 09/08/18 10:42; Start 09/07/18 at 09:00 Gabapentin (Neurontin) 300 mg BID PO Last administered on 09/09/18 08:29; Start 09/06/18 at 23:00 Diclofenac Sodium (Voltaren) 1 yudy BID TP Last administered on 09/09/18 08:31; Start 09/07/18 at 10:00 Magnesium Sulfate 50 ml @ 25 mls/hr PRN DAILY PRN IV for Mag < 1.7 on am labs Last administered on 09/07/18at 17:22; Start 09/07/18 at 13:15 Insulin Human Lispro (HumaLOG) 5 units 1X ONCE SQ Last administered on 09/07/18at 23:01; Start 09/07/18 at 22:30; Stop 09/07/18 at 22:31; Status DC Methylprednisolone Acetate (DEPO-Medrol 40MG VIAL) 40 mg 1X ONCE IM ; Start 09/09/18 at 09:15; Stop 09/09/18 at 09:16; Status DC Bupivacaine HCl (Sensorcaine-Mpf 0.25%) 10 ml 1X ONCE IJ ; Start 09/09/18 at 09:15; Stop 09/09/18 at 09:16; Status DC Active Scripts Active Lasix (Furosemide) 40 Mg Tablet 1 Tab PO BID Hydrocodone-Apap 5-325 (Hydrocodone Bit/Acetaminophen) 1 Each Tablet 1 Tab PO PRN Q4HRS PRN 7 Days Novolog Flexpen (Insulin Aspart) 100 Unit/1 Ml Insuln.pen 0 Units SQ TIDWMEALS 30 Days Reported Gabapentin (Gabapentin) 300 Mg Capsule 300 Mg PO BID Gabapentin (Gabapentin) 300 Mg Capsule 300 Mg PO BID Metoprolol Succinate ( Xl ) (Metoprolol Succinate) 25 Mg Tab.er.24h 3 Tab PO DAILY Lasix (Furosemide) 40 Mg Tablet 1 Tab PO PRN DAILY PRN Give 40 mg PO Lasix PRN if pt gains 2 lbs in 1 day or 5 lbs in 1 week; if pt also shows signs of CHF exacerbation Furosemide 40 Mg Tablet 1 Tab PO BID 2 Days Losartan Potassium 50 Mg Tablet 50 Mg PO DAILY Metolazone 2.5 Mg Tablet 2.5 Mg PO DAILY Oxybutynin Chloride 5 Mg Tablet 10 Mg PO HS Levemir Flextouch (Insulin Detemir) 100 Unit/1 Ml Insuln.pen 40 Unit SQ HS Pioglitazone Hcl 30 Mg Tablet 30 Mg PO DAILY Zoloft (Sertraline Hcl) 50 Mg Tablet 1 Tab PO DAILY Atorvastatin Calcium 40 Mg Tablet 40 Mg PO HS Aspirin Ec (Aspirin) 81 Mg Tablet.dr 81 Mg PO Amlodipine Besylate 10 Mg Tablet 10 Mg PO DAILY Donepezil Hcl 10 Mg Tablet 10 Mg PO HS Vitals/I & O Vital Sign - Last 24 Hours 09/08/18 09/08/18 09/08/1828/19 10:42 10:43 11:00 11:37 Temp 97.8 97.8 Pulse 66 66 65 Resp 16 B/P (MAP) 141/78 141/78 139/64 (89) Pulse Ox 93 O2 Delivery Nasal Cannula Nasal Cannula O2 Flow Rate 2.0 2.0 09/08/18 09/08/18 09/08/18 09/08/18 13:20 14:20 15:00 15:48 Temp 98.1 98.1 Pulse 58 Resp 20 20 16 B/P (MAP) 129/53 (78) Pulse Ox 96 O2 Delivery Nasal Cannula Nasal Cannula Nasal Cannula Nasal Cannula O2 Flow Rate 2.0 3.0 2.0 2.0 09/08/18 09/08/18 09/08/18 09/08/18 19:00 20:00 20:35 23:00 Temp 97.4 98.0 97.4 98.0 Pulse 55 57 Resp 16 16 B/P (MAP) 138/57 (84) 166/68 (100) Pulse Ox 96 96 O2 Delivery Nasal Cannula Nasal Cannula Nasal Cannula Nasal Cannula O2 Flow Rate 2.0 2.0 2.0 2.0 09/09/18 09/09/18 09/09/18 03:00 07:26 08:00 Temp 98.2 98.2 Pulse 70 Resp 16 B/P (MAP) 131/54 (79) Pulse Ox 99 98 O2 Delivery Nasal Cannula Nasal Cannula Nasal Cannula O2 Flow Rate 2.0 2.0 2.0 Intake and Output 09/08/18 09/08/18 09/09/18 14:59 22:59 06:59 Intake Total 0 ml Output Total 0 ml Balance 0 ml 0 ml TINO FARLEY MD Sep 09, 2018 10:21
[2018-09-09 11:00] VITALS: BP 127/41
[2018-09-09] MEDS: HYDROcodone/APAP 5/325MG 1 TAB TABLET PO PRN ×2 (11:47→21:13)
--- NOTE | 2018-09-09 13:55 | NUR ---
SW following for discharge planning. Discussed with RN, pt is from home with sister, Wing. SW met with pt to discuss PT/OT recommendation of SNU, pt reported she had been recently but could not remember where, pt gave SW permission to call her sisters. [facility]OTTE spoke [facility] ([phone]), [facility] reported pt had been to [place], and would like referral sent there if pt is requiring SNU. SW faxed referral to [place]. [facility]OTTE will continue to follow.
[2018-09-09 15:00] VITALS: BP 130/48
--- NOTE | 2018-09-09 16:06 | NUR ---
[facility] following. Pt's sister contacted [facility] to advise they actually want to take pt home with home health. [facility]LOTTE offered list of companies, family would like [facility]. CHARLOTTE notified Roseanne West RN to meet with pt. [facility]LOTTE will continue to follow.
[2018-09-09 19:40] VITALS: BP 142/52
[2018-09-09] MEDS: ATORVASTATIN CALCIUM 40 MG TABLET. PO SCH (21:11)
[2018-09-09] MEDS: ENOXAPARIN 40 MG/0.4 ML SYRINGE. SQ SCH (21:11)
[2018-09-09] MEDS: DONEPEZIL HCL 10 MG TABLET. PO SCH (21:11)
[2018-09-09] MEDS: OXYBUTYNIN CHLORIDE 5 MG TABLET PO SCH (21:11)
[2018-09-09] MEDS: INSULIN GLARGINE 300 UNITS/3 ML INSULN.PEN. SQ SCH (21:29)
[2018-09-09 23:00] VITALS: BP 130/49
[2018-09-10 02:58] VITALS: BP 128/63
[2018-09-10 04:26] LABS: BASO % 1 % (0-3); EOS # 0.3 x10^3/uL (0.0-0.7); EOS % 4 % (0-3); HEMATOCRIT 32.3 % (36.0-47.0); HEMOGLOBIN 10.6 g/dL (12.0-15.5); LYMPH # 1.6 x10^3/uL (1.0-4.8); LYMPH % 23 % (24-48); MEAN CORPUSCULAR HEMOGLOBIN 30 pg (25-35); MEAN CORPUSCULAR HGB CONC 33 g/dL (31-37); MEAN CORPUSCULAR VOLUME 91 fL (79-100); MONO # 0.5 x10^3/uL (0.0-1.1); MONO % 7 % (0-9); NEUT # 4.5 x10^3uL (1.8-7.7); NEUT % 65 % (31-73); PLATELET COUNT 194 x10^3/uL (140-400); RED BLOOD COUNT 3.56 x10^6/uL (3.50-5.40); RED CELL DISTRIBUTION WIDTH 13.9 % (11.5-14.5); WHITE BLOOD COUNT 6.9 x10^3/uL (4.0-11.0)
[2018-09-10 05:13] LABS: ALBUMIN 2.8 g/dL (3.4-5.0); CALCIUM 9.3 mg/dL (8.5-10.1); CREATININE 1.9 mg/dL (0.6-1.0); GFR 31.3; MAGNESIUM 2.1 mg/dL (1.8-2.4); PHOSPHORUS 3.9 mg/dL (2.6-4.7); POTASSIUM 3.9 mmol/L (3.5-5.1)
[2018-09-10 07:00] VITALS: BP 122/43
[2018-09-10] MEDS: IPRATRPIUM/ALBUTEROL 0.5/2.5MG 3 ML NEBU. NEB SCH ×4 (07:30→19:59)
[2018-09-10] MEDS: INSULIN LISPRO 300 UNITS/3 ML INSULN.PEN. SQ SCH ×3 (08:00→17:00)
[2018-09-10] MEDS: PIOGLITAZONE 15 MG TABLET. PO SCH (08:33)
[2018-09-10] MEDS: ASPIRIN ENTERIC COATED 81 MG TABLET.DR. PO SCH (08:33)
[2018-09-10] MEDS: metOLazone 2.5 MG TABLET PO SCH (08:33)
[2018-09-10] MEDS: SERTRALINE 50 MG TABLET. PO SCH (08:33)
[2018-09-10] MEDS: GABAPENTIN 300 MG CAPSULE. PO SCH ×2 (08:34→20:04)
[2018-09-10] MEDS: POTASSIUM CHLORIDE 20 MEQ TABLET.ER. PO SCH (08:34)
[2018-09-10] MEDS: DICLOFENAC SODIUM 1% TOPICAL GEL 100GM TUBE. TP SCH ×2 (08:34→20:05)
[2018-09-10] MEDS: amLODIPine BESYLATE 10 MG TABLET PO SCH (08:35)
[2018-09-10] MEDS: METOPROLOL SUCC 24HR ER 25 MG TAB.ER.24H. PO SCH (08:36)
--- NOTE | 2018-09-10 10:40 | PDOC ---
SUBJECTIVE ROS No complaints OBJECTIVE Vital Signs Vital Signs Date Time Temp Pulse Resp B/P (MAP) Pulse Ox O2 Delivery O2 Flow Rate FiO2 09/10/18 08:36 63 122/43 09/10/18 08:00 Nasal Cannula 2.0 09/10/18 07:30 98 09/10/18 07:00 98.0 16 98.0 I & 0 Intake and Output 09/10/18 06:59 Intake Total 1170 ml Balance 1170 ml Intake Oral 1170 ml # Voids 4 PHYSICAL EXAM Physical Exam General Appearance: Awake Alert Oriented x 3 In no visible Distress Eyes: VIsion Unchanged Conjunctiva Normal, somewhat exopthalmos cannot be ruled out EN: No EN Drainage Mucous Memb. moist Neck: no JVD min JVP Supple no Thyromegaly CVS: S1 S2 soft Murmur No Gallop No Rub none Edema Resp: no Rales no Rhonchi no Acc. Muscle use GI: BAS +ve NO Bruit Non Tender Non Distended : no CVA tenderness; no Suprapubic Tenderness SKIN: no Rashes Breast Exam deferred Mu.Sk: Adequate ROM no Muscle Atrophy Heme: Unable to palpate Obvious LAD no Splenomegaly NEURO: Good Strength and Tone Cranial Nerves II - XII grossly intact Psych: not Depressed no Active hallucination DIAGNOSIS/ASSESSMENT Assessment & Plan JENNA - Mild worsening of renal function form baseline at presentation Currently stable E-Lytes and acid base stable On metolazone Chronic kidney disease stage III: Presumably diabetic hypertensive nephrosclerosis This may be her new baseline She is established with me with me as an outpatient. Hypomagnesemia: Replace if low Normal today Hypokalemia as above: Replace as needed Normal Today COMMENT/RELEVANT DATA Meds Current Medications Medications (Trade) Dose Ordered Sig/Blue Start Time Stop Time Status Last Admin Dose Admin Acetaminophen/ Hydrocodone Bitart (Lortab 5/325) 1 tab PRN Q4HRS PRN 09/06/18 21:45 09/09/18 21:13 1 TAB Acetaminophen/ Hydrocodone Bitart (Lortab 7.5/325) 1 tab 1X ONCE 09/06/18 16:30 09/06/18 16:31 DC 09/06/18 16:37 1 TAB Albuterol/ Ipratropium (Duoneb) 3 ml RTQID 09/07/18 08:00 09/10/18 07:30 3 ML Amlodipine Besylate (Norvasc) 5 mg DAILY 09/10/18 09:00 09/10/18 08:35 5 MG Aspirin (Ecotrin) 81 mg DAILY 09/07/18 09:00 09/10/18 08:33 81 MG Atorvastatin Calcium (Lipitor) 40 mg HS 09/07/18 21:00 09/09/18 21:11 40 MG Bupivacaine HCl (Sensorcaine-Mpf 0.25%) 10 ml 1X ONCE 09/09/18 09:15 09/09/18 09:16 DC Dextrose (Dextrose 50%-Water Syringe) 12.5 gm PRN Q15MIN PRN 09/06/18 21:45 Diclofenac Sodium (Voltaren) 1 yudy BID 09/07/18 10:00 09/10/18 08:34 1 YUDY Donepezil HCl (Aricept) 10 mg QHS 09/06/18 22:00 09/09/18 21:11 10 MG Enoxaparin Sodium (Lovenox 40mg Syringe) 40 mg Q24H 09/06/18 22:00 09/09/18 21:11 40 MG Enoxaparin Sodium (Lovenox Per Pharmacy Prophylaxis Dosing) 1 each PRN DAILY PRN 09/06/18 21:45 Fentanyl Citrate (Fentanyl 2ml Vial) 25 mcg 1X ONCE 09/06/18 18:15 09/06/18 18:16 DC 09/06/18 18:31 25 MCG Gabapentin (Neurontin) 300 mg BID 09/06/18 23:00 09/10/18 08:34 300 MG Insulin Glargine (Lantus) 40 units QHS 09/06/18 22:00 09/09/18 21:29 40 UNITS Insulin Human Lispro (HumaLOG VIAL) 5 unit 1X ONCE 09/06/18 16:45 09/06/18 16:46 UNV Insulin Human Lispro (HumaLOG) 5 units 1X ONCE 09/07/18 22:30 09/07/18 22:31 DC 09/07/18 23:01 5 UNITS Insulin Human Regular (HumuLIN R VIAL) 5 unit 1X ONCE 09/06/18 16:45 09/06/18 16:48 DC 09/06/18 17:17 5 UNIT Magnesium Sulfate 50 ml @ 25 mls/hr PRN DAILY PRN 09/07/18 13:15 09/07/18 17:22 25 MLS/HR Methylprednisolone Acetate (DEPO-Medrol 40MG VIAL) 40 mg 1X ONCE 09/09/18 09:15 09/09/18 09:16 DC Metolazone (Zaroxolyn) 2.5 mg DAILY 09/07/18 09:00 09/10/18 08:33 2.5 MG Metoprolol Succinate (Toprol Xl) 75 mg DAILY 09/07/18 09:00 09/10/18 08:36 75 MG Morphine Sulfate (Morphine Sulfate) 2 mg PRN Q2HR PRN 09/06/18 20:00 09/07/18 19:59 DC 09/06/18 23:48 2 MG Non-Formulary Medication (Insulin Aspart (Novolog Flexpen)) TIDWMEALS 09/07/18 08:00 UNV Ondansetron HCl (Zofran Odt) 4 mg 1X ONCE 09/06/18 16:30 09/06/18 16:31 DC 09/06/18 16:37 4 MG Ondansetron HCl (Zofran) 4 mg PRN Q8HRS PRN 09/06/18 20:00 09/07/18 19:59 DC 09/07/18 13:08 4 MG Oxybutynin Chloride (Ditropan) 10 mg HS 09/06/18 22:00 09/09/18 21:11 10 MG Pioglitazone HCl (Actos) 30 mg DAILY 09/07/18 09:00 09/10/18 08:33 30 MG Potassium Chloride (Klor-Con) 20 meq DAILYWBKFT 09/07/18 08:00 09/10/18 08:34 20 MEQ Sertraline HCl (Zoloft) 50 mg DAILY 09/07/18 09:00 09/10/18 08:33 50 MG Sodium Chloride 1,000 ml @ 1,000 mls/hr 1X ONCE 09/06/18 19:00 09/06/18 19:59 DC 09/06/18 19:29 1,000 MLS/HR Lab Laboratory Tests Test 09/09/18 17:00 09/09/18 21:20 09/10/18 02:45 09/10/18 07:51 Glucose (Fingerstick) 203 mg/dL (70-99) 179 mg/dL (70-99) 107 mg/dL (70-99) White Blood Count 6.9 x10^3/uL (4.0-11.0) Red Blood Count 3.56 x10^6/uL (3.50-5.40) Hemoglobin 10.6 g/dL (12.0-15.5) Hematocrit 32.3 % (36.0-47.0) Mean Corpuscular Volume 91 fL (79-100) Mean Corpuscular Hemoglobin 30 pg (25-35) Mean Corpuscular Hemoglobin Concent 33 g/dL (31-37) Red Cell Distribution Width 13.9 % (11.5-14.5) Platelet Count 194 x10^3/uL (140-400) Neutrophils (%) (Auto) 65 % (31-73) Lymphocytes (%) (Auto) 23 % (24-48) Monocytes (%) (Auto) 7 % (0-9) Eosinophils (%) (Auto) 4 % (0-3) Basophils (%) (Auto) 1 % (0-3) Neutrophils # (Auto) 4.5 x10^3uL (1.8-7.7) Lymphocytes # (Auto) 1.6 x10^3/uL (1.0-4.8) Monocytes # (Auto) 0.5 x10^3/uL (0.0-1.1) Eosinophils # (Auto) 0.3 x10^3/uL (0.0-0.7) Basophils # (Auto) 0.0 x10^3/uL (0.0-0.2) Sodium Level 139 mmol/L (136-145) Potassium Level 3.9 mmol/L (3.5-5.1) Chloride Level 101 mmol/L (98-107) Carbon Dioxide Level 33 mmol/L (21-32) Anion Gap 5 (6-14) Blood Urea Nitrogen 44 mg/dL (7-20) Creatinine 1.9 mg/dL (0.6-1.0) Estimated GFR (Cockcroft-Gault) 31.3 Glucose Level 181 mg/dL (70-99) Calcium Level 9.3 mg/dL (8.5-10.1) Phosphorus Level 3.9 mg/dL (2.6-4.7) Magnesium Level 2.1 mg/dL (1.8-2.4) Albumin 2.8 g/dL (3.4-5.0) Results All relevant outside records, renal labs, imaging studies, telemetry/EKG's were reviewed. DIANA BERMUDEZ MD Sep 10, 2018 10:40
[2018-09-10 11:00] VITALS: BP 145/56
--- NOTE | 2018-09-10 13:09 | PDOC ---
PROGRESS NOTES Subjective Subjective No new complaints. Objective Objective Vital Signs Date Time Temp Pulse Resp B/P (MAP) Pulse Ox O2 Delivery O2 Flow Rate FiO2 09/10/18 11:19 94 Room Air 09/10/18 11:00 98.4 57 18 145/56 (85) 98.4 09/10/18 08:00 2.0 Intake and Output 09/10/18 07:00 Intake Total 1170 ml Balance 1170 ml Intake Oral 1170 ml # Voids 4 Physical Exam Physical Exam She got up and walking with roller walker with physical therapy using oxygen by nasal canula. Assessment Assessment Problems Medical Problems: (1) Coccyx pain Status: Acute (2) Hematoma of scalp Status: Acute (3) Hyperglycemia Status: Acute Plan Plan of [facility] when medically stable. Comment Review of Relevant I have reviewed the following items joel (where applicable) has been applied. Labs Laboratory Tests Test 09/08/18 16:58 09/08/18 21:27 09/09/18 06:50 09/09/18 06:55 Glucose (Fingerstick) 177 mg/dL (70-99) 198 mg/dL (70-99) White Blood Count 8.0 x10^3/uL (4.0-11.0) Red Blood Count 3.77 x10^6/uL (3.50-5.40) Hemoglobin 11.3 g/dL (12.0-15.5) Hematocrit 34.3 % (36.0-47.0) Mean Corpuscular Volume 91 fL (79-100) Mean Corpuscular Hemoglobin 30 pg (25-35) Mean Corpuscular Hemoglobin Concent 33 g/dL (31-37) Red Cell Distribution Width 13.9 % (11.5-14.5) Platelet Count 210 x10^3/uL (140-400) Neutrophils (%) (Auto) 70 % (31-73) Lymphocytes (%) (Auto) 19 % (24-48) Monocytes (%) (Auto) 7 % (0-9) Eosinophils (%) (Auto) 4 % (0-3) Basophils (%) (Auto) 0 % (0-3) Neutrophils # (Auto) 5.6 x10^3uL (1.8-7.7) Lymphocytes # (Auto) 1.5 x10^3/uL (1.0-4.8) Monocytes # (Auto) 0.6 x10^3/uL (0.0-1.1) Eosinophils # (Auto) 0.3 x10^3/uL (0.0-0.7) Basophils # (Auto) 0.0 x10^3/uL (0.0-0.2) Sodium Level 143 mmol/L (136-145) Potassium Level 3.6 mmol/L (3.5-5.1) Chloride Level 103 mmol/L (98-107) Carbon Dioxide Level 34 mmol/L (21-32) Anion Gap 6 (6-14) Blood Urea Nitrogen 38 mg/dL (7-20) Creatinine 1.8 mg/dL (0.6-1.0) Estimated GFR (Cockcroft-Gault) 33.3 Glucose Level 69 mg/dL (70-99) Calcium Level 9.7 mg/dL (8.5-10.1) Magnesium Level 2.3 mg/dL (1.8-2.4) Creatine Kinase 39 U/L (26-192) Test 09/09/18 08:14 09/09/18 10:31 09/09/18 17:00 09/09/18 21:20 Glucose (Fingerstick) 62 mg/dL (70-99) 137 mg/dL (70-99) 203 mg/dL (70-99) 179 mg/dL (70-99) Test 09/10/18 02:45 09/10/18 07:51 09/10/18 11:20 White Blood Count 6.9 x10^3/uL (4.0-11.0) Red Blood Count 3.56 x10^6/uL (3.50-5.40) Hemoglobin 10.6 g/dL (12.0-15.5) Hematocrit 32.3 % (36.0-47.0) Mean Corpuscular Volume 91 fL (79-100) Mean Corpuscular Hemoglobin 30 pg (25-35) Mean Corpuscular Hemoglobin Concent 33 g/dL (31-37) Red Cell Distribution Width 13.9 % (11.5-14.5) Platelet Count 194 x10^3/uL (140-400) Neutrophils (%) (Auto) 65 % (31-73) Lymphocytes (%) (Auto) 23 % (24-48) Monocytes (%) (Auto) 7 % (0-9) Eosinophils (%) (Auto) 4 % (0-3) Basophils (%) (Auto) 1 % (0-3) Neutrophils # (Auto) 4.5 x10^3uL (1.8-7.7) Lymphocytes # (Auto) 1.6 x10^3/uL (1.0-4.8) Monocytes # (Auto) 0.5 x10^3/uL (0.0-1.1) Eosinophils # (Auto) 0.3 x10^3/uL (0.0-0.7) Basophils # (Auto) 0.0 x10^3/uL (0.0-0.2) Sodium Level 139 mmol/L (136-145) Potassium Level 3.9 mmol/L (3.5-5.1) Chloride Level 101 mmol/L (98-107) Carbon Dioxide Level 33 mmol/L (21-32) Anion Gap 5 (6-14) Blood Urea Nitrogen 44 mg/dL (7-20) Creatinine 1.9 mg/dL (0.6-1.0) Estimated GFR (Cockcroft-Gault) 31.3 Glucose Level 181 mg/dL (70-99) Calcium Level 9.3 mg/dL (8.5-10.1) Phosphorus Level 3.9 mg/dL (2.6-4.7) Magnesium Level 2.1 mg/dL (1.8-2.4) Albumin 2.8 g/dL (3.4-5.0) Glucose (Fingerstick) 107 mg/dL (70-99) 115 mg/dL (70-99) Laboratory Tests Test 09/09/18 17:00 09/09/18 21:20 09/10/18 02:45 09/10/18 07:51 Glucose (Fingerstick) 203 mg/dL (70-99) 179 mg/dL (70-99) 107 mg/dL (70-99) White Blood Count 6.9 x10^3/uL (4.0-11.0) Red Blood Count 3.56 x10^6/uL (3.50-5.40) Hemoglobin 10.6 g/dL (12.0-15.5) Hematocrit 32.3 % (36.0-47.0) Mean Corpuscular Volume 91 fL (79-100) Mean Corpuscular Hemoglobin 30 pg (25-35) Mean Corpuscular Hemoglobin Concent 33 g/dL (31-37) Red Cell Distribution Width 13.9 % (11.5-14.5) Platelet Count 194 x10^3/uL (140-400) Neutrophils (%) (Auto) 65 % (31-73) Lymphocytes (%) (Auto) 23 % (24-48) Monocytes (%) (Auto) 7 % (0-9) Eosinophils (%) (Auto) 4 % (0-3) Basophils (%) (Auto) 1 % (0-3) Neutrophils # (Auto) 4.5 x10^3uL (1.8-7.7) Lymphocytes # (Auto) 1.6 x10^3/uL (1.0-4.8) Monocytes # (Auto) 0.5 x10^3/uL (0.0-1.1) Eosinophils # (Auto) 0.3 x10^3/uL (0.0-0.7) Basophils # (Auto) 0.0 x10^3/uL (0.0-0.2) Sodium Level 139 mmol/L (136-145) Potassium Level 3.9 mmol/L (3.5-5.1) Chloride Level 101 mmol/L (98-107) Carbon Dioxide Level 33 mmol/L (21-32) Anion Gap 5 (6-14) Blood Urea Nitrogen 44 mg/dL (7-20) Creatinine 1.9 mg/dL (0.6-1.0) Estimated GFR (Cockcroft-Gault) 31.3 Glucose Level 181 mg/dL (70-99) Calcium Level 9.3 mg/dL (8.5-10.1) Phosphorus Level 3.9 mg/dL (2.6-4.7) Magnesium Level 2.1 mg/dL (1.8-2.4) Albumin 2.8 g/dL (3.4-5.0) Test 09/10/18 11:20 Glucose (Fingerstick) 115 mg/dL (70-99) Medications Current Medications Ondansetron HCl (Zofran Odt) 4 mg 1X ONCE PO Last administered on 09/06/18at 16:37; Start 09/06/18 at 16:30; Stop 09/06/18 at 16:31; Status DC Acetaminophen/ Hydrocodone Bitart (Lortab 7.5/325) 1 tab 1X ONCE PO Last administered on 09/06/18at 16:37; Start 09/06/18 at 16:30; Stop 09/06/18 at 16:31; Status DC Insulin Human Lispro (HumaLOG VIAL) 5 unit 1X ONCE SQ ; Start 09/06/18 at 16:45; Stop 09/06/18 at 16:46; Status UNV Insulin Human Regular (HumuLIN R VIAL) 5 unit 1X ONCE IV ; Start 09/06/18 at 16:45; Stop 09/06/18 at 16:46; Status DC Insulin Human Regular (HumuLIN R VIAL) 5 unit 1X ONCE SQ Last administered on 09/06/18at 17:17; Start 09/06/18 at 16:45; Stop 09/06/18 at 16:48; Status DC Fentanyl Citrate (Fentanyl 2ml Vial) 25 mcg 1X ONCE IM Last administered on 09/06/18at 18:31; Start 09/06/18 at 18:15; Stop 09/06/18 at 18:16; Status DC Sodium Chloride 1,000 ml @ 1,000 mls/hr 1X ONCE IV Last administered on 09/06/18at 19:29; Start 09/06/18 at 19:00; Stop 09/06/18 at 19:59; Status DC Ondansetron HCl (Zofran) 4 mg PRN Q8HRS PRN IV NAUSEA/VOMITING Last administered on 09/07/18at 13:08; Start 09/06/18 at 20:00; Stop 09/07/18 at 19:59; Status DC Morphine Sulfate (Morphine Sulfate) 2 mg PRN Q2HR PRN IV PAIN Last administered on 09/06/18at 23:48; Start 09/06/18 at 20:00; Stop 09/07/18 at 19:59; Status DC Potassium Chloride (Klor-Con) 20 meq 1X ONCE PO Last administered on 09/06/18at 20:42; Start 09/06/18 at 20:45; Stop 09/06/18 at 20:46; Status DC Insulin Human Lispro (HumaLOG) 0-5 UNITS TIDWMEALS SQ ; Start 09/07/18 at 08:00; Stop 09/07/18 at 08:00; Status DC Dextrose (Dextrose 50%-Water Syringe) 12.5 gm PRN Q15MIN PRN IV SEE COMMENTS; Start 09/06/18 at 20:45; Status Cancel Acetaminophen/ Hydrocodone Bitart (Lortab 5/325) 1 tab PRN Q4HRS PRN PO PAIN Last administered on 09/09/18 21:13; Start 09/06/18 at 21:45 Potassium Chloride (Klor-Con) 40 meq 1X ONCE PO Last administered on 09/06/18 22:40; Start 09/06/18 at 22:00; Stop 09/06/18 at 22:01; Status DC Potassium Chloride (Klor-Con) 20 meq DAILYWBKFT PO Last administered on 09/10/18 08:34; Start 09/07/18 at 08:00 Amlodipine Besylate (Norvasc) 10 mg DAILY PO Last administered on 09/08/18at 10:43; Start 09/07/18 at 09:00; Stop 09/09/18 at 15:32; Status DC Aspirin (Ecotrin) 81 mg DAILY PO Last administered on 09/10/18 08:33; Start 09/07/18 at 09:00 Atorvastatin Calcium (Lipitor) 40 mg HS PO Last administered on 09/09/18 21:11; Start 09/07/18 at 21:00 Gabapentin (Neurontin) 100 mg BID PO ; Start 09/06/18 at 22:00; Status Cancel Metoprolol Succinate (Toprol Xl) 1,875 mg DAILY PO ; Start 09/07/18 at 09:00; Status UNV Oxybutynin Chloride (Ditropan) 10 mg HS PO Last administered on 09/09/18 21:11; Start 09/06/18 at 22:00 Sertraline HCl (Zoloft) 50 mg DAILY PO Last administered on 09/10/18 08:33; Start 09/07/18 at 09:00 Donepezil HCl (Aricept) 10 mg QHS PO Last administered on 09/09/18 21:11; Start 09/06/18 at 22:00 Non-Formulary Medication (Insulin Aspart (Novolog Flexpen)) TIDWMEALS SQ ; Start 09/07/18 at 08:00; Status UNV Insulin Glargine (Lantus) 40 units QHS SQ Last administered on 09/09/18 21:29; Start 09/06/18 at 22:00 Metolazone (Zaroxolyn) 2.5 mg DAILY PO Last administered on 09/10/18 08:33; Start 09/07/18 at 09:00 Pioglitazone HCl (Actos) 30 mg DAILY PO Last administered on 09/10/18 08:33; Start 09/07/18 at 09:00 Insulin Human Lispro (HumaLOG) 0-9 UNITS TIDWMEALS SQ Last administered on 09/09/18 17:29; Start 09/07/18 at 08:00 Dextrose (Dextrose 50%-Water Syringe) 12.5 gm PRN Q15MIN PRN IV SEE COMMENTS; Start 09/06/18 at 21:45 Albuterol/ Ipratropium (Duoneb) 3 ml RTQID NEB Last administered on 09/10/18 11:19; Start 09/07/18 at 08:00 Enoxaparin Sodium (Lovenox Per Pharmacy Prophylaxis Dosing) 1 each PRN DAILY PRN MC SEE COMMENTS; Start 09/06/18 at 21:45 Magnesium Sulfate 50 ml @ 25 mls/hr 1X ONCE IV Last administered on 09/06/18 22:51; Start 09/06/18 at 23:00; Stop 09/07/18 at 00:59; Status DC Enoxaparin Sodium (Lovenox 40mg Syringe) 40 mg Q24H SQ Last administered on 09/09/18 21:11; Start 09/06/18 at 22:00 Metoprolol Succinate (Toprol Xl) 75 mg DAILY PO Last administered on 09/10/18 08:36; Start 09/07/18 at 09:00 Gabapentin (Neurontin) 300 mg BID PO Last administered on 09/10/18 08:34; Start 09/06/18 at 23:00 Diclofenac Sodium (Voltaren) 1 yudy BID TP Last administered on 09/10/18 08:34; Start 09/07/18 at 10:00 Magnesium Sulfate 50 ml @ 25 mls/hr PRN DAILY PRN IV for Mag < 1.7 on am labs Last administered on 4/27/19at 17:22; Start 09/07/18 at 13:15 Insulin Human Lispro (HumaLOG) 5 units 1X ONCE SQ Last administered on 09/07/18at 23:01; Start 09/07/18 at 22:30; Stop 09/07/18 at 22:31; Status DC Methylprednisolone Acetate (DEPO-Medrol 40MG VIAL) 40 mg 1X ONCE IM ; Start 09/09/18 at 09:15; Stop 09/09/18 at 09:16; Status DC Bupivacaine HCl (Sensorcaine-Mpf 0.25%) 10 ml 1X ONCE IJ ; Start 09/09/18 at 09:15; Stop 09/09/18 at 09:16; Status DC Amlodipine Besylate (Norvasc) 5 mg DAILY PO Last administered on 09/10/18at 08:35; Start 09/10/18 at 09:00 Active Scripts Active Lasix (Furosemide) 40 Mg Tablet 1 Tab PO BID Hydrocodone-Apap 5-325 (Hydrocodone Bit/Acetaminophen) 1 Each Tablet 1 Tab PO PRN Q4HRS PRN 7 Days Novolog Flexpen (Insulin Aspart) 100 Unit/1 Ml Insuln.pen 0 Units SQ TIDWMEALS 30 Days Reported Gabapentin (Gabapentin) 300 Mg Capsule 300 Mg PO BID Gabapentin (Gabapentin) 300 Mg Capsule 300 Mg PO BID Metoprolol Succinate ( Xl ) (Metoprolol Succinate) 25 Mg Tab.er.24h 3 Tab PO DAILY Lasix (Furosemide) 40 Mg Tablet 1 Tab PO PRN DAILY PRN Give 40 mg PO Lasix PRN if pt gains 2 lbs in 1 day or 5 lbs in 1 week; if pt also shows signs of CHF exacerbation Furosemide 40 Mg Tablet 1 Tab PO BID 2 Days Losartan Potassium 50 Mg Tablet 50 Mg PO DAILY Metolazone 2.5 Mg Tablet 2.5 Mg PO DAILY Oxybutynin Chloride 5 Mg Tablet 10 Mg PO HS Levemir Flextouch (Insulin Detemir) 100 Unit/1 Ml Insuln.pen 40 Unit SQ HS Pioglitazone Hcl 30 Mg Tablet 30 Mg PO DAILY Zoloft (Sertraline Hcl) 50 Mg Tablet 1 Tab PO DAILY Atorvastatin Calcium 40 Mg Tablet 40 Mg PO HS Aspirin Ec (Aspirin) 81 Mg Tablet.dr 81 Mg PO Amlodipine Besylate 10 Mg Tablet 10 Mg PO DAILY Donepezil Hcl 10 Mg Tablet 10 Mg PO HS Vitals/I & O Vital Sign - Last 24 Hours 09/09/18 09/09/18 09/09/18 09/09/18 15:00 15:44 19:40 20:00 Temp 98.3 98.0 98.3 98.0 Pulse 54 53 Resp 20 18 B/P (MAP) 130/48 (75) 142/52 (82) Pulse Ox 100 100 O2 Delivery Nasal Cannula Nasal Cannula Nasal Cannula Nasal Cannula O2 Flow Rate 2.0 2.0 2.0 2.0 09/09/18 09/09/18 09/09/18 09/09/18 20:35 21:13 22:13 23:00 Temp 97.9 97.9 Pulse 65 Resp 18 18 16 B/P (MAP) 130/49 (76) Pulse Ox 100 100 100 O2 Delivery Nasal Cannula Nasal Cannula Nasal Cannula Nasal Cannula O2 Flow Rate 2.0 2.0 2.0 2.0 09/10/18 09/10/18 09/10/18 09/10/18 02:58 07:00 07:30 08:00 Temp 98.3 98.0 98.3 98.0 Pulse 81 63 Resp 16 16 B/P (MAP) 128/63 (84) 122/43 (69) Pulse Ox 99 96 98 O2 Delivery Nasal Cannula Nasal Cannula Nasal Cannula Nasal Cannula O2 Flow Rate 2.0 2.0 2.0 2.0 09/10/18 09/10/18 09/10/18 09/10/18 08:35 08:36 11:00 11:19 Temp 98.4 98.4 Pulse 63 63 57 Resp 18 B/P (MAP) 122/63 122/43 145/56 (85) Pulse Ox 97 94 O2 Delivery Room Air Room Air Intake and Output 09/09/18 09/09/18 09/10/18 15:00 23:00 07:00 Intake Total 810 ml 360 ml Balance 810 ml 360 ml REBA ABEL MD Sep 10, 2018 13:09
--- NOTE | 2018-09-10 13:18 | PDOC ---
PROGRESS NOTES Chief Complaint Chief Complaint Head trauma, subgaleal hematoma CKD STAGE 3 History of Present Illness History of Present Illness Patient was seen and examined Patient was sitting up in a chair today. She states she still has some head tenderness. No intracranial hemorrhage. Large subgaleal hematoma at the vertex. No acute fracture or malalignment. hypertensive urgency.improving Diabetes. Obesity.morbid Obstructive sleep apnea. 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 Peripheral vascular disease. Vitals Vitals Vital Signs Date Time Temp Pulse Resp B/P (MAP) Pulse Ox O2 Delivery O2 Flow Rate FiO2 09/10/18 11:19 94 Room Air 09/10/18 11:00 98.4 57 18 145/56 (85) 98.4 09/10/18 08:00 2.0 Physical Exam General: Alert, Oriented X3, Cooperative, No acute distress, mild distress Heart: Regular rate, Normal S1 Lungs: Clear (No wheezes, rales, or rhonchi) Abdomen: Normal bowel sounds, Soft Extremities: No cyanosis, No edema Skin: No rashes, No breakdown, No significant lesion Labs LABS Laboratory Tests Test 09/09/18 17:00 09/09/18 21:20 09/10/18 02:45 09/10/18 07:51 Glucose (Fingerstick) 203 mg/dL (70-99) 179 mg/dL (70-99) 107 mg/dL (70-99) White Blood Count 6.9 x10^3/uL (4.0-11.0) Red Blood Count 3.56 x10^6/uL (3.50-5.40) Hemoglobin 10.6 g/dL (12.0-15.5) Hematocrit 32.3 % (36.0-47.0) Mean Corpuscular Volume 91 fL (79-100) Mean Corpuscular Hemoglobin 30 pg (25-35) Mean Corpuscular Hemoglobin Concent 33 g/dL (31-37) Red Cell Distribution Width 13.9 % (11.5-14.5) Platelet Count 194 x10^3/uL (140-400) Neutrophils (%) (Auto) 65 % (31-73) Lymphocytes (%) (Auto) 23 % (24-48) Monocytes (%) (Auto) 7 % (0-9) Eosinophils (%) (Auto) 4 % (0-3) Basophils (%) (Auto) 1 % (0-3) Neutrophils # (Auto) 4.5 x10^3uL (1.8-7.7) Lymphocytes # (Auto) 1.6 x10^3/uL (1.0-4.8) Monocytes # (Auto) 0.5 x10^3/uL (0.0-1.1) Eosinophils # (Auto) 0.3 x10^3/uL (0.0-0.7) Basophils # (Auto) 0.0 x10^3/uL (0.0-0.2) Sodium Level 139 mmol/L (136-145) Potassium Level 3.9 mmol/L (3.5-5.1) Chloride Level 101 mmol/L (98-107) Carbon Dioxide Level 33 mmol/L (21-32) Anion Gap 5 (6-14) Blood Urea Nitrogen 44 mg/dL (7-20) Creatinine 1.9 mg/dL (0.6-1.0) Estimated GFR (Cockcroft-Gault) 31.3 Glucose Level 181 mg/dL (70-99) Calcium Level 9.3 mg/dL (8.5-10.1) Phosphorus Level 3.9 mg/dL (2.6-4.7) Magnesium Level 2.1 mg/dL (1.8-2.4) Albumin 2.8 g/dL (3.4-5.0) Test 09/10/18 11:20 Glucose (Fingerstick) 115 mg/dL (70-99) Assessment and Plan Assessmemt and Plan Problems Medical Problems: (1) Coccyx pain Status: Acute (2) Hematoma of scalp Status: Acute (3) Hyperglycemia Status: Acute Comment Review of Relevant I have reviewed the following items joel (where applicable) has been applied. Labs Laboratory Tests Test 09/08/18 16:58 09/08/18 21:27 09/09/18 06:50 09/09/18 06:55 Glucose (Fingerstick) 177 mg/dL (70-99) 198 mg/dL (70-99) White Blood Count 8.0 x10^3/uL (4.0-11.0) Red Blood Count 3.77 x10^6/uL (3.50-5.40) Hemoglobin 11.3 g/dL (12.0-15.5) Hematocrit 34.3 % (36.0-47.0) Mean Corpuscular Volume 91 fL (79-100) Mean Corpuscular Hemoglobin 30 pg (25-35) Mean Corpuscular Hemoglobin Concent 33 g/dL (31-37) Red Cell Distribution Width 13.9 % (11.5-14.5) Platelet Count 210 x10^3/uL (140-400) Neutrophils (%) (Auto) 70 % (31-73) Lymphocytes (%) (Auto) 19 % (24-48) Monocytes (%) (Auto) 7 % (0-9) Eosinophils (%) (Auto) 4 % (0-3) Basophils (%) (Auto) 0 % (0-3) Neutrophils # (Auto) 5.6 x10^3uL (1.8-7.7) Lymphocytes # (Auto) 1.5 x10^3/uL (1.0-4.8) Monocytes # (Auto) 0.6 x10^3/uL (0.0-1.1) Eosinophils # (Auto) 0.3 x10^3/uL (0.0-0.7) Basophils # (Auto) 0.0 x10^3/uL (0.0-0.2) Sodium Level 143 mmol/L (136-145) Potassium Level 3.6 mmol/L (3.5-5.1) Chloride Level 103 mmol/L (98-107) Carbon Dioxide Level 34 mmol/L (21-32) Anion Gap 6 (6-14) Blood Urea Nitrogen 38 mg/dL (7-20) Creatinine 1.8 mg/dL (0.6-1.0) Estimated GFR (Cockcroft-Gault) 33.3 Glucose Level 69 mg/dL (70-99) Calcium Level 9.7 mg/dL (8.5-10.1) Magnesium Level 2.3 mg/dL (1.8-2.4) Creatine Kinase 39 U/L (26-192) Test 09/09/18 08:14 09/09/18 10:31 09/09/18 17:00 09/09/18 21:20 Glucose (Fingerstick) 62 mg/dL (70-99) 137 mg/dL (70-99) 203 mg/dL (70-99) 179 mg/dL (70-99) Test 09/10/18 02:45 09/10/18 07:51 09/10/18 11:20 White Blood Count 6.9 x10^3/uL (4.0-11.0) Red Blood Count 3.56 x10^6/uL (3.50-5.40) Hemoglobin 10.6 g/dL (12.0-15.5) Hematocrit 32.3 % (36.0-47.0) Mean Corpuscular Volume 91 fL (79-100) Mean Corpuscular Hemoglobin 30 pg (25-35) Mean Corpuscular Hemoglobin Concent 33 g/dL (31-37) Red Cell Distribution Width 13.9 % (11.5-14.5) Platelet Count 194 x10^3/uL (140-400) Neutrophils (%) (Auto) 65 % (31-73) Lymphocytes (%) (Auto) 23 % (24-48) Monocytes (%) (Auto) 7 % (0-9) Eosinophils (%) (Auto) 4 % (0-3) Basophils (%) (Auto) 1 % (0-3) Neutrophils # (Auto) 4.5 x10^3uL (1.8-7.7) Lymphocytes # (Auto) 1.6 x10^3/uL (1.0-4.8) Monocytes # (Auto) 0.5 x10^3/uL (0.0-1.1) Eosinophils # (Auto) 0.3 x10^3/uL (0.0-0.7) Basophils # (Auto) 0.0 x10^3/uL (0.0-0.2) Sodium Level 139 mmol/L (136-145) Potassium Level 3.9 mmol/L (3.5-5.1) Chloride Level 101 mmol/L (98-107) Carbon Dioxide Level 33 mmol/L (21-32) Anion Gap 5 (6-14) Blood Urea Nitrogen 44 mg/dL (7-20) Creatinine 1.9 mg/dL (0.6-1.0) Estimated GFR (Cockcroft-Gault) 31.3 Glucose Level 181 mg/dL (70-99) Calcium Level 9.3 mg/dL (8.5-10.1) Phosphorus Level 3.9 mg/dL (2.6-4.7) Magnesium Level 2.1 mg/dL (1.8-2.4) Albumin 2.8 g/dL (3.4-5.0) Glucose (Fingerstick) 107 mg/dL (70-99) 115 mg/dL (70-99) Laboratory Tests Test 09/09/18 17:00 09/09/18 21:20 09/10/18 02:45 09/10/18 07:51 Glucose (Fingerstick) 203 mg/dL (70-99) 179 mg/dL (70-99) 107 mg/dL (70-99) White Blood Count 6.9 x10^3/uL (4.0-11.0) Red Blood Count 3.56 x10^6/uL (3.50-5.40) Hemoglobin 10.6 g/dL (12.0-15.5) Hematocrit 32.3 % (36.0-47.0) Mean Corpuscular Volume 91 fL (79-100) Mean Corpuscular Hemoglobin 30 pg (25-35) Mean Corpuscular Hemoglobin Concent 33 g/dL (31-37) Red Cell Distribution Width 13.9 % (11.5-14.5) Platelet Count 194 x10^3/uL (140-400) Neutrophils (%) (Auto) 65 % (31-73) Lymphocytes (%) (Auto) 23 % (24-48) Monocytes (%) (Auto) 7 % (0-9) Eosinophils (%) (Auto) 4 % (0-3) Basophils (%) (Auto) 1 % (0-3) Neutrophils # (Auto) 4.5 x10^3uL (1.8-7.7) Lymphocytes # (Auto) 1.6 x10^3/uL (1.0-4.8) Monocytes # (Auto) 0.5 x10^3/uL (0.0-1.1) Eosinophils # (Auto) 0.3 x10^3/uL (0.0-0.7) Basophils # (Auto) 0.0 x10^3/uL (0.0-0.2) Sodium Level 139 mmol/L (136-145) Potassium Level 3.9 mmol/L (3.5-5.1) Chloride Level 101 mmol/L (98-107) Carbon Dioxide Level 33 mmol/L (21-32) Anion Gap 5 (6-14) Blood Urea Nitrogen 44 mg/dL (7-20) Creatinine 1.9 mg/dL (0.6-1.0) Estimated GFR (Cockcroft-Gault) 31.3 Glucose Level 181 mg/dL (70-99) Calcium Level 9.3 mg/dL (8.5-10.1) Phosphorus Level 3.9 mg/dL (2.6-4.7) Magnesium Level 2.1 mg/dL (1.8-2.4) Albumin 2.8 g/dL (3.4-5.0) Test 09/10/18 11:20 Glucose (Fingerstick) 115 mg/dL (70-99) Medications Current Medications Ondansetron HCl (Zofran Odt) 4 mg 1X ONCE PO Last administered on 09/06/18at 16:37; Start 09/06/18 at 16:30; Stop 09/06/18 at 16:31; Status DC Acetaminophen/ Hydrocodone Bitart (Lortab 7.5/325) 1 tab 1X ONCE PO Last ad ministered on 09/06/18at 16:37; Start 09/06/18 at 16:30; Stop 09/06/18 at 16:31; Status DC Insulin Human Lispro (HumaLOG VIAL) 5 unit 1X ONCE SQ ; Start 09/06/18 at 16:45; Stop 09/06/18 at 16:46; Status UNV Insulin Human Regular (HumuLIN R VIAL) 5 unit 1X ONCE IV ; Start 09/06/18 at 16:45; Stop 09/06/18 at 16:46; Status DC Insulin Human Regular (HumuLIN R VIAL) 5 unit 1X ONCE SQ Last administered on 09/06/18at 17:17; Start 09/06/18 at 16:45; Stop 09/06/18 at 16:48; Status DC Fentanyl Citrate (Fentanyl 2ml Vial) 25 mcg 1X ONCE IM Last administered on 09/06/18at 18:31; Start 09/06/18 at 18:15; Stop 09/06/18 at 18:16; Status DC Sodium Chloride 1,000 ml @ 1,000 mls/hr 1X ONCE IV Last administered on 09/06/18at 19:29; Start 09/06/18 at 19:00; Stop 09/06/18 at 19:59; Status DC Ondansetron HCl (Zofran) 4 mg PRN Q8HRS PRN IV NAUSEA/VOMITING Last administered on 09/07/18 13:08; Start 09/06/18 at 20:00; Stop 09/07/18 at 19:59; Status DC Morphine Sulfate (Morphine Sulfate) 2 mg PRN Q2HR PRN IV PAIN Last administered on 09/06/18 23:48; Start 09/06/18 at 20:00; Stop 09/07/18 at 19:59; Status DC Potassium Chloride (Klor-Con) 20 meq 1X ONCE PO Last administered on 09/06/18 20:42; Start 09/06/18 at 20:45; Stop 09/06/18 at 20:46; Status DC Insulin Human Lispro (HumaLOG) 0-5 UNITS TIDWMEALS SQ ; Start 09/07/18 at 08:00; Stop 09/07/18 at 08:00; Status DC Dextrose (Dextrose 50%-Water Syringe) 12.5 gm PRN Q15MIN PRN IV SEE COMMENTS; Start 09/06/18 at 20:45; Status Cancel Acetaminophen/ Hydrocodone Bitart (Lortab 5/325) 1 tab PRN Q4HRS PRN PO PAIN Last administered on 09/09/18 21:13; Start 09/06/18 at 21:45 Potassium Chloride (Klor-Con) 40 meq 1X ONCE PO Last administered on 09/06/18 22:40; Start 09/06/18 at 22:00; Stop 09/06/18 at 22:01; Status DC Potassium Chloride (Klor-Con) 20 meq DAILYWBKFT PO Last administered on 09/10/18 08:34; Start 09/07/18 at 08:00 Amlodipine Besylate (Norvasc) 10 mg DAILY PO Last administered on 09/08/18 10:43; Start 09/07/18 at 09:00; Stop 09/09/18 at 15:32; Status DC Aspirin (Ecotrin) 81 mg DAILY PO Last administered on 09/10/18 08:33; Start 09/07/18 at 09:00 Atorvastatin Calcium (Lipitor) 40 mg HS PO Last administered on 09/09/18 21:11; Start 09/07/18 at 21:00 Gabapentin (Neurontin) 100 mg BID PO ; Start 09/06/18 at 22:00; Status Cancel Metoprolol Succinate (Toprol Xl) 1,875 mg DAILY PO ; Start 09/07/18 at 09:00; Status UNV Oxybutynin Chloride (Ditropan) 10 mg HS PO Last administered on 09/09/18 21:11; Start 09/06/18 at 22:00 Sertraline HCl (Zoloft) 50 mg DAILY PO Last administered on 09/10/18 08:33; Start 09/07/18 at 09:00 Donepezil HCl (Aricept) 10 mg QHS PO Last administered on 09/09/18 21:11; Start 09/06/18 at 22:00 Non-Formulary Medication (Insulin Aspart (Novolog Flexpen)) TIDWMEALS SQ ; Start 09/07/18 at 08:00; Status UNV Insulin Glargine (Lantus) 40 units QHS SQ Last administered on 09/09/18 21:29; Start 09/06/18 at 22:00 Metolazone (Zaroxolyn) 2.5 mg DAILY PO Last administered on 09/10/18 08:33; Start 09/07/18 at 09:00 Pioglitazone HCl (Actos) 30 mg DAILY PO Last administered on 09/10/18 08:33; Start 09/07/18 at 09:00 Insulin Human Lispro (HumaLOG) 0-9 UNITS TIDWMEALS SQ Last administered on 09/09/18 17:29; Start 09/07/18 at 08:00 Dextrose (Dextrose 50%-Water Syringe) 12.5 gm PRN Q15MIN PRN IV SEE COMMENTS; Start 09/06/18 at 21:45 Albuterol/ Ipratropium (Duoneb) 3 ml RTQID NEB Last administered on 09/10/18 11:19; Start 09/07/18 at 08:00 Enoxaparin Sodium (Lovenox Per Pharmacy Prophylaxis Dosing) 1 each PRN DAILY PRN MC SEE COMMENTS; Start 09/06/18 at 21:45 Magnesium Sulfate 50 ml @ 25 mls/hr 1X ONCE IV Last administered on 4/26/19at 22:51; Start 09/06/18 at 23:00; Stop 09/07/18 at 00:59; Status DC Enoxaparin Sodium (Lovenox 40mg Syringe) 40 mg Q24H SQ Last administered on 09/09/18at 21:11; Start 09/06/18 at 22:00 Metoprolol Succinate (Toprol Xl) 75 mg DAILY PO Last administered on 09/10/18 08:36; Start 09/07/18 at 09:00 Gabapentin (Neurontin) 300 mg BID PO Last administered on 09/10/18 08:34; Start 09/06/18 at 23:00 Diclofenac Sodium (Voltaren) 1 yudy BID TP Last administered on 09/10/18 08:34; Start 09/07/18 at 10:00 Magnesium Sulfate 50 ml @ 25 mls/hr PRN DAILY PRN IV for Mag < 1.7 on am labs Last administered on 09/07/18at 17:22; Start 09/07/18 at 13:15 Insulin Human Lispro (HumaLOG) 5 units 1X ONCE SQ Last administered on 09/07/18at 23:01; Start 09/07/18 at 22:30; Stop 09/07/18 at 22:31; Status DC Methylprednisolone Acetate (DEPO-Medrol 40MG VIAL) 40 mg 1X ONCE IM ; Start 09/09/18 at 09:15; Stop 09/09/18 at 09:16; Status DC Bupivacaine HCl (Sensorcaine-Mpf 0.25%) 10 ml 1X ONCE IJ ; Start 09/09/18 at 09:15; Stop 09/09/18 at 09:16; Status DC Amlodipine Besylate (Norvasc) 5 mg DAILY PO Last administered on 09/10/18at 08:35; Start 09/10/18 at 09:00 Active Scripts Active Lasix (Furosemide) 40 Mg Tablet 1 Tab PO BID Hydrocodone-Apap 5-325 (Hydrocodone Bit/Acetaminophen) 1 Each Tablet 1 Tab PO PRN Q4HRS PRN 7 Days Novolog Flexpen (Insulin Aspart) 100 Unit/1 Ml Insuln.pen 0 Units SQ TIDWMEALS 30 Days Reported Gabapentin (Gabapentin) 300 Mg Capsule 300 Mg PO BID Gabapentin (Gabapentin) 300 Mg Capsule 300 Mg PO BID Metoprolol Succinate ( Xl ) (Metoprolol Succinate) 25 Mg Tab.er.24h 3 Tab PO DAILY Lasix (Furosemide) 40 Mg Tablet 1 Tab PO PRN DAILY PRN Give 40 mg PO Lasix PRN if pt gains 2 lbs in 1 day or 5 lbs in 1 week; if pt also shows signs of CHF exacerbation Furosemide 40 Mg Tablet 1 Tab PO BID 2 Days Losartan Potassium 50 Mg Tablet 50 Mg PO DAILY Metolazone 2.5 Mg Tablet 2.5 Mg PO DAILY Oxybutynin Chloride 5 Mg Tablet 10 Mg PO HS Levemir Flextouch (Insulin Detemir) 100 Unit/1 Ml Insuln.pen 40 Unit SQ HS Pioglitazone Hcl 30 Mg Tablet 30 Mg PO DAILY Zoloft (Sertraline Hcl) 50 Mg Tablet 1 Tab PO DAILY Atorvastatin Calcium 40 Mg Tablet 40 Mg PO HS Aspirin Ec (Aspirin) 81 Mg Tablet.dr 81 Mg PO Amlodipine Besylate 10 Mg Tablet 10 Mg PO DAILY Donepezil Hcl 10 Mg Tablet 10 Mg PO HS Vitals/I & O Vital Sign - Last 24 Hours 09/09/18 09/09/18 09/09/18 09/09/18 15:00 15:44 19:40 20:00 Temp 98.3 98.0 98.3 98.0 Pulse 54 53 Resp 20 18 B/P (MAP) 130/48 (75) 142/52 (82) Pulse Ox 100 100 O2 Delivery Nasal Cannula Nasal Cannula Nasal Cannula Nasal Cannula O2 Flow Rate 2.0 2.0 2.0 2.0 09/09/18 09/09/18 09/09/18 09/09/18 20:35 21:13 22:13 23:00 Temp 97.9 97.9 Pulse 65 Resp 18 18 16 B/P (MAP) 130/49 (76) Pulse Ox 100 100 100 O2 Delivery Nasal Cannula Nasal Cannula Nasal Cannula Nasal Cannula O2 Flow Rate 2.0 2.0 2.0 2.0 09/10/18 09/10/18 09/10/18 09/10/18 02:58 07:00 07:30 08:00 Temp 98.3 98.0 98.3 98.0 Pulse 81 63 Resp 16 16 B/P (MAP) 128/63 (84) 122/43 (69) Pulse Ox 99 96 98 O2 Delivery Nasal Cannula Nasal Cannula Nasal Cannula Nasal Cannula O2 Flow Rate 2.0 2.0 2.0 2.0 09/10/18 09/10/18 09/10/18 09/10/18 08:35 08:36 11:00 11:19 Temp 98.4 98.4 Pulse 63 63 57 Resp 18 B/P (MAP) 122/63 122/43 145/56 (85) Pulse Ox 97 94 O2 Delivery Room Air Room Air Intake and Output 09/09/18 09/09/18 09/10/18 15:00 23:00 07:00 Intake Total 810 ml 360 ml Balance 810 ml 360 ml TINO FARLEY MD Sep 10, 2018 13:18
--- NOTE | 2018-09-10 13:58 | PDOC3 ---
Discharge Summary Date of Admission: Sep 06, 2018 Date of Discharge: Sep 10, 2018 Follow-Up: 3-5 days Admitting Diagnosis comment: DISCHARGE DX Chief Complaint Head trauma, subgaleal hematoma CKD STAGE 3 ACUTE RENAL INJURY, VASOMOTOR History of Present Illness History of Present Illness Patient was seen and examined Patient was sitting up in a chair today. She states she still has some MINIMAL head tenderness. No intracranial hemorrhage. Large subgaleal hematoma at the vertex. No acute fracture or malalignment. hypertensive urgency.improving Diabetes. Obesity.morbid Obstructive sleep apnea. 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 Peripheral vascular disease. Vitals Vitals Vital Signs Date Time Temp Pulse Resp B/P (MAP) Pulse Ox O2 Delivery O2 Flow Rate FiO2 09/10/18 11:19 94 Room Air 09/10/18 11:00 98.4 57 18 145/56 (85) 98.4 09/10/18 08:00 2.0 Physical Exam General: Alert, Oriented X3, Cooperative, No acute distress Heart: Regular rate, Normal S1 Lungs: Clear (No wheezes, rales, or rhonchi) Abdomen: Normal bowel sounds, Soft Extremities: No cyanosis, No edema Skin: No rashes, No breakdown, No significant lesion FINAL DIAGNOSIS Problems Medical Problems: (1) Coccyx pain Status: Acute (2) Hematoma of scalp Status: Acute (3) Hyperglycemia Status: Acute Brief Hospital Course Ms. Rdz is a 73 old [sex] who presented with [ FALL, SCALP HEMATOMA, JENNA] CONDITION AT DISCHARGE: Improved Discharge Medications Current Medications Ondansetron HCl (Zofran Odt) 4 mg 1X ONCE PO Last administered on 09/06/18at 16:37; Start 09/06/18 at 16:30; Stop 09/06/18 at 16:31; Status DC Acetaminophen/ Hydrocodone Bitart (Lortab 7.5/325) 1 tab 1X ONCE PO Last administered on 09/06/18at 16:37; Start 09/06/18 at 16:30; Stop 09/06/18 at 16:31; Status DC Insulin Human Lispro (HumaLOG VIAL) 5 unit 1X ONCE SQ ; Start 09/06/18 at 16:45; Stop 09/06/18 at 16:46; Status UNV Insulin Human Regular (HumuLIN R VIAL) 5 unit 1X ONCE IV ; Start 09/06/18 at 16:45; Stop 09/06/18 at 16:46; Status DC Insulin Human Regular (HumuLIN R VIAL) 5 unit 1X ONCE SQ Last administered on 09/06/18 17:17; Start 09/06/18 at 16:45; Stop 09/06/18 at 16:48; Status DC Fentanyl Citrate (Fentanyl 2ml Vial) 25 mcg 1X ONCE IM Last administered on 09/06/18at 18:31; Start 09/06/18 at 18:15; Stop 09/06/18 at 18:16; Status DC Sodium Chloride 1,000 ml @ 1,000 mls/hr 1X ONCE IV Last administered on 09/06at 19:29; Start 09/06/18 at 19:00; Stop 09/06/18 at 19:59; Status DC Ondansetron HCl (Zofran) 4 mg PRN Q8HRS PRN IV NAUSEA/VOMITING Last administered on 09/07/18 13:08; Start 09/06/18 at 20:00; Stop 09/07/18 at 19:59; Status DC Morphine Sulfate (Morphine Sulfate) 2 mg PRN Q2HR PRN IV PAIN Last administered on 09/06/18 23:48; Start 09/06/18 at 20:00; Stop 09/07/18 at 19:59; Status DC Potassium Chloride (Klor-Con) 20 meq 1X ONCE PO Last administered on 09/06/18at 20:42; Start 09/06/18 at 20:45; Stop 09/06/18 at 20:46; Status DC Insulin Human Lispro (HumaLOG) 0-5 UNITS TIDWMEALS SQ ; Start 09/07/18 at 08:00; Stop 09/07/18 at 08:00; Status DC Dextrose (Dextrose 50%-Water Syringe) 12.5 gm PRN Q15MIN PRN IV SEE COMMENTS; Start 09/06/18 at 20:45; Status Cancel Acetaminophen/ Hydrocodone Bitart (Lortab 5/325) 1 tab PRN Q4HRS PRN PO PAIN Last administered on 09/09/18at 21:13; Start 09/06/18 at 21:45 Potassium Chloride (Klor-Con) 40 meq 1X ONCE PO Last administered on 09/06/18at 22:40; Start 09/06/18 at 22:00; Stop 09/06/18 at 22:01; Status DC Potassium Chloride (Klor-Con) 20 meq DAILYWBKFT PO Last administered on 09/10/18 08:34; Start 09/07/18 at 08:00 Amlodipine Besylate (Norvasc) 10 mg DAILY PO Last administered on 09/08/18 10:43; Start 09/07/18 at 09:00; Stop 09/09/18 at 15:32; Status DC Aspirin (Ecotrin) 81 mg DAILY PO Last administered on 09/10/18 08:33; Start 09/07/18 at 09:00 Atorvastatin Calcium (Lipitor) 40 mg HS PO Last administered on 09/09/18 21:11; Start 09/07/18 at 21:00 Gabapentin (Neurontin) 100 mg BID PO ; Start 09/06/18 at 22:00; Status Cancel Metoprolol Succinate (Toprol Xl) 1,875 mg DAILY PO ; Start 09/07/18 at 09:00; Status UNV Oxybutynin Chloride (Ditropan) 10 mg HS PO Last administered on 09/09/18 21:11; Start 09/06/18 at 22:00 Sertraline HCl (Zoloft) 50 mg DAILY PO Last administered on 09/10/18 08:33; Start 09/07/18 at 09:00 Donepezil HCl (Aricept) 10 mg QHS PO Last administered on 09/09/18 21:11; Start 09/06/18 at 22:00 Non-Formulary Medication (Insulin Aspart (Novolog Flexpen)) TIDWMEALS SQ ; Start 09/07/18 at 08:00; Status UNV Insulin Glargine (Lantus) 40 units QHS SQ Last administered on 09/09/18 21:29; Start 09/06/18 at 22:00 Metolazone (Zaroxolyn) 2.5 mg DAILY PO Last administered on 09/10/18 08:33; Start 09/07/18 at 09:00 Pioglitazone HCl (Actos) 30 mg DAILY PO Last administered on 09/10/18 08:33; Start 09/07/18 at 09:00 Insulin Human Lispro (HumaLOG) 0-9 UNITS TIDWMEALS SQ Last administered on 09/09/18at 17:29; Start 09/07/18 at 08:00 Dextrose (Dextrose 50%-Water Syringe) 12.5 gm PRN Q15MIN PRN IV SEE COMMENTS; Start 09/06/18 at 21:45 Albuterol/ Ipratropium (Duoneb) 3 ml RTQID NEB Last administered on 09/10/18at 11:19; Start 09/07/18 at 08:00 Enoxaparin Sodium (Lovenox Per Pharmacy Prophylaxis Dosing) 1 each PRN DAILY PRN MC SEE COMMENTS; Start 09/06/18 at 21:45 Magnesium Sulfate 50 ml @ 25 mls/hr 1X ONCE IV Last administered on 09/06/18at 22:51; Start 09/06/18 at 23:00; Stop 09/07/18 at 00:59; Status DC Enoxaparin Sodium (Lovenox 40mg Syringe) 40 mg Q24H SQ Last administered on 09/09/18at 21:11; Start 09/06/18 at 22:00 Metoprolol Succinate (Toprol Xl) 75 mg DAILY PO Last administered on 09/10/18at 08:36; Start 09/07/18 at 09:00 Gabapentin (Neurontin) 300 mg BID PO Last administered on 09/10/18 08:34; Start 09/06/18 at 23:00 Diclofenac Sodium (Voltaren) 1 yudy BID TP Last administered on 09/10/18 08:34; Start 09/07/18 at 10:00 Magnesium Sulfate 50 ml @ 25 mls/hr PRN DAILY PRN IV for Mag < 1.7 on am labs Last administered on 09/07/18at 17:22; Start 09/07/18 at 13:15 Insulin Human Lispro (HumaLOG) 5 units 1X ONCE SQ Last administered on 09/07/18at 23:01; Start 09/07/18 at 22:30; Stop 09/07/18 at 22:31; Status DC Methylprednisolone Acetate (DEPO-Medrol 40MG VIAL) 40 mg 1X ONCE IM ; Start 09/09/18 at 09:15; Stop 09/09/18 at 09:16; Status DC Bupivacaine HCl (Sensorcaine-Mpf 0.25%) 10 ml 1X ONCE IJ ; Start 09/09/18 at 09:15; Stop 09/09/18 at 09:16; Status DC Amlodipine Besylate (Norvasc) 5 mg DAILY PO Last administered on 09/10/18at 08:35; Start 09/10/18 at 09:00 Active Scripts Active Lasix (Furosemide) 40 Mg Tablet 1 Tab PO BID Hydrocodone-Apap 5-325 (Hydrocodone Bit/Acetaminophen) 1 Each Tablet 1 Tab PO PRN Q4HRS PRN 7 Days Novolog Flexpen (Insulin Aspart) 100 Unit/1 Ml Insuln.pen 0 Units SQ TIDWMEALS 30 Days Reported Gabapentin (Gabapentin) 300 Mg Capsule 300 Mg PO BID Gabapentin (Gabapentin) 300 Mg Capsule 300 Mg PO BID Metoprolol Succinate ( Xl ) (Metoprolol Succinate) 25 Mg Tab.er.24h 3 Tab PO DAILY Lasix (Furosemide) 40 Mg Tablet 1 Tab PO PRN DAILY PRN Give 40 mg PO Lasix PRN if pt gains 2 lbs in 1 day or 5 lbs in 1 week; if pt also shows signs of CHF exacerbation Furosemide 40 Mg Tablet 1 Tab PO BID 2 Days Losartan Potassium 50 Mg Tablet 50 Mg PO DAILY Metolazone 2.5 Mg Tablet 2.5 Mg PO DAILY Oxybutynin Chloride 5 Mg Tablet 10 Mg PO HS Levemir Flextouch (Insulin Detemir) 100 Unit/1 Ml Insuln.pen 40 Unit SQ HS Pioglitazone Hcl 30 Mg Tablet 30 Mg PO DAILY Zoloft (Sertraline Hcl) 50 Mg Tablet 1 Tab PO DAILY Atorvastatin Calcium 40 Mg Tablet 40 Mg PO HS Aspirin Ec (Aspirin) 81 Mg Tablet.dr 81 Mg PO Amlodipine Besylate 10 Mg Tablet 10 Mg PO DAILY Donepezil Hcl 10 Mg Tablet 10 Mg PO HS Vital Signs Vital Signs Date Time Temp Pulse Resp B/P (MAP) Pulse Ox O2 Delivery O2 Flow Rate FiO2 09/10/18 11:19 94 Room Air 09/10/18 11:00 98.4 57 18 145/56 (85) 98.4 09/10/18 08:00 2.0 Labs Laboratory Tests Test 09/08/18 16:58 09/08/18 21:27 09/09/18 06:50 09/09/18 06:55 Glucose (Fingerstick) 177 mg/dL (70-99) 198 mg/dL (70-99) White Blood Count 8.0 x10^3/uL (4.0-11.0) Red Blood Count 3.77 x10^6/uL (3.50-5.40) Hemoglobin 11.3 g/dL (12.0-15.5) Hematocrit 34.3 % (36.0-47.0) Mean Corpuscular Volume 91 fL (79-100) Mean Corpuscular Hemoglobin 30 pg (25-35) Mean Corpuscular Hemoglobin Concent 33 g/dL (31-37) Red Cell Distribution Width 13.9 % (11.5-14.5) Platelet Count 210 x10^3/uL (140-400) Neutrophils (%) (Auto) 70 % (31-73) Lymphocytes (%) (Auto) 19 % (24-48) Monocytes (%) (Auto) 7 % (0-9) Eosinophils (%) (Auto) 4 % (0-3) Basophils (%) (Auto) 0 % (0-3) Neutrophils # (Auto) 5.6 x10^3uL (1.8-7.7) Lymphocytes # (Auto) 1.5 x10^3/uL (1.0-4.8) Monocytes # (Auto) 0.6 x10^3/uL (0.0-1.1) Eosinophils # (Auto) 0.3 x10^3/uL (0.0-0.7) Basophils # (Auto) 0.0 x10^3/uL (0.0-0.2) Sodium Level 143 mmol/L (136-145) Potassium Level 3.6 mmol/L (3.5-5.1) Chloride Level 103 mmol/L (98-107) Carbon Dioxide Level 34 mmol/L (21-32) Anion Gap 6 (6-14) Blood Urea Nitrogen 38 mg/dL (7-20) Creatinine 1.8 mg/dL (0.6-1.0) Estimated GFR (Cockcroft-Gault) 33.3 Glucose Level 69 mg/dL (70-99) Calcium Level 9.7 mg/dL (8.5-10.1) Magnesium Level 2.3 mg/dL (1.8-2.4) Creatine Kinase 39 U/L (26-192) Test 4/29/19 08:14 09/09/18 10:31 09/09/18 17:00 09/09/18 21:20 Glucose (Fingerstick) 62 mg/dL (70-99) 137 mg/dL (70-99) 203 mg/dL (70-99) 179 mg/dL (70-99) Test 09/10/18 02:45 09/10/18 07:51 09/10/18 11:20 White Blood Count 6.9 x10^3/uL (4.0-11.0) Red Blood Count 3.56 x10^6/uL (3.50-5.40) Hemoglobin 10.6 g/dL (12.0-15.5) Hematocrit 32.3 % (36.0-47.0) Mean Corpuscular Volume 91 fL (79-100) Mean Corpuscular Hemoglobin 30 pg (25-35) Mean Corpuscular Hemoglobin Concent 33 g/dL (31-37) Red Cell Distribution Width 13.9 % (11.5-14.5) Platelet Count 194 x10^3/uL (140-400) Neutrophils (%) (Auto) 65 % (31-73) Lymphocytes (%) (Auto) 23 % (24-48) Monocytes (%) (Auto) 7 % (0-9) Eosinophils (%) (Auto) 4 % (0-3) Basophils (%) (Auto) 1 % (0-3) Neutrophils # (Auto) 4.5 x10^3uL (1.8-7.7) Lymphocytes # (Auto) 1.6 x10^3/uL (1.0-4.8) Monocytes # (Auto) 0.5 x10^3/uL (0.0-1.1) Eosinophils # (Auto) 0.3 x10^3/uL (0.0-0.7) Basophils # (Auto) 0.0 x10^3/uL (0.0-0.2) Sodium Level 139 mmol/L (136-145) Potassium Level 3.9 mmol/L (3.5-5.1) Chloride Level 101 mmol/L (98-107) Carbon Dioxide Level 33 mmol/L (21-32) Anion Gap 5 (6-14) Blood Urea Nitrogen 44 mg/dL (7-20) Creatinine 1.9 mg/dL (0.6-1.0) Estimated GFR (Cockcroft-Gault) 31.3 Glucose Level 181 mg/dL (70-99) Calcium Level 9.3 mg/dL (8.5-10.1) Phosphorus Level 3.9 mg/dL (2.6-4.7) Magnesium Level 2.1 mg/dL (1.8-2.4) Albumin 2.8 g/dL (3.4-5.0) Glucose (Fingerstick) 107 mg/dL (70-99) 115 mg/dL (70-99) Laboratory Tests Test 09/09/18 17:00 09/09/18 21:20 09/10/18 02:45 09/10/18 07:51 Glucose (Fingerstick) 203 mg/dL (70-99) 179 mg/dL (70-99) 107 mg/dL (70-99) White Blood Count 6.9 x10^3/uL (4.0-11.0) Red Blood Count 3.56 x10^6/uL (3.50-5.40) Hemoglobin 10.6 g/dL (12.0-15.5) Hematocrit 32.3 % (36.0-47.0) Mean Corpuscular Volume 91 fL (79-100) Mean Corpuscular Hemoglobin 30 pg (25-35) Mean Corpuscular Hemoglobin Concent 33 g/dL (31-37) Red Cell Distribution Width 13.9 % (11.5-14.5) Platelet Count 194 x10^3/uL (140-400) Neutrophils (%) (Auto) 65 % (31-73) Lymphocytes (%) (Auto) 23 % (24-48) Monocytes (%) (Auto) 7 % (0-9) Eosinophils (%) (Auto) 4 % (0-3) Basophils (%) (Auto) 1 % (0-3) Neutrophils # (Auto) 4.5 x10^3uL (1.8-7.7) Lymphocytes # (Auto) 1.6 x10^3/uL (1.0-4.8) Monocytes # (Auto) 0.5 x10^3/uL (0.0-1.1) Eosinophils # (Auto) 0.3 x10^3/uL (0.0-0.7) Basophils # (Auto) 0.0 x10^3/uL (0.0-0.2) Sodium Level 139 mmol/L (136-145) Potassium Level 3.9 mmol/L (3.5-5.1) Chloride Level 101 mmol/L (98-107) Carbon Dioxide Level 33 mmol/L (21-32) Anion Gap 5 (6-14) Blood Urea Nitrogen 44 mg/dL (7-20) Creatinine 1.9 mg/dL (0.6-1.0) Estimated GFR (Cockcroft-Gault) 31.3 Glucose Level 181 mg/dL (70-99) Calcium Level 9.3 mg/dL (8.5-10.1) Phosphorus Level 3.9 mg/dL (2.6-4.7) Magnesium Level 2.1 mg/dL (1.8-2.4) Albumin 2.8 g/dL (3.4-5.0) Test 09/10/18 11:20 Glucose (Fingerstick) 115 mg/dL (70-99) Allergies Allergies Coded Allergies Type Severity Reaction Last Updated Verified No Known Drug Allergies 08/04/16 No Disposition/Orders: D/C to Home w/ HH Patient Instructions D/C PLANNING 35 MIN TINO FARLEY MD Sep 10, 2018 13:58
[2018-09-10] MEDS ORDERED: AMLO10TA8 PO (14:02)
[2018-09-10] MEDS ORDERED: POTA20TA4 PO (14:02)
--- NOTE | 2018-09-10 14:04 | SNU/HH DC ---
DISCHARGE WITH HOME HEALTH DISCHARGE INFORMATION: Final Diagnosis: Problems Medical Problems: (1) Coccyx pain Status: Acute (2) Hematoma of scalp Status: Acute (3) Hyperglycemia Status: Acute Condition on Discharge: Stable CODE STATUS: Code Status: Full HOME HEALTH: Face to Face: I certify this patient is under my care and that I, or a nurse practitioner or physician's law office assistant working with me, had a face to face encounter that meets the physician face to face encounter requirements with this patient on []. Medical Complications: Falls RN For Eval/Treatment: Yes Physical Therapy For: Evalulation/Treatment Occupational Therapy For: Evaluation/Treatment Speech Language Pathology For: Evaluation/Treatment Home Health Aide For: Self-care LIQUOR DEPARTMENT MANAGER For: Community Resources Pt Meets Homebound Status: Unsteady balance w/ amb,, Limited distance walking, Poor cognition POST DISCHARGE ORDERS: Activity Instructions for Disc: Activity as tolerated Weight Bearing Status after Di: As tolerated Bathing Instructions: Shower-keep dressing dry, No Tub Bath until see DIET AFTER DISCHARGE: Cardiac Wound/Incision Care: Other, see below CHECKS AFTER DISCHARGE: Checks after discharge: Check blood press - daily, Check blood sugar, ac/hs TREATMENT/EQUIPMENT ORDERS: Adaptive Equipment Issued: Four wheeled walker Discharge Respiratory Equipmen: Oxygen CERTIFICATION STATEMENT: Certification Statement: Certification Statement: Based on the above finding, I certify that this patient is confined to the home and needs intermittent intermediate care, physical therapy and/or speech therapy, or continues to need occupational therapy.~ This patient is under my care, and I have initiated the establishment of the plan of care.~ This patient will be followed by myself or a community physician who will periodically review the plan of care. Home Meds Active Scripts Furosemide (LASIX) 40 Mg Tablet, 1 TAB PO BID for diuretic, #90 TAB 1 Refill Prov:CASTLE,NIAL K III DO 06/28/18 Hydrocodone Bit/Acetaminophen (HYDROCODONE-APAP 5-325 ) 1 Each Tablet, 1 TAB PO PRN Q4HRS PRN for MILD PAIN for 7 Days, #42 CAP 0 Refills Prov:ZAY MONTEMAYOR MD 06/18/18 Insulin Aspart (NOVOLOG FLEXPEN) 100 Unit/1 Ml Insuln.pen, 0 UNITS SQ TIDWMEALS for 30 Days, LIQUID 5 Refills Prov:ДМИТРИЙ RILEY MD 03/17/16 Reported Medications Gabapentin (GABAPENTIN ) 300 Mg Capsule, 300 MG PO BID for NEUROGENIC PAIN, CAP 09/06/18 Gabapentin (GABAPENTIN ) 300 Mg Capsule, 300 MG PO BID for NEUROGENIC PAIN, CAP 09/06/18 Metoprolol Succinate (METOPROLOL SUCCINATE ( XL )) 25 Mg Tab.er.24h, 3 TAB PO DAILY for hypertension, #30 TAB 5 Refills 09/06/18 Furosemide (LASIX) 40 Mg Tablet, 1 TAB PO PRN DAILY PRN for CHF exacerbation, #90 TAB 1 Refill Give 40 mg PO Lasix PRN if pt gains 2 lbs in 1 day or 5 lbs in 1 week; if pt also shows signs of CHF exacerbation 06/28/18 Furosemide (FUROSEMIDE) 40 Mg Tablet, 1 TAB PO BID for diuretic for 2 Days, #4 TAB 5 Refills 06/28/18 Losartan Potassium (LOSARTAN POTASSIUM) 50 Mg Tablet, 50 MG PO DAILY for HYPERTENSION, TAB 06/28/18 Metolazone (METOLAZONE) 2.5 Mg Tablet, 2.5 MG PO DAILY, #30 TAB 0 Refills 06/25/18 Oxybutynin Chloride (OXYBUTYNIN CHLORIDE) 5 Mg Tablet, 10 MG PO HS, TAB 06/12/18 Insulin Detemir (Levemir Flextouch) 100 Unit/1 Ml Insuln.pen, 40 UNIT SQ HS, SYR 06/12/18 Pioglitazone Hcl (PIOGLITAZONE HCL) 30 Mg Tablet, 30 MG PO DAILY, TAB 06/12/18 Sertraline Hcl (ZOLOFT) 50 Mg Tablet, 1 TAB PO DAILY, #30 TAB 2 Refills 06/12/18 Atorvastatin Calcium (ATORVASTATIN CALCIUM) 40 Mg Tablet, 40 MG PO HS for FOR CHOLESTEROL, #30 TAB 0 Refills 07/21/16 Aspirin (ASPIRIN EC) 81 Mg Tablet.dr, 81 MG PO 03/14/16 Amlodipine Besylate (AMLODIPINE BESYLATE) 10 Mg Tablet, 10 MG PO DAILY, TAB 03/14/16 Donepezil Hcl (DONEPEZIL HCL) 10 Mg Tablet, 10 MG PO HS, TAB 03/14/16 TINO FARLEY MD Sep 10, 2018 14:04
--- NOTE | 2018-09-10 14:08 | NUR ---
SW following. Discussed with RN, pt possibly ready to discharge today. Pt and family want to discharge home with [facility]. Discharge paperwork/orders needed for home health PT/OT/RN/SP. RN notified. SW will continue to follow.
[2018-09-10 15:00] VITALS: BP 137/64
[2018-09-10] MEDS ORDERED: BISACODYL 10 MG SUPP.RECT. PR PRN (16:00)
[2018-09-10 19:00] VITALS: BP 161/66
[2018-09-10] MEDS: OXYBUTYNIN CHLORIDE 5 MG TABLET PO SCH (20:04)
[2018-09-10] MEDS: ATORVASTATIN CALCIUM 40 MG TABLET. PO SCH (20:04)
[2018-09-10] MEDS: DONEPEZIL HCL 10 MG TABLET. PO SCH (20:05)
[2018-09-10] MEDS: INSULIN GLARGINE 300 UNITS/3 ML INSULN.PEN. SQ SCH (22:31)
[2018-09-10] MEDS: ENOXAPARIN 40 MG/0.4 ML SYRINGE. SQ SCH (22:32)
[2018-09-10 23:00] VITALS: BP 126/60
[2018-09-11 03:00] VITALS: BP 159/62
[2018-09-11 07:00] VITALS: BP 154/60
[2018-09-11] MEDS: IPRATRPIUM/ALBUTEROL 0.5/2.5MG 3 ML NEBU. NEB SCH ×2 (07:45→12:16)
[2018-09-11] MEDS: INSULIN LISPRO 300 UNITS/3 ML INSULN.PEN. SQ SCH ×2 (08:00→12:00)
--- NOTE | 2018-09-11 09:17 | PDOC ---
PROGRESS NOTES Subjective Subjective No new complaints. Objective Objective Vital Signs Date Time Temp Pulse Resp B/P (MAP) Pulse Ox O2 Delivery O2 Flow Rate FiO2 09/11/18 07:46 96 Room Air 09/11/18 07:00 98.6 63 18 154/60 (91) 98.6 09/10/18 20:00 2.0 Intake and Output 09/11/18 07:00 Intake Total 900 ml Balance 900 ml Intake Oral 900 ml # Voids 5 Physical Exam Physical Exam She is somewhat lethargic this AM. Her oxygen saturation is 94% on room air while supine in bed and nursing reports of it being at 95% while up walking yesterday. Assessment Assessment Problems Medical Problems: (1) Coccyx pain Status: Acute (2) Hematoma of scalp Status: Acute (3) Hyperglycemia Status: Acute Plan Plan of Group Home with home health follow up when medically stable. Comment Review of Relevant I have reviewed the following items joel (where applicable) has been applied. Labs Laboratory Tests Test 09/09/18 10:31 09/09/18 17:00 09/09/18 21:20 09/10/18 02:45 Glucose (Fingerstick) 137 mg/dL (70-99) 203 mg/dL (70-99) 179 mg/dL (70-99) White Blood Count 6.9 x10^3/uL (4.0-11.0) Red Blood Count 3.56 x10^6/uL (3.50-5.40) Hemoglobin 10.6 g/dL (12.0-15.5) Hematocrit 32.3 % (36.0-47.0) Mean Corpuscular Volume 91 fL (79-100) Mean Corpuscular Hemoglobin 30 pg (25-35) Mean Corpuscular Hemoglobin Concent 33 g/dL (31-37) Red Cell Distribution Width 13.9 % (11.5-14.5) Platelet Count 194 x10^3/uL (140-400) Neutrophils (%) (Auto) 65 % (31-73) Lymphocytes (%) (Auto) 23 % (24-48) Monocytes (%) (Auto) 7 % (0-9) Eosinophils (%) (Auto) 4 % (0-3) Basophils (%) (Auto) 1 % (0-3) Neutrophils # (Auto) 4.5 x10^3uL (1.8-7.7) Lymphocytes # (Auto) 1.6 x10^3/uL (1.0-4.8) Monocytes # (Auto) 0.5 x10^3/uL (0.0-1.1) Eosinophils # (Auto) 0.3 x10^3/uL (0.0-0.7) Basophils # (Auto) 0.0 x10^3/uL (0.0-0.2) Sodium Level 139 mmol/L (136-145) Potassium Level 3.9 mmol/L (3.5-5.1) Chloride Level 101 mmol/L (98-107) Carbon Dioxide Level 33 mmol/L (21-32) Anion Gap 5 (6-14) Blood Urea Nitrogen 44 mg/dL (7-20) Creatinine 1.9 mg/dL (0.6-1.0) Estimated GFR (Cockcroft-Gault) 31.3 Glucose Level 181 mg/dL (70-99) Calcium Level 9.3 mg/dL (8.5-10.1) Phosphorus Level 3.9 mg/dL (2.6-4.7) Magnesium Level 2.1 mg/dL (1.8-2.4) Albumin 2.8 g/dL (3.4-5.0) Test 09/10/18 07:51 09/10/18 11:20 09/10/18 16:44 09/10/18 22:24 Glucose (Fingerstick) 107 mg/dL (70-99) 115 mg/dL (70-99) 156 mg/dL (70-99) 162 mg/dL (70-99) Test 09/11/18 07:42 Glucose (Fingerstick) 91 mg/dL (70-99) Laboratory Tests Test 09/10/18 11:20 09/10/18 16:44 09/10/18 22:24 09/11/18 07:42 Glucose (Fingerstick) 115 mg/dL (70-99) 156 mg/dL (70-99) 162 mg/dL (70-99) 91 mg/dL (70-99) Medications Current Medications Ondansetron HCl (Zofran Odt) 4 mg 1X ONCE PO Last administered on 09/06/18at 16:37; Start 09/06/18 at 16:30; Stop 09/06/18 at 16:31; Status DC Acetaminophen/ Hydrocodone Bitart (Lortab 7.5/325) 1 tab 1X ONCE PO Last administered on 09/06/18at 16:37; Start 09/06/18 at 16:30; Stop 09/06/18 at 16:31; Status DC Insulin Human Lispro (HumaLOG VIAL) 5 unit 1X ONCE SQ ; Start 09/06/18 at 16:45; Stop 09/06/18 at 16:46; Status UNV Insulin Human Regular (HumuLIN R VIAL) 5 unit 1X ONCE IV ; Start 09/06/18 at 16:45; Stop 09/06/18 at 16:46; Status DC Insulin Human Regular (HumuLIN R VIAL) 5 unit 1X ONCE SQ Last administered on 09/06/18at 17:17; Start 09/06/18 at 16:45; Stop 09/06/18 at 16:48; Status DC Fentanyl Citrate (Fentanyl 2ml Vial) 25 mcg 1X ONCE IM Last administered on 09/06/18at 18:31; Start 09/06/18 at 18:15; Stop 09/06/18 at 18:16; Status DC Sodium Chloride 1,000 ml @ 1,000 mls/hr 1X ONCE IV Last administered on 09/06/18at 19:29; Start 09/06/18 at 19:00; Stop 09/06/18 at 19:59; Status DC Ondansetron HCl (Zofran) 4 mg PRN Q8HRS PRN IV NAUSEA/VOMITING Last administered on 09/07/18at 13:08; Start 09/06/18 at 20:00; Stop 09/07/18 at 19:59; Status DC Morphine Sulfate (Morphine Sulfate) 2 mg PRN Q2HR PRN IV PAIN Last administered on 09/06/18at 23:48; Start 09/06/18 at 20:00; Stop 09/07/18 at 19:59; Status DC Potassium Chloride (Klor-Con) 20 meq 1X ONCE PO Last administered on 09/06/18at 20:42; Start 09/06/18 at 20:45; Stop 09/06/18 at 20:46; Status DC Insulin Human Lispro (HumaLOG) 0-5 UNITS TIDWMEALS SQ ; Start 09/07/18 at 08:00; Stop 09/07/18 at 08:00; Status DC Dextrose (Dextrose 50%-Water Syringe) 12.5 gm PRN Q15MIN PRN IV SEE COMMENTS; Start 09/06/18 at 20:45; Status Cancel Acetaminophen/ Hydrocodone Bitart (Lortab 5/325) 1 tab PRN Q4HRS PRN PO PAIN Last administered on 09/09/18 21:13; Start 09/06/18 at 21:45 Potassium Chloride (Klor-Con) 40 meq 1X ONCE PO Last administered on 09/06/18at 22:40; Start 09/06/18 at 22:00; Stop 09/06/18 at 22:01; Status DC Potassium Chloride (Klor-Con) 20 meq DAILYWBKFT PO Last administered on 09/10/18 08:34; Start 09/07/18 at 08:00 Amlodipine Besylate (Norvasc) 10 mg DAILY PO Last administered on 09/08/18 10:43; Start 09/07/18 at 09:00; Stop 09/09/18 at 15:32; Status DC Aspirin (Ecotrin) 81 mg DAILY PO Last administered on 09/10/18 08:33; Start 09/07/18 at 09:00 Atorvastatin Calcium (Lipitor) 40 mg HS PO Last administered on 09/10/18 20:04; Start 09/07/18 at 21:00 Gabapentin (Neurontin) 100 mg BID PO ; Start 09/06/18 at 22:00; Status Cancel Metoprolol Succinate (Toprol Xl) 1,875 mg DAILY PO ; Start 09/07/18 at 09:00; Status UNV Oxybutynin Chloride (Ditropan) 10 mg HS PO Last administered on 09/10/18 20:04; Start 09/06/18 at 22:00 Sertraline HCl (Zoloft) 50 mg DAILY PO Last administered on 09/10/18 08:33; Start 09/07/18 at 09:00 Donepezil HCl (Aricept) 10 mg QHS PO Last administered on 09/10/18 20:05; Start 09/06/18 at 22:00 Non-Formulary Medication (Insulin Aspart (Novolog Flexpen)) TIDWMEALS SQ ; Start 09/07/18 at 08:00; Status UNV Insulin Glargine (Lantus) 40 units QHS SQ Last administered on 09/10/18 22:31; Start 09/06/18 at 22:00 Metolazone (Zaroxolyn) 2.5 mg DAILY PO Last administered on 09/10/18 08:33; Start 09/07/18 at 09:00 Pioglitazone HCl (Actos) 30 mg DAILY PO Last administered on 09/10/18 08:33; Start 09/07/18 at 09:00 Insulin Human Lispro (HumaLOG) 0-9 UNITS TIDWMEALS SQ Last administered on 09/09/18 17:29; Start 09/07/18 at 08:00 Dextrose (Dextrose 50%-Water Syringe) 12.5 gm PRN Q15MIN PRN IV SEE COMMENTS; Start 09/06/18 at 21:45 Albuterol/ Ipratropium (Duoneb) 3 ml RTQID NEB Last administered on 09/11/18 07:45; Start 09/07/18 at 08:00 Enoxaparin Sodium (Lovenox Per Pharmacy Prophylaxis Dosing) 1 each PRN DAILY PRN MC SEE COMMENTS; Start 09/06/18 at 21:45 Magnesium Sulfate 50 ml @ 25 mls/hr 1X ONCE IV Last administered on 09/06/18 22:51; Start 09/06/18 at 23:00; Stop 09/07/18 at 00:59; Status DC Enoxaparin Sodium (Lovenox 40mg Syringe) 40 mg Q24H SQ Last administered on 09/10/18 22:32; Start 09/06/18 at 22:00 Metoprolol Succinate (Toprol Xl) 75 mg DAILY PO Last administered on 09/10/18 08:36; Start 09/07/18 at 09:00 Gabapentin (Neurontin) 300 mg BID PO Last administered on 09/10/18 20:04; Start 09/06/18 at 23:00 Diclofenac Sodium (Voltaren) 1 yudy BID TP Last administered on 09/10/18 20:05; Start 09/07/18 at 10:00 Magnesium Sulfate 50 ml @ 25 mls/hr PRN DAILY PRN IV for Mag < 1.7 on am labs Last administered on 4/27/19at 17:22; Start 09/07/18 at 13:15 Insulin Human Lispro (HumaLOG) 5 units 1X ONCE SQ Last administered on 09/07/18at 23:01; Start 09/07/18 at 22:30; Stop 09/07/18 at 22:31; Status DC Methylprednisolone Acetate (DEPO-Medrol 40MG VIAL) 40 mg 1X ONCE IM ; Start 09/09/18 at 09:15; Stop 09/09/18 at 09:16; Status DC Bupivacaine HCl (Sensorcaine-Mpf 0.25%) 10 ml 1X ONCE IJ ; Start 09/09/18 at 09:15; Stop 09/09/18 at 09:16; Status DC Amlodipine Besylate (Norvasc) 5 mg DAILY PO Last administered on 09/10/18at 08:35; Start 09/10/18 at 09:00 Bisacodyl (Dulcolax Supp) 10 mg PRN DAILY PRN [place] CONSTIPATION Last administered on 09/10/18at 18:13; Start 09/10/18 at 16:00 Active Scripts Active Lasix (Furosemide) 40 Mg Tablet 1 Tab PO BID Hydrocodone-Apap 5-325 (Hydrocodone Bit/Acetaminophen) 1 Each Tablet 1 Tab PO PRN Q4HRS PRN 7 Days Novolog Flexpen (Insulin Aspart) 100 Unit/1 Ml Insuln.pen 0 Units SQ TIDWMEALS 30 Days Reported Gabapentin (Gabapentin) 300 Mg Capsule 300 Mg PO BID Gabapentin (Gabapentin) 300 Mg Capsule 300 Mg PO BID Metoprolol Succinate ( Xl ) (Metoprolol Succinate) 25 Mg Tab.er.24h 3 Tab PO DAILY Lasix (Furosemide) 40 Mg Tablet 1 Tab PO PRN DAILY PRN Give 40 mg PO Lasix PRN if pt gains 2 lbs in 1 day or 5 lbs in 1 week; if pt also shows signs of CHF exacerbation Furosemide 40 Mg Tablet 1 Tab PO BID 2 Days Losartan Potassium 50 Mg Tablet 50 Mg PO DAILY Metolazone 2.5 Mg Tablet 2.5 Mg PO DAILY Oxybutynin Chloride 5 Mg Tablet 10 Mg PO HS Levemir Flextouch (Insulin Detemir) 100 Unit/1 Ml Insuln.pen 40 Unit SQ HS Pioglitazone Hcl 30 Mg Tablet 30 Mg PO DAILY Zoloft (Sertraline Hcl) 50 Mg Tablet 1 Tab PO DAILY Atorvastatin Calcium 40 Mg Tablet 40 Mg PO HS Aspirin Ec (Aspirin) 81 Mg Tablet.dr 81 Mg PO Amlodipine Besylate 10 Mg Tablet 10 Mg PO DAILY Donepezil Hcl 10 Mg Tablet 10 Mg PO HS Vitals/I & O Vital Sign - Last 24 Hours 09/10/18 09/10/18 09/10/18 09/10/18 11:00 11:19 15:00 16:19 Temp 98.4 97.9 98.4 97.9 Pulse 57 65 Resp 18 18 B/P (MAP) 145/56 (85) 137/64 (88) Pulse Ox 97 94 95 94 O2 Delivery Room Air Room Air Room Air Room Air 09/10/18 09/10/18 09/10/18 09/10/18 19:00 19:28 20:00 23:00 Temp 98.4 98.5 98.4 98.5 Pulse 67 69 Resp 18 18 B/P (MAP) 161/66 (97) 126/60 (82) Pulse Ox 95 97 95 O2 Delivery Room Air Room Air Nasal Cannula Room Air O2 Flow Rate 2.0 09/11/18 09/11/18 09/11/18 03:00 07:00 07:46 Temp 98.4 98.6 98.4 98.6 Pulse 65 63 Resp 16 18 B/P (MAP) 159/62 (94) 154/60 (91) Pulse Ox 96 94 96 O2 Delivery Room Air Room Air Room Air Intake and Output 09/10/18 09/10/18 09/11/18 15:00 23:00 07:00 Intake Total 600 ml 300 ml Balance 600 ml 300 ml REBA ABEL MD September 11, 2018 09:17
[2018-09-11] MEDS: METOPROLOL SUCC 24HR ER 25 MG TAB.ER.24H. PO SCH (09:18)
[2018-09-11] MEDS: amLODIPine BESYLATE 10 MG TABLET PO SCH (09:18)
[2018-09-11] MEDS: GABAPENTIN 300 MG CAPSULE. PO SCH (09:18)
[2018-09-11] MEDS: PIOGLITAZONE 15 MG TABLET. PO SCH (09:18)
[2018-09-11] MEDS: ASPIRIN ENTERIC COATED 81 MG TABLET.DR. PO SCH (09:18)
[2018-09-11] MEDS: metOLazone 2.5 MG TABLET PO SCH (09:18)
[2018-09-11] MEDS: POTASSIUM CHLORIDE 20 MEQ TABLET.ER. PO SCH (09:18)
[2018-09-11] MEDS: SERTRALINE 50 MG TABLET. PO SCH (09:18)
[2018-09-11] MEDS: DICLOFENAC SODIUM 1% TOPICAL GEL 100GM TUBE. TP SCH (09:19)
--- NOTE | 2018-09-11 10:06 | NUR ---
SW following for discharge planning. Discussed with RN, pt [facility]. No further SW needs.
[2018-09-11] MEDS: HYDROcodone/APAP 5/325MG 1 TAB TABLET PO PRN (10:52)
[2018-09-11 11:00] VITALS: BP 154/64
[2018-09-11 11:37] LABS: BASO % 0 % (0-3); EOS # 0.2 x10^3/uL (0.0-0.7); EOS % 2 % (0-3); HEMATOCRIT 36.5 % (36.0-47.0); HEMOGLOBIN 11.7 g/dL (12.0-15.5); LYMPH % 26 % (24-48); MEAN CORPUSCULAR HEMOGLOBIN 29 pg (25-35); MEAN CORPUSCULAR HGB CONC 32 g/dL (31-37); MEAN CORPUSCULAR VOLUME 91 fL (79-100); MONO # 0.6 x10^3/uL (0.0-1.1); MONO % 7 % (0-9); NEUT % 64 % (31-73); PLATELET COUNT 233 x10^3/uL (140-400); RED CELL DISTRIBUTION WIDTH 14.5 % (11.5-14.5); WHITE BLOOD COUNT 7.8 x10^3/uL (4.0-11.0)
[2018-09-11 12:02] LABS: ALBUMIN 3.2 g/dL (3.4-5.0); CALCIUM 10.1 mg/dL (8.5-10.1); CREATININE 1.7 mg/dL (0.6-1.0); GFR 35.5; MAGNESIUM 2.1 mg/dL (1.8-2.4); PHOSPHORUS 2.8 mg/dL (2.6-4.7); POTASSIUM 4.1 mmol/L (3.5-5.1)
--- NOTE | 2018-09-11 12:23 | PDOC ---
PROGRESS NOTES Chief Complaint Chief Complaint Head trauma, subgaleal hematoma CKD STAGE 3 History of Present Illness History of Present Illness Patient was seen and examined Patient was sitting up in a chair today. She states she still has some head tenderness. No intracranial hemorrhage. Large subgaleal hematoma at the vertex. No acute fracture or malalignment. hypertensive urgency.improving Diabetes. Obesity.morbid Obstructive sleep apnea. 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 Peripheral vascular disease. Vitals Vitals Vital Signs Date Time Temp Pulse Resp B/P (MAP) Pulse Ox O2 Delivery O2 Flow Rate FiO2 09/11/18 12:17 99 Room Air 09/11/18 11:00 98.0 57 18 154/64 (94) 98.0 09/10/18 20:00 2.0 Physical Exam General: Alert, Oriented X3, Cooperative, No acute distress, mild distress Heart: Regular rate, Normal S1 Lungs: Clear (No wheezes, rales, or rhonchi) Abdomen: Normal bowel sounds, Soft Extremities: No cyanosis, No edema Skin: No rashes, No breakdown, No significant lesion Labs LABS Laboratory Tests Test 09/10/18 16:44 09/10/18 22:24 09/11/18 07:42 09/11/18 09:24 Glucose (Fingerstick) 156 mg/dL (70-99) 162 mg/dL (70-99) 91 mg/dL (70-99) White Blood Count 7.8 x10^3/uL (4.0-11.0) Red Blood Count 4.00 x10^6/uL (3.50-5.40) Hemoglobin 11.7 g/dL (12.0-15.5) Hematocrit 36.5 % (36.0-47.0) Mean Corpuscular Volume 91 fL (79-100) Mean Corpuscular Hemoglobin 29 pg (25-35) Mean Corpuscular Hemoglobin Concent 32 g/dL (31-37) Red Cell Distribution Width 14.5 % (11.5-14.5) Platelet Count 233 x10^3/uL (140-400) Neutrophils (%) (Auto) 64 % (31-73) Lymphocytes (%) (Auto) 26 % (24-48) Monocytes (%) (Auto) 7 % (0-9) Eosinophils (%) (Auto) 2 % (0-3) Basophils (%) (Auto) 0 % (0-3) Neutrophils # (Auto) 5.0 x10^3uL (1.8-7.7) Lymphocytes # (Auto) 2.0 x10^3/uL (1.0-4.8) Monocytes # (Auto) 0.6 x10^3/uL (0.0-1.1) Eosinophils # (Auto) 0.2 x10^3/uL (0.0-0.7) Basophils # (Auto) 0.0 x10^3/uL (0.0-0.2) Sodium Level 143 mmol/L (136-145) Potassium Level 4.1 mmol/L (3.5-5.1) Chloride Level 102 mmol/L (98-107) Carbon Dioxide Level 34 mmol/L (21-32) Anion Gap 7 (6-14) Blood Urea Nitrogen 38 mg/dL (7-20) Creatinine 1.7 mg/dL (0.6-1.0) Estimated GFR (Cockcroft-Gault) 35.5 Glucose Level 89 mg/dL (70-99) Calcium Level 10.1 mg/dL (8.5-10.1) Phosphorus Level 2.8 mg/dL (2.6-4.7) Magnesium Level 2.1 mg/dL (1.8-2.4) Albumin 3.2 g/dL (3.4-5.0) Test 09/11/18 11:42 Glucose (Fingerstick) 188 mg/dL (70-99) Assessment and Plan Assessmemt and Plan Problems Medical Problems: (1) Coccyx pain Status: Acute (2) Hematoma of scalp Status: Acute (3) Hyperglycemia Status: Acute Comment Review of Relevant I have reviewed the following items joel (where applicable) has been applied. Labs Laboratory Tests Test 09/09/18 17:00 09/09/18 21:20 09/10/18 02:45 09/10/18 07:51 Glucose (Fingerstick) 203 mg/dL (70-99) 179 mg/dL (70-99) 107 mg/dL (70-99) White Blood Count 6.9 x10^3/uL (4.0-11.0) Red Blood Count 3.56 x10^6/uL (3.50-5.40) Hemoglobin 10.6 g/dL (12.0-15.5) Hematocrit 32.3 % (36.0-47.0) Mean Corpuscular Volume 91 fL (79-100) Mean Corpuscular Hemoglobin 30 pg (25-35) Mean Corpuscular Hemoglobin Concent 33 g/dL (31-37) Red Cell Distribution Width 13.9 % (11.5-14.5) Platelet Count 194 x10^3/uL (140-400) Neutrophils (%) (Auto) 65 % (31-73) Lymphocytes (%) (Auto) 23 % (24-48) Monocytes (%) (Auto) 7 % (0-9) Eosinophils (%) (Auto) 4 % (0-3) Basophils (%) (Auto) 1 % (0-3) Neutrophils # (Auto) 4.5 x10^3uL (1.8-7.7) Lymphocytes # (Auto) 1.6 x10^3/uL (1.0-4.8) Monocytes # (Auto) 0.5 x10^3/uL (0.0-1.1) Eosinophils # (Auto) 0.3 x10^3/uL (0.0-0.7) Basophils # (Auto) 0.0 x10^3/uL (0.0-0.2) Sodium Level 139 mmol/L (136-145) Potassium Level 3.9 mmol/L (3.5-5.1) Chloride Level 101 mmol/L (98-107) Carbon Dioxide Level 33 mmol/L (21-32) Anion Gap 5 (6-14) Blood Urea Nitrogen 44 mg/dL (7-20) Creatinine 1.9 mg/dL (0.6-1.0) Estimated GFR (Cockcroft-Gault) 31.3 Glucose Level 181 mg/dL (70-99) Calcium Level 9.3 mg/dL (8.5-10.1) Phosphorus Level 3.9 mg/dL (2.6-4.7) Magnesium Level 2.1 mg/dL (1.8-2.4) Albumin 2.8 g/dL (3.4-5.0) Test 09/10/18 11:20 09/10/18 16:44 09/10/18 22:24 09/11/18 07:42 Glucose (Fingerstick) 115 mg/dL (70-99) 156 mg/dL (70-99) 162 mg/dL (70-99) 91 mg/dL (70-99) Test 09/11/18 09:24 09/11/18 11:42 White Blood Count 7.8 x10^3/uL (4.0-11.0) Red Blood Count 4.00 x10^6/uL (3.50-5.40) Hemoglobin 11.7 g/dL (12.0-15.5) Hematocrit 36.5 % (36.0-47.0) Mean Corpuscular Volume 91 fL (79-100) Mean Corpuscular Hemoglobin 29 pg (25-35) Mean Corpuscular Hemoglobin Concent 32 g/dL (31-37) Red Cell Distribution Width 14.5 % (11.5-14.5) Platelet Count 233 x10^3/uL (140-400) Neutrophils (%) (Auto) 64 % (31-73) Lymphocytes (%) (Auto) 26 % (24-48) Monocytes (%) (Auto) 7 % (0-9) Eosinophils (%) (Auto) 2 % (0-3) Basophils (%) (Auto) 0 % (0-3) Neutrophils # (Auto) 5.0 x10^3uL (1.8-7.7) Lymphocytes # (Auto) 2.0 x10^3/uL (1.0-4.8) Monocytes # (Auto) 0.6 x10^3/uL (0.0-1.1) Eosinophils # (Auto) 0.2 x10^3/uL (0.0-0.7) Basophils # (Auto) 0.0 x10^3/uL (0.0-0.2) Sodium Level 143 mmol/L (136-145) Potassium Level 4.1 mmol/L (3.5-5.1) Chloride Level 102 mmol/L (98-107) Carbon Dioxide Level 34 mmol/L (21-32) Anion Gap 7 (6-14) Blood Urea Nitrogen 38 mg/dL (7-20) Creatinine 1.7 mg/dL (0.6-1.0) Estimated GFR (Cockcroft-Gault) 35.5 Glucose Level 89 mg/dL (70-99) Calcium Level 10.1 mg/dL (8.5-10.1) Phosphorus Level 2.8 mg/dL (2.6-4.7) Magnesium Level 2.1 mg/dL (1.8-2.4) Albumin 3.2 g/dL (3.4-5.0) Glucose (Fingerstick) 188 mg/dL (70-99) Laboratory Tests Test 09/10/18 16:44 09/10/18 22:24 09/11/18 07:42 09/11/18 09:24 Glucose (Fingerstick) 156 mg/dL (70-99) 162 mg/dL (70-99) 91 mg/dL (70-99) White Blood Count 7.8 x10^3/uL (4.0-11.0) Red Blood Count 4.00 x10^6/uL (3.50-5.40) Hemoglobin 11.7 g/dL (12.0-15.5) Hematocrit 36.5 % (36.0-47.0) Mean Corpuscular Volume 91 fL (79-100) Mean Corpuscular Hemoglobin 29 pg (25-35) Mean Corpuscular Hemoglobin Concent 32 g/dL (31-37) Red Cell Distribution Width 14.5 % (11.5-14.5) Platelet Count 233 x10^3/uL (140-400) Neutrophils (%) (Auto) 64 % (31-73) Lymphocytes (%) (Auto) 26 % (24-48) Monocytes (%) (Auto) 7 % (0-9) Eosinophils (%) (Auto) 2 % (0-3) Basophils (%) (Auto) 0 % (0-3) Neutrophils # (Auto) 5.0 x10^3uL (1.8-7.7) Lymphocytes # (Auto) 2.0 x10^3/uL (1.0-4.8) Monocytes # (Auto) 0.6 x10^3/uL (0.0-1.1) Eosinophils # (Auto) 0.2 x10^3/uL (0.0-0.7) Basophils # (Auto) 0.0 x10^3/uL (0.0-0.2) Sodium Level 143 mmol/L (136-145) Potassium Level 4.1 mmol/L (3.5-5.1) Chloride Level 102 mmol/L (98-107) Carbon Dioxide Level 34 mmol/L (21-32) Anion Gap 7 (6-14) Blood Urea Nitrogen 38 mg/dL (7-20) Creatinine 1.7 mg/dL (0.6-1.0) Estimated GFR (Cockcroft-Gault) 35.5 Glucose Level 89 mg/dL (70-99) Calcium Level 10.1 mg/dL (8.5-10.1) Phosphorus Level 2.8 mg/dL (2.6-4.7) Magnesium Level 2.1 mg/dL (1.8-2.4) Albumin 3.2 g/dL (3.4-5.0) Test 09/11/18 11:42 Glucose (Fingerstick) 188 mg/dL (70-99) Medications Current Medications Ondansetron HCl (Zofran Odt) 4 mg 1X ONCE PO Last administered on 09/06/18at 16:37; Start 09/06/18 at 16:30; Stop 09/06/18 at 16:31; Status DC Acetaminophen/ Hydrocodone Bitart (Lortab 7.5/325) 1 tab 1X ONCE PO Last administered on 09/06/18at 16:37; Start 09/06/18 at 16:30; Stop 09/06/18 at 16:31; Status DC Insulin Human Lispro (HumaLOG VIAL) 5 unit 1X ONCE SQ ; Start 09/06/18 at 16:45; Stop 09/06/18 at 16:46; Status UNV Insulin Human Regular (HumuLIN R VIAL) 5 unit 1X ONCE IV ; Start 09/06/18 at 16:45; Stop 09/06/18 at 16:46; Status DC Insulin Human Regular (HumuLIN R VIAL) 5 unit 1X ONCE SQ Last administered on 09/06/18at 17:17; Start 09/06/18 at 16:45; Stop 09/06/18 at 16:48; Status DC Fentanyl Citrate (Fentanyl 2ml Vial) 25 mcg 1X ONCE IM Last administered on 09/06/18at 18:31; Start 09/06/18 at 18:15; Stop 09/06/18 at 18:16; Status DC Sodium Chloride 1,000 ml @ 1,000 mls/hr 1X ONCE IV Last administered on 09/06/18 19:29; Start 09/06/18 at 19:00; Stop 09/06/18 at 19:59; Status DC Ondansetron HCl (Zofran) 4 mg PRN Q8HRS PRN IV NAUSEA/VOMITING Last administered on 09/07/18at 13:08; Start 09/06/18 at 20:00; Stop 09/07/18 at 19:59; Status DC Morphine Sulfate (Morphine Sulfate) 2 mg PRN Q2HR PRN IV PAIN Last administered on 09/06/18 23:48; Start 09/06/18 at 20:00; Stop 09/07/18 at 19:59; Status DC Potassium Chloride (Klor-Con) 20 meq 1X ONCE PO Last administered on 09/06/18 20:42; Start 09/06/18 at 20:45; Stop 09/06/18 at 20:46; Status DC Insulin Human Lispro (HumaLOG) 0-5 UNITS TIDWMEALS SQ ; Start 09/07/18 at 08:00; Stop 09/07/18 at 08:00; Status DC Dextrose (Dextrose 50%-Water Syringe) 12.5 gm PRN Q15MIN PRN IV SEE COMMENTS; Start 09/06/18 at 20:45; Status Cancel Acetaminophen/ Hydrocodone Bitart (Lortab 5/325) 1 tab PRN Q4HRS PRN PO PAIN Last administered on 09/11/18 10:52; Start 09/06/18 at 21:45 Potassium Chloride (Klor-Con) 40 meq 1X ONCE PO Last administered on 09/06/18at 22:40; Start 09/06/18 at 22:00; Stop 09/06/18 at 22:01; Status DC Potassium Chloride (Klor-Con) 20 meq DAILYWBKFT PO Last administered on 09/11/18 09:18; Start 09/07/18 at 08:00 Amlodipine Besylate (Norvasc) 10 mg DAILY PO Last administered on 09/08/18 10:43; Start 09/07/18 at 09:00; Stop 09/09/18 at 15:32; Status DC Aspirin (Ecotrin) 81 mg DAILY PO Last administered on 09/11/18 09:18; Start 09/07/18 at 09:00 Atorvastatin Calcium (Lipitor) 40 mg HS PO Last administered on 09/10/18 20:04; Start 09/07/18 at 21:00 Gabapentin (Neurontin) 100 mg BID PO ; Start 09/06/18 at 22:00; Status Cancel Metoprolol Succinate (Toprol Xl) 1,875 mg DAILY PO ; Start 09/07/18 at 09:00; Status UNV Oxybutynin Chloride (Ditropan) 10 mg HS PO Last administered on 09/10/18 20:04; Start 09/06/18 at 22:00 Sertraline HCl (Zoloft) 50 mg DAILY PO Last administered on 09/11/18 09:18; Start 09/07/18 at 09:00 Donepezil HCl (Aricept) 10 mg QHS PO Last administered on 09/10/18 20:05; Start 09/06/18 at 22:00 Non-Formulary Medication (Insulin Aspart (Novolog Flexpen)) TIDWMEALS SQ ; St art 09/07/18 at 08:00; Status UNV Insulin Glargine (Lantus) 40 units QHS SQ Last administered on 09/10/18 22:31; Start 09/06/18 at 22:00 Metolazone (Zaroxolyn) 2.5 mg DAILY PO Last administered on 09/11/18 09:18; Start 09/07/18 at 09:00 Pioglitazone HCl (Actos) 30 mg DAILY PO Last administered on 09/11/18 09:18; Start 09/07/18 at 09:00 Insulin Human Lispro (HumaLOG) 0-9 UNITS TIDWMEALS SQ Last administered on 09/09/18 17:29; Start 09/07/18 at 08:00 Dextrose (Dextrose 50%-Water Syringe) 12.5 gm PRN Q15MIN PRN IV SEE COMMENTS; Start 09/06/18 at 21:45 Albuterol/ Ipratropium (Duoneb) 3 ml RTQID NEB Last administered on 09/11/18at 12:16; Start 09/07/18 at 08:00 Enoxaparin Sodium (Lovenox Per Pharmacy Prophylaxis Dosing) 1 each PRN DAILY PRN MC SEE COMMENTS; Start 09/06/18 at 21:45 Magnesium Sulfate 50 ml @ 25 mls/hr 1X ONCE IV Last administered on 09/06/18at 22:51; Start 09/06/18 at 23:00; Stop 09/07/18 at 00:59; Status DC Enoxaparin Sodium (Lovenox 40mg Syringe) 40 mg Q24H SQ Last administered on 09/10/18at 22:32; Start 09/06/18 at 22:00 Metoprolol Succinate (Toprol Xl) 75 mg DAILY PO Last administered on 09/11/18at 09:18; Start 09/07/18 at 09:00 Gabapentin (Neurontin) 300 mg BID PO Last administered on 09/11/18 09:18; Start 09/06/18 at 23:00 Diclofenac Sodium (Voltaren) 1 yudy BID TP Last administered on 09/11/18 09:19; Start 09/07/18 at 10:00 Magnesium Sulfate 50 ml @ 25 mls/hr PRN DAILY PRN IV for Mag < 1.7 on am labs Last administered on 09/07/18at 17:22; Start 09/07/18 at 13:15 Insulin Human Lispro (HumaLOG) 5 units 1X ONCE SQ Last administered on 09/07/18at 23:01; Start 09/07/18 at 22:30; Stop 09/07/18 at 22:31; Status DC Methylprednisolone Acetate (DEPO-Medrol 40MG VIAL) 40 mg 1X ONCE IM ; Start 09/09/18 at 09:15; Stop 09/09/18 at 09:16; Status DC Bupivacaine HCl (Sensorcaine-Mpf 0.25%) 10 ml 1X ONCE IJ ; Start 09/09/18 at 09:15; Stop 09/09/18 at 09:16; Status DC Amlodipine Besylate (Norvasc) 5 mg DAILY PO Last administered on 09/11/18 09:18; Start 09/10/18 at 09:00 Bisacodyl (Dulcolax Supp) 10 mg PRN DAILY PRN [place] CONSTIPATION Last administered on 09/10/18at 18:13; Start 09/10/18 at 16:00 Active Scripts Active Klor-Con M20 (Potassium Chloride) 20 Meq Tab.er.prt 20 Meq PO DAILYWBKFT 10 Days Amlodipine Besylate 10 Mg Tablet 5 Mg PO DAILY 30 Days Lasix (Furosemide) 40 Mg Tablet 1 Tab PO BID Hydrocodone-Apap 5-325 (Hydrocodone Bit/Acetaminophen) 1 Each Tablet 1 Tab PO PRN Q4HRS PRN 7 Days Novolog Flexpen (Insulin Aspart) 100 Unit/1 Ml Insuln.pen 0 Units SQ TIDWMEALS 30 Days Reported Gabapentin (Gabapentin) 300 Mg Capsule 300 Mg PO BID Metoprolol Succinate ( Xl ) (Metoprolol Succinate) 25 Mg Tab.er.24h 3 Tab PO DAILY Lasix (Furosemide) 40 Mg Tablet 1 Tab PO PRN DAILY PRN Give 40 mg PO Lasix PRN if pt gains 2 lbs in 1 day or 5 lbs in 1 week; if pt also shows signs of CHF exacerbation Losartan Potassium 50 Mg Tablet 50 Mg PO DAILY Metolazone 2.5 Mg Tablet 2.5 Mg PO DAILY Oxybutynin Chloride 5 Mg Tablet 10 Mg PO HS Levemir Flextouch (Insulin Detemir) 100 Unit/1 Ml Insuln.pen 40 Unit SQ HS Pioglitazone Hcl 30 Mg Tablet 30 Mg PO DAILY Zoloft (Sertraline Hcl) 50 Mg Tablet 1 Tab PO DAILY Atorvastatin Calcium 40 Mg Tablet 40 Mg PO HS Aspirin Ec (Aspirin) 81 Mg Tablet.dr 81 Mg PO Amlodipine Besylate 10 Mg Tablet 10 Mg PO DAILY Donepezil Hcl 10 Mg Tablet 10 Mg PO HS Vitals/I & O Vital Sign - Last 24 Hours 09/10/18 09/10/18 09/10/18 09/10/18 15:00 16:19 19:00 19:28 Temp 97.9 98.4 97.9 98.4 Pulse 65 67 Resp 18 18 B/P (MAP) 137/64 (88) 161/66 (97) Pulse Ox 95 94 95 97 O2 Delivery Room Air Room Air Room Air Room Air 09/10/18 09/10/18 09/11/18 09/11/18 20:00 23:00 03:00 07:00 Temp 98.5 98.4 98.6 98.5 98.4 98.6 Pulse 69 65 63 Resp 18 16 18 B/P (MAP) 126/60 (82) 159/62 (94) 154/60 (91) Pulse Ox 95 96 94 O2 Delivery Nasal Cannula Room Air Room Air Room Air O2 Flow Rate 2.0 09/11/18 09/11/18 09/11/1809/11/19 07:46 08:00 09:18 09:18 Pulse 63 63 B/P (MAP) 154/60 154/60 Pulse Ox 96 O2 Delivery Room Air Room Air 09/11/18 09/11/18 09/11/18 09/11/18 10:52 11:00 12:00 12:17 Temp 98.0 98.0 Pulse 57 Resp 18 B/P (MAP) 154/64 (94) Pulse Ox 99 99 O2 Delivery Room Air Room Air Room Air Room Air Intake and Output 09/10/18 09/10/18 09/11/18 15:00 23:00 07:00 Intake Total 600 ml 300 ml Balance 600 ml 300 ml TINO FARLEY MD September 11, 2018 12:23
--- NOTE | 2018-09-11 13:03 | PDOC ---
SUBJECTIVE ROS No complaints OBJECTIVE Vital Signs Vital Signs Date Time Temp Pulse Resp B/P (MAP) Pulse Ox O2 Delivery O2 Flow Rate FiO2 09/11/18 12:17 99 Room Air 09/11/18 11:00 98.0 57 18 154/64 (94) 98.0 09/10/18 20:00 2.0 I & 0 Intake and Output 09/11/18 07:00 Intake Total 900 ml Balance 900 ml Intake Oral 900 ml # Voids 5 PHYSICAL EXAM Physical Exam General Appearance: Awake Alert Oriented x 3 In no visible Distress Eyes: VIsion Unchanged Conjunctiva Normal, somewhat exopthalmos cannot be ruled out EN: No EN Drainage Mucous Memb. moist Neck: no JVD min JVP Supple no Thyromegaly CVS: S1 S2 soft Murmur No Gallop No Rub none Edema Resp: no Rales no Rhonchi no Acc. Muscle use GI: BAS +ve NO Bruit Non Tender Non Distended : no CVA tenderness; no Suprapubic Tenderness SKIN: no Rashes Breast Exam deferred Mu.Sk: Adequate ROM no Muscle Atrophy Heme: Unable to palpate Obvious LAD no Splenomegaly NEURO: Good Strength and Tone Cranial Nerves II - XII grossly intact Psych: not Depressed no Active hallucination DIAGNOSIS/ASSESSMENT DIAGNOSIS/ASSESSMENT Assessment & Plan JENNA - Mild worsening of renal function form baseline at presentation Improving slowly E-Lytes and acid base stable On metolazone Chronic kidney disease stage III: Presumably diabetic hypertensive nephrosclerosis This may be her new baseline She is established with me with me as an outpatient, keep the follow up appt Hypomagnesemia: Replace if low Hypokalemia Normal Today COMMENT/RELEVANT DATA Meds Current Medications Medications (Trade) Dose Ordered Sig/Blue Start Time Stop Time Status Last Admin Dose Admin Acetaminophen/ Hydrocodone Bitart (Lortab 5/325) 1 tab PRN Q4HRS PRN 09/06/18 21:45 09/11/18 10:52 1 TAB Acetaminophen/ Hydrocodone Bitart (Lortab 7.5/325) 1 tab 1X ONCE 09/06/18 16:30 09/06/18 16:31 DC 09/06/18 16:37 1 TAB Albuterol/ Ipratropium (Duoneb) 3 ml RTQID 09/07/18 08:00 09/11/18 12:16 3 ML Amlodipine Besylate (Norvasc) 5 mg DAILY 09/10/18 09:00 09/11/18 09:18 5 MG Aspirin (Ecotrin) 81 mg DAILY 09/07/18 09:00 09/11/18 09:18 81 MG Atorvastatin Calcium (Lipitor) 40 mg HS 09/07/18 21:00 09/10/18 20:04 40 MG Bisacodyl (Dulcolax Supp) 10 mg PRN DAILY PRN 09/10/18 16:00 09/10/18 18:13 10 MG Bupivacaine HCl (Sensorcaine-Mpf 0.25%) 10 ml 1X ONCE 09/09/18 09:15 09/09/18 09:16 DC Dextrose (Dextrose 50%-Water Syringe) 12.5 gm PRN Q15MIN PRN 09/06/18 21:45 Diclofenac Sodium (Voltaren) 1 yudy BID 09/07/18 10:00 09/11/18 09:19 1 YUDY Donepezil HCl (Aricept) 10 mg QHS 09/06/18 22:00 09/10/18 20:05 10 MG Enoxaparin Sodium (Lovenox 40mg Syringe) 40 mg Q24H 09/06/18 22:00 09/10/18 22:32 40 MG Enoxaparin Sodium (Lovenox Per Pharmacy Prophylaxis Dosing) 1 each PRN DAILY PRN 09/06/18 21:45 Fentanyl Citrate (Fentanyl 2ml Vial) 25 mcg 1X ONCE 09/06/18 18:15 09/06/18 18:16 DC 09/06/18 18:31 25 MCG Gabapentin (Neurontin) 300 mg BID 09/06/18 23:00 09/11/18 09:18 300 MG Insulin Glargine (Lantus) 40 units QHS 09/06/18 22:00 09/10/18 22:31 40 UNITS Insulin Human Lispro (HumaLOG VIAL) 5 unit 1X ONCE 09/06/18 16:45 09/06/18 16:46 UNV Insulin Human Lispro (HumaLOG) 5 units 1X ONCE 09/07/18 22:30 09/07/18 22:31 DC 09/07/18 23:01 5 UNITS Insulin Human Regular (HumuLIN R VIAL) 5 unit 1X ONCE 09/06/18 16:45 09/06/18 16:48 DC 09/06/18 17:17 5 UNIT Magnesium Sulfate 50 ml @ 25 mls/hr PRN DAILY PRN 09/07/18 13:15 09/07/18 17:22 25 MLS/HR Methylprednisolone Acetate (DEPO-Medrol 40MG VIAL) 40 mg 1X ONCE 09/09/18 09:15 09/09/18 09:16 DC Metolazone (Zaroxolyn) 2.5 mg DAILY 09/07/18 09:00 09/11/18 09:18 2.5 MG Metoprolol Succinate (Toprol Xl) 75 mg DAILY 09/07/18 09:00 09/11/18 09:18 75 MG Morphine Sulfate (Morphine Sulfate) 2 mg PRN Q2HR PRN 09/06/18 20:00 09/07/18 19:59 DC 09/06/18 23:48 2 MG Non-Formulary Medication (Insulin Aspart (Novolog Flexpen)) TIDWMEALS 09/07/18 08:00 UNV Ondansetron HCl (Zofran Odt) 4 mg 1X ONCE 09/06/18 16:30 09/06/18 16:31 DC 09/06/18 16:37 4 MG Ondansetron HCl (Zofran) 4 mg PRN Q8HRS PRN 09/06/18 20:00 09/07/18 19:59 DC 09/07/18 13:08 4 MG Oxybutynin Chloride (Ditropan) 10 mg HS 09/06/18 22:00 09/10/18 20:04 10 MG Pioglitazone HCl (Actos) 30 mg DAILY 09/07/18 09:00 09/11/18 09:18 30 MG Potassium Chloride (Klor-Con) 20 meq DAILYWBKFT 09/07/18 08:00 09/11/18 09:18 20 MEQ Sertraline HCl (Zoloft) 50 mg DAILY 09/07/18 09:00 09/11/18 09:18 50 MG Sodium Chloride 1,000 ml @ 1,000 mls/hr 1X ONCE 09/06/18 19:00 09/06/18 19:59 DC 09/06/18 19:29 1,000 MLS/HR Lab Laboratory Tests Test 09/10/18 16:44 09/10/18 22:24 09/11/18 07:42 09/11/18 09:24 Glucose (Fingerstick) 156 mg/dL (70-99) 162 mg/dL (70-99) 91 mg/dL (70-99) White Blood Count 7.8 x10^3/uL (4.0-11.0) Red Blood Count 4.00 x10^6/uL (3.50-5.40) Hemoglobin 11.7 g/dL (12.0-15.5) Hematocrit 36.5 % (36.0-47.0) Mean Corpuscular Volume 91 fL (79-100) Mean Corpuscular Hemoglobin 29 pg (25-35) Mean Corpuscular Hemoglobin Concent 32 g/dL (31-37) Red Cell Distribution Width 14.5 % (11.5-14.5) Platelet Count 233 x10^3/uL (140-400) Neutrophils (%) (Auto) 64 % (31-73) Lymphocytes (%) (Auto) 26 % (24-48) Monocytes (%) (Auto) 7 % (0-9) Eosinophils (%) (Auto) 2 % (0-3) Basophils (%) (Auto) 0 % (0-3) Neutrophils # (Auto) 5.0 x10^3uL (1.8-7.7) Lymphocytes # (Auto) 2.0 x10^3/uL (1.0-4.8) Monocytes # (Auto) 0.6 x10^3/uL (0.0-1.1) Eosinophils # (Auto) 0.2 x10^3/uL (0.0-0.7) Basophils # (Auto) 0.0 x10^3/uL (0.0-0.2) Sodium Level 143 mmol/L (136-145) Potassium Level 4.1 mmol/L (3.5-5.1) Chloride Level 102 mmol/L (98-107) Carbon Dioxide Level 34 mmol/L (21-32) Anion Gap 7 (6-14) Blood Urea Nitrogen 38 mg/dL (7-20) Creatinine 1.7 mg/dL (0.6-1.0) Estimated GFR (Cockcroft-Gault) 35.5 Glucose Level 89 mg/dL (70-99) Calcium Level 10.1 mg/dL (8.5-10.1) Phosphorus Level 2.8 mg/dL (2.6-4.7) Magnesium Level 2.1 mg/dL (1.8-2.4) Albumin 3.2 g/dL (3.4-5.0) Test 09/11/18 11:42 Glucose (Fingerstick) 188 mg/dL (70-99) Results All relevant outside records, renal labs, imaging studies, telemetry/EKG's were reviewed. DIANA BERMUDEZ MD September 11, 2018 13:02
--- NOTE | 2018-09-11 13:43 | NUR ---
pt is discharged home with home health at 1325 via wheelchair via this RN and ANNE Martinez. pt is in stable condition. pt has all belongings with her. pt sister is taking pt home. pt states she has a walker to use at home. discharge instructions given to pt and sister and they stated they had no further questions for me.
== END 2018-09-11 13:25 | disposition home health service (06) | DRG 604 ==
LOC: ER 16:14 → 4 NORTH 19:02
PROVIDERS: ADMIT Internal Medicine; ATTEND Internal Medicine
DX: S00.03XA Contusion of scalp, initial encounter (principal); N17.0 Acute kidney failure with tubular necrosis; I50.32 Chronic diastolic (congestive) heart failure; I13.0 Hypertensive heart and chronic kidney disease with heart failure and stage 1 through stage 4 chronic kidney disease, or unspecified chronic kidney disease; G45.9 Transient cerebral ischemic attack, unspecified; N18.4 Chronic kidney disease, stage 4 (severe); E87.6 Hypokalemia; E11.22 Type 2 diabetes mellitus with diabetic chronic kidney disease; E66.9 Obesity, unspecified; I48.0 Paroxysmal atrial fibrillation; E78.5 Hyperlipidemia, unspecified; E86.0 Dehydration; F41.9 Anxiety disorder, unspecified; F32.9 Major depressive disorder, single episode, unspecified; E11.42 Type 2 diabetes mellitus with diabetic polyneuropathy; E11.65 Type 2 diabetes mellitus with hyperglycemia; F03.90 Unspecified dementia, unspecified severity, without behavioral disturbance, psychotic disturbance, mood disturbance, and anxiety; E78.00 Pure hypercholesterolemia, unspecified; G47.33 Obstructive sleep apnea (adult) (pediatric); M47.9 Spondylosis, unspecified; M53.3 Sacrococcygeal disorders, not elsewhere classified; E11.51 Type 2 diabetes mellitus with diabetic peripheral angiopathy without gangrene; E66.01 Morbid (severe) obesity due to excess calories; I16.0 Hypertensive urgency; W07.XXXA Fall from chair, initial encounter; S20.229A Contusion of unspecified back wall of thorax, initial encounter; Y93.89 Activity, other specified; Y92.89 Other specified places as the place of occurrence of the external cause; Z68.37 Body mass index [BMI] 37.0-37.9, adult; Z86.73 Personal history of transient ischemic attack (TIA), and cerebral infarction without residual deficits; Z90.710 Acquired absence of both cervix and uterus; Z82.49 Family history of ischemic heart disease and other diseases of the circulatory system; Z87.440 Personal history of urinary (tract) infections; Y99.8 Other external cause status; Z68.31 Body mass index [BMI] 31.0-31.9, adult; S06.0X0A Concussion without loss of consciousness, initial encounter
CPT/HCPCS: 36415; 70450; 72125; 72128; 72192; 72220; 80048; 80053; 80069; 82550; 82962; 83036; 83735; 85025; 85610; 85730; 94640; 94760; 96360; 96372; J1030; J1650; J1815; J2270; J2405; J3010; J3475; J3490; J7030; J7620; Q0162; 97110; 97116; 97535; 99285-25

== ENCOUNTER → 2018-09-26 | Outpatient (CLI) | payer OTHER ==
[2018-09-11 11:00] VITALS: BP 154/64
[~2018-09-26] MED LIST changes: +GABA300C18 PO; +POTA20TA4 PO; +REGADENOSON 0.4 MG/5 ML DISP.SYRIN. IV ONE
--- NOTE | 2018-09-26 13:26 | RAD ---
MR#: [id number] Date of Study: 09/26/2018 Ordering Physician: MILTON CASTANEDA Referring Physician: DANK CREWS Tech: RT Wally (R) (N) APPROVED REPORT Test Type: Pharmacological Stress Nurse/Tech: Sunny Allen RN Test Indications: chronic diastolic heart failure Cardiac History: heart failure, HTN, DM Medications: See Electronic Medical Record Medical History: See Electronic Medical Record Resting ECG: SR Resting Heart Rate: 52 bpm Resting Blood Pressure: 177/66mmHg Pretest Chest Pain: None Nurse/Tech Notes Lungs CTA, S1S2 Consent: The procedure was explained to the patient in lay terms. Informed consent was witnessed. Curt eout was entered into [facility]. History and Stress Test performed by Sunny Allen RN Pharm. Details Pharmacologic stress testing was performed using 0.4mg per 5ml of regadenoson given intravenously ove r 7-10 seconds. Stress Symptoms No chest pain or symptoms. POST EXERCISE Reason for Termination: Infusion complete Max HR: 83 bpm Max Blood Pressure: 179/66mmHg Blood Pressure response to exercise: Normal blood pressure response during stress. Heart Rate response to exercise: normal response Chest Pain: No. Arrhythmia: Yes. PVC ST Change: No. INTERPRETATION Stress EKG Conclusion: Baseline EKG showed sinus rhythm. No ischemic changes at peak stress. No arr hythmias. Imaging Protocol IMAGE PROTOCOL: Rest Tc-99m/stress Tc-99m 1 day Rest: Stress: Viability: Radiopharm.Tc99m [id number] Sestamibi Dose10.9mCi 33mCi Duration 13min. 13min. Img Date 09/26/2018 09/26/2018 Inj-Img [id number]. 60min. Rest Admin Site:IV - Right AntecubitalAdministrator:RT Wally (Josiane)(N) Stress Admin Site: IV - Right AntecubitalAdministrator: NASRIN Hanna STRESS DATA End Diast. Vol.137.0mlLVEDV index BSA64.0ml End Syst. Vol.55.0mlLVESV index BSA26.0ml Myocardial Ntts006.0gEject. Vkgtjtaq41.0% Stress Scores Regional WT0.00Summed WT4.00 Regional WM0.00Summed WM15.00 Study quality was good. Left Ventricular size was Normal at Rest and Stress. Lung uptake was . Left Ventricular ejection fraction is 60%. The rest and stress images show normal perfusion, normal contraction and thickening. LV Perf. Quant 17 Seg. SSS2.00 17 Seg. SRS6.00 17 Seg. SDS0.00 Stress Defect Extent (% LAD)6.90Rest Defect Extent (% LAD)18.80Rev. Defect Extent (% LAD)0.00 Stress Defect Extent (% LCX) 0.00Rest Defect Extent (% LCX)8.80Rev. Defect Extent (% LCX)0.00 Stress Defect Extent (% RCA)0.00Rest Defect Extent (% RCA)0.00Rev. Defect Extent (% RCA)0.00 Stress Defect Extent (% MICHAEL)2.40Rest Defect Extent (% MICHAEL)11.30Rev. Defect Extent (% MICHAEL)0.00 Conclusion 1. Regadenoson cardioisotope stress test did not show any evidence of ischemia or infarct. 2. Normal left ventricular systolic function with ejection fraction calculated at 60%. 3. Low risk for cardiac events. Signed by : Milton Castaneda, Electronically Approved : 09/26/2018 13:25:45
== END | disposition home or self-care (01) ==
LOC: NM 09:12
PROVIDERS: ATTEND Internal Medicine Cardiovascular Disease
DX: I11.0 Hypertensive heart disease with heart failure (principal); I50.32 Chronic diastolic (congestive) heart failure; E11.9 Type 2 diabetes mellitus without complications
CPT/HCPCS: 78452; 93017; A9500; J2785

== ENCOUNTER 2020-04-13 15:56 | Emergency (ER) | payer MEDICARE ==
[~2020-04-13] VITALS: Ht 175.3 cm; Wt 95.0 kg
[~2020-04-13 15:56] MED LIST changes: -ACET500T55 PO; +ACET500T56 PO; +AMLO-186 PO; +AMLO-187 PO; -AMLO10TA8 PO; -AMLO5TAB10 PO; -ASPI-612 PO; +ASPI-886 PO; -DICL100G18 TP; +DICL100G54 TP; -GLIM2TAB2 PO; +GLIM2TAB7 PO; +LEVO250T7 PO; +OXYB5TAB10 PO; -OXYB5TAB7 PO; -POTA10TA12 PO; +POTASSIUM CHLO10 ME1 PO; -PREG50CA PO; +PREG50CA91 PO; +PROVENTIL HFA6.7 GM IH; -REGADENOSON 0.4 MG/5 ML DISP.SYRIN. IV ONE; +TRAM50TA PO
[2020-04-13 17:41] LABS: BASO % 0 % (0-3); EOS # 0.1 x10^3/uL (0.0-0.7); EOS % 1 % (0-3); HEMATOCRIT 40.7 % (36.0-47.0); HEMOGLOBIN 13.7 g/dL (12.0-15.5); LYMPH # 1.5 x10^3/uL (1.0-4.8); LYMPH % 14 % (24-48); MEAN CORPUSCULAR HEMOGLOBIN 30 pg (25-35); MEAN CORPUSCULAR HGB CONC 34 g/dL (31-37); MEAN CORPUSCULAR VOLUME 91 fL (79-100); MONO # 0.6 x10^3/uL (0.0-1.1); MONO % 5 % (0-9); NEUT # 8.6 x10^3/uL (1.8-7.7); NEUT % 80 % (31-73); PLATELET COUNT 289 x10^3/uL (140-400); RED CELL DISTRIBUTION WIDTH 13.6 % (11.5-14.5); WHITE BLOOD COUNT 10.8 x10^3/uL (4.0-11.0)
[2020-04-13 17:46] LABS: BILIRUBIN,URINE NEGATIVE (NEG); CLARITY,URINE CLEAR; COLOR,URINE YELLOW; NITRITE,URINE NEGATIVE (NEG); PROTEIN,URINE 100 mg/dL (NEG-TRACE); UROBILINOGEN,URINE 0.2 mg/dL (0.2 mg/dL)
[2020-04-13 17:53] LABS: PROTHROMBIN TIME PATIENT 13.7 SEC (11.7-14.0)
--- NOTE | 2020-04-13 18:00 | RAD ---
Exam: CT head and cervical spine without contrast INDICATION: Weakness, fall TECHNIQUE: Sequential axial images through the head and cervical spine were obtained without the administration of IV contrast. Comparisons: 12/01/2019 FINDINGS: Head: No focal parenchymal lesion or hemorrhage is identified. There is no midline shift or sulcal effacement. Patchy hypodensity in the periventricular white matter, similar prior exam. No acute vascular territory infarction is identified. Randolph-white distinction is preserved. The ventricular system is within normal limits without compression hydrocephalus. The basal cisterns are well maintained. The visualized portions of the paranasal sinuses and mastoid air cells are well-pneumatized. No acute fractures. Cervical spine: Laminectomy changes noted from C3 to 3 to C5. Posterior fusion hardware is noted in the cervical spine. Straightening of the cervical spine which may be positional. Vertebral body heights are well-maintained. Fracture to the cervical spine is not identified. Heterogenous enlarged appearance of the left thyroid gland. IMPRESSION: 1. No acute intracranial abnormality. 2. Negative CT C-spine for acute traumatic injury. 3. Heterogenous appearance of the left thyroid gland. Further evaluation with nonemergent/outpatient ultrasound is recommended Exposure: One or more of the following in the visualized dose reduction techniques were utilized for this examination: 1. Automated exposure control 2. Adjustment of the MA and/or KV according to patient size Use of iterative of reconstructive technique Electronically signed by: Tito Antonio MD (04/13/2020 5:57 PM) [facility]
[2020-04-13 18:02] LABS: BACTERIA,URINE MANY /HPF (0-FEW); HYALINE CASTS, URINE FEW /HPF; WBC,URINE >40 /HPF (0-4)
[2020-04-13 18:09] LABS: CALCIUM 10.7 mg/dL (8.5-10.1); CREATININE 1.5 mg/dL (0.6-1.0); GFR 40.9; POTASSIUM 4.1 mmol/L (3.5-5.1)
--- NOTE | 2020-04-13 18:14 | RAD ---
EXAM: Chest, single view. HISTORY: This. Fall. COMPARISON: 12/01/2019 FINDINGS: A frontal view of the chest is obtained. There is no infiltrate, pleural effusion or pneumothorax. There is a stable prominent cardiac silhouette. There is cervical spinal fusion instrumentation. IMPRESSION: No acute pulmonary finding. Electronically signed by: Amy Nayak MD (04/13/2020 6:12 PM) [facility]
[2020-04-13 18:21] LABS: CREATINE KINASE 77 U/L (26-192)
--- NOTE | 2020-04-13 18:29 | PHYS DOC ---
Past Medical History Past Medical History: Anxiety, CHF, Dementia, Depression, Diabetes-Type II, High Cholesterol, Hypertension, Renal Disease, TIA, Other Additional Past Medical Histor: OSTEOARTHRITIS, OBSTRUCTIVE SLEEP APNEA Past Surgical History: Other Additional Past Surgical Histo: NECK SURGERY, FEM POP Smoking Status: Never Smoker Alcohol Use: None Drug Use: None General Adult EDM: Chief Complaint: WEAKNESS/GENERALIZED HPI: HPI: Patient is a 75 year old female who comes to the emergency department stating that she went to get her routine labs drawn and they told her they will no longer draw her labs and told her to come to the emergency department to have them drawn from here on out. Patient has a longstanding history of Alzheimer's dementia, she is currently oriented to only self at this time. Patient's sister who is at bedside is the primary historian per patient sister the patient was going to [facility] to have her iron TIBC iron sat ferritin hematocrit hemoglobin magnesium renal panel with GFR and PT/INR drawn for routine labs that her residential tech Dr. Brock had ordered. Upon arrival to [facility], the patient was turned away and told her insurance no longer covers her laboratory work there. The patient's sister called Dr. Brock who recommended she come to the emergency department to have her routine labs drawn. Patient sister states that while she is here in the emergency department she would like for her sister the patient to be evaluated for generalized weakness that she has been experiencing over the past 3 days in which she explains that she seems weaker than normal and has been more sleepier than usual. She states the patient usually ambulates with a walker and today when they were transferring her from the walker onto a chair, the patient had stumbled to the ground. The patient did not complain of any injury from this, and was able to get back up into the chair with assistance x2. The patient does not complain of any injuries to her upper or lower extremities. The patient does state that she did take her diabetes insulin prior to arrival and is feeling a little weaker and thinks that she should eat soon. The patient denies any fever or chills, visual changes, nasal congestion cough or shortness of breath. The patient states she does not have any chest pain or chest discomfort and does not feel any chest palpitations. Patient denies any abdominal pains, nausea, vomiting, diarrhea, she states she does have occasional constipation but is not sure if she is constipated at this time. Patient denies any urinary problems, denies any urinary pressure or urinary frequency. Patient denies any back pain. Patient denies skin rashes, headaches, focal weaknesses, or sensory changes. The patient denies any recent depression or anxiety, homicidal or suicidal ideation. The patient's primary historian agrees. Review of Systems: Review of Systems: Constitutional: Denies fever or chills. Eyes: Denies change in visual acuity. HENT: Denies nasal congestion or sore throat. Respiratory: Denies cough or shortness of breath. Cardiovascular: Denies chest pain or edema. GI: Denies abdominal pain, nausea, vomiting, bloody stools or diarrhea. : Denies dysuria. Musculoskeletal: Denies back pain or joint pain. Integument: Denies rash. Neurologic: Denies headache, focal weakness or sensory changes. Patient reports generalized increase in sleepiness and body weakness. Endocrine: Denies polyuria or polydipsia. Lymphatic: Denies swollen glands. Psychiatric: Denies depression or anxiety. Denies homicidal or suicidal ideation Heart Score: Risk Factors: Risk Factors: DM, Current or recent (<one month) smoker, HTN, HLP, family history of CAD, obesity. Risk Scores: Score 0 - 3: 2.5% MACE over next 6 weeks - Discharge Home Score 4 - 6: 20.3% MACE over next 6 weeks - Admit for Clinical Observation Score 7 - 10: 72.7% MACE over next 6 weeks - Early Invasive Strategies Current Medications: Patient's current updated med list is amlodipine 10 mg daily at noon, 81 mg aspirin at noon, atorvastatin 40 mg daily at bedtime, donepezil 10 mg nightly, losartan 50 mg daily at noon, magnesium 250 mg daily nightly, metoprolol 75 mg nightly, potassium 10 mEq daily at noon, sertraline 50 mg daily at noon, vitamin D 5000 IU daily at noon, NovoLog sliding scale insulin. Allergies: Allergies: Allergies Coded Allergies Type Severity Reaction Last Updated Verified No Known Drug Allergies 08/04/16 No Physical Exam: PE: Constitutional: Well developed, well nourished, no acute distress, non-toxic appearance. HENT: Normocephalic, atraumatic, bilateral external ears normal, oropharynx moist, no oral exudates, nose normal. Eyes: PERRLA, EOMI, conjunctiva normal, no discharge. Neck: Normal range of motion, no tenderness, supple, no stridor. Cardiovascular:Heart rate regular rhythm, no murmur Lungs & Thorax: Bilateral breath sounds clear to auscultation Abdomen: Bowel sounds normal, soft, no tenderness, no masses, no pulsatile masses. Skin: Warm, dry, no erythema, no rash. Back: No tenderness, no CVA tenderness. Extremities: No tenderness, no cyanosis, no clubbing, ROM intact, no edema. Neurologic: Alert and oriented X 1, alert to self only, this is normal for her as per her primary historian sister, normal motor function, normal sensory function, no focal deficits noted. Psychologic: Affect normal, judgement normal, mood normal. Current Patient Data: Labs: Laboratory Tests Test 04/13/20 17:03 White Blood Count 10.8 x10^3/uL (4.0-11.0) Red Blood Count 4.50 x10^6/uL (3.50-5.40) Hemoglobin 13.7 g/dL (12.0-15.5) Hematocrit 40.7 % (36.0-47.0) Mean Corpuscular Volume 91 fL (79-100) Mean Corpuscular Hemoglobin 30 pg (25-35) Mean Corpuscular Hemoglobin Concent 34 g/dL (31-37) Red Cell Distribution Width 13.6 % (11.5-14.5) Platelet Count 289 x10^3/uL (140-400) Neutrophils (%) (Auto) 80 % (31-73) H Lymphocytes (%) (Auto) 14 % (24-48) L Monocytes (%) (Auto) 5 % (0-9) Eosinophils (%) (Auto) 1 % (0-3) Basophils (%) (Auto) 0 % (0-3) Neutrophils # (Auto) 8.6 x10^3/uL (1.8-7.7) H Lymphocytes # (Auto) 1.5 x10^3/uL (1.0-4.8) Monocytes # (Auto) 0.6 x10^3/uL (0.0-1.1) Eosinophils # (Auto) 0.1 x10^3/uL (0.0-0.7) Basophils # (Auto) 0.0 x10^3/uL (0.0-0.2) Prothrombin Time 13.7 SEC (11.7-14.0) Prothrombin Time INR 1.1 (0.8-1.1) Activated Partial Thromboplast Time 31 SEC (24-38) Urine Collection Type U cath Urine Color Yellow Urine Clarity Clear Urine pH 7.0 (<5.0-8.0) Urine Specific [place] 1.015 (1.000-1.030) Urine Protein 100 mg/dL (NEG-TRACE) Urine Glucose (UA) Negative mg/dL (NEG) Urine Ketones (Stick) Negative mg/dL (NEG) Urine Blood Negative (NEG) Urine Nitrite Negative (NEG) Urine Bilirubin Negative (NEG) Urine Urobilinogen Dipstick 0.2 mg/dL (0.2 mg/dL) Urine Leukocyte Esterase Moderate (NEG) Urine RBC 1-2 /HPF (0-2) Urine WBC >40 /HPF (0-4) Urine Squamous Epithelial Cells Few /LPF Urine Bacteria Many /HPF (0-FEW) Urine Hyaline Casts Few /HPF Urine Mucus Mod /LPF Sodium Level 140 mmol/L (136-145) Potassium Level 4.1 mmol/L (3.5-5.1) Chloride Level 101 mmol/L (98-107) Carbon Dioxide Level 31 mmol/L (21-32) Anion Gap 8 (6-14) Blood Urea Nitrogen 17 mg/dL (7-20) Creatinine 1.5 mg/dL (0.6-1.0) H Estimated GFR (Cockcroft-Gault) 40.9 BUN/Creatinine Ratio 11 (6-20) Glucose Level 62 mg/dL (70-99) L Calcium Level 10.7 mg/dL (8.5-10.1) H Magnesium Level Pending Iron Level 75 ug/dL (50-170) Total Iron Binding Capacity 292 ug/dL (250-450) Iron Saturation 26 % (15-34) Ferritin Pending Total Bilirubin Pending Aspartate Amino Transferase (AST) Pending Alanine Aminotransferase (ALT) Pending Alkaline Phosphatase Pending Creatine Kinase 77 U/L (26-192) Creatine Kinase MB (Mass) < 0.5 ng/mL (0.0-3.6) Creatine Kinase MB Relative Index 0.6 % (0-4) Troponin I Quantitative < 0.017 ng/mL (0.000-0.055) C-Reactive Protein, Quantitative Pending IL-Vwz-F-Type Natriuretic Peptide 757 pg/mL (0-449) H Total Protein Pending Albumin Pending Albumin/Globulin Ratio Pending Laboratory Tests 04/13/20 17:03 Laboratory Tests 04/13/20 17:03 Vital Signs: Vital Signs Date Time Temp Pulse Resp B/P (MAP) Pulse Ox O2 Delivery O2 Flow Rate FiO2 04/13/20 16:45 97.7 53 18 211/88 (129) 95 Room Air 97.7 EKG: EKG: EKG performed at 1657 by ED nursing staff shows a normal sinus rhythm without ectopy heart rate of 63 bpm, MS interval 0.188, QTc interval 0.474, no STEMI, no ischemia, no ACS noted EKG interpreted by ED attending Dr. Olson. Radiology/Procedures: Radiology/Procedures: REASON: WEAKNESS, FALL PROCEDURE: PORTABLE CHEST 1V EXAM: Chest, single view. HISTORY: This. Fall. COMPARISON: 12/01/2019 FINDINGS: A frontal view of the chest is obtained. There is no infiltrate, pleural effusion or pneumothorax. There is a stable prominent cardiac silhouette. There is cervical spinal fusion instrumentation. IMPRESSION: No acute pulmonary finding. Electronically signed by: Xavier Elam MD (04/13/2020 6:12 PM) [facility] DICTATED and SIGNED BY: XAVIER ELAM MD DATE: 04/13/20 [id number] 0 STATUS: REG ER ORD. PHYSICIAN: CAYLA GOYAL APRN REASON: WEAKNESS, FALL PROCEDURE: CT HEAD AND CERVICAL SPINE WO Exam: CT head and cervical spine without contrast INDICATION: Weakness, fall TECHNIQUE: Sequential axial images through the head and cervical spine were obtained without the administration of IV contrast. Comparisons: 12/01/2019 FINDINGS: Head: No focal parenchymal lesion or hemorrhage is identified. There is no midline shift or sulcal effacement. Patchy hypodensity in the periventricular white matter, similar prior exam. No acute vascular territory infarction is identified. Radnolph-white distinction is preserved. The ventricular system is within normal limits without compression hydrocephalus. The basal cisterns are well maintained. The visualized portions of the paranasal sinuses and mastoid air cells are well-pneumatized. No acute fractures. Cervical spine: Laminectomy changes noted from C3 to 3 to C5. Posterior fusion hardware is noted in the cervical spine. Straightening of the cervical spine which may be positional. Vertebral body heights are well-maintained. Fracture to the cervical spine is not identified. Heterogenous enlarged appearance of the left thyroid gland. IMPRESSION: 1. No acute intracranial abnormality. 2. Negative CT C-spine for acute traumatic injury. 3. Heterogenous appearance of the left thyroid gland. Further evaluation with nonemergent/outpatient ultrasound is recommended Exposure: One or more of the following in the visualized dose reduction techniques were utilized for this examination: 1. Automated exposure control 2. Adjustment of the MA and/or KV according to patient size Use of iterative of reconstructive technique Electronically signed by: Tito Garcia MD (04/13/2020 5:57 PM) [facility] DI[facility]ATED and SIGNED BY: TITO GARCIA MD DATE: 04/13/20 [id number] 0 STATUS: REG ER ORD. PHYSICIAN: CAYLA GOYAL APRN REASON: SWELLING AND PAIN PROCEDURE: VENOUS LOWER EXT BILATERAL Exam: Bilateral lower extremity venous duplex study INDICATION: Leg swelling TECHNIQUE: Using a combination of real-time ultrasound imaging and color-flow and pulse Doppler imaging techniques along with graded compression and augmentation, duplex evaluation of the deep venous systems of bilateral lower extremity was performed. Multiple images were obtained. Findings: There is no sonographic evidence for deep venous thrombosis involving the visualized deep venous structures of the bilateral lower extremity. IMPRESSION: No acute DVT in the bilateral lower extremities. Electronically signed by: Tito Garcia MD (04/13/2020 11:18 PM) [facility] DICTATED and SIGNED BY: TITO GARCIA MD DATE: 04/13/20 [id number] 0 Course & Med Decision Making: Course & Med Decision Making Pertinent Labs and Imaging studies reviewed. (See chart for details) 75-year-old female presented emergency department with complaints of being sent here from [facility] because they no longer take her insurance to have her labs drawn. Patient does have a history of Alzheimer's dementia and is currently alert and oriented to self only. Patient sister is at bedside who is her chief historian and caregiver at home. Patient sister said that they did go to [facility] and they were told that her insurance no longer covers there so they called her residential tech Dr. Brock who recommended she come to the emergency department to have her labs drawn. All labs ordered by the patient's residential tech were drawn here in the ER today. The patient's sister stated that while she was here she thought she would mention that the patient has been more sleepy over the past 3 days and weaker than normal. The patient's sister states that the patient ambulates with a walker and when they were transferring her from a walker to the chair that she fell to the ground specifically she was lowered to the ground with assistance x2 because they had missed the chair during the pivot and sit maneuver. The patient denies any pains from this incident. Related to the patient's long standing history of Alzheimer's dementia, TIAs, CVAs, CHF, hypertension, and multiple other health conditions a work-up was started in the emergency department. A CT head and C-spine without related to fall, urine for UA and reflex, lab work to rule out infectious process or electrolyte imbalance. EKG and troponin labs pending at this time 1740 patient's glucose was 62, reexamined patient who had no change in mental status, patient was given food to eat. A fingerstick blood sugar was ordered to be done after patient had completed eating. Upon reexamination of the patient, patient's fingerstick blood sugar 128, patient appears to alert, however still only alert to self. Patient states that she feels better, however she states that her lower extremities hurt now, physical examination of lower extremities elicited pain to palpation of bilateral calves, there was no swelling of either lower extremity, no edema noted, dorsalis pedis and posterior tibial 2+ bilateral extremities, distal cap refill was less than 2 seconds. A sonogram was ordered to rule out venous embol us. lab technologist is currently at another facility, awaiting ski technician to arrive to perform study at this time. Patient was updated on wait for ultrasound, gave verbal understanding of this. Ultrasound was read negative for DVT bilaterally by house radiologist interpretation. Reviewed patient's labs, patient's urine is infected. Discussed findings with patient and patient's caregiver diagnosis of acute cystitis, will start first dose of Keflex 500 mg in emergency department today. Patient will be discharged home with prescription for Keflex 500 mg twice daily for the next 7 days. Discussed with patient need to call primary care physician to let him know about acute cystitis, discussed with patient prescription instructions, strict return to emergency department precautions. Patient and patient's caregiver gave verbal understanding of discharge home instructions, prescription and instructions, return to ER concerns, patient and patient's caregiver had no further questions or concerns, patient discharged home without incident. Chely Disclaimer: Chely Disclaimer: This electronic medical record was generated, in whole or in part, using a voice recognition dictation system. Departure Departure Impression: Primary Impression: UTI (urinary tract infection) Qualified Codes: N30.01 - Acute cystitis with hematuria Disposition: DC HOME SELF CARE/HOMELESS Condition: IMPROVED Referrals: STEPHEN SALGADO D.O. (PCP) Patient Instructions: Urinary Tract Infection Additional Instructions: Please take antibiotic prescription as directed, return to the emergency department for worsening symptoms or other concerns, please see your doctor this week. EMERGENCY DEPARTMENT GENERAL DISCHARGE INSTRUCTIONS Thank you for coming to [facility] Emergency Department (ED) today and trusting us with you care. We trust that you had a positive experience in our Emergency Department. If you wish to speak to the department management, you may call the Director at [phone]. YOUR FOLLOW UP INSTRUCTIONS ARE FOLLOWS: 1. Do you have a private Doctor? If you do not have a private doctor, please ask for a resource list of physicians or clinics that may be able to assist you with follow up care. 2. The Emergency Physicain has interpreted your x-rays. The X-Ray specialist will also review them. If there is a change in the findings, you will be notified in 48 hours when at all possible. 3. A lab test or culture has been done, your results will be reviewed and you will be notified if you need a change in treatment. ADDITIONAL INSTRUCTIONS AND INFORMATION: 1. Your care today has been supervised by a physician who is specially trained in emergency care. Many problems require more than one evaluation for a complete diagnosis and treatment. We recommend that you schedule your follow up appointment as recommended to ensure complete treatment of you illness or injury. If you are unable to obtain follow up care and continue to have a problem, or if your condition worsens, we recommend that you return to the ED. 2. We are not able to safely determine your condition over the phone nor are we able to give sound medical advice over the phone. For these safety reasons, if you call for medical advice we will ask you to come to the ED for further evaluation. 3. If you have any questions regarding these discharge instructions please call the ED at [phone]. SAFETY INFORMATION: In the interest of safety, wellness, and injury prevention; we encourage you to wear your sealbelt, if you smoke; quite smoking, and we encourage family to use a protective helmet for bicycling and other sporting events that present an increased risk for head injury. IF YOUR SYMPTOMS WORSEN OR NEW SYMPTOMS DEVELOP, OR YOU HAVE CONCERNS ABOUT YOUR CONDITION; OR IF YOUR CONDITION WORSENS WHILE YOU ARE WAITING FOR YOUR FOLLOW UP APPOINTMENT; EITHER CONTACT YOUR PRIMARY CARE DOCTOR, THE PHYSICIAN WHOSE NAME AND NUMBER YOU WERE GIVEN, OR RETURN TO THE ED IMMEDIATELY. Scripts Cephalexin (CEPHALEXIN) 500 Mg Tablet 500 MG PO BID for URINARY TRACT INFECTION for 7 Days, #14 TAB 0 Refills Take 1 tablet twice a day for the next 7 days for your urinary tract infection. Prov: CAYLA GOYAL APRN 04/14/20 CAYLA GOYAL APRN Apr 13, 2020 18:29
[2020-04-13 18:32] LABS: ALBUMIN 3.3 g/dL (3.4-5.0); ALBUMIN/GLOBULIN RATIO 0.8 (1.0-1.7); MAGNESIUM 1.9 mg/dL (1.8-2.4); TOTAL BILIRUBIN 0.9 mg/dL (0.2-1.0); TOTAL PROTEIN 7.6 g/dL (6.4-8.2)
--- NOTE | 2020-04-13 23:21 | RAD ---
Exam: Bilateral lower extremity venous duplex study INDICATION: Leg swelling TECHNIQUE: Using a combination of real-time ultrasound imaging and color-flow and pulse Doppler imaging techniques along with graded compression and augmentation, duplex evaluation of the deep venous systems of bilateral lower extremity was performed. Multiple images were obtained. Findings: There is no sonographic evidence for deep venous thrombosis involving the visualized deep venous structures of the bilateral lower extremity. IMPRESSION: No acute DVT in the bilateral lower extremities. Electronically signed by: Tito Antonio MD (04/13/2020 11:18 PM) [facility]
[2020-04-14 00:34] VITALS: BP 176/73
[2020-04-14] MEDS ORDERED: CEPH500T PO (00:41)
[2020-04-14] MEDS ORDERED: CEPHALEXIN 250 MG CAPSULE. PO ONE (00:45)
--- NOTE | 2020-04-14 10:04 | EKG ---
[facility] [address] [place] [address] Test Date: 2020-04-13 Test Time: 16:57:41 Pat Name: BURT HOWARD Department: Room: Gender: F Internal Controls Analyst: : 1945 Requested By: CAYLA GOYAL Order Number: [id number] Reading MD: Measurements Intervals [place] Rate: 63 P: 55 CO: 188 QRS: -22 QRSD: 110 T: 128 QT: 460 QTc: 474 Interpretive Statements SINUS RHYTHM VENTRICULAR PREMATURE COMPLEX(ES) LEFTWARD AXIS T ABNORMALITY IN HIGH LATERAL LEADS PROLONGED QT ABNORMAL ECG RI6.01 No previous ECG available for comparison
== END 2020-04-14 00:49 | disposition home or self-care (01) ==
LOC: ER 15:56
DX: N30.01 Acute cystitis with hematuria (principal); R53.1 Weakness; G30.9 Alzheimer's disease, unspecified; F02.80 Dementia in other diseases classified elsewhere, unspecified severity, without behavioral disturbance, psychotic disturbance, mood disturbance, and anxiety; F41.9 Anxiety disorder, unspecified; F32.9 Major depressive disorder, single episode, unspecified; E78.00 Pure hypercholesterolemia, unspecified; I11.0 Hypertensive heart disease with heart failure; I50.9 Heart failure, unspecified; Z86.73 Personal history of transient ischemic attack (TIA), and cerebral infarction without residual deficits; Z98.890 Other specified postprocedural states
CPT/HCPCS: 36415; 70450; 71045; 72125; 80053; 81001; 82553; 82728; 82962; 83540; 83550; 83605; 83735; 83880; 84484; 85025; 85610; 85730; 86140; 87086; 93005; 93970; 99285; P9612

== ENCOUNTER 2020-05-26 11:31 | Inpatient (IN) | payer MEDICARE ==
[~2020-05-26] VITALS: Ht 175.3 cm; Wt 90.4 kg
[~2020-05-26 11:31] MED LIST changes: +CEPH500T PO; -HYDR50TA6 PO; +HYDR50TA9 PO
[2020-05-26] MEDS ORDERED: IV DEXTROSE 5% - 0.9 % NACL 1,000 ML IV ONE ×2 (12:00→15:00)
[2020-05-26 12:25] LABS: BASO # 0.1 x10^3/uL (0.0-0.2); BASO % 1 % (0-3); EOS % 0 % (0-3); HEMATOCRIT 42.7 % (36.0-47.0); HEMOGLOBIN 14.1 g/dL (12.0-15.5); LYMPH % 10 % (24-48); MEAN CORPUSCULAR HEMOGLOBIN 30 pg (25-35); MEAN CORPUSCULAR HGB CONC 33 g/dL (31-37); MEAN CORPUSCULAR VOLUME 92 fL (79-100); MONO # 0.5 x10^3/uL (0.0-1.1); MONO % 5 % (0-9); NEUT # 8.5 x10^3/uL (1.8-7.7); NEUT % 84 % (31-73); PLATELET COUNT 276 x10^3/uL (140-400); RED BLOOD COUNT 4.67 x10^6/uL (3.50-5.40); RED CELL DISTRIBUTION WIDTH 13.9 % (11.5-14.5); WHITE BLOOD COUNT 10.2 x10^3/uL (4.0-11.0)
--- NOTE | 2020-05-26 12:32 | RAD ---
CT HEAD/BRAIN WO Date: 05/26/2020 12:10 PM Clinical Indication: lethargic Comparison: 04/13/2020. Technique: 5 mm axial tomographic images were obtained of the head without contrast. These were view ed on brain and bone windows. One or more of the following dose reduction techniques were utilized: A utomated exposure control (AEC), Adjustment of mA and/or kV according to patient size, Use of iterati ve reconstruction technique such as ASiR, CT scan done according to ALARA and image gently/image haynes ly Findings: Mild generalized cerebral and cerebellar volume loss. Extensive nonspecific periventricular hypoatten uation, most commonly seen with chronic small vessel ischemic disease. Calcified atherosclerosis of t he bilateral cavernous and paraclinoid internal carotid arteries and intracranial vertebral arteries. No intra- or extra-axial mass or fluid collection. No acute hemorrhage. The ventricles are normal in size, shape, and morphology. The spicer-white matter junction is normal. The subarachnoid cisterns are patent. The visualized paranasal sinuses are normal. The visualized portions of the orbits and globes are no rmal. The mastoid air cells are clear. The payroll associate topogram shows no lytic lesion or fracture. Impression: No acute intracranial process. Mild cerebral volume loss. Extensive chronic small vessel ischemic disease. Electronically signed by: Nato Samayoa MD (05/26/2020 12:29 PM) [id number]
[2020-05-26 12:35] LABS: CALCIUM 9.9 mg/dL (8.5-10.1); CREATININE 1.3 mg/dL (0.6-1.0); GFR 48.2
[2020-05-26 12:36] LABS: PROTHROMBIN TIME PATIENT 13.6 SEC (11.7-14.0)
[2020-05-26 12:39] LABS: ALBUMIN 3.1 g/dL (3.4-5.0); ALBUMIN/GLOBULIN RATIO 0.8 (1.0-1.7); TOTAL BILIRUBIN 0.3 mg/dL (0.2-1.0)
--- NOTE | 2020-05-26 12:50 | RAD ---
XR CHEST 1V INDICATION: Reason: AMS/lethargic 22 / Spl. Instructions: / History: . COMPARISON STUDY: 04/13/2020. FINDINGS: Lungs: Low lung volume. No pulmonary mass or consolidation. The tracheobronchial tree and hilar struc tures are normal. Pleura: No pleural effusion or pneumothorax. Heart and Mediastinum: Cardiomegaly. Atherosclerotic thoracic aorta. IMPRESSION: Low lung volume. No consolidation. Electronically signed by: Nato Samayoa MD (05/26/2020 12:48 PM) [id number]
[2020-05-26] MEDS ORDERED: DEXTROSE 50% 25 GM / 50ML DISP.SYRIN. IV ONE ×2 (13:44→13:45)
--- NOTE | 2020-05-26 14:46 | PHYS DOC ---
Past Medical History Past Medical History: Anxiety, CHF, Dementia, Depression, Diabetes-Type II, High Cholesterol, Hypertension, Renal Disease, TIA, Other Additional Past Medical Histor: OSTEOARTHRITIS, OBSTRUCTIVE SLEEP APNEA Past Surgical History: Other Additional Past Surgical Histo: NECK SURGERY, FEM POP Smoking Status: Never Smoker Alcohol Use: None Drug Use: None General Adult EDM: Chief Complaint: HYPOGLYCEMIA HPI: HPI: Patient is a 75 year old female with history of diabetes type 2, hypertension, high cholesterol, TIA, kidney disease, high cholesterol, dementia, who presents to the ED today from home by EMS, EMS reports patient's blood glucose at home was 51 and she was not as responsive as normal, they state she was sluggish they called EMS, she was given D10, the stated she was much more awake. She arrives in the ED still sleepy but able to carry some conversations. Review of Systems: Review of Systems: Constitutional: Denies fever or chills. [] Eyes: Denies change in visual acuity. [] HENT: Denies nasal congestion or sore throat. [] Respiratory: Denies cough or shortness of breath. [] Cardiovascular: Denies chest pain or edema. [] GI: Denies abdominal pain, nausea, vomiting, bloody stools or diarrhea. [] : Denies dysuria. [] Musculoskeletal: Denies back pain or joint pain. [] Integument: Denies rash. [] Neurologic: Denies headache, focal weakness or sensory changes. [] Endocrine: Hypoglycemia Psychiatric: Denies depression or anxiety. [] Heart Score: Risk Factors: Risk Factors: DM, Current or recent (<one month) smoker, HTN, HLP, family history of CAD, obesity. Risk Scores: Score 0 - 3: 2.5% MACE over next 6 weeks - Discharge Home Score 4 - 6: 20.3% MACE over next 6 weeks - Admit for Clinical Observation Score 7 - 10: 72.7% MACE over next 6 weeks - Early Invasive Strategies Current Medications: Current Medications Medications (Trade) Dose Ordered Sig/Blue Start Time Stop Time Status Last Admin Dose Admin Dextrose (Dextrose 50%-Water Syringe) 25 gm 1X ONCE 05/26/20 13:45 05/26/20 13:49 DC 05/26/20 13:49 25 GM Dextrose/Sodium Chloride 1,000 ml @ 75 mls/hr 1X ONCE 05/26/20 12:00 05/27/20 01:19 05/26/20 12:13 75 MLS/HR Allergies: Allergies: Allergies Coded Allergies Type Severity Reaction Last Updated Verified No Known Drug Allergies 08/04/16 No Physical Exam: PE: Constitutional: Well developed, well nourished, no acute distress, non-toxic appearance. [] HENT: Normocephalic, atraumatic, bilateral external ears normal, oropharynx moist, no oral exudates, nose normal. [] Eyes: PERRLA, EOMI, conjunctiva normal, no discharge. [] Neck: Normal range of motion, no tenderness, supple, no stridor. [] Cardiovascular:Heart rate regular rhythm, no murmur [] Lungs & Thorax: Bilateral breath sounds clear to auscultation [] Abdomen: Bowel sounds normal, soft, no tenderness, no masses, no pulsatile masses. [] Skin: Warm, dry, no erythema, no rash. [] Back: No tenderness, no CVA tenderness. [] Extremities: No tenderness, no cyanosis, no clubbing, ROM intact, no edema. [] Neurologic: Sluggish but alert and oriented X 3, normal motor function, normal sensory function, no focal deficits noted. Cranial nerves II through XII intact Psychologic: Flat affect Current Patient Data: Labs: Laboratory Tests Test 05/26/20 11:40 05/26/20 12:05 05/26/20 13:41 Glucose (Fingerstick) 81 mg/dL (70-99) 37 mg/dL (70-99) *L White Blood Count 10.2 x10^3/uL (4.0-11.0) Red Blood Count 4.67 x10^6/uL (3.50-5.40) Hemoglobin 14.1 g/dL (12.0-15.5) Hematocrit 42.7 % (36.0-47.0) Mean Corpuscular Volume 92 fL (79-100) Mean Corpuscular Hemoglobin 30 pg (25-35) Mean Corpuscular Hemoglobin Concent 33 g/dL (31-37) Red Cell Distribution Width 13.9 % (11.5-14.5) Platelet Count 276 x10^3/uL (140-400) Neutrophils (%) (Auto) 84 % (31-73) H Lymphocytes (%) (Auto) 10 % (24-48) L Monocytes (%) (Auto) 5 % (0-9) Eosinophils (%) (Auto) 0 % (0-3) Basophils (%) (Auto) 1 % (0-3) Neutrophils # (Auto) 8.5 x10^3/uL (1.8-7.7) H Lymphocytes # (Auto) 1.0 x10^3/uL (1.0-4.8) Monocytes # (Auto) 0.5 x10^3/uL (0.0-1.1) Eosinophils # (Auto) 0.0 x10^3/uL (0.0-0.7) Basophils # (Auto) 0.1 x10^3/uL (0.0-0.2) Prothrombin Time 13.6 SEC (11.7-14.0) Prothrombin Time INR 1.1 (0.8-1.1) Activated Partial Thromboplast Time 24 SEC (24-38) Sodium Level 141 mmol/L (136-145) Potassium Level 4.0 mmol/L (3.5-5.1) Chloride Level 104 mmol/L (98-107) Carbon Dioxide Level 32 mmol/L (21-32) Anion Gap 5 (6-14) L Blood Urea Nitrogen 21 mg/dL (7-20) H Creatinine 1.3 mg/dL (0.6-1.0) H Estimated GFR (Cockcroft-Gault) 48.2 BUN/Creatinine Ratio 16 (6-20) Glucose Level 89 mg/dL (70-99) Calcium Level 9.9 mg/dL (8.5-10.1) Magnesium Level 2.0 mg/dL (1.8-2.4) Total Bilirubin 0.3 mg/dL (0.2-1.0) Aspartate Amino Transferase (AST) 25 U/L (15-37) Alanine Aminotransferase (ALT) 20 U/L (14-59) Alkaline Phosphatase 104 U/L (46-116) Troponin I Quantitative < 0.017 ng/mL (0.000-0.055) DY-Fqr-K-Type Natriuretic Peptide 628 pg/mL (0-449) H Total Protein 7.0 g/dL (6.4-8.2) Albumin 3.1 g/dL (3.4-5.0) L Albumin/Globulin Ratio 0.8 (1.0-1.7) L Lipase 164 U/L (73-393) Thyroid Stimulating Hormone (TSH) 2.310 uIU/mL (0.358-3.74) Laboratory Tests 05/26/20 12:05 Laboratory Tests 05/26/20 12:05 Vital Signs: Vital Signs Date Time Temp Pulse Resp B/P (MAP) Pulse Ox O2 Delivery O2 Flow Rate FiO2 05/26/20 12:59 58 20 183/73 (109) 97 Room Air 05/26/20 11:31 97.1 97.1 EKG: EK interpreted by Dr. Olson sinus rhythm heart rate 58 no STEMI [] Radiology/Procedures: Radiology/Procedures: []PROCEDURE: CT HEAD WO CONTRAST CT HEAD/BRAIN WO Date: 05/26/2020 12:10 PM Clinical Indication: lethargic Comparison: 04/13/2020. Technique: 5 mm axial tomographic images were obtained of the head without contrast. These were viewed on brain and bone windows. One or more of the following dose reduction techniques were utilized: Automated exposure control (AEC), Adjustment of mA and/or kV according to patient size, Use of iterative reconstruction technique such as ASiR, CT scan done according to ALARA and image gently/image wisely Findings: Mild generalized cerebral and cerebellar volume loss. Extensive nonspecific periventricular hypoattenuation, most commonly seen with chronic small vessel ischemic disease. Calcified atherosclerosis of the bilateral cavernous and paraclinoid internal carotid arteries and intracranial vertebral arteries. No intra- or extra-axial mass or fluid collection. No acute hemorrhage. The ventricles are normal in size, shape, and morphology. The spicer-white matter junction is normal. The subarachnoid cisterns are patent. The visualized paranasal sinuses are normal. The visualized portions of the orbits and globes are normal. The mastoid air cells are clear. The e m assembler topogram shows no lytic lesion or fracture. Impression: No acute intracranial process. Mild cerebral volume loss. Extensive chronic small vessel ischemic disease. Electronically signed by: Raina Samayoa MD (05/26/2020 12:29 PM) [id number] DICTATED and SIGNED BY: RAINA SAMAYOA MD DATE: 05/26/20 [id number] PROCEDURE: PORTABLE CHEST 1V XR CHEST 1V INDICATION: Reason: AMS/lethargic 22 / Spl. Instructions: / History: . COMPARISON STUDY: 04/13/2020. FINDINGS: Lungs: Low lung volume. No pulmonary mass or consolidation. The tracheobronchial tree and hilar structures are normal. Pleura: No pleural effusion or pneumothorax. Heart and Mediastinum: Cardiomegaly. Atherosclerotic thoracic aorta. IMPRESSION: Low lung volume. No consolidation. Electronically signed by: Raina Samayoa MD (05/26/2020 12:48 PM) [id number] DICTATED and SIGNED BY: RAINA SAMAYOA MD DATE: 05/26/20 [id number] Course & Med Decision Making: Course & Med Decision Making Pertinent Labs and Imaging studies reviewed. (See chart for details) This is a 75-year-old female patient presented to the ED today to be evaluated for hypoglycemia. Glucose at home was 51. Was given D10 by EMS. Glucose in the ED on arrival was 89, she was started on D5 with normal saline at 75. We rechecked her glucose, she was at 37 despite the D5 with normal saline infusing. She was given an amp of D50 Spoke with Dr. Little who accepted patient for admission Chely Disclaimer: Chely Disclaimer: This electronic medical record was generated, in whole or in part, using a voice recognition dictation system. Departure Departure Impression: Primary Impression: Hypoglycemia Disposition: 09 ADMITTED INPT THIS HOSP Condition: STABLE Referrals: STEPHEN SALGADO D.O. (PCP) JOSE EDWARD APRN May 26, 2020 14:46
[2020-05-26] MEDS ORDERED: ACETAMINOPHEN 325 MG TABLET. PO PRN ×2 (15:00→15:45)
[2020-05-26] MEDS ORDERED: ONDANSETRON PF 4 MG/2 ML VIAL. IV PRN (15:00)
--- NOTE | 2020-05-26 15:40 | PDOC1 ---
History and Physical Date of Service: DOS: DATE: 05/26/20 TIME: 15:36 Chief Complaint: Chief Complain: AMS History of Present Illness: HPI: 75 year old female with history of diabetes type 2, hypertension, high cholesterol, TIA, kidney disease, high cholesterol, dementia, who presents to the ED today from home by EMS, EMS reports patient's blood glucose at home was 51 and she was not as responsive as normal, they state she was sluggish they called EMS, she was given D10, the stated she was much more awake. She arrives in the ED still sleepy but able to carry some conversations. Past Medical/Surgical History: PMH/PSH: Past Medical History: Anxiety, CHF, Dementia, Depression, Diabetes-Type II, High Cholesterol, Hypertension, Renal Disease, TIA, OSTEOARTHRITIS, OBSTRUCTIVE SLEEP APNEA Past Surgical History: NECK SURGERY, FEM POP Allergies: Allergies: Coded Allergies: No Known Drug Allergies (Unverified , 08/04/16) Family History: Family History: Difficult to obtain due to altered mental status Social History: Social History: Smoking Status: Never Smoker Alcohol Use: None Drug Use: None Current Medications: Current Medications Current Medications Dextrose/Sodium Chloride 1,000 ml @ 75 mls/hr 1X ONCE IV Last administered on 05/26/20at 12:13; Start 05/26/20 at 12:00; Stop 05/27/20 at 01:19 Dextrose (Dextrose 50%-Water Syringe) 25 gm STK-MED ONCE IV ; Start 05/26/20 at 13:44; Stop 05/26/20 at 13:45; Status DC Dextrose (Dextrose 50%-Water Syringe) 25 gm 1X ONCE IV Last administered on 05/26/20at 13:49; Start 05/26/20 at 13:45; Stop 05/26/20 at 13:49; Status DC Ondansetron HCl (Zofran) 4 mg PRN Q8HRS PRN IV NAUSEA/VOMITING; Start 05/26/20 at 15:00; Stop 05/27/20 at 14:59 Acetaminophen (Tylenol) 650 mg PRN Q4HRS PRN PO FEVER > 100.3'F; Start 05/26/20 at 15:00; Stop 05/27/20 at 14:59 Dextrose/Sodium Chloride 1,000 ml @ 75 mls/hr 1X ONCE IV ; Start 05/26/20 at 15:00; Stop 05/27/20 at 04:19 Active Scripts Active Cephalexin 500 Mg Tablet 500 Mg PO BID 7 Days Take 1 tablet twice a day for the next 7 days for your urinary tract infection. Tramadol Hcl 50 Mg Tablet 50 Mg PO PRN Q6HRS PRN 6 Days Levofloxacin 250 Mg Tablet 250 Mg PO Q24H 8 Days Novolog Flexpen (Insulin Aspart) 100 Unit/1 Ml Insuln.pen 0 Units SQ TIDWMEALS 30 Days Reported Metoprolol Succinate ( Xl ) (Metoprolol Succinate) 25 Mg Tab.er.24h 3 Tab PO DAILY Losartan Potassium 50 Mg Tablet 50 Mg PO DAILY Levemir Flextouch (Insulin Detemir) 100 Unit/1 Ml Insuln.pen 40 Unit SQ HS Pioglitazone Hcl 30 Mg Tablet 30 Mg PO DAILY Zoloft (Sertraline Hcl) 50 Mg Tablet 1 Tab PO DAILY Atorvastatin Calcium 40 Mg Tablet 40 Mg PO HS Aspirin Ec (Aspirin) 81 Mg Tablet.dr 81 Mg PO Amlodipine Besylate 10 Mg Tablet 10 Mg PO DAILY Donepezil Hcl 10 Mg Tablet 10 Mg PO HS ROS: Review of Systems Difficult to obtain due to altered mental status Physical Exam: Vital Signs: Vital Signs Date Time Temp Pulse Resp B/P (MAP) Pulse Ox O2 Delivery O2 Flow Rate FiO2 05/26/20 12:59 58 20 183/73 (109) 97 Room Air 05/26/20 11:31 97.1 97.1 Physcial Exam: GEN: No apparent distress. Alert and oriented HEENT: Normal cephalic, atraumatic, external auditory canals are patent EYES: Extraocular muscles are intact, pupil are equally round and reactive to light and accommodation MUSCULOSKELETAL: Well developed , well nourished, good range of motion ENDOCRINE: No thyromegaly was palpated LYMPHATICS: No cervical chain or axillary nodes were noted HEMATOPOIETIC: No bruising NECK: Supple, no JVD, no thyromegaly was noted LUNGS: Clear to auscultation in all lung demarco without rhonchi or wheezing HEART: RRR, S!, S2 present. Peripheral pulses intact, no obvious murmurs noted ABDOMEN: Soft, nontender. Positive bowel sounds, no organomegaly, normal bowel sounds EXTREMITIES: Without clubbing, cyanosis, or edema. Pedal pulses intact. Negative Homans sign NEUROLOGIC: Normal speech and tone. A&O x 3, moves all extremities, no obvious focal deficits PSYCHIATRIC: Normal affect, normal mood. Stable SKIN: No ulcerations or rashes, good skin turgor, no jaundice VASCULAR: Good capillary refill, neurovascular bundle appears to be intact Labs: Labs: Laboratory Tests Test 05/26/20 11:40 05/26/20 12:05 05/26/20 13:41 05/26/20 15:25 Glucose (Fingerstick) 81 mg/dL (70-99) 37 mg/dL (70-99) 92 mg/dL (70-99) White Blood Count 10.2 x10^3/uL (4.0-11.0) Red Blood Count 4.67 x10^6/uL (3.50-5.40) Hemoglobin 14.1 g/dL (12.0-15.5) Hematocrit 42.7 % (36.0-47.0) Mean Corpuscular Volume 92 fL (79-100) Mean Corpuscular Hemoglobin 30 pg (25-35) Mean Corpuscular Hemoglobin Concent 33 g/dL (31-37) Red Cell Distribution Width 13.9 % (11.5-14.5) Platelet Count 276 x10^3/uL (140-400) Neutrophils (%) (Auto) 84 % (31-73) Lymphocytes (%) (Auto) 10 % (24-48) Monocytes (%) (Auto) 5 % (0-9) Eosinophils (%) (Auto) 0 % (0-3) Basophils (%) (Auto) 1 % (0-3) Neutrophils # (Auto) 8.5 x10^3/uL (1.8-7.7) Lymphocytes # (Auto) 1.0 x10^3/uL (1.0-4.8) Monocytes # (Auto) 0.5 x10^3/uL (0.0-1.1) Eosinophils # (Auto) 0.0 x10^3/uL (0.0-0.7) Basophils # (Auto) 0.1 x10^3/uL (0.0-0.2) Prothrombin Time 13.6 SEC (11.7-14.0) Prothromb Time International Ratio 1.1 (0.8-1.1) Activated Partial Thromboplast Time 24 SEC (24-38) Sodium Level 141 mmol/L (136-145) Potassium Level 4.0 mmol/L (3.5-5.1) Chloride Level 104 mmol/L (98-107) Carbon Dioxide Level 32 mmol/L (21-32) Anion Gap 5 (6-14) Blood Urea Nitrogen 21 mg/dL (7-20) Creatinine 1.3 mg/dL (0.6-1.0) Estimated GFR (Cockcroft-Gault) 48.2 BUN/Creatinine Ratio 16 (6-20) Glucose Level 89 mg/dL (70-99) Calcium Level 9.9 mg/dL (8.5-10.1) Magnesium Level 2.0 mg/dL (1.8-2.4) Total Bilirubin 0.3 mg/dL (0.2-1.0) Aspartate Amino Transf (AST/SGOT) 25 U/L (15-37) Alanine Aminotransferase (ALT/SGPT) 20 U/L (14-59) Alkaline Phosphatase 104 U/L (46-116) Troponin I Quantitative < 0.017 ng/mL (0.000-0.055) TQ-Lhz-C-Type Natriuretic Peptide 628 pg/mL (0-449) Total Protein 7.0 g/dL (6.4-8.2) Albumin 3.1 g/dL (3.4-5.0) Albumin/Globulin Ratio 0.8 (1.0-1.7) Lipase 164 U/L (73-393) Thyroid Stimulating Hormone (TSH) 2.310 uIU/mL (0.358-3.74) Laboratory Tests Test 05/26/20 11:40 05/26/20 12:05 05/26/20 13:41 05/26/20 15:25 Glucose (Fingerstick) 81 mg/dL (70-99) 37 mg/dL (70-99) 92 mg/dL (70-99) White Blood Count 10.2 x10^3/uL (4.0-11.0) Red Blood Count 4.67 x10^6/uL (3.50-5.40) Hemoglobin 14.1 g/dL (12.0-15.5) Hematocrit 42.7 % (36.0-47.0) Mean Corpuscular Volume 92 fL (79-100) Mean Corpuscular Hemoglobin 30 pg (25-35) Mean Corpuscular Hemoglobin Concent 33 g/dL (31-37) Red Cell Distribution Width 13.9 % (11.5-14.5) Platelet Count 276 x10^3/uL (140-400) Neutrophils (%) (Auto) 84 % (31-73) Lymphocytes (%) (Auto) 10 % (24-48) Monocytes (%) (Auto) 5 % (0-9) Eosinophils (%) (Auto) 0 % (0-3) Basophils (%) (Auto) 1 % (0-3) Neutrophils # (Auto) 8.5 x10^3/uL (1.8-7.7) Lymphocytes # (Auto) 1.0 x10^3/uL (1.0-4.8) Monocytes # (Auto) 0.5 x10^3/uL (0.0-1.1) Eosinophils # (Auto) 0.0 x10^3/uL (0.0-0.7) Basophils # (Auto) 0.1 x10^3/uL (0.0-0.2) Prothrombin Time 13.6 SEC (11.7-14.0) Prothromb Time International Ratio 1.1 (0.8-1.1) Activated Partial Thromboplast Time 24 SEC (24-38) Sodium Level 141 mmol/L (136-145) Potassium Level 4.0 mmol/L (3.5-5.1) Chloride Level 104 mmol/L (98-107) Carbon Dioxide Level 32 mmol/L (21-32) Anion Gap 5 (6-14) Blood Urea Nitrogen 21 mg/dL (7-20) Creatinine 1.3 mg/dL (0.6-1.0) Estimated GFR (Cockcroft-Gault) 48.2 BUN/Creatinine Ratio 16 (6-20) Glucose Level 89 mg/dL (70-99) Calcium Level 9.9 mg/dL (8.5-10.1) Magnesium Level 2.0 mg/dL (1.8-2.4) Total Bilirubin 0.3 mg/dL (0.2-1.0) Aspartate Amino Transf (AST/SGOT) 25 U/L (15-37) Alanine Aminotransferase (ALT/SGPT) 20 U/L (14-59) Alkaline Phosphatase 104 U/L (46-116) Troponin I Quantitative < 0.017 ng/mL (0.000-0.055) HF-Cux-A-Type Natriuretic Peptide 628 pg/mL (0-449) Total Protein 7.0 g/dL (6.4-8.2) Albumin 3.1 g/dL (3.4-5.0) Albumin/Globulin Ratio 0.8 (1.0-1.7) Lipase 164 U/L (73-393) Thyroid Stimulating Hormone (TSH) 2.310 uIU/mL (0.358-3.74) Images: Images CXR Impression: 1. No acute cardiopulmonary process. Negative head CT Assessment/Plan Assessment/Plan Acute metabolic encephalopathy NOS Acute delirium or confusional state due to metabolic disturbance JENNA due to vasomotor nephropathy Symptomatic hypoglycemia Admit to medicine for further management Advance diet as tolerated Continue D5 infusion with fluids Consider dementia prevention protocol Provide adequate lighting (open curtains during the day, turn the lights off at night) Provide frequent personal contact with family, friends, and staff or TV Encourage early and frequent mobilization PT OT screening ordered IV Haldol as needed for agitation, consider sitter as needed if non-redirectable agitation Avoid physical restraints, catheters or tubes, and benzodiazepines Nutrition consult if there is malnutrition or concern for vitamin deficiencies Continue IV fluids Lovenox for DVT prophylaxis Pepcid GI prophylaxis ADA diet Full code Discussed with RN and SW Dispo inpatient management as above DPOA is the daughters Justifications for Admission Other Justification LYLE MELENDEZ MD May 26, 2020 15:40
[2020-05-26] MEDS ORDERED: DOCUSATE SODIUM 100 MG CAPSULE. PO PRN (15:45)
[2020-05-26] MEDS ORDERED: ONDANSETRON PF 4 MG/2 ML VIAL. IVP PRN (15:45)
[2020-05-26] MEDS ORDERED: DEXTROSE 50% 25 GM / 50ML DISP.SYRIN. IV PRN (15:45)
[2020-05-26] MEDS ORDERED: SENNOSIDES 8.6 MG TABLET PO PRN (15:45)
[2020-05-26] MEDS: INSULIN LISPRO 300 UNITS/3 ML VIAL. SQ SCH (17:00)
[2020-05-26 17:30] VITALS: BP 186/87
[2020-05-26 19:00] VITALS: BP 196/84
[2020-05-26] MEDS: ENOXAPARIN 40 MG/0.4 ML SYRINGE. SQ SCH (21:30)
[2020-05-26 21:31] VITALS: BP 165/60
[2020-05-26 23:00] VITALS: BP 140/62
[2020-05-27] VITALS (7 sets, daily range): BP systolic 129–185; BP diastolic 66–75
[2020-05-27] MEDS: IV DEXTROSE 5 %-0.45 % NACL 1,000 ML IV SCH ×3 (02:31→17:57)
[2020-05-27] MEDS: INSULIN LISPRO 300 UNITS/3 ML VIAL. SQ SCH ×3 (07:56→18:25)
--- NOTE | 2020-05-27 08:36 | PDOC ---
PROGRESS NOTES Date of Service: DATE: 05/27/20 TIME: 08:36 Chief Complaint Chief Complaint Images: Images CXR Impression: 1. No acute cardiopulmonary process. Negative head CT Assessment/Plan Assessment/Plan Acute metabolic encephalopathy NOS Acute delirium or confusional state due to metabolic disturbance JENNA due to vasomotor nephropathy Symptomatic hypoglycemia plan Admit to medicine for further management Advance diet as tolerated Continue D5 infusion with fluids Consider dementia prevention protocol Provide adequate lighting (open curtains during the day, turn the lights off at night) Provide frequent personal contact with family, friends, and staff or TV Encourage early and frequent mobilization PT OT screening ordered IV Haldol as needed for agitation, consider sitter as needed if non-redirectable agitation Avoid physical restraints, catheters or tubes, and benzodiazepines Nutrition consult if there is malnutrition or concern for vitamin deficiencies Continue IV fluids Lovenox for DVT prophylaxis Pepcid GI prophylaxis ADA diet Full code Discussed with RN and SW Dispo inpatient management as above DPOA is the daughters 05/27 remain on iv d5 but sugars low normal, her sister gives her insulin, patient does not appear able to self administer due to dementia Justifications for Admission Justifications for Admission Other Justification History of Present Illness History of Present Illness Chief Complaint: Chief Complain: AMS History of Present Illness: HPI: 75 year old female with history of diabetes type 2, hypertension, high cholesterol, TIA, kidney disease, high cholesterol, dementia, who presents to the ED today from home by EMS, EMS reports patient's blood glucose at home was 51 and she was not as responsive as normal, they state she was sluggish they called EMS, she was given D10, the stated she was much more awake. She arrives in the ED still sleepy but able to carry some conversations. Past Medical/Surgical History: PMH/PSH: Past Medical History: Anxiety, CHF, Dementia, Depression, Diabetes-Type II, High Cholesterol, Hypertension, Renal Disease, TIA, OSTEOARTHRITIS, OBSTRUCTIVE SLEEP APNEA Past Surgical History: NECK SURGERY, FEM POP Allergies: Allergies: Coded Allergies: No Known Drug Allergies (Unverified , 08/04/16) Family History: Family History: Difficult to obtain due to altered mental status Social History: Social History: Smoking Status: Never Smoker Alcohol Use: None Drug Use: None Current Medications: Vitals Vitals Vital Signs Date Time Temp Pulse Resp B/P (MAP) Pulse Ox O2 Delivery O2 Flow Rate FiO2 05/27/20 03:37 65 180/75 (110) 05/27/20 03:00 98.0 22 98 Room Air 98.0 Physical Exam Physical Exam Physcial Exam: GEN: No apparent distress. Alert mild confusion HEENT: Normal cephalic, atraumatic, external auditory canals are patent EYES: Extraocular muscles are intact, pupil are equally round and reactive to light and accommodation MUSCULOSKELETAL: Well developed , well nourished, good range of motion ENDOCRINE: No thyromegaly was palpated LYMPHATICS: No cervical chain or axillary nodes were noted HEMATOPOIETIC: No bruising NECK: Supple, no JVD, no thyromegaly was noted LUNGS: Clear to auscultation in all lung demarco without rhonchi or wheezing HEART: RRR, S!, S2 present. Peripheral pulses intact, no obvious murmurs noted ABDOMEN: Soft, nontender. Positive bowel sounds, no organomegaly, normal bowel sounds EXTREMITIES: Without clubbing, cyanosis, or edema. Pedal pulses intact. Negative Homans sign NEUROLOGIC: Normal speech and tone. A&O x 3, moves all extremities, no obvious focal deficits PSYCHIATRIC: Normal affect, normal mood. Stable SKIN: No ulcerations or rashes, good skin turgor, no jaundice VASCULAR: Good capillary refill, neurovascular bundle appears to be intact General: Alert, Cooperative, No acute distress, Other (confused to details) Heart: Regular rate Lungs: Clear Abdomen: Normal bowel sounds, Soft Extremities: No clubbing, No cyanosis, No edema Labs LABS XR CHEST 1V INDICATION: Reason: AMS/lethargic 22 / Spl. Instructions: / History: . COMPARISON STUDY: 04/13/2020. FINDINGS: Lungs: Low lung volume. No pulmonary mass or consolidation. The tracheobronchial tree and hilar structures are normal. Pleura: No pleural effusion or pneumothorax. Heart and Mediastinum: Cardiomegaly. Atherosclerotic thoracic aorta. IMPRESSION: Low lung volume. No consolidation. Electronically signed by: Raina Harvey MD (05/26/2020 12:48 PM) [id number] DICTATED and SIGNED BY: RAINA HARVEY MD DATE: 05/26/[id number] HEAD/BRAIN WO Date: 05/26/2020 12:10 PM Clinical Indication: lethargic Comparison: 04/13/2020. Technique: 5 mm axial tomographic images were obtained of the head without contrast. These were viewed on brain and bone windows. One or more of the following dose reduction techniques were utilized: Automated exposure control (AEC), Adjustment of mA and/or kV according to patient size, Use of iterative reconstruction technique such as ASiR, CT scan done according to ALARA and image gently/image wisely Findings: Mild generalized cerebral and cerebellar volume loss. Extensive nonspecific periventricular hypoattenuation, most commonly seen with chronic small vessel ischemic disease. Calcified atherosclerosis of the bilateral cavernous and paraclinoid internal carotid arteries and intracranial vertebral arteries. No intra- or extra-axial mass or fluid collection. No acute hemorrhage. The ventricles are normal in size, shape, and morphology. The spicer-white matter junction is normal. The subarachnoid cisterns are patent. The visualized paranasal sinuses are normal. The visualized portions of the orbits and globes are normal. The mastoid air cells are clear. The proposal engineer topogram shows no lytic lesion or fracture. Impression: No acute intracranial process. Mild cerebral volume loss. Extensive chronic small vessel ischemic disease. Electronically signed by: Raina Harvey MD (05/26/2020 12:29 PM) [id number] DICTATED and SIGNED BY: RAINA HARVEY MD DATE: 05/26/20 [id number] Laboratory Tests Test 05/26/20 11:40 05/26/20 12:05 05/26/20 13:41 05/26/20 15:25 Glucose (Fingerstick) 81 mg/dL (70-99) 37 mg/dL (70-99) 92 mg/dL (70-99) White Blood Count 10.2 x10^3/uL (4.0-11.0) Red Blood Count 4.67 x10^6/uL (3.50-5.40) Hemoglobin 14.1 g/dL (12.0-15.5) Hematocrit 42.7 % (36.0-47.0) Mean Corpuscular Volume 92 fL (79-100) Mean Corpuscular Hemoglobin 30 pg (25-35) Mean Corpuscular Hemoglobin Concent 33 g/dL (31-37) Red Cell Distribution Width 13.9 % (11.5-14.5) Platelet Count 276 x10^3/uL (140-400) Neutrophils (%) (Auto) 84 % (31-73) Lymphocytes (%) (Auto) 10 % (24-48) Monocytes (%) (Auto) 5 % (0-9) Eosinophils (%) (Auto) 0 % (0-3) Basophils (%) (Auto) 1 % (0-3) Neutrophils # (Auto) 8.5 x10^3/uL (1.8-7.7) Lymphocytes # (Auto) 1.0 x10^3/uL (1.0-4.8) Monocytes # (Auto) 0.5 x10^3/uL (0.0-1.1) Eosinophils # (Auto) 0.0 x10^3/uL (0.0-0.7) Basophils # (Auto) 0.1 x10^3/uL (0.0-0.2) Prothrombin Time 13.6 SEC (11.7-14.0) Prothromb Time International Ratio 1.1 (0.8-1.1) Activated Partial Thromboplast Time 24 SEC (24-38) Sodium Level 141 mmol/L (136-145) Potassium Level 4.0 mmol/L (3.5-5.1) Chloride Level 104 mmol/L (98-107) Carbon Dioxide Level 32 mmol/L (21-32) Anion Gap 5 (6-14) Blood Urea Nitrogen 21 mg/dL (7-20) Creatinine 1.3 mg/dL (0.6-1.0) Estimated GFR (Cockcroft-Gault) 48.2 BUN/Creatinine Ratio 16 (6-20) Glucose Level 89 mg/dL (70-99) Calcium Level 9.9 mg/dL (8.5-10.1) Magnesium Level 2.0 mg/dL (1.8-2.4) Total Bilirubin 0.3 mg/dL (0.2-1.0) Aspartate Amino Transf (AST/SGOT) 25 U/L (15-37) Alanine Aminotransferase (ALT/SGPT) 20 U/L (14-59) Alkaline Phosphatase 104 U/L (46-116) Troponin I Quantitative < 0.017 ng/mL (0.000-0.055) KG-Jtn-D-Type Natriuretic Peptide 628 pg/mL (0-449) Total Protein 7.0 g/dL (6.4-8.2) Albumin 3.1 g/dL (3.4-5.0) Albumin/Globulin Ratio 0.8 (1.0-1.7) Lipase 164 U/L (73-393) Thyroid Stimulating Hormone (TSH) 2.310 uIU/mL (0.358-3.74) Test 05/26/20 20:23 05/27/20 02:40 05/27/20 07:42 Glucose (Fingerstick) 184 mg/dL (70-99) 89 mg/dL (70-99) 96 mg/dL (70-99) Assessment and Plan Assessmemt and Plan Problems Medical Problems: (1) Hypoglycemia Status: Acute Comment Review of Relevant I have reviewed the following items joel (where applicable) has been applied. Labs Laboratory Tests Test 05/26/20 11:40 05/26/20 12:05 05/26/20 13:41 05/26/20 15:25 Glucose (Fingerstick) 81 mg/dL (70-99) 37 mg/dL (70-99) 92 mg/dL (70-99) White Blood Count 10.2 x10^3/uL (4.0-11.0) Red Blood Count 4.67 x10^6/uL (3.50-5.40) Hemoglobin 14.1 g/dL (12.0-15.5) Hematocrit 42.7 % (36.0-47.0) Mean Corpuscular Volume 92 fL (79-100) Mean Corpuscular Hemoglobin 30 pg (25-35) Mean Corpuscular Hemoglobin Concent 33 g/dL (31-37) Red Cell Distribution Width 13.9 % (11.5-14.5) Platelet Count 276 x10^3/uL (140-400) Neutrophils (%) (Auto) 84 % (31-73) Lymphocytes (%) (Auto) 10 % (24-48) Monocytes (%) (Auto) 5 % (0-9) Eosinophils (%) (Auto) 0 % (0-3) Basophils (%) (Auto) 1 % (0-3) Neutrophils # (Auto) 8.5 x10^3/uL (1.8-7.7) Lymphocytes # (Auto) 1.0 x10^3/uL (1.0-4.8) Monocytes # (Auto) 0.5 x10^3/uL (0.0-1.1) Eosinophils # (Auto) 0.0 x10^3/uL (0.0-0.7) Basophils # (Auto) 0.1 x10^3/uL (0.0-0.2) Prothrombin Time 13.6 SEC (11.7-14.0) Prothromb Time International Ratio 1.1 (0.8-1.1) Activated Partial Thromboplast Time 24 SEC (24-38) Sodium Level 141 mmol/L (136-145) Potassium Level 4.0 mmol/L (3.5-5.1) Chloride Level 104 mmol/L (98-107) Carbon Dioxide Level 32 mmol/L (21-32) Anion Gap 5 (6-14) Blood Urea Nitrogen 21 mg/dL (7-20) Creatinine 1.3 mg/dL (0.6-1.0) Estimated GFR (Cockcroft-Gault) 48.2 BUN/Creatinine Ratio 16 (6-20) Glucose Level 89 mg/dL (70-99) Calcium Level 9.9 mg/dL (8.5-10.1) Magnesium Level 2.0 mg/dL (1.8-2.4) Total Bilirubin 0.3 mg/dL (0.2-1.0) Aspartate Amino Transf (AST/SGOT) 25 U/L (15-37) Alanine Aminotransferase (ALT/SGPT) 20 U/L (14-59) Alkaline Phosphatase 104 U/L (46-116) Troponin I Quantitative < 0.017 ng/mL (0.000-0.055) NA-Uxk-E-Type Natriuretic Peptide 628 pg/mL (0-449) Total Protein 7.0 g/dL (6.4-8.2) Albumin 3.1 g/dL (3.4-5.0) Albumin/Globulin Ratio 0.8 (1.0-1.7) Lipase 164 U/L (73-393) Thyroid Stimulating Hormone (TSH) 2.310 uIU/mL (0.358-3.74) Test 05/26/20 20:23 05/27/20 02:40 05/27/20 07:42 Glucose (Fingerstick) 184 mg/dL (70-99) 89 mg/dL (70-99) 96 mg/dL (70-99) Laboratory Tests Test 05/26/20 11:40 05/26/20 12:05 05/26/20 13:41 05/26/20 15:25 Glucose (Fingerstick) 81 mg/dL (70-99) 37 mg/dL (70-99) 92 mg/dL (70-99) White Blood Count 10.2 x10^3/uL (4.0-11.0) Red Blood Count 4.67 x10^6/uL (3.50-5.40) Hemoglobin 14.1 g/dL (12.0-15.5) Hematocrit 42.7 % (36.0-47.0) Mean Corpuscular Volume 92 fL (79-100) Mean Corpuscular Hemoglobin 30 pg (25-35) Mean Corpuscular Hemoglobin Concent 33 g/dL (31-37) Red Cell Distribution Width 13.9 % (11.5-14.5) Platelet Count 276 x10^3/uL (140-400) Neutrophils (%) (Auto) 84 % (31-73) Lymphocytes (%) (Auto) 10 % (24-48) Monocytes (%) (Auto) 5 % (0-9) Eosinophils (%) (Auto) 0 % (0-3) Basophils (%) (Auto) 1 % (0-3) Neutrophils # (Auto) 8.5 x10^3/uL (1.8-7.7) Lymphocytes # (Auto) 1.0 x10^3/uL (1.0-4.8) Monocytes # (Auto) 0.5 x10^3/uL (0.0-1.1) Eosinophils # (Auto) 0.0 x10^3/uL (0.0-0.7) Basophils # (Auto) 0.1 x10^3/uL (0.0-0.2) Prothrombin Time 13.6 SEC (11.7-14.0) Prothromb Time International Ratio 1.1 (0.8-1.1) Activated Partial Thromboplast Time 24 SEC (24-38) Sodium Level 141 mmol/L (136-145) Potassium Level 4.0 mmol/L (3.5-5.1) Chloride Level 104 mmol/L (98-107) Carbon Dioxide Level 32 mmol/L (21-32) Anion Gap 5 (6-14) Blood Urea Nitrogen 21 mg/dL (7-20) Creatinine 1.3 mg/dL (0.6-1.0) Estimated GFR (Cockcroft-Gault) 48.2 BUN/Creatinine Ratio 16 (6-20) Glucose Level 89 mg/dL (70-99) Calcium Level 9.9 mg/dL (8.5-10.1) Magnesium Level 2.0 mg/dL (1.8-2.4) Total Bilirubin 0.3 mg/dL (0.2-1.0) Aspartate Amino Transf (AST/SGOT) 25 U/L (15-37) Alanine Aminotransferase (ALT/SGPT) 20 U/L (14-59) Alkaline Phosphatase 104 U/L (46-116) Troponin I Quantitative < 0.017 ng/mL (0.000-0.055) NP-Eab-V-Type Natriuretic Peptide 628 pg/mL (0-449) Total Protein 7.0 g/dL (6.4-8.2) Albumin 3.1 g/dL (3.4-5.0) Albumin/Globulin Ratio 0.8 (1.0-1.7) Lipase 164 U/L (73-393) Thyroid Stimulating Hormone (TSH) 2.310 uIU/mL (0.358-3.74) Test 05/26/20 20:23 05/27/20 02:40 05/27/20 07:42 Glucose (Fingerstick) 184 mg/dL (70-99) 89 mg/dL (70-99) 96 mg/dL (70-99) Medications Current Medications Dextrose/Sodium Chloride 1,000 ml @ 75 mls/hr 1X ONCE IV Last administered on 05/26/20at 12:13; Start 05/26/20 at 12:00; Stop 05/27/20 at 01:19; Status DC Dextrose (Dextrose 50%-Water Syringe) 25 gm STK-MED ONCE IV ; Start 05/26/20 at 13:44; Stop 05/26/20 at 13:45; Status DC Dextrose (Dextrose 50%-Water Syringe) 25 gm 1X ONCE IV Last administered on 05/26/20at 13:49; Start 05/26/20 at 13:45; Stop 05/26/20 at 13:49; Status DC Ondansetron HCl (Zofran) 4 mg PRN Q8HRS PRN IV NAUSEA/VOMITING; Start 05/26/20 at 15:00; Stop 05/27/20 at 14:59 Acetaminophen (Tylenol) 650 mg PRN Q4HRS PRN PO FEVER > 100.3'F; Start 05/26/20 at 15:00; Stop 05/27/20 at 14:59 Dextrose/Sodium Chloride 1,000 ml @ 75 mls/hr 1X ONCE IV ; Start 05/26/20 at 15:00; Stop 05/27/20 at 04:19; Status DC Sennosides (Senna) 17.2 mg PRN BID PRN PO CONSTIPATION; Start 05/26/20 at 15:45 Docusate Sodium (Colace) 100 mg PRN DAILY PRN PO HARD STOOLS; Start 05/26/20 at 15:45 Ondansetron HCl (Zofran) 4 mg PRN Q6HRS PRN IVP NAUSEA/VOMITING; Start 05/26/20 at 15:45 Insulin Human Lispro (HumaLOG) 0-7 UNITS TIDWMEALS SQ ; Start 05/26/20 at 17:00 Dextrose (Dextrose 50%-Water Syringe) 12.5 gm PRN Q15MIN PRN IV SEE COMMENTS; Start 05/26/20 at 15:45 Dextrose/Sodium Chloride 1,000 ml @ 100 mls/hr Q10H IV Last administered on 05/27/20at 02:31; Start 05/26/20 at 15:45 Acetaminophen (Tylenol) 650 mg PRN Q4HRS PRN PO TEMP OVER 100.4F OR MILD PAIN; Start 05/26/20 at 15:45 Enoxaparin Sodium (Lovenox 40mg Syringe) 40 mg Q24H SQ Last administered on 05/26/20at 21:30; Start 05/26/20 at 16:00 Active Scripts Active Cephalexin 500 Mg Tablet 500 Mg PO BID 7 Days Take 1 tablet twice a day for the next 7 days for your urinary tract infection. Tramadol Hcl 50 Mg Tablet 50 Mg PO PRN Q6HRS PRN 6 Days Levofloxacin 250 Mg Tablet 250 Mg PO Q24H 8 Days Novolog Flexpen (Insulin Aspart) 100 Unit/1 Ml Insuln.pen 0 Units SQ TIDWMEALS 30 Days Reported Metoprolol Succinate ( Xl ) (Metoprolol Succinate) 25 Mg Tab.er.24h 3 Tab PO DAILY Losartan Potassium 50 Mg Tablet 50 Mg PO DAILY Levemir Flextouch (Insulin Detemir) 100 Unit/1 Ml Insuln.pen 40 Unit SQ HS Pioglitazone Hcl 30 Mg Tablet 30 Mg PO DAILY Zoloft (Sertraline Hcl) 50 Mg Tablet 1 Tab PO DAILY Atorvastatin Calcium 40 Mg Tablet 40 Mg PO HS Aspirin Ec (Aspirin) 81 Mg Tablet.dr 81 Mg PO Amlodipine Besylate 10 Mg Tablet 10 Mg PO DAILY Donepezil Hcl 10 Mg Tablet 10 Mg PO HS Vitals/I & O Vital Sign - Last 24 Hours 05/26/20 05/26/20 05/26/20 05/26/20 11:31 11:40 12:10 12:29 Temp 97.1 97.1 Pulse 60 58 56 56 Resp 16 16 16 20 B/P (MAP) 213/89 (130) 213/89 (130) 169/76 (107) 210/86 (127) Pulse Ox 97 97 96 95 O2 Delivery Room Air Room Air 05/26/20 05/26/20 05/26/20 05/26/20 12:59 13:29 13:59 14:29 Pulse 58 60 59 60 Resp 20 B/P (MAP) 183/73 (109) 198/88 (124) 204/82 (122) 202/82 (122) Pulse Ox 97 96 99 98 O2 Delivery Room Air Room Air Room Air Room Air 05/26/20 05/26/20 05/26/20 05/26/20 14:59 16:01 17:30 19:00 Temp 97.5 98.1 97.5 98.1 Pulse 58 60 62 64 Resp 18 20 B/P (MAP) 200/91 (127) 185/79 (114) 186/87 (120) 196/84 (121) Pulse Ox 97 96 99 97 O2 Delivery Room Air Room Air Room Air Room Air 05/26/20 05/26/20 05/27/20 05/27/20 21:31 23:00 03:00 03:37 Temp 98.1 98.0 98.1 98.0 Pulse 66 67 66 65 Resp 21 22 B/P (MAP) 165/60 (95) 140/62 (88) 182/70 (107) 180/75 (110) Pulse Ox 99 98 O2 Delivery Room Air Room Air Justicifation of Admission Dx: Justifications for Admission: Justification of Admission Dx: Yes TINO FARLEY MD May 27, 2020 08:36
[2020-05-27 09:29] LABS: BASO # 0.1 x10^3/uL (0.0-0.2); BASO % 1 % (0-3); EOS # 0.2 x10^3/uL (0.0-0.7); EOS % 2 % (0-3); HEMATOCRIT 41.2 % (36.0-47.0); HEMOGLOBIN 13.5 g/dL (12.0-15.5); LYMPH # 2.4 x10^3/uL (1.0-4.8); LYMPH % 26 % (24-48); MEAN CORPUSCULAR HEMOGLOBIN 30 pg (25-35); MEAN CORPUSCULAR HGB CONC 33 g/dL (31-37); MEAN CORPUSCULAR VOLUME 92 fL (79-100); MONO # 0.7 x10^3/uL (0.0-1.1); MONO % 7 % (0-9); NEUT # 5.8 x10^3/uL (1.8-7.7); NEUT % 63 % (31-73); PLATELET COUNT 248 x10^3/uL (140-400); RED BLOOD COUNT 4.46 x10^6/uL (3.50-5.40); RED CELL DISTRIBUTION WIDTH 14.2 % (11.5-14.5); WHITE BLOOD COUNT 9.1 x10^3/uL (4.0-11.0)
[2020-05-27 10:12] LABS: CALCIUM 9.8 mg/dL (8.5-10.1); CREATININE 1.3 mg/dL (0.6-1.0); GFR 48.2; MAGNESIUM 1.9 mg/dL (1.8-2.4); PHOSPHORUS 2.9 mg/dL (2.6-4.7); POTASSIUM 3.9 mmol/L (3.5-5.1)
[2020-05-27] MEDS ORDERED: LOSARTAN POTASSIUM 50 MG TABLET. PO SCH (12:30)
--- NOTE | 2020-05-27 16:19 | NUR ---
SW following for discharge planning. Spoke with RN and reviewed chart. Pt from home with sister and [facility]. Pt on an ADA diet, room air, IV dextrose. PT recommendation is SNU. [place] met with pt. Pt refusing SNU but agreeable to resumption of HH on discharge. SW following.
[2020-05-27] MEDS: SERTRALINE 50 MG TABLET. PO SCH (18:07)
[2020-05-27] MEDS: ASPIRIN ENTERIC COATED 81 MG TABLET.DR. PO SCH (18:07)
[2020-05-27] MEDS: ENOXAPARIN 40 MG/0.4 ML SYRINGE. SQ SCH (18:07)
[2020-05-27] MEDS: METOPROLOL SUCC 24HR ER 25 MG TAB.ER.24H. PO SCH (18:10)
[2020-05-27] MEDS ORDERED: ATORVASTATIN CALCIUM 40 MG TABLET. PO SCH (21:00)
[2020-05-27] MEDS ORDERED: DONEPEZIL HCL 10 MG TABLET. PO SCH (21:00)
[2020-05-28 03:01] VITALS: BP 181/68
[2020-05-28] MEDS: ASPIRIN ENTERIC COATED 81 MG TABLET.DR. PO SCH (05:54)
[2020-05-28 07:00] VITALS: BP 200/76
[2020-05-28 08:51] LABS: CALCIUM 9.2 mg/dL (8.5-10.1); CREATININE 1.4 mg/dL (0.6-1.0); GFR 44.2; POTASSIUM 3.1 mmol/L (3.5-5.1)
[2020-05-28] MEDS: INSULIN LISPRO 300 UNITS/3 ML VIAL. SQ SCH ×3 (08:56→17:00)
[2020-05-28 11:00] VITALS: BP 125/77
--- NOTE | 2020-05-28 11:00 | PDOC ---
PROGRESS NOTES Date of Service: DATE: 05/28/20 TIME: 10:57 Chief Complaint Chief Complaint Images: Images CXR Impression: 1. No acute cardiopulmonary process. Negative head CT DISCHARGE DX Assessment/Plan Acute metabolic encephalopathy NOS DUE TO SEVERE HYPOGLYCEMIA, IMPROVED Acute delirium or confusional state due to metabolic disturbance JENNA due to vasomotor nephropathy Symptomatic hypoglycemia plan Admit to medicine for further management Advance diet as tolerated Continue D5 infusion with fluids Consider dementia prevention protocol Provide adequate lighting (open curtains during the day, turn the lights off at night) Provide frequent personal contact with family, friends, and staff or TV Encourage early and frequent mobilization PT OT screening ordered IV Haldol as needed for agitation, consider sitter as needed if non-redirectable agitation Avoid physical restraints, catheters or tubes, and benzodiazepines Nutrition consult if there is malnutrition or concern for vitamin deficiencies Continue IV fluids Lovenox for DVT prophylaxis Pepcid GI prophylaxis ADA diet Full code Discussed with RN and SW Dispo inpatient management as above DPOA is the daughters 05/27 remain on iv d5 but sugars low normal, her sister gives her insulin, patient does not appear able to self administer due to dementia 05/18 OFF D5W, D/C HOLD ALL INSULIN UNTIL SEEN SOON BY PCP D/C PLANNING 28 MIN Justifications for Admission Justifications for Admission Other Justification History of Present Illness History of Present Illness Chief Complaint: Chief Complain: AMS History of Present Illness: HPI: 75 year old female with history of diabetes type 2, hypertension, high cholesterol, TIA, kidney disease, high cholesterol, dementia, who presents to the ED today from home by EMS, EMS reports patient's blood glucose at home was 51 and she was not as responsive as normal, they state she was sluggish they called EMS, she was given D10, the stated she was much more awake. She arrives in the ED still sleepy but able to carry some conversations. Past Medical/Surgical History: PMH/PSH: Past Medical History: Anxiety, CHF, Dementia, Depression, Diabetes-Type II, High Cholesterol, Hypertension, Renal Disease, TIA, OSTEOARTHRITIS, OBSTRUCTIVE SLEEP APNEA Past Surgical History: NECK SURGERY, FEM POP Allergies: Allergies: Coded Allergies: No Known Drug Allergies (Unverified , 08/04/16) Family History: Family History: Difficult to obtain due to altered mental status Social History: Social History: Smoking Status: Never Smoker Alcohol Use: None Drug Use: None Current Medications: Vitals Vitals Vital Signs Date Time Temp Pulse Resp B/P (MAP) Pulse Ox O2 Delivery O2 Flow Rate FiO2 05/28/20 07:00 97.6 54 17 200/76 (117) 97 Room Air 97.6 Physical Exam Physical Exam Physcial Exam: GEN: No apparent distress. Alert mild confusion HEENT: Normal cephalic, atraumatic, external auditory canals are patent EYES: Extraocular muscles are intact, pupil are equally round and reactive to light and accommodation MUSCULOSKELETAL: Well developed , well nourished, good range of motion ENDOCRINE: No thyromegaly was palpated LYMPHATICS: No cervical chain or axillary nodes were noted HEMATOPOIETIC: No bruising NECK: Supple, no JVD, no thyromegaly was noted LUNGS: Clear to auscultation in all lung demarco without rhonchi or wheezing HEART: RRR, S!, S2 present. Peripheral pulses intact, no obvious murmurs noted ABDOMEN: Soft, nontender. Positive bowel sounds, no organomegaly, normal bowel sounds EXTREMITIES: Without clubbing, cyanosis, or edema. Pedal pulses intact. Negative Homans sign NEUROLOGIC: Normal speech and tone. A&O x 3, moves all extremities, no obvious focal deficits PSYCHIATRIC: Normal affect, normal mood. Stable SKIN: No ulcerations or rashes, good skin turgor, no jaundice VASCULAR: Good capillary refill, neurovascular bundle appears to be intact General: Alert, Oriented X3, Cooperative, No acute distress, Other (confused to details) Heart: Regular rate, Normal S1 Lungs: Clear Abdomen: Normal bowel sounds, Soft Extremities: No clubbing, No cyanosis, No edema Labs LABS Laboratory Tests Test 05/27/20 11:56 05/27/20 16:42 05/27/20 21:15 05/28/20 07:57 Glucose (Fingerstick) 143 mg/dL (70-99) 158 mg/dL (70-99) 196 mg/dL (70-99) Sodium Level 144 mmol/L (136-145) Potassium Level 3.1 mmol/L (3.5-5.1) Chloride Level 108 mmol/L (98-107) Carbon Dioxide Level 32 mmol/L (21-32) Anion Gap 4 (6-14) Blood Urea Nitrogen 22 mg/dL (7-20) Creatinine 1.4 mg/dL (0.6-1.0) Estimated GFR (Cockcroft-Gault) 44.2 Glucose Level 157 mg/dL (70-99) Calcium Level 9.2 mg/dL (8.5-10.1) Test 05/28/20 08:08 Glucose (Fingerstick) 172 mg/dL (70-99) Assessment and Plan Assessmemt and Plan Problems Medical Problems: (1) Hypoglycemia Status: Acute Comment Review of Relevant I have reviewed the following items jole (where applicable) has been applied. Labs Laboratory Tests Test 05/26/20 11:40 05/26/20 12:05 05/26/20 13:41 05/26/20 15:25 Glucose (Fingerstick) 81 mg/dL (70-99) 37 mg/dL (70-99) 92 mg/dL (70-99) White Blood Count 10.2 x10^3/uL (4.0-11.0) Red Blood Count 4.67 x10^6/uL (3.50-5.40) Hemoglobin 14.1 g/dL (12.0-15.5) Hematocrit 42.7 % (36.0-47.0) Mean Corpuscular Volume 92 fL (79-100) Mean Corpuscular Hemoglobin 30 pg (25-35) Mean Corpuscular Hemoglobin Concent 33 g/dL (31-37) Red Cell Distribution Width 13.9 % (11.5-14.5) Platelet Count 276 x10^3/uL (140-400) Neutrophils (%) (Auto) 84 % (31-73) Lymphocytes (%) (Auto) 10 % (24-48) Monocytes (%) (Auto) 5 % (0-9) Eosinophils (%) (Auto) 0 % (0-3) Basophils (%) (Auto) 1 % (0-3) Neutrophils # (Auto) 8.5 x10^3/uL (1.8-7.7) Lymphocytes # (Auto) 1.0 x10^3/uL (1.0-4.8) Monocytes # (Auto) 0.5 x10^3/uL (0.0-1.1) Eosinophils # (Auto) 0.0 x10^3/uL (0.0-0.7) Basophils # (Auto) 0.1 x10^3/uL (0.0-0.2) Prothrombin Time 13.6 SEC (11.7-14.0) Prothromb Time International Ratio 1.1 (0.8-1.1) Activated Partial Thromboplast Time 24 SEC (24-38) Sodium Level 141 mmol/L (136-145) Potassium Level 4.0 mmol/L (3.5-5.1) Chloride Level 104 mmol/L (98-107) Carbon Dioxide Level 32 mmol/L (21-32) Anion Gap 5 (6-14) Blood Urea Nitrogen 21 mg/dL (7-20) Creatinine 1.3 mg/dL (0.6-1.0) Estimated GFR (Cockcroft-Gault) 48.2 BUN/Creatinine Ratio 16 (6-20) Glucose Level 89 mg/dL (70-99) Calcium Level 9.9 mg/dL (8.5-10.1) Magnesium Level 2.0 mg/dL (1.8-2.4) Total Bilirubin 0.3 mg/dL (0.2-1.0) Aspartate Amino Transf (AST/SGOT) 25 U/L (15-37) Alanine Aminotransferase (ALT/SGPT) 20 U/L (14-59) Alkaline Phosphatase 104 U/L (46-116) Troponin I Quantitative < 0.017 ng/mL (0.000-0.055) VF-Xbh-U-Type Natriuretic Peptide 628 pg/mL (0-449) Total Protein 7.0 g/dL (6.4-8.2) Albumin 3.1 g/dL (3.4-5.0) Albumin/Globulin Ratio 0.8 (1.0-1.7) Lipase 164 U/L (73-393) Thyroid Stimulating Hormone (TSH) 2.310 uIU/mL (0.358-3.74) Test 05/26/20 20:23 05/27/20 02:40 05/27/20 07:42 05/27/20 08:45 Glucose (Fingerstick) 184 mg/dL (70-99) 89 mg/dL (70-99) 96 mg/dL (70-99) White Blood Count 9.1 x10^3/uL (4.0-11.0) Red Blood Count 4.46 x10^6/uL (3.50-5.40) Hemoglobin 13.5 g/dL (12.0-15.5) Hematocrit 41.2 % (36.0-47.0) Mean Corpuscular Volume 92 fL (79-100) Mean Corpuscular Hemoglobin 30 pg (25-35) Mean Corpuscular Hemoglobin Concent 33 g/dL (31-37) Red Cell Distribution Width 14.2 % (11.5-14.5) Platelet Count 248 x10^3/uL (140-400) Neutrophils (%) (Auto) 63 % (31-73) Lymphocytes (%) (Auto) 26 % (24-48) Monocytes (%) (Auto) 7 % (0-9) Eosinophils (%) (Auto) 2 % (0-3) Basophils (%) (Auto) 1 % (0-3) Neutrophils # (Auto) 5.8 x10^3/uL (1.8-7.7) Lymphocytes # (Auto) 2.4 x10^3/uL (1.0-4.8) Monocytes # (Auto) 0.7 x10^3/uL (0.0-1.1) Eosinophils # (Auto) 0.2 x10^3/uL (0.0-0.7) Basophils # (Auto) 0.1 x10^3/uL (0.0-0.2) Sodium Level 145 mmol/L (136-145) Potassium Level 3.9 mmol/L (3.5-5.1) Chloride Level 106 mmol/L (98-107) Carbon Dioxide Level 31 mmol/L (21-32) Anion Gap 8 (6-14) Blood Urea Nitrogen 19 mg/dL (7-20) Creatinine 1.3 mg/dL (0.6-1.0) Estimated GFR (Cockcroft-Gault) 48.2 Glucose Level 84 mg/dL (70-99) Calcium Level 9.8 mg/dL (8.5-10.1) Phosphorus Level 2.9 mg/dL (2.6-4.7) Magnesium Level 1.9 mg/dL (1.8-2.4) Test 05/27/20 11:56 05/27/20 16:42 05/27/20 21:15 05/28/20 07:57 Glucose (Fingerstick) 143 mg/dL (70-99) 158 mg/dL (70-99) 196 mg/dL (70-99) Sodium Level 144 mmol/L (136-145) Potassium Level 3.1 mmol/L (3.5-5.1) Chloride Level 108 mmol/L (98-107) Carbon Dioxide Level 32 mmol/L (21-32) Anion Gap 4 (6-14) Blood Urea Nitrogen 22 mg/dL (7-20) Creatinine 1.4 mg/dL (0.6-1.0) Estimated GFR (Cockcroft-Gault) 44.2 Glucose Level 157 mg/dL (70-99) Calcium Level 9.2 mg/dL (8.5-10.1) Test 05/28/20 08:08 Glucose (Fingerstick) 172 mg/dL (70-99) Laboratory Tests Test 05/27/20 11:56 05/27/20 16:42 05/27/20 21:15 05/28/20 07:57 Glucose (Fingerstick) 143 mg/dL (70-99) 158 mg/dL (70-99) 196 mg/dL (70-99) Sodium Level 144 mmol/L (136-145) Potassium Level 3.1 mmol/L (3.5-5.1) Chloride Level 108 mmol/L (98-107) Carbon Dioxide Level 32 mmol/L (21-32) Anion Gap 4 (6-14) Blood Urea Nitrogen 22 mg/dL (7-20) Creatinine 1.4 mg/dL (0.6-1.0) Estimated GFR (Cockcroft-Gault) 44.2 Glucose Level 157 mg/dL (70-99) Calcium Level 9.2 mg/dL (8.5-10.1) Test 05/28/20 08:08 Glucose (Fingerstick) 172 mg/dL (70-99) Medications Current Medications Dextrose/Sodium Chloride 1,000 ml @ 75 mls/hr 1X ONCE IV Last administered on 05/26/20at 12:13; Start 05/26/20 at 12:00; Stop 05/27/20 at 01:19; Status DC Dextrose (Dextrose 50%-Water Syringe) 25 gm STK-MED ONCE IV ; Start 05/26/20 at 13:44; Stop 05/26/20 at 13:45; Status DC Dextrose (Dextrose 50%-Water Syringe) 25 gm 1X ONCE IV Last administered on 05/26/20at 13:49; Start 05/26/20 at 13:45; Stop 05/26/20 at 13:49; Status DC Ondansetron HCl (Zofran) 4 mg PRN Q8HRS PRN IV NAUSEA/VOMITING; Start 05/26/20 at 15:00; Stop 05/27/20 at 12:15; Status DC Acetaminophen (Tylenol) 650 mg PRN Q4HRS PRN PO FEVER > 100.3'F; Start 05/26/20 at 15:00; Stop 05/27/20 at 12:15; Status DC Dextrose/Sodium Chloride 1,000 ml @ 75 mls/hr 1X ONCE IV ; Start 05/26/20 at 15:00; Stop 05/27/20 at 04:19; Status DC Sennosides (Senna) 17.2 mg PRN BID PRN PO CONSTIPATION; Start 05/26/20 at 15:45 Docusate Sodium (Colace) 100 mg PRN DAILY PRN PO HARD STOOLS; Start 05/26/20 at 15:45 Ondansetron HCl (Zofran) 4 mg PRN Q6HRS PRN IVP NAUSEA/VOMITING; Start 05/26/20 at 15:45 Insulin Human Lispro (HumaLOG) 0-7 UNITS TIDWMEALS SQ Last administered on 05/28/20at 08:56; Start 05/26/20 at 17:00 Dextrose (Dextrose 50%-Water Syringe) 12.5 gm PRN Q15MIN PRN IV SEE COMMENTS; Start 05/26/20 at 15:45 Dextrose/Sodium Chloride 1,000 ml @ 50 mls/hr Q20H IV Last administered on 05/27/20at 17:57; Start 05/26/20 at 15:45; Stop 05/27/20 at 20:50; Status DC Acetaminophen (Tylenol) 650 mg PRN Q4HRS PRN PO TEMP OVER 100.4F OR MILD PAIN Last administered on 05/27/20at 21:58; Start 05/26/20 at 15:45 Enoxaparin Sodium (Lovenox 40mg Syringe) 40 mg Q24H SQ Last administered on 05/27/20at 18:07; Start 05/26/20 at 16:00 Amlodipine Besylate (Norvasc) 10 mg DAILY PO Last administered on 05/27/20at 18:11; Start 05/27/20 at 12:30 Aspirin (Ecotrin) 81 mg DAILY07 PO Last administered on 05/28/20at 05:54; Start 05/27/20 at 12:30 Atorvastatin Calcium (Lipitor) 40 mg HS PO Last administered on 05/27/20at 21:56; Start 05/27/20 at 21:00 Donepezil HCl (Aricept) 10 mg HS PO Last administered on 05/27/20at 21:56; Start 05/27/20 at 21:00 Losartan Potassium (Cozaar) 50 mg DAILY PO Last administered on 05/27/20at 18:11; Start 05/27/20 at 12:30 Metoprolol Succinate (Toprol Xl) 75 mg DAILY PO Last administered on 05/27/20at 18:10; Start 05/27/20 at 12:30 Sertraline HCl (Zoloft) 50 mg DAILY PO Last administered on 05/27/20at 18:07; Start 05/27/20 at 12:30 Active Scripts Active Cephalexin 500 Mg Tablet 500 Mg PO BID 7 Days Take 1 tablet twice a day for the next 7 days for your urinary tract infection. Tramadol Hcl 50 Mg Tablet 50 Mg PO PRN Q6HRS PRN 6 Days Levofloxacin 250 Mg Tablet 250 Mg PO Q24H 8 Days Novolog Flexpen (Insulin Aspart) 100 Unit/1 Ml Insuln.pen 0 Units SQ TIDWMEALS 30 Days Reported Metoprolol Succinate ( Xl ) (Metoprolol Succinate) 25 Mg Tab.er.24h 3 Tab PO DAILY Losartan Potassium 50 Mg Tablet 50 Mg PO DAILY Levemir Flextouch (Insulin Detemir) 100 Unit/1 Ml Insuln.pen 40 Unit SQ HS Pioglitazone Hcl 30 Mg Tablet 30 Mg PO DAILY Zoloft (Sertraline Hcl) 50 Mg Tablet 1 Tab PO DAILY Atorvastatin Calcium 40 Mg Tablet 40 Mg PO HS Aspirin Ec (Aspirin) 81 Mg Tablet.dr 81 Mg PO Amlodipine Besylate 10 Mg Tablet 10 Mg PO DAILY Donepezil Hcl 10 Mg Tablet 10 Mg PO HS Vitals/I & O Vital Sign - Last 24 Hours 05/27/20 05/27/20 05/27/20 05/27/20 11:00 15:00 18:10 18:11 Temp 97.8 98.0 97.8 98.0 Pulse 65 71 77 77 Resp 16 16 B/P (MAP) 169/68 (101) 129/66 (87) 174/84 174/84 Pulse Ox 97 97 O2 Delivery Room Air Room Air 05/27/20 05/27/20 05/27/20 05/27/20 18:11 19:00 20:00 23:00 Temp 98.3 98.0 98.3 98.0 Pulse 77 66 60 Resp 20 18 B/P (MAP) 174/84 149/74 (99) 172/69 (103) Pulse Ox 95 98 O2 Delivery Room Air Room Air Room Air 05/28/20 05/28/20 03:01 07:00 Temp 97.6 97.6 97.6 97.6 Pulse 60 54 Resp 17 17 B/P (MAP) 181/68 (105) 200/76 (117) Pulse Ox 100 97 O2 Delivery Room Air Room Air Intake and Output 05/27/20 05/27/20 05/28/20 15:00 23:00 07:00 Intake Total 2300 ml Balance 2300 ml Justicifation of Admission Dx: Justifications for Admission: Justification of Admission Dx: Yes TINO FARLEY MD May 28, 2020 11:00
[2020-05-28] MEDS ORDERED: ACET325T9 PO (11:07)
[2020-05-28] MEDS ORDERED: DOCU-153 PO (11:07)
[2020-05-28] MEDS ORDERED: AMOX1TAB10 PO (11:07)
[2020-05-28] MEDS ORDERED: INSU100V35 SQ (11:07)
[2020-05-28] MEDS ORDERED: LOSA-73 PO (11:07)
--- NOTE | 2020-05-28 11:08 | SNU/HH DC ---
DISCHARGE WITH HOME HEALTH DISCHARGE INFORMATION: Final Diagnosis: Problems Medical Problems: (1) Hypoglycemia Status: Acute Condition on Discharge: Stable CODE STATUS: Code Status: Full HOME HEALTH: Face to Face: I certify this patient is under my care and that I, or a nurse practitioner or physician's acute care nursing assistant working with me, had a face to face encounter that meets the physician face to face encounter requirements with this patient on []. Medical Complications: Dementia, HTN Shelter For: Assess Cardiopulm Status, Assess & Educate Safety, Assess/Skilled Observatio, Diabetic Care, Medication Management, Pain Management RN For Eval/Treatment: Yes Physical Therapy For: Evalulation/Treatment Occupational Therapy For: Evaluation/Treatment Speech Language Pathology For: Evaluation/Treatment Home Health Aide For: Self-care MACHINE DESIGN ENGINEER For: Community Resources Pt Meets Homebound Status: Limited distance walking, Poor cognition POST DISCHARGE ORDERS: Activity Instructions for Disc: Activity as tolerated Weight Bearing Status after Di: Full weight bearing, As tolerated Bathing Instructions: Shower-keep dressing dry, No Tub Bath until see DIET AFTER DISCHARGE: ADA Wound/Incision Care: Other, see below CHECKS AFTER DISCHARGE: Checks after discharge: Check blood press - daily, Check blood sugar, ac/hs FOLLOW-UP: PCP to follow Home Health: PCP [facility] TREATMENT/EQUIPMENT ORDERS: Adaptive Equipment Issued: Four wheeled walker, Grab bars, Raised toilet seat CERTIFICATION STATEMENT: Certification Statement: Certification Statement: Based on the above finding, I certify that this patient is confined to the home and needs intermittent fci care, physical therapy and/or speech therapy, or continues to need occupational therapy.~ This patient is under my care, and I have initiated the establishment of the plan of care.~ This patient will be followed by myself or a community physician who will periodically review the plan of care. Home Meds Active Scripts Cephalexin (CEPHALEXIN) 500 Mg Tablet, 500 MG PO BID for URINARY TRACT INFECTION for 7 Days, #14 TAB 0 Refills Take 1 tablet twice a day for the next 7 days for your urinary tract infection. Prov:CAYLA GOYAL WEIGHT COUNT OPERATOR 04/14/20 Tramadol Hcl (TRAMADOL HCL) 50 Mg Tablet, 50 MG PO PRN Q6HRS PRN for MILD PAIN 1-3 for 6 Days, #15 TAB Prov:KULDIP RAMON MD 12/07/19 Levofloxacin (LEVOFLOXACIN) 250 Mg Tablet, 250 MG PO Q24H for E coli bacteremia for 8 Days, #8 TAB Prov:KULDIP RAMON MD 12/07/19 Insulin Aspart (NOVOLOG FLEXPEN) 100 Unit/1 Ml Insuln.pen, 0 UNITS SQ TIDWMEALS for 30 Days, LIQUID 5 Refills Prov:ДМИТРИЙ RILEY MD 03/17/16 Reported Medications Metoprolol Succinate (METOPROLOL SUCCINATE ( XL )) 25 Mg Tab.er.24h, 3 TAB PO DAILY for hypertension, #30 TAB 5 Refills 09/06/18 Losartan Potassium (LOSARTAN POTASSIUM) 50 Mg Tablet, 50 MG PO DAILY for HYPERTENSION, TAB 06/28/18 Insulin Detemir (Levemir Flextouch) 100 Unit/1 Ml Insuln.pen, 40 UNIT SQ HS, SYR 06/12/18 Pioglitazone Hcl (PIOGLITAZONE HCL) 30 Mg Tablet, 30 MG PO DAILY, TAB 06/12/18 Sertraline Hcl (ZOLOFT) 50 Mg Tablet, 1 TAB PO DAILY, #30 TAB 2 Refills 06/12/18 Atorvastatin Calcium (ATORVASTATIN CALCIUM) 40 Mg Tablet, 40 MG PO HS for FOR CHOLESTEROL, #30 TAB 0 Refills 07/21/16 Aspirin (ASPIRIN EC) 81 Mg Tablet.dr, 81 MG PO 03/14/16 Amlodipine Besylate (AMLODIPINE BESYLATE) 10 Mg Tablet, 10 MG PO DAILY, TAB 03/14/16 Donepezil Hcl (DONEPEZIL HCL) 10 Mg Tablet, 10 MG PO HS, TAB 03/14/16 TINO FARLEY MD May 28, 2020 11:08
[2020-05-28] MEDS ORDERED: AMOXICILLIN/K CLAV 500/125MG TABLET. PO SCH (11:30)
[2020-05-28] MEDS ORDERED: LOSARTAN POTASSIUM 50 MG TABLET. PO SCH (11:30)
[2020-05-28] MEDS: METOPROLOL SUCC 24HR ER 25 MG TAB.ER.24H. PO SCH (12:55)
[2020-05-28] MEDS: SERTRALINE 50 MG TABLET. PO SCH (12:58)
--- NOTE | 2020-05-28 13:56 | NUR ---
SW following for discharge planning. Spoke with RN and reviewed chart. Pt to discharge home today, 05/28 with resumption of [facility]. Discharge orders provided to Jennifer with [facility]. No further SW needs at this time.
[2020-05-28 15:00] VITALS: BP 170/65
[2020-05-28] MEDS: ENOXAPARIN 40 MG/0.4 ML SYRINGE. SQ SCH (15:32)
[2020-05-28] MEDS ORDERED: POTASSIUM BICARB 20 MEQ EFFERVESCENT TABLET. PO ONE (15:45)
== END 2020-05-28 17:35 | disposition home health service (06) | DRG 637 ==
LOC: ER 11:31 → 5 NORTH 14:36
PROVIDERS: ADMIT Internal Medicine; ATTEND Internal Medicine
DX: E11.649 Type 2 diabetes mellitus with hypoglycemia without coma (principal); G93.41 Metabolic encephalopathy; N39.0 Urinary tract infection, site not specified; N17.0 Acute kidney failure with tubular necrosis; I11.0 Hypertensive heart disease with heart failure; I50.9 Heart failure, unspecified; E78.00 Pure hypercholesterolemia, unspecified; F03.90 Unspecified dementia, unspecified severity, without behavioral disturbance, psychotic disturbance, mood disturbance, and anxiety; Z86.73 Personal history of transient ischemic attack (TIA), and cerebral infarction without residual deficits; F32.9 Major depressive disorder, single episode, unspecified; F41.9 Anxiety disorder, unspecified; M19.90 Unspecified osteoarthritis, unspecified site
CPT/HCPCS: 36415; 70450; 71045; 80048; 80053; 82962; 83690; 83735; 83880; 84100; 84443; 84484; 85025; 85610; 85730; 93005; 96365; 96366; 96376; J1650; J1815; J7042; 97530-GO; 97530-GP; 97535-GO; 99285-25; G0378